=== PATIENT | male | born 1955 | race Caucasian/White ===

== ENCOUNTER → 2017-02-06 | Outpatient (CLI) | payer BC ==
[~2017-02-06] MED LIST: NCDT14 EX; THM100 PO
--- NOTE | 2017-02-06 11:58 | DIAGNOSTIC IMAGING REPORT ---
(CHEST) THORAX WITHOUT CLINICAL HISTORY: Pulmonary nodule. Follow-up study. COMPARISON STUDY: 04/25/2016 CT DOSE: 224.42 mGycm TECHNIQUE: CT of the thorax was performed from the thoracic inlet to the lung bases. Images are reviewed in the axial, sagittal, and coronal planes. IV contrast was not administered for this examination. A dose lowering technique was utilized adhering to the principles of ALARA. FINDINGS: Thyroid: Imaged portions of the thyroid gland are normal in appearance. Thoracic aorta: The thoracic aorta is normal in course and caliber, noting standard 3 vessel arch anatomy. Heart: There are coronary artery calcifications. Lungs and pleural spaces: No pleural effusions are visualized. There is no focal pulmonary consolidation. There are stable areas of interstitial scarring most pronounced within the left lower lobe and right upper lobe. There is a thin-walled 32 mm right upper lobe cavity, similar to the prior study. There is a stable 6 mm right lower lobe nodule, an area of parenchymal scarring. No new or enlarging pulmonary nodules are evident. Mediastinum: There is no mediastinal lymphadenopathy. Nataliia: There is no evidence of pathologic hilar adenopathy given the limitations of a noncontrast study Axilla: There is no evidence of pathologic axillary lymphadenopathy Upper abdomen: There is mild dilatation of the right renal collecting system, and pelvis Skeletal structures: There are no lytic or blastic osseous lesions. IMPRESSION: 1. Emphysema 2. Stable areas of presumed parenchymal scarring, including a thin-walled cavitary lesion within the right upper lobe measuring 32 mm, as well as a 6 mm irregular nodule within the superior segment of the right lower lobe. 3. No evidence of pathologic adenopathy 4. Mild fullness of the right renal collecting system Electronically signed by: Marcos Antonio M.D. 02/06/2017 11:57 AM Dictated Date/Time: 02/06/2017 11:52 AM
== END | disposition home or self-care (01) ==
LOC: C.CTS 11:12
PROVIDERS: ATTEND Internal Medicine
DX: R91.1 Solitary pulmonary nodule (principal); J43.9 Emphysema, unspecified

== ENCOUNTER → 2017-09-26 | Outpatient (CLI) | payer BC ==
--- NOTE | 2017-09-26 10:09 | DIAGNOSTIC IMAGING REPORT ---
CT SCAN OF THE CHEST WITHOUT IV CONTRAST CLINICAL HISTORY: Pulmonary nodules. COMPARISON STUDY: Chest CT scans dated 02/06/2017 and 10/03/2015. PET/CT dated 10/26/2015. TECHNIQUE: CT scan of the thorax was performed from the thoracic inlet to the upper abdomen. Images are reviewed in the axial, sagittal, and coronal planes. IV contrast was not administered for this examination as per the referring clinician. A dose lowering protocol was utilized adhering to the principles of ALARA. CT DOSE: 206.42 mGy.cm FINDINGS: Thyroid: Imaged portions of the thyroid gland are normal in size and attenuation. Thoracic aorta: There is atherosclerotic calcification of the thoracic aorta, which is normal in caliber and demonstrates standard 3-vessel arch anatomy. Heart: The heart is top normal in size and without pericardial effusion. The coronary arteries are densely calcified. The pulmonary trunk is normal in caliber. Lungs and pleural spaces: Emphysema an apical scarring are observed. Fat-containing Bochdalek hernias are seen at both lung bases. There is no airspace consolidation or pleural effusion. An approximately 3.5 cm focus of cavitation is again seen in the posterior right upper lobe with surrounding irregular soft tissue density material. This likely is unchanged and represents scarring/fibrosis. Additional foci of scarring are seen in both lower lobes, with a nodular focus in the superior segment of the right lower lobe measuring 6 mm. No new pulmonary lesion is identified. The trachea is clear. Minimal secretions are noted in the mainstem bronchi. Mediastinum: There is no mediastinal lymphadenopathy. Nataliia: Not well assessed without IV contrast. Axillae: There is no axillary lymphadenopathy. Upper abdomen: A 1.4 cm right adrenal nodule meets CT criteria for a fat-containing adenoma. A tiny hiatal hernia is observed. There is atherosclerotic calcification of the abdominal aorta. Skeletal structures: The skeletal structures are osteopenic. Mild degenerative change and scoliosis are noted throughout the thoracic spine. No lytic or blastic bony lesions are seen. A hemangioma is noted in the upper thoracic spine. There are healed bilateral rib fractures. IMPRESSION: 1. There has been no significant change in the focus of cavitation with surrounding abnormal soft tissue at the right apex as compared to studies dating back to 2016. This likely represents the sequelae of previous infection and scarring/fibrosis. 2. Additional foci of scarring are present in the both lower lobes with mild nodularity on the right. This is also unchanged. 3. Emphysema. 4. There is no airspace consolidation or pleural effusion. 5. Additional findings as above. Electronically signed by: Song Salcido M.D. 09/26/2017 10:07 AM Dictated Date/Time: 09/26/2017 9:59 AM
== END | disposition home or self-care (01) ==
LOC: C.CTS 09:41
PROVIDERS: ATTEND Physician Assistant
DX: R91.1 Solitary pulmonary nodule (principal)

== ENCOUNTER 2022-05-31 14:21 | Observation (INO) ==
[2022-05-31] MEDS ORDERED: methylPREDNISolone 125 MG/2 ML VIAL IV STA (14:37)
[2022-05-31] MEDS ORDERED: ALBUTEROL 0.083% NEBU SOLN 3 ML VIAL NEB STA (14:37)
--- NOTE | 2022-05-31 14:44 | Emergency Department Note ---
History of Present Illness General Chief complaint: Respiratory Distress Stated complaint: SOB Time Seen by Provider: 05/31/22 14:31 Source: patient and RN notes reviewed Mode of arrival: EMS Limitations: no limitations History of Present Illness This patient is a 66-year-old male who was brought in by EMS after having shortness of breath for a day he does a history of COPD D and has had exacerbations before but never this bad he tells me he does not wear home oxygen. They gave him 2 DuoNeb's and 2 albuterol on route. He does not wear oxygen at home. The nurse came and got me to see him quickly as his O2 sat was in the 70s and he was in a tripod position. When I saw him he was sitting on the bedside. He has some mild increased work of breathing he is able to speak several words and he is nondiaphoretic. His lungs sound diminished bilaterally with some scattered wheezes. He denies any chest pain. he denies any trauma no fever or chills. His cough has been mostly dry. No pain or swelling in his legs. Denies pain anywhere Allergies Allergy/AdvReac Type Severity Reaction Status Date / Time No Known Allergies Allergy Unverified 05/31/22 18:01 Past Med/Surg History Medical History Alcohol use disorder HTN (hypertension) Lung nodule Surgical History Hx of colonoscopy Family History Other Cancer Hypertension Social History Smoking Status: Former smoker Hx Alcohol Use: Yes Alcohol type: beer Alcohol type Comment: 5 beers nightly, last drink 05/30/22 Hx Substance Use: No Preferred Language: Ukrainian Communication Ability: Effective Tire Buster Required: No Beliefs That Will Affect Care: None Current Living Situation: Family Feels Safe at Home: Yes Safety Concerns: Feels Safe At This Time Assistive Devices: Denture - Upper, Denture - Lower and Glasses Immunizations: Past medical historyCOPD Allergiesdenies Social historyhistory of smoking Review of Systems A total of 10 systems reviewed and were otherwise negative Physical Exam Vital Signs Vital Signs - 24 hr 05/31/22 14:26 05/31/22 14:49 05/31/22 14:49 Pulse Rate 130 H Pulse Rate [Right Finger] Pulse Rate from SpO2 Sensor Respiratory Rate 28 H Respiratory Effort / Characteristics Labored Tripoding Labored Respiratory Depth Respiratory Pattern Tachypnea Blood Pressure 162/139 H Blood Pressure Mean 146 Pulse Oximetry 78 L 78 L Oxygen Delivery Method Room Air Room Air Room Air Fraction of Inspired Oxygen Sepsis Recent Fever Within 48 Hours No Sepsis New/Unexplained Change in Mental Status N/A Sepsis Action Taken by Nursing No Action Required 05/31/22 14:50 05/31/22 14:50 05/31/22 15:25 Pulse Rate 139 H Pulse Rate [Right Finger] 139 H Pulse Rate from SpO2 Sensor Respiratory Rate 27 H 27 H Respiratory Effort / Characteristics Spontaneous Labored Short of Breath Tripoding Spontaneous Labored Short of Breath Tripoding Respiratory Depth Normal Respiratory Pattern Tachypnea Blood Pressure Blood Pressure Mean Pulse Oximetry 96 96 99 Oxygen Delivery Method BiPAP BiPAP Fraction of Inspired Oxygen 30 30 Sepsis Recent Fever Within 48 Hours Sepsis New/Unexplained Change in Mental Status Sepsis Action Taken by Nursing 05/31/22 15:17 05/31/22 15:17 05/31/22 15:30 Pulse Rate 134 H Pulse Rate [Right Finger] Pulse Rate from SpO2 Sensor 135 H Respiratory Rate 27 H Respiratory Effort / Characteristics Respiratory Depth Respiratory Pattern Blood Pressure 116/74 110/93 Blood Pressure Mean 88 98 Pulse Oximetry 97 Oxygen Delivery Method BiPAP Fraction of Inspired Oxygen Sepsis Recent Fever Within 48 Hours Sepsis New/Unexplained Change in Mental Status Sepsis Action Taken by Nursing 05/31/22 15:30 05/31/22 16:00 05/31/22 16:23 Pulse Rate 136 H 135 H 136 H Pulse Rate [Right Finger] Pulse Rate from SpO2 Sensor 137 H 136 H Respiratory Rate 27 H 27 H 34 H Respiratory Effort / Characteristics Spontaneous Labored Retracting Short of Breath Respiratory Depth Respiratory Pattern Tachypnea Blood Pressure Blood Pressure Mean Pulse Oximetry 99 99 96 Oxygen Delivery Method Fraction of Inspired Oxygen 30 Sepsis Recent Fever Within 48 Hours Sepsis New/Unexplained Change in Mental Status Sepsis Action Taken by Nursing 05/31/22 16:06 05/31/22 16:06 05/31/22 16:30 Pulse Rate 136 H Pulse Rate [Right Finger] Pulse Rate from SpO2 Sensor 136 H Respiratory Rate 28 H Respiratory Effort / Characteristics Respiratory Depth Respiratory Pattern Blood Pressure 118/81 103/77 Blood Pressure Mean 93 85 Pulse Oximetry 99 Oxygen Delivery Method Fraction of Inspired Oxygen Sepsis Recent Fever Within 48 Hours Sepsis New/Unexplained Change in Mental Status Sepsis Action Taken by Nursing 05/31/22 16:30 05/31/22 17:00 05/31/22 17:30 Pulse Rate 135 H 134 H 130 H Pulse Rate [Right Finger] Pulse Rate from SpO2 Sensor 135 H 136 H 131 H Respiratory Rate 29 H 24 25 H Respiratory Effort / Characteristics Respiratory Depth Respiratory Pattern Blood Pressure Blood Pressure Mean Pulse Oximetry 94 94 95 Oxygen Delivery Method Fraction of Inspired Oxygen Sepsis Recent Fever Within 48 Hours Sepsis New/Unexplained Change in Mental Status Sepsis Action Taken by Nursing 05/31/22 17:31 05/31/22 17:31 Pulse Rate 134 H Pulse Rate [Right Finger] Pulse Rate from SpO2 Sensor 137 H Respiratory Rate 25 H Respiratory Effort / Characteristics Respiratory Depth Respiratory Pattern Blood Pressure 123/98 Blood Pressure Mean 106 Pulse Oximetry 95 Oxygen Delivery Method Fraction of Inspired Oxygen Sepsis Recent Fever Within 48 Hours Sepsis New/Unexplained Change in Mental Status Sepsis Action Taken by Nursing General: Well developed well nourished ill-appearing older male who is sitting on the side of the bed in a tripod position complaining of feeling short of breath. His speech is normal and he is able to speak several words. HEENT: Normal cephalic atraumatic. Pupils are equal round and reactive to light. Extraocular movements are intact. Oropharynx is pink with moist mucous membranes. No swelling of the mouth lips or tongue. Neck: Supple with a midline trachea. No meningeal signs or stiffness, no JVD or bruits. No Stridor. Chest: Diminished to auscultation bilaterally with some scattered wheezes and mild to moderate increased work of breathing. Heart: Regular rate and rhythm without murmurs or gallops. Abdomen: Soft nontender, nondistended without rebound guarding or rigidity. Extremities: No cyanosis clubbing or edema. No calf tenderness or assymetry Spine/Back. Non tender to palpation. No CVA tenderness Skin: Good turgor without rashes. Neurologic exam: Cranial nerves two through 12 are intact. Motor and sensation are intact and symmetrical throughout. Course Administered Medications Albuterol (Albut/Ipratrop 3mg/0.5mg Neb 3 Ml Vial) 3 ml NEB Q4R FRANCOIS; Protocol Stop: 06/30/22 18:59 Last Admin: 05/31/22 19:54 Dose: Not Given Documented By: CHERRIE Folic Acid (Folic Acid 1 Mg Tab) 1 mg PO QAM FRANCOIS Stop: 06/30/22 18:59 Last Admin: 05/31/22 21:16 Dose: Not Given Documented By: BASILIO Heparin Sodium/Dextrose (Heparin Sodium/Dextrose) 25,000 units in 500 mls @ 20 mls/hr IV .Q24H FRANCOIS; Protocol Stop: 06/30/22 18:44 Last Admin: 05/31/22 19:02 Dose: 1,000 units/hr, 20 mls/hr Documented By: YASH Co-signed By: GIANFRANCO Ceftriaxone Sodium 2,000 mg/ (Dextrose) 70 mls @ 100 mls/hr IV Q24H FRANCOIS; Pro tocol Stop: 06/07/22 19:29 Last Admin: 05/31/22 21:13 Dose: 100 mls/hr Documented By: BASILIO Methylprednisolone 40 mg/ (Syringe) 0.64 mls @ 1.5 mls/min IV BID FRANCOIS Stop: 06/30/22 20:59 Last Admin: 05/31/22 21:12 Dose: 1.5 mls/min Documented By: BASILIO Thiamine HCl (Thiamine Hcl 100 Mg Tab) 100 mg PO QAM FRANCOIS Stop: 06/30/22 18:59 Last Admin: 05/31/22 21:17 Dose: Not Given Documented By: BASILIO Discontinued Medications Albuterol (Albuterol 0.083% Nebu Soln 3 Ml Vial) 10 mg NEB NOW STA; Protocol Stop: 05/31/22 14:38 Last Admin: 05/31/22 14:49 Dose: 10 mg Documented By: DALLIN Aspirin (Aspirin Chew 324 Mg) Confirm Administered Dose 324 mg .ROUTE .STK-MED ONE Stop: 05/31/22 19:01 Last Admin: 05/31/22 19:09 Dose: 324 mg Documented By: YASH Aspirin (Aspirin 81 Mg Chew) 324 mg PO NOW STA Stop: 05/31/22 19:00 Last Admin: 05/31/22 20:23 Dose: Not Given Documented By: BASILIO Fentanyl Citrate (Fentanyl Citrate 100 Mcg/2 Ml Vial) Confirm Administered Dose 100 mcg .ROUTE .STK-MED ONE Stop: 05/31/22 19:16 Last Admin: 05/31/22 21:11 Dose: Not Given Documented By: BASILIO Heparin Sodium (Porcine) (Heparin Sod (Porcine) 1000 Unit/Ml) 4,000 units IV NOW ONE Stop: 05/31/22 19:01 Last Admin: 05/31/22 19:12 Dose: 4,000 units Documented By: YASH Co-signed By: JOSE Heparin Sodium (Porcine) (Heparin (Porcine) 1000 Unit/Ml 10 Ml (Almond Cutting Machine Tender Use Only)) Confirm Administered Dose 10,000 units .ROUTE .STK-MED ONE Stop: 05/31/22 19:16 Last Admin: 05/31/22 21:11 Dose: Not Given Documented By: BASILIO Heparin Sodium/Dextrose (Heparin Iv Adult Wt-Based Standard With Bolus Protocol) 1 each IV Q15M [facility]; Protocol Stop: 05/31/22 20:01 Last Admin: 05/31/22 21:10 Dose: 1 each Documented By: BASILIO Heparin Sodium/Sodium Chloride (Heparin In Nss Infusion 1000 Unit/500 Ml (2 U/Ml) Bag) Confirm Administered Dose 3,000 units IV .STK-MED ONE Stop: 05/31/22 19:16 Last Admin: 05/31/22 21:11 Dose: Not Given Documented By: BASILIO Cefepime HCl (Maxipime) 2,000 mg in 20 mls @ 5 mls/min IV NOW STA; Protocol Stop: 05/31/22 16:13 Last Admin: 05/31/22 16:36 Dose: 5 mls/min Documented By: ULISES Sodium Chloride (Nss 1000ml) 1,000 mls @ 999 mls/hr IV .Q1H1M ONE Stop: 05/31/22 17:14 Last Infusion: 05/31/22 17:55 Dose: 0 mls/hr Documented By: Admin: 05/31/22 16:36 Dose: 999 mls/hr Documented By: ULISES Lorazepam (Lorazepam 1 Mg/1 Ml Syr) 0.5 mg IV NOW STA; Protocol Stop: 05/31/22 17:57 Last Admin: 05/31/22 18:00 Dose: 0.5 mg Documented By: ULISES Methylprednisolone (Methylprednisolone 125 Mg/2 Ml Vial) 125 mg IV NOW STA Stop: 05/31/22 14:38 Last Admin: 05/31/22 15:21 Dose: 125 mg Documented By: ULISES Midazolam HCl (Midazolam Hcl 1 Mg/Ml 2ml Vial) Confirm Administered Dose 2 mg .ROUTE .STK-MED ONE Stop: 05/31/22 19:16 Last Admin: 05/31/22 21:12 Dose: Not Given Documented By: BASILIO Nicardipine HCl (Nicardipine Hcl Inj 2.5 Mg/Ml 10 Ml Amp) Confirm Administered Dose 25 mg .ROUTE .STK-MED ONE Stop: 05/31/22 19:16 Last Admin: 05/31/22 21:12 Dose: Not Given Documented By: BASILIO Nitroglycerin/Dextrose (Nitroglycerin/D5w 100mcg/Ml 20ml Syr) Confirm Administered Dose 2,000 mcg .ROUTE .STK-MED ONE Stop: 05/31/22 19:16 Last Admin: 05/31/22 21:12 Dose: Not Given Documented By: BASILIO Critical Care Time Critical Care Time: Yes Total Critical Care Time: 60 Due to the patient's respiratory distress, significant hypoxemia and unstable vital signs with a significantly abnormal labs and significant work-up obtained as well as consultation with intensive care cardiology and the hospitalist and frequent reassessment and discussion with the patient and his family, I have personally spent greater than 60 minutes of critical care time in the direct management of this patient. This includes bedside care, interpretation of diagnostic studies, and testing, discussion with consultants, patient, and family members, and other required patient management activities. This 60 minutes is in excess of all separately billable procedures. Medical Decision Making Differential Diagnosis COPD exacerbation, pneumonia, COVID, influenza, sepsis, acute coronary syndrome, arrhythmia, sepsis, hypoxemia, CO2 retention Medical Records Attestation: I reviewed the patient's medical records. Home Medications Current Medication List: was personally reviewed by me Laboratory Data Attestation: I reviewed the patient's lab results. Result diagrams: 05/31/22 19:00 05/31/22 19:00 Lab Results 05/31/22 05/31/22 05/31/22 Range/Units 15:12 15:15 15:15 WBC (4.8-10.8) K/ul RBC (4.63-6.08) M/uL Hgb (14.0-18.0) g/dl Hct (40.1-51.0) % MCV (80.0-100.0) fL MCH (25.0-34.0) pg MCHC (32.0-36.0) g/dL RDW Std Deviation (36.4-46.3) fL RDW Coeff of Gordon (11.5-14.5) % Plt Count (130-400) K/uL MPV (9.4-12.4) fL Immature Gran % (Auto) % Neut % (Auto) % Lymph % (Auto) % Reeves % (Auto) % Eos % (Auto) % Baso % (Auto) % Neut # (Auto) (1.4-6.5) K/uL Lymph # (Auto) (1.2-3.4) K/uL Reeves # (Auto) (0.24-0.82) K/uL Eos # (Auto) (0-0.50) K/uL Baso # (Auto) (0-0.2) K/uL Immature Gran # (Auto) (0.00-0.02) K/uL ABG pH (7.35-7.45) ABG pCO2 (35-46) mmHg ABG pO2 (80-95) mmHg ABG HCO3 (19-24) mmol/L ABG O2 Saturation (90-95) % ABG Base Excess (-9-1.8) mEq/L Horace Test (Pos) VBG pH (7.36-7.41) VBG pCO2 (38-50) mmHg VBG pO2 mmHg VBG HCO3 mmol/L VBG O2 Saturation % VBG Base Excess mEq/L Methemoglobin (0.0-1.5) % Oxygen Given Sodium 126 L (136-145) mmol/L Potassium 3.8 (3.5-5.1) mmol/L Chloride 85 L (98-107) mmol/L Carbon Dioxide 21 (21-32) mmol/L Anion Gap 20 H (3-11) BUN 21 (6-23) mg/dl Creatinine 1.17 (0.6-1.4) mg/dl Est Cr Clr Drug Dosing 48.1 ml/min Est GFR ( Amer) 74.3 ml/min Est GFR (Non-Af Amer) 64.1 ml/min BUN/Creatinine Ratio 17.9 (10-20) Glucose 229 H (70-99(Fasting)) mg/dl Osmolality (280-300) mOsm/kg Lactate 9.9 H* (0.4-2.0) mmol/L Calcium 9.6 (8.5-10.1) mg/dl Magnesium 2.6 H (1.7-2.4) mg/dl Total Bilirubin 1.1 H (0.2-1.0) mg/dl Direct Bilirubin 0.2 (0-0.2) mg/dl AST 297 H (13-39) U/L ALT 51 (7-52) U/L Alkaline Phosphatase 68 (34-104) U/L Troponin I High Sens 63664.3 H* (0-20) pg/ml B-Natriuretic Peptide (0-100) pg/ml Total Protein 7.7 (6.0-8.3) gm/dl Albumin 4.8 (3.4-5.0) gm/dl Procalcitonin 0.17 (0-0.5) ng/ml Salicylates (3.0-30) mg/dl Acetaminophen (10-30) ug/ml Ethyl Alcohol mg/dL (<10.0) mg/dl Adenovirus (PCR) (NotDetected) B. pertussis DNA (PCR) (NotDetected) B.parapertussis DNA PCR (NotDetected) C. pneumoniae DNA (PCR) (NotDetected) Coronavirus OC43 (PCR) (NotDetected) Coronavirus HKU1 (PCR) (NotDetected) Coronavirus 229E (PCR) (NotDetected) SARS-CoV-2 (PCR) (NotDetected) Coronavirus NL63 (PCR) (NotDetected) Human Metapneumovir PCR (NotDetected) Influenza Type A (PCR) (NotDetected) Influenza Type B (PCR) (NotDetected) M. pneumoniae (PCR) (NotDetected) Parainfluenza 1 (PCR) (NotDetected) Parainfluenza 2 (PCR) (NotDetected) Parainfluenza 3 (PCR) (NotDetected) Parainfluenza 4 (PCR) (NotDetected) RSV (PCR) (NotDetected) Entero/Rhino (PCR) (NotDetected) 05/31/22 05/31/22 05/31/22 Range/Units 15:15 15:15 15:16 WBC 19.30 H (4.8-10.8) K/ul RBC 4.73 (4.63-6.08) M/uL Hgb 14.9 (14.0-18.0) g/dl Hct 43.6 (40.1-51.0) % MCV 92.2 (80.0-100.0) fL MCH 31.5 (25.0-34.0) pg MCHC 34.2 (32.0-36.0) g/dL RDW Std Deviation 42.6 (36.4-46.3) fL RDW Coeff of Gordon 12.6 (11.5-14.5) % Plt Count 318 (130-400) K/uL MPV 9.5 (9.4-12.4) fL Immature Gran % (Auto) 0.7 % Neut % (Auto) 87.7 % Lymph % (Auto) 5.4 % Reeves % (Auto) 5.9 % Eos % (Auto) 0.1 % Baso % (Auto) 0.2 % Neut # (Auto) 16.93 H (1.4-6.5) K/uL Lymph # (Auto) 1.05 L (1.2-3.4) K/uL Reeves # (Auto) 1.13 H (0.24-0.82) K/uL Eos # (Auto) 0.01 (0-0.50) K/uL Baso # (Auto) 0.04 (0-0.2) K/uL Immature Gran # (Auto) 0.14 H (0.00-0.02) K/uL ABG pH (7.35-7.45) ABG pCO2 (35-46) mmHg ABG pO2 (80-95) mmHg ABG HCO3 (19-24) mmol/L ABG O2 Saturation (90-95) % ABG Base Excess (-9-1.8) mEq/L Horace Test (Pos) VBG pH 7.03 L (7.36-7.41) VBG pCO2 78 H (38-50) mmHg VBG pO2 36 mmHg VBG HCO3 21 mmol/L VBG O2 Saturation < 60.0 % VBG Base Excess -11.9 mEq/L Methemoglobin (0.0-1.5) % Oxygen Given Sodium (136-145) mmol/L Potassium (3.5-5.1) mmol/L Chloride (98-107) mmol/L Carbon Dioxide (21-32) mmol/L Anion Gap (3-11) BUN (6-23) mg/dl Creatinine (0.6-1.4) mg/dl Est Cr Clr Drug Dosing ml/min Est GFR ( Amer) ml/min Est GFR (Non-Af Amer) ml/min BUN/Creatinine Ratio (10-20) Glucose (70-99(Fasting)) mg/dl Osmolality (280-300) mOsm/kg Lactate (0.4-2.0) mmol/L Calcium (8.5-10.1) mg/dl Magnesium (1.7-2.4) mg/dl Total Bilirubin (0.2-1.0) mg/dl Direct Bilirubin (0-0.2) mg/dl AST (13-39) U/L ALT (7-52) U/L Alkaline Phosphatase (34-104) U/L Troponin I High Sens (0-20) pg/ml B-Natriuretic Peptide (0-100) pg/ml Total Protein (6.0-8.3) gm/dl Albumin (3.4-5.0) gm/dl Procalcitonin (0-0.5) ng/ml Salicylates (3.0-30) mg/dl Acetaminophen (10-30) ug/ml Ethyl Alcohol mg/dL (<10.0) mg/dl Adenovirus (PCR) Not Detected (NotDetected) B. pertussis DNA (PCR) Not Detected (NotDetected) B.parapertussis DNA PCR Not Detected (NotDetected) C. pneumoniae DNA (PCR) Not Detected (NotDetected) Coronavirus OC43 (PCR) Not Detected (NotDetected) Coronavirus HKU1 (PCR) Not Detected (NotDetected) Coronavirus 229E (PCR) Not Detected (NotDetected) SARS-CoV-2 (PCR) Not Detected (NotDetected) Coronavirus NL63 (PCR) Not Detected (NotDetected) Human Metapneumovir PCR Not Detected (NotDetected) Influenza Type A (PCR) Not Detected (NotDetected) Influenza Type B (PCR) Not Detected (NotDetected) M. pneumoniae (PCR) Not Detected (NotDetected) Parainfluenza 1 (PCR) Not Detected (NotDetected) Parainfluenza 2 (PCR) Not Detected (NotDetected) Parainfluenza 3 (PCR) Not Detected (NotDetected) Parainfluenza 4 (PCR) Not Detected (NotDetected) RSV (PCR) Not Detected (NotDetected) Entero/Rhino (PCR) Not Detected (NotDetected) 05/31/22 05/31/22 05/31/22 Range/Units 16:31 16:31 16:31 WBC (4.8-10.8) K/ul RBC (4.63-6.08) M/uL Hgb (14.0-18.0) g/dl Hct (40.1-51.0) % MCV (80.0-100.0) fL MCH (25.0-34.0) pg MCHC (32.0-36.0) g/dL RDW Std Deviation (36.4-46.3) fL RDW Coeff of Gordon (11.5-14.5) % Plt Count (130-400) K/uL MPV (9.4-12.4) fL Immature Gran % (Auto) % Neut % (Auto) % Lymph % (Auto) % Reeves % (Auto) % Eos % (Auto) % Baso % (Auto) % Neut # (Auto) (1.4-6.5) K/uL Lymph # (Auto) (1.2-3.4) K/uL Reeves # (Auto) (0.24-0.82) K/uL Eos # (Auto) (0-0.50) K/uL Baso # (Auto) (0-0.2) K/uL Immature Gran # (Auto) (0.00-0.02) K/uL ABG pH (7.35-7.45) ABG pCO2 (35-46) mmHg ABG pO2 (80-95) mmHg ABG HCO3 (19-24) mmol/L ABG O2 Saturation (90-95) % ABG Base Excess (-9-1.8) mEq/L Horace Test (Pos) VBG pH (7.36-7.41) VBG pCO2 (38-50) mmHg VBG pO2 mmHg VBG HCO3 mmol/L VBG O2 Saturation % VBG Base Excess mEq/L Methemoglobin (0.0-1.5) % Oxygen Given Sodium (136-145) mmol/L Potassium (3.5-5.1) mmol/L Chloride (98-107) mmol/L Carbon Dioxide (21-32) mmol/L Anion Gap (3-11) BUN (6-23) mg/dl Creatinine (0.6-1.4) mg/dl Est Cr Clr Drug Dosing ml/min Est GFR ( Amer) ml/min Est GFR (Non-Af Amer) ml/min BUN/Creatinine Ratio (10-20) Glucose (70-99(Fasting)) mg/dl Osmolality 283 (280-300) mOsm/kg Lactate (0.4-2.0) mmol/L Calcium (8.5-10.1) mg/dl Magnesium (1.7-2.4) mg/dl Total Bilirubin (0.2-1.0) mg/dl Direct Bilirubin (0-0.2) mg/dl AST (13-39) U/L ALT (7-52) U/L Alkaline Phosphatase (34-104) U/L Troponin I High Sens (0-20) pg/ml B-Natriuretic Peptide 1356 H (0-100) pg/ml Total Protein (6.0-8.3) gm/dl Albumin (3.4-5.0) gm/dl Procalcitonin (0-0.5) ng/ml Salicylates < 3.0 L (3.0-30) mg/dl Acetaminophen 4 L (10-30) ug/ml Ethyl Alcohol mg/dL (<10.0) mg/dl Adenovirus (PCR) (NotDetected) B. pertussis DNA (PCR) (NotDetected) B.parapertussis DNA PCR (NotDetected) C. pneumoniae DNA (PCR) (NotDetected) Coronavirus OC43 (PCR) (NotDetected) Coronavirus HKU1 (PCR) (NotDetected) Coronavirus 229E (PCR) (NotDetected) SARS-CoV-2 (PCR) (NotDetected) Coronavirus NL63 (PCR) (NotDetected) Human Metapneumovir PCR (NotDetected) Influenza Type A (PCR) (NotDetected) Influenza Type B (PCR) (NotDetected) M. pneumoniae (PCR) (NotDetected) Parainfluenza 1 (PCR) (NotDetected) Parainfluenza 2 (PCR) (NotDetected) Parainfluenza 3 (PCR) (NotDetected) Parainfluenza 4 (PCR) (NotDetected) RSV (PCR) (NotDetected) Entero/Rhino (PCR) (NotDetected) 05/31/22 05/31/22 05/31/22 Range/Units 16:31 16:33 16:36 WBC (4.8-10.8) K/ul RBC (4.63-6.08) M/uL Hgb (14.0-18.0) g/dl Hct (40.1-51.0) % MCV (80.0-100.0) fL MCH (25.0-34.0) pg MCHC (32.0-36.0) g/dL RDW Std Deviation (36.4-46.3) fL RDW Coeff of Gordon (11.5-14.5) % Plt Count (130-400) K/uL MPV (9.4-12.4) fL Immature Gran % (Auto) % Neut % (Auto) % Lymph % (Auto) % Reeves % (Auto) % Eos % (Auto) % Baso % (Auto) % Neut # (Auto) (1.4-6.5) K/uL Lymph # (Auto) (1.2-3.4) K/uL Reeves # (Auto) (0.24-0.82) K/uL Eos # (Auto) (0-0.50) K/uL Baso # (Auto) (0-0.2) K/uL Immature Gran # (Auto) (0.00-0.02) K/uL ABG pH 7.26 L (7.35-7.45) ABG pCO2 41 (35-46) mmHg ABG pO2 96 H (80-95) mmHg ABG HCO3 18 L (19-24) mmol/L ABG O2 Saturation > 100.0 H (90-95) % ABG Base Excess -8.3 (-9-1.8) mEq/L Horace Test Pos (Pos) VBG pH (7.36-7.41) VBG pCO2 (38-50) mmHg VBG pO2 mmHg VBG HCO3 mmol/L VBG O2 Saturation % VBG Base Excess mEq/L Methemoglobin 1.1 (0.0-1.5) % Oxygen Given 24% Sodium (136-145) mmol/L Potassium (3.5-5.1) mmol/L Chloride (98-107) mmol/L Carbon Dioxide (21-32) mmol/L Anion Gap (3-11) BUN (6-23) mg/dl Creatinine (0.6-1.4) mg/dl Est Cr Clr Drug Dosing ml/min Est GFR ( Amer) ml/min Est GFR (Non-Af Amer) ml/min BUN/Creatinine Ratio (10-20) Glucose (70-99(Fasting)) mg/dl Osmolality (280-300) mOsm/kg Lactate (0.4-2.0) mmol/L Calcium (8.5-10.1) mg/dl Magnesium (1.7-2.4) mg/dl Total Bilirubin (0.2-1.0) mg/dl Direct Bilirubin (0-0.2) mg/dl AST (13-39) U/L ALT (7-52) U/L Alkaline Phosphatase (34-104) U/L Troponin I High Sens (0-20) pg/ml B-Natriuretic Peptide (0-100) pg/ml Total Protein (6.0-8.3) gm/dl Albumin (3.4-5.0) gm/dl Procalcitonin (0-0.5) ng/ml Salicylates (3.0-30) mg/dl Acetaminophen (10-30) ug/ml Ethyl Alcohol mg/dL < 10.0 (<10.0) mg/dl Adenovirus (PCR) (NotDetected) B. pertussis DNA (PCR) (NotDetected) B.parapertussis DNA PCR (NotDetected) C. pneumoniae DNA (PCR) (NotDetected) Coronavirus OC43 (PCR) (NotDetected) Coronavirus HKU1 (PCR) (NotDetected) Coronavirus 229E (PCR) (NotDetected) SARS-CoV-2 (PCR) (NotDetected) Coronavirus NL63 (PCR) (NotDetected) Human Metapneumovir PCR (NotDetected) Influenza Type A (PCR) (NotDetected) Influenza Type B (PCR) (NotDetected) M. pneumoniae (PCR) (NotDetected) Parainfluenza 1 (PCR) (NotDetected) Parainfluenza 2 (PCR) (NotDetected) Parainfluenza 3 (PCR) (NotDetected) Parainfluenza 4 (PCR) (NotDetected) RSV (PCR) (NotDetected) Entero/Rhino (PCR) (NotDetected) 05/31/22 Range/Units 17:19 WBC (4.8-10.8) K/ul RBC (4.63-6.08) M/uL Hgb (14.0-18.0) g/dl Hct (40.1-51.0) % MCV (80.0-100.0) fL MCH (25.0-34.0) pg MCHC (32.0-36.0) g/dL RDW Std Deviation (36.4-46.3) fL RDW Coeff of Gordon (11.5-14.5) % Plt Count (130-400) K/uL MPV (9.4-12.4) fL Immature Gran % (Auto) % Neut % (Auto) % Lymph % (Auto) % Reeves % (Auto) % Eos % (Auto) % Baso % (Auto) % Neut # (Auto) (1.4-6.5) K/uL Lymph # (Auto) (1.2-3.4) K/uL Reeves # (Auto) (0.24-0.82) K/uL Eos # (Auto) (0-0.50) K/uL Baso # (Auto) (0-0.2) K/uL Immature Gran # (Auto) (0.00-0.02) K/uL ABG pH (7.35-7.45) ABG pCO2 (35-46) mmHg ABG pO2 (80-95) mmHg ABG HCO3 (19-24) mmol/L ABG O2 Saturation (90-95) % ABG Base Excess (-9-1.8) mEq/L Horace Test (Pos) VBG pH (7.36-7.41) VBG pCO2 (38-50) mmHg VBG pO2 mmHg VBG HCO3 mmol/L VBG O2 Saturation % VBG Base Excess mEq/L Methemoglobin (0.0-1.5) % Oxygen Given Sodium (136-145) mmol/L Potassium (3.5-5.1) mmol/L Chloride (98-107) mmol/L Carbon Dioxide (21-32) mmol/L Anion Gap (3-11) BUN (6-23) mg/dl Creatinine (0.6-1.4) mg/dl Est Cr Clr Drug Dosing ml/min Est GFR ( Amer) ml/min Est GFR (Non-Af Amer) ml/min BUN/Creatinine Ratio (10-20) Glucose (70-99(Fasting)) mg/dl Osmolality (280-300) mOsm/kg Lactate 9.3 H* (0.4-2.0) mmol/L Calcium (8.5-10.1) mg/dl Magnesium (1.7-2.4) mg/dl Total Bilirubin (0.2-1.0) mg/dl Direct Bilirubin (0-0.2) mg/dl AST (13-39) U/L ALT (7-52) U/L Alkaline Phosphatase (34-104) U/L Troponin I High Sens (0-20) pg/ml B-Natriuretic Peptide (0-100) pg/ml Total Protein (6.0-8.3) gm/dl Albumin (3.4-5.0) gm/dl Procalcitonin (0-0.5) ng/ml Salicylates (3.0-30) mg/dl Acetaminophen (10-30) ug/ml Ethyl Alcohol mg/dL (<10.0) mg/dl Adenovirus (PCR) (NotDetected) B. pertussis DNA (PCR) (NotDetected) B.parapertussis DNA PCR (NotDetected) C. pneumoniae DNA (PCR) (NotDetected) Coronavirus OC43 (PCR) (NotDetected) Coronavirus HKU1 (PCR) (NotDetected) Coronavirus 229E (PCR) (NotDetected) SARS-CoV-2 (PCR) (NotDetected) Coronavirus NL63 (PCR) (NotDetected) Human Metapneumovir PCR (NotDetected) Influenza Type A (PCR) (NotDetected) Influenza Type B (PCR) (NotDetected) M. pneumoniae (PCR) (NotDetected) Parainfluenza 1 (PCR) (NotDetected) Parainfluenza 2 (PCR) (NotDetected) Parainfluenza 3 (PCR) (NotDetected) Parainfluenza 4 (PCR) (NotDetected) RSV (PCR) (NotDetected) Entero/Rhino (PCR) (NotDetected) Imaging Data Attestation: I personally reviewed and interpreted this imaging study as follows: My Impression: Chest xray-mild increased interstitial markings which could be related to CHF or chronic lung disease. No pneumothorax seen Radiologist's Impression: Chest X-Ray 05/31/22 14:38 XR chest 1V portable HISTORY: 66 years-old Male Sepsis acute sepsis COMPARISON: Chest CT 09/26/2017 TECHNIQUE: AP view of the chest FINDINGS: Cardiac silhouette is mildly enlarged. Chronic scarring of the right lung apex. Pulmonary vascular congestion with interstitial coarsening. Small pleural effusions with mild bibasilar opacities. No pneumothorax. Degenerative changes of the shoulders and spine. Mild right shoulder rotator cuff calcific tendinosis. Emphysema. IMPRESSION: 1. Mild pulmonary edema. 2. Small pleural effusions with mild bibasilar consolidation. 3. Emphysema. ACT 112: Negative or not required by law. The above report was generated using voice recognition software. It may contain grammatical, syntax or spelling errors. Electronically signed by: Torres Marshall M.D. 05/31/2022 3:02 PM ECG Data Attestation: I personally reviewed and interpreted this ECG as follows: Indication: + SOB/dyspnea Rate (beats per minute): 128 Rhythm: + sinus tachycardia and + other (Poor baseline due to respiratory distress) ECG Intervals/blocks: + Normal QRS and + Prolonged QT ECG [place]: + Normal ECG ST segments: + Nonspecific ST abnormalities (There appear to be some lateral ST depressions) ECG Findings: no PACs or no PVCs Comparison ECG Date: no prior available Additional Comments: EKG #2: Sinus tachycardia with a rate of 136. Poor baseline. They do appear to be some lateral ST depressions which is unchanged from EKG #1 MDM Narrative This patient comes in as described above he presented by EMS and he was significantly short of breath and hypoxemic the nurse came and got me to see him I went to see him immediately. Besides shortness of breath, he has no other complaints. IV access had been established and I did order duo nebs continuously over 1 hour and I talked to respiratory we also started him on BiPAP and ordered a VBG will be. He does not wear home oxygen but there was concern over CO2 retention as well. Chest x-ray, EKG multiple blood testing was obtained including blood cultures. He was reassessed frequently. His chest x- ray shows some increased interstitial marking there could be a CHF component or infectious component with me more chronic lung disease with possible infiltrates in the bases. The patient did significantly better with the BiPAP and was looking a lot better though still is tachycardic his blood pressures remained stable. His blood gas came back markedly abnormal with a high CO2 and low pH. This is most likely respiratory acidosis which was addressed with the BiPAP. H is lactic acid is also elevated at 9.9 which could be infectious or could be related to nebulized treatment usage or other etiologies. His troponin is also significant elevated I got an EKG x2 and he may have some depressions laterally but no ST segment elevations but there is a poor baseline. He reports no chest pain. He does drink about 4 or 5 drinks a day. He has been using aspirin for chronic back pain but denies any excessive aspirin use. Denies any home brew alcohol or alcohol or ethylene glycol or moonshine. He has been feeling sick since yesterday. He was given cefepime 2 g IV. He was also given some gentle IV hydration concerning for sepsis. I given gently because is also concern for cardiac issues. I did consult Dr. Sal as I feel the patient is critically ill and will go to the ICU, he will need to add some extra labs which I did his ABG shows his pH is improving although he is acidotic more likely metabolic at this point I also consulted Dr. Fontaine, from cardiology, who did get an echo obtained in the ER and he does have severe LV dysfunction with inferior po sterior akinesis with an EF of 25 to 30%. With the elevated troponin and the low EF this may be all related to his heart and could be cardiogenic in nature as well. The patient was doing much better and then started getting agitated because he did not like the BiPAP. I did give him Ativan 0.5 mg IV. I have consulted the hospitalist to see him in the ED. The patient had improved significantly but still critically ill was seen in the ER by the critical care team as well and transferred to the critical care unit. His bio fire including COVID was negative. Continuous cardiac monitoring: Orders placed in EMR for continuous cardiac monitoring. Craig interpretation patient noted to be in sinus tachycardia with a rate of 120 Impression & Plan Acute respiratory failure with hypoxia, Lactic acidosis, Troponin level elevated, COPD exacerbation, Sepsis, Non-ST elevation (NSTEMI) myocardial infarction, Acute heart failure with reduced ejection fraction and diastolic dysfunction, Alcohol use disorder Discharge Plan Visit Data Chief Complaint: Respiratory Distress Stated Complaint: SOB ED Provider: Leonel Michelle Discharge Problem: Acute respiratory failure with hypoxia, Lactic acidosis, Troponin level elevated, COPD exacerbation, Sepsis, Non-ST elevation (NSTEMI) myocardial infarction, Acute heart failure with reduced ejection fraction and diastolic dysfunction, Alcohol use disorder Patient Disposition: Admitted As Inpatient Discharge Instructions Interventions: ED Discharge Assessment Last Done: 05/31/22 18:35
--- NOTE | 2022-05-31 15:04 | XRay Report ---
XR chest 1V portable HISTORY: 66 years-old Male Sepsis acute sepsis COMPARISON: Chest CT 09/26/2017 TECHNIQUE: AP view of the chest FINDINGS: Cardiac silhouette is mildly enlarged. Chronic scarring of the right lung apex. Pulmonary vascular co ngestion with interstitial coarsening. Small pleural effusions with mild bibasilar opacities. No pneu mothorax. Degenerative changes of the shoulders and spine. Mild right shoulder rotator cuff calcific tendinosis. Emphysema. IMPRESSION: 1. Mild pulmonary edema. 2. Small pleural effusions with mild bibasilar consolidation. 3. Emphysema. ACT 112: Negative or not required by law. The above report was generated using voice recognition software. It may contain grammatical, syntax o r spelling errors. Electronically signed by: Torres Marshall M.D. 05/31/2022 3:02 PM
[2022-05-31 15:25] LABS: Base Excess VBG -11.9 mEq/L; HCO3 VBG 21 mmol/L; Oxygen Saturation VBG < 60.0 %; PCO2 VBG 78 mmHg (38-50); PO2 VBG 36 mmHg; pH VBG 7.03 (7.36-7.41)
[2022-05-31 15:33] LABS: Basophils # (auto) 0.04 K/uL (0-0.2); Basophils % (auto) 0.2 %; Eosinophils # (auto) 0.01 K/uL (0-0.50); Eosinophils % (auto) 0.1 %; Hematocrit (blood only) 43.6 % (40.1-51.0); Hemoglobin 14.9 g/dl (14.0-18.0); Immature Granulocytes # (auto) 0.14 K/uL (0.00-0.02); Immature Granulocytes % (auto) 0.7 %; Lymphocytes # (auto) 1.05 K/uL (1.2-3.4); Lymphocytes % (auto) 5.4 %; Mean Corpuscular Hemoglobin 31.5 pg (25.0-34.0); Mean Corpuscular Hgb Conc 34.2 g/dL (32.0-36.0); Mean Corpuscular Volume 92.2 fL (80.0-100.0); Mean Platelet Volume 9.5 fL (9.4-12.4); Monocytes # (auto) 1.13 K/uL (0.24-0.82); Monocytes % (auto) 5.9 %; Neutrophils # (auto) 16.93 K/uL (1.4-6.5); Neutrophils % (auto) 87.7 %; Platelet Count 318 K/uL (130-400); RDW Coefficient of Variation 12.6 % (11.5-14.5); RDW Standard Deviation 42.6 fL (36.4-46.3); Red Blood Count 4.73 M/uL (4.63-6.08)
[2022-05-31 15:51] LABS: Albumin Level 4.8 gm/dl (3.4-5.0); BUN Creatinine Ratio 17.9 (10-20); Bilirubin Direct 0.2 mg/dl (0-0.2); Bilirubin,Total 1.1 mg/dl (0.2-1.0); Calcium 9.6 mg/dl (8.5-10.1); Creatinine Clr Calc Pharmacy 48.1 ml/min; Est GFR (African American) 74.3 ml/min; Est GFR (Non-African American) 64.1 ml/min; Magnesium 2.6 mg/dl (1.7-2.4); Potassium 3.8 mmol/L (3.5-5.1); Total Protein 7.7 gm/dl (6.0-8.3)
[2022-05-31 15:58] LABS: Troponin I High Sensitivity 15816.3 pg/ml (0-20)
[2022-05-31] MEDS ORDERED: CEFEPIME 2,000 MG/20 ML VIAL IV STA (16:10)
[2022-05-31 16:14] LABS: Adenovirus PCR Not Detected (NotDetected); Bordetella parapertussis PCR Not Detected (NotDetected); Bordetella pertussis PCR Not Detected (NotDetected); Chlamydia pneumoniae PCR Not Detected (NotDetected); Coronavirus 229E PCR Not Detected (NotDetected); Coronavirus CoV-2 (COVID19)PCR Not Detected (NotDetected); Coronavirus HKU1 PCR Not Detected (NotDetected); Coronavirus NL63 PCR Not Detected (NotDetected); Coronavirus OC43PCR Not Detected (NotDetected); Human Metapneumovirus PCR Not Detected (NotDetected); Influenza A PCR Not Detected (NotDetected); Influenza B PCR Not Detected (NotDetected); Mycoplasma pneumoniae PCR Not Detected (NotDetected); Parainfluenza Virus 1 PCR Not Detected (NotDetected); Parainfluenza Virus 2 PCR Not Detected (NotDetected); Parainfluenza Virus 3 PCR Not Detected (NotDetected); Parainfluenza Virus 4 PCR Not Detected (NotDetected); Respiratory Syncytial VirusPCR Not Detected (NotDetected); Rhinovirus/Enterovirus PCR Not Detected (NotDetected)
[2022-05-31] MEDS ORDERED: SODIUM CHLORIDE 0.9% 1000ML 1,000 ML IV ONE (16:14)
[2022-05-31 16:44] LABS: Base Excess ABG -8.3 mEq/L (-9-1.8); HCO3 ABG 18 mmol/L (19-24); Oxygen Saturation ABG > 100.0 % (90-95); PCO2 ABG 41 mmHg (35-46); PO2 ABG 96 mmHg (80-95); pH ABG 7.26 (7.35-7.45)
[2022-05-31 16:49] LABS: Allen Test Pos (Pos)
[2022-05-31 17:26] LABS: Acetaminophen 4 ug/ml (10-30); Salicylate < 3.0 mg/dl (3.0-30)
[2022-05-31] MEDS ORDERED: LORazepam 1 MG/1 ML SYR IV STA (17:56)
--- NOTE | 2022-05-31 17:56 | History & Physical Report ---
Date of Service May 31, 2022 Assessment & Plan (1) Acute respiratory failure with hypoxia: (2) COPD exacerbation: (3) Sepsis: (4) Troponin level elevated: (5) Alcohol use disorder: (6) HTN (hypertension): (7) Lung nodule: Plan This is a 66-year-old male with PMH of alcohol use disorder, hypertension, history of tobacco use who presents with worsening shortness of breath over the past 2 days and found to have acute hypoxic respiratory failure. Acute hypoxic respiratory failure Likely multifactorial in setting of COPD exacerbation, heart failure, ? ACS Mixed acidosis picture with resp failure and lactic acidosis Initially hypoxic in the 70s but much improved on BiPAP, now saturating at 95% ABG pH 7.26, PCO2 41, bicarb 18 NSTEMI Significantly elevated trop >15,000. No chest pain but significant SOB as anginal equivalent ? No known CAD per records. Stat echo ordered, read by Dr. Fontaine with reduced EF 20-25%, posterior and inferior wall is akinesis. IV heparin started, heart alert was called and patient will undergo cardiac catheterization COPD exacerbation 40 pack year history, quit in 2016. Does not use home inhalers or meds. Continue IV steroids, duonebs, bipap Sepsis Afebrile, WBC 19K, HR 130s, lactate 9.9 -> 9.3 No clear source as resp panel negative, CXR with mild pulmonary edema and small pleural effusions with mild bibasilar consolidation, urine pending Consider CT chest and abd/pelvis once stable and ACS evaluated Continue empiric antibiotics, repeat lactate Alcohol use disorder Endorsing 5 beers daily, last drink yesterday. Alcohol withdrawal protocol, PRN ativan Lung nodule Known per OP records. Follow up CT Back pain Lower back pain x 1 month, dx with back strain on 05/03 Consider imaging once clinically improved Code status: FULL PCP: Lorrie Dispo: Admitted to ICU Patient seen in collaboration with Dr. Russell. Please see addendum. History of Present Illness Chief Complaint: Shortness of breath Primary Care Provider: Elan Andrew, This is a 66-year-old male with PMH of alcohol use disorder, hypertension, history of tobacco use who presents with worsening shortness of breath over the past 2 days. Has history of COPD but is no longer taking any inhalers or medications for this. Does not use home oxygen. Endorses drinking 5 beers daily with most recent last night. Former smoker with [id number] history, quit in 2016. Denies any drug use. Does not take any home medications. Lives with his elderly mother. Was found in triage to be in tripod position and hypoxic in the 70s. Placed on BiPAP and significantly improved by time of evaluation. Denies any fever or chills or sick contacts at home. No recent illness. No headache, lightheadedness, chest pain, palpitations, nausea, vomiting, abdominal pain, dysuria, diarrhea constipation. Allergies Allergy/AdvReac Type Severity Reaction Status Date / Time No Known Allergies Allergy Unverified 05/31/22 18:01 Past Med/Surg History Medical History Alcohol use disorder HTN (hypertension) Lung nodule Surgical History Hx of colonoscopy Family History Other Cancer Hypertension Social History Smoking Status: Former smoker Hx Alcohol Use: Yes Alcohol type: beer Alcohol type Comment: 5 beers nightly, last drink 05/30/22 Hx Substance Use: No Preferred Language: Ivorian Communication Ability: Effective Framing Carpenter Required: No Beliefs That Will Affect Care: None Current Living Situation: Family Feels Safe at Home: Yes Assistive Devices: Denture - Upper, Denture - Lower and Glasses Review of Systems Review of Systems: At least ten systems reviewed and negative except as noted in the HPI. Physical Exam Physical Exam: General Appearance: WD/WN, vitals as above, NAD, sitting up in bed, bipap mask on, alert and answering questions appropriately Head: normocephalic, atraumatic Eyes: normal inspection, PERRL, conjunctivae normal, anicteric sclerae ENT: external ear and nose normal, bipap mask on Neck: normal visual inspection, trachea midline, no thyromegaly Respiratory: increased respiratory effort, diffuse rhonchi, no wheezing or rales. No accessory muscle use Cardiovascular: tachycardic rate, rhythm, no murmur, normal peripheral pulses, no BLE edema. Vessels: no JVD Chest: normal inspection of chest Abdomen/GI: normal bowel sounds, soft, nontender, no hepatosplenomegaly Extremities/Musculoskeletal: no cyanosis or clubbing, extremities motor strength 5/5 Neurologic: PERRL, EOMI, accommodation nl, no face palsy, no dysarthria, CN's II-XI intact bilaterally and moves all extremities Psychiatric: A+Ox3, euthymic affect Skin: no rashes, normal color, warm/dry Results & Data Results & Data ([facility]) Vital Signs (Past 12 Hours) Vital Signs Pulse Pulse Resp BP Pulse Ox O2 Del Method FiO2 05/31/22 16:30 135 H 29 H 94 05/31/22 16:30 103/77 05/31/22 16:06 136 H 28 H 99 05/31/22 16:06 118/81 05/31/22 16:23 136 H 34 H 96 30 05/31/22 16:00 135 H 27 H 99 05/31/22 15:30 136 H 27 H 99 05/31/22 15:30 110/93 05/31/22 15:17 134 H 27 H 97 BiPAP 05/31/22 15:17 116/74 05/31/22 15:25 99 BiPAP 05/31/22 14:50 139 H 27 H 96 30 05/31/22 14:50 139 H 27 H 96 BiPAP 30 05/31/22 14:49 Room Air 05/31/22 14:49 78 L Room Air 05/31/22 14:26 130 H 28 H 162/139 H 78 L Room Air Laboratory Results Short CBC 05/31/22 Range/Units 15:16 WBC 19.30 H (4.8-10.8) K/ul Hgb 14.9 (14.0-18.0) g/dl Hct 43.6 (40.1-51.0) % Plt Count 318 (130-400) K/uL BMP 05/31/22 15:12 Sodium 126 L Potassium 3.8 Chloride 85 L Carbon Dioxide 21 BUN 21 Creatinine 1.17 Glucose 229 H Calcium 9.6 Liver Function 05/31/22 Range/Units 15:12 Total Bilirubin 1.1 H (0.2-1.0) mg/dl Direct Bilirubin 0.2 (0-0.2) mg/dl AST 297 H (13-39) U/L ALT 51 (7-52) U/L Alkaline Phosphatase 68 (34-104) U/L Albumin 4.8 (3.4-5.0) gm/dl Diagnostic Findings Chest X-Ray 05/31/22 14:38 XR chest 1V portable HISTORY: 66 years-old Male Sepsis acute sepsis COMPARISON: Chest CT 09/26/2017 TECHNIQUE: AP view of the chest FINDINGS: Cardiac silhouette is mildly enlarged. Chronic scarring of the right lung apex. Pulmonary vascular congestion with interstitial coarsening. Small pleural effusions with mild bibasilar opacities. No pneumothorax. Degenerative changes of the shoulders and spine. Mild right shoulder rotator cuff calcific tendinosis. Emphysema. IMPRESSION: 1. Mild pulmonary edema. 2. Small pleural effusions with mild bibasilar consolidation. 3. Emphysema. ACT 112: Negative or not required by law. The above report was generated using voice recognition software. It may contain grammatical, syntax or spelling errors. Electronically signed by: Torres Marshall M.D. 05/31/2022 3:02 PM Supervising Physician Co-Signing Physician Notes Pt was seen and examined. Agreed with Rebecca RAMEY exam, assessment and plan. 66-year-old male with PMH of alcohol use disorder, hypertension, history of tobacco use who presents with worsening shortness of breath over the past 2 days and found to have acute hypoxic respiratory failure. [place] [address]170, ABG showed pH 7.26, PCO2 41, bicarb 18. Stat echo done showed reduced EF 20-25%, posterior and inferior wall is akinesis. EKG with ST depressions in lateral leads although artifact present.IV heparin started, heart alert was called and patient had emergent cardiac catheterization. cardiac cath revealed severe multivessel coronary disease with a severely calcified occluded left circumflex at the ostium. Cardiology recommending transfer to tertiary care for definitive management. She was transferred to [place] and she was accepted by cardiology Dr. Rafiq. Yvonne MD
[2022-05-31] MEDS ORDERED: LORazepam 1 MG TAB PO PRN (18:43)
[2022-05-31] MEDS ORDERED: Heparin IV Adult Wt-Based Standard WITH Bolus Protocol IV SCH (18:45)
[2022-05-31] MEDS ORDERED: HEPARIN SODIUM/DEXTROSE 25,000 UNITS/500 ML BAG IV SCH (18:45)
[2022-05-31] MEDS ORDERED: ASPIRIN 81 MG CHEW PO STA (18:59)
[2022-05-31] MEDS ORDERED: HEPARIN SOD (PORCINE) 1000 UNIT/ML IV ONE (19:00)
[2022-05-31] MEDS ORDERED: FOLIC ACID 1 MG TAB PO SCH (19:00)
[2022-05-31] MEDS ORDERED: THIAMINE HCL 100 MG TAB PO SCH (19:00)
[2022-05-31] MEDS ORDERED: ALBUT/IPRATROP 3MG/0.5MG NEB 3 ML VIAL NEB SCH (19:00)
[2022-05-31] MEDS ORDERED: ASPIRIN CHEW 324 MG ONE (19:00)
--- NOTE | 2022-05-31 19:07 | Procedure Note ---
Procedure Note Date of Service May 31, 2022 Note Bedside Ultrasound: Lung: Right:-B-lines appreciated anteriorly as well as posteriorly, small right-sided pleural effusion Left:-B-lines appreciated anteriorly and posteriorly, small left-sided pleural effusion Heart: Reduced EF, hypokinesis of the septal as well as anterior lateral wall. Minimal pericardial effusion Case was discussed with Dr. Fontaine, given the decreased EF on the echo, diffuse ST depression appreciated on the inferior lateral leads as well as diffuse B-lines on the bedside ultrasound; Heart rate will be called to take the patient to cardiac Guide. Dr. Fontaine was able to reach out to Dr. Rodney as well No clear source of sepsis. We will still continue with antibiotics. Please note the above document was generated using voice recognition software. It may contain grammatical, syntax or spelling errors.Any formal questions or concerns about the content, text or information contained within the body of this dictation should be directly addressed to the provider for clarification. Coding CPT Codes Pulmonary/Thoracic - Pulmonary and Thoracic: 81310 US, Chest, real time with imaging documentation ([id number]) [facility] Procedure Codes (Charges) Pulmonary/Thoracic Procedure 1: Pulmonary and Thoracic: 36779 US, Chest, real time with imaging documentation
[2022-05-31 19:09] LABS: Hemoglobin 14.4 g/dl (14.0-18.0); Mean Corpuscular Hemoglobin 31.4 pg (25.0-34.0); Mean Corpuscular Hgb Conc 34.3 g/dL (32.0-36.0); Mean Corpuscular Volume 91.7 fL (80.0-100.0); Mean Platelet Volume 8.9 fL (9.4-12.4); Platelet Count 275 K/uL (130-400); RDW Coefficient of Variation 12.6 % (11.5-14.5); RDW Standard Deviation 41.7 fL (36.4-46.3); Red Blood Count 4.58 M/uL (4.63-6.08); White Blood Count 17.08 K/ul (4.8-10.8)
[2022-05-31] MEDS ORDERED: fentaNYL citrate 100 MCG/2 ML VIAL ONE (19:15)
[2022-05-31] MEDS ORDERED: MIDAZOLAM HCL 1 MG/ML 2ML VIAL ONE (19:15)
[2022-05-31] MEDS ORDERED: niCARdipine HCL INJ 2.5 MG/ML 10 ML AMP ONE (19:15)
[2022-05-31] MEDS ORDERED: NITROGLYCERIN/D5W 100MCG/ML 20ML SYR ONE (19:15)
[2022-05-31] MEDS ORDERED: HEPARIN (PORCINE) 1000 UNIT/ML 10 ML (CATH LAB USE ONLY) ONE (19:15)
[2022-05-31 19:21] LABS: INR 1.1 (0.9-1.1); Partial Thromboplastin Ratio 1.1; Partial Thromboplastin Time 29.6 Seconds (21.0-31.0); Prothrombin Time 11.6 Seconds (9.0-12.0)
[2022-05-31 19:34] LABS: Albumin Globulin Ratio 1.8 (0.9-2); Albumin Level 4.6 gm/dl (3.4-5.0); BUN Creatinine Ratio 21.6 (10-20); Calcium 9.2 mg/dl (8.5-10.1); Creatinine Clr Calc Pharmacy 48.5 ml/min; Est GFR (African American) 75.1 ml/min; Est GFR (Non-African American) 64.8 ml/min; Globulin 2.6 gm/dl (2.5-4.0); Potassium 3.9 mmol/L (3.5-5.1); Total Protein 7.2 gm/dl (6.0-8.3)
--- NOTE | 2022-05-31 19:34 | Critical Care Consultation ---
Date of Consultation May 31, 2022 Assessment & Plan (1) NSTEMI (non-ST elevation myocardial infarction): (2) Heart failure with reduced ejection fraction: (3) Acute respiratory failure with hypoxia: (4) Lactic acidosis: (5) Alcohol use disorder: (6) HTN (hypertension): Plan Reason Critically Ill: 66 YOM presents with acute dyspnea and tachycardia. Noted with elevated HScTNI and ST depression with noted depressed EF and global hypokinesis on ECHO. Patient taken urgently to [facility] after ICU admission. Neuro - ETOH misuse CAM ICU: Negative - reportedly drinks 5 drinks per day, will initiate AAWS Cardiac - NSTEMI, HFrEF, Mitral Regurge, Shock Acute HFrEF taken to pathology laboratory director for ischemic evaluation with ST changes He is with rising lactate, with elevated BNP as well as elevated LFTs- likely all related cardiogenic shock- confirm post cath results If BP Post cath- confirms CAD with cardiogenic shock. Currently remains hemodyanmically stable with MAPS >65- if he decompensates will intiate dobutamine and levophed. Bp is borderline at this time will hold on diuresis. Respiratory - Respiratory failure requiring biPAP from Acute HFrEF, Previous smoker, Pulmonary Edema, Abnormal CXR with emphysematous changes Patient with blines on bedside POCUS with small bilateral pleural effusions as well- as above likely related to acute decompensated HF - Acute respiratory failure- BiPAP as needed to stave off intubation- diurese as BP supports He is previous smoker without any PFTS performed in the past and on no inhalers previously. ABG does not reelect hypercarbia- however unsure if this was completed on BiPAP He is without wheezing on exam and is with good air movement, will discontinue steroids at this time and initiate VIVIEN PCT and repeat lactate- no evidence of pneumonia on CXR GI - Elvated liver enzymes - no infectious source at this time, likely secondary to decompensated acute HF - RENAL/LYTES - No acute needs renal dose medications electrolyte protocol - No acute needs ENDO - No acute needs Hyperglycemic protocol HEME - No acute needs ID - SIRS SIRS without infective source identified at this time- Cardiogenic shock is likely the cause of the above as well. - PCT pending, lactate rising prior to pathology laboratory director- recheck following pathology laboratory director - Blood cultures pending on admission - without fever LINES/IV ACCESS - PIV Continue use of thes lines DVT PROPHYLAXIS - SCDS, Heparin infsuion DISPO- ICU I have personally spent 50 minutes of critical care time in the direct management of this patient. This is a life/limb threatening event. This includes time spent evaluating patient, direct bedside care, chart review, placing orders, interpretation of diagnostic studies, discussion with consultants, patient, and family members, as well as other required patient management activities. This time is exclusive of all separately billable procedures, and teaching time and separate from and in addition to any other critical care service time. Thank you for allowing us to participate in the care of this patient. Please refer to my attending physician's documentation for any further recommendations. Supervising Physician Co-Signing Physician Notes I saw and evaluated the patient with Matthew Farrar, and agree with findings and plan as documented in the note. 66-year-old male past medical history of COPD, hypertension, presented to hospital with complaint of shortness of breath In the ED patient's lactate was found to be 9.9. Troponin around 14,000. EKG showing ST depression in the anterior lateral leads. Patient was sent to the ICU for further management. At the time of examination patient blood pressure was in the 110s, he was tachycardic in mild respiratory distress Was able to talk in full sentences. Denied any significant chest pain. Did complain of mild chest tightness. He was saturating 94-95% on 1 L nasal cannula. Constitutional: Mild respiratory distress HEENT: EOMI, PERRLA Respiratory system: Decreased in bilaterally, no wheeze, no rhonchi, positive crackles bilateral lower lobes CVS: S1-S2 positive Abdomen: Soft, nontender, nondistended, positive bowel sounds x4 Extremities: +2 pulses bilaterally radialis/ dorsalis pedis, no cyanosis, edema bilateral lower extremity Neuro: Awake alert oriented x3 Psych: Normal mood and affect G/U: Positive De La Cruz --Prophylaxis VTE: Heparin drip GI: Protonix Lines: Peripheral Diet: N.p.o. Plan: Given the diffuse ST depression and elevated troponins with 2D echo showing decreased ejection fraction and global hypokinesis the possibility of patient having acute infarct is high. This was discussed with Dr. Fontaine on the phone and plan was to call heart alert and take the patient to cardiac [facility]. He did discuss this with Dr. Rodney as well Please note the above document was generated using voice recognition software. It may contain grammatical, syntax or spelling errors.Any formal questions or concerns about the content, text or information contained within the body of t his dictation should be directly addressed to the provider for clarification. History of Present Illness Reason for Consultation: ST depression with elevated HScTNI and Depressed EF which appear new. Requesting Physician: Yvonne Olmedo MD Attending Physician: Honorio Russell MD History of Present Illness 66 YOM with medical history of, ETOH misuse, HTN, Previous smoker- does not carry diagnosis of COPD nor with PFTS available. Patient came to the EMD today for complaints of low back pain and acute dyspnea. This woke him up on 05/30/22 at 1500 in the afternoon when he was lying down for a nap. He could not catch his breath and was up all night. In the EMD the patient had routine labs performed to include HScTNI and BNP. HScTNI was notably elevated and BNP was elevated. He had ECG performed which did reveal ST depressions latera/anterior. ECHO was performed and was interpreted with decrease in EF to 25-30% with global hypokinesis. He was initiall admitted for concerns of sepsis and COPD exacerbation. He was placed on BiPAP in the EMD for dyspnea and was given Ativan for his agitation. ICU was consulted at 1800. Case was discussed real time with cardiology by Dr. Sal and Dr. Fontaine. Patient was given ASA and started on Heparin infusion. Heart alert was subsequently called and patient was taken to the pathology laboratory director for evaluation. Patient reports he used to smoke 0.5PPD for ~40 years, Drinks 5 beers a day- has not had any symptoms of withdraw if he doesn't drink per family, he is not on any inhalers at home. Patient has noticed over the past few months that he needs to take a rest when he gets to the top of his stairs because of dysnpea. He has 13 stairs. Other than last night, he is able to lay flat without dyspnea. Overall patient with respiratory distress in the setting of myocardial injury/ischemia with depressed EF. Priority at this time will be to rule out myocardial ischemia causing respiratory distress. Bedside ultrasound performed by Dr. Sal on admission and he is with b lines on lung evaluation but not requiring high levels of oxygen. BP is marginal and was given 250ml fluid bolus. ASA was given on admission to the ICU and Heparin started. Post cath- confirms CAD that is unable to be intervened and cardiogenic shock. Patient awaiting to be transferred to [facility] for CABG evaluation. Allergies Allergy/AdvReac Type Severity Reaction Status Date / Time No Known Allergies Allergy Unverified 05/31/22 18:01 Patient History Medical History Alcohol use disorder HTN (hypertension) Lung nodule Surgical History Hx of colonoscopy Family History Other Cancer Hypertension Social History Smoking Status: Former smoker Hx Alcohol Use: Yes Alcohol type: beer Alcohol type Comment: 5 beers nightly, last drink 05/30/22 Hx Substance Use: No Preferred Language: Yoruba Communication Ability: Effective Health Assistant Required: No Beliefs That Will Affect Care: None Current Living Situation: Family Feels Safe at Home: Yes Assistive Devices: Denture - Upper, Denture - Lower and Glasses Review of Systems Review of Systems: REVIEW OF SYSTEMS: Constitutional: No fever, sweats or chills Eyes: No diplopia, no worsening or blurred vision ENT: normal hearing, no trouble swallowing, poor fitting dentures Respiratory: (+) dyspnea at rest and exertion, No cough, sputum, Cardiovascular: (+) back pain, No sternal chest pain, tightness or palpitations Abdomen: No pain, nausea, vomiting, diarrhea or constipation Neurologic: No weakness, numbness/tingling, or balance problems Psychiatric: No anxiety or depression Skin: No rash or itch Physical Exam Physical Exam: PHYSICAL EXAM: General: awake, alert, dysnpenic on BiPAP Head: Normocephalic, atraumatic ENT: PERRLA, EOMI, no pharyngeal exudate, mucous membranes dry Neuro: AAO x 3, speech clear and appropriate, strength intact bilaterally 5/5, sensation intact and equal all extremities and dermatomes, no pronator drift Chest: equal rise and fall of the chest, no accessory muscle use, no heaves or thrills, decreased in bases with fine crackles bases bilaterally, on BiPAP transitioned to NC, Cardiac: Regular rate and rhythm, telemetry reviewed- Sinus tachycardia 130s, skin warm dry, cap refill <3 seconds, peripheral pulses +2, mild JVD, no murmur, GI: NABS x 4 quadrants, soft, nontender to palpation, no rebound, guarding or tenderness : Spontaneously voiding, no pain, no CVA tenderness, Extremities: Normal inspection, no peripheral edema or erythema, calfs nontender to palpation Psych: Normal mood and affect Skin: no rash or erythema Results & Data Results & Data ([facility]) Vital Signs (Past 12 Hours) Vital Signs Pulse Pulse Resp BP Pulse Ox O2 Del Method FiO2 05/31/22 17:31 123/98 05/31/22 17:31 134 H 25 H 95 05/31/22 17:30 130 H 25 H 95 05/31/22 17:00 134 H 24 94 05/31/22 16:30 135 H 29 H 94 05/31/22 16:30 103/77 05/31/22 16:06 136 H 28 H 99 05/31/22 16:06 118/81 05/31/22 16:23 136 H 34 H 96 30 05/31/22 16:00 135 H 27 H 99 05/31/22 15:30 136 H 27 H 99 05/31/22 15:30 110/93 05/31/22 15:17 134 H 27 H 97 BiPAP 05/31/22 15:17 116/74 05/31/22 15:25 99 BiPAP 05/31/22 14:50 139 H 27 H 96 30 05/31/22 14:50 139 H 27 H 96 BiPAP 30 05/31/22 14:49 Room Air 05/31/22 14:49 78 L Room Air 05/31/22 14:26 130 H 28 H 162/139 H 78 L Room Air Laboratory Results Laboratory Results - last 24 hr 05/31/22 05/31/22 05/31/22 15:12 15:15 15:15 WBC RBC Hgb Hct MCV MCH MCHC RDW Std Deviation RDW Coeff of Gordon Plt Count MPV Immature Gran % (Auto) Neut % (Auto) Lymph % (Auto) Stephens % (Auto) Eos % (Auto) Baso % (Auto) Neut # (Auto) Lymph # (Auto) Stephens # (Auto) Eos # (Auto) Baso # (Auto) Immature Gran # (Auto) PT INR APTT PTT Ratio ABG pH ABG pCO2 ABG pO2 ABG HCO3 ABG O2 Saturation ABG Base Excess Horace Test VBG pH VBG pCO2 VBG pO2 VBG HCO3 VBG O2 Saturation VBG Base Excess Methemoglobin Oxygen Given Sodium 126 L Potassium 3.8 Chloride 85 L Carbon Dioxide 21 Anion Gap 20 H BUN 21 Creatinine 1.17 Est Cr Clr Drug Dosing 48.1 Est GFR ( Amer) 74.3 Est GFR (Non-Af Amer) 64.1 BUN/Creatinine Ratio 17.9 Glucose 229 H Osmolality Lactate 9.9 H* Calcium 9.6 Magnesium 2.6 H Total Bilirubin 1.1 H Direct Bilirubin 0.2 AST 297 H ALT 51 Alkaline Phosphatase 68 Troponin I High Sens 51466.3 H* B-Natriuretic Peptide Total Protein 7.7 Albumin 4.8 Globulin Albumin/Globulin Ratio Procalcitonin 0.17 Nasal Screen MRSA (PCR) Salicylates Acetaminophen Ethyl Alcohol mg/dL Adenovirus (PCR) B. pertussis DNA (PCR) B.parapertussis DNA PCR C. pneumoniae DNA (PCR) Coronavirus OC43 (PCR) Coronavirus HKU1 (PCR) Coronavirus 229E (PCR) SARS-CoV-2 (PCR) Coronavirus NL63 (PCR) Human Metapneumovir PCR Influenza Type A (PCR) Influenza Type B (PCR) M. pneumoniae (PCR) Parainfluenza 1 (PCR) Parainfluenza 2 (PCR) Parainfluenza 3 (PCR) Parainfluenza 4 (PCR) RSV (PCR) Entero/Rhino (PCR) 05/31/22 05/31/22 05/31/22 15:15 15:15 15:16 WBC 19.30 H RBC 4.73 Hgb 14.9 Hct 43.6 MCV 92.2 MCH 31.5 MCHC 34.2 RDW Std Deviation 42.6 RDW Coeff of Gordon 12.6 Plt Count 318 MPV 9.5 Immature Gran % (Auto) 0.7 Neut % (Auto) 87.7 Lymph % (Auto) 5.4 Stephens % (Auto) 5.9 Eos % (Auto) 0.1 Baso % (Auto) 0.2 Neut # (Auto) 16.93 H Lymph # (Auto) 1.05 L Stephens # (Auto) 1.13 H Eos # (Auto) 0.01 Baso # (Auto) 0.04 Immature Gran # (Auto) 0.14 H PT INR APTT PTT Ratio ABG pH ABG pCO2 ABG pO2 ABG HCO3 ABG O2 Saturation ABG Base Excess Horace Test VBG pH 7.03 L VBG pCO2 78 H VBG pO2 36 VBG HCO3 21 VBG O2 Saturation < 60.0 VBG Base Excess -11.9 Methemoglobin Oxygen Given Sodium Potassium Chloride Carbon Dioxide Anion Gap BUN Creatinine Est Cr Clr Drug Dosing Est GFR ( Amer) Est GFR (Non-Af Amer) BUN/Creatinine Ratio Glucose Osmolality Lactate Calcium Magnesium Total Bilirubin Direct Bilirubin AST ALT Alkaline Phosphatase Troponin I High Sens B-Natriuretic Peptide Total Protein Albumin Globulin Albumin/Globulin Ratio Procalcitonin Nasal Screen MRSA (PCR) Salicylates Acetaminophen Ethyl Alcohol mg/dL Adenovirus (PCR) Not Detected B. pertussis DNA (PCR) Not Detected B.parapertussis DNA PCR Not Detected C. pneumoniae DNA (PCR) Not Detected Coronavirus OC43 (PCR) Not Detected Coronavirus HKU1 (PCR) Not Detected Coronavirus 229E (PCR) Not Detected SARS-CoV-2 (PCR) Not Detected Coronavirus NL63 (PCR) Not Detected Human Metapneumovir PCR Not Detected Influenza Type A (PCR) Not Detected Influenza Type B (PCR) Not Detected M. pneumoniae (PCR) Not Detected Parainfluenza 1 (PCR) Not Detected Parainfluenza 2 (PCR) Not Detected Parainfluenza 3 (PCR) Not Detected Parainfluenza 4 (PCR) Not Detected RSV (PCR) Not Detected Entero/Rhino (PCR) Not Detected 05/31/22 05/31/22 05/31/22 16:31 16:31 16:31 WBC RBC Hgb Hct MCV MCH MCHC RDW Std Deviation RDW Coeff of Gordon Plt Count MPV Immature Gran % (Auto) Neut % (Auto) Lymph % (Auto) Stephens % (Auto) Eos % (Auto) Baso % (Auto) Neut # (Auto) Lymph # (Auto) Stephens # (Auto) Eos # (Auto) Baso # (Auto) Immature Gran # (Auto) PT INR APTT PTT Ratio ABG pH ABG pCO2 ABG pO2 ABG HCO3 ABG O2 Saturation ABG Base Excess Horace Test VBG pH VBG pCO2 VBG pO2 VBG HCO3 VBG O2 Saturation VBG Base Excess Methemoglobin Oxygen Given Sodium Potassium Chloride Carbon Dioxide Anion Gap BUN Creatinine Est Cr Clr Drug Dosing Est GFR ( Amer) Est GFR (Non-Af Amer) BUN/Creatinine Ratio Glucose Osmolality 283 Lactate Calcium Magnesium Total Bilirubin Direct Bilirubin AST ALT Alkaline Phosphatase Troponin I High Sens B-Natriuretic Peptide 1356 H Total Protein Albumin Globulin Albumin/Globulin Ratio Procalcitonin Nasal Screen MRSA (PCR) Salicylates < 3.0 L Acetaminophen 4 L Ethyl Alcohol mg/dL Adenovirus (PCR) B. pertussis DNA (PCR) B.parapertussis DNA PCR C. pneumoniae DNA (PCR) Coronavirus OC43 (PCR) Coronavirus HKU1 (PCR) Coronavirus 229E (PCR) SARS-CoV-2 (PCR) Coronavirus NL63 (PCR) Human Metapneumovir PCR Influenza Type A (PCR) Influenza Type B (PCR) M. pneumoniae (PCR) Parainfluenza 1 (PCR) Parainfluenza 2 (PCR) Parainfluenza 3 (PCR) Parainfluenza 4 (PCR) RSV (PCR) Entero/Rhino (PCR) 05/31/22 05/31/22 05/31/22 16:31 16:33 16:36 WBC RBC Hgb Hct MCV MCH MCHC RDW Std Deviation RDW Coeff of Gordon Plt Count MPV Immature Gran % (Auto) Neut % (Auto) Lymph % (Auto) Stephens % (Auto) Eos % (Auto) Baso % (Auto) Neut # (Auto) Lymph # (Auto) Stephens # (Auto) Eos # (Auto) Baso # (Auto) Immature Gran # (Auto) PT INR APTT PTT Ratio ABG pH 7.26 L ABG pCO2 41 ABG pO2 96 H ABG HCO3 18 L ABG O2 Saturation > 100.0 H ABG Base Excess -8.3 Horace Test Pos VBG pH VBG pCO2 VBG pO2 VBG HCO3 VBG O2 Saturation VBG Base Excess Methemoglobin 1.1 Oxygen Given 24% Sodium Potassium Chloride Carbon Dioxide Anion Gap BUN Creatinine Est Cr Clr Drug Dosing Est GFR ( Amer) Est GFR (Non-Af Amer) BUN/Creatinine Ratio Glucose Osmolality Lactate Calcium Magnesium Total Bilirubin Direct Bilirubin AST ALT Alkaline Phosphatase Troponin I High Sens B-Natriuretic Peptide Total Protein Albumin Globulin Albumin/Globulin Ratio Procalcitonin Nasal Screen MRSA (PCR) Salicylates Acetaminophen Ethyl Alcohol mg/dL < 10.0 Adenovirus (PCR) B. pertussis DNA (PCR) B.parapertussis DNA PCR C. pneumoniae DNA (PCR) Coronavirus OC43 (PCR) Coronavirus HKU1 (PCR) Coronavirus 229E (PCR) SARS-CoV-2 (PCR) Coronavirus NL63 (PCR) Human Metapneumovir PCR Influenza Type A (PCR) Influenza Type B (PCR) M. pneumoniae (PCR) Parainfluenza 1 (PCR) Parainfluenza 2 (PCR) Parainfluenza 3 (PCR) Parainfluenza 4 (PCR) RSV (PCR) Entero/Rhino (PCR) 05/31/22 05/31/22 05/31/22 17:19 19:00 19:00 WBC 17.08 H RBC 4.58 L Hgb 14.4 Hct 42.0 MCV 91.7 MCH 31.4 MCHC 34.3 RDW Std Deviation 41.7 RDW Coeff of Gordon 12.6 Plt Count 275 MPV 8.9 L Immature Gran % (Auto) Neut % (Auto) Lymph % (Auto) Stephens % (Auto) Eos % (Auto) Baso % (Auto) Neut # (Auto) Lymph # (Auto) Stephens # (Auto) Eos # (Auto) Baso # (Auto) Immature Gran # (Auto) PT INR APTT PTT Ratio ABG pH ABG pCO2 ABG pO2 ABG HCO3 ABG O2 Saturation ABG Base Excess Horace Test VBG pH VBG pCO2 VBG pO2 VBG HCO3 VBG O2 Saturation VBG Base Excess Methemoglobin Oxygen Given Sodium 127 L Potassium 3.9 Chloride 88 L Carbon Dioxide 21 Anion Gap 18 H BUN 25 H Creatinine 1.16 Est Cr Clr Drug Dosing 48.5 Est GFR ( Amer) 75.1 Est GFR (Non-Af Amer) 64.8 BUN/Creatinine Ratio 21.6 H Glucose 199 H Osmolality Lactate 9.3 H* Calcium 9.2 Magnesium Total Bilirubin 1.0 Direct Bilirubin AST 313 H ALT 74 H Alkaline Phosphatase 61 Troponin I High Sens 97377.5 H* B-Natriuretic Peptide Total Protein 7.2 Albumin 4.6 Globulin 2.6 Albumin/Globulin Ratio 1.8 Procalcitonin Nasal Screen MRSA (PCR) Salicylates Acetaminophen Ethyl Alcohol mg/dL Adenovirus (PCR) B. pertussis DNA (PCR) B.parapertussis DNA PCR C. pneumoniae DNA (PCR) Coronavirus OC43 (PCR) Coronavirus HKU1 (PCR) Coronavirus 229E (PCR) SARS-CoV-2 (PCR) Coronavirus NL63 (PCR) Human Metapneumovir PCR Influenza Type A (PCR) Influenza Type B (PCR) M. pneumoniae (PCR) Parainfluenza 1 (PCR) Parainfluenza 2 (PCR) Parainfluenza 3 (PCR) Parainfluenza 4 (PCR) RSV (PCR) Entero/Rhino (PCR) 05/31/22 05/31/22 05/31/22 19:00 19:00 19:00 WBC RBC Hgb Hct MCV MCH MCHC RDW Std Deviation RDW Coeff of Gordon Plt Count MPV Immature Gran % (Auto) Neut % (Auto) Lymph % (Auto) Stephens % (Auto) Eos % (Auto) Baso % (Auto) Neut # (Auto) Lymph # (Auto) Stephens # (Auto) Eos # (Auto) Baso # (Auto) Immature Gran # (Auto) PT 11.6 INR 1.1 APTT 29.6 PTT Ratio 1.1 ABG pH ABG pCO2 ABG pO2 ABG HCO3 ABG O2 Saturation ABG Base Excess Horace Test VBG pH VBG pCO2 VBG pO2 VBG HCO3 VBG O2 Saturation VBG Base Excess Methemoglobin Oxygen Given Sodium Potassium Chloride Carbon Dioxide Anion Gap BUN Creatinine Est Cr Clr Drug Dosing Est GFR ( Amer) Est GFR (Non-Af Amer) BUN/Creatinine Ratio Glucose Osmolality Lactate 9.6 H* Calcium Magnesium Total Bilirubin Direct Bilirubin AST ALT Alkaline Phosphatase Troponin I High Sens B-Natriuretic Peptide Total Protein Albumin Globulin Albumin/Globulin Ratio Procalcitonin Pending Nasal Screen MRSA (PCR) Salicylates Acetaminophen Ethyl Alcohol mg/dL Adenovirus (PCR) B. pertussis DNA (PCR) B.parapertussis DNA PCR C. pneumoniae DNA (PCR) Coronavirus OC43 (PCR) Coronavirus HKU1 (PCR) Coronavirus 229E (PCR) SARS-CoV-2 (PCR) Coronavirus NL63 (PCR) Human Metapneumovir PCR Influenza Type A (PCR) Influenza Type B (PCR) M. pneumoniae (PCR) Parainfluenza 1 (PCR) Parainfluenza 2 (PCR) Parainfluenza 3 (PCR) Parainfluenza 4 (PCR) RSV (PCR) Entero/Rhino (PCR) 05/31/22 19:00 WBC RBC Hgb Hct MCV MCH MCHC RDW Std Deviation RDW Coeff of Gordon Plt Count MPV Immature Gran % (Auto) Neut % (Auto) Lymph % (Auto) Stephens % (Auto) Eos % (Auto) Baso % (Auto) Neut # (Auto) Lymph # (Auto) Stephens # (Auto) Eos # (Auto) Baso # (Auto) Immature Gran # (Auto) PT INR APTT PTT Ratio ABG pH ABG pCO2 ABG pO2 ABG HCO3 ABG O2 Saturation ABG Base Excess Horace Test VBG pH VBG pCO2 VBG pO2 VBG HCO3 VBG O2 Saturation VBG Base Excess Methemoglobin Oxygen Given Sodium Potassium Chloride Carbon Dioxide Anion Gap BUN Creatinine Est Cr Clr Drug Dosing Est GFR ( Amer) Est GFR (Non-Af Amer) BUN/Creatinine Ratio Glucose Osmolality Lactate Calcium Magnesium Total Bilirubin Direct Bilirubin AST ALT Alkaline Phosphatase Troponin I High Sens B-Natriuretic Peptide Total Protein Albumin Globulin Albumin/Globulin Ratio Procalcitonin Nasal Screen MRSA (PCR) Pending Salicylates Acetaminophen Ethyl Alcohol mg/dL Adenovirus (PCR) B. pertussis DNA (PCR) B.parapertussis DNA PCR C. pneumoniae DNA (PCR) Coronavirus OC43 (PCR) Coronavirus HKU1 (PCR) Coronavirus 229E (PCR) SARS-CoV-2 (PCR) Coronavirus NL63 (PCR) Human Metapneumovir PCR Influenza Type A (PCR) Influenza Type B (PCR) M. pneumoniae (PCR) Parainfluenza 1 (PCR) Parainfluenza 2 (PCR) Parainfluenza 3 (PCR) Parainfluenza 4 (PCR) RSV (PCR) Entero/Rhino (PCR) Diagnostic Findings Chest X-Ray 05/31/22 14:38 XR chest 1V portable HISTORY: 66 years-old Male Sepsis acute sepsis COMPARISON: Chest CT 09/26/2017 TECHNIQUE: AP view of the chest FINDINGS: Cardiac silhouette is mildly enlarged. Chronic scarring of the right lung apex. Pulmonary vascular congestion with interstitial coarsening. Small pleural effusions with mild bibasilar opacities. No pneumothorax. Degenerative changes of the shoulders and spine. Mild right shoulder rotator cuff calcific tendinosis. Emphysema. IMPRESSION: 1. Mild pulmonary edema. 2. Small pleural effusions with mild bibasilar consolidation. 3. Emphysema. ACT 112: Negative or not required by law. The above report was generated using voice recognition software. It may contain grammatical, syntax or spelling errors. Electronically signed by: Torres Marshall M.D. 05/31/2022 3:02 PM Medications Administered Active Medications Albuterol (Albut/Ipratrop 3mg/0.5mg Neb 3 Ml Vial) 3 ml NEB Q4R [facility]; Protocol Stop: 06/30/22 18:59 Folic Acid (Folic Acid 1 Mg Tab) 1 mg PO QAM [facility] Stop: 06/30/22 18:59 Heparin Sodium/Dextrose (Heparin Iv Adult Wt-Based Standard With Bolus Protocol) 1 each IV Q15M FRANCOIS; Protocol Stop: 05/31/22 20:01 Heparin Sodium/Dextrose (Heparin Sodium/Dextrose) 25,000 units in 500 mls @ 20 mls/hr IV .Q24H [facility]CO[facility]; Protocol Stop: 06/30/22 18:44 Last Admin: 05/31/22 19:02 Dose: 1,000 units/hr, 20 mls/hr Methylprednisolone 40 mg/ (Dextrose) 250.64 mls @ 266 mls/hr IV BID [facility] Stop: 06/30/22 20:59 Ceftriaxone Sodium 2,000 mg/ (Dextrose) 70 mls @ 100 mls/hr IV Q24H [facility]RNACOIS; Protocol Stop: 06/07/22 19:29 Doxycycline Hyclate 100 mg/ (Dextrose) 110 mls @ 50 mls/hr IV Q12H [facility] Stop: 06/07/22 18:42 Lorazepam (Lorazepam 1 Mg Tab) 1 mg PO ONE PRN; Protocol PRN Reason: EtoH Withdrawal AWSS 6,7,8,9,10 Miscellaneous (Icu Protocol For Hyperglycemia) 1 each N/A ACHS [facility] Stop: 06/02/22 20:59 Thiamine HCl (Thiamine Hcl 100 Mg Tab) 100 mg PO QAM [facility] Stop: 06/30/22 18:59 ECG Additional Comments: Supraventricular tachycardia Incomplete right bundle branch block Left posterior fascicular block Possible Inferior infarct (cited on or before 31-MAY-2022) Possible Anterior infarct , age undetermined Abnormal ECG When compared with ECG of 31-MAY-2022 16:06, (unconfirmed) No significant change was found Coding Level of Care Code Critical Care 1st 30-74 mins Diagnoses NSTEMI (non-ST elevation myocardial infarction) I21.4 Heart failure with reduced ejection fraction I50.20 Acute respiratory failure with hypoxia J96.01 Lactic acidosis E87.20 Alcohol use disorder HTN (hypertension) I10
[2022-05-31 19:40] LABS: Troponin I High Sensitivity 14640.5 pg/ml (0-20)
--- NOTE | 2022-05-31 19:43 | Electrocardiogram Report ---
Test Reason : Blood Pressure : / mmHG Vent. Rate : 128 BPM Atrial Rate : 125 BPM P-R Int : 000 ms QRS Dur : 096 ms QT Int : 360 ms P-R-T Axes : 000 105 057 degrees QTc Int : 525 ms Poor data quality, interpretation may be adversely affected Probably sinus tachycardia Rightward axis Incomplete right bundle branch block Possible Inferior infarct , age undetermined Marked ST abnormality, possible anterolateral subendocardial injury Abnormal ECG Confirmed by Zen Ferraro ([id number]) on 05/31/2022 7:42:39 PM Referred By: ED Confirmed By:Alfred Ferraro
--- NOTE | 2022-05-31 19:49 | Cardiology Consultation ---
Date of Consultation May 31, 2022 Assessment & Plan (1) Non-ST elevation (NSTEMI) myocardial infarction: (2) Acute heart failure with reduced ejection fraction and diastolic dysfunction: (3) Acute respiratory failure with hypoxia: (4) Lactic acidosis: (5) Alcohol use disorder: Plan 66-year-old patient presented emergency department with NSTEMI, acute hypoxic respiratory failure. 2D echocardiogram demonstrates severe LV systolic dysfunction. Chest x-ray findings consistent with pulmonary edema. Patient with evidence of lactic acidosis, leukocytosis, and acidosis on admission. Initial concerns regarding sepsis, however, no obvious infectious source on presentation. Due to ongoing dynamic ECG changes, hypoxia, and severe LV systolic dysfunction, urgent cardiac catheterization recommended. Diagnostic cardiac catheterization reveals severe multivessel coronary disease with a severely calcified occluded left circumflex at the ostium. A severe ostial left circumflex calcification extends into the left main. The right coronary artery is totally occluded in its distal segment. The right coronary artery fills via left to right collaterals from the apical LAD. The LAD is also severely diseased in its proximal and mid segments. The first diagonal branch v essel is totally occluded. Due to severe calcification intervention was not performed. Patient will require transfer to tertiary care center for definitive management. Blood pressure remains borderline hypotensive and he is tachycardic. LVEDP significantly elevated per left heart catheterization. Patient would not would not tolerate dobutamine or milrinone. Consider low-dose Levophed or nore pinephrine as needed to maintain blood pressure support. Gentle diuresis as tolerated. Case discussed with critical care team. History of Present Illness Reason for Consultation: Elevated troponin, ECG changes Requesting Physician: Dr. Trenton Sal Attending Physician: Honorio Russell MD History of Present Illness 66-year-old patient presented to the emergency department with acute shortness of breath and hypoxia. No chest discomfort. Complaining of cough without sputum production. No orthopnea or PND. No chest discomfort. ECG with lateral ST depressions and sinus tachycardia. Patient placed on BiPAP with improvement. Treated with IV steroids, antibiotics, and IV fluid in the ER. Transferred to the ICU. I was contacted for stat consult. I spoke with the liner machine operator helper via telephone and reviewed ECGs as well as clinical course. Allergies Allergy/AdvReac Type Severity Reaction Status Date / Time No Known Allergies Allergy Unverified 05/31/22 18:01 Patient History Medical History Alcohol use disorder HTN (hypertension) Lung nodule Surgical History Hx of colonoscopy Family History Other Cancer Hypertension Social History Smoking Status: Former smoker Hx Alcohol Use: Yes Alcohol type: beer Alcohol type Comment: 5 beers nightly, last drink 05/30/22 Hx Substance Use: No Preferred Language: Welsh Communication Ability: Effective [employer] Licensee Required: No Beliefs That Will Affect Care: None Current Living Situation: Family Feels Safe at Home: Yes Safety Concerns: Feels Safe At This Time Assistive Devices: Denture - Upper, Denture - Lower and Glasses Review of Systems Review of Systems: All systems reviewed & are unremarkable except as noted in Subjective Physical Exam Constitutional: + thin Respiratory: + labored breathing (+bipap) Auscultation: + rhonchi; no rales and no wheezes Cardiovascular: Rate/Rhythm: regular rate, regular rhythm and + tachycardic Heart Sounds: normal S1 and normal S2; no murmur Extremities: no edema Gastrointestinal (Abdomen): Inspection/Auscultation: normal bowel sounds; abdomen not distended Percussion/Palpation: abdomen soft; abdomen nontender, no guarding and abdomen not rigid Neurologic: CN's II-XI intact bilaterally and moves all extremities Results & Data ([facility]) Vital Signs (Past 12 Hours) Vital Signs Pulse Pulse Resp BP Pulse Ox O2 Del Method FiO2 05/31/22 17:31 123/98 05/31/22 17:31 134 H 25 H 95 05/31/22 17:30 130 H 25 H 95 05/31/22 17:00 134 H 24 94 05/31/22 16:30 135 H 29 H 94 05/31/22 16:30 103/77 05/31/22 16:06 136 H 28 H 99 05/31/22 16:06 118/81 05/31/22 16:23 136 H 34 H 96 30 05/31/22 16:00 135 H 27 H 99 05/31/22 15:30 136 H 27 H 99 05/31/22 15:30 110/93 05/31/22 15:17 134 H 27 H 97 BiPAP 05/31/22 15:17 116/74 05/31/22 15:25 99 BiPAP 05/31/22 14:50 139 H 27 H 96 30 05/31/22 14:50 139 H 27 H 96 BiPAP 30 05/31/22 14:49 Room Air 05/31/22 14:49 78 L Room Air 05/31/22 14:26 130 H 28 H 162/139 H 78 L Room Air Diagnostic Findings 2D echocardiogram report: Severe left ventricular systolic dysfunction. Posterior and inferior wall akinesis. Otherwise severe global hypokinesis. Moderate mitral regurgitation. Mild tricuspid regurgitation.
[2022-05-31] MEDS ORDERED: cefTRIAXone SODIUM 2,000 MG in DEXTROSE 5% 50 ML IV SCH (20:00)
--- NOTE | 2022-05-31 20:33 | Pre Anesthesia Assessment ---
Date of Service May 31, 2022 Pre Sedation Assessment Vital Signs Temp Pulse Pulse Resp BP BP Pulse Ox 05/31/22 19:22 128 H 92/61 L 94 05/31/22 19:15 90/70 L 92 05/31/22 19:00 35.5 C L 130 H 29 H 96/66 L 94 05/31/22 18:54 131 H 20 86/66 L 96 05/31/22 18:45 132 H 29 H 101/72 97 05/31/22 19:52 05/31/22 19:41 35.5 C L 133 H 20 96/58 L 96 05/31/22 17:31 123/98 05/31/22 17:31 134 H 25 H 95 05/31/22 17:30 130 H 25 H 95 05/31/22 17:00 134 H 24 94 05/31/22 16:30 135 H 29 H 94 05/31/22 16:30 103/77 05/31/22 16:06 136 H 28 H 99 05/31/22 16:06 118/81 05/31/22 16:23 136 H 34 H 96 05/31/22 16:00 135 H 27 H 99 05/31/22 15:30 136 H 27 H 99 05/31/22 15:30 110/93 05/31/22 15:17 134 H 27 H 97 05/31/22 15:17 116/74 05/31/22 15:25 99 05/31/22 14:50 139 H 27 H 96 05/31/22 14:50 139 H 27 H 96 05/31/22 14:49 05/31/22 14:49 78 L 05/31/22 14:26 130 H 28 H 162/139 H 78 L O2 Del Method O2 Flow Rate FiO2 05/31/22 19:22 Nasal Cannula 2 05/31/22 19:15 Nasal Cannula 2 05/31/22 19:00 Nasal Cannula 2 05/31/22 18:54 Nasal Cannula 2 05/31/22 18:45 Nasal Cannula 2 05/31/22 19:52 Nasal Cannula 2 05/31/22 19:41 Nasal Cannula 2 05/31/22 17:31 05/31/22 17:31 05/31/22 17:30 05/31/22 17:00 05/31/22 16:30 05/31/22 16:30 05/31/22 16:06 05/31/22 16:06 05/31/22 16:23 30 05/31/22 16:00 05/31/22 15:30 05/31/22 15:30 05/31/22 15:17 BiPAP 05/31/22 15:17 05/31/22 15:25 BiPAP 05/31/22 14:50 30 05/31/22 14:50 BiPAP 30 05/31/22 14:49 Room Air 05/31/22 14:49 Room Air 05/31/22 14:26 Room Air Cardiovascular Additional Comments: Sinus tachycardia, S4 gallop, grade 2 out of 6 systolic murmur. 1+ radial pulse. Respiratory Additional Comments: Diffuse crackles. Poor air movement. Mild respiratory distress with speech. Pre-Sedation Airway Assessment Smoking Status: Former smoker Mallampati class III ASA class IV Notes The planned sedation has been discussed with the patient. Informed Consent was obtained. I have identified the patient, determined the appropriateness of sedation and have assessed the patient immediately prior to the procedure. All medicine(s) and interventions are by my order.
--- NOTE | 2022-05-31 20:35 | Post Anesthesia Assessment ---
Date of Service May 31, 2022 Post Sedation Assessment Vital Signs Temp Pulse Pulse Resp BP BP Pulse Ox 05/31/22 19:22 128 H 92/61 L 94 05/31/22 19:15 90/70 L 92 05/31/22 19:00 35.5 C L 130 H 29 H 96/66 L 94 05/31/22 18:54 131 H 20 86/66 L 96 05/31/22 18:45 132 H 29 H 101/72 97 05/31/22 19:52 05/31/22 19:41 35.5 C L 133 H 20 96/58 L 96 05/31/22 17:31 123/98 05/31/22 17:31 134 H 25 H 95 05/31/22 17:30 130 H 25 H 95 05/31/22 17:00 134 H 24 94 05/31/22 16:30 135 H 29 H 94 05/31/22 16:30 103/77 05/31/22 16:06 136 H 28 H 99 05/31/22 16:06 118/81 05/31/22 16:23 136 H 34 H 96 05/31/22 16:00 135 H 27 H 99 05/31/22 15:30 136 H 27 H 99 05/31/22 15:30 110/93 05/31/22 15:17 134 H 27 H 97 05/31/22 15:17 116/74 05/31/22 15:25 99 05/31/22 14:50 139 H 27 H 96 05/31/22 14:50 139 H 27 H 96 05/31/22 14:49 05/31/22 14:49 78 L 05/31/22 14:26 130 H 28 H 162/139 H 78 L O2 Del Method O2 Flow Rate FiO2 05/31/22 19:22 Nasal Cannula 2 05/31/22 19:15 Nasal Cannula 2 05/31/22 19:00 Nasal Cannula 2 05/31/22 18:54 Nasal Cannula 2 05/31/22 18:45 Nasal Cannula 2 05/31/22 19:52 Nasal Cannula 2 05/31/22 19:41 Nasal Cannula 2 05/31/22 17:31 05/31/22 17:31 05/31/22 17:30 05/31/22 17:00 05/31/22 16:30 05/31/22 16:30 05/31/22 16:06 05/31/22 16:06 05/31/22 16:23 30 05/31/22 16:00 05/31/22 15:30 05/31/22 15:30 05/31/22 15:17 BiPAP 05/31/22 15:17 05/31/22 15:25 BiPAP 05/31/22 14:50 30 05/31/22 14:50 BiPAP 30 05/31/22 14:49 Room Air 05/31/22 14:49 Room Air 05/31/22 14:26 Room Air Recovery Score Activity: Moves 4 extremities Respiration: Dyspnea/Limited Breathing Circulation: +/-20% PreAnes Value Consciousness: Fully Awake Oxygen Saturation: O2 needed for >90% Discharge Sedation Level of Care: Phase I Post Sedation Plan On clinical assessment, the patient appears to have tolerated the sedation without complications. Patient is recovering as anticipated. Patient will continue to be monitored by nursing and may be discharged when sedation discharge criteria are met per below protocol. Upon Completions of procedure up to 15 minutes continue every 5 minute vital signs and the P.A.R. score; then discharge to a Phase I or Fast Track to Phase II per the following guidelines: * Discharge Patient to appropriate Phase II area if PAR is 8 or greater or return to pre- procedure baseline. The post - procedure orders will be as directed. * If PAR score is less than 8 or not return to pre-procedure baseline then patient will follow Phase I monitoring till PAR is reached for Phase II. The Phase I may be done in procedure room or may call to secure a Phase I area. * If naloxone or flumazenil are used for reversal, hold in Phase I for continued monitoring from when last reversal dose was given for a minimum of 60 minutes or longer pending the nurse and/or physician discretion of patient condition before discharge to Phase II. Please call the Sedation Physician to re-evaluate and complete post-note for discharge to Phase II area. Do NOT discharge from procedure sedation or Phase 1 until post- sedation evaluation note is complete by procedure /sedation MD Sedation Discharge Instructions to be given to the patient at discharge to home. [facility] Procedure Codes (Charges) Indication for Procedure Indication for procedure: Elevated troponin, cardiomyopathy Sedation/Anesthesia Procedure 1: Sedation/Anesthesia: 03770 Mod Sedation by the same physician;Init15 Min Child Age 5 & Up (Initial 15 minutes (total 22 minutes)) Total Sedation Time (minutes): 22 Procedure 2: Sedation/Anesthesia: 21321 Mod Sedation by the same physician; Ea [id number] Minutes (7 additional minutes (total 22 minutes)) Total Sedation Time (minutes): 22
--- NOTE | 2022-05-31 20:43 | Cardiac Catheterization ---
[facility] Data: [facility] Cardiac Status Clinical evaluation leading to the procedure CAD Presenation: Non STEMI Coronary Anatomy Dominant: Right Left Main (% Stenosis): Distal (Severe calcified 50+ percent) LAD (% Stenosis): Ostial (50 to 60%), Proximal (Complex calcified 70 to 80%), Mid (Heavily calcified 80 to 90%) and Distal (Mild luminal irregularities) D1 (% Stenosis): Proximal (100% (chronic total occlusion)) D2 (% Stenosis): Proximal (50%) Circumflex (% Stenosis): Ostial (100% heavily calcified chronic total occlusion) RCA (% Stenosis): Proximal (Diffuse up to 70%), Mid (Diffuse severe. 99 to 100% chronic occlusion just prior to distal) and Distal (Not well-visualized) R PDA (% Stenosis): Normal (Small caliber, long, fills via left to right and right to right collaterals not well visualized) Diagnostic Physicians Name: Boaz Rodney MD, PhD Closure Device Percutaneous Entry Location: Radial Closure Device: Radial Band Recommendations: Medical Therapy and/or Counseling (Patient will need evaluation at tertiary center for complex revascularization) Cardiac Cath Procedure Full Procedure Date May 31, 2022 Pre-Procedure Diagnosis Pre-Procedure Diagnosis: Non STEMI and Cardiomyopathy AUC Score AUC Score: 09 Post-Procedure Diagnosis Post-Procedure Diagnosis: Severe CAD and Elevated Intracardiac Pressures Procedure(s) Performed Procedure(s) Performed: Coronary Angiography and Left Heart Cath Correspondence Section Supervisor Boaz Rodney MD, PhD Estimated Blood Loss Estimated Blood Loss: 10 mL Medication(s) Medication(s): Fentanyl and Lidocaine 1% Summary of Findings Brief description: Patient was brought to the cardiac catheterization suite where he was shaved and prepped in a sterile fashion. Sedated using IV fentanyl. Soft tissues of the right wrist were anesthetized using 1 mL of 1% Xylocaine. The right radial artery was accessed using a modified Seldinger technique and a 6 Haitian radial artery glide sheath was placed. All catheters were advanced and exchanged over a 0.035 J-tip wire. Antispasmodics were not used secondary to low normal blood pressure. Patient had been on heparin prior to arrival so additional heparin was not provided. Left coronary angiography was performed in orthogonal views with a 5 Haitian TIGR 4 diagnostic catheter Right coronary angiography was performed in orthogonal views with a 5 Haitian TIGR 4 diagnostic catheter Left heart cath was performed with a 5 Haitian pigtail catheter. Diagnostic catheters were removed. Radial artery sheath was removed. Hemostasis was obtained using a TR band. Patient was returned to the ICU in stable condition. This ended the case. Coronary angiography findings: LMT: Medium to large caliber vessel which bifurcates into LAD and left circumflex. Moderate to severe calcification with angiographically 50% or more distal stenosis. LAD: Medium to large caliber and transapical vessel. There is ostial stenosis of 50 to 60%. The proximal LAD is severely calcified with diffuse disease and in the extending lesion of at least 70 to 80%. This lesion is complex there appears to be a septal branch and at the same level a residual stump of a likely diagonal branch. Just after this the mid LAD has severe calcium and severe stenosis of 80 to 90%. There is an additional diagonal branch whose ostium has 50% stenosis. The diagonal is medium caliber and branches distally. After this diagonal the LAD is medium to large in caliber provides several septal branches courses to the apex and there it wraps the apex. This segment of the LAD has minimal calcification and no more than mild luminal irregularities. Left to right collaterals originate from the LAD via the septum's and the apical portion. LCx: Heavily calcified and likely not dominant. Just to be on the ostium the vessel appears to be 100% occluded. There is no staining of the segment and this appears to be a chronic total occlusion. Calcification patter suggests an AV groove segment after the occlusion which provides an obtuse marginal. Beyond that there is a linear calcification and what may be the AV groove but this is never visualized by angiography. RCA: Medium to large caliber vessel which is probably dominant. There is moderate to severe diffuse calcification throughout the mid and proximal vessel with at least moderate distal calcification. Proximal segment with diffuse disease up to 70% narrowed. Mid segment has diffuse disease and then appears to be 100% occluded prior to the distal segment. There is some late filling of the distal segment likely from right to right or bridging collaterals. The most distal segment appears to branch into a long small caliber PDA and possibly a posterolateral branch. These fills via left to right collateralization and are suboptimally visualized. Summary: 1. Severe multivessel coronary disease including left main, LAD, chronic total occlusion of the RCA, and chronic total occlusion of the circumflex. RCA territory myocardium appears to be perfused via left to right and right to right collateralization. There is no observable collateralization to the circumflex territory. 2. Severely elevated left ventricular filling pressure Hemodynamics Rest Ao:: 97/80 mmHg, mean 89 mmHg Final Ao: 91/71 mmHg, mean 79 mmHg LV: 92/38 mmHg, LVEDP 43 mmHg Recommendations Recommendations: Medical Therapy and/or Counseling (Patient will need evaluation at tertiary center for complex revascularization) Radiation Exposure (mGy) 475 mGy, 2.8 minutes fluoroscopy time Contrast (mls) 80 mL Anesthesia 25 mg IV fentanyl Procedural Complication(s) None Disposition ICU I attest to the content of the Intraoperative Record and any orders documented therein. Any exceptions are noted below. [employer] Card Cath Procedure Codes Cardiac Catheterization Procedure 1: Cardiovascular Cath Procedures: 99645 Coronaries and LHC (+/-LV) Moderate Sedation Procedure 1: Sedation/Anesthesia: 49351 Mod Sedation by the same physician;Init15 Min Child Age 5 & Up (15 minutes (22 minutes total time)) Procedure 2: Sedation/Anesthesia: 23773 Mod Sedation by the same physician; Ea [id number] Minutes (Additional 7 minutes (total time 22 minutes)) PG Care Time/CCT Total # of Minutes Spent Total Time Spent with Patient: Total time spent is greater than 50% in coordination of care (as documented) at patient's floor/unit and/or counseling patient:
[2022-05-31] MEDS ORDERED: methylPREDNISolone 40 MG in SYRINGE 0 ML IV SCH (21:00)
[2022-05-31] MEDS ORDERED: methylPREDNISolone 40 MG in DEXTROSE 5% 250 ML IV SCH (21:00)
[2022-05-31] MEDS ORDERED: ICU Protocol for HYPERglycemia SCH (21:00)
[2022-05-31] MEDS ORDERED: DEXTROSE 50% 50 ML SYRINGE IV PRN (21:18)
[2022-05-31] MEDS ORDERED: GLUCAGON FOR INJ 1 MG VIAL SQ PRN (21:18)
[2022-05-31] MEDS ORDERED: GLUCOSE 40% GEL 15 GM TUBE PO PRN (21:18)
[2022-05-31] MEDS ORDERED: CARBOHYDRATES FOR HYPOGLYCEMIA PO PRN (21:18)
[2022-05-31] MEDS ORDERED: GLUCOSE 10 TAB/TUBE PO PRN (21:18)
[2022-05-31] MEDS ORDERED: INSULIN ASPART PER UNIT SC SCH (21:45)
--- NOTE | 2022-05-31 21:45 | Discharge Summary ---
Date of Service May 31, 2022 Admission HPI Per Admitting Provider This is a 66-year-old male with PMH of alcohol use disorder, hypertension, history of tobacco use who presents with worsening shortness of breath over the past 2 days. Has history of COPD but is no longer taking any inhalers or medications for this. Does not use home oxygen. Endorses drinking 5 beers daily with most recent last night. Former smoker with [id number] history, quit in 2016. Denies any drug use. Does not take any home medications. Lives with his elderly mother. Was found in triage to be in tripod position and hypoxic in the 70s. Placed on BiPAP and significantly improved by time of evaluation. Denies any fever or chills or sick contacts at home. No recent illness. No headache, lightheadedness, chest pain, palpitations, nausea, vomiting, abdominal pain, dysuria, diarrhea constipation. Admission Exam Per Admitting Provider General Appearance: WD/WN, vitals as above, NAD, sitting up in bed, bipap mask on, alert and answering questions appropriately Head: normocephalic, atraumatic Eyes: normal inspection, PERRL, conjunctivae normal, anicteric sclerae ENT: external ear and nose normal, bipap mask on Neck: normal visual inspection, trachea midline, no thyromegaly Respiratory: increased respiratory effort, diffuse rhonchi, no wheezing or rales. No accessory muscle use Cardiovascular: tachycardic rate, rhythm, no murmur, normal peripheral pulses, no BLE edema. Vessels: no JVD Chest: normal inspection of chest Abdomen/GI: normal bowel sounds, soft, nontender, no hepatosplenomegaly Extremities/Musculoskeletal: no cyanosis or clubbing, extremities motor strength 5/5 Neurologic: PERRL, EOMI, accommodation nl, no face palsy, no dysarthria, CN's II-XI intact bilaterally and moves all extremities Psychiatric: A+Ox3, euthymic affect Skin: no rashes, normal color, warm/dry Principal Diagnosis Hypoxic respiratory failure, multivessel coronary artery disease, cardiogenic shock, acute decompensated heart failure Discharge Exam General Appearance: WD/WN, vitals as above, NAD, sitting up in bed, bipap mask on, alert and answering questions appropriately Head: normocephalic, atraumatic Eyes: normal inspection, PERRL, conjunctivae normal, anicteric sclerae ENT: external ear and nose normal, bipap mask on Neck: normal visual inspection, trachea midline, no thyromegaly Respiratory: increased respiratory effort, diffuse rhonchi, no wheezing or rales. No accessory muscle use Cardiovascular: tachycardic rate, rhythm, no murmur, normal peripheral pulses, no BLE edema. Vessels: no JVD Chest: normal inspection of chest Abdomen/GI: normal bowel sounds, soft, nontender, no hepatosplenomegaly Extremities/Musculoskeletal: no cyanosis or clubbing, extremities motor strength 5/5 Neurologic: PERRL, EOMI, accommodation nl, no face palsy, no dysarthria, CN's II-XI intact bilaterally and moves all extremities Psychiatric: A+Ox3, euthymic affect Skin: no rashes, normal color, warm/dry Discharge Data Allergies Allergy/AdvReac Type Severity Reaction Status Date / Time No Known Allergies Allergy Unverified 05/31/22 18:01 Consultations 05/31/22 16:42 ED Decision to Admit Stat 05/31/22 18:09 Consult Plastic Panel Installer Routine 05/31/22 18:22 Consult Cardiology Stat 05/31/22 20:55 Burn CD for patient Stat Procedures Performed Operation Date: 05/31/22 19:30 Actual Procedures p Cath, Left with Cors and Vent - Boaz Rodney MD, PhD s Cineradiography w/Routine Exam - Boaz Rodney MD, PhD Ordered Studies 05/31/22 18:52 US point of care ultrasound Stat 05/31/22 19:14 CL Cath Imgs for PACS use only Stat Hospital Course (1) Acute respiratory failure with hypoxia: (2) NSTEMI (non-ST elevation myocardial infarction): (3) Heart failure with reduced ejection fraction: (4) Cardiogenic shock: (5) SIRS (systemic inflammatory response syndrome): (6) HTN (hypertension): (7) COPD exacerbation: (8) Alcohol use disorder: (9) Lung nodule: Plan This is a 66-year-old male with PMH of alcohol use disorder, hypertension, history of tobacco use who presents with worsening shortness of breath over the past 2 days presenting to ED with acute hypoxic respiratory failure and NSTEMI. Has been feeling more fatigued with low back pain but developed more acute SOB this afternoon, prompting presentation to ED. Family adds later that patient has been on disability for the past month due to feeling poorly. Has history of COPD and alcohol use but does not take any medications. No known CAD. Upon arrival to the ED, found to be hypoxic in the 70s improved significantly on BiPAP. Also notably tachycardic. Initial lab work with leukocytosis of 19 K, lactate 9.9, initial troponin greater than 15,000. EKG with ST depressions in lateral leads although artifact present. Also initial concerns regarding sepsis due to elevated white count and lactic acidosis but no source identified. Care coordinated with optical manager and cardiology. Stat echo reveals reduced EF of 20- 25% with posterior and inferior wall akinesis. Heart alert was called and patient was taken for urgent cardiac catheterization, which reveals severe multivessel coronary disease with a severely calcified occluded left circumflex at the ostium. Cardiology recommending transfer to tertiary care for definitive management. Blood pressure now borderline hypotensive and remains tachycardic. Considering low-dose Levophed or an epinephrine as needed to maintain blood pressure while in cardiogenic shock but not requiring at this time. Patient accepted by cardiology service Dr. Leyva at [facility] and will be transported via helicopter. Patient in ICU post-cath where he is alert and oriented. Most recent vitals BP 96/58, HR 133, RR 26. Transitioned off of BiPAP onto nasal cannula oxygen saturating 96% on 2 L. Does have history of alcohol use disorder and is on withdrawal precautions. Total Time Total Time Spent Total Time Spent (In Minutes): 60 Discharge Plan Discharge Items Patient Disposition: Transfer Acute Care Hospital Reason For Visit: ACUTE HYPOXIC RESP FAILURE Discharge Diagnosis: Acute hypoxic respiratory failure, multivessel coronary artery disease, decompensated heart failure, cardiogenic shock Activity: As commented below Non-emergency contact: Primary Care Provider Call non-emergency contact if: you have any medication questions, your symptoms worsen, your pain is not controlled, your pain is worsening, your pain is unusual for you, your pain is concerning for you, you have a fever, your rectal temperature is above 100.4, your temperature is above 101, your temperature is above 101.5, your wound has increased redness, your wound has increased drainage and your wound pain has increased Follow-up/Referrals: Elan Andrew, [Primary Care Provider] - Diet: Nothing by Mouth Addtl Attending Provider Instructions: 66-year-old patient presented emergency department with NSTEMI, acute hypoxic respiratory failure. Underwent cardiac cath and was found to have severe multivessel coronary disease. Being transferred to [place] for further intervention. Pending Studies at Discharge: No Stand-Alone Forms: My [facility] Skilled Items Patient informed of condition?: Yes DNR: No Discharge Level of Care: Other Communicable Disease: No Discharge Prognosis: Deteriorating Lines: Peripheral IV Urinary Catheter: Yes Medications and DC Order Discharge Orders: Discharge Order (Routine); Ordered 05/31/22 Ordered By: Raymond Handley Admission Data Admit Date/Time: 05/31/22 17:32 Attending Provider: Honorio Russell Admit Provider: Honorio Russell Primary Care Provider: Elan Andrew Other Providers: Trenton Sal ; Honorio Russell ; Johnson Fontaine Other Interventions: Discharge Summary Assessment (RN) Last Done: 05/31/22 21:29
[2022-05-31] MEDS ORDERED: DOXYCYCLINE HYCLATE 100 MG in DEXTROSE 5% 100 ML IV SCH (22:00)
[2022-05-31 22:04] LABS: Appearance Urine Cloudy (Clear); Bacteria Urine Automated Negative (Negative); Bilirubin Urine Negative (Negative); Blood Urine 1+ (Negative); Color Urine Yellow; Epithelial Cell Urine Auto >30 /lpf (0-5); Glucose Urine UA Negative (Negative); Ketones Urine Negative (Negative); Leukocyte Esterase Urine Negative (Negative); Nitrite Urine Negative (Negative); Protein Urine 1+ (Negative); RBC Urine Automated 0-4 /hpf (0-4); Specific Gravity Urine > 1.045 (1.000-1.030); Urobilinogen Urine Negative (Negative)
--- NOTE | 2022-06-01 12:59 | Electrocardiogram Report ---
Test Reason : Blood Pressure : / mmHG Vent. Rate : 132 BPM Atrial Rate : 133 BPM P-R Int : 000 ms QRS Dur : 098 ms QT Int : 350 ms P-R-T Axes : 000 110 056 degrees QTc Int : 518 ms Poor data quality, interpretation may be adversely affected Supraventricular tachycardia , possibly atrial flutter Incomplete right bundle branch block Left posterior fascicular block Abnormal ECG When compared with ECG of 31-MAY-2022 16:06, (unconfirmed) No significant change was found Confirmed by Zen Ferraro ([id number]) on 06/01/2022 12:59:19 PM Referred By: REFERRED SELF Confirmed By:Alfred Ferraro
--- NOTE | 2022-06-01 13:16 | Electrocardiogram Report ---
Test Reason : Blood Pressure : / mmHG Vent. Rate : 123 BPM Atrial Rate : 062 BPM P-R Int : 000 ms QRS Dur : 094 ms QT Int : 354 ms P-R-T Axes : 000 116 007 degrees QTc Int : 506 ms Poor data quality, interpretation may be adversely affected Supraventricular tachycardia likely atrial flutter Left posterior fascicular block Abnormal ECG Confirmed by Zen Ferraro ([id number]) on 06/01/2022 1:16:01 PM Referred By: REFERRED SELF Confirmed By:Alfred Ferraro
--- NOTE | 2022-06-01 13:17 | Electrocardiogram Report ---
Test Reason : Blood Pressure : / mmHG Vent. Rate : 136 BPM Atrial Rate : 141 BPM P-R Int : 000 ms QRS Dur : 092 ms QT Int : 362 ms P-R-T Axes : 000 115 085 degrees QTc Int : 544 ms Poor data quality, interpretation may be adversely affected Supraventricular tachycardia likely atrial flutter Incomplete right bundle branch block Left posterior fascicular block Marked ST abnormality, possible anterolateral subendocardial injury Abnormal ECG Confirmed by Zen Ferraro ([id number]) on 06/01/2022 1:16:44 PM Referred By: REFERRED SELF Confirmed By:Alfred Ferraro
== END 2022-05-31 22:25 | disposition short-term general hospital (02) ==
LOC: ED 14:21 → INTOOBSV 17:32 → 1E 17:32
DX: I10 Essential (primary) hypertension; I50.9 Heart failure, unspecified; I25.10 Atherosclerotic heart disease of native coronary artery without angina pectoris; R57.0 Cardiogenic shock; Z87.891 Personal history of nicotine dependence; J96.01 Acute respiratory failure with hypoxia

== ENCOUNTER 2022-07-08 02:06 | Inpatient (IN) ==
[2022-07-08 02:40] LABS: Basophils # (auto) 0.07 K/uL (0-0.2); Basophils % (auto) 0.4 %; Eosinophils # (auto) 0.36 K/uL (0-0.50); Eosinophils % (auto) 1.9 %; Hematocrit (blood only) 34.7 % (40.1-51.0); Hemoglobin 10.8 g/dl (14.0-18.0); Immature Granulocytes # (auto) 0.13 K/uL (0.00-0.02); Immature Granulocytes % (auto) 0.7 %; Lymphocytes # (auto) 2.74 K/uL (1.2-3.4); Lymphocytes % (auto) 14.2 %; Mean Corpuscular Hemoglobin 29.8 pg (25.0-34.0); Mean Corpuscular Hgb Conc 31.1 g/dL (32.0-36.0); Mean Corpuscular Volume 95.9 fL (80.0-100.0); Mean Platelet Volume 10.5 fL (9.4-12.4); Monocytes # (auto) 1.15 K/uL (0.24-0.82); Neutrophils # (auto) 14.82 K/uL (1.4-6.5); Neutrophils % (auto) 76.8 %; Platelet Count 500 K/uL (130-400); RDW Coefficient of Variation 15.5 % (11.5-14.5); RDW Standard Deviation 54.6 fL (36.4-46.3); Red Blood Count 3.62 M/uL (4.63-6.08); White Blood Count 19.27 K/ul (4.8-10.8)
[2022-07-08 02:41] LABS: iSTAT Creatinine 0.7 mg/dl (0.6-1.3); iSTAT Hemoglobin 12.2 g/dl (14.0-18.0); iSTAT Ionized Calcium 1.11 mmol/l (1.12-1.32); iSTAT Potassium 3.8 mmol/L (3.3-5.0)
--- NOTE | 2022-07-08 02:41 | Emergency Department Note ---
Impression & Plan Respiratory failure with hypoxia and hypercapnia, Pulmonary edema, Elevated troponin, Uncontrolled diabetes mellitus with hyperglycemia Admit to the [facility] ED Provider Note NAME: JORGE CHAKRABORTY AGE: 66 SEX: M ARRIVES VIA: Ambulance INFORMANT: Patient and EMS ED PROVIDER(S): Niurka Yang DO CHIEF COMPLAINT: Increasing shortness of breath PLAN: Disposition: Admit to the [facility] Condition: Critical MEDICAL DECISION MAKING: This is a 66-year-old male patient from [facility] who presents to the emergency department with increasing shortness of breath. The patient presents from [facility] with acute onset of worsening respiratory failure as the patient tried to get up to go to the bathroom. Patient has an extensive history of a recent prolonged stay at [facility] with a prolonged intubation and an episode of a ruptured aortic balloon pump. I reviewed multiple external records from both [facility] in [place] and [facility]. The patient has both a history of congestive heart failure and COPD. Today's presentation of respiratory failure appears to be consistent with an acute episode of pulmonary edema. The patient has responded fairly well to BiPAP, IV nitroglycerin and IV Lasix. Initial ABG had a pH of 7.1 and elevated PCO2. Second ABG shows a pH of 7.23 with a PCO2 of 62. The patient has an elevated white blood cell count at 19,000. There could be a superimposed pneumonia as there are questionable opacities noted on chest x-ray. Patient's blood sugar is noted to be greater than 300 as the patient is diabetic. He is not currently having his blood sugars checked at [facility]. While at [place] he was receiving insulin. Patient does currently have an elevated troponin which is most likely reflective of the heart failure. I discussed the case with the [facility] and they will evaluate for further inpatient care. Triage Nursing notes reviewed and agree with them. [Additional history obtained from] EMS who brought him from [facility] External records from [facility] were reviewed including his extensive records from [facility] which revealed a prolonged intubation and the events of a ruptured balloon pump. Vital Signs: reviewed and remarkable for tachypnea Differential diagnosis: CHF, COPD, pneumonia, STEMI, NSTEMI ER treatment provided: IV Lasix BiPAP IV Solu-Medrol IV nitroglycerin Cardiac monitoring Twelve-lead EKG De La Cruz catheter placement Diagnostics interpreted by me: ECG: Normal sinus rhythm at a rate of [address] segment elevation or signs of ischemia. There is however a poor baseline. Cardiac Monitoring: Normal sinus rhythm at 86 Laboratory studies: See below Imaging studies: As per my interpretation Portable chest x-ray: Diffuse pulmonary edema HPI: 66/M arrives for evaluation of shortness of breath. The patient presents from [facility] where he was admitted approximately 6 days ago from [facility] after prolonged stay/intubation following a cardiac cath and ruptured aortic balloon pump. Tonight, the patient developed a fairly sudden onset of increasing shortness of breath this evening after he got up to go to the bathroom. Patient does have a history of COPD as well as CHF. PAST MEDICAL HISTORY: COPD, CHF, heart disease PAST SURGICAL HISTORY:See Below FAMILY HISTORY:See Below SOCIAL HISTORY:See Below HOME MEDICATIONS:See list ALLERGIES:See list VITALS:See Below PHYSICAL EXAMINATION: HEENT: Head - normocephalic and atraumatic. Pupils are equal, round, and reactive to light. Extraocular eye muscles are intact, and sclera are anicteric. Nose - moist nasal mucosa without discharge. Mouth - moist buccal mucosa. Oropharynx is nonerythematous and there is no tonsillar exudate or edema noted. Neck: Supple; no JVD, nuchal rigidity, cervical lymphadenopathy, or auscultated bruits. Heart: Regular rate and rhythm. There is a normal S1 and S2 with no murmurs, clicks, or gallops appreciated. Lungs: Very little air movement. Abdomen: Soft, completely nontender, nondistended, with good bowel sounds. There are no palpable pulsatile masses or hepatosplenomegaly. There is no guarding, rigidity, or rebound noted. Extremities: No evidence of cyanosis, clubbing, or edema. There are easily palpable peripheral pulses. Skin: warm and dry with good turgor and no rashes. ED COURSE: Times/Reassessments: 220: The patient was evaluated in room B1. A complete history and physical was performed. Laboratory studies were drawn as above. An order was placed for continuous cardiac monitoring. Patient was in a normal sinus rhythm at a rate of 86. A twelve-lead EKG was obtained as described above. Patient remained on BiPAP as was switched over from EMS. Patient was given a dose of IV Solu-Medrol in case this was COPD exacerbation. The patient remained on 10 mcg of IV nitroglycerin. A portable chest x-ray was performed. An ABG was obtained. This showed significant respiratory acidosis. Some slight adjustments were made to the BiPAP to increase patient's rate. Patient was given a dose of IV Lasix. A De La Cruz catheter was placed to better monitor the patient's output I discussed the case with the patient to determine if he would want to be intubated if necessary. He explained he would only want this if it was an absolute last resort. After some time, the patient's respiratory effort seem to improve. We repeated the ABG, the pH began to increase and a PCO2 seem to come down. I discussed the case with the [facility] and they will evaluate for further management. The patient's son arrived at the bedside And I reviewed all the findings with him. I have personally spent greater than 70 minutes of critical care time in the direct management of this patient. This includes bedside care, interpretation of diagnostic studies, and testing, discussion with consultants, patient, and family members, and other required patient management activities. This 70 minutes is in excess of all separately billable procedures. Niurka Yang, Past Med/Surg History Medical History Alcohol use disorder HTN (hypertension) Lung nodule Surgical History Hx of colonoscopy Family History Other Cancer Hypertension Social History Smoking Status: Former smoker Tobacco Type: Cigarettes Hx Alcohol Use: Yes Alcohol type: beer Alcohol type Comment: 5 beers nightly, last drink 05/30/22 Hx Substance Use: No Preferred Language: [place] Communication Ability: Effective Farmer Vegetable Required: No Beliefs That Will Affect Care: None Current Living Situation: Family Feels Safe at Home: Yes Safety Concerns: Feels Safe At This Time Assistive Devices: Denture - Upper, Denture - Lower and Glasses Allergies Allergies Allergy/AdvReac Type Severity Reaction Status Date / Time piperacillin [From Zosyn] Allergy Unknown ON Verified 07/08/22 02:26 [facility] tazobactam [From Zosyn] Allergy Unknown ON Verified 07/08/22 02:26 [facility] Home Meds Home Medications Medication Instructions Recorded Confirmed acetaminophen 325 mg tablet 325 mg PO Q4H PRN Pain 07/08/22 07/08/22 (Tylenol) albuterol sulfate 90 mcg/actuation 2 puff inhalation Q4H PRN 07/08/22 07/08/22 aerosol inhaler Shortness Of Breath Or Wheezing albuterol sulfate 90 mcg/actuation 2 puff inhalation QID 07/08/22 07/08/22 aerosol inhaler amiodarone 200 mg tablet 200 mg PO DAILY 07/08/22 07/08/22 apixaban 5 mg tablet (Eliquis) 5 mg PO BID 07/08/22 07/08/22 atorvastatin 80 mg tablet 80 mg PO DAILY 07/08/22 07/08/22 bisacodyl 10 mg rectal suppository 10 mg [place] DAILY PRN Constipation 07/08/22 07/08/22 clopidogrel 75 mg tablet (Plavix) 75 mg PO DAILY 07/08/22 07/08/22 docusate sodium 100 mg capsule 100 mg PO BID 07/08/22 07/08/22 empagliflozin 10 mg tablet 10 mg PO QAM 07/08/22 07/08/22 (Jardiance) furosemide 20 mg tablet (Lasix) 20 mg PO QAM 07/08/22 07/08/22 magnesium hydroxide 400 mg/5 mL 15 ml PO DAILY PRN Constipation 07/08/22 07/08/22 oral suspension (Milk of Magnesia) ondansetron HCl 4 mg tablet 4 mg PO Q4H PRN NAUSEA/VOMITING 07/08/22 07/08/22 pantoprazole 40 mg tablet,delayed 40 mg PO DAILYBB 07/08/22 07/08/22 release polyethylene glycol 3350 17 17 g PO QDL PRN Constipation 07/08/22 07/08/22 gram/dose oral powder (Miralax) sacubitril 24 mg-valsartan 26 mg 1 tab PO BID 07/08/22 07/08/22 tablet sennosides 8.6 mg-docusate sodium 1 tab-cap PO QDL PRN Constipation 07/08/22 07/08/22 50 mg tablet (Senokot-S) sodium phosphates 19 gram-7 118 ml [place] DAILY PRN Constipation 07/08/22 07/08/22 gram/118 mL enema (Fleet Enema) spironolactone 25 mg tablet 25 mg PO DAILY 07/08/22 07/08/22 umeclidinium 62.5 mcg/actuation 1 inh inhalation DAILY 07/08/22 07/08/22 blister powder for inhalation Results & Data (ED) Vital Signs Vital Signs - 24 hr 07/08/22 02:25 07/08/22 02:25 07/08/22 02:13 Temperature 36.7 C Temperature Source Oral Pulse Rate 96 H 86 Pulse Rate from SpO2 Sensor Pulse Rhythm Regular Pulse Strength Normal Respiratory Rate 28 H 26 H Respiratory Effort / Characteristics Labored Labored Short of Breath Accessory Muscle Use Short of Breath Respiratory Depth Deep Respiratory Pattern Tachypnea Rapid/Deep Blood Pressure 134/97 Blood Pressure Mean 109 Blood Pressure Position Semi-fowlers Pulse Oximetry 99 97 Oxygen Delivery Method BiPAP BiPAP Fraction of Inspired Oxygen 60 60 60 SaO2/FiO2 Ratio 165 Sepsis Recent Fever Within 48 Hours No Sepsis New/Unexplained Change in Mental Status N/A Sepsis Action Taken by Nursing No Action Required 07/08/22 02:44 07/08/22 02:58 07/08/22 03:01 Temperature Temperature Source Pulse Rate 97 H Pulse Rate from SpO2 Sensor Pulse Rhythm Pulse Strength Respiratory Rate 33 H Respiratory Effort / Characteristics Spontaneous Accessory Muscle Use Gasping/Agonal Labored Retracting Short of Breath Respiratory Depth Retractive Respiratory Pattern Rapid/Shallow Tachypnea Blood Pressure Blood Pressure Mean Blood Pressure Position Pulse Oximetry 94 94 94 Oxygen Delivery Method BiPAP BiPAP Fraction of Inspired Oxygen 40 40 SaO2/FiO2 Ratio Sepsis Recent Fever Within 48 Hours Sepsis New/Unexplained Change in Mental Status Sepsis Action Taken by Nursing 07/08/22 03:00 07/08/22 03:10 07/08/22 03:15 Temperature Temperature Source Pulse Rate 98 H 98 H 98 H Pulse Rate from SpO2 Sensor 98 H 98 H Pulse Rhythm Pulse Strength Respiratory Rate 32 H 30 H 29 H Respiratory Effort / Characteristics Respiratory Depth Respiratory Pattern Blood Pressure 144/80 H Blood Pressure Mean 101 Blood Pressure Position Pulse Oximetry 94 96 96 Oxygen Delivery Method BiPAP BiPAP BiPAP Fraction of Inspired Oxygen 40 40 40 SaO2/FiO2 Ratio Sepsis Recent Fever Within 48 Hours Sepsis New/Unexplained Change in Mental Status Sepsis Action Taken by Nursing 07/08/22 03:15 07/08/22 03:20 07/08/22 03:30 Temperature Temperature Source Pulse Rate 100 H 100 H Pulse Rate from SpO2 Sensor 100 H 100 H Pulse Rhythm Pulse Strength Respiratory Rate 29 H 29 H Respiratory Effort / Characteristics Respiratory Depth Respiratory Pattern Blood Pressure 140/75 105/78 Blood Pressure Mean 96 87 Blood Pressure Position Pulse Oximetry 97 97 Oxygen Delivery Method BiPAP BiPAP Fraction of Inspired Oxygen 40 40 SaO2/FiO2 Ratio Sepsis Recent Fever Within 48 Hours Sepsis New/Unexplained Change in Mental Status Sepsis Action Taken by Nursing 07/08/22 03:30 07/08/22 03:40 07/08/22 03:45 Temperature Temperature Source Pulse Rate Pulse Rate from SpO2 Sensor Pulse Rhythm Pulse Strength Respiratory Rate Respiratory Effort / Characteristics Respiratory Depth Respiratory Pattern Blood Pressure Blood Pressure Mean Blood Pressure Position Pulse Oximetry 98 98 96 Oxygen Delivery Method BiPAP BiPAP Fraction of Inspired Oxygen 40 40 SaO2/FiO2 Ratio Sepsis Recent Fever Within 48 Hours Sepsis New/Unexplained Change in Mental Status Sepsis Action Taken by Nursing 07/08/22 03:45 07/08/22 04:00 07/08/22 04:15 Temperature Temperature Source Pulse Rate 101 H 97 H 93 H Pulse Rate from SpO2 Sensor 101 H 97 H Pulse Rhythm Pulse Strength Respiratory Rate 33 H 31 H 28 H Respiratory Effort / Characteristics Respiratory Depth Respiratory Pattern Blood Pressure 112/89 101/57 L 100/51 L Blood Pressure Mean 96 71 67 Blood Pressure Position Pulse Oximetry 100 98 100 Oxygen Delivery Method BiPAP BiPAP BiPAP Fraction of Inspired Oxygen 40 40 40 SaO2/FiO2 Ratio Sepsis Recent Fever Within 48 Hours Sepsis New/Unexplained Change in Mental Status Sepsis Action Taken by Nursing 07/08/22 04:31 07/08/22 04:45 07/08/22 04:45 Temperature Temperature Source Pulse Rate 90 92 H 90 Pulse Rate from SpO2 Sensor Pulse Rhythm Pulse Strength Respiratory Rate 28 H 34 H Respiratory Effort / Characteristics Respiratory Depth Respiratory Pattern Blood Pressure 105/59 L 104/55 L 104/55 L Blood Pressure Mean 74 71 71 Blood Pressure Position Pulse Oximetry 100 100 99 Oxygen Delivery Method BiPAP BiPAP Fraction of Inspired Oxygen 40 40 SaO2/FiO2 Ratio Sepsis Recent Fever Within 48 Hours Sepsis New/Unexplained Change in Mental Status Sepsis Action Taken by Nursing Laboratory Data Result diagrams: 07/08/22 06:30 07/08/22 06:30 Lab Results 07/08/22 07/08/2207/08/23 Range/Units 02:15 02:24 02:24 WBC 19.27 H (4.8-10.8) K/ul RBC 3.62 L (4.63-6.08) M/uL Hgb 10.8 L (14.0-18.0) g/dl POC Hgb (14.0-18.0) g/dl Hct 34.7 L (40.1-51.0) % POC Hct (42-52) % MCV 95.9 (80.0-100.0) fL MCH 29.8 (25.0-34.0) pg MCHC 31.1 L (32.0-36.0) g/dL RDW Std Deviation 54.6 H (36.4-46.3) fL RDW Coeff of Gordon 15.5 H (11.5-14.5) % Plt Count 500 H (130-400) K/uL MPV 10.5 (9.4-12.4) fL Immature Gran % (Auto) 0.7 % Neut % (Auto) 76.8 % Lymph % (Auto) 14.2 % [place] % (Auto) 6.0 % Eos % (Auto) 1.9 % Baso % (Auto) 0.4 % Neut # (Auto) 14.82 H (1.4-6.5) K/uL Lymph # (Auto) 2.74 (1.2-3.4) K/uL [place] # (Auto) 1.15 H (0.24-0.82) K/uL Eos # (Auto) 0.36 (0-0.50) K/uL Baso # (Auto) 0.07 (0-0.2) K/uL Immature Gran # (Auto) 0.13 H (0.00-0.02) K/uL POC pH (7.35-7.45) POC pCO2 (35-46) mmHg POC pO2 (80-95) mmHg POC HCO3 (19-24) cristian/L POC Base Excess (-9-1.8) cristian/L POC ABG O2 Sat (90-95) % POC Sodium (135-144) mmol/L Sodium 135 L (136-145) mmol/L POC Potassium (3.3-5.0) mmol/L Potassium 3.5 (3.5-5.1) mmol/L POC Chloride (101-112) mmol/L Chloride 101 (98-107) mmol/L Carbon Dioxide 25 (21-32) mmol/L POC Total CO2 (24-31) mmol/L Anion Gap 9 (3-11) POC Anion Gap (16-25) mmol/L POC BUN (7-18) mg/dl BUN 15 (6-23) mg/dl Creatinine 0.75 (0.6-1.4) mg/dl POC Creatinine (0.6-1.3) mg/dl Est Cr Clr Drug Dosing 69.1 ml/min Est GFR ( Amer) 110.0 ml/min Est GFR (Non-Af Amer) 94.9 ml/min BUN/Creatinine Ratio 20.0 (10-20) Glucose 335 H* (70-99(Fasting)) mg/dl POC Glucose (other) (70-99) mg/dl Calcium 8.6 (8.5-10.1) mg/dl POC Ioniz Calcium Amee (1.12-1.32) mmol/l Total Bilirubin 1.1 H (0.2-1.0) mg/dl AST 28 (13-39) U/L ALT 38 (7-52) U/L Alkaline Phosphatase 105 H (34-104) U/L Troponin I High Sens (0-20) pg/ml Total Protein 6.8 (6.0-8.3) gm/dl Albumin 3.7 (3.4-5.0) gm/dl Globulin 3.1 (2.5-4.0) gm/dl Albumin/Globulin Ratio 1.2 (0.9-2) Procalcitonin (0-0.5) ng/ml Urine Color Urine Appearance (Clear) Urine pH (4.5-7.5) Ur Specific [place] (1.000-1.030) Urine Protein (Negative) Urine Glucose (UA) (Negative) Urine Ketones (Negative) Urine Blood (Negative) Urine Nitrite (Negative) Urine Bilirubin (Negative) Urine Urobilinogen (Negative) Ur Leukocyte Esterase (Negative) Urine WBC (Auto) (0-5) /hpf Urine RBC (Auto) (0-4) /hpf U Hyaline Cast (Auto) (0-5) /lpf U Epithel Cells (Auto) (0-5) /lpf Urine Bacteria (Auto) (Negative) Ur Renal Epithelial Cell (0-5) /lpf SARS-CoV-2 (PCR) NEGATIVE (Negative) Influenza Type A (PCR) Negative (Neg) Influenza Type B (PCR) Negative (Neg) RSV (RT-PCR) Negative (Neg) 07/08/22 07/08/22 07/08/22 Range/Units 02:24 02:25 02:28 WBC (4.8-10.8) K/ul RBC (4.63-6.08) M/uL Hgb (14.0-18.0) g/dl POC Hgb 12.2 L (14.0-18.0) g/dl Hct (40.1-51.0) % POC Hct 36 L (42-52) % MCV (80.0-100.0) fL MCH (25.0-34.0) pg MCHC (32.0-36.0) g/dL RDW Std Deviation (36.4-46.3) fL RDW Coeff of Gordon (11.5-14.5) % Plt Count (130-400) K/uL MPV (9.4-12.4) fL Immature Gran % (Auto) % Neut % (Auto) % Lymph % (Auto) % [place] % (Auto) % Eos % (Auto) % Baso % (Auto) % Neut # (Auto) (1.4-6.5) K/uL Lymph # (Auto) (1.2-3.4) K/uL [place] # (Auto) (0.24-0.82) K/uL Eos # (Auto) (0-0.50) K/uL Baso # (Auto) (0-0.2) K/uL Immature Gran # (Auto) (0.00-0.02) K/uL POC pH (7.35-7.45) POC pCO2 (35-46) mmHg POC pO2 (80-95) mmHg POC HCO3 (19-24) cristian/L POC Base Excess (-9-1.8) cristian/L POC ABG O2 Sat (90-95) % POC Sodium 134 L (135-144) mmol/L Sodium (136-145) mmol/L POC Potassium 3.8 (3.3-5.0) mmol/L Potassium (3.5-5.1) mmol/L POC Chloride 100 L (101-112) mmol/L Chloride (98-107) mmol/L Carbon Dioxide (21-32) mmol/L POC Total CO2 27 (24-31) mmol/L Anion Gap (3-11) POC Anion Gap 12.0 L (16-25) mmol/L POC BUN 17 (7-18) mg/dl BUN (6-23) mg/dl Creatinine (0.6-1.4) mg/dl POC Creatinine 0.7 (0.6-1.3) mg/dl Est Cr Clr Drug Dosing ml/min Est GFR ( Amer) ml/min Est GFR (Non-Af Amer) ml/min BUN/Creatinine Ratio (10-20) Glucose (70-99(Fasting)) mg/dl POC Glucose (other) 327 H (70-99) mg/dl Calcium (8.5-10.1) mg/dl POC Ioniz Calcium Amee 1.11 L (1.12-1.32) mmol/l Total Bilirubin (0.2-1.0) mg/dl AST (13-39) U/L ALT (7-52) U/L Alkaline Phosphatase (34-104) U/L Troponin I High Sens 37.0 H (0-20) pg/ml Total Protein (6.0-8.3) gm/dl Albumin (3.4-5.0) gm/dl Globulin (2.5-4.0) gm/dl Albumin/Globulin Ratio (0.9-2) Procalcitonin 0.05 (0-0.5) ng/ml Urine Color Urine Appearance (Clear) Urine pH (4.5-7.5) Ur Specific [place] (1.000-1.030) Urine Protein (Negative) Urine Glucose (UA) (Negative) Urine Ketones (Negative) Urine Blood (Negative) Urine Nitrite (Negative) Urine Bilirubin (Negative) Urine Urobilinogen (Negative) Ur Leukocyte Esterase (Negative) Urine WBC (Auto) (0-5) /hpf Urine RBC (Auto) (0-4) /hpf U Hyaline Cast (Auto) (0-5) /lpf U Epithel Cells (Auto) (0-5) /lpf Urine Bacteria (Auto) (Negative) Ur Renal Epithelial Cell (0-5) /lpf SARS-CoV-2 (PCR) (Negative) Influenza Type A (PCR) (Neg) Influenza Type B (PCR) (Neg) RSV (RT-PCR) (Neg) 07/08/22 07/08/22 07/08/22 Range/Units 02:49 03:10 03:38 WBC (4.8-10.8) K/ul RBC (4.63-6.08) M/uL Hgb (14.0-18.0) g/dl POC Hgb 11.6 L 11.9 L (14.0-18.0) g/dl Hct (40.1-51.0) % POC Hct 34 L 35 L (42-52) % MCV (80.0-100.0) fL MCH (25.0-34.0) pg MCHC (32.0-36.0) g/dL RDW Std Deviation (36.4-46.3) fL RDW Coeff of Gordon (11.5-14.5) % Plt Count (130-400) K/uL MPV (9.4-12.4) fL Immature Gran % (Auto) % Neut % (Auto) % Lymph % (Auto) % [place] % (Auto) % Eos % (Auto) % Baso % (Auto) % Neut # (Auto) (1.4-6.5) K/uL Lymph # (Auto) (1.2-3.4) K/uL [place] # (Auto) (0.24-0.82) K/uL Eos # (Auto) (0-0.50) K/uL Baso # (Auto) (0-0.2) K/uL Immature Gran # (Auto) (0.00-0.02) K/uL POC pH 7.16 L* 7.23 L (7.35-7.45) POC pCO2 71 H 62 H (35-46) mmHg POC pO2 95 106 H (80-95) mmHg POC HCO3 25 H 26 H (19-24) cristian/L POC Base Excess -3.0 -2.0 (-9-1.8) cristian/L POC ABG O2 Sat 94.0 97.0 H (90-95) % POC Sodium 134 L 136 (135-144) mmol/L Sodium (136-145) mmol/L POC Potassium 3.4 3.2 L (3.3-5.0) mmol/L Potassium (3.5-5.1) mmol/L POC Chloride (101-112) mmol/L Chloride (98-107) mmol/L Carbon Dioxide (21-32) mmol/L POC Total CO2 27 28 (24-31) mmol/L Anion Gap (3-11) POC Anion Gap (16-25) mmol/L POC BUN (7-18) mg/dl BUN (6-23) mg/dl Creatinine (0.6-1.4) mg/dl POC Creatinine (0.6-1.3) mg/dl Est Cr Clr Drug Dosing ml/min Est GFR ( Amer) ml/min Est GFR (Non-Af Amer) ml/min BUN/Creatinine Ratio (10-20) Glucose (70-99(Fasting)) mg/dl POC Glucose (other) (70-99) mg/dl Calcium (8.5-10.1) mg/dl POC Ioniz Calcium Amee (1.12-1.32) mmol/l Total Bilirubin (0.2-1.0) mg/dl AST (13-39) U/L ALT (7-52) U/L Alkaline Phosphatase (34-104) U/L Troponin I High Sens (0-20) pg/ml Total Protein (6.0-8.3) gm/dl Albumin (3.4-5.0) gm/dl Globulin (2.5-4.0) gm/dl Albumin/Globulin Ratio (0.9-2) Procalcitonin (0-0.5) ng/ml Urine Color Yellow Urine Appearance Clear (Clear) Urine pH 5.5 (4.5-7.5) Ur Specific [place] 1.028 (1.000-1.030) Urine Protein Trace H (Negative) Urine Glucose (UA) 3+ H (Negative) Urine Ketones Negative (Negative) Urine Blood Negative (Negative) Urine Nitrite Negative (Negative) Urine Bilirubin Negative (Negative) Urine Urobilinogen Negative (Negative) Ur Leukocyte Esterase Negative (Negative) Urine WBC (Auto) 1-5 (0-5) /hpf Urine RBC (Auto) 0-4 (0-4) /hpf U Hyaline Cast (Auto) 5-10 H (0-5) /lpf U Epithel Cells (Auto) >30 H (0-5) /lpf Urine Bacteria (Auto) Negative (Negative) Ur Renal Epithelial Cell 0-5 (0-5) /lpf SARS-CoV-2 (PCR) (Negative) Influenza Type A (PCR) (Neg) Influenza Type B (PCR) (Neg) RSV (RT-PCR) (Neg) Administered Medications Amiodarone HCl (Amiodarone 200 Mg Tab) 200 mg PO DAILY [facility] Stop: 08/07/22 08:59 Last Admin: 07/08/22 09:53 Dose: 200 mg Documented By: DEREJE Apixaban (Apixaban 5 Mg Tablet) 5 mg PO BID [facility] Stop: 08/07/22 08:59 Last Admin: 07/08/22 09:53 Dose: 5 mg Documented By: DEREJE Atorvastatin Calcium (Atorvastatin 40 Mg Tab) 80 mg PO DAILY [facility] Stop: 08/07/22 08:59 Last Admin: 07/08/22 09:53 Dose: 80 mg Documented By: DEREJE Clopidogrel Bisulfate (Clopidogrel Bisulfate 75 Mg Tab) 75 mg PO DAILY [facility] Stop: 08/07/22 08:59 Last Admin: 07/08/22 09:53 Dose: 75 mg Documented By: DEREJE Docusate Sodium (Docusate Sodium 100 Mg Cap) 100 mg PO BID [facility] Stop: 08/07/22 08:59 Last Admin: 07/08/22 09:53 Dose: 100 mg Documented By: DEREJE Doxycycline Hyclate (Doxycycline Hyclate 100 Mg Cap) 100 mg PO BID [facility] Stop: 07/15/22 06:59 Last Admin: 07/08/22 08:30 Dose: 100 mg Documented By: DEREJE Magnesium Sulfate/Dextrose (Magnesium Sulfate / D5w) 1 gm in 100 mls @ 50 mls/hr IV Q2H [facility] Stop: 07/08/22 20:14 Last Admin: 07/08/22 18:28 Dose: 50 mls/hr Documented By: Infusion: 07/08/22 18:28 Dose: 50 mls/hr Documented By: Admin: 07/08/22 16:51 Dose: 50 mls/hr Documented By: JORDIN Cefepime HCl 2,000 mg/ Syringe 20 mls @ 5 mls/min IV Q8H [facility]; Protocol Stop: 07/10/22 16:59 Last Admin: 07/08/22 17:36 Dose: 5 mls/min Documented By: JORDIN Insulin Aspart (Insulin Aspart Per Unit) 0 units SC ACHS [facility] Stop: 08/07/22 16:29 Last Admin: 07/08/22 15:42 Dose: Not Given Documented By: JORDIN Co-signed By: LINCOLN Ipratropium [place] (Ipratropium [place] Neb Soln 0.02% 2.5 Ml Vial) 0.5 mg INH Q6R [facility] Stop: 08/07/22 06:59 Last Admin: 07/08/22 13:22 Dose: 0.5 mg Documented By: Admin: 07/08/22 07:05 Dose: 0.5 mg Documented By: BRENDA Levalbuterol HCl (Levalbuterol 1.25mg/0.5ml Neb) 1.25 mg INH Q6R [facility] Stop: 08/07/22 06:59 Last Admin: 07/08/22 13:26 Dose: 1.25 mg Documented By: Admin: 07/08/22 07:05 Dose: 1.25 mg Documented By: BRENDA Pantoprazole Sodium (Pantoprazole 40 Mg Tab) 40 mg PO DAILYBB [facility] Stop: 08/07/22 06:29 Last Admin: 07/08/22 08:30 Dose: 40 mg Documented By: DEREJE Umeclidinium [place] (Umeclidinium [place] 62.5mcg/Blister 7 Puffs/Inhaler) 1 puffs INH DAILY [facility] Stop: 08/07/22 08:59 Last Admin: 07/08/22 09:54 Dose: 1 puffs Documented By: DEREJE Discontinued Medications Dextrose (Dextrose 50% 50 Ml Syringe) 50 ml IV NOW STA Stop: 07/08/22 07:19 Last Admin: 07/08/22 07:34 Dose: 25 ml Documented By: DEREJE Furosemide (Furosemide 40 Mg/4 Ml Vial) 40 mg IV ONE ONE Stop: 07/08/22 03:02 Last Admin: 07/08/22 03:09 Dose: 40 mg Documented By: RULA Ceftriaxone Sodium 1,000 mg/ (Dextrose) 50 mls @ 100 mls/hr IV Q24H [facility]; Protocol Stop: 07/15/22 06:11 Last Infusion: 07/08/22 09:42 Dose: 0 mls/hr Documented By: Admin: 07/08/22 08:11 Dose: 100 mls/hr Documented By: DEREJE Methylprednisolone 40 mg/ (Syringe) 0.64 mls @ 1.5 mls/min IV Q8H [facility] Stop: 08/07/22 10:59 Last Admin: 07/08/22 11:11 Dose: 1.5 mls/min Documented By: TESS Sodium Chloride (Nss 1000ml) 250 mls @ 500 mls/hr IV .Q30M [facility]AN[facility] Stop: 07/08/22 07:14 Last Infusion: 07/08/22 07:17 Dose: 0 mls/hr Documented By: Admin: 07/08/22 06:44 Dose: 500 mls/hr Documented By: RULA Insulin Aspart (Insulin Aspart Per Unit) 0 units SC Q6 FRANCOIS Stop: 08/07/22 07:59 Last Admin: 07/08/22 12:18 Dose: Not Given Documented By: Admin: 07/08/22 08:15 Dose: Not Given Documented By: DEREJE Co-signed By: NOAH Insulin Human Regular (Novolin-R Insulin Per Unit Charge) 6 units IV NOW STA Stop: 07/08/22 05:09 Last Admin: 07/08/22 05:22 Dose: Not Given Documented By: FRAN Insulin Human Regular (Novolin-R Insulin Per Unit Charge) 5 units IV NOW STA Stop: 07/08/22 05:12 Last Admin: 07/08/22 05:51 Dose: 5 units Documented By: RULA Co-signed By: ANTELMO Methylprednisolone (Methylprednisolone 125 Mg/2 Ml Vial) 125 mg IV NOW STA Stop: 07/08/22 03:02 Last Admin: 07/08/22 03:09 Dose: 125 mg Documented By: RULA Nitroglycerin (Nitroglycerin 2% Ointment 30gm Tube) 0.5 inch EXT Q6H [facility] Stop: 08/07/22 06:11 Last Admin: 07/08/22 07:17 Dose: Not Given Documented By: DEREJE Potassium Chloride (Potassium Chloride 20 Meq/15 Ml Udc) 40 meq PO NOW STA Stop: 07/08/22 05:11 Last Admin: 07/08/22 09:21 Dose: Not Given Documented By: DEREJE Potassium Chloride (Potassium Chloride 20 Meq/15 Ml Udc) 20 meq PO NOW STA Stop: 07/08/22 08:10 Last Admin: 07/08/22 10:06 Dose: 20 meq Documented By: DEREJE Imaging Data Radiologist's Impression: Chest X-Ray 07/08/22 02:22 XR chest 1V portable CLINICAL HISTORY: Dyspnea. COMPARISON STUDY: Chest radiograph May 31, 2022. Chest CT September 26, 2017. FINDINGS: There is no pneumothorax. Right upper chest wall/axilla surgical clips are noted. There is mild cardiomegaly. There are small bilateral pleural effusions. Underlying emphysema is better depicted on prior chest CT. Interstitial thickening and patchy opacities are noted. Suspected scarring within the lungs with adjacent airspace opacity. This is better depicted on subsequent chest CT. IMPRESSION: 1. Interstitial pulmonary edema with small bilateral pleural effusions. 2. Patchy bilateral airspace opacities which could reflect a superimposed infectious process or alveolar edema. Radiographic follow up to ensure resolution is recommended. 3. Emphysema. ACT 112: Negative or not required by law. Electronically signed by: Oc Huggins M.D. 07/08/2022 9:04 AM Discharge Plan Visit Data Chief Complaint: Shortness of Breath/Dyspnea ED Provider: Niurka Yang Discharge Problem: Respiratory failure with hypoxia and hypercapnia, Pulmonary edema, Elevated troponin, Uncontrolled diabetes mellitus with hyperglycemia Patient Disposition: Admitted As Inpatient Discharge Instructions Interventions: ED Discharge Assessment Last Done: 07/08/22 06:17 : Respiratory failure with hypoxia and hypercapnia Qualifiers: Chronicity: acute Qualified Code(s): J96.01 - Acute respiratory failure with hypoxia Pulmonary edema Qualifiers: Chronicity: acute Qualified Code(s): J81.0 - Acute pulmonary edema Uncontrolled diabetes mellitus with hyperglycemia Qualifiers: Diabetes mellitus type: type 2 Qualified Code(s): E11.65 - Type 2 diabetes katherine litus with hyperglycemia
[2022-07-08] MEDS ORDERED: methylPREDNISolone 125 MG/2 ML VIAL IV STA (03:01)
[2022-07-08] MEDS ORDERED: FUROSEMIDE 40 MG/4 ML VIAL IV ONE (03:01)
[2022-07-08 03:03] LABS: iSTAT Arterial Blood Gas HCO3 25 meg/L (19-24); iSTAT Arterial Blood Gas pCO2 71 mmHg (35-46); iSTAT Arterial Blood Gas pH 7.16 (7.35-7.45); iSTAT Arterial Blood Gas pO2 95 mmHg (80-95); iSTAT Carbon Dioxide 27 mmol/L (24-31); iSTAT Hematocrit 34 % (42-52); iSTAT Hemoglobin 11.6 g/dl (14.0-18.0); iSTAT Potassium 3.4 mmol/L (3.3-5.0); iSTAT Sodium 134 mmol/L (135-144)
[2022-07-08 03:13] LABS: Albumin Globulin Ratio 1.2 (0.9-2); Albumin Level 3.7 gm/dl (3.4-5.0); Bilirubin,Total 1.1 mg/dl (0.2-1.0); Calcium 8.6 mg/dl (8.5-10.1); Creatinine Clr Calc Pharmacy 69.1 ml/min; Est GFR (Non-African American) 94.9 ml/min; Globulin 3.1 gm/dl (2.5-4.0); Potassium 3.5 mmol/L (3.5-5.1); Total Protein 6.8 gm/dl (6.0-8.3)
[2022-07-08 03:28] LABS: Appearance Urine Clear (Clear); Bacteria Urine Automated Negative (Negative); Bilirubin Urine Negative (Negative); Blood Urine Negative (Negative); Color Urine Yellow; Epithelial Cell Urine Auto >30 /lpf (0-5); Glucose Urine UA 3+ (Negative); Ketones Urine Negative (Negative); Leukocyte Esterase Urine Negative (Negative); Nitrite Urine Negative (Negative); Protein Urine Trace (Negative); RBC Urine Automated 0-4 /hpf (0-4); Specific Gravity Urine 1.028 (1.000-1.030); Urobilinogen Urine Negative (Negative); pH Urine 5.5 (4.5-7.5)
[2022-07-08 03:34] LABS: Influenza A virus by PCR Negative (Neg); Influenza B virus by PCR Negative (Neg); RSV by PCR Negative (Neg); SARS CoV2 RNA(COVID-19) Ceph NEGATIVE (Negative)
[2022-07-08 03:48] LABS: Renal Epithelial Cells Urine 0-5 /lpf (0-5)
[2022-07-08 03:52] LABS: iSTAT Arterial Blood Gas HCO3 26 meg/L (19-24); iSTAT Arterial Blood Gas pCO2 62 mmHg (35-46); iSTAT Arterial Blood Gas pH 7.23 (7.35-7.45); iSTAT Arterial Blood Gas pO2 106 mmHg (80-95); iSTAT Carbon Dioxide 28 mmol/L (24-31); iSTAT Hematocrit 35 % (42-52); iSTAT Hemoglobin 11.9 g/dl (14.0-18.0); iSTAT Potassium 3.2 mmol/L (3.3-5.0); iSTAT Sodium 136 mmol/L (135-144)
[2022-07-08] MEDS ORDERED: NovoLIN-R INSULIN PER UNIT CHARGE IV STA ×2 (05:08→05:11)
[2022-07-08] MEDS ORDERED: POTASSIUM CHLORIDE 20 MEQ/15 ML UDC PO STA ×2 (05:10→08:09)
[2022-07-08] MEDS ORDERED: GLUCAGON FOR INJ 1 MG VIAL SQ PRN (06:12)
[2022-07-08] MEDS ORDERED: SOD PHOSPHATE/SOD BIPHOSPHATE ENEMA 132 ML BTL PR PRN (06:12)
[2022-07-08] MEDS ORDERED: DOCUSATE SODIUM/SENNA 50/8.6MG TAB PO PRN (06:12)
[2022-07-08] MEDS ORDERED: ACETAMINOPHEN 325 MG TAB PO PRN (06:12)
[2022-07-08] MEDS ORDERED: GLUCOSE 10 TAB/TUBE PO PRN (06:12)
[2022-07-08] MEDS ORDERED: CARBOHYDRATES FOR HYPOGLYCEMIA PO PRN (06:12)
[2022-07-08] MEDS ORDERED: bisacodyL 10 MG SUPP PR PRN (06:12)
[2022-07-08] MEDS ORDERED: ALBUTEROL HFA 8 GM INHALER INH PRN (06:12)
[2022-07-08] MEDS ORDERED: PHARMACY GLYCEMIC MGMT CONSULT PRN (06:12)
[2022-07-08] MEDS ORDERED: POLYETHYLENE (MIRALAX) 17 GM PACK PO PRN ×2 (06:12)
[2022-07-08] MEDS ORDERED: DEXTROSE 50% 50 ML SYRINGE IV PRN (06:12)
[2022-07-08] MEDS ORDERED: NITROGLYCERIN SL 0.4 MG/TAB TAB SL PRN (06:12)
[2022-07-08] MEDS ORDERED: LEVALBUTEROL 1.25MG/0.5ML NEB NEB PRN (06:12)
[2022-07-08] MEDS ORDERED: GLUCOSE 40% GEL 15 GM TUBE PO PRN (06:12)
[2022-07-08] MEDS ORDERED: NITROGLYCERIN 2% OINTMENT 30GM TUBE EXT SCH (06:12)
[2022-07-08] MEDS ORDERED: SODIUM CHLORIDE 0.9% 500 ML IV SCH (06:15)
[2022-07-08] MEDS ORDERED: ONDANSETRON 4 MG OD TAB PO PRN (06:29)
[2022-07-08 06:44] LABS: Base Excess ABG 3.2 mEq/L (-9-1.8); HCO3 ABG 28 mmol/L (19-24); Oxygen Saturation ABG 99.7 % (90-95); PCO2 ABG 42 mmHg (35-46); PO2 ABG 154 mmHg (80-95); pH ABG 7.43 (7.35-7.45)
[2022-07-08] MEDS ORDERED: SODIUM CHLORIDE 0.9% 1000ML 250 ML IV SCH (06:45)
[2022-07-08 06:46] LABS: Allen Test Pos (Pos)
[2022-07-08 06:47] LABS: Hemoglobin 9.9 g/dl (14.0-18.0); Mean Corpuscular Hemoglobin 30.7 pg (25.0-34.0); Mean Corpuscular Volume 93.2 fL (80.0-100.0); Mean Platelet Volume 10.2 fL (9.4-12.4); Platelet Count 300 K/uL (130-400); RDW Coefficient of Variation 15.4 % (11.5-14.5); RDW Standard Deviation 52.6 fL (36.4-46.3); Red Blood Count 3.22 M/uL (4.63-6.08)
[2022-07-08] MEDS ORDERED: XOPENEX/ATROVENT 1.25mg/0.5MG NEB COMBO NEB SCH (07:00)
[2022-07-08] MEDS ORDERED: cefTRIAXone SODIUM 1,000 MG in DEXTROSE 5% AD-VAN 50 ML IV SCH (07:00)
[2022-07-08] MEDS: IPRATROPIUM BROMIDE NEB SOLN 0.02% 2.5 ML VIAL INH SCH ×3 (07:05→19:40)
[2022-07-08] MEDS: LEVALBUTEROL 1.25MG/0.5ML NEB INH SCH ×3 (07:05→19:40)
[2022-07-08 07:07] LABS: Basophils # (auto) 0.03 K/uL (0-0.2); Basophils % (auto) 0.2 %; Immature Granulocytes # (auto) 0.08 K/uL (0.00-0.02); Immature Granulocytes % (auto) 0.5 %; Lymphocytes # (auto) 0.29 K/uL (1.2-3.4); Lymphocytes % (auto) 1.8 %; Monocytes # (auto) 0.29 K/uL (0.24-0.82); Monocytes % (auto) 1.8 %; Neutrophils # (auto) 15.71 K/uL (1.4-6.5); Neutrophils % (auto) 95.7 %; Polychromasia 1+
[2022-07-08 07:18] LABS: BUN Creatinine Ratio 23.3 (10-20); Calcium 8.1 mg/dl (8.5-10.1); Est GFR (African American) 111.2 ml/min; Magnesium 1.8 mg/dl (1.7-2.4); Potassium 3.3 mmol/L (3.5-5.1); Troponin I High Sensitivity 50.3 pg/ml (0-20)
[2022-07-08] MEDS ORDERED: DEXTROSE 50% 50 ML SYRINGE IV STA (07:18)
--- NOTE | 2022-07-08 07:40 | CT Scan Report ---
CT chest diagnostic wo con CT DOSE: 264.06 mGy.cm HISTORY: Congestive heart failure. Pneumonia. Shortness of breath. TECHNIQUE: Multiaxial CT images of the chest were performed without contrast. A dose lowering techni que was utilized adhering to the principles of ALARA. COMPARISON: Chest CT 09/26/2017. FINDINGS: Limited views of the upper abdomen demonstrate normal liver, spleen, and adrenal glands. Th ere are small bilateral pleural effusions. No significant mediastinal or hilar lymphadenopathy. Exten sive calcified plaque within the coronary arteries and normal caliber thoracic aorta. The heart is no rmal in size. No pericardial effusion. There is abnormal soft tissue within the right axilla/subpecto ral location with surrounding surgical clips which measures approximately 5.7 x 4.8 cm. There appears be a partially calcified vessel traversing this soft tissue abnormality. No left axillary lymphadeno alexander. No acute fractures identified. No suspicious lytic or blastic osseous lesions. Mild emphysema. No pneumothorax. There is respiratory motion artifact. Trace mucoid material within the trachea and right mainstem bronchus. Patchy densities within the base of the right lower lobe with mild interlobu lar septal thickening.. Multifocal scarring again noted within the superior segment of the right lowe r lobe and right upper lobe. This remains unchanged. Mild interlobular septal thickening with patchy groundglass small consolidative densities seen within the left upper to midlung zone. IMPRESSION: 1. Abnormal soft tissue within the right subpectoral/axillary location with surrounding surgical clip s which measures 5.7 x 4.8 cm. A neoplastic process would be the diagnosis of exclusion. 2. Emphysema and chronic scarring within the right lung again noted. 3. Interlobular septal thickening with patchy multifocal groundglass and consolidative airspace opaci ties as described above. This favors a mild multifocal pneumonia. 4. Small bilateral pleural effusions. ACT 112: Negative or not required by law. Electronically signed by: Burak Santacruz M.D. 07/08/2022 7:38 AM
[2022-07-08 07:52] LABS: Estimated Average Glucose 105 mg/dl; Hemoglobin A1C 5.3 % (4.5-5.6)
--- NOTE | 2022-07-08 07:59 | History and Physical Report ---
DATE OF ADMISSION: 07/08/2022 CHIEF COMPLAINT: Shortness of breath. HISTORY OF PRESENT ILLNESS: This is a 66-year-old male with past medical history significant for alcohol abuse, history of tobacco abuse, history of non- ST elevated SC, history of CHF, hypertension, shock liver, chest wall hematoma presents with complaints of shortness of breath. Currently, for CHF he is placed on nitro drip and also received a dose of Lasix and is on BiPAP. He seems comfortable, saturating fine. The patient was admitted to our hospital on 05/31/2022 with acute respiratory failure, non-ST elevated SC, cardiogenic shock, CHF, EF around 25% and COPD exacerbation. He was hypoxic at that time at 70% and improved on BiPAP. At that time, his white count was 19,000 and lactate was 9.9. Troponin was 15,000. EKG showed ST depression in lateral leads and showed 20-25% EF. Heart alert was called. Urgent cardiac catheterization was done, which revealed severe multivessel coronary artery disease with severely calcified and occluded left circumflex at [facility] and was transferred to [facility]. It looks like he stayed in [facility] for whole June and in [facility] he was placed on intraaortic balloon pump. IABP was later upgraded to Impella( IABP seemed to have broken), underwent multivessel PCI, complicated by hemorrhagic shock and cardiogenic shock, intubated for pulmonary edema, looks like intubated for many days. Diagnosed and treated empirically for pneumonia. Ultimately extubated and Impella removed. He was found to have new onset AFib during the course and currently on amiodarone and Eliquis, and he was discharged to [facility] on 07/02/2022 and now he comes back with shortness of breath. The patient is ambulating sometimes with cane and sometime without cane. He is eating okay. Denies any chest pain or cough. Denies any fevers. Denies any nausea, denies any abdominal pain. His bowel and bladder are moving okay. ALLERGIES: ZOSYN RASH(as per EPIC). PAST MEDICAL HISTORY: As mentioned above. PAST SURGICAL HISTORY: Cardiac catheterization, colonoscopy, EGD, intraaortic balloon pump placement. MEDICATIONS: Currently the patient is on Tylenol 325 mg p.o. q. 4 hours p.r.n., albuterol 2 puffs inhalation q. 4 hours p.r.n., albuterol 2puff qid.,, amiodarone 200 mg p.o. daily, Eliquis 5 mg p.o. b.i.d., atorvastatin 80 mg p.o. daily, bisacodyl 10 mg p.o. daily p.r.n., Plavix 75 mg p.o. daily, Colace 100 mg p.o. b.i.d., Jardiance 10 mg p.o. a.m., Lasix 20 mg p.o. a.m., milk of magnesia 15 mL daily p.r.n., Zofran 4 mg p.o. q. 4 hours p.r.n., Protonix 40 mg p.o. daily, MiraLax 17 grams p.o. daily p.r.n., Entresto 1 tablet p.o. b.i.d., Senokot-S 1 tablet p.o. daily p.r.n. Fleet enema p.r.n., spironolactone 25 mg p.o. daily, umeclidinium 1 inhalation daily. FAMILY HISTORY: Significant for brother had leukemia. Father had lung cancer. Mother had hypertension. SOCIAL HISTORY: Single. Quit smoking in 2016. Smoked 1 pack a day for 40 years, 5 drinks of alcohol per week. No drug use. REVIEW OF SYSTEMS: As per HPI. Rest of review of systems is negative. PHYSICAL EXAMINATION: GENERAL: The patient is somewhat thin and frail, currently not in acute distress, on BiPAP. VITAL SIGNS: Temperature 36.7, pulse 92, respiratory rate 20, blood pressure 104/55, oxygen 100%, 40% BiPAP. HEENT: Pupils equal, round and reactive to light. No facial droop. NECK: No neck masses seen. CARDIOVASCULAR: S1 and S2 heard. Regular rate and rhythm. No murmur, no gallop. RESPIRATORY SYSTEM: Normal AP diameter. No accessory muscle use. Mild bibasilar wheezing and crackles heard. ABDOMEN: Soft, bowel sounds present, nontender, no distention. CENTRAL NERVOUS SYSTEM: Alert and awake, somewhat hard of hearing. No facial droop. Speech is okay. Insight is okay. Obeys simple commands. Moves extremities. EXTREMITIES: No obvious edema or erythema seen. LABORATORY DATA: WBC 19, hemoglobin 10.8, hematocrit 34.7, platelets 500. Point of care pH of 7.23, pCO2 62, pO2 of 106, bicarb 26. Sodium 135, potassium 3.5, chloride 101, CO2 25, BUN 15, creatinine 0.7, serum glucose 335, calcium 8.6, ionized calcium 1.1, total bilirubin 1.1, AST 28, ALT 38, alkaline phosphatase 105. Troponin I high sensitivity 37. Urinalysis negative. SARS-CoV-2 PCR negative. Influenza PCR negative. RSV PCR negative. IMAGING DATA: Chest x-ray showed bilateral pulmonary congestion, pulmonary edema. ASSESSMENT AND PLAN: This is a 66-year-old male who presents with acute shortness of breath. 1. Acute respiratory failure, most likely secondary to [id number] systolic CHF, last echo was in last admission with 20-25% EF. Received a dose of Lasix IV 40 in the ER. We will continue IV Lasix 40 b.i.d. Continue Entresto. Continue his spironolactone. Daily weights, I's and O's. Follow repeat echo. Patient is on nitro drip in the ER. We will place him on nitro paste for now if the blood pressure tolerates. Closely monitor in the tele floor. We will try to wean off the BiPAP. Consult Cardiology for further recommendations. 2. Possible mild chronic obstructive pulmonary disease exacerbation. The patient has also history of chronic obstructive pulmonary disease. We will get a CT chest to look for any underlying pneumonia as the patient has leukocytosis. Empirically treating for chronic obstructive pulmonary disease exacerbation with IV Solu-Medrol, nebs around the clock and p.r.n., and doxycycline for now. We will repeat ABG. 3. Diabetes. Sugars are running high. We will hold Jardiance. We will give one dose of IV insulin. Place on Lantus insulin sliding scale. Follow the blood sugars while the patient is on insulin. We will consult pharmacy. 4. Atrial fibrillation, was diagnosed in last admission to [facility], on amiodarone and Eliquis, which we will continue. 5. History of multivessel coronary artery disease. As per discharge from [facility], status post multivessel PCI, on Plavix and statin. Follow the echocardiogram. 6. Mild elevation of troponin, mostly demand ischemia. Follow repeat enzymes. 7. Hypertension: On Entresto. We will monitor blood pressure. 8. Gastroesophageal reflux disease: On Protonix. 9. Deep venous thrombosis prophylaxis: On Eliquis. 10. History of tobacco abuse and history of alcohol abuse. Addendum: His SBP dropped to 80's. Nitro drip was stopped at 4:30am.Got 250cc fluid bolus and held diuretics and BP meds. Blood sugar 30's in am lab. received iv dextrose.Latest BP 91/54. ABG ok. Tapered off of bipap. Resting comfortably says doing fine. Since his BP is low and may need lasix with acute chf d/w Critical care and transferred to ICU for close monitoring. Appreciate critical care help. DISPOSITION: Closely monitor in ICU. Level 1 full code. PT/OT. Social service to help with discharge planning. Job ID: [id number]
[2022-07-08] MEDS ORDERED: STAT IV Infusion **Titration per Protocol STA (08:06)
[2022-07-08] MEDS: INSULIN ASPART PER UNIT SC SCH ×4 (08:15→20:39)
[2022-07-08] MEDS: DOXYCYCLINE HYCLATE 100 MG CAP PO SCH ×2 (08:30→20:33)
[2022-07-08] MEDS: PANTOprazole 40 MG TAB PO SCH (08:30)
--- NOTE | 2022-07-08 08:46 | Cardiology Consultation ---
Date of Consultation July 08, 2022 Assessment & Plan (1) Acute heart failure with reduced ejection fraction and diastolic dysfunction: (2) Acute respiratory failure with hypoxia: (3) Lung mass: (4) CAD (coronary artery disease): (5) Pneumonia: Plan Patient with recent extensive hospitalization at [facility], discharged 07/02 after multivessel CAD s/p multivessel intervention/PCI, cardiogenic shock requiring pressors, mechanical ventilation, IAPB and Impella device complicated also by multifocal pneumonia/sepsis. Patient had been doing better at rehab when he developed acute respiratory distress with hypoxia. Symptoms improving on admission after IV diuretics, nebulizers, antibiotics possible pneumonia and lung mass noted on chest CT. Troponin only minimally elevated. he has no symptoms to suggest ACS. EKG without acute changes on admission. Repeat pending. Echo pending. Continue plavix given recent coronary interventions. Continue eliquis. Continue amiodarone for now. Need to consider amio toxicity with recent worsening of his pulmonary and respiratory status? However it seems patient had abnormal chest Ct at [facility] prior to amiodarone. Consider transitioning to metoprolol. Continue atorvastatin Entresto on hold due to hypotension. Continue furosemide 40 mg IV as BP allows. Monitor I+O's Supplement Potassium. Case discussed with Dr. Fontaine. Will follow. Supervising Physician Co-Signing Physician Notes 66-year-old patient mated with respiratory insufficiency. Diagnosed with acute on chronic heart failure with reduced ejection fraction multifocal pneumonia. Seen examined at the bedside. No conversational dyspnea. Oxygen saturation 95% on 3 L. Denies chest pain, weight gain, or edema. Repeat echocardiogram demonstrating improved LV systolic function. PE: Hypotensive, General: Chronically ill, no acute distress. Heart: Regular rhythm, normal S1-S2. No murmur. Lungs: Bilateral crackles at the bases. No wheeze. Extremities: No edema. A/P: Agree with above PA-C history, physical exam, assessment and plan. Continue IV furosemide x24 hours to maintain negative fluid balance. Hold spironolactone and Entresto due to hypotension. Continue Eliquis and clopidogrel secondary to recent intervention. Results of echocardiogram reviewed demonstrating improved LV systolic function. Moderate mitral regurgitation unchanged. Cardiology will continue to follow during hospitalization. Thank you for allow me to participate in care of your patient. History of Present Illness Reason for Consultation: acute respiratory failure; CHF; CAD Requesting Physician: Dr. Caicedo Attending Physician: Dr. Fontaine History of Present Illness Patient is a complex 66 year old male History includes: 1. Recent admission to [facility] for NSTEMI diagnosed with multivessel CAD in May 2022. Transferred to [facility] and extended hospitalization requiring IABP and transitioned then to Impella device. CABG considered but due to comorbidities, multivessel PCI performed as below. 2.Cath report 06/10/22: Severe ak chin CAD with cardiogenic shock, likely ischemic MR. Critically ill on pressor and Impella. * Ostial LCx 100% stenosis, multiple lesions in the proximal LCx which is severely calcified; Ostial LAD has 90% stenosis followed by multiple tandem lesions in the proximal to mid LAD with up 80% calcified stenosis. We attempted to wire the LCx which easily crossed the lesion, angiography showed diffuse calcified proximal LCx disease. We felt LCx to be culprit lesion for the clinical presentation. We proceeded to treat LCx and LAD in the following fashion. * LAD s/p multiple NC balloons and IVL shockwave with 2.5 x 12 mm shockwave balloon. We the placed two overlapping ALINE stent: 2.25 x 24 mm and 2.25 x 8 mm Synergy ALINE in the proximal to mid LAD. Post dilated with 2.5 NC balloon. Excellent angiographic result. * Proximal LCx treated with Rota ablation using 1.25 mm ban at 195, 000 RPM for 4 runs. Followed by NC balloon treatment. * We the performed stent of the LMCA-LAD and LCx using the DK crush technique: Placed a 2.5 x 20 mm Synergy ALINE in the LCx (extending few millimeters into the LMCA). Followed by crushing stent with 3.0 x 15 mm compliant balloon. We then placed a 3.0 x 20 mm Synergy ALINE extending from the ostial LMCA into the proximal LAD extending the previously placed LAD stent. We did final kissing ballloon inflation with 3.0 mm NC balloon in the LCx and LAD. * Final angiogram showed excellent result with 0% residual stenosis, a good step-up and step-down, JANA III flow and no evidence of dissection or perforation. * We performed angiogram of the RCA after completion of the left system stenting and noted the lesion to be COSMETIC CHEMIST with well developed collaterals from the Left system. Of note there was significant hemodynamic effect with occlusion of the LCx>LAD during balloon inflation indicating the LCx to be the culprit and likely responsible for clinical deterioration. 3. Cath complicated by cardiogenic shock and intubated. 4. Treated for hospital acquired pneumonia and found to have multifocal pneumonia with possible right upper lobe cavitary lesion also noted. 5. Echo post coronary interventions demonstrated LVEF 30-35% 6. He also developed PAF with RVR during admission. started on Eliquis, amiodarone. Patient was discharged from [facility] on 07/02 after 1 month stay. He was sent to [facility] where he was recovering and regaining his strength. Unfortunately last night patient developed acute respiratory distress, hypoxia. Came to ER for evaluation. started on antibiotics and IV lasix. No chest pain reported. Troponin not significant elevated. No Acute EKG changes, but poor tracing. repeat requested. Abnormal Chest Ct reported with pneumonia and unspecified lung mass? Att time of evaluation this morning, patient remains on oxymask, but oxygen requirements have improved. He reports feeling better. Still has productive cough. No chest pain. No dizziness or lightheadedness. Allergies Allergy/AdvReac Type Severity Reaction Status Date / Time piperacillin [From Zosyn] Allergy Unknown ON Verified 07/08/22 02:26 [facility] LIST tazobactam [From Zosyn] Allergy Unknown ON Verified 07/08/22 02:26 [facility] Home Medications Medication Instructions Recorded Confirmed Type acetaminophen 325 mg tablet 325 mg PO Q4H PRN Pain 07/08/22 07/08/22 History (Tylenol) albuterol sulfate 90 mcg/actuation 2 puff inhalation Q4H PRN 07/08/22 07/08/22 History aerosol inhaler Shortness Of Breath Or Wheezing albuterol sulfate 90 mcg/actuation 2 puff inhalation QID 07/08/22 07/08/22 Hist ory aerosol inhaler amiodarone 200 mg tablet 200 mg PO DAILY 07/08/22 07/08/22 History apixaban 5 mg tablet (Eliquis) 5 mg PO BID 07/08/22 07/08/22 History atorvastatin 80 mg tablet 80 mg PO DAILY 07/08/22 07/08/22 History bisacodyl 10 mg rectal suppository 10 mg HI DAILY PRN Constipation 07/08/22 07/08/22 History clopidogrel 75 mg tablet (Plavix) 75 mg PO DAILY 07/08/22 07/08/22 History docusate sodium 100 mg capsule 100 mg PO BID 07/08/22 07/08/22 History empagliflozin 10 mg tablet 10 mg PO QAM 07/08/22 07/08/22 History (Jardiance) furosemide 20 mg tablet (Lasix) 20 mg PO QAM 07/08/22 07/08/22 History magnesium hydroxide 400 mg/5 mL 15 ml PO DAILY PRN Constipation 07/08/22 07/08/22 History oral suspension (Milk of Magnesia) ondansetron HCl 4 mg tablet 4 mg PO Q4H PRN NAUSEA/VOMITING 07/08/22 07/08/22 History pantoprazole 40 mg tablet,delayed 40 mg PO DAILYBB 07/08/22 07/08/22 History release polyethylene glycol 3350 17 17 g PO QDL PRN Constipation 07/08/22 07/08/22 History gram/dose oral powder (Miralax) sacubitril 24 mg-valsartan 26 mg 1 tab PO BID 07/08/22 07/08/22 History tablet sennosides 8.6 mg-docusate sodium 1 tab-cap PO QDL PRN Constipation 07/08/22 07/08/22 History 50 mg tablet (Senokot-S) sodium phosphates 19 gram-7 118 ml HI DAILY PRN Constipation 07/08/22 07/08/22 History gram/118 mL enema (Fleet Enema) spironolactone 25 mg tablet 25 mg PO DAILY 07/08/22 07/08/22 History umeclidinium 62.5 mcg/actuation 1 inh inhalation DAILY 07/08/22 07/08/22 History blister powder for inhalation Patient History Medical History Alcohol use disorder HTN (hypertension) Lung nodule Surgical History Hx of colonoscopy Family History Other Cancer Hypertension Social History Smoking Status: Former smoker Tobacco Type: Cigarettes Hx Alcohol Use: Yes Alcohol type: beer Alcohol type Comment: 5 beers nightly, last drink 05/30/22 Hx Substance Use: No Preferred Language: Czech Communication Ability: Effective 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: No Beliefs That Will Affect Care: None Current Living Situation: Family Feels Safe at Home: Yes Safety Concerns: Feels Safe At This Time Assistive Devices: Denture - Upper, Denture - Lower and Glasses Review of Systems Review of Systems: All systems reviewed & are unremarkable except as noted in HPI & below Physical Exam Constitutional: WD/WN, vitals as above + ill appearing and + cachectic Neck: trachea midline, no thyromegaly Respiratory: + labored breathing and + cough Auscultation: + crackles, + rhonchi and + wheezes Cardiovascular: Rate/Rhythm: regular rate and regular rhythm Heart Sounds: no murmur Vessels: + JVD Extremities: no edema Gastrointestinal (Abdomen): normal bowel sounds, soft, nontender, no hepatosplenomegaly Neurologic: PERRL, EOMI, accommodation nl, no face palsy, no dysarthria Results & Data ([facility]) Vital Signs (Past 12 Hours) Vital Signs Temp Pulse Pulse Resp BP Pulse Ox O2 Del Method 07/08/22 08:15 81 24 100 07/08/22 08:00 81 22 100 07/08/22 08:00 95/47 L 07/08/22 07:53 83 24 100 07/08/22 07:53 91/54 L 07/08/22 07:52 82 21 98 07/08/22 07:52 85/48 L 07/08/22 07:45 79 22 100 07/08/22 07:45 92/48 L 07/08/22 07:30 78 98 07/08/22 07:30 87/50 L 07/08/22 07:15 75 24 99 07/08/22 07:15 84/45 L 07/08/22 07:00 70 99 07/08/22 07:00 75/41 L 07/08/22 07:06 75 24 100 Oxymask 07/08/22 06:59 99 Oxymask 07/08/22 06:45 78 26 H 100 BiPAP 07/08/22 06:45 80/46 L 07/08/22 06:40 79 25 H 100 BiPAP 07/08/22 06:40 79/47 L 07/08/22 06:32 79 28 H 100 BiPAP 07/08/22 06:32 73/47 L 07/08/22 06:30 80 25 H 100 BiPAP 07/08/22 06:15 83 35 H 100 BiPAP 07/08/22 06:07 81/44 L 07/08/22 06:07 78 29 H 93 BiPAP 07/08/22 06:00 75 21 99 BiPAP 07/08/22 05:52 81 29 H 100 BiPAP 07/08/22 05:52 82/51 L 07/08/22 05:51 81 28 H 100 BiPAP 07/08/22 05:51 78/59 L 07/08/22 05:49 82 31 H 98 BiPAP 07/08/22 05:30 81 29 H 100 BiPAP 07/08/22 05:49 82 29 H 100 07/08/22 05:15 78 24 87/51 L 99 BiPAP 07/08/22 05:00 84 27 H 97/62 L 100 BiPAP 07/08/22 04:45 90 34 H 104/55 L 99 BiPAP 07/08/22 04:45 92 H 28 H 104/55 L 100 BiPAP 07/08/22 04:31 90 105/59 L 100 07/08/22 04:15 93 H 28 H 100/51 L 100 BiPAP 07/08/22 04:00 97 H 31 H 101/57 L 98 BiPAP 07/08/22 03:45 101 H 33 H 112/89 100 BiPAP 07/08/22 03:45 96 BiPAP 07/08/22 03:40 98 BiPAP 07/08/22 03:30 98 07/08/22 03:30 100 H 29 H 105/78 97 BiPAP 07/08/22 03:20 100 H 29 H 97 BiPAP 07/08/22 03:15 140/75 07/08/22 03:15 98 H 29 H 96 BiPAP 07/08/22 03:10 98 H 30 H 96 BiPAP 07/08/22 03:00 98 H 32 H 144/80 H 94 BiPAP 07/08/22 03:01 94 BiPAP 07/08/22 02:58 97 H 33 H 94 07/08/22 02:44 94 BiPAP 07/08/22 02:13 86 26 H 97 07/08/22 02:25 36.7 C 96 H 28 H 134/97 99 BiPAP 07/08/22 02:25 BiPAP O2 Flow Rate FiO2 07/08/22 08:15 07/08/22 08:00 07/08/22 08:00 07/08/22 07:53 07/08/22 07:53 07/08/22 07:52 07/08/22 07:52 07/08/22 07:45 07/08/22 07:45 07/08/22 07:30 07/08/22 07:30 07/08/22 07:15 07/08/22 07:15 07/08/22 07:00 07/08/22 07:00 07/08/22 07:06 10 07/08/22 06:59 10 07/08/22 06:45 40 07/08/22 06:45 07/08/22 06:40 40 07/08/22 06:40 07/08/22 06:32 40 07/08/22 06:32 07/08/22 06:30 40 07/08/22 06:15 40 07/08/22 06:07 07/08/22 06:07 40 07/08/22 06:00 40 07/08/22 05:52 40 07/08/22 05:52 07/08/22 05:51 40 07/08/22 05:51 07/08/22 05:49 40 07/08/22 05:30 40 07/08/22 05:49 40 07/08/22 05:15 40 07/08/22 05:00 40 07/08/22 04:45 40 07/08/22 04:45 40 07/08/22 04:31 07/08/22 04:15 40 07/08/22 04:00 40 07/08/22 03:45 40 07/08/22 03:45 40 07/08/22 03:40 40 07/08/22 03:30 07/08/22 03:30 40 07/08/22 03:20 40 07/08/22 03:15 07/08/22 03:15 40 07/08/22 03:10 40 07/08/22 03:00 40 07/08/22 03:01 07/08/22 02:58 40 01/06/23 02:44 40 07/08/22 02:13 60 07/08/22 02:25 60 07/08/22 02:25 60 Laboratory Results Cardiac Enzymes 07/08/22 07/08/22 07/08/22 Range/Units 02:24 02:24 06:30 AST 28 (13-39) U/L Troponin I High Sens 37.0 H 50.3 H* D (0-20) pg/ml CBC 07/08/22 07/08/22 Range/Units 02:24 06:30 WBC 19.27 H 16.40 H (4.8-10.8) K/ul RBC 3.62 L 3.22 L (4.63-6.08) M/uL Hgb 10.8 L 9.9 L (14.0-18.0) g/dl Hct 34.7 L 30.0 L (40.1-51.0) % Plt Count 500 H 300 (130-400) K/uL Neut # (Auto) 14.82 H 15.71 H (1.4-6.5) K/uL Lymph # (Auto) 2.74 0.29 L (1.2-3.4) K/uL [place] # (Auto) 1.15 H 0.29 (0.24-0.82) K/uL Eos # (Auto) 0.36 0.00 (0-0.50) K/uL Baso # (Auto) 0.07 0.03 (0-0.2) K/uL Comprehensive Metabolic Panel 07/08/22 07/08/22 Range/Units 02:24 06:30 Sodium 135 L 139 (136-145) mmol/L Potassium 3.5 3.3 L (3.5-5.1) mmol/L Chloride 101 104 (98-107) mmol/L Carbon Dioxide 25 30 (21-32) mmol/L BUN 15 17 (6-23) mg/dl Creatinine 0.75 0.73 (0.6-1.4) mg/dl Glucose 335 H* 31 L* (70-99(Fasting)) mg/dl Calcium 8.6 8.1 L (8.5-10.1) mg/dl AST 28 (13-39) U/L ALT 38 (7-52) U/L Alkaline Phosphatase 105 H (34-104) U/L Total Protein 6.8 (6.0-8.3) gm/dl Albumin 3.7 (3.4-5.0) gm/dl Intake and Output 07/07/22 07/08/22 07/08/22 22:59 06:59 14:59 Intake Total 300 / 300 Balance 300 / 300 Intake: IV 300 / 300 Sodium Chloride 0.9% 1000ML 250 250 / 250 ml @ 500 mls/hr IV .Q30M [facility] Rx#:[id number] cefTRIAXone SODIUM 1,000 mg In 50 / 50 Dextrose 5% Ad-Van 50 ml @ 100 mls/hr IV Q24H [facility] Rx#:[id number] Other: Weight 51.1 kg Weight Measurement Method Built in [facility] Diagnostic Findings EKG on arrival: NSR, poor tracing with artifact. Telemetry reviewed - NSR, no arrhythmias Echo results pending Chest CT report reviewed today: IMPRESSION: 1. Abnormal soft tissue within the right subpectoral/axillary location with surrounding surgical clips which measures 5.7 x 4.8 cm. A neoplastic process would be the diagnosis of exclusion. 2. Emphysema and chronic scarring within the right lung again noted. 3. Interlobular septal thickening with patchy multifocal groundglass and consolidative airspace opacities as described above. This favors a mild multifocal pneumonia. 4. Small bilateral pleural effusions. Prior chest CT from [facility] 06/16/22 IMPRESSION Exam is somewhat limited due to motion artifact. 1. Consolidative and tree-in-bud opacities within the bilateral lungs, progressed compared to 06/09/2022 are concerning for multifocal pneumonia. Right upper lobe cavitary lesion again noted. 2. No acute intra-abdominal findings to explain patient's pain. 3. Stable right chest wall hematoma without evidence of active extravasation. 4. Findings suggestive of volume overload including bilateral pleural effusions, anasarca, and mesenteric edema. 5. Hypoenhancing lesion within the tail the pancreas. Recommend outpatient MRI with and without contrast for further characterization. ALEXIS completed at [facility] dated 06/22/22: Interpretation Summary The examination is adequate to evaluate the referral indication. The qualitative LV ejection fraction is 30-34% (moderately reduced). The RV size and systolic function are qualitatively normal. There is mild mitral regurgitation. There is an Impella device in place located along the interventricular septum. The inlet is located a 2.7 cm from the aortic valve. The outlet is seen in the ascending aorta. The results were discussed with the Heart Failure team at bedside. Echo completed at [facility] dated 06/16/22: Interpretation Summary Limited, focused study to assess Impella position. Impella device is present in the mid-ventricle. The inflow cage is seen in the mid ventricle and measures 3.4 cm from the aortic annulus. The qualitative LV ejection fraction is 30-34% (moderately reduced). Limited wall motion assessment. There is akinesis of the inferior and inferolateral manuel. No significant valvular disease is present. Medications Administered Current Inpatient Medications Acetaminophen (Acetaminophen 325 Mg Tab) 650 mg PO Q4H PRN PRN Reason: Pain or Fever Stop: 08/07/22 06:11 Albuterol (Albuterol Hfa 8 Gm Inhaler) 2 puffs INH Q4H PRN PRN Reason: Shortness Of Breath Or Wheezin Stop: 08/07/22 06:11 Amiodarone HCl (Amiodarone 200 Mg Tab) 200 mg PO DAILY [facility] Stop: 08/07/22 08:59 Last Admin: 07/08/22 09:53 Dose: 200 mg Apixaban (Apixaban 5 Mg Tablet) 5 mg PO BID [facility] Stop: 08/07/22 08:59 Last Admin: 07/08/22 09:53 Dose: 5 mg Atorvastatin Calcium (Atorvastatin 40 Mg Tab) 80 mg PO DAILY [facility] Stop: 08/07/22 08:59 Last Admin: 07/08/22 09:53 Dose: 80 mg Bisacodyl (Bisacodyl 10 Mg Supp) 10 mg HI DAILY PRN PRN Reason: Constipation Stop: 08/07/22 06:11 Clopidogrel Bisulfate (Clopidogrel Bisulfate 75 Mg Tab) 75 mg PO DAILY [facility] Stop: 08/07/22 08:59 Last Admin: 07/08/22 09:53 Dose: 75 mg Dextrose (Dextrose 50% 50 Ml Syringe) 25 - 50 ml IV UD PRN; Protocol PRN Reason: Hypoglycemia Protocol Stop: 08/07/22 06:11 Docusate Sodium (Docusate Sodium 100 Mg Cap) 100 mg PO BID [facility] Stop: 08/07/22 08:59 Last Admin: 07/08/22 09:53 Dose: 100 mg Doxycycline Hyclate (Doxycycline Hyclate 100 Mg Cap) 100 mg PO BID [facility] Stop: 07/15/22 06:59 Last Admin: 07/08/22 08:30 Dose: 100 mg Furosemide (Furosemide 40 Mg/4 Ml Vial) 40 mg IV [id number] [facility] Stop: 08/07/22 08:59 Glucagon (Glucagon For Inj 1 Mg Vial) 1 mg SQ UD PRN; Protocol PRN Reason: Hypoglycemia Protocol Stop: 08/07/22 06:11 Glucose (Glucose 40% Gel 15 Gm Tube) 15 - 30 gm PO UD PRN; Protocol PRN Reason: Hypoglycemia Protocol Stop: 08/07/22 06:11 Glucose (Glucose 10 Tab/Tube) 4 - 8 tab PO UD PRN; Protocol PRN Reason: Hypoglycemia Treatment Stop: 08/07/22 06:11 Methylprednisolone 40 mg/ (Syringe) 0.64 mls @ 1.5 mls/min IV Q8H [facility] Stop: 08/07/22 10:59 Last Admin: 07/08/22 11:11 Dose: 1.5 mls/min Norepinephrine Bitartrate (Levophed/D5w) 4 mg in 250 mls @ 9.581 mls/hr IV .Q24H [facility]; Protocol Stop: 08/07/22 08:14 Insulin Aspart (Insulin Aspart Per Unit) 0 units SC Q6 [facility] Stop: 08/07/22 07:59 Last Admin: 07/08/22 08:15 Dose: Not Given Ipratropium Freeland (Ipratropium [place] Neb Soln 0.02% 2.5 Ml Vial) 0.5 mg INH Q6R [facility] Stop: 08/07/22 06:59 Last Admin: 07/08/22 07:05 Dose: 0.5 mg Levalbuterol HCl (Levalbuterol 1.25mg/0.5ml Neb) 1.25 mg INH Q6R [facility] Stop: 08/07/22 06:59 Last Admin: 07/08/22 07:05 Dose: 1.25 mg Levalbuterol HCl (Levalbuterol 1.25mg/0.5ml Neb) 1.25 mg NEB Q2H PRN; Protocol PRN Reason: Shortness Of Breath Or Wheezing Stop: 08/07/22 06:11 Miscellaneous (Carbohydrates For Hypoglycemia ) 15 - 30 gm PO UD PRN PRN Reason: Hypoglycemia Protocol Stop: 08/07/22 06:11 Miscellaneous Information (Pharmacy Glycemic Mgmt Consult) 1 each N/A UD PRN PRN Reason: Consult Stop: 08/07/22 06:11 Nitroglycerin (Nitroglycerin Sl 0.4 Mg/Tab Tab) 0.4 mg SL UD PRN PRN Reason: Chest Pain Stop: 08/07/22 06:11 Pantoprazole Sodium (Pantoprazole 40 Mg Tab) 40 mg PO DAILYBB [facility] Stop: 08/07/22 06:29 Last Admin: 07/08/22 08:30 Dose: 40 mg Polyethylene Glycol (Polyethylene (Miralax) 17 Gm Pack) 17 gm PO QDL PRN PRN Reason: Constipation Stop: 08/07/22 06:11 Sacubitril/Valsartan (Valsartan/Sacubitril 26/24mg Tab) 1 tab PO BID [facility] Stop: 08/07/22 08:59 Senna/Docusate Sodium (Docusate Sodium/Senna 50/8.6mg Tab) 1 tab PO QDL PRN PRN Reason: Constipation Stop: 08/07/22 06:11 Sodium Biphosphate/Sodium Phosphate (Sod Phosphate/Sod Biphosphate Enema 132 Ml Btl) 118 ml HI DAILY PRN PRN Reason: Constipation Stop: 08/07/22 06:11 Spironolactone (Spironolactone 25 Mg Tab) 25 mg PO DAILY [facility] Stop: 08/07/22 08:59 Umeclidinium [place] (Umeclidinium [place] 62.5mcg/Blister 7 Puffs/Inhaler) 1 puffs INH DAILY [facility] Stop: 08/07/22 08:59 Last Admin: 07/08/22 09:54 Dose: 1 puffs
[2022-07-08] MEDS ORDERED: SPIRONOLACTONE 25 MG TAB PO SCH (09:00)
[2022-07-08] MEDS ORDERED: FUROSEMIDE 40 MG/4 ML VIAL IV SCH (09:00)
[2022-07-08] MEDS ORDERED: LANTUS PER UNIT CHARGE SQ SCH (09:00)
--- NOTE | 2022-07-08 09:06 | XRay Report ---
XR chest 1V portable CLINICAL HISTORY: Dyspnea. COMPARISON STUDY: Chest radiograph May 31, 2022. Chest CT September 26, 2017. FINDINGS: There is no pneumothorax. Right upper chest wall/axilla surgical clips are noted. There is mild cardiomegaly. There are small bilateral pleural effusions. Underlying emphysema is better depict ed on prior chest CT. Interstitial thickening and patchy opacities are noted. Suspected scarring with in the lungs with adjacent airspace opacity. This is better depicted on subsequent chest CT. IMPRESSION: 1. Interstitial pulmonary edema with small bilateral pleural effusions. 2. Patchy bilateral airspace opacities which could reflect a superimposed infectious process or alveo lar edema. Radiographic follow up to ensure resolution is recommended. 3. Emphysema. ACT 112: Negative or not required by law. Electronically signed by: Oc Huggins M.D. 07/08/2022 9:04 AM
[2022-07-08] MEDS: ATORVASTATIN 40 MG TAB PO SCH (09:53)
[2022-07-08] MEDS: DOCUSATE SODIUM 100 MG CAP PO SCH ×2 (09:53→20:39)
[2022-07-08] MEDS: CLOPIDOGREL BISULFATE 75 MG TAB PO SCH (09:53)
[2022-07-08] MEDS: AMIODARONE 200 MG TAB PO SCH (09:53)
[2022-07-08] MEDS: APIXABAN 5 MG TABLET PO SCH ×2 (09:53→20:32)
[2022-07-08] MEDS: UMECLIDINIUM BROMIDE 62.5MCG/BLISTER 7 PUFFS/INHALER INH SCH (09:54)
[2022-07-08] MEDS ORDERED: methylPREDNISolone 40 MG in SYRINGE 0 ML IV SCH (11:00)
--- NOTE | 2022-07-08 11:08 | Pharmacy Report ---
Pharmacy Glycemic Short Note 2 - Date of Service July 08, 2022 - Glycemic Short BSG Results (Last 24 hours): 07/08/22 07/08/22 07/08/22 02:24 02:28 06:30 Glucose 335 H* 31 L* POC Glucose POC Glucose (other) 327 H 07/08/22 07:57 Glucose POC Glucose 90 POC Glucose (other) OUTPATIENT ANTIDIABETIC REGIMEN: * Empagliflozin 10mg PO qAM * HbA1c: 5.3% (07/08/22) ASSESSMENT: * Mr Clement is a 66yo male admitted with shortness of breath. * PMH is significant for alcohol/tobacco abuse, hx NSTEMI, CHF, HTN, CHF * Pt was significantly hyperglycemic (on both lab draw and POC --> BSGs 335 and 327 mg/dL respectively) on presentation to ED. * Pt was given a small dose of IV insulin (5 units) and next BSG check was 31 mg/dL on lab draw. * Pt received 125mg IV SoluMedrol in ED, with 40mg IV q8h ordered on admission. This is expected to lead to steroid-induced hyperglycemia, but BSGs do not reflect this so far. * Novolog ordered for correction, should patient become hyperglycemic. * No basal insulin or carb coverage ordered at this time in light of patient's recent hypoglycemic episode and degree of insulin sensitivity observed after small IV insulin dose received. PLAN FOR INPATIENT GLYCEMIC CONTROL: * Hold outpatient oral diabetes medications * Basal insulin * none at this time * Bolus insulin * NovoLog per scale ACHS or Q6hrs while NPO * Goal Range: Low 120 mg/dL - High 150 mg/dL * Correction Factor: 45 mg/dL/unit * Nutritional / Prandial insulin: none at this time
[2022-07-08] MEDS ORDERED: PNEUMOCOCCAL POLYSACCHARIDES 25 MCG/0.5 ML VIAL/SYR IM ONE (13:29)
--- NOTE | 2022-07-08 13:42 | Critical Care Consultation ---
Date of Consultation July 08, 2022 Assessment & Plan (1) Acute heart failure with reduced ejection fraction and diastolic dysfunction: Reason Critically Ill: 66yo male with PMHx significant for alcohol abuse, history of tobacco abuse, history of non-ST elevated AL, history of CHF, hypertension, shock liver, chest wall hematoma presents with complaints of shortness of breath. Admitted to ICU for vasopressor support. Neuro - [facility] ICU: NEGATIVE Sedation: none Analgesia: Tylenol prn Cardiac - Acute on chronic HFrEF, h/o multivessel CAD s/p recent multivessel intervention/PCI, afib, hypotension -Echo: generally improved from previous, EF 45-50%, no thrombus, moderate hypokinesis of basal inferior wall, mild diffuse hypokinesis -HsTrop 50, peaked -initial EKG without ST changes. Repeat pending. -cont. plavix, eliquis, amiodarone, statin -Entresto and spironolactone on hold due to low BPs -currently on levophed for vasopressor support -continue furosemide 40 mg IV bid if BP allows -daily weights, strict IO's, monitor Cr Respiratory - acute respiratory failure 2/2 multifocal pneumonia and mild COPD exacerbation -CXR: patchy bilateral airspace opacities -CT chest: Emphysema and chronic scarring within the right lung, interlobular septal thickening with patchy multifocal ground glass and consolidative airspace opacities, small bilateral pleural effusions -currently saturating 98% on 2L NC, ween as able -abx for pneumonia as below -cont. IV solumedrol daily, nebs GI - No concerns at this time -on protonix for reflux disease RENAL/LYTES - Replace lytes as needed - No concerns at this time ENDO - -on hypoglycemic protocol -holding home Jardiance -on SSI -pharmacy following HEME - -mildly anemic from 2 months ago likely in the setting of infection -cont. to monitor Hgb ID - multifocal pneumonia (typical vs atypical) -CT chest: interlobular septal thickening with patchy multifocal ground glass and consolidative airspace opacities -leukocytosis with left shift -procal wnl -Rocephin x1 in ED. Continue with doxycycline and cefepime for now. LINES/IV ACCESS - PIVs intact DVT PROPHYLAXIS - Home Eliquis Thank you for allowing us to be part of this patient's care. Please refer to my attending's documentation for any further recommendations. (2) CAD (coronary artery disease): (3) Pneumonia: (4) Lung mass: (5) COPD exacerbation: (6) HTN (hypertension): Supervising Physician Co-Signing Physician Notes Dr. Sheehan was the resident-physician during care of patient. I separately evaluated patient for diaz portions of the history and the exam. I was present during the critical portion of medical decision making, and I discussed the case with the resident. I generally agree with the findings and plan except for any additions/exceptions noted. 66-year-old male past medical history of systolic CHF, COPD, hypertension presented to the hospital with complaints of shortness of breath from rehab. Patient recently underwent multivessel PCI diagonal in June 2022 which was complicated by hemorrhagic shock and cardiogenic shock. A. fib on apixaban and amiodarone. In the ER patient was found to be borderline hypotensive and requiring BiPAP support. ICU was consulted for the same. When the patient presented to the ICU. His blood pressure was on the softer side but map was around 63-65 Patient was feeling better and was asking actually to have something to eat. He was saturating 95 to 96% on 2 L of nasal cannula. Stated shortness of breath is improved since coming to the hospital. Denied any headache, no nausea or vomiting No dysuria, no diarrhea. Denies any fever or chills. Does complain of cough and difficulty bringing it up. Constitutional: No acute distress, frail-appearing HEENT: EOMI, PERRLA Respiratory system: Decreased air entry bilaterally, no wheeze, no rhonchi, positive crackles bilateral lower lobes CVS: S1-S2 positive, no murmurs or gallops, right-sided subclavicular incision edema appreciated Abdomen: Soft, nontender, nondistended, positive bowel sounds x4 Extremities: +2 pulses bilaterally radialis/ dorsalis pedis, no cyanosis, no edema Neuro: Awake alert oriented x3 Psych: Normal mood and affect G/U: No De La Cruz --Prophylaxis VTE: Apixaban GI: Pantoprazole Lines: Peripheral Diet: Cardiac Plan: Strict in and out. Patient does seem to multilobar pneumonia. Continue with antibiotics Procalcitonin was negative. Continue with Incruse for COPD Hold antihypertensive medication Levophed if the patient MAP is less than 65 I have personally spent 56 minutes of critical care time in the direct management of this patient. This is a life/limb threatening event. This includes time spent evaluating patient, direct bedside care, chart review, placing orders, interpretation of diagnostic studies, discussion with consultants, patient, and/or family members regarding treatment decisions, as well as other required patient management activities. This time is exclusive of all separately billable procedures, and teaching time and separate from and in addition to any other critical care service time. History of Present Illness Reason for Consultation: Vasopressor support Attending Physician: Ace Patel MD History of Present Illness 66yo male with PMHx significant for alcohol abuse, history of tobacco abuse, history of non-ST elevated AL, history of CHF, hypertension, shock liver, chest wall hematoma presents with complaints of shortness of breath. Admitted to ICU for vasopressor support. The patient was admitted to our hospital on 05/31/2022 with acute respiratory failure, non-ST elevated AL, cardiogenic shock, CHF, EF around 25% and COPD exacerbation. He was hypoxic at that time at 70% and improved on BiPAP. At that time, his white count was 19,000 and lactate was 9.9.Troponin was 15,000. EKG showed ST depression in lateral leads and showed 20-25% EF. Heart alert was called. Urgent cardiac catheterization was done, which revealed severe multivessel coronary artery disease with severely calcified and occluded left circumflex at [facility] and was transferred to [place]. It looks like he stayed in [place] for whole June and in [place] he was placed on intraaortic balloon pump. IABP was later upgraded to Impella( IABP seemed to have broken), underwent multivessel PCI, complicated by hemorrhagic shock and cardiogenic shock, intubated for pulmonary edema, looks like intubated for many days.Diagnosed and treated empirically for pneumonia.Ultimately extubated and Impella removed.He was found to have new onset AFib during the course and currently on amiodarone and Eliquis, and he was discharged to [facility] on 07/02/2022 and now he comes back with shortness of breath. Patient feeling much better now since admission however has not been moving around. At rehab he was able to ambulate +/- cane. Denies fever, chest pain, sob, headache, abd pain, N/V, dysuria. Compliant with home medications. Allergies Allergy/AdvReac Type Severity Reaction Status Date / Time piperacillin [From Zosyn] Allergy Unknown ON Verified 07/08/22 02:26 [facility] tazobactam [From Zosyn] Allergy Unknown ON Verified 07/08/22 02:26 [facility] Home Medications Medication Instructions Recorded Confirmed Type acetaminophen 325 mg tablet 325 mg PO Q4H PRN Pain 07/08/22 07/08/22 History (Tylenol) albuterol sulfate 90 mcg/actuation 2 puff inhalation Q4H PRN 07/08/22 07/08/22 History aerosol inhaler Shortness Of Breath Or Wheezing albuterol sulfate 90 mcg/actuation 2 puff inhalation QID 07/08/22 07/08/22 History aerosol inhaler amiodarone 200 mg tablet 200 mg PO DAILY 07/08/22 07/08/22 History apixaban 5 mg tablet (Eliquis) 5 mg PO BID 07/08/22 07/08/22 History atorvastatin 80 mg tablet 80 mg PO DAILY 07/08/22 07/08/22 History bisacodyl 10 mg rectal suppository 10 mg NV DAILY PRN Constipation 07/08/22 07/08/22 History clopidogrel 75 mg tablet (Plavix) 75 mg PO DAILY 07/08/22 07/08/22 History docusate sodium 100 mg capsule 100 mg PO BID 07/08/22 07/08/22 History empagliflozin 10 mg tablet 10 mg PO QAM 07/08/22 07/08/22 History (Jardiance) furosemide 20 mg tablet (Lasix) 20 mg PO QAM 07/08/22 07/08/22 History magnesium hydroxide 400 mg/5 mL 15 ml PO DAILY PRN Constipation 07/08/22 07/08/22 History oral suspension (Milk of Magnesia) ondansetron HCl 4 mg tablet 4 mg PO Q4H PRN NAUSEA/VOMITING 07/08/22 07/08/22 History pantoprazole 40 mg tablet,delayed 40 mg PO DAILYBB 07/08/22 07/08/22 History release polyethylene glycol 3350 17 17 g PO QDL PRN Constipation 07/08/22 07/08/22 History gram/dose oral powder (Miralax) sacubitril 24 mg-valsartan 26 mg 1 tab PO BID 07/08/22 07/08/22 History tablet sennosides 8.6 mg-docusate sodium 1 tab-cap PO QDL PRN Constipation 07/08/22 07/08/22 History 50 mg tablet (Senokot-S) sodium phosphates 19 gram-7 118 ml NV DAILY PRN Constipation 07/08/22 07/08/22 History gram/118 mL enema (Fleet Enema) spironolactone 25 mg tablet 25 mg PO DAILY 07/08/22 07/08/22 History umeclidinium 62.5 mcg/actuation 1 inh inhalation DAILY 07/08/22 07/08/22 History blister powder for inhalation Patient History Medical History Alcohol use disorder HTN (hypertension) Lung nodule Surgical History Hx of colonoscopy Family History Other Cancer Hypertension Social History Smoking Status: Former smoker Tobacco Type: Cigarettes Hx Alcohol Use: Yes Alcohol type: beer Alcohol type Comment: 5 beers nightly, last drink 05/30/22 Hx Substance Use: No Preferred Language: Macedonian Communication Ability: Effective Power Originator Required: No Beliefs That Will Affect Care: None Current Living Situation: Family Feels Safe at Home: Yes Safety Concerns: Feels Safe At This Time Assistive Devices: Denture - Upper, Denture - Lower and Glasses Review of Systems Review of Systems: All systems reviewed & are unremarkable except as noted in HPI & below Physical Exam Physical Exam: Constitutional: in no acute distress, pleasant. Vitals as above. HEENT: No scleral injection or discharge.Moist mucous membranes.Clear oropharynx without erythema/exudate. Neck: Supple without lymphadenopathy or thyromegaly. Trachea midline. Lungs: Mild bibasilar crackles heard but otherwise clear with no wheezing. Good inspiratory effort. Cardiac: Regular rate and rhythm.No murmurs. No extremity edema. 2+ peripheral pulses. Abdomen: Bowel sounds present. Soft, nontender, and nondistended.No guarding or rebound tenderness. MSK: No cyanosis or clubbing. Extremities motor strength 5/5. Skin: No rashes, warm, dry. Neurologic: Grossly intact cranial nerves Results & Data Results & Data ([facility]) Vital Signs (Past 12 Hours) Vital Signs Temp Pulse Pulse Resp BP BP Pulse Ox 07/08/22 13:23 84 22 96 07/08/22 13:00 36.8 C 90 22 86/54 L 98 07/08/22 13:02 07/08/22 11:42 81 18 86/50 L 100 07/08/22 11:42 07/08/22 10:32 07/08/22 10:32 07/08/22 09:15 88 27 H 100 07/08/22 09:00 86 27 H 99 07/08/22 09:00 97/57 L 07/08/22 08:47 80 25 H 100 07/08/22 08:47 93/56 L 07/08/22 08:45 82 25 H 100 07/08/22 08:30 84 28 H 98 07/08/22 08:27 85 28 H 99 07/08/22 08:27 91/53 L 07/08/22 08:15 81 24 100 07/08/22 08:00 81 22 100 07/08/22 08:00 95/47 L 07/08/22 07:53 83 24 100 07/08/22 07:53 91/54 L 07/08/22 07:52 82 21 98 07/08/22 07:52 85/48 L 07/08/22 07:45 79 22 100 07/08/22 07:45 92/48 L 07/08/22 07:30 78 98 07/08/22 07:30 87/50 L 07/08/22 07:15 75 24 99 07/08/22 07:15 84/45 L 07/08/22 07:00 70 99 07/08/22 07:00 75/41 L 07/08/22 07:06 75 24 100 07/08/22 06:59 99 07/08/22 06:45 78 26 H 100 07/08/22 06:45 80/46 L 07/08/22 06:40 79 25 H 100 07/08/22 06:40 79/47 L 07/08/22 06:32 79 28 H 100 07/08/22 06:32 73/47 L 07/08/22 06:30 80 25 H 100 07/08/22 06:15 83 35 H 100 07/08/22 06:07 81/44 L 07/08/22 06:07 78 29 H 93 07/08/22 06:00 75 21 99 07/08/22 05:52 81 29 H 100 07/08/22 05:52 82/51 L 07/08/22 05:51 81 28 H 100 07/08/22 05:51 78/59 L 07/08/22 05:49 82 31 H 98 07/08/22 05:30 81 29 H 100 07/08/22 05:49 82 29 H 100 07/08/22 05:15 78 24 87/51 L 99 07/08/22 05:00 84 27 H 97/62 L 100 07/08/22 04:45 90 34 H 104/55 L 99 07/08/22 04:45 92 H 28 H 104/55 L 100 07/08/22 04:31 90 105/59 L 100 07/08/22 04:15 93 H 28 H 100/51 L 100 07/08/22 04:00 97 H 31 H 101/57 L 98 07/08/22 03:45 101 H 33 H 112/89 100 07/08/22 03:45 96 07/08/22 03:40 98 07/08/22 03:30 98 07/08/22 03:30 100 H 29 H 105/78 97 07/08/22 03:20 100 H 29 H 97 07/08/22 03:15 140/75 07/08/22 03:15 98 H 29 H 96 07/08/22 03:10 98 H 30 H 96 07/08/22 03:00 98 H 32 H 144/80 H 94 07/08/22 03:01 94 07/08/22 02:58 97 H 33 H 94 07/08/22 02:44 94 07/08/22 02:13 86 26 H 97 07/08/22 02:25 36.7 C 96 H 28 H 134/97 99 07/08/22 02:25 Pulse Ox O2 Del Method O2 Del Method O2 Flow Rate O2 Flow Rate FiO2 07/08/22 13:23 Oxymask 3 07/08/22 13:00 Oxymask 3 07/08/22 13:02 Oxymask 3 07/08/22 11:42 Oxymask 5 07/08/22 11:42 100 Oxymask 5 07/08/22 10:32 Oxymask 07/08/22 10:32 Oxymask 5 07/08/22 09:15 Oxymask 07/08/22 09:00 Oxymask 07/08/22 09:00 07/08/22 08:47 Oxymask 07/08/22 08:47 07/08/22 08:45 Oxymask 07/08/22 08:30 07/08/22 08:27 07/08/22 08:27 07/08/22 08:15 07/08/22 08:00 07/08/22 08:00 07/08/22 07:53 07/08/22 07:53 07/08/22 07:52 07/08/22 07:52 07/08/22 07:45 07/08/22 07:45 07/08/22 07:30 07/08/22 07:30 07/08/22 07:15 07/08/22 07:15 07/08/22 07:00 07/08/22 07:00 07/08/22 07:06 Oxymask 10 07/08/22 06:59 Oxymask 10 07/08/22 06:45 BiPAP 40 07/08/22 06:45 07/08/22 06:40 BiPAP 40 07/08/22 06:40 07/08/22 06:32 BiPAP 40 07/08/22 06:32 07/08/22 06:30 BiPAP 40 07/08/22 06:15 BiPAP 40 07/08/22 06:07 07/08/22 06:07 BiPAP 40 07/08/22 06:00 BiPAP 40 07/08/22 05:52 BiPAP 40 07/08/22 05:52 07/08/22 05:51 BiPAP 40 07/08/22 05:51 07/08/22 05:49 BiPAP 40 07/08/22 05:30 BiPAP 40 07/08/22 05:49 40 07/08/22 05:15 BiPAP 40 07/08/22 05:00 BiPAP 40 07/08/22 04:45 BiPAP 40 07/08/22 04:45 BiPAP 40 07/08/22 04:31 07/08/22 04:15 BiPAP 40 07/08/22 04:00 BiPAP 40 07/08/22 03:45 BiPAP 40 07/08/22 03:45 BiPAP 40 07/08/22 03:40 BiPAP 40 07/08/22 03:30 07/08/22 03:30 BiPAP 40 07/08/22 03:20 BiPAP 40 07/08/22 03:15 07/08/22 03:15 BiPAP 40 07/08/22 03:10 BiPAP 40 07/08/22 03:00 BiPAP 40 07/08/22 03:01 BiPAP 07/08/22 02:58 40 07/08/22 02:44 BiPAP 40 07/08/22 02:13 60 07/08/22 02:25 BiPAP 60 07/08/22 02:25 BiPAP 60 Laboratory Results Laboratory Results WBC 16.40 K/ul (4.8-10.8) H 07/08/22 06:30 RBC 3.22 M/uL (4.63-6.08) L 07/08/22 06:30 Hgb 9.9 g/dl (14.0-18.0) L 07/08/22 06:30 POC Hgb 11.9 g/dl (14.0-18.0) L 07/08/22 03:38 Hct 30.0 % (40.1-51.0) L 07/08/22 06:30 POC Hct 35 % (42-52) L 07/08/22 03:38 MCV 93.2 fL (80.0-100.0) 07/08/22 06:30 MCH 30.7 pg (25.0-34.0) 07/08/22 06:30 MCHC 33.0 g/dL (32.0-36.0) 07/08/22 06:30 RDW Std Deviation 52.6 fL (36.4-46.3) H 07/08/22 06:30 RDW Coeff of Gordon 15.4 % (11.5-14.5) H 07/08/22 06:30 Plt Count 300 K/uL (130-400) 07/08/22 06:30 MPV 10.2 fL (9.4-12.4) 07/08/22 06:30 Immature Gran % (Auto) 0.5 % 07/08/22 06:30 Neut % (Auto) 95.7 % 07/08/22 06:30 Lymph % (Auto) 1.8 % 07/08/22 06:30 [place]field % (Auto) 1.8 % 07/08/22 06:30 Eos % (Auto) 0.0 % 07/08/22 06:30 Baso % (Auto) 0.2 % 07/08/22 06:30 Neut # (Auto) 15.71 K/uL (1.4-6.5) H 07/08/22 06:30 Lymph # (Auto) 0.29 K/uL (1.2-3.4) L 07/08/22 06:30 Whitfield # (Auto) 0.29 K/uL (0.24-0.82) 07/08/22 06:30 Eos # (Auto) 0.00 K/uL (0-0.50) 07/08/22 06:30 Baso # (Auto) 0.03 K/uL (0-0.2) 07/08/22 06:30 Immature Gran # (Auto) 0.08 K/uL (0.00-0.02) H 07/08/22 06:30 Polychromasia 1+ 07/08/22 06:30 POC pH 7.23 (7.35-7.45) L 07/08/22 03:38 POC pCO2 62 mmHg (35-46) H 07/08/22 03:38 POC pO2 106 mmHg (80-95) H 07/08/22 03:38 POC HCO3 26 cristian/L (19-24) H 07/08/22 03:38 POC Total CO2 28 mmol/L (24-31) 07/08/22 03:38 POC Base Excess -2.0 cristian/L (-9-1.8) 07/08/22 03:38 ABG pH 7.43 (7.35-7.45) 07/08/22 06:09 ABG pCO2 42 mmHg (35-46) 07/08/22 06:09 ABG pO2 154 mmHg (80-95) H 07/08/22 06:09 ABG HCO3 28 mmol/L (19-24) H 07/08/22 06:09 POC ABG O2 Sat 97.0 % (90-95) H 07/08/22 03:38 ABG O2 Saturation 99.7 % (90-95) H 07/08/22 06:09 ABG Base Excess 3.2 mEq/L (-9-1.8) H 07/08/22 06:09 Horace Test Pos (Pos) 07/08/22 06:09 Oxygen Given 40% 07/08/22 06:09 POC Sodium 136 mmol/L (135-144) 07/08/22 03:38 Sodium 139 mmol/L (136-145) 07/08/22 06:30 POC Potassium 3.2 mmol/L (3.3-5.0) L 07/08/22 03:38 Potassium 3.3 mmol/L (3.5-5.1) L 07/08/22 06:30 POC Chloride 100 mmol/L (101-112) L 07/08/22 02:28 Chloride 104 mmol/L (98-107) 07/08/22 06:30 Carbon Dioxide 30 mmol/L (21-32) 07/08/22 06:30 POC Total CO2 27 mmol/L (24-31) 07/08/22 02:28 Anion Gap 5 (3-11) 07/08/22 06:30 POC Anion Gap 12.0 mmol/L (16-25) L 07/08/22 02:28 POC BUN 17 mg/dl (7-18) 07/08/22 02:28 BUN 17 mg/dl (6-23) 07/08/22 06:30 Creatinine 0.73 mg/dl (0.6-1.4) 07/08/22 06:30 POC Creatinine 0.7 mg/dl (0.6-1.3) 07/08/22 02:28 Est Cr Clr Drug Dosing 71.0 ml/min 07/08/22 06:30 Est GFR ( Amer) 111.2 ml/min 07/08/22 06:30 Est GFR (Non-Af Amer) 96.0 ml/min 07/08/22 06:30 BUN/Creatinine Ratio 23.3 (10-20) H 07/08/22 06:30 Glucose 31 mg/dl (70-99(Fasting)) L* 07/08/22 06:30 POC Glucose 90 mg/dl (70-99) 07/08/22 07:57 POC Glucose (other) 327 mg/dl (70-99) H 07/08/22 02:28 Estimat Average Glucose 105 mg/dl 07/08/22 06:30 Hemoglobin A1c 5.3 % (4.5-5.6) 07/08/22 06:30 Lactate 1.3 mmol/L (0.4-2.0) 07/08/22 08:11 Calcium 8.1 mg/dl (8.5-10.1) L 07/08/22 06:30 POC Ioniz Calcium Amee 1.11 mmol/l (1.12-1.32) L 07/08/22 02:28 Magnesium 1.8 mg/dl (1.7-2.4) 07/08/22 06:30 Total Bilirubin 1.1 mg/dl (0.2-1.0) H 07/08/22 02:24 AST 28 U/L (13-39) 07/08/22 02:24 ALT 38 U/L (7-52) 07/08/22 02:24 Alkaline Phosphatase 105 U/L (34-104) H 07/08/22 02:24 Troponin I High Sens 50.3 pg/ml (0-20) H* D 07/08/22 06:30 Total Protein 6.8 gm/dl (6.0-8.3) 07/08/22 02:24 Albumin 3.7 gm/dl (3.4-5.0) 07/08/22 02:24 Globulin 3.1 gm/dl (2.5-4.0) 07/08/22 02:24 Albumin/Globulin Ratio 1.2 (0.9-2) 07/08/22 02:24 Urine Color Yellow 07/08/22 03:10 Urine Appearance Clear (Clear) 07/08/22 03:10 Urine pH 5.5 (4.5-7.5) 07/08/22 03:10 Ur Specific [place] 1.028 (1.000-1.030) 07/08/22 03:10 Urine Protein Trace (Negative) H 07/08/22 03:10 Urine Glucose (UA) 3+ (Negative) H 07/08/22 03:10 Urine Ketones Negative (Negative) 07/08/22 03:10 Urine Blood Negative (Negative) 07/08/22 03:10 Urine Nitrite Negative (Negative) 07/08/22 03:10 Urine Bilirubin Negative (Negative) 07/08/22 03:10 Urine Urobilinogen Negative (Negative) 07/08/22 03:10 Ur Leukocyte Esterase Negative (Negative) 07/08/22 03:10 Urine WBC (Auto) 1-5 /hpf (0-5) 07/08/22 03:10 Urine RBC (Auto) 0-4 /hpf (0-4) 07/08/22 03:10 U Hyaline Cast (Auto) 5-10 /lpf (0-5) H 07/08/22 03:10 U Epithel Cells (Auto) >30 /lpf (0-5) H 07/08/22 03:10 Urine Bacteria (Auto) Negative (Negative) 07/08/22 03:10 Ur Renal Epithelial Cell 0-5 /lpf (0-5) 07/08/22 03:10 SARS-CoV-2 (PCR) NEGATIVE (Negative) 07/08/22 02:15 Influenza Type A (PCR) Negative (Neg) 07/08/22 02:15 Influenza Type B (PCR) Negative (Neg) 07/08/22 02:15 RSV (RT-PCR) Negative (Neg) 07/08/22 02:15 Impressions Chest X-Ray 07/08/22 02:22 XR chest 1V portable CLINICAL HISTORY: Dyspnea. COMPARISON STUDY: Chest radiograph May 31, 2022. Chest CT September 26, 2017. FINDINGS: There is no pneumothorax. Right upper chest wall/axilla surgical clips are noted. There is mild cardiomegaly. There are small bilateral pleural effusio ns. Underlying emphysema is better depicted on prior chest CT. Interstitial thickening and patchy opacities are noted. Suspected scarring within the lungs with adjacent airspace opacity. This is better depicted on subsequent chest CT. IMPRESSION: 1. Interstitial pulmonary edema with small bilateral pleural effusions. 2. Patchy bilateral airspace opacities which could reflect a superimposed infectious process or alveolar edema. Radiographic follow up to ensure resolution is recommended. 3. Emphysema. ACT 112: Negative or not required by law. Electronically signed by: Oc Huggins M.D. 07/08/2022 9:[address] 07/08/22 04:57 CT chest diagnostic wo con CT DOSE: 264.06 mGy.cm HISTORY: Congestive heart failure. Pneumonia. Shortness of breath. TECHNIQUE: Multiaxial CT images of the chest were performed without contrast. A dose lowering technique was utilized adhering to the principles of ALARA. COMPARISON: Chest CT 09/26/2017. FINDINGS: Limited views of the upper abdomen demonstrate normal liver, spleen, and adrenal glands. There are small bilateral pleural effusions. No significant mediastinal or hilar lymphadenopathy. Extensive calcified plaque within the coronary arteries and normal caliber thoracic aorta. The heart is normal in size. No pericardial effusion. There is abnormal soft tissue within the right axilla/subpectoral location with surrounding surgical clips which measures approximately 5.7 x 4.8 cm. There appears be a partially calcified vessel traversing this soft tissue abnormality. No left axillary lymphadenopathy. No acute fractures identified. No suspicious lytic or blastic osseous lesions. Mild emphysema. No pneumothorax. There is respiratory motion artifact. Trace mucoid material within the trachea and right mainstem bronchus. Patchy densities within the base of the right lower lobe with mild interlobular septal thickening.. Multifocal scarring again noted within the superior segment of the right lower lobe and right upper lobe. This remains unchanged. Mild interlobular septal thickening with patchy groundglass small consolidative densities seen within the left upper to midlung zone. IMPRESSION: 1. Abnormal soft tissue within the right subpectoral/axillary location with surrounding surgical clips which measures 5.7 x 4.8 cm. A neoplastic process would be the diagnosis of exclusion. 2. Emphysema and chronic scarring within the right lung again noted. 3. Interlobular septal thickening with patchy multifocal groundglass and consolidative airspace opacities as described above. This favors a mild multifocal pneumonia. 4. Small bilateral pleural effusions. ACT 112: Negative or not required by law. Electronically signed by: Burak Santacruz M.D. 07/08/2022 7:38 AM Resident Activity Tracking Resident Involvement: Resident Care Provided Care Provided: Adult [facility]
--- NOTE | 2022-07-08 15:55 | Electrocardiogram Report ---
Test Reason : Blood Pressure : / mmHG Vent. Rate : 093 BPM Atrial Rate : 093 BPM P-R Int : 170 ms QRS Dur : 112 ms QT Int : 420 ms P-R-T Axes : 043 094 006 degrees QTc Int : 522 ms Poor data quality, interpretation may be adversely affected Normal sinus rhythm Rightward axis Prolonged QT Abnormal ECG When compared with ECG of 31-MAY-2022 20:29, ST no longer depressed in Anterior leads Confirmed by Camron Gardner ([id number]) on 07/08/2022 3:55:22 PM Referred By: REFERRED SELF Confirmed By:Camron Gardner
[2022-07-08] MEDS: MAGNESIUM SULFATE / D5W 1 GM/100 ML BAG IV SCH ×2 (16:51→18:28)
[2022-07-08] MEDS: CEFEPIME 2,000 MG in SYRINGE 0 ML IV SCH ×2 (17:36→20:34)
--- NOTE | 2022-07-08 17:52 | Billing Data ---
Date of Service July 08, 2022 Coding Level of Care Code Critical Care 1st 30-74 mins Time Spent (min) 56
[2022-07-08] MEDS ORDERED: LACTATED RINGER'S 250 ML IV ONE (18:28)
[2022-07-09] MEDS: LEVALBUTEROL 1.25MG/0.5ML NEB INH SCH ×4 (01:34→20:11)
[2022-07-09] MEDS: IPRATROPIUM BROMIDE NEB SOLN 0.02% 2.5 ML VIAL INH SCH ×4 (01:34→20:11)
[2022-07-09 05:36] LABS: Hematocrit (blood only) 27.7 % (40.1-51.0); Hemoglobin 8.8 g/dl (14.0-18.0); Mean Corpuscular Hemoglobin 29.8 pg (25.0-34.0); Mean Corpuscular Hgb Conc 31.8 g/dL (32.0-36.0); Mean Corpuscular Volume 93.9 fL (80.0-100.0); Mean Platelet Volume 10.3 fL (9.4-12.4); Platelet Count 294 K/uL (130-400); RDW Coefficient of Variation 15.8 % (11.5-14.5); Red Blood Count 2.95 M/uL (4.63-6.08)
[2022-07-09 06:05] LABS: BUN Creatinine Ratio 23.4 (10-20); Calcium 7.9 mg/dl (8.5-10.1); Creatinine Clr Calc Pharmacy 65.3 ml/min; Est GFR (African American) 108.8 ml/min; Est GFR (Non-African American) 93.9 ml/min; Magnesium 2.3 mg/dl (1.7-2.4); Phosphorus 3.2 mg/dl (2.5-4.9); Potassium 3.1 mmol/L (3.5-5.1)
[2022-07-09] MEDS ORDERED: POTASSIUM CHLORIDE CRTAB 20 MEQ TABCR PO STA ×2 (06:10→07:54)
[2022-07-09] MEDS: PANTOprazole 40 MG TAB PO SCH (06:50)
[2022-07-09] MEDS: DOXYCYCLINE HYCLATE 100 MG CAP PO SCH ×2 (07:50→21:19)
[2022-07-09] MEDS: ATORVASTATIN 40 MG TAB PO SCH (07:50)
[2022-07-09] MEDS: AMIODARONE 200 MG TAB PO SCH (07:50)
[2022-07-09] MEDS: CLOPIDOGREL BISULFATE 75 MG TAB PO SCH (07:50)
[2022-07-09] MEDS: UMECLIDINIUM BROMIDE 62.5MCG/BLISTER 7 PUFFS/INHALER INH SCH (07:50)
--- NOTE | 2022-07-09 07:59 | Critical Care Progress Note ---
Date of Service July 09, 2022 Assessment & Plan (1) Acute heart failure with reduced ejection fraction and diastolic dysf unction: (2) CAD (coronary artery disease): (3) Pneumonia: (4) Lung mass: (5) COPD exacerbation: (6) HTN (hypertension): Plan .Reason Critically Ill: 66yo male with PMHx significant for alcohol abuse, history of tobacco abuse, history of non-ST elevated PA, history of CHF, hypertension, shock liver, chest wall hematoma presents with complaints of shortness of breath. Admitted to ICU for vasopressor support. Neuro - [facility] ICU: NEGATIVE Sedation: none Analgesia: Tylenol prn Cardiac - Acute on chronic HFrEF, h/o multivessel CAD s/p recent multivessel intervention/PCI, afib, hypotension -Echo: generally improved from previous, EF 45-50%, no thrombus, moderate hypokinesis of basal inferior wall, mild diffuse hypokinesis -initial EKG without ST changes -cont. plavix, amiodarone, statin -Entresto and spironolactone on hold due to low BPs -daily weights, strict IO's, monitor Cr Respiratory - Acute respiratory failure 2/2 multifocal pneumonia -CT chest: Emphysema and chronic scarring within the right lung, interlobular septal thickening with patchy multifocal ground glass and consolidative airspace opacities, small bilateral pleural effusions -currently saturating 98% on 2L NC weanthony as able -abx for pneumonia as below --COPD with emphysema On Incruse at home Brovana and budesonide added GI - No concerns at this time -on protonix for reflux disease RENAL/LYTES - Replace lytes as needed - No concerns at this time ENDO - -on ICU hypoglycemic protocol HEME - -- Hemoglobin trending down Continue to monitor H&H Transfuse if less than 7 ID - Multifocal pneumonia (typical vs atypical) -CT chest: interlobular septal thickening with patchy multifocal ground glass and consolidative airspace opacities -leukocytosis with left shift -procal wnl -Rocephin x1 in ED. Continue with doxycycline and cefepime for now. --Prophylaxis VTE: Apixaban on hold GI: Pantoprazole IV twice daily Lines: Peripheral Diet: Cardiac Plan: In/out: -1.5 L, urine output 1976 Potassium being replaced. Repeat H&H at 12 along with BMP DC Solu-Medrol, hold apixaban given the drop in hemoglobin Change Protonix to IV twice daily Brovana and budesonide added for underlying history of COPD. Continue with Incruse on top of that. With the patient on BiPAP nightly and as needed shortness of breath. Please note the above document was generated using voice recognition software. It may contain grammatical, syntax or spelling errors.Any formal questions or concerns about the content, text or information contained within the body of this dictation should be directly addressed to the provider for clarification. Admission and Anticipated Discharge Date Admission Date: July 08, 2022 Subjective Patient seen and examined at bedside. No events overnight Patient was breathing a bit heavily compared to when I saw him last time. He had just returned from the bedside commode. His saturation was 92% on 2 L. Denies any chest pain, no headache, no nausea, no vomiting. Does complain of cough with clear phlegm. No nausea or vomiting Fair appetite Review of Systems Review of Systems: All systems reviewed & are unremarkable except as noted in Subjective Physical Exam Physical Exam: Constitutional: No acute distress, frail-appearing HEENT: EOMI, PERRLA Respiratory system: Decreased air entry bilaterally, no wheeze, no rhonchi, positive crackles bilateral lower lobes CVS: S1-S2 positive, no murmurs or gallops, right-sided subclavicular incision edema appreciated Abdomen: Soft, nontender, nondistended, positive bowel sounds x4 Extremities: +2 pulses bilaterally radialis/ dorsalis pedis, no cyanosis, no e garcia Neuro: Awake alert oriented x3 Psych: Normal mood and affect G/U: No [place] Skin: no rashes, warm and dry Lymphatic: no cervical or axillary lymphadenopathy Results & Data Results & Data ([facility]) Vital Signs (Past 12 Hours) Vital Signs Pulse Pulse Resp BP Pulse Ox O2 Del Method O2 Flow Rate 07/09/22 06:15 90 25 H 94 07/09/22 06:04 91 H 28 H 95 07/09/22 06:04 93/51 L 07/09/22 06:00 95 H 21 96 07/09/22 05:45 93 H 24 95 07/09/22 05:30 90 30 H 95 07/09/22 05:30 91/52 L 07/09/22 05:15 92 H 22 93 07/09/22 05:00 90 24 93 07/09/22 05:00 87/53 L 07/09/22 04:45 91 H 23 93 07/09/22 04:30 93 H 24 92 07/09/22 04:30 92/52 L 07/09/22 04:15 86 30 H 94 07/09/22 04:00 89 24 95 07/09/22 04:00 97/53 L 07/09/22 03:45 80 22 95 07/09/22 03:30 88 23 94 07/09/22 03:30 89/48 L 07/09/22 03:15 86 26 H 95 07/09/22 03:00 94 H 24 94 07/09/22 03:00 90/51 L 07/09/22 02:45 86 25 H 87 L 07/09/22 02:30 90 25 H 91 07/09/22 02:30 97/53 L 07/09/22 02:15 89 24 93 07/09/22 02:00 89 21 94 07/09/22 02:00 92/53 L 07/09/22 01:45 89 21 96 07/09/22 01:30 89 23 94 07/09/22 01:30 103/56 L 07/09/22 01:15 90 26 H 94 07/09/22 01:00 91 H 24 94 07/09/22 01:00 89/51 L 07/09/22 00:45 87 26 H 93 07/09/22 01:34 90 18 94 Nasal Cannula 1 07/09/22 00:30 88 23 93 07/09/22 00:30 99/52 L 07/09/22 00:15 90 25 H 94 07/09/22 00:00 85 20 93 07/09/22 00:00 96/53 L 07/08/22 23:45 86 26 H 94 07/08/22 23:30 87 28 H 93 07/08/22 23:30 96/55 L 07/08/22 23:15 89 26 H 91 07/08/22 23:00 90 22 91 07/08/22 23:00 96/53 L 07/08/22 22:45 91 H 27 H 92 07/08/22 22:30 90 27 H 93 07/08/22 22:30 90/51 L 07/08/22 22:15 91 H 27 H 94 07/08/22 22:00 105 H 24 91 07/08/22 22:00 114/64 07/08/22 21:45 99 H 29 H 92 07/08/22 21:30 88 29 H 94 07/08/22 21:30 85/51 L 07/08/22 21:15 88 26 H 94 07/08/22 21:00 89 28 H 95 07/09/22 00:24 90 07/08/22 22:29 Nasal Cannula 1 07/08/22 21:00 93/50 L 07/08/22 20:59 90 26 H 95 07/08/22 20:45 96 H 25 H 92 07/08/22 20:30 90 25 H 91 07/08/22 20:30 99/52 L 07/08/22 20:15 91 H 29 H 91 07/08/22 20:00 90 23 93 07/08/22 20:00 92/52 L Laboratory Results 07/09/22 05:06 07/09/22 05:06 Coding Level of Care Code 91211 SUB INP/OBS CARE 3/50MIN Diagnoses Acute heart failure with reduced ejection fraction and diastolic dysfunction I50.41 CAD (coronary artery disease) I25.10 Pneumonia J18.9 Lung mass R91.8 COPD exacerbation J44.1 HTN (hypertension) I10
[2022-07-09] MEDS: APIXABAN 5 MG TABLET PO SCH (08:02)
[2022-07-09] MEDS: CEFEPIME 2,000 MG in SYRINGE 0 ML IV SCH ×2 (08:02→17:39)
[2022-07-09] MEDS: INSULIN ASPART PER UNIT SC SCH ×4 (08:04→20:52)
[2022-07-09] MEDS: PANTOprazole 40 MG in SYRINGE 0 ML IV SCH ×2 (08:28→21:18)
[2022-07-09] MEDS ORDERED: cefTRIAXone SODIUM 1,000 MG in DEXTROSE 5% AD-VAN 50 ML IV SCH (09:00)
[2022-07-09] MEDS ORDERED: methylPREDNISolone 40 MG in SYRINGE 0 ML IV SCH (09:00)
--- NOTE | 2022-07-09 09:16 | XRay Report ---
XR chest 1V portable HISTORY: 66 years-old Male f/u acute shortness of breath COMPARISON: Chest CT and chest radiograph July 08, 2022 TECHNIQUE: AP view of the chest. FINDINGS: Cardiac silhouette is enlarged. Atherosclerosis of the aorta. Emphysema with pulmonary vascular conge stion and interstitial coarsening. Small pleural effusions. Patchy bilateral airspace opacities are a gain noted. Mildly improved aeration of the lungs compared to the prior study. Degenerative changes o f the shoulders and spine. Surgical clips of the right axilla. IMPRESSION: 1. Cardiomegaly with mildly improved pulmonary edema and persistent small pleural effusions. 2. Emphysema with patchy bilateral airspace opacities again noted which may represent alveolar pulmon alondra edema versus pneumonia. ACT 112: Negative or not required by law. The above report was generated using voice recognition software. It may contain grammatical, syntax o r spelling errors. Electronically signed by: Torres Marshall M.D. 07/09/2022 9:14 AM
--- NOTE | 2022-07-09 09:39 | Hospitalist Progress Note ---
Date of Service July 09, 2022 Assessment & Plan (1) Respiratory failure with hypoxia and hypercapnia: (2) Pulmonary edema: (3) Pneumonia: (4) CAD (coronary artery disease): Plan: This is a 66-year-old male who presents with acute shortness of breath. 1. Acute respiratory failure, most likely secondary to sasaf-av-mtoefso systolic CHF, and multifocal pna Last echo was in last admission with 20-25% EF. Received a dose of Lasix IV 40 in the ER. Continued w/ IV Lasix 40 b.i.d. Hold Entresto and spironolactone d/t hypotension. Daily weights, I's and O's. Follow repeat echo. Echo Compared with study dated May 31, 2022, LV systolic function has significantly improved. LV systolic function is mildly reduced EF 45 to 50%. There is moderate mitral regurg. Diastolic dysfunction grade II. Patient on nitro drip in the ER but BP dropped. Transferred to ICU for possible pressor support and need for diuresis. We will try to wean off the BiPAP. Pt was on NC but did not tolerate small ambulation - back on BiPAP. Cardiology consulted for further recommendations. 2. PNA, Poss. mild chronic obstructive pulmonary disease exacerbation. The patient has also history of chronic obstructive pulmonary disease. Chest CT obtained - multifocal pna, pt has leukocytosis. Empirically treating for chronic obstructive pulmonary disease exacerbation with IV Solu-Medrol, nebs around the clock and p.r.n., and doxycycline for now. We will repeat ABG. Continue antibiotics for pna - cefepime + doxy For COPD - on Incruse at home - added Brovana and Budesonide by pulmonary/critical care team 3. Diabetes Hyperglycemic on admission, received IV insulin in ER. We will hold Jardiance. Placed on Lantus insulin sliding scale. Follow the blood sugars while the patient is on insulin. Glycemic - pharmacy consulted 4. Atrial fibrillation - was diagnosed in last admission to [place], on amiodarone and Eliquis -eliquis on hold for Hgb drop 5. History of multivessel CAD. As per discharge from [place], status post multivessel PCI, on Plavix and statin. Repeated echocardiogram, as above Cardiology following 6. Mild elevation of troponin, mostly demand ischemia. Follow repeat enzymes. 7. Hypertension: On Entresto, on hold for now. We will monitor blood pressure. BP on low side 8. Gastroesophageal reflux disease: On Protonix. 9. Hx of tobacco abuse and history of alcohol abuse. DVT ppx On Eliquis on hold d/t drop in Hgb DISPOSITION: Closely monitor in ICU. Level 1 full code. PT/OT. Social service to help with discharge planning. Admission and Anticipated Discharge Date Admission Date: July 08, 2022 Subjective Patient seen in follow-up of hypotension, respiratory failure, heart failure exacerbation, pneumonia. Recent history of complicated hospital course. Per report, patient was on supplemental oxygen via nasal cannula, however after small ambulation to bathroom, patient became hypoxic. Placed on BiPAP. On my exam, patient is on BiPAP, full review of system little difficult to obtain. However patient reports feeling okay. Denies any chest pain. Denies abdominal pain. Patient cannot speak much over BiPAP. Review of Systems Review of Systems: All systems reviewed & are unremarkable except as noted in Subjective Physical Exam Physical Exam: GENERAL: thin and frail, currently not in acute distress, on BiPAP HEENT: Pupils equal, round and reactive to light. No facial droop NECK: No neck masses seen. CARDIOVASCULAR: S1 and S2 heard. Regular rate and rhythm. No murmur, no gallop. RESPIRATORY: Normal AP diameter. No accessory muscle use.+ crackles ABDOMEN: Soft, bowel sounds present, nontender, no distention. NEURO: Alert and awake, somewhat hard of hearing. No facial droop. Obeys simple commands. Moves extremities. EXTREMITIES: No obvious edema or erythema seen. Results & Data Results & Data ([facility]) Vital Signs (Past 12 Hours) Vital Signs Temp Pulse Pulse Resp BP Pulse Ox O2 Del Method 07/09/22 09:00 93 H 24 100 BiPAP 07/09/22 09:00 98/60 L 07/09/22 08:30 100 H 25 H 100 07/09/22 08:00 97 H 20 99 07/09/22 08:00 36.7 C 105/64 07/09/22 07:30 98 H 20 95 Nasal Cannula 07/09/22 07:30 111/58 L 07/09/22 07:00 100 H 25 H 91 07/09/22 07:00 106/64 07/09/22 07:52 Nasal Cannula 07/09/22 08:46 111 H 27 H 93 07/09/22 07:58 100 H 22 94 Nasal Cannula 07/09/22 06:15 90 25 H 94 07/09/22 06:04 91 H 28 H 95 07/09/22 06:04 93/51 L 07/09/22 06:00 95 H 21 96 07/09/22 05:45 93 H 24 95 07/09/22 05:30 90 30 H 95 07/09/22 05:30 91/52 L 07/09/22 05:15 92 H 22 93 07/09/22 05:00 90 24 93 07/09/22 05:00 87/53 L 07/09/22 04:45 91 H 23 93 07/09/22 04:30 93 H 24 92 07/09/22 04:30 92/52 L 07/09/22 04:15 86 30 H 94 07/09/22 04:00 89 24 95 07/09/22 04:00 97/53 L 07/09/22 03:45 80 22 95 07/09/22 03:30 88 23 94 07/09/22 03:30 89/48 L 07/09/22 03:15 86 26 H 95 07/09/22 03:00 94 H 24 94 07/09/22 03:00 90/51 L 07/09/22 02:45 86 25 H 87 L 07/09/22 02:30 90 25 H 91 07/09/22 02:30 97/53 L 07/09/22 02:15 89 24 93 07/09/22 02:00 89 21 94 07/09/22 02:00 92/53 L 07/09/22 01:45 89 21 96 07/09/22 01:30 89 23 94 07/09/22 01:30 103/56 L 07/09/22 01:15 90 26 H 94 07/09/22 01:00 91 H 24 94 07/09/22 01:00 89/51 L 07/09/22 00:45 87 26 H 93 07/09/22 01:34 90 18 94 Nasal Cannula 07/09/22 00:30 88 23 93 07/09/22 00:30 99/52 L 07/09/22 00:15 90 25 H 94 07/09/22 00:00 85 20 93 07/09/22 00:00 96/53 L 07/08/22 23:45 86 26 H 94 07/08/22 23:30 87 28 H 93 07/08/22 23:30 96/55 L 07/08/22 23:15 89 26 H 91 07/08/22 23:00 90 22 91 07/08/22 23:00 96/53 L 07/08/22 22:45 91 H 27 H 92 07/08/22 22:30 90 27 H 93 07/08/22 22:30 90/51 L 07/08/22 22:15 91 H 27 H 94 07/08/22 22:00 105 H 24 91 07/08/22 22:00 114/64 07/08/22 21:45 99 H 29 H 92 07/09/22 00:24 90 07/08/22 22:29 Nasal Cannula O2 Flow Rate FiO2 07/09/22 09:00 07/09/22 09:00 07/09/22 08:30 07/09/22 08:00 07/09/22 08:00 07/09/22 07:30 2 07/09/22 07:30 07/09/22 07:00 07/09/22 07:00 07/09/22 07:52 2 07/09/22 08:46 40 07/09/22 07:58 4 07/09/22 06:15 07/09/22 06:04 07/09/22 06:04 07/09/22 06:00 07/09/22 05:45 07/09/22 05:30 07/09/22 05:30 07/09/22 05:15 07/09/22 05:00 07/09/22 05:00 07/09/22 04:45 07/09/22 04:30 07/09/22 04:30 07/09/22 04:15 07/09/22 04:00 07/09/22 04:00 07/09/22 03:45 07/09/22 03:30 07/09/22 03:30 07/09/22 03:15 07/09/22 03:00 07/09/22 03:00 07/09/22 02:45 07/09/22 02:30 07/09/22 02:30 07/09/22 02:15 07/09/22 02:00 07/09/22 02:00 07/09/22 01:45 07/09/22 01:30 07/09/22 01:30 07/09/22 01:15 07/09/22 01:00 07/09/22 01:00 07/09/22 00:45 07/09/22 01:34 1 07/09/22 00:30 07/09/22 00:30 07/09/22 00:15 07/09/22 00:00 07/09/22 00:00 07/08/22 23:45 07/08/22 23:30 07/08/22 23:30 07/08/22 23:15 07/08/22 23:00 07/08/22 23:00 07/08/22 22:45 07/08/22 22:30 07/08/22 22:30 07/08/22 22:15 07/08/22 22:00 07/08/22 22:00 07/08/22 21:45 07/09/22 00:24 07/08/22 22:29 1 Laboratory Results 07/09/22 07/09/22 07/09/22 Range/Units 07:39 05:06 05:06 WBC 14.60 H (4.8-10.8) K/ul RBC 2.95 L (4.63-6.08) M/uL Hgb 8.8 L (14.0-18.0) g/dl Hct 27.7 L (40.1-51.0) % MCV 93.9 (80.0-100.0) fL MCH 29.8 (25.0-34.0) pg MCHC 31.8 L (32.0-36.0) g/dL RDW Std Deviation 54.0 H (36.4-46.3) fL RDW Coeff of Gordon 15.8 H (11.5-14.5) % Plt Count 294 (130-400) K/uL MPV 10.3 (9.4-12.4) fL Sodium 135 L (136-145) mmol/L Potassium 3.1 L (3.5-5.1) mmol/L Chloride 103 (98-107) mmol/L Carbon Dioxide 27 (21-32) mmol/L Anion Gap 5 (3-11) BUN 18 (6-23) mg/dl Creatinine 0.77 (0.6-1.4) mg/dl Est Cr Clr Drug Dosing 65.3 ml/min Est GFR ( Amer) 108.8 ml/min Est GFR (Non-Af Amer) 93.9 ml/min BUN/Creatinine Ratio 23.4 H (10-20) Glucose 110 H (70-99(Fasting)) mg/dl POC Glucose 139 H (70-99) mg/dl Calcium 7.9 L (8.5-10.1) mg/dl Phosphorus 3.2 (2.5-4.9) mg/dl Magnesium 2.3 (1.7-2.4) mg/dl Troponin I High Sens (0-20) pg/ml Procalcitonin (0-0.5) ng/ml 07/08/22 07/08/22 07/08/22 Range/Units 20:35 15:25 14:19 WBC (4.8-10.8) K/ul RBC (4.63-6.08) M/uL Hgb (14.0-18.0) g/dl Hct (40.1-51.0) % MCV (80.0-100.0) fL MCH (25.0-34.0) pg MCHC (32.0-36.0) g/dL RDW Std Deviation (36.4-46.3) fL RDW Coeff of Gordon (11.5-14.5) % Plt Count (130-400) K/uL MPV (9.4-12.4) fL Sodium (136-145) mmol/L Potassium (3.5-5.1) mmol/L Chloride (98-107) mmol/L Carbon Dioxide (21-32) mmol/L Anion Gap (3-11) BUN (6-23) mg/dl Creatinine (0.6-1.4) mg/dl Est Cr Clr Drug Dosing ml/min Est GFR ( Amer) ml/min Est GFR (Non-Af Amer) ml/min BUN/Creatinine Ratio (10-20) Glucose (70-99(Fasting)) mg/dl POC Glucose 172 H 96 (70-99) mg/dl Calcium (8.5-10.1) mg/dl Phosphorus 3.5 (2.5-4.9) mg/dl Magnesium (1.7-2.4) mg/dl Troponin I High Sens (0-20) pg/ml Procalcitonin (0-0.5) ng/ml 07/08/22 07/08/22 07/08/22 Range/Units 14:19 07:24 02:25 WBC (4.8-10.8) K/ul RBC (4.63-6.08) M/uL Hgb (14.0-18.0) g/dl Hct (40.1-51.0) % MCV (80.0-100.0) fL MCH (25.0-34.0) pg MCHC (32.0-36.0) g/dL RDW Std Deviation (36.4-46.3) fL RDW Coeff of Gordon (11.5-14.5) % Plt Count (130-400) K/uL MPV (9.4-12.4) fL Sodium (136-145) mmol/L Potassium (3.5-5.1) mmol/L Chloride (98-107) mmol/L Carbon Dioxide (21-32) mmol/L Anion Gap (3-11) BUN (6-23) mg/dl Creatinine (0.6-1.4) mg/dl Est Cr Clr Drug Dosing ml/min Est GFR ( Amer) ml/min Est GFR (Non-Af Amer) ml/min BUN/Creatinine Ratio (10-20) Glucose (70-99(Fasting)) mg/dl POC Glucose 46 L* (70-99) mg/dl Calcium (8.5-10.1) mg/dl Phosphorus (2.5-4.9) mg/dl Magnesium (1.7-2.4) mg/dl Troponin I High Sens 33.3 H D (0-20) pg/ml Procalcitonin 0.05 (0-0.5) ng/ml Medications Administered Current Inpatient Medications Acetaminophen (Acetaminophen 325 Mg Tab) 650 mg PO Q4H PRN PRN Reason: Pain or Fever Stop: 08/07/22 06:11 Albuterol (Albuterol Hfa 8 Gm Inhaler) 2 puffs INH Q4H PRN PRN Reason: Shortness Of Breath Or Wheezin Stop: 08/07/22 06:11 Amiodarone HCl (Amiodarone 200 Mg Tab) 200 mg PO DAILY FRANCOIS Stop: 08/07/22 08:59 Last Admin: 07/09/22 07:50 Dose: 200 mg Apixaban (Apixaban 5 Mg Tablet) 5 mg PO BID FRANCOIS Stop: 08/07/22 08:59 Last Admin: 07/09/22 08:02 Dose: Not Given Atorvastatin Calcium (Atorvastatin 40 Mg Tab) 80 mg PO DAILY FRANCOIS Stop: 08/07/22 08:59 Last Admin: 07/09/22 07:50 Dose: 80 mg Bisacodyl (Bisacodyl 10 Mg Supp) 10 mg AK DAILY PRN PRN Reason: Constipation Stop: 08/07/22 06:11 Budesonide (Budesonide 0.5 Mg/2 Ml Vial (Pulmicort)) 0.5 mg NEB BIDR [facility] Stop: 08/08/22 18:59 Clopidogrel Bisulfate (Clopidogrel Bisulfate 75 Mg Tab) 75 mg PO DAILY FRANCOIS Stop: 08/07/22 08:59 Last Admin: 07/09/22 07:50 Dose: 75 mg Dextrose (Dextrose 50% 50 Ml Syringe) 25 - 50 ml IV UD PRN; Protocol PRN Reason: Hypoglycemia Protocol Stop: 08/07/22 06:11 Docusate Sodium (Docusate Sodium 100 Mg Cap) 100 mg PO BID FRANCOIS Stop: 08/07/22 08:59 Last Admin: 07/08/22 20:39 Dose: 100 mg Doxycycline Hyclate (Doxycycline Hyclate 100 Mg Cap) 100 mg PO BID FRANCOIS Stop: 07/15/22 06:59 Last Admin: 07/09/22 07:50 Dose: 100 mg Formoterol Fumarate (Formoterol 20 Mcg/2 Ml Vial) 20 mcg INH BIDR FRANCOIS Stop: 08/08/22 18:59 Furosemide (Furosemide 40 Mg/4 Ml Vial) 40 mg IV BID17 FRANCOIS Stop: 08/07/22 08:59 Glucagon (Glucagon For Inj 1 Mg Vial) 1 mg SQ UD PRN; Protocol PRN Reason: Hypoglycemia Protocol Stop: 08/07/22 06:11 Glucose (Glucose 40% Gel 15 Gm Tube) 15 - 30 gm PO UD PRN; Protocol PRN Reason: Hypoglycemia Protocol Stop: 08/07/22 06:11 Glucose (Glucose 10 Tab/Tube) 4 - 8 tab PO UD PRN; Protocol PRN Reason: Hypoglycemia Treatment Stop: 08/07/22 06:11 Norepinephrine Bitartrate (Levophed/D5w) 4 mg in 250 mls @ 9.581 mls/hr IV .Q24H [facility]; Protocol Stop: 08/07/22 08:14 Cefepime HCl 2,000 mg/ Syringe 20 mls @ 5 mls/min IV Q8H [facility]; Protocol Stop: 07/10/22 16:59 Last Admin: 07/09/22 08:02 Dose: 5 mls/min Pantoprazole Sodium 40 mg/ (Syringe) 10 mls @ 5 mls/min IV BID [facility] Stop: 08/08/22 08:59 Last Admin: 07/09/22 08:28 Dose: 5 mls/min Insulin Aspart (Insulin Aspart Per Unit) 0 units SC ACHS [facility] Stop: 08/07/22 16:29 Last Admin: 07/09/22 08:04 Dose: Not Given Ipratropium Lejunior (Ipratropium Lejunior Neb Soln 0.02% 2.5 Ml Vial) 0.5 mg INH Q6R [facility] Stop: 08/07/22 06:59 Last Admin: 07/09/22 07:58 Dose: 0.5 mg Levalbuterol HCl (Levalbuterol 1.25mg/0.5ml Neb) 1.25 mg INH Q6R [facility] Stop: 08/07/22 06:59 Last Admin: 07/09/22 07:58 Dose: 1.25 mg Levalbuterol HCl (Levalbuterol 1.25mg/0.5ml Neb) 1.25 mg NEB Q2H PRN; Protocol PRN Reason: Shortness Of Breath Or Wheezing Stop: 08/07/22 06:11 Miscellaneous (Carbohydrates For Hypoglycemia ) 15 - 30 gm PO UD PRN PRN Reason: Hypoglycemia Protocol Stop: 08/07/22 06:11 Miscellaneous Information (Pharmacy Glycemic Mgmt Consult) 1 each N/A UD PRN PRN Reason: Consult Stop: 08/07/22 06:11 Nitroglycerin (Nitroglycerin Sl 0.4 Mg/Tab Tab) 0.4 mg SL UD PRN PRN Reason: Chest Pain Stop: 08/07/22 06:11 Polyethylene Glycol (Polyethylene (Miralax) 17 Gm Pack) 17 gm PO QDL PRN PRN Reason: Constipation Stop: 08/07/22 06:11 Sacubitril/Valsartan (Valsartan/Sacubitril 26/24mg Tab) 1 tab PO BID FRANCOIS Stop: 08/07/22 08:59 Senna/Docusate Sodium (Docusate Sodium/Senna 50/8.6mg Tab) 1 tab PO QDL PRN PRN Reason: Constipation Stop: 08/07/22 06:11 Sodium Biphosphate/Sodium Phosphate (Sod Phosphate/Sod Biphosphate Enema 132 Ml Btl) 118 ml AK DAILY PRN PRN Reason: Constipation Stop: 08/07/22 06:11 Spironolactone (Spironolactone 25 Mg Tab) 25 mg PO DAILY FRANCOIS Stop: 08/07/22 08:59 Umeclidinium Lejunior (Umeclidinium Lejunior 62.5mcg/Blister 7 Puffs/Inhaler) 1 puffs INH DAILY FRANCOIS Stop: 08/07/22 08:59 Last Admin: 07/09/22 07:50 Dose: 1 puffs (1) Respiratory failure with hypoxia and hypercapnia Chronicity: acute Qualified Code(s): J96.01 - Acute respiratory failure with hypoxia; J96.02 - Acute respiratory failure with hypercapnia; J96.02 - Acute respiratory failure with hypercapnia (2) Pulmonary edema Chronicity: acute Qualified Code(s): J81.0 - Acute pulmonary edema
[2022-07-09] MEDS: DOCUSATE SODIUM 100 MG CAP PO SCH ×2 (11:40→20:42)
[2022-07-09] MEDS ORDERED: FUROSEMIDE 40 MG/4 ML VIAL IV ONE (12:07)
[2022-07-09 12:23] LABS: Hematocrit (blood only) 31.7 % (40.1-51.0)
[2022-07-09 13:00] LABS: BUN Creatinine Ratio 24.7 (10-20); Calcium 8.6 mg/dl (8.5-10.1); Creatinine Clr Calc Pharmacy 57.6 ml/min; Est GFR (African American) 104.5 ml/min; Est GFR (Non-African American) 90.2 ml/min; Potassium 4.3 mmol/L (3.5-5.1)
--- NOTE | 2022-07-09 15:49 | Cardiology Progress Note ---
Date of Service July 09, 2022 Assessment & Plan (1) Acute heart failure with reduced ejection fraction and diastolic dysf unction: (2) Acute respiratory failure with hypoxia: (3) Lung mass: (4) CAD (coronary artery disease): (5) Pneumonia: Plan Patient with [place] [facility] [place] 07[place]02 after multivessel CAD s/p multivessel intervention/PCI, cardiogenic shock requiring pressors, mechanical ventilation, IAPB and Impella device complicated also by m ultifocal pneumonia/sepsis. Patient had been doing better at rehab when he developed acute respiratory distress with hypoxia. Symptoms improving on admission after IV diuretics, nebulizers, antibiotics possible pneumonia and lung mass noted on chest CT. Troponin only minimally elevated. he has no symptoms to suggest ACS. EKG without acute changes on admission. 2D echocardiogram revealed mildly reduced LV systolic function with moderate hypokinesis of the basal inferior wall along with mild diffuse hypokinesis and moderate mitral regurgitation Continue plavix given recent coronary interventions. Continue eliquis. Continue amiodarone for now. Need to consider amio toxicity with recent worsening of his pulmonary and respiratory status? However it seems patient had abnormal chest Ct [place] [facility] to amiodarone. Would likely benefit from the addition of metoprolol succinate once BP improves Continue atorvastatin Entresto and spironolactone on hold due to hypotension. Continue furosemide 40 mg IV as BP allows. Monitor I+O's Supplement Potassium. Admission and Anticipated Discharge Date Admission Date: July 08, 2022 Subjective Patient seen and examined. Chart reviewed. Telemetry reviewed. Review of Systems Review of Systems: All systems reviewed & are unremarkable except as noted in HPI & below Physical Exam Physical Exam: General: Awake, alert and oriented x 3. No acute distress. On BiPAP HEENT: Normocephalic, atraumatic. Pupils equal, round and reactive to light and accommodation. Extraocular muscles are intact. Anicteric sclera. Moist mucous membranes. Neck: No JVD. No bruit. Cardiovascular: Regular. Positive S-4. Normal S-1 and S-2. No S-3. 3/6 holosystolic ejection murmur, left sternal border, mid-clavicular line with radiation to the axilla. No rubs. Pulmonary: Coarse breath sounds diffusely with reduced lung sounds in the bilateral bases. Positive for crackles Abdomen: Bowel sounds x 4, soft. No rebound, guarding or tenderness. No organomegaly. Extremities: No clubbing, cyanosis or edema. +2 pedal pulses bilaterally. Skin: Warm and dry. Results & Data ([facility]) Vital Signs (Past 12 Hours) Vital Signs Temp Pulse Pulse Resp BP Pulse Ox O2 Del Method 07/09/22 13:30 96 H 26 H 98 07/09/22 13:00 97 H 25 H 95 07/09/22 13:00 92/61 L 07/09/22 12:30 97 H 27 H 99 07/09/22 12:00 104 H 27 H 99 07/09/22 12:00 114/75 07/09/22 11:30 105 H 28 H 91 07/09/22 11:00 98 H 25 H 98 07/09/22 11:00 108/68 BiPAP 07/09/22 10:30 104 H 26 H 93 07/09/22 10:00 94 H 20 97 07/09/22 10:00 97/64 L 07/09/22 09:30 91 H 22 99 07/09/22 11:00 07/09/22 11:47 109 H 30 H 98 07/09/22 11:47 109 H 30 H 98 BiPAP 07/09/22 11:19 104 H 27 H 96 07/09/22 09:00 93 H 24 100 BiPAP 07/09/22 09:00 98/60 L 07/09/22 08:30 100 H 25 H 100 07/09/22 08:00 97 H 20 99 07/09/22 08:00 36.7 C 105/64 07/09/22 07:30 98 H 20 95 Nasal Cannula 07/09/22 07:30 111/58 L 07/09/22 07:00 100 H 25 H 91 07/09/22 07:00 106/64 07/09/22 07:52 Nasal Cannula 07/09/22 08:46 111 H 27 H 93 07/09/22 07:58 100 H 22 94 Nasal Cannula 07/09/22 06:15 90 25 H 94 07/09/22 06:04 91 H 28 H 95 07/09/22 06:04 93/51 L 07/09/22 06:00 95 H 21 96 07/09/22 05:45 93 H 24 95 07/09/22 05:30 90 30 H 95 07/09/22 05:30 91/52 L 07/09/22 05:15 92 H 22 93 07/09/22 05:00 90 24 93 07/09/22 05:00 87/53 L 07/09/22 04:45 91 H 23 93 07/09/22 04:30 93 H 24 92 07/09/22 04:30 92/52 L 07/09/22 04:15 86 30 H 94 07/09/22 04:00 89 24 95 07/09/22 04:00 97/53 L 07/09/22 03:45 80 22 95 O2 Del Method O2 Flow Rate FiO2 07/09/22 13:30 07/09/22 13:00 07/09/22 13:00 07/09/22 12:30 07/09/22 12:00 07/09/22 12:00 07/09/22 11:30 07/09/22 11:00 07/09/22 11:00 0.5 07/09/22 10:30 07/09/22 10:00 07/09/22 10:00 07/09/22 09:30 07/09/22 11:00 BiPAP 07/09/22 11:47 50 07/09/22 11:47 50 07/09/22 11:19 35 07/09/22 09:00 07/09/22 09:00 07/09/22 08:30 07/09/22 08:00 07/09/22 08:00 07/09/22 07:30 2 07/09/22 07:30 07/09/22 07:00 07/09/22 07:00 07/09/22 07:52 2 07/09/22 08:46 40 07/09/22 07:58 4 07/09/22 06:15 07/09/22 06:04 07/09/22 06:04 07/09/22 06:00 07/09/22 05:45 07/09/22 05:30 07/09/22 05:30 07/09/22 05:15 07/09/22 05:00 07/09/22 05:00 07/09/22 04:45 07/09/22 04:30 07/09/22 04:30 07/09/22 04:15 07/09/22 04:00 07/09/22 04:00 07/09/22 03:45
[2022-07-09] MEDS: NOREPINEPHRINE/D5W 4 MG/250 ML PLCT IV SCH (17:37)
[2022-07-09] MEDS: FORMOTEROL 20 MCG/2 ML VIAL INH SCH (20:11)
[2022-07-09] MEDS: BUDESONIDE 0.5 MG/2 ML VIAL (PULMICORT) NEB SCH (20:11)
[2022-07-10] MEDS: CEFEPIME 2,000 MG in SYRINGE 0 ML IV SCH ×2 (00:46→07:47)
[2022-07-10] MEDS: IPRATROPIUM BROMIDE NEB SOLN 0.02% 2.5 ML VIAL INH SCH ×4 (01:48→19:31)
[2022-07-10] MEDS: LEVALBUTEROL 1.25MG/0.5ML NEB INH SCH ×4 (01:48→19:31)
[2022-07-10 05:07] LABS: Hematocrit (blood only) 29.1 % (40.1-51.0); Hemoglobin 9.3 g/dl (14.0-18.0); Mean Corpuscular Hemoglobin 30.1 pg (25.0-34.0); Mean Corpuscular Volume 94.2 fL (80.0-100.0); Mean Platelet Volume 10.3 fL (9.4-12.4); Platelet Count 278 K/uL (130-400); RDW Coefficient of Variation 16.1 % (11.5-14.5); RDW Standard Deviation 53.9 fL (36.4-46.3); Red Blood Count 3.09 M/uL (4.63-6.08); White Blood Count 18.03 K/ul (4.8-10.8)
[2022-07-10 05:43] LABS: BUN Creatinine Ratio 31.1 (10-20); Calcium 8.2 mg/dl (8.5-10.1); Creatinine Clr Calc Pharmacy 66.2 ml/min; Est GFR (African American) 110.6 ml/min; Est GFR (Non-African American) 95.4 ml/min; Phosphorus 2.7 mg/dl (2.5-4.9); Potassium 3.9 mmol/L (3.5-5.1)
[2022-07-10] MEDS: BUDESONIDE 0.5 MG/2 ML VIAL (PULMICORT) NEB SCH ×2 (07:44→19:31)
[2022-07-10] MEDS: FORMOTEROL 20 MCG/2 ML VIAL INH SCH ×2 (07:44→19:31)
[2022-07-10] MEDS: AMIODARONE 200 MG TAB PO SCH (07:46)
[2022-07-10] MEDS: CLOPIDOGREL BISULFATE 75 MG TAB PO SCH (07:46)
[2022-07-10] MEDS: PANTOprazole 40 MG in SYRINGE 0 ML IV SCH ×2 (07:47→20:26)
[2022-07-10] MEDS: ATORVASTATIN 40 MG TAB PO SCH (07:47)
[2022-07-10] MEDS: DOCUSATE SODIUM 100 MG CAP PO SCH ×2 (07:47→20:27)
[2022-07-10] MEDS: NOREPINEPHRINE/D5W 4 MG/250 ML PLCT IV SCH (07:48)
[2022-07-10] MEDS: INSULIN ASPART PER UNIT SC SCH ×4 (07:48→20:29)
[2022-07-10] MEDS: DOXYCYCLINE HYCLATE 100 MG CAP PO SCH ×2 (07:49→20:26)
[2022-07-10] MEDS ORDERED: FUROSEMIDE INJ 20 MG/2 ML VIAL IV ONE ×2 (08:09→15:24)
[2022-07-10] MEDS ORDERED: POTASSIUM CHLORIDE CRTAB 20 MEQ TABCR PO STA (08:09)
[2022-07-10] MEDS ORDERED: MAGNESIUM SULFATE / D5W 1 GM/100 ML BAG IV ONE (08:10)
--- NOTE | 2022-07-10 08:25 | Hospitalist Progress Note ---
Date of Service July 10, 2022 Assessment & Plan (1) Respiratory failure with hypoxia and hypercapnia: (2) Pulmonary edema: (3) Pneumonia: (4) CAD (coronary artery disease): Plan: This is a 66-year-old male who presents with acute shortness of breath. 1. Acute respiratory failure, most likely secondary to [id number] systolic CHF, and multifocal pna Last echo was in last admission with 20-25% EF. Received a dose of Lasix IV 40 in the ER. Continued w/ IV Lasix as BP tolerates Hold Entresto and spironolactone d/t hypotension. Daily weights, I's and O's. Follow repeat echo. Echo Compared with study dated May 31, 2022, LV systolic function has significantly improved. LV systolic function is mildly reduced EF 45 to 50%. There is moderate mitral regurg. Diastolic dysfunction grade II. Patient on nitro drip in the ER but BP dropped. Transferred to ICU for possible pressor support and need for diuresis. 07/10 Currently off the BiPAP. Pt is on 3 L NC. Per RN, patient gets winded easily, on BiPAP yesterday Cardiology consulted for further recommendations. 2. PNA, Poss. mild chronic obstructive pulmonary disease exacerbation. The patient has also history of chronic obstructive pulmonary disease. Chest CT obtained - multifocal pna, pt has leukocytosis. Empirically treating for chronic obstructive pulmonary disease exacerbation with IV Solu-Medrol, nebs around the clock and p.r.n. Continue antibiotics for pna - cefepime + doxy For COPD - on Incruse at home - added Brovana and Budesonide by pulmonary/critical care team 3. Diabetes Hyperglycemic on admission, received IV insulin in ER. We will hold Jardiance. Placed on Lantus insulin sliding scale. Follow the blood sugars while the patient is on insulin. Glycemic - pharmacy consulted 4. Atrial fibrillation - was diagnosed in last admission to [place], on amiodarone and Eliquis - eliquis resumed, hemoglobin stable 5. History of multivessel CAD. As per discharge from [place], status post multivessel PCI, on Plavix and statin. Repeated echocardiogram, as above Cardiology following 6. Mild elevation of troponin, mostly demand ischemia. Cardiology following 7. Hypertension: On Entresto, on hold for now. We will monitor blood pressure. BP on low side 8. Gastroesophageal reflux disease: On Protonix. 9. Hx of tobacco abuse and history of alcohol abuse. DVT ppx: Eliquis DISPOSITION:ICU -> PCU CODE: full code. PT/OT. Social service to help with discharge planning. Admission and Anticipated Discharge Date Admission Date: July 08, 2022 Subjective Patient seen in follow-up of hypotension, respiratory failure, heart failure exacerbation, pneumonia. Recent history of complicated hospital course. Currently sitting up in bed, on supplemental oxygen, 3L Reports that he is okay, however per nursing staff patient gets winded easily, yesterday required BiPAP Denies any chest pain. Denies abdominal pain. Review of Systems Review of Systems: All systems reviewed & are unremarkable except as noted in Subjective Physical Exam Physical Exam: GENERAL: thin and frail, currently not in acute distress, on 3L HEENT: Pupils equal, round and reactive to light. No facial droop NECK: No neck masses seen. CARDIOVASCULAR: S1 and S2 heard. Regular rate and rhythm. No murmur, no gallop. RESPIRATORY: Normal AP diameter. No accessory muscle use.+ crackles ABDOMEN: Soft, bowel sounds present, nontender, no distention. NEURO: Alert and awake, somewhat hard of hearing. No facial droop. Obeys simple commands. Moves extremities. EXTREMITIES: No obvious edema or erythema seen. Results & Data Results & Data ([facility]) Vital Signs (Past 12 Hours) Vital Signs Temp Pulse Pulse Resp BP Pulse Ox O2 Del Method 07/10/22 07:43 101 H 22 96 Oxymask 07/10/22 05:00 88 28 H 93 07/10/22 05:00 92/59 L 07/10/22 04:00 36.7 C 07/10/22 04:00 89 26 H 99 BiPAP 07/10/22 04:00 92/59 L 07/10/22 03:00 99 H 26 H 95 07/10/22 03:00 128/76 07/10/22 02:00 95 H 25 H 96 07/10/22 02:00 104/68 07/10/22 01:00 88 24 98 07/10/22 01:00 104/65 07/10/22 00:00 83 28 H 98 07/10/22 00:00 90/59 L 07/10/22 00:00 36.6 C 01/07/23 23:00 85 28 H 100 07/09/22 23:00 89/59 L 07/09/22 22:00 88 26 H 96 07/09/22 22:00 89/58 L 07/09/22 22:53 84 07/09/22 20:40 112 H 30 H 93 07/09/22 21:00 104 H 30 H 97 07/09/22 21:00 117/77 O2 Flow Rate FiO2 07/10/22 07:43 6 07/10/22 05:00 07/10/22 05:00 07/10/22 04:00 07/10/22 04:00 07/10/22 04:00 07/10/22 03:00 07/10/22 03:00 07/10/22 02:00 07/10/22 02:00 07/10/22 01:00 07/10/22 01:00 07/10/22 00:00 07/10/22 00:00 07/10/22 00:00 07/09/22 23:00 07/09/22 23:00 07/09/22 22:00 07/09/22 22:00 07/09/22 22:53 07/09/22 20:40 30 07/09/22 21:00 07/09/22 21:00 Laboratory Results 07/10/22 07/10/22 07/10/22 Range/Units 12:38 11:30 07:33 WBC (4.8-10.8) K/ul RBC (4.63-6.08) M/uL Hgb 9.7 L (14.0-18.0) g/dl Hct 30.2 L (40.1-51.0) % MCV (80.0-100.0) fL MCH (25.0-34.0) pg MCHC (32.0-36.0) g/dL RDW Std Deviation (36.4-46.3) fL RDW Coeff of Gordon (11.5-14.5) % Plt Count (130-400) K/uL MPV (9.4-12.4) fL Sodium (136-145) mmol/L Potassium (3.5-5.1) mmol/L Chloride (98-107) mmol/L Carbon Dioxide (21-32) mmol/L Anion Gap (3-11) BUN (6-23) mg/dl Creatinine (0.6-1.4) mg/dl Est Cr Clr Drug Dosing ml/min Est GFR ( Amer) ml/min Est GFR (Non-Af Amer) ml/min BUN/Creatinine Ratio (10-20) Glucose (70-99(Fasting)) mg/dl POC Glucose 113 H 89 (70-99) mg/dl Calcium (8.5-10.1) mg/dl Phosphorus (2.5-4.9) mg/dl Magnesium (1.7-2.4) mg/dl 07/10/22 07/10/22 07/09/22 Range/Units 04:49 04:49 20:48 WBC 18.03 H (4.8-10.8) K/ul RBC 3.09 L (4.63-6.08) M/uL Hgb 9.3 L (14.0-18.0) g/dl Hct 29.1 L (40.1-51.0) % MCV 94.2 (80.0-100.0) fL MCH 30.1 (25.0-34.0) pg MCHC 32.0 (32.0-36.0) g/dL RDW Std Deviation 53.9 H (36.4-46.3) fL RDW Coeff of Gordon 16.1 H (11.5-14.5) % Plt Count 278 (130-400) K/uL MPV 10.3 (9.4-12.4) fL Sodium 137 (136-145) mmol/L Potassium 3.9 (3.5-5.1) mmol/L Chloride 104 (98-107) mmol/L Carbon Dioxide 27 (21-32) mmol/L Anion Gap 6 (3-11) BUN 23 (6-23) mg/dl Creatinine 0.74 (0.6-1.4) mg/dl Est Cr Clr Drug Dosing 66.2 ml/min Est GFR ( Amer) 110.6 ml/min Est GFR (Non-Af Amer) 95.4 ml/min BUN/Creatinine Ratio 31.1 H (10-20) Glucose 106 H (70-99(Fasting)) mg/dl POC Glucose 183 H (70-99) mg/dl Calcium 8.2 L (8.5-10.1) mg/dl Phosphorus 2.7 (2.5-4.9) mg/dl Magnesium 2.0 (1.7-2.4) mg/dl 07/09/22 Range/Units 16:33 WBC (4.8-10.8) K/ul RBC (4.63-6.08) M/uL Hgb (14.0-18.0) g/dl Hct (40.1-51.0) % MCV (80.0-100.0) fL MCH (25.0-34.0) pg MCHC (32.0-36.0) g/dL RDW Std Deviation (36.4-46.3) fL RDW Coeff of Gordon (11.5-14.5) % Plt Count (130-400) K/uL MPV (9.4-12.4) fL Sodium (136-145) mmol/L Potassium (3.5-5.1) mmol/L Chloride (98-107) mmol/L Carbon Dioxide (21-32) mmol/L Anion Gap (3-11) BUN (6-23) mg/dl Creatinine (0.6-1.4) mg/dl Est Cr Clr Drug Dosing ml/min Est GFR ( Amer) ml/min Est GFR (Non-Af Amer) ml/min BUN/Creatinine Ratio (10-20) Glucose (70-99(Fasting)) mg/dl POC Glucose 118 H (70-99) mg/dl Calcium (8.5-10.1) mg/dl Phosphorus (2.5-4.9) mg/dl Magnesium (1.7-2.4) mg/dl Medications Administered Current Inpatient Medications Acetaminophen (Acetaminophen 325 Mg Tab) 650 mg PO Q4H PRN PRN Reason: Pain or Fever Stop: 08/07/22 06:11 Albuterol (Albuterol Hfa 8 Gm Inhaler) 2 puffs INH Q4H PRN PRN Reason: Shortness Of Breath Or Wheezin Stop: 08/07/22 06:11 Amiodarone HCl (Amiodarone 200 Mg Tab) 200 mg PO DAILY [facility] Stop: 08/07/22 08:59 Last Admin: 07/10/22 07:46 Dose: 200 mg Apixaban (Apixaban 5 Mg Tablet) 5 mg PO BID [facility] Stop: 08/07/22 08:59 Last Admin: 07/09/22 08:02 Dose: Not Given Atorvastatin Calcium (Atorvastatin 40 Mg Tab) [address] [facility] Stop: 08/07/22 08:59 Last Admin: 07/10/22 07:47 Dose: 80 mg Bisacodyl (Bisacodyl 10 Mg Supp) 10 mg ID DAILY PRN PRN Reason: Constipation Stop: 08/07/22 06:11 Budesonide (Budesonide 0.5 Mg/2 Ml Vial (Pulmicort)) 0.[address] [facility] Stop: 08/08/22 18:59 Last Admin: 07/10/22 07:44 Dose: Not Given Clopidogrel Bisulfate (Clopidogrel Bisulfate 75 Mg Tab) [address] [facility] Stop: 08/07/22 08:59 Last Admin: 07/10/22 07:46 Dose: 75 mg Dextrose (Dextrose 50% 50 Ml Syringe) 25 - 50 ml IV UD PRN; Protocol PRN Reason: Hypoglycemia Protocol Stop: 08/07/22 06:11 Docusate Sodium (Docusate Sodium 100 Mg Cap) [address] [facility] Stop: 08/07/22 08:59 Last Admin: 07/10/22 07:47 Dose: 100 mg Doxycycline Hyclate (Doxycycline Hyclate 100 Mg Cap) [address] [facility] Stop: 07/15/22 06:59 Last Admin: 07/10/22 07:49 Dose: 100 mg Formoterol Fumarate (Formoterol 20 Mcg/2 Ml Vial) [address] [facility] Stop: 08/08/22 18:59 Last Admin: 07/10/22 07:44 Dose: Not Given Furosemide (Furosemide 40 Mg/4 Ml Vial) [address] [facility] Stop: 08/07/22 08:59 Glucagon (Glucagon For Inj 1 Mg Vial) 1 mg SQ UD PRN; Protocol PRN Reason: Hypoglycemia Protocol Stop: 08/07/22 06:11 Glucose (Glucose 40% Gel 15 Gm Tube) 15 - 30 gm PO UD PRN; Protocol PRN Reason: Hypoglycemia Protocol Stop: 08/07/22 06:11 Glucose (Glucose 10 Tab/Tube) 4 - 8 tab PO UD PRN; Protocol PRN Reason: Hypoglycemia Treatment Stop: 08/07/22 06:11 Guaifenesin (Guaifenesin 600 Mg Tabcr) 1,[address] [facility] Stop: 08/09/22 20:59 Cefepime HCl 2,000 mg/ Syringe 20 mls @ 5 mls/min IV Q8H [facility]; Protocol Stop: 07/10/22 16:59 Last Admin: 07/10/22 07:47 Dose: 5 mls/min Pantoprazole Sodium 40 mg/ (Syringe) 10 mls @ 5 mls/min IV BID [facility] Stop: 08/08/22 08:59 Last Admin: 07/10/22 07:47 Dose: 5 mls/min Methylprednisolone 40 mg/ (Syringe) 0.64 mls @ 1.5 mls/min IV DAILY [facility] Stop: 08/09/22 08:59 Last Admin: 07/10/22 08:44 Dose: 1.5 mls/min Insulin Aspart (Insulin Aspart Per Unit) [address] [facility] Stop: 08/07/22 16:29 Last Admin: 07/10/22 11:58 Dose: 3 units Ipratropium [place] (Ipratropium [place] Neb Soln 0.02% 2.5 Ml Vial) 0.[address] [facility] Stop: 08/07/22 06:59 Last Admin: 07/10/22 12:31 Dose: 0.5 mg Levalbuterol HCl (Levalbuterol 1.25mg/0.5ml Neb) 1.[address] [facility] Stop: 08/07/22 06:59 Last Admin: 07/10/22 12:31 Dose: 1.25 mg Levalbuterol HCl (Levalbuterol 1.25mg/0.5ml Neb) 1.25 mg NEB Q2H PRN; Protocol PRN Reason: Shortness Of Breath Or Wheezing Stop: 08/07/22 06:11 Miscellaneous (Carbohydrates For Hypoglycemia ) 15 - 30 gm PO UD PRN PRN Reason: Hypoglycemia Protocol Stop: 08/07/22 06:11 Miscellaneous Information (Pharmacy Glycemic Mgmt Consult) 1 each N/A UD PRN PRN Reason: Consult Stop: 08/07/22 06:11 Nitroglycerin (Nitroglycerin Sl 0.4 Mg/Tab Tab) 0.4 mg SL UD PRN PRN Reason: Chest Pain Stop: 08/07/22 06:11 Polyethylene Glycol (Polyethylene (Miralax) 17 Gm Pack) 17 gm PO QDL PRN PRN Reason: Constipation Stop: 08/07/22 06:11 Sacubitril/Valsartan (Valsartan/Sacubitril 26/24mg Tab) 1 tab PO BID [facility] Stop: 08/07/22 08:59 Senna/Docusate Sodium (Docusate Sodium/Senna 50/8.6mg Tab) 1 tab PO QDL PRN PRN Reason: Constipation Stop: 08/07/22 06:11 Sodium Biphosphate/Sodium Phosphate (Sod Phosphate/Sod Biphosphate Enema 132 Ml Btl) 118 ml ID DAILY PRN PRN Reason: Constipation Stop: 08/07/22 06:11 Spironolactone (Spironolactone 25 Mg Tab) 25 mg PO DAILY [facility] Stop: 08/07/22 08:59 Umeclidinium [place] (Umeclidinium [place] 62.5mcg/Blister 7 Puffs/Inhaler) 1 puffs INH DAILY [facility] Stop: 08/07/22 08:59 Last Admin: 07/10/22 09:05 Dose: 1 puffs (1) Respiratory failure with hypoxia and hypercapnia Chronicity: acute Qualified Code(s): J96.01 - Acute respiratory failure with hypoxia; J96.02 - Acute respiratory failure with hypercapnia; J96.02 - Acute respiratory failure with hypercapnia (2) Pulmonary edema Chronicity: acute Qualified Code(s): J81.0 - Acute pulmonary edema
--- NOTE | 2022-07-10 08:37 | XRay Report ---
XR chest 1V portable HISTORY: 66 years-old Male f/u acute shortness of breath COMPARISON: Chest radiograph July 09, 2022, chest CT July 08, 2022 TECHNIQUE: AP view of the chest FINDINGS: Cardiac silhouette is enlarged. Atherosclerosis of the aorta. Emphysema with pulmonary vascular conge stion. Interstitial coarsening with patchy bilateral airspace opacities, right greater than left. Sma ll pleural effusions. Degenerative changes of the shoulders and spine. Surgical clips of right upper chest. IMPRESSION: 1. Cardiomegaly with unchanged pulmonary edema. 2. Emphysema with patchy airspace opacities redemonstrated suggestive of alveolar pulmonary edema malena otoniel superimposed pneumonia. 3. Unchanged small pleural effusions. ACT 112: Negative or not required by law. The above report was generated using voice recognition software. It may contain grammatical, syntax o r spelling errors. Electronically signed by: Torres Marshall M.D. 07/10/2022 8:35 AM
[2022-07-10] MEDS: methylPREDNISolone 40 MG in SYRINGE 0 ML IV SCH (08:44)
[2022-07-10] MEDS: UMECLIDINIUM BROMIDE 62.5MCG/BLISTER 7 PUFFS/INHALER INH SCH (09:05)
--- NOTE | 2022-07-10 10:25 | Critical Care Progress Note ---
Date of Service July 10, 2022 Assessment & Plan (1) Acute heart failure with reduced ejection fraction and diastolic dysf unction: (2) CAD (coronary artery disease): (3) Pneumonia: (4) COPD exacerbation: (5) HTN (hypertension): Plan .Reason Critically Ill: 66yo male with PMHx significant for alcohol abuse, history of tobacco abuse, history of non-ST elevated OR, history of CHF, hypertension, shock liver, chest wall hematoma presents with complaints of shortness of breath. Admitted to ICU for vasopressor support. Neuro - [facility] ICU: NEGATIVE Sedation: none Analgesia: Tylenol prn Cardiac - Acute on chronic HFrEF, h/o multivessel CAD s/p recent multivessel intervention/PCI, afib, hypotension -Echo: generally improved from previous, EF 45-50%, no thrombus, moderate hypokinesis of basal inferior wall, mild diffuse hypokinesis -initial EKG without ST changes -cont. plavix, amiodarone, statin -Entresto and spironolactone on hold due to low BPs -daily weights, strict IO's, monitor Cr Respiratory - Acute respiratory failure 2/2 multifocal pneumonia -CT chest: Emphysema and chronic scarring within the right lung, interlobular septal thickening with patchy multifocal ground glass and consolidative airspace opacities, small bilateral pleural effusions -currently saturating 98% on 2L ravinder BENEDICT as able -abx for pneumonia as below --COPD with emphysema On Incruse at home Brovana and budesonide added GI - No concerns at this time -on protonix for reflux disease RENAL/LYTES - Replace lytes as needed - No concerns at this time ENDO - -on ICU hypoglycemic protocol HEME - -- Hemoglobin trending down Continue to monitor H&H Transfuse if less than 7 ID - Multifocal pneumonia (typical vs atypical) -CT chest: interlobular septal thickening with patchy multifocal ground glass and consolidative airspace opacities -leukocytosis with left shift -procal wnl -Rocephin x1 in ED. Continue with doxycycline and cefepime for now. --Prophylaxis VTE: Apixaban on hold GI: Pantoprazole IV twice daily Lines: Peripheral Diet: Cardiac Plan: In/out: -1.5 L, urine output 1726, -2.8 L since coming to the hospital Potassium and magnesium being replaced Will give 20 mg of Lasix today. Solu-Medrol 40 mg on a daily basis Repeat H&H later today BiPAP nightly and as needed shortness of breath Patient hemodynamically stable to be downgraded to PCU. If repeat H&H is stable can resume apixaban Case was discussed with Dr. Patel Please note the above document was generated using voice recognition software. It may contain grammatical, syntax or spelling errors.Any formal questions or concerns about the content, text or information contained within the body of this dictation should be directly addressed to the provider for clarification. Admission and Anticipated Discharge Date Admission Date: July 08, 2022 Subjective Patient seen and examined at bedside. No acute distress. He was saturating 98% on 6 L. I went down to 3 L. Map was in the 70s. Denies any nausea vomiting, fair appetite Does complain of some shortness of breath. Having difficulty bringing up phlegm. Review of Systems Review of Systems: All systems reviewed & are unremarkable except as noted in Subjective Physical Exam Physical Exam: Constitutional: No acute distress, frail-appearing HEENT: EOMI, PERRLA Respiratory system: Decreased air entry bilaterally, no wheeze, no rhonchi, po sitive crackles bilateral lower lobes CVS: S1-S2 positive, no murmurs or gallops, right-sided subclavicular incision edema appreciated Abdomen: Soft, nontender, nondistended, positive bowel sounds x4 Extremities: +2 pulses bilaterally radialis/ dorsalis pedis, no cyanosis, no edema Neuro: Awake alert oriented x3 Psych: Normal mood and affect G/U: No [place] Skin: no rashes, warm and dry Lymphatic: no cervical or axillary lymphadenopathy Results & Data Results & Data ([facility]) Vital Signs (Past 12 Hours) Vital Signs Temp Pulse Pulse Resp BP Pulse Ox O2 Del Method 07/10/22 10:00 95 H 24 91 Nasal Cannula 07/10/22 10:00 96/60 L 07/10/22 09:00 97 H 24 95 07/10/22 09:00 108/64 07/10/22 08:00 100 H 25 H 91 07/10/22 08:00 105/54 L 07/10/22 07:07 98/69 L 07/10/22 07:07 94 H 23 97 07/10/22 07:00 95 H 23 97 07/10/22 06:45 93 H 13 98 07/10/22 10:04 Nasal Cannula 07/10/22 08:00 88 07/10/22 07:43 101 H 22 96 Oxymask 07/10/22 05:00 88 28 H 93 07/10/22 05:00 92/59 L 07/10/22 04:00 36.7 C 07/10/22 04:00 89 26 H 99 BiPAP 07/10/22 04:00 92/59 L 07/10/22 03:00 99 H 26 H 95 07/10/22 03:00 128/76 07/10/22 02:00 95 H 25 H 96 07/10/22 02:00 104/68 07/10/22 01:00 88 24 98 07/10/22 01:00 104/65 07/10/22 00:00 83 28 H 98 07/10/22 00:00 90/59 L 07/10/22 00:00 36.6 C 07/09/22 23:00 85 28 H 100 07/09/22 23:00 89/59 L 07/09/22 22:53 84 O2 Flow Rate 07/10/22 10:00 3 07/10/22 10:00 07/10/22 09:00 07/10/22 09:00 07/10/22 08:00 07/10/22 08:00 07/10/22 07:07 07/10/22 07:07 07/10/22 07:00 07/10/22 06:45 07/10/22 10:04 3 07/10/22 08:00 07/10/22 07:43 6 07/10/22 05:00 07/10/22 05:00 07/10/22 04:00 07/10/22 04:00 07/10/22 04:00 07/10/22 03:00 07/10/22 03:00 07/10/22 02:00 07/10/22 02:00 07/10/22 01:00 07/10/22 01:00 07/10/22 00:00 07/10/22 00:00 07/10/22 00:00 07/09/22 23:00 07/09/22 23:00 07/09/22 22:53 Laboratory Results 07/10/22 04:49 07/10/22 04:49 Coding Level of Care Code 68702 SUB INP/OBS CARE 350MIN Diagnoses Acute heart failure with reduced ejection fraction and diastolic dysfunction I50.41 CAD (coronary artery disease) I25.10 Pneumonia J18.9 COPD exacerbation J44.1 HTN (hypertension) I10
--- NOTE | 2022-07-10 10:39 | Cardiology Progress Note ---
Date of Service July 10, 2022 Assessment & Plan (1) Acute heart failure with reduced ejection fraction and diastolic dysf unction: (2) Acute respiratory failure with hypoxia: (3) Lung mass: (4) CAD (coronary artery disease): (5) Pneumonia: Plan Patient with recent extensive hospitalization at [facility], discharged 07/02 after multivessel CAD s/p multivessel intervention/PCI, cardiogenic shock requiring pressors, mechanical ventilation, IAPB and Impella device complicated also by m ultifocal pneumonia/sepsis. Patient had been doing better at rehab when he developed acute respiratory distress with hypoxia. Symptoms improving on admission after IV diuretics, nebulizers, antibiotics possible pneumonia and lung mass noted on chest CT. Troponin only minimally elevated. he has no symptoms to suggest ACS. EKG without acute changes on admission. 2D echocardiogram revealed mildly reduced LV systolic function with moderate hypokinesis of the basal inferior wall along with mild diffuse hypokinesis and moderate mitral regurgitation Continue plavix given recent coronary interventions. Continue eliquis. Continue amiodarone for now. Need to consider amio toxicity with recent worsening of his pulmonary and respiratory status? However it seems patient had abnormal chest Ct at [facility] prior to amiodarone. Would likely benefit from the addition of metoprolol succinate once BP improves Continue atorvastatin Entresto and spironolactone on hold due to hypotension. Continue furosemide 40 mg IV as BP allows. now 3.5 L negative Monitor I+O's Supplement Potassium. Admission and Anticipated Discharge Date Admission Date: July 08, 2022 Subjective Patient seen and examined. Chart reviewed. Telemetry reviewed. Review of Systems Review of Systems: All systems reviewed & are unremarkable except as noted in HPI & below Physical Exam Physical Exam: General: Awake, alert and oriented x 3. No acute distress. On BiPAP HEENT: Normocephalic, atraumatic. Pupils equal, round and reactive to light and accommodation. Extraocular muscles are intact. Anicteric sclera. Moist mucous membranes. Neck: No JVD. No bruit. Cardiovascular: Regular. Positive S-4. Normal S-1 and S-2. No S-3. 3/6 holosystolic ejection murmur, left sternal border, mid-clavicular line with radiation to the axilla. No rubs. Pulmonary: Coarse breath sounds diffusely with reduced lung sounds in the bilateral bases. Positive for crackles Abdomen: Bowel sounds x 4, soft. No rebound, guarding or tenderness. No organomegaly. Extremities: No clubbing, cyanosis or edema. +2 pedal pulses bilaterally. Skin: Warm and dry. Results & Data ([facility]) Vital Signs (Past 12 Hours) Vital Signs Temp Pulse Pulse Resp BP Pulse Ox O2 Del Method 07/10/22 10:00 95 H 24 91 Nasal Cannula 07/10/22 10:00 96/60 L 07/10/22 09:00 97 H 24 95 07/10/22 09:00 108/64 07/10/22 08:00 100 H 25 H 91 07/10/22 08:00 105/54 L 07/10/22 07:07 98/69 L 07/10/22 07:07 94 H 23 97 07/10/22 07:00 95 H 23 97 07/10/22 06:45 93 H 13 98 07/10/22 10:04 Nasal Cannula 07/10/22 08:00 88 07/10/22 07:43 101 H 22 96 Oxymask 07/10/22 05:00 88 28 H 93 07/10/22 05:00 92/59 L 07/10/22 04:00 36.7 C 07/10/22 04:00 89 26 H 99 BiPAP 07/10/22 04:00 92/59 L 07/10/22 03:00 99 H 26 H 95 07/10/22 03:00 128/76 07/10/22 02:00 95 H 25 H 96 07/10/22 02:00 104/68 07/10/22 01:00 88 24 98 07/10/22 01:00 104/65 07/10/22 00:00 83 28 H 98 07/10/22 00:00 90/59 L 07/10/22 00:00 36.6 C 07/09/22 23:00 85 28 H 100 07/09/22 23:00 89/59 L 07/09/22 22:53 84 O2 Flow Rate 07/10/22 10:00 3 07/10/22 10:00 07/10/22 09:00 07/10/22 09:00 07/10/22 08:00 07/10/22 08:00 07/10/22 07:07 07/10/22 07:07 07/10/22 07:00 07/10/22 06:45 07/10/22 10:04 3 07/10/22 08:00 07/10/22 07:43 6 07/10/22 05:00 07/10/22 05:00 07/10/22 04:00 07/10/22 04:00 07/10/22 04:00 07/10/22 03:00 07/10/22 03:00 07/10/22 02:00 07/10/22 02:00 07/10/22 01:00 07/10/22 01:00 07/10/22 00:00 07/10/22 00:00 07/10/22 00:00 07/09/22 23:00 07/09/22 23:00 07/09/22 22:53
[2022-07-10 12:49] LABS: Hematocrit (blood only) 30.2 % (40.1-51.0); Hemoglobin 9.7 g/dl (14.0-18.0)
[2022-07-10] MEDS: guaiFENesin 600 MG TABCR PO SCH (20:25)
[2022-07-10] MEDS: APIXABAN 5 MG TABLET PO SCH (20:26)
--- NOTE | 2022-07-10 22:00 | Electrocardiogram Report ---
Test Reason : Blood Pressure : / mmHG Vent. Rate : 093 BPM Atrial Rate : 093 BPM P-R Int : 210 ms QRS Dur : 098 ms QT Int : 410 ms P-R-T Axes : 081 117 099 degrees QTc Int : 509 ms Poor data quality, interpretation may be adversely affected Sinus rhythm with 1st degree A-V block Right axis deviation Anterior infarct , age undetermined Abnormal ECG When compared with ECG of 08-JUL-2022 02:14, [place] interval has increased Anterior infarct is now Present Nonspecific T wave abnormality now evident in Lateral leads Confirmed by Joseluis Gramajo ([id number]) on 07/10/2022 9:59:59 PM Referred By: REFERRED SELF Confirmed By:Joseluis Gramajo
[2022-07-11] MEDS: IPRATROPIUM BROMIDE NEB SOLN 0.02% 2.5 ML VIAL INH SCH ×4 (01:56→19:23)
[2022-07-11] MEDS: LEVALBUTEROL 1.25MG/0.5ML NEB INH SCH ×4 (01:56→19:24)
--- NOTE | 2022-07-11 06:26 | Electrocardiogram Report ---
Test Reason : Blood Pressure : / mmHG Vent. Rate : 087 BPM Atrial Rate : 087 BPM P-R Int : 186 ms QRS Dur : 088 ms QT Int : 400 ms P-R-T Axes : 088 100 -19 degrees QTc Int : 481 ms Poor data quality, interpretation may be adversely affected Normal sinus rhythm Rightward axis Prolonged QT Nonspecific T wave abnormality Abnormal ECG When compared with ECG of 09-JUL-2022 05:14, Criteria for Anterior infarct are no longer Present Confirmed by Joseluis Gramajo ([id number]) on 07/11/2022 6:25:52 AM Referred By: REFERRED SELF Confirmed By:Joseluis Gramajo
[2022-07-11] MEDS: BUDESONIDE 0.5 MG/2 ML VIAL (PULMICORT) NEB SCH ×2 (07:29→19:23)
[2022-07-11] MEDS: FORMOTEROL 20 MCG/2 ML VIAL INH SCH ×2 (07:30→19:23)
[2022-07-11 07:36] LABS: Hematocrit (blood only) 29.9 % (40.1-51.0); Hemoglobin 9.5 g/dl (14.0-18.0); Mean Corpuscular Hemoglobin 30.1 pg (25.0-34.0); Mean Corpuscular Hgb Conc 31.8 g/dL (32.0-36.0); Mean Corpuscular Volume 94.6 fL (80.0-100.0); Platelet Count 227 K/uL (130-400); RDW Coefficient of Variation 15.9 % (11.5-14.5); RDW Standard Deviation 54.6 fL (36.4-46.3); Red Blood Count 3.16 M/uL (4.63-6.08); White Blood Count 12.65 K/ul (4.8-10.8)
[2022-07-11 08:04] LABS: BUN Creatinine Ratio 40.7 (10-20); Calcium 8.5 mg/dl (8.5-10.1); Est GFR (African American) 121.4 ml/min; Est GFR (Non-African American) 104.8 ml/min; Magnesium 1.9 mg/dl (1.7-2.4); Phosphorus 2.3 mg/dl (2.5-4.9); Potassium 3.9 mmol/L (3.5-5.1)
[2022-07-11] MEDS: AMIODARONE 200 MG TAB PO SCH (08:05)
[2022-07-11] MEDS: DOXYCYCLINE HYCLATE 100 MG CAP PO SCH ×2 (08:05→20:36)
[2022-07-11] MEDS: CLOPIDOGREL BISULFATE 75 MG TAB PO SCH (08:06)
[2022-07-11] MEDS: ATORVASTATIN 40 MG TAB PO SCH (08:06)
[2022-07-11] MEDS: APIXABAN 5 MG TABLET PO SCH ×2 (08:06→20:36)
[2022-07-11] MEDS: DOCUSATE SODIUM 100 MG CAP PO SCH ×2 (08:06→20:38)
[2022-07-11] MEDS: guaiFENesin 600 MG TABCR PO SCH ×2 (08:06→20:36)
[2022-07-11] MEDS: UMECLIDINIUM BROMIDE 62.5MCG/BLISTER 7 PUFFS/INHALER INH SCH (08:07)
[2022-07-11] MEDS: INSULIN ASPART PER UNIT SC SCH ×4 (08:08→20:34)
--- NOTE | 2022-07-11 08:17 | Hospitalist Progress Note ---
Date of Service July 11, 2022 Assessment & Plan (1) Respiratory failure with hypoxia and hypercapnia: (2) Pulmonary edema: (3) Pneumonia: (4) CAD (coronary artery disease): Plan: This is a 66-year-old male who presents with acute shortness of breath. 1. Acute respiratory failure, most likely secondary to [id number] systolic CHF, and multifocal pna Last echo was in last admission with 20-25% EF. Received a dose of Lasix IV 40 in the ER. Continued w/ IV Lasix as BP tolerates Hold Entresto and spironolactone d/t hypotension. Daily weights, I's and O's. Repeat Echo Compared with study dated May 31, 2022, LV systolic function has significantly improved. LV systolic function is mildly reduced EF 45 to 50%. There is moderate mitral regurg. Diastolic dysfunction grade II. Patient on nitro drip in the ER but BP dropped. Transferred to ICU for possible pressor support and need for diuresis. 07/10 Currently off the BiPAP. Pt is on 3 L NC. Per RN, patient gets winded easily, on BiPAP yesterday Cardiology consulted for further recommendations. 07/11 currently on 2 L of O2 via nasal cannula, appears more comfortable 2. PNA, Poss. mild chronic obstructive pulmonary disease exacerbation. The patient has also history of chronic obstructive pulmonary disease. Chest CT obtained - multifocal pna, pt has leukocytosis. Empirically treating for chronic obstructive pulmonary disease exacerbation with IV Solu-Medrol, nebs around the clock and p.r.n. Continue antibiotics for pna - cefepime + doxy For COPD - on Incruse at home - added Brovana and Budesonide by pulmonary/c ritical care team 3. Diabetes Hyperglycemic on admission, received IV insulin in ER. We will hold Jardiance. Placed on Lantus insulin sliding scale. Follow the blood sugars while the patient is on insulin. Glycemic - pharmacy consulted 4. Atrial fibrillation - was diagnosed in last admission to [place], on amiodarone and Eliquis - eliquis resumed, hemoglobin stable 5. History of multivessel CAD. As per discharge from [place], status post multivessel PCI, on Plavix and statin. Repeated echocardiogram, as above Cardiology following 6. Mild elevation of troponin, mostly demand ischemia. Cardiology following 7. Hypertension: On Entresto, on hold for now. We will monitor blood pressure. BP on low side 8. Gastroesophageal reflux disease: On Protonix. 9. Hx of tobacco abuse and history of alcohol abuse. DVT ppx: Eliquis DISPOSITION:PCU CODE: full code. PT/OT. Social service to help with discharge planning. Admission and Anticipated Discharge Date Admission Date: July 08, 2022 Subjective Patient seen in follow-up of hypotension, respiratory failure, heart failure exacerbation, pneumonia. Recent history of complicated hospital course. Currently laying in bed, on supplemental oxygen, 2L Appears more comfortable than yesterday patient gets winded easily, yesterday required BiPAP before Denies any chest pain. Denies abdominal pain. received iv lasix 20 x2 yesterday, will give additional dose Palliative medicine also consulted Review of Systems Review of Systems: All systems reviewed & are unremarkable except as noted in Subjective Physical Exam Physical Exam: GENERAL: thin and frail, currently not in acute distress, on 2L HEENT: Pupils equal, round and reactive to light. No facial droop NECK: No neck masses seen. CARDIOVASCULAR: S1 and S2 heard. Regular rate and rhythm. No murmur, no gallop. RESPIRATORY: Normal AP diameter. No accessory muscle use.+ crackles ABDOMEN: Soft, bowel sounds present, nontender, no distention. NEURO: Alert and awake, somewhat hard of hearing. No facial droop. Obeys simple commands. Moves extremities. EXTREMITIES: No obvious edema or erythema seen. Results & Data Results & Data ([facility]) Vital Signs (Past 12 Hours) Vital Signs Temp Pulse Resp BP Pulse Ox O2 Del Method O2 Flow Rate 07/11/22 07:47 36.4 C L 88 20 92/55 L 99 Nasal Cannula 2 07/11/22 07:30 88 18 96 Nasal Cannula 2 07/11/22 03:43 36.6 C 90 18 98/61 L 97 Nasal Cannula 3.0 07/10/22 23:01 36.8 C 92 H 20 100/61 96 Nasal Cannula 3.0 07/10/22 20:19 36.6 C 92 H 20 92/56 L 97 Nasal Cannula 3.0 Laboratory Results 07/11/22 07/11/22 07/11/22 Range/Units 07:38 07:22 07:22 WBC 12.65 H (4.8-10.8) K/ul RBC 3.16 L (4.63-6.08) M/uL Hgb 9.5 L (14.0-18.0) g/dl Hct 29.9 L (40.1-51.0) % MCV 94.6 (80.0-100.0) fL MCH 30.1 (25.0-34.0) pg MCHC 31.8 L (32.0-36.0) g/dL RDW Std Deviation 54.6 H (36.4-46.3) fL RDW Coeff of Gordon 15.9 H (11.5-14.5) % Plt Count 227 (130-400) K/uL MPV 10.0 (9.4-12.4) fL Sodium 133 L (136-145) mmol/L Potassium 3.9 (3.5-5.1) mmol/L Chloride 99 (98-107) mmol/L Carbon Dioxide 30 (21-32) mmol/L Anion Gap 4 (3-11) BUN 24 H (6-23) mg/dl Creatinine 0.59 L (0.6-1.4) mg/dl Est Cr Clr Drug Dosing 83.0 ml/min Est GFR ( Amer) 121.4 ml/min Est GFR (Non-Af Amer) 104.8 ml/min BUN/Creatinine Ratio 40.7 H (10-20) Glucose 88 (70-99(Fasting)) mg/dl POC Glucose 86 (70-99) mg/dl Calcium 8.5 (8.5-10.1) mg/dl Phosphorus 2.3 L (2.5-4.9) mg/dl Magnesium 1.9 (1.7-2.4) mg/dl 07/10/22 07/10/22 07/10/22 Range/Units 20:23 16:03 12:38 WBC (4.8-10.8) K/ul RBC (4.63-6.08) M/uL Hgb 9.7 L (14.0-18.0) g/dl Hct 30.2 L (40.1-51.0) % MCV (80.0-100.0) fL MCH (25.0-34.0) pg MCHC (32.0-36.0) g/dL RDW Std Deviation (36.4-46.3) fL RDW Coeff of Gordon (11.5-14.5) % Plt Count (130-400) K/uL MPV (9.4-12.4) fL Sodium (136-145) mmol/L Potassium (3.5-5.1) mmol/L Chloride (98-107) mmol/L Carbon Dioxide (21-32) mmol/L Anion Gap (3-11) BUN (6-23) mg/dl Creatinine (0.6-1.4) mg/dl Est Cr Clr Drug Dosing ml/min Est GFR ( Amer) ml/min Est GFR (Non-Af Amer) ml/min BUN/Creatinine Ratio (10-20) Glucose (70-99(Fasting)) mg/dl POC Glucose 144 H 119 H (70-99) mg/dl Calcium (8.5-10.1) mg/dl Phosphorus (2.5-4.9) mg/dl Magnesium (1.7-2.4) mg/dl 07/10/22 Range/Units 11:30 WBC (4.8-10.8) K/ul RBC (4.63-6.08) M/uL Hgb (14.0-18.0) g/dl Hct (40.1-51.0) % MCV (80.0-100.0) fL MCH (25.0-34.0) pg MCHC (32.0-36.0) g/dL RDW Std Deviation (36.4-46.3) fL RDW Coeff of Gordon (11.5-14.5) % Plt Count (130-400) K/uL MPV (9.4-12.4) fL Sodium (136-145) mmol/L Potassium (3.5-5.1) mmol/L Chloride (98-107) mmol/L Carbon Dioxide (21-32) mmol/L Anion Gap (3-11) BUN (6-23) mg/dl Creatinine (0.6-1.4) mg/dl Est Cr Clr Drug Dosing ml/min Est GFR ( Amer) ml/min Est GFR (Non-Af Amer) ml/min BUN/Creatinine Ratio (10-20) Glucose (70-99(Fasting)) mg/dl POC Glucose 113 H (70-99) mg/dl Calcium (8.5-10.1) mg/dl Phosphorus (2.5-4.9) mg/dl Magnesium (1.7-2.4) mg/dl Medications Administered Current Inpatient Medications Acetaminophen (Acetaminophen 325 Mg Tab) 650 mg PO Q4H PRN PRN Reason: Pain or Fever Stop: 08/07/22 06:11 Albuterol (Albuterol Hfa 8 Gm Inhaler) 2 puffs INH Q4H PRN PRN Reason: Shortness Of Breath Or Wheezin Stop: 08/07/22 06:11 Amiodarone HCl (Amiodarone 200 Mg Tab) 200 mg PO DAILY [facility] Stop: 08/07/22 08:59 Last Admin: 07/11/22 08:05 Dose: 200 mg Apixaban (Apixaban 5 Mg Tablet) 5 mg PO BID [facility] Stop: 08/07/22 08:59 Last Admin: 07/11/22 08:06 Dose: 5 mg Atorvastatin Calcium (Atorvastatin 40 Mg Tab) 80 mg PO DAILY [facility] Stop: 08/07/22 08:59 Last Admin: 07/11/22 08:06 Dose: 80 mg Bisacodyl (Bisacodyl 10 Mg Supp) 10 mg HI DAILY PRN PRN Reason: Constipation Stop: 08/07/22 06:11 Budesonide (Budesonide 0.5 Mg/2 Ml Vial (Pulmicort)) 0.5 mg NEB BIDR [facility] Stop: 08/08/22 18:59 Last Admin: 07/11/22 07:29 Dose: 0.5 mg Clopidogrel Bisulfate (Clopidogrel Bisulfate 75 Mg Tab) 75 mg PO DAILY [facility] Stop: 08/07/22 08:59 Last Admin: 07/11/22 08:06 Dose: 75 mg Dextrose (Dextrose 50% 50 Ml Syringe) 25 - 50 ml IV UD PRN; Protocol PRN Reason: Hypoglycemia Protocol Stop: 08/07/22 06:11 Docusate Sodium (Docusate Sodium 100 Mg Cap) 100 mg PO BID [facility] Stop: 08/07/22 08:59 Last Admin: 07/11/22 08:06 Dose: 100 mg Doxycycline Hyclate (Doxycycline Hyclate 100 Mg Cap) 100 mg PO BID [facility] Stop: 07/15/22 06:59 Last Admin: 07/11/22 08:05 Dose: 100 mg Formoterol Fumarate (Formoterol 20 Mcg/2 Ml Vial) 20 mcg INH BIDR [facility] Stop: 08/08/22 18:59 Last Admin: 07/11/22 07:30 Dose: 20 mcg Furosemide (Furosemide 40 Mg/4 Ml Vial) 40 mg IV [id number] [facility] Stop: 08/07/22 08:59 Glucagon (Glucagon For Inj 1 Mg Vial) 1 mg SQ UD PRN; Protocol PRN Reason: Hypoglycemia Protocol Stop: 08/07/22 06:11 Glucose (Glucose 40% Gel 15 Gm Tube) 15 - 30 gm PO UD PRN; Protocol PRN Reason: Hypoglycemia Protocol Stop: 08/07/22 06:11 Glucose (Glucose 10 Tab/Tube) 4 - 8 tab PO UD PRN; Protocol PRN Reason: Hypoglycemia Treatment Stop: 08/07/22 06:11 Guaifenesin (Guaifenesin 600 Mg Tabcr) 1,200 mg PO Q12 [facility] Stop: 08/09/22 20:59 Last Admin: 07/11/22 08:06 Dose: 1,200 mg Pantoprazole Sodium 40 mg/ (Syringe) 10 mls @ 5 mls/min IV BID [facility] Stop: 08/08/22 08:59 Last Admin: 07/10/22 20:26 Dose: 5 mls/min Methylprednisolone 40 mg/ (Syringe) 0.64 mls @ 1.5 mls/min IV DAILY [facility] Stop: 08/09/22 08:59 Last Admin: 07/10/22 08:44 Dose: 1.5 mls/min Insulin Aspart (Insulin Aspart Per Unit) 0 units SC ACHS [facility] Stop: 08/07/22 16:29 Last Admin: 07/11/22 08:08 Dose: Not Given Ipratropium [place] (Ipratropium [place] Neb Soln 0.02% 2.5 Ml Vial) 0.5 mg INH Q6R [facility] Stop: 08/07/22 06:59 Last Admin: 07/11/22 07:29 Dose: Not Given Levalbuterol HCl (Levalbuterol 1.25mg/0.5ml Neb) 1.25 mg INH Q6R [facility] Stop: 08/07/22 06:59 Last Admin: 07/11/22 07:29 Dose: Not Given Levalbuterol HCl (Levalbuterol 1.25mg/0.5ml Neb) 1.25 mg NEB Q2H PRN; Protocol PRN Reason: Shortness Of Breath Or Wheezing Stop: 08/07/22 06:11 Miscellaneous (Carbohydrates For Hypoglycemia ) 15 - 30 gm PO UD PRN PRN Reason: Hypoglycemia Protocol Stop: 08/07/22 06:11 Miscellaneous Information (Pharmacy Glycemic Mgmt Consult) 1 each N/A UD PRN PRN Reason: Consult Stop: 08/07/22 06:11 Nitroglycerin (Nitroglycerin Sl 0.4 Mg/Tab Tab) 0.4 mg SL UD PRN PRN Reason: Chest Pain Stop: 08/07/22 06:11 Polyethylene Glycol (Polyethylene (Miralax) 17 Gm Pack) 17 gm PO QDL PRN PRN Reason: Constipation Stop: 08/07/22 06:11 Sacubitril/Valsartan (Valsartan/Sacubitril 26/24mg Tab) 1 tab PO BID [facility] Stop: 08/07/22 08:59 Senna/Docusate Sodium (Docusate Sodium/Senna 50/8.6mg Tab) 1 tab PO QDL PRN PRN Reason: Constipation Stop: 08/07/22 06:11 Sodium Biphosphate/Sodium Phosphate (Sod Phosphate/Sod Biphosphate Enema 132 Ml Btl) 118 ml HI DAILY PRN PRN Reason: Constipation Stop: 08/07/22 06:11 Spironolactone (Spironolactone 25 Mg Tab) 25 mg PO DAILY [facility] Stop: 08/07/22 08:59 Umeclidinium [place] (Umeclidinium [place] 62.5mcg/Blister 7 Puffs/Inhaler) 1 puffs INH DAILY [facility] Stop: 08/07/22 08:59 Last Admin: 07/11/22 08:07 Dose: 1 puffs (1) Respiratory failure with hypoxia and hypercapnia Chronicity: acute Qualified Code(s): J96.01 - Acute respiratory failure with hypoxia; J96.02 - Acute respiratory failure with hypercapnia; J96.02 - Acute respiratory failure with hypercapnia (2) Pulmonary edema Chronicity: acute Qualified Code(s): J81.0 - Acute pulmonary edema
--- NOTE | 2022-07-11 09:28 | XRay Report ---
XR chest 1V portable CLINICAL HISTORY: follow up COMPARISON STUDY: Chest CT July 08, 2022. Chest radiograph July 10, 2022. FINDINGS: Right axillary/upper chest wall surgical clips are noted. There is no pneumothorax. Emphyse ma is present. There are small bilateral pleural effusions. Interstitial thickening and bilateral air space opacities persist. Persistent left basilar opacity. IMPRESSION: 1. Persistent interstitial thickening suggestive of pulmonary edema. 2. Small bilateral pleural effusions with bibasilar opacities, greater on the left. This could reflec t pneumonia or atelectasis. 3. Emphysema. ACT 112: Negative or not required by law. Electronically signed by: Oc Huggins M.D. 07/11/2022 9:27 AM
--- NOTE | 2022-07-11 10:01 | Palliative Care Consultation ---
Date of Consultation July 11, 2022 Assessment & Plan (1) Palliative care encounter: Met with pt/family. Provided overview of Palliative Medicine, a subspecialty that provides specialized medical care for people living with a serious illness by offering a focus on quality of life. Palliative Medicine is often conflated with hospice: I advised patient/family that Palliative and hospice can be partners but we are not the same. It is important to understand the difference so that we may be informed, and not afraid. Palliative Medicine works to improve QOL through reduction of symptom burden/more control over their illness, for both the patient and family. Palliative medicine clinicians are board certified, specially-trained and another member of the patient's medical care team. We often provide an extra layer of support because our care is based on the needs of the patient, not the prognosis; as such, it's appropriate at any age/advancing stage of a serious illness and can be provided along with curative treatment. Palliative Medicine clinicians are also trained in advanced communication methodologies, to facilitate complex discussions about advanced illness planning, which are needed to help assure that the treatment choices match the patient's goals, aka delivering Goal Concordant care. Finally, we discussed that hospice is a visiting nurse service that focuses on care delivered at the very end of life for patients with terminal illness, with life expectancy less than 6 month. (2) Advanced care planning/counseling discussion: Patient states that he had 1 day left and rehab before this acute dyspnea event led to this admission. Currently feels nearly 80% better than when he first came in. 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 We talked about the options for moving forward should he return home. I recommended the addition of some home health with visiting nurses for some ongoing medication management and oversight. He is open to this noting that he lives alone with his mother who helps provide some care as needed but is not his primary caregiver. His daughter lives approximately 5 miles away and can be available to help when needed. Patient states that he understands he had significant heart issues but that the interventions undertaken at [facility] including the stents have helped stabilize him. He does understand he has multivessel coronary disease and he has a weak heart. He however notes that he significantly feels better and able to resume his life without additional supportive resources, noting that he no longer requires supplemental oxygen. He does not feel he needs anything more than visiting nurse services at home and at that he only needs them for short-term. He feels he has some reasonable recovery ahead of him. He denies any acute symptom management needs. His goals at this time are to be discharged from the hospital, return home, and continue to recover from his cardiac admissions with the hope of potentially returning to work in a few months. He wants to continue to pursue current medical therapies for his cardiac issues and does not feel he has any unfixable problems at this time. (3) Respiratory failure with hypoxia and hypercapnia: Chronicity: acute Qualified Code(s): J96.01 - Acute respiratory failure with hypoxia; J96.02 - Acute respiratory failure with hypercapnia; J96.02 - Acute respiratory failure with hypercapnia (4) CAD (coronary artery disease): (5) NSTEMI (non-ST elevation myocardial infarction): (6) Heart failure with reduced ejection fraction: Plan Patient is pleased with his current level of care. He does not want to change the current plan and feels that he can return home safely with minimal support but is agreeable to some short-term visiting nurse services to help with his medication management and monitor his resumption of ADLs at home without additional support as he has had in the hospital and residential. He is not interested in any transitions of care such as hospice or de-escalating therapeutic interventions at this time. He also wishes to remain a full code as he feels he has derived significant benefit from his aggressive interventions to date. Patient not interested in ongoing palliative care. He does not have any acute symptom management needs at this time. I will sign off, as we were consulted for goals of care which are documented above. I will remain available for any engagement should this be warranted in the future. Patient was provided my contact information and encouraged to call should he have any additional questions or concerns. This time he is willing to go home with visiting nurse services but does not want anything more beyond that. Diana Collins DNP Clinical Director, Palliative Medicine History of Present Illness Reason for Consultation: " On 07/10/22 @ 16:51 Ace Patel Wrote To Helen Moreira goals of care" Attending Physician: Ace Patel MD History of Present Illness 66yo male admitted 07/08/22 for SOB. Last admitted 05/31/22 with resp failure, NSTEMI and cardiogenic shock, CHF w/EF ~ 25% and AECOPD. He has been found to have Acute respiratory failure, most likely secondary to [id number] systolic CHF per admitting note: "Urgent cardiac catheterization was done, which revealed severe multivessel coronary artery disease with severely calcified and occluded left circumflex at [facility] and was transferred to [place]. It looks like he stayed in [place] for whole June and in [place] he was placed on intraaortic balloon pump. IABP was later upgraded to Impella( IABP seemed to have broken), underwent multivessel PCI, complicated by hemorrhagic shock and cardiogenic shock, intubated for pulmonary edema, looks like intubated for many days. Diagnosed and treated empirically for pneumonia. Ultimately extubated and Impella removed. He was found to have new onset AFib during the course and currently on amiodarone and Eliquis, and he was discharged to [facility] on 07/[facility]2022 and now he comes back with shortness of breath. The patient is ambulating sometimes with cane and sometime without cane." PMH: alcohol abuse, +tobacco abuse, s/p NSTEMI, CHF/HFrEF, HTN, A FIb, multivessel CAD, GERD, DVT, shock liver, chest wall hematoma. Patient is seen in his room, no family present. He is awake alert and interactive. He denies any acute distress. He states he is feeling nearly 80% improved from when he arrived to the hospital. 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 He had 1 day left to his rehab when his symptoms began and necessitated transfer to the emergency department and the subsequent admission. Allergies Allergy/AdvReac Type Severity Reaction Status Date / Time piperacillin [From Zosyn] Allergy Unknown ON Verified 07/08/22 02:26 [facility] tazobactam [From Zosyn] Allergy Unknown ON Verified 07/08/22 02:26 [facility] Home Medications Medication Instructions Recorded Confirmed Type acetaminophen 325 mg tablet 325 mg PO Q4H PRN Pain 07/08/22 07/08/22 History (Tylenol) albuterol sulfate 90 mcg/actuation 2 puff inhalation Q4H PRN 07/08/22 07/08/22 History aerosol inhaler Shortness Of Breath Or Wheezing albuterol sulfate 90 mcg/actuation 2 puff inhalation QID 07/08/22 07/08/22 History aerosol inhaler amiodarone 200 mg tablet 200 mg PO DAILY 07/08/22 07/08/22 History apixaban 5 mg tablet (Eliquis) 5 mg PO BID 07/08/22 07/08/22 History atorvastatin 80 mg tablet 80 mg PO DAILY 07/08/22 07/08/22 History bisacodyl 10 mg rectal suppository 10 mg [place] DAILY PRN Constipation 07/08/22 07/08/22 History clopidogrel 75 mg tablet (Plavix) 75 mg PO DAILY 07/08/22 07/08/22 History docusate sodium 100 mg capsule 100 mg PO BID 07/08/22 07/08/22 History empagliflozin 10 mg tablet 10 mg PO QAM 07/08/22 07/08/22 History (Jardiance) furosemide 20 mg tablet (Lasix) 20 mg PO QAM 07/08/22 07/08/22 History magnesium hydroxide 400 mg/5 mL 15 ml PO DAILY PRN Constipation 07/08/22 07/08/22 History oral suspension (Milk of Magnesia) ondansetron HCl 4 mg tablet 4 mg PO Q4H PRN NAUSEA/VOMITING 07/08/22 07/08/22 History pantoprazole 40 mg tablet,delayed 40 mg PO DAILYBB 07/08/22 07/08/22 History release polyethylene glycol 3350 17 17 g PO QDL PRN Constipation 07/08/22 07/08/22 History gram/dose oral powder (Miralax) sacubitril 24 mg-valsartan 26 mg 1 tab PO BID 07/08/22 07/08/22 History tablet sennosides 8.6 mg-docusate sodium 1 tab-cap PO QDL PRN Constipation 07/08/22 07/08/22 History 50 mg tablet (Senokot-S) sodium phosphates 19 gram-7 118 ml [place] DAILY PRN Constipation 07/08/22 07/08/22 History gram/118 mL enema (Fleet Enema) spironolactone 25 mg tablet 25 mg PO DAILY 07/08/22 07/08/22 History umeclidinium 62.5 mcg/actuation 1 inh inhalation DAILY 07/08/22 07/08/22 History blister powder for inhalation Patient History Medical History (Updated 07/11/22 @ 15:07 by Diana Collins DNP) Advanced care planning/counseling discussion Alcohol use disorder HTN (hypertension) Lung nodule Palliative care encounter Surgical History Hx of colonoscopy Family History Other Cancer Hypertension Social History Smoking Status: Former smoker Tobacco Type: Cigarettes Hx Alcohol Use: Yes Alcohol type: beer Alcohol type Comment: 5 beers nightly, last drink 05/30/22 Hx Substance Use: No Preferred Language: Bhutanese Communication Ability: Effective Manager Call Center Required: No Beliefs That Will Affect Care: None Current Living Situation: Family Feels Safe at Home: Yes Safety Concerns: Feels Safe At This Time Assistive Devices: Denture - Upper, Denture - Lower and Glasses Review of Systems Review of Systems: All systems reviewed & are unremarkable except as noted in Subjective Physical Exam Physical Exam: Frail appearing, cachectic male semireclined in bed. No acute distress. Surgical scar right upper chest well-healed. Patient is awake alert and oriented x3. Breathing is slightly effortful with prolonged conversation. There is some mild use of accessory muscles but he is otherwise quite comfortable at rest and does not endorse any distress. There is no JVD. S1-S2 are noted. Abdomen is scaphoid but nontender. Bowel sounds are present. There is no peripheral edema appreciated. Extremities are thin and there is some generalized weakness but skin is warm to touch and there is no cyanosis appreciated. Patient is cooperative and engaged with this examiner. Results & Data ([place]) Vital Signs (Past 12 Hours) Vital Signs Temp Pulse Resp BP Pulse Ox O2 Del Method O2 Flow Rate 07/11/22 07:47 36.4 C L 88 20 92/55 L 99 Nasal Cannula 2 07/11/22 07:30 88 18 96 Nasal Cannula 2 07/11/22 03:43 36.6 C 90 18 98/61 L 97 Nasal Cannula 3.0 07/10/22 23:01 36.8 C 92 H 20 100/61 96 Nasal Cannula 3.0 Laboratory Results Data reviewed Diagnostic Findings Data reviewed, [facility] data reviewed via EMR link. PG Care Time/CCT Total # of Minutes Spent Total Time Spent: 55 Total Time Spent with Patient: Total time spent is greater than 50% in coordination of care (as documented) at patient's floor/unit and/or counseling patient: Coding Level of Care Code New Pt INP/OBS CONSULT LVL 5, 80 MIN Patient Type New History Detailed Exam Detailed Medical Decision Making Moderate Complexity Diagnoses Palliative care encounter Z51.5 Advanced care planning/counseling discussion Z71.89 Respiratory failure with hypoxia and hypercapnia J96.01; J96.02; J96.02 Chronicity: acute CAD (coronary artery disease) I25.10 NSTEMI (non-ST elevation myocardial infarction) I21.4 Heart failure with reduced ejection fraction I50.20
[2022-07-11] MEDS ORDERED: FUROSEMIDE INJ 20 MG/2 ML VIAL IV ONE (10:30)
[2022-07-11] MEDS: methylPREDNISolone 40 MG in SYRINGE 0 ML IV SCH (11:09)
[2022-07-11] MEDS: PANTOprazole 40 MG in SYRINGE 0 ML IV SCH ×2 (11:10→20:35)
--- NOTE | 2022-07-11 13:22 | Pulmonology Progress Note ---
Date of Service July 11, 2022 Assessment & Plan (1) Acute heart failure with reduced ejection fraction and diastolic dysf unction: (2) Pneumonia: (3) COPD exacerbation: (4) CAD (coronary artery disease): (5) HTN (hypertension): Plan Reason Critically Ill: 66yo male with PMHx significant for alcohol abuse, history of tobacco abuse, history of non-ST elevated SC, history of CHF, hypertension, shock liver, chest wall hematoma presents with complaints of shortness of breath. * Multifocal Pneumonia: * Complicated in the patient with known COPD. * Improved on Cefepime/Doxy, BiPAP, Steroids. * Now saturating well on 2L NC * Has not used his BiPAP for >24 hours as he feels he hasn't needed it. * Complete course of antibiotic as you have been. * Titrate down will wean down steroids. * Continue w/ inhalers as needed. * Otherwise, patient has shown great improvement from inital presentation. Admission and Anticipated Discharge Date Admission Date: July 08, 2022 Supervising Physician Co-Signing Physician Notes Patient seen and examined. EMR reviewed. Discussed with off going pulmonary critical care provider and with GUNNAR. Agree with assessment plan as noted. Patient appears to be doing relatively well from a respiratory standpoint. He states he breathes better at night and sleeps better without CPAP. He does ca rry a diagnosis of COPD but is not coughing wheezing or exhibiting significant respiratory issues. He is receiving his inhalers but is unclear if they are offering him a significant clinical benefit. Recommend continuing pulmonary toilet out of bed to chair as tolerated incentive spirometry and flutter valve. Patient does not demonstrate recurrent hypercarbia and I do not think he needs CPAP or BiPAP at night unless outpatient sleep study confirms that need. He is not overtly bronchospastic at this point in time, will transition steroids to oral. 1 more day of steroids then can they can be discontinued. Patient is completed 4 days of doxycycline. Can discontinue after tomorrow. This point time the patient appears to be doing relatively well from a respiratory standpoint. Pulmonary will sign off at this point time. Feel free to contact us with additional questions or concerns. Subjective Patient seen and evaluated at bedside today. He reports that he remains with a cough, but that his symptoms have improved. He is currently saturating in the high 90s on 2 L nasal cannula. He states that his breathing is greatly improved since he initially presented a few days ago Review of Systems Review of Systems: A complete 10 point review of systems was reviewed with the patient with pertinent positives and negatives as per history of present illness. All else were negative. Physical Exam Physical Exam: VITAL SIGNS - Vital signs and nursing notes were reviewed. GENERAL - 66-year-old male appearing his stated age who is in no acute distress. Communicates well with provider and answers questions appropriately. SKIN - Large, resolving hematoma noted to the RIGHT sided chest. MOUTH/OROPHARYNX - Without perioral cyanosis. Buccal mucosa pink and moist. NECK - Neck with FROM. Supple to palpation. LUNGS - Slight bibasilar rales noted. Distant breath sounds throughout otherwise. CARDIAC - RRR with S1/S2. No murmur, rubs, or gallops appreciated. ABDOMEN - Abdominal contour scaphoid without pulsations or visible masses. BS normoactive all four quadrants. No tenderness, palpable masses, hepatosplenomegaly, or ascites noted. EXTREMITIES - No clubbing or peripheral cyanosis. No pretibial edema present. +3/5 radial and dorsalis pedis pulses palpated throughout. Results & Data Results & Data ([facility]) Vital Signs (Past 12 Hours) Vital Signs Temp Pulse Resp BP Pulse Ox Pulse Ox O2 Del Method 07/11/22 11:00 93 07/11/22 11:45 36.6 C 94 H 18 92/55 L 97 Nasal Cannula 07/11/22 07:47 36.4 C L 88 20 92/55 L 99 Nasal Cannula 07/11/22 07:30 88 18 96 Nasal Cannula 07/11/22 03:43 36.6 C 90 18 98/61 L 97 Nasal Cannula O2 Del Method O2 Flow Rate O2 Flow Rate 07/11/22 11:00 Nasal Cannula 3 07/11/22 11:45 2 07/11/22 07:47 2 07/11/22 07:30 2 07/11/22 03:43 3.0 PG Care Time/CCT Total # of Minutes Spent Total Time Spent with Patient: Total time spent is greater than 50% in coordination of care (as documented) at patient's floor/unit and/or counseling patient: Coding Level of Care Code 25677 SUB INP/OBS CARE 3/50MIN Diagnoses Acute heart failure with reduced ejection fraction and diastolic dysfunction I50.41 Pneumonia J18.9 COPD exacerbation J44.1 CAD (coronary artery disease) I25.10 HTN (hypertension) I10 Time Spent (min) 35
--- NOTE | 2022-07-11 14:08 | Electrocardiogram Report ---
Test Reason : Blood Pressure : / mmHG Vent. Rate : 088 BPM Atrial Rate : 088 BPM P-R Int : 184 ms QRS Dur : 098 ms QT Int : 404 ms P-R-T Axes : 077 124 000 degrees QTc Int : 488 ms Poor data quality, interpretation may be adversely affected Normal sinus rhythm Incomplete right bundle branch block Right axis deviation Pulmonary disease pattern Prolonged QT Abnormal ECG When compared with ECG of 10-JUL-2022 05:23, No significant change was found Confirmed by Mich Cross ([id number]) on 07/11/2022 2:08:42 PM Referred By: REFERRED SELF Confirmed By:Mich Cross
[2022-07-12] MEDS: IPRATROPIUM BROMIDE NEB SOLN 0.02% 2.5 ML VIAL INH SCH ×4 (00:41→20:09)
[2022-07-12] MEDS: LEVALBUTEROL 1.25MG/0.5ML NEB INH SCH ×4 (00:41→20:09)
[2022-07-12 06:27] LABS: Hematocrit (blood only) 29.1 % (40.1-51.0); Hemoglobin 9.2 g/dl (14.0-18.0); Mean Corpuscular Hemoglobin 29.5 pg (25.0-34.0); Mean Corpuscular Hgb Conc 31.6 g/dL (32.0-36.0); Mean Corpuscular Volume 93.3 fL (80.0-100.0); Mean Platelet Volume 10.5 fL (9.4-12.4); Platelet Count 227 K/uL (130-400); RDW Coefficient of Variation 15.9 % (11.5-14.5); RDW Standard Deviation 54.2 fL (36.4-46.3); Red Blood Count 3.12 M/uL (4.63-6.08); White Blood Count 9.78 K/ul (4.8-10.8)
[2022-07-12 06:55] LABS: BUN Creatinine Ratio 39.7 (10-20); Calcium 8.3 mg/dl (8.5-10.1); Creatinine Clr Calc Pharmacy 85.7 ml/min; Est GFR (African American) 122.3 ml/min; Est GFR (Non-African American) 105.5 ml/min; Magnesium 1.7 mg/dl (1.7-2.4); Phosphorus 2.5 mg/dl (2.5-4.9); Potassium 3.6 mmol/L (3.5-5.1)
[2022-07-12] MEDS: BUDESONIDE 0.5 MG/2 ML VIAL (PULMICORT) NEB SCH ×2 (06:55→20:09)
[2022-07-12] MEDS: FORMOTEROL 20 MCG/2 ML VIAL INH SCH ×2 (06:55→20:09)
[2022-07-12] MEDS: INSULIN ASPART PER UNIT SC SCH ×4 (08:13→21:15)
[2022-07-12] MEDS: APIXABAN 5 MG TABLET PO SCH ×2 (08:19→21:31)
[2022-07-12] MEDS: ATORVASTATIN 40 MG TAB PO SCH (08:19)
[2022-07-12] MEDS: AMIODARONE 200 MG TAB PO SCH (08:19)
[2022-07-12] MEDS: CLOPIDOGREL BISULFATE 75 MG TAB PO SCH (08:20)
[2022-07-12] MEDS: guaiFENesin 600 MG TABCR PO SCH ×2 (08:20→21:32)
[2022-07-12] MEDS: PANTOprazole 40 MG in SYRINGE 0 ML IV SCH ×2 (08:20→21:31)
[2022-07-12] MEDS: DOXYCYCLINE HYCLATE 100 MG CAP PO SCH ×2 (08:20→21:31)
[2022-07-12] MEDS: predniSONE 20 MG TAB PO SCH (08:20)
[2022-07-12] MEDS: UMECLIDINIUM BROMIDE 62.5MCG/BLISTER 7 PUFFS/INHALER INH SCH (08:21)
--- NOTE | 2022-07-12 08:36 | Hospitalist Progress Note ---
Date of Service July 12, 2022 Assessment & Plan (1) Respiratory failure with hypoxia and hypercapnia: (2) Pulmonary edema: (3) Pneumonia: (4) CAD (coronary artery disease): Plan: This is a 66-year-old male who presents with acute shortness of breath. 1. Acute respiratory failure, most likely secondary to [id number] systolic CHF, and multifocal pna Last echo was in last admission with 20-25% EF. Received a dose of Lasix IV 40 in the ER. Continued w/ IV Lasix as BP tolerates Hold Entresto and spironolactone d/t hypotension. Daily weights, I's and O's. Repeat Echo Compared with study dated May 31, 2022, LV systolic function has significantly improved. LV systolic function is mildly reduced EF 45 to 50%. There is moderate mitral regurg. Diastolic dysfunction grade II. Patient on nitro drip in the ER but BP dropped. Transferred to ICU for possible pressor support and need for diuresis. 07/10 Currently off the BiPAP. Pt is on 3 L NC. Per RN, patient gets winded easily, on BiPAP yesterday Cardiology consulted for further recommendations. 07/11 currently on 2 L of O2 via nasal cannula, appears more comfortable 2. PNA, Poss. mild chronic obstructive pulmonary disease exacerbation. The patient has also history of chronic obstructive pulmonary disease. Chest CT obtained - multifocal pna, pt has leukocytosis. Empirically treating for chronic obstructive pulmonary disease exacerbation with IV Solu-Medrol, nebs around the clock and p.r.n. Continue antibiotics for pna - cefepime + doxy For COPD - on Incruse at home - added Brovana and Budesonide by pulmonary/ critical care team 3. Diabetes Hyperglycemic on admission, received IV insulin in ER. We will hold Jardiance. Placed on Lantus insulin sliding scale. Follow the blood sugars while the patient is on insulin. Glycemic - pharmacy consulted 4. Atrial fibrillation - was diagnosed in last admission to [facility], on amiodarone and Eliquis - eliquis resumed, hemoglobin stable 5. History of multivessel CAD. As per discharge from [place], status post multivessel PCI, on Plavix and statin. Repeated echocardiogram, as above Cardiology following 6. Mild elevation of troponin, mostly demand ischemia. Cardiology following 7. Hypertension: On Entresto, on hold for now. We will monitor blood pressure. BP on low side 8. Gastroesophageal reflux disease: On Protonix. 9. Hx of tobacco abuse and history of alcohol abuse. DVT ppx: Eliquis DISPOSITION:PCU CODE: full code. PT/OT. Social service to help with discharge planning. Admission and Anticipated Discharge Date Admission Date: July 08, 2022 Subjective Patient seen in follow-up of hypotension, respiratory failure, heart failure exacerbation, pneumonia. Recent history of complicated hospital course. Currently sitting up in chair, on supplemental oxygen, 2L, talking to o ccupational therapist Appears more comfortable than before Previously patient would rozina winded easily, required BiPAP. Now says he was able to ambulate in hallway. Denies any chest pain. Denies abdominal pain. will give additional dose of lasix today Seen by Palliative medicine yesterday - wishes to remain full code Review of Systems Review of Systems: All systems reviewed & are unremarkable except as noted in Subjective Physical Exam Physical Exam: GENERAL: thin and frail, currently not in acute distress, on 2L HEENT: Pupils equal, round and reactive to light. No facial droop NECK: No neck masses seen. CARDIOVASCULAR: S1 and S2 heard. Regular rate and rhythm. No murmur, no gallop. RESPIRATORY: Normal AP diameter. No accessory muscle use.+ crackles ABDOMEN: Soft, bowel sounds present, nontender, no distention. NEURO: Alert and awake, somewhat hard of hearing. No facial droop. Obeys simple commands. Moves extremities. EXTREMITIES: No obvious edema or erythema seen. Results & Data Results & Data ([facility]) Vital Signs (Past 12 Hours) Vital Signs Temp Pulse Pulse Resp BP Pulse Ox O2 Del Method 07/12/22 08:04 36.4 C L 92 H 20 104/48 L 96 Nasal Cannula 07/12/22 06:55 86 18 90 Nasal Cannula 07/12/22 02:56 36.8 C 89 18 91/55 L 93 Nasal Cannula 07/12/22 00:41 84 18 97 Nasal Cannula 07/11/22 23:26 36.5 C 86 18 94/52 L 98 Nasal Cannula 07/11/22 23:24 86 O2 Flow Rate 07/12/22 08:04 2 07/12/22 06:55 2 07/12/22 02:56 2 07/12/22 00:41 2 07/11/22 23:26 2 07/11/22 23:24 Laboratory Results 07/12/22 07/12/22 07/12/22 Range/Units 07:22 05:51 05:51 WBC 9.78 (4.8-10.8) K/ul RBC 3.12 L (4.63-6.08) M/uL Hgb 9.2 L (14.0-18.0) g/dl Hct 29.1 L (40.1-51.0) % MCV 93.3 (80.0-100.0) fL MCH 29.5 (25.0-34.0) pg MCHC 31.6 L (32.0-36.0) g/dL RDW Std Deviation 54.2 H (36.4-46.3) fL RDW Coeff of Gordon 15.9 H (11.5-14.5) % Plt Count 227 (130-400) K/uL MPV 10.5 (9.4-12.4) fL Sodium 134 L (136-145) mmol/L Potassium 3.6 (3.5-5.1) mmol/L Chloride 98 (98-107) mmol/L Carbon Dioxide 31 (21-32) mmol/L Anion Gap 5 (3-11) BUN 23 (6-23) mg/dl Creatinine 0.58 L (0.6-1.4) mg/dl Est Cr Clr Drug Dosing 85.7 ml/min Est GFR ( Amer) 122.3 ml/min Est GFR (Non-Af Amer) 105.5 ml/min BUN/Creatinine Ratio 39.7 H (10-20) Glucose 109 H (70-99(Fasting)) mg/dl POC Glucose 106 H (70-99) mg/dl Calcium 8.3 L (8.5-10.1) mg/dl Phosphorus 2.5 (2.5-4.9) mg/dl Magnesium 1.7 (1.7-2.4) mg/dl 07/11/22 07/11/22 07/11/22 Range/Units 20:09 16:30 11:10 WBC (4.8-10.8) K/ul RBC (4.63-6.08) M/uL Hgb (14.0-18.0) g/dl Hct (40.1-51.0) % MCV (80.0-100.0) fL MCH (25.0-34.0) pg MCHC (32.0-36.0) g/dL RDW Std Deviation (36.4-46.3) fL RDW Coeff of Gordon (11.5-14.5) % Plt Count (130-400) K/uL MPV (9.4-12.4) fL Sodium (136-145) mmol/L Potassium (3.5-5.1) mmol/L Chloride (98-107) mmol/L Carbon Dioxide (21-32) mmol/L Anion Gap (3-11) BUN (6-23) mg/dl Creatinine (0.6-1.4) mg/dl Est Cr Clr Drug Dosing ml/min Est GFR ( Amer) ml/min Est GFR (Non-Af Amer) ml/min BUN/Creatinine Ratio (10-20) Glucose (70-99(Fasting)) mg/dl POC Glucose 158 H 131 H 123 H (70-99) mg/dl Calcium (8.5-10.1) mg/dl Phosphorus (2.5-4.9) mg/dl Magnesium (1.7-2.4) mg/dl Medications Administered Current Inpatient Medications Acetaminophen (Acetaminophen 325 Mg Tab) 650 mg PO Q4H PRN PRN Reason: Pain or Fever Stop: 08/07/22 06:11 Albuterol (Albuterol Hfa 8 Gm Inhaler) 2 puffs INH Q4H PRN PRN Reason: Shortness Of Breath Or Wheezin Stop: 08/07/22 06:11 Amiodarone HCl (Amiodarone 200 Mg Tab) 200 mg PO DAILY [facility] Stop: 08/07/22 08:59 Last Admin: 07/12/22 08:19 Dose: 200 mg Apixaban (Apixaban 5 Mg Tablet) 5 mg PO BID [facility] Stop: 08/07/22 08:59 Last Admin: 07/12/22 08:19 Dose: 5 mg Atorvastatin Calcium (Atorvastatin 40 Mg Tab) 80 mg PO DAILY [facility] Stop: 08/07/22 08:59 Last Admin: 07/12/22 08:19 Dose: 80 mg Bisacodyl (Bisacodyl 10 Mg Supp) 10 mg MD DAILY PRN PRN Reason: Constipation Stop: 08/07/22 06:11 Budesonide (Budesonide 0.5 Mg/2 Ml Vial (Pulmicort)) 0.5 mg NEB BIDR [facility] Stop: 08/08/22 18:59 Last Admin: 07/12/22 06:55 Dose: 0.5 mg Clopidogrel Bisulfate (Clopidogrel Bisulfate 75 Mg Tab) 75 mg PO DAILY [facility] Stop: 08/07/22 08:59 Last Admin: 07/12/22 08:20 Dose: 75 mg Dextrose (Dextrose 50% 50 Ml Syringe) 25 - 50 ml IV UD PRN; Protocol PRN Reason: Hypoglycemia Protocol Stop: 08/07/22 06:11 Docusate Sodium (Docusate Sodium 100 Mg Cap) 100 mg PO BID [facility] Stop: 08/07/22 08:59 Last Admin: 07/11/22 20:38 Dose: 100 mg Doxycycline Hyclate (Doxycycline Hyclate 100 Mg Cap) 100 mg PO BID [facility] Stop: 07/15/22 06:59 Last Admin: 07/12/22 08:20 Dose: 100 mg Formoterol Fumarate (Formoterol 20 Mcg/2 Ml Vial) 20 mcg INH BIDR [facility] Stop: 08/08/22 18:59 Last Admin: 07/12/22 06:55 Dose: 20 mcg Furosemide (Furosemide 40 Mg/4 Ml Vial) 40 mg IV BID17 [facility] Stop: 08/07/22 08:59 Glucagon (Glucagon For Inj 1 Mg Vial) 1 mg SQ UD PRN; Protocol PRN Reason: Hypoglycemia Protocol Stop: 08/07/22 06:11 Glucose (Glucose 40% Gel 15 Gm Tube) 15 - 30 gm PO UD PRN; Protocol PRN Reason: Hypoglycemia Protocol Stop: 08/07/22 06:11 Glucose (Glucose 10 Tab/Tube) 4 - 8 tab PO UD PRN; Protocol PRN Reason: Hypoglycemia Treatment Stop: 08/07/22 06:11 Guaifenesin (Guaifenesin 600 Mg Tabcr) 1,200 mg PO Q12 [facility] Stop: 08/09/22 20:59 Last Admin: 07/12/22 08:20 Dose: 1,200 mg Pantoprazole Sodium 40 mg/ (Syringe) 10 mls @ 5 mls/min IV BID [facility] Stop: 08/08/22 08:59 Last Admin: 07/12/22 08:20 Dose: 5 mls/min Insulin Aspart (Insulin Aspart Per Unit) 0 units SC ACHS [facility] Stop: 08/07/22 16:29 Last Admin: 07/12/22 08:13 Dose: 3 units Ipratropium [place] (Ipratropium [place] Neb Soln 0.02% 2.5 Ml Vial) 0.5 mg INH Q6R [facility] Stop: 08/07/22 06:59 Last Admin: 07/12/22 07:21 Dose: Not Given Levalbuterol HCl (Levalbuterol 1.25mg/0.5ml Neb) 1.25 mg INH Q6R [facility] Stop: 08/07/22 06:59 Last Admin: 07/12/22 07:21 Dose: Not Given Levalbuterol HCl (Levalbuterol 1.25mg/0.5ml Neb) 1.25 mg NEB Q2H PRN; Protocol PRN Reason: Shortness Of Breath Or Wheezing Stop: 08/07/22 06:11 Magnesium Oxide (Magnesium Oxide 400 Mg Tab) 400 mg PO QAM [facility] Stop: 08/11/22 08:59 Miscellaneous (Carbohydrates For Hypoglycemia ) 15 - 30 gm PO UD PRN PRN Reason: Hypoglycemia Protocol Stop: 08/07/22 06:11 Miscellaneous Information (Pharmacy Glycemic Mgmt Consult) 1 each N/A UD PRN PRN Reason: Consult Stop: 08/07/22 06:11 Nitroglycerin (Nitroglycerin Sl 0.4 Mg/Tab Tab) 0.4 mg SL UD PRN PRN Reason: Chest Pain Stop: 08/07/22 06:11 Polyethylene Glycol (Polyethylene (Miralax) 17 Gm Pack) 17 gm PO QDL PRN PRN Reason: Constipation Stop: 08/07/22 06:11 Potassium Chloride (Potassium Chloride Pwd 20 Meq Pack) 20 meq PO ONE ONE Stop: 07/12/22 08:34 Prednisone (Prednisone 20 Mg Tab) 20 mg PO DAILY [facility] Stop: 08/11/22 08:59 Last Admin: 07/12/22 08:20 Dose: 20 mg Sacubitril/Valsartan (Valsartan/Sacubitril 26/24mg Tab) 1 tab PO BID [facility] Stop: 08/07/22 08:59 Senna/Docusate Sodium (Docusate Sodium/Senna 50/8.6mg Tab) 1 tab PO QDL PRN PRN Reason: Constipation Stop: 08/07/22 06:11 Sodium Biphosphate/Sodium Phosphate (Sod Phosphate/Sod Biphosphate Enema 132 Ml Btl) 118 ml MD DAILY PRN PRN Reason: Constipation Stop: 08/07/22 06:11 Spironolactone (Spironolactone 25 Mg Tab) 25 mg PO DAILY [facility] Stop: 08/07/22 08:59 Umeclidinium [place] (Umeclidinium [place] 62.5mcg/Blister 7 Puffs/Inhaler) 1 puffs INH DAILY [facility] Stop: 08/07/22 08:59 Last Admin: 07/12/22 08:21 Dose: 1 puffs (1) Respiratory failure with hypoxia and hypercapnia Chronicity: acute Qualified Code(s): J96.01 - Acute respiratory failure with hypoxia; J96.02 - Acute respiratory failure with hypercapnia; J96.02 - Acute respiratory failure with hypercapnia (2) Pulmonary edema Chronicity: acute Qualified Code(s): J81.0 - Acute pulmonary edema
[2022-07-12] MEDS ORDERED: POTASSIUM CHLORIDE PWD 20 MEQ PACK PO ONE (08:45)
[2022-07-12] MEDS ORDERED: FUROSEMIDE INJ 20 MG/2 ML VIAL IV ONE (08:45)
[2022-07-12] MEDS: DOCUSATE SODIUM 100 MG CAP PO SCH ×2 (09:13→22:14)
[2022-07-12] MEDS: MAGNESIUM OXIDE 400 MG TAB PO SCH (09:14)
--- NOTE | 2022-07-12 09:40 | XRay Report ---
XR chest 1V portable CLINICAL HISTORY: Pleural effusion TECHNIQUE: Single frontal radiograph of the chest was obtained. Comparison: Comparison is made to chest radiograph 07/11/[address] chest 07/08/2022 FINDINGS: No lines and tubes are seen. Calcified aortic knob is seen. Multifocal airspace opacities are seen al kim with chronic changes seen in the. Small bilateral pleural effusions are seen. Redemonstration of surgical clips around the previously noted right pectoral/axillary mass. IMPRESSION: 1. Multifocal airspace opacities are again seen, favored to represent multifocal pneumonia. 2. Redemonstration of surgical clips in the right pectoral/axillary region. 3. Small bilateral pleural effusions. ACT 112: Negative or not required by law. Electronically signed by: Chuy Fields M.D. 07/12/2022 9:38 AM
--- NOTE | 2022-07-12 10:27 | Pharmacy Report ---
Pharmacy Glycemic Short Note 2 - Date of Service July 12, 2022 - Glycemic Short BSG Results (Last 24 hours): 07/11/22 07/11/22 07/11/22 11:10 16:30 20:09 Glucose POC Glucose 123 H 131 H 158 H 07/12/22 07/12/22 05:51 07:22 Glucose 109 H POC Glucose 106 H OUTPATIENT ANTIDIABETIC REGIMEN: * Empagliflozin 10mg PO qAM * HbA1c: 5.3% (07/08/22) ASSESSMENT: 07/12/22: * Mr Clement has been receiving ~10 units of insulin per day for the past couple of days. This has mostly been for carb coverage (which is appropriate, as patient has been on prednisone and steroids exhibit their greatest effect on post-prandial BSGs). * Prednisone dose is tapering further today. Expect that they will be discontinued soon. * Anticipate that patient's insulin requirements will decrease as steroids taper/stop. Will likely need to remove carb coverage once prednisone is discontinued. * No changes required at this time. 07/08 * Mr Clement is a 66yo male admitted with shortness of breath. * PMH is significant for alcohol/tobacco abuse, hx NSTEMI, CHF, HTN, CHF * Pt was significantly hyperglycemic (on both lab draw and POC --> BSGs 335 and 327 mg/dL respectively) on presentation to ED. * Pt was given a small dose of IV insulin (5 units) and next BSG check was 31 mg/dL on lab draw. * Pt received 125mg IV SoluMedrol in ED, with 40mg IV q8h ordered on admission. This is expected to lead to steroid-induced hyperglycemia, but BSGs do not reflect this so far. * Novolog ordered for correction, should patient become hyperglycemic. * No basal insulin or carb coverage ordered at this time in light of patient's recent hypoglycemic episode and degree of insulin sensitivity observed after small IV insulin dose received. PLAN FOR INPATIENT GLYCEMIC CONTROL: * Hold outpatient oral diabetes medications * Basal insulin * none at this time * Bolus insulin * NovoLog per scale ACHS or Q6hrs while NPO * Goal Range: Low 110 mg/dL - High 140 mg/dL * Correction Factor: 45 mg/dL/unit * Nutritional / Prandial insulin: 1 unit per 10 gm CHO consumed
[2022-07-13] MEDS: LEVALBUTEROL 1.25MG/0.5ML NEB INH SCH ×4 (01:13→19:25)
[2022-07-13] MEDS: IPRATROPIUM BROMIDE NEB SOLN 0.02% 2.5 ML VIAL INH SCH ×4 (01:13→19:25)
[2022-07-13 06:34] LABS: Hematocrit (blood only) 29.1 % (40.1-51.0); Hemoglobin 9.1 g/dl (14.0-18.0); Mean Corpuscular Hemoglobin 29.4 pg (25.0-34.0); Mean Corpuscular Hgb Conc 31.3 g/dL (32.0-36.0); Mean Corpuscular Volume 93.9 fL (80.0-100.0); Mean Platelet Volume 10.3 fL (9.4-12.4); Platelet Count 211 K/uL (130-400); RDW Coefficient of Variation 15.8 % (11.5-14.5); White Blood Count 10.34 K/ul (4.8-10.8)
[2022-07-13 07:05] LABS: BUN Creatinine Ratio 39.3 (10-20); Calcium 8.3 mg/dl (8.5-10.1); Creatinine Clr Calc Pharmacy 89.6 ml/min; Est GFR (African American) 124.1 ml/min; Magnesium 1.6 mg/dl (1.7-2.4); Phosphorus 2.6 mg/dl (2.5-4.9); Potassium 3.9 mmol/L (3.5-5.1)
[2022-07-13] MEDS: FORMOTEROL 20 MCG/2 ML VIAL INH SCH ×2 (07:06→19:03)
[2022-07-13] MEDS: BUDESONIDE 0.5 MG/2 ML VIAL (PULMICORT) NEB SCH ×2 (07:06→19:03)
[2022-07-13] MEDS: INSULIN ASPART PER UNIT SC SCH ×4 (08:26→20:17)
[2022-07-13] MEDS: AMIODARONE 200 MG TAB PO SCH (08:26)
[2022-07-13] MEDS: MAGNESIUM OXIDE 400 MG TAB PO SCH ×2 (08:27→20:17)
[2022-07-13] MEDS: CLOPIDOGREL BISULFATE 75 MG TAB PO SCH (08:27)
[2022-07-13] MEDS: APIXABAN 5 MG TABLET PO SCH ×2 (08:27→20:18)
[2022-07-13] MEDS: ATORVASTATIN 40 MG TAB PO SCH (08:27)
[2022-07-13] MEDS: guaiFENesin 600 MG TABCR PO SCH ×2 (08:27→20:18)
[2022-07-13] MEDS: predniSONE 20 MG TAB PO SCH (08:27)
[2022-07-13] MEDS: DOXYCYCLINE HYCLATE 100 MG CAP PO SCH ×2 (08:27→20:19)
[2022-07-13] MEDS: UMECLIDINIUM BROMIDE 62.5MCG/BLISTER 7 PUFFS/INHALER INH SCH (08:27)
[2022-07-13] MEDS: PANTOprazole 40 MG in SYRINGE 0 ML IV SCH ×2 (08:28→20:18)
[2022-07-13] MEDS: DOCUSATE SODIUM 100 MG CAP PO SCH ×2 (08:34→20:19)
--- NOTE | 2022-07-13 11:03 | Hospitalist Progress Note ---
Date of Service July 13, 2022 Assessment & Plan (1) Respiratory failure with hypoxia and hypercapnia: (2) Pulmonary edema: (3) Pneumonia: (4) CAD (coronary artery disease): Plan: This is a 66-year-old male who presents with acute shortness of breath. 1. Acute respiratory failure, most likely secondary to [id number] systolic CHF, and multifocal pna Last echo was in last admission with 20-25% EF. Received a dose of Lasix IV 40 in the ER. Continued w/ IV Lasix as BP tolerates Hold Entresto and spironolactone d/t hypotension. Daily weights, I's and O's. Repeat Echo Compared with study dated May 31, 2022, LV systolic function has significantly improved. LV systolic function is mildly reduced EF 45 to 50%. There is moderate mitral regurg. Diastolic dysfunction grade II. Patient on nitro drip in the ER but BP dropped. Transferred to ICU for possible pressor support and need for diuresis. 07/10 Currently off the BiPAP. Pt is on 3 L NC. Per RN, patient gets winded easily, on BiPAP yesterday Cardiology consulted for further recommendations. 07/13 patient currently on 2 L of submental oxygen. Will obtain 2 step study. Entresto, spironolactone, were on hold while patient hospitalized. IV Lasix used. BP on lower side, breathing improved. We will hold Lasix today. Chest x-ray obtained 1. Mild interstitial pulmonary edema with small bilateral pleural effusions. T his is similar to the prior study. 2. Patchy bibasilar densities persist and may represent atelectasis from the pleural effusions or a pneumonia.. Patient is eager for discharge home. PT OT obtained. Likely resume Entresto tomorrow, monitor BP. Spironolactone and home Lasix on hold. 2. PNA, Poss. mild chronic obstructive pulmonary disease exacerbation. The patient has also history of chronic obstructive pulmonary disease. Chest CT obtained - multifocal pna, pt has leukocytosis. Empirically treating for chronic obstructive pulmonary disease exacerbation with IV Solu-Medrol, nebs around the clock and p.r.n. Continue antibiotics for pna - cefepime + doxy -> switch to PO cefuroxime + doxy For COPD - on Incruse at home - added Brovana and Budesonide by pulmonary/c ritical care team 3. Diabetes Hyperglycemic on admission, received IV insulin in ER. We will hold Jardiance. Placed on Lantus insulin sliding scale. Follow the blood sugars while the patient is on insulin. Glycemic - pharmacy consulted 4. Atrial fibrillation - was diagnosed in last admission to [place], on amiodarone and Eliquis - eliquis resumed, hemoglobin stable 5. History of multivessel CAD. As per discharge from [place], status post multivessel PCI, on Plavix and statin. Repeated echocardiogram, as above Cardiology following 6. Mild elevation of troponin, mostly demand ischemia. Cardiology following 7. Hypertension: On Entresto, on hold for now. We will monitor blood pressure. BP on low side. Plan to restart Entresto tomorrow if BP allows. 8. Gastroesophageal reflux disease: On Protonix. 9. Hx of tobacco abuse and history of alcohol abuse. DVT ppx: Eliquis DISPOSITION:PCU CODE: full code. PT/OT. Plan to DC home when medically stable. Admission and Anticipated Discharge Date Admission Date: July 08, 2022 Subjective Patient seen in follow-up of hypotension, respiratory failure, heart failure exacerbation, pneumonia. Recent history of complicated hospital course. Currently sitting up in bed, on supplemental oxygen, 2L Appears more comfortable and is inquiring about going home Previously patient would rozina winded easily, required BiPAP. Now says he was able to ambulate in hallway. Denies any chest pain. Denies abdominal pain. 2 step ordered Review of Systems Review of Systems: All systems reviewed & are unremarkable except as noted in Subjective Physical Exam Physical Exam: GENERAL: thin and frail, currently not in acute distress, on 2L HEENT: Pupils equal, round and reactive to light. No facial droop NECK: No neck masses seen. CARDIOVASCULAR: S1 and S2 heard. Regular rate and rhythm. No murmur, no gallop. RESPIRATORY: Normal AP diameter. No accessory muscle use.+ crackles ABDOMEN: Soft, bowel sounds present, nontender, no distention. NEURO: Alert and awake, somewhat hard of hearing. No facial droop. Obeys simple commands. Moves extremities. EXTREMITIES: No obvious edema or erythema seen. Results & Data Results & Data ([facility]) Vital Signs (Past 12 Hours) Vital Signs Temp Pulse Pulse Resp BP BP Pulse Ox 07/13/22 10:20 36.8 C 86 17 92/57 L 98 07/13/22 07:20 36.7 C 84 17 96/62 L 100 07/13/22 07:07 86 20 98 07/12/22 23:00 84 07/13/22 03:06 36.7 C 86 18 95/59 L 98 07/13/22 01:16 87 20 94 O2 Del Method O2 Flow Rate 07/13/22 10:20 Nasal Cannula 2 07/13/22 07:20 Nasal Cannula 2 07/13/22 07:07 Nasal Cannula 2 07/12/22 23:00 07/13/22 03:06 Nasal Cannula 2 07/13/22 01:16 Nasal Cannula 2 Laboratory Results 07/13/22 07/13/22 07/13/22 Range/Units 07:23 06:09 06:09 WBC 10.34 (4.8-10.8) K/ul RBC 3.10 L (4.63-6.08) M/uL Hgb 9.1 L (14.0-18.0) g/dl Hct 29.1 L (40.1-51.0) % MCV 93.9 (80.0-100.0) fL MCH 29.4 (25.0-34.0) pg MCHC 31.3 L (32.0-36.0) g/dL RDW Std Deviation 54.0 H (36.4-46.3) fL RDW Coeff of Gordon 15.8 H (11.5-14.5) % Plt Count 211 (130-400) K/uL MPV 10.3 (9.4-12.4) fL Sodium 133 L (136-145) mmol/L Potassium 3.9 (3.5-5.1) mmol/L Chloride 98 (98-107) mmol/L Carbon Dioxide 31 (21-32) mmol/L Anion Gap 4 (3-11) BUN 22 (6-23) mg/dl Creatinine 0.56 L (0.6-1.4) mg/dl Est Cr Clr Drug Dosing 89.6 ml/min Est GFR ( Amer) 124.1 ml/min Est GFR (Non-Af Amer) 107.0 ml/min BUN/Creatinine Ratio 39.3 H (10-20) Glucose 93 (70-99(Fasting)) mg/dl POC Glucose 95 (70-99) mg/dl Calcium 8.3 L (8.5-10.1) mg/dl Phosphorus 2.6 (2.5-4.9) mg/dl Magnesium 1.6 L (1.7-2.4) mg/dl 07/12/22 07/12/22 07/12/22 Range/Units 20:55 16:40 11:23 WBC (4.8-10.8) K/ul RBC (4.63-6.08) M/uL Hgb (14.0-18.0) g/dl Hct (40.1-51.0) % MCV (80.0-100.0) fL MCH (25.0-34.0) pg MCHC (32.0-36.0) g/dL RDW Std Deviation (36.4-46.3) fL RDW Coeff of Gordon (11.5-14.5) % Plt Count (130-400) K/uL MPV (9.4-12.4) fL Sodium (136-145) mmol/L Potassium (3.5-5.1) mmol/L Chloride (98-107) mmol/L Carbon Dioxide (21-32) mmol/L Anion Gap (3-11) BUN (6-23) mg/dl Creatinine (0.6-1.4) mg/dl Est Cr Clr Drug Dosing ml/min Est GFR ( Amer) ml/min Est GFR (Non-Af Amer) ml/min BUN/Creatinine Ratio (10-20) Glucose (70-99(Fasting)) mg/dl POC Glucose 104 H 119 H 113 H (70-99) mg/dl Calcium (8.5-10.1) mg/dl Phosphorus (2.5-4.9) mg/dl Magnesium (1.7-2.4) mg/dl Medications Administered Current Inpatient Medications Acetaminophen (Acetaminophen 325 Mg Tab) 650 mg PO Q4H PRN PRN Reason: Pain or Fever Stop: 08/07/22 06:11 Albuterol (Albuterol Hfa 8 Gm Inhaler) 2 puffs INH Q4H PRN PRN Reason: Shortness Of Breath Or Wheezin Stop: 08/07/22 06:11 Amiodarone HCl (Amiodarone 200 Mg Tab) 200 mg PO DAILY [facility] Stop: 08/07/22 08:59 Last Admin: 07/13/22 08:26 Dose: 200 mg Apixaban (Apixaban 5 Mg Tablet) 5 mg PO BID [facility] Stop: 08/07/22 08:59 Last Admin: 07/13/22 08:27 Dose: 5 mg Atorvastatin Calcium (Atorvastatin 40 Mg Tab) 80 mg PO DAILY [facility] Stop: 08/07/22 08:59 Last Admin: 07/13/22 08:27 Dose: 80 mg Bisacodyl (Bisacodyl 10 Mg Supp) 10 mg NM DAILY PRN PRN Reason: Constipation Stop: 08/07/22 06:11 Budesonide (Budesonide 0.5 Mg/2 Ml Vial (Pulmicort)) 0.5 mg NEB BIDR [facility] Stop: 08/08/22 18:59 Last Admin: 07/13/22 07:06 Dose: 0.5 mg Clopidogrel Bisulfate (Clopidogrel Bisulfate 75 Mg Tab) 75 mg PO DAILY [facility] Stop: 08/07/22 08:59 Last Admin: 07/13/22 08:27 Dose: 75 mg Dextrose (Dextrose 50% 50 Ml Syringe) 25 - 50 ml IV UD PRN; Protocol PRN Reason: Hypoglycemia Protocol Stop: 08/07/22 06:11 Docusate Sodium (Docusate Sodium 100 Mg Cap) 100 mg PO BID [facility] Stop: 08/07/22 08:59 Last Admin: 07/13/22 08:34 Dose: 100 mg Doxycycline Hyclate (Doxycycline Hyclate 100 Mg Cap) 100 mg PO BID [facility] Stop: 07/15/22 06:59 Last Admin: 07/13/22 08:27 Dose: 100 mg Formoterol Fumarate (Formoterol 20 Mcg/2 Ml Vial) 20 mcg INH BIDR [facility] Stop: 08/08/22 18:59 Last Admin: 07/13/22 07:06 Dose: 20 mcg Furosemide (Furosemide 40 Mg/4 Ml Vial) 40 mg IV [id number] [facility] Stop: 08/07/22 08:59 Glucagon (Glucagon For Inj 1 Mg Vial) 1 mg SQ UD PRN; Protocol PRN Reason: Hypoglycemia Protocol Stop: 08/07/22 06:11 Glucose (Glucose 40% Gel 15 Gm Tube) 15 - 30 gm PO UD PRN; Protocol PRN Reason: Hypoglycemia Protocol Stop: 08/07/22 06:11 Glucose (Glucose 10 Tab/Tube) 4 - 8 tab PO UD PRN; Protocol PRN Reason: Hypoglycemia Treatment Stop: 08/07/22 06:11 Guaifenesin (Guaifenesin 600 Mg Tabcr) 1,200 mg PO Q12 [facility] Stop: 08/09/22 20:59 Last Admin: 07/13/22 08:27 Dose: 1,200 mg Pantoprazole Sodium 40 mg/ (Syringe) 10 mls @ 5 mls/min IV BID [facility] Stop: 08/08/22 08:59 Last Admin: 07/13/22 08:28 Dose: 5 mls/min Insulin Aspart (Insulin Aspart Per Unit) 0 units SC ACHS [facility] Stop: 08/07/22 16:29 Last Admin: 07/13/22 08:26 Dose: 4 units Ipratropium [place] (Ipratropium [place] Neb Soln 0.02% 2.5 Ml Vial) 0.5 mg INH Q6R [facility] Stop: 08/07/22 06:59 Last Admin: 07/13/22 07:06 Dose: Not Given Levalbuterol HCl (Levalbuterol 1.25mg/0.5ml Neb) 1.25 mg INH Q6R [facility] Stop: 08/07/22 06:59 Last Admin: 07/13/22 07:06 Dose: Not Given Levalbuterol HCl (Levalbuterol 1.25mg/0.5ml Neb) 1.25 mg NEB Q2H PRN; Protocol PRN Reason: Shortness Of Breath Or Wheezing Stop: 08/07/22 06:11 Magnesium Oxide (Magnesium Oxide 400 Mg Tab) 400 mg PO QAM [facility] Stop: 08/11/22 08:59 Last Admin: 07/13/22 08:27 Dose: 400 mg Miscellaneous (Carbohydrates For Hypoglycemia ) 15 - 30 gm PO UD PRN PRN Reason: Hypoglycemia Protocol Stop: 08/07/22 06:11 Miscellaneous Information (Pharmacy Glycemic Mgmt Consult) 1 each N/A UD PRN PRN Reason: Consult Stop: 08/07/22 06:11 Nitroglycerin (Nitroglycerin Sl 0.4 Mg/Tab Tab) 0.4 mg SL UD PRN PRN Reason: Chest Pain Stop: 08/07/22 06:11 Polyethylene Glycol (Polyethylene (Miralax) 17 Gm Pack) 17 gm PO QDL PRN PRN Reason: Constipation Stop: 08/07/22 06:11 Prednisone (Prednisone 20 Mg Tab) 20 mg PO DAILY [facility] Stop: 08/11/22 08:59 Last Admin: 07/13/22 08:27 Dose: 20 mg Sacubitril/Valsartan (Valsartan/Sacubitril 26/24mg Tab) 1 tab PO BID [facility] Stop: 08/07/22 08:59 Senna/Docusate Sodium (Docusate Sodium/Senna 50/8.6mg Tab) 1 tab PO QDL PRN PRN Reason: Constipation Stop: 08/07/22 06:11 Sodium Biphosphate/Sodium Phosphate (Sod Phosphate/Sod Biphosphate Enema 132 Ml Btl) 118 ml NM DAILY PRN PRN Reason: Constipation Stop: 08/07/22 06:11 Spironolactone (Spironolactone 25 Mg Tab) 25 mg PO DAILY [facility] Stop: 08/07/22 08:59 Umeclidinium [place] (Umeclidinium [place] 62.5mcg/Blister 7 Puffs/Inhaler) 1 puffs INH DAILY [facility] Stop: 08/07/22 08:59 Last Admin: 07/13/22 08:27 Dose: 1 puffs (1) Respiratory failure with hypoxia and hypercapnia Chronicity: acute Qualified Code(s): J96.01 - Acute respiratory failure with hypoxia; J96.02 - Acute respiratory failure with hypercapnia; J96.02 - Acute respiratory failure with hypercapnia (2) Pulmonary edema Chronicity: acute Qualified Code(s): J81.0 - Acute pulmonary edema
--- NOTE | 2022-07-13 13:55 | XRay Report ---
XR chest 1V portable HISTORY: Pneumonia. Follow-up. COMPARISON: Chest 07/12/2022. FINDINGS: No pneumothorax. There are small bilateral pleural effusions and patchy bibasilar densities . This is similar to the prior study. Mild pulmonary edema persists. The heart remains mildly enlarge d. Surgical clips seen within the right axilla. Calcifications seen within the thoracic aorta. IMPRESSION: 1. Mild interstitial pulmonary edema with small bilateral pleural effusions. This is similar to the p rior study. 2. Patchy bibasilar densities persist and may represent atelectasis from the pleural effusions or a p neumonia.. ACT 112: Negative or not required by law. Electronically signed by: Burak Santacruz M.D. 07/13/2022 1:53 PM
[2022-07-13] MEDS: cefUROXime axetil 500 MG TAB PO SCH (20:19)
[2022-07-14] MEDS: LEVALBUTEROL 1.25MG/0.5ML NEB INH SCH ×5 (00:09→18:59)
[2022-07-14] MEDS: IPRATROPIUM BROMIDE NEB SOLN 0.02% 2.5 ML VIAL INH SCH ×5 (00:09→18:58)
[2022-07-14] MEDS: FORMOTEROL 20 MCG/2 ML VIAL INH SCH ×2 (07:18→18:58)
[2022-07-14] MEDS: BUDESONIDE 0.5 MG/2 ML VIAL (PULMICORT) NEB SCH ×2 (07:18→18:58)
[2022-07-14 07:41] LABS: Hemoglobin 9.6 g/dl (14.0-18.0); Mean Corpuscular Hemoglobin 30.1 pg (25.0-34.0); Platelet Count 205 K/uL (130-400); RDW Coefficient of Variation 15.7 % (11.5-14.5); RDW Standard Deviation 54.1 fL (36.4-46.3); Red Blood Count 3.19 M/uL (4.63-6.08); White Blood Count 12.82 K/ul (4.8-10.8)
[2022-07-14] MEDS: guaiFENesin 600 MG TABCR PO SCH ×2 (08:03→20:03)
[2022-07-14] MEDS: APIXABAN 5 MG TABLET PO SCH ×2 (08:03→20:01)
[2022-07-14] MEDS: DOCUSATE SODIUM 100 MG CAP PO SCH ×2 (08:03→20:12)
[2022-07-14] MEDS: cefUROXime axetil 500 MG TAB PO SCH ×2 (08:03→20:01)
[2022-07-14] MEDS: MAGNESIUM OXIDE 400 MG TAB PO SCH ×2 (08:03→20:03)
[2022-07-14] MEDS: CLOPIDOGREL BISULFATE 75 MG TAB PO SCH (08:03)
[2022-07-14] MEDS: ATORVASTATIN 40 MG TAB PO SCH (08:03)
[2022-07-14] MEDS: predniSONE 20 MG TAB PO SCH (08:04)
[2022-07-14] MEDS: AMIODARONE 200 MG TAB PO SCH (08:04)
[2022-07-14] MEDS: PANTOprazole 40 MG in SYRINGE 0 ML IV SCH ×2 (08:04→20:05)
[2022-07-14] MEDS: UMECLIDINIUM BROMIDE 62.5MCG/BLISTER 7 PUFFS/INHALER INH SCH (08:05)
[2022-07-14] MEDS: DOXYCYCLINE HYCLATE 100 MG CAP PO SCH ×2 (08:06→20:02)
[2022-07-14] MEDS: VALSARTAN/SACUBITRIL 26/24MG TAB PO SCH ×2 (08:15→20:04)
[2022-07-14] MEDS: INSULIN ASPART PER UNIT SC SCH ×4 (08:18→20:14)
[2022-07-14 09:28] LABS: BUN Creatinine Ratio 43.5 (10-20); Calcium 8.5 mg/dl (8.5-10.1); Creatinine Clr Calc Pharmacy 109.5 ml/min; Est GFR (African American) 134.5 ml/min; Magnesium 1.7 mg/dl (1.7-2.4); Potassium 4.1 mmol/L (3.5-5.1)
[2022-07-14] MEDS: ALBUTEROL HFA 8 GM INHALER INH SCH ×3 (14:30→18:58)
[2022-07-14] MEDS: IPRATROPIUM BROMIDE HFA INHALER INH SCH ×3 (14:30→19:06)
--- NOTE | 2022-07-14 15:35 | XRay Report ---
XR chest 1V portable HISTORY: Pulmonary congestion. Shortness of breath. COMPARISON: Chest 07/13/2022. FINDINGS: No pneumothorax. The heart remains mildly enlarged. Mall bilateral pleural effusions and bi basilar densities persist. Mild pulmonary edema has slightly progressed. There are surgical clips wit hin the right upper chest wall again noted. IMPRESSION: 1. Mild progression of the interstitial pulmonary edema and small bilateral pleural effusions. 2. Bibasilar densities persist. ACT 112: Negative or not required by law. Electronically signed by: Burak Santacruz M.D. 07/14/2022 3:34 PM
[2022-07-14] MEDS ORDERED: FUROSEMIDE INJ 20 MG/2 ML VIAL IV ONE ×2 (15:38→21:40)
[2022-07-14] MEDS ORDERED: FUROSEMIDE 40 MG/4 ML VIAL IV STA (15:42)
[2022-07-14] MEDS ORDERED: methylPREDNISolone 40 MG in SYRINGE 0 ML IV STA (16:04)
[2022-07-14] MEDS ORDERED: IPRATROPIUM BROMIDE/ALBUTEROL respimat INH INH SCH (17:00)
--- NOTE | 2022-07-14 17:47 | Hospitalist Progress Note ---
Date of Service July 14, 2022 Assessment & Plan (1) Respiratory failure with hypoxia and hypercapnia: Plan: (1) Respiratory failure with hypoxia and hypercapnia: (2) Pulmonary edema: (3) Pneumonia: (4) CAD (coronary artery disease): Plan: This is a 66-year-old male who presents with acute shortness of breath. 1. Acute respiratory failure, most likely secondary to [id number] systolic CHF, and multifocal pna Last echo was in last admission with 20-25% EF. Received a dose of Lasix IV 40 in the ER. Continued w/ IV Lasix as BP tolerates Held Entresto and spironolactone d/t hypotension. Daily weights, I's and O's. was placed on bipap Repeat Echo Compared with study dated May 31, 2022, LV systolic function has significantly improved. LV systolic function is mildly reduced EF 45 to 50%. There is moderate mitral regurg. Diastolic dysfunction grade II. Patient on nitro drip in the ER but BP dropped. Transferred to ICU for possible pressor support and need for diuresis. entresto resumed to start lasix at discharge two step requiring home oxygen: he needed 2L at rest and 4L with ambulation Planned to discharge tomorrow but in the evening patinet became acutely sob requiring bipap, iv lasix started back on iv steroids.close monitroing 2. PNA, Poss. mild chronic obstructive pulmonary disease exacerbation. The patient has also history of chronic obstructive pulmonary disease. Chest CT obtained - multifocal pna, pt has leukocytosis. Empirically treating for chronic obstructive pulmonary disease exacerbation with IV Solu-Medrol, nebs around the clock and p.r.n. Continue antibiotics for pna - cefepime + doxy -> switch to PO cefuroxime + doxy For COPD - on Incruse at home - added Brovana and Budesonide by pulmonary /critical care team also on nebs atc 3. Diabetes Hyperglycemic on admission, received IV insulin in ER. We will hold Jardiance. Placed on Lantus insulin sliding scale. Follow the blood sugars while the patient is on insulin. Glycemic - pharmacy consulted will monitor 4. Atrial fibrillation - was diagnosed in last admission to [place], on amiodarone and Eliquis - eliquis resumed, hemoglobin stable 5. History of multivessel CAD. As per discharge from [place], status post multivessel PCI, on Plavix and statin. Repeated echocardiogram, as above Cardiology following 6. Mild elevation of troponin, mostly demand ischemia. Cardiology following 7. Hypertension: On Entresto, on hold for now. We will monitor blood pressure. BP on low side.Restarted Entresto. 8. Gastroesophageal reflux disease: On Protonix. 9. Hx of tobacco abuse and history of alcohol abuse. DVT ppx: Eliquis DISPOSITION:PCU CODE: full code. PT/OT. Plan to DC home when medically stable. (2) Pulmonary edema: (3) Elevated troponin: (4) Pneumonia: (5) Lung mass: Admission and Anticipated Discharge Date Admission Date: July 08, 2022 Subjective Patient earlier in day was doing fine denied sob or chest pain cough improved afebrile no fevers Later acutely became sob and has to place on bipa doing fine on bipap currently Review of Systems Review of Systems: as above ROS unremarkable Physical Exam Eyes: PERRL, conjunctivae normal, anicteric sclerae Neck: trachea midline, no thyromegaly Respiratory: normal respiratory effort Auscultation: + rhonchi Cardiovascular: RRR, no murmur, no edema Gastrointestinal (Abdomen): normal bowel sounds, soft, nontender, no hepatosplenomegaly Skin: no rashes, warm and dry Neurologic: PERRL, EOMI, accommodation nl, no face palsy, no dysarthria Results & Data Results & Data ([facility]) Vital Signs (Past 12 Hours) Vital Signs Temp Pulse Pulse Pulse Pulse Pulse Pulse 07/14/22 16:01 115 H 07/14/22 15:47 111 H 07/14/22 15:46 111 H 07/14/22 15:40 108 H 07/14/22 15:35 108 H 07/14/22 15:34 36.6 C 105 H 07/14/22 11:09 36.3 C L 87 07/14/22 10:04 89 07/14/22 08:57 95 H 112 H 105 H 110 H 07/14/22 08:00 07/14/22 07:39 36.3 C L 91 H 07/14/22 07:19 90 Pulse Pulse Resp Resp Resp Resp Resp 07/14/22 16:01 22 07/14/22 15:47 28 H 07/14/22 15:46 30 H 07/14/22 15:40 28 H 07/14/22 15:35 20 07/14/22 15:34 22 07/14/22 11:09 16 07/14/22 10:04 07/14/22 08:57 90 95 H 20 24 22 24 07/14/22 08:00 07/14/22 07:39 18 07/14/22 07:19 18 Resp Resp BP Pulse Ox Pulse Ox Pulse Ox Pulse Ox 07/14/22 16:01 99 07/14/22 15:47 98 07/14/22 15:46 97 07/14/22 15:40 96 07/14/22 15:35 95 07/14/22 15:34 159/99 H 82 L 07/14/22 11:09 102/64 99 07/14/22 10:04 07/14/22 08:57 18 18 91 88 L 90 07/14/22 08:00 07/14/22 07:39 102/62 95 07/14/22 07:19 95 Pulse Ox Pulse Ox Pulse Ox O2 Del Method O2 Flow Rate O2 Flow Rate O2 Flow Rate 07/14/22 16:01 CPAP 07/14/22 15:47 07/14/22 15:46 BiPAP 07/14/22 15:40 Oxymask 6 07/14/22 15:35 Oxymask 6 07/14/22 15:34 Nasal Cannula 4 07/14/22 11:09 Nasal Cannula 2 07/14/22 10:04 07/14/22 08:57 86 L 93 86 L 2 3 07/14/22 08:00 Nasal Cannula 2 07/14/22 07:39 Nasal Cannula 2 07/14/22 07:19 Nasal Cannula 2 O2 Flow Rate O2 Flow Rate O2 Flow Rate FiO2 07/14/22 16:01 07/14/22 15:47 40 07/14/22 15:46 40 07/14/22 15:40 07/14/22 15:35 07/14/22 15:34 07/14/22 11:09 07/14/22 10:04 07/14/22 08:57 4 2 2 07/14/22 08:00 07/14/22 07:39 07/14/22 07:19 (1) Respiratory failure with hypoxia and hypercapnia Chronicity: acute Qualified Code(s): J96.01 - Acute respiratory failure with hypoxia; J96.02 - Acute respiratory failure with hypercapnia; J96.02 - Acute re spiratory failure with hypercapnia (2) Pulmonary edema Chronicity: acute Qualified Code(s): J81.0 - Acute pulmonary edema
[2022-07-14] MEDS ORDERED: XOPENEX/ATROVENT 1.25mg/0.5MG NEB COMBO NEB SCH (19:00)
[2022-07-14] MEDS ORDERED: ALBUMIN 25% 12.5 GM/50 ML VIAL IV ONE (21:40)
[2022-07-14] MEDS ORDERED: XOPENEX/ATROVENT 1.25mg/0.5MG NEB COMBO NEB STA (21:40)
[2022-07-14] MEDS ORDERED: IPRATROPIUM BROMIDE NEB SOLN 0.02% 2.5 ML VIAL INH STA (21:49)
[2022-07-14] MEDS ORDERED: LEVALBUTEROL 1.25MG/0.5ML NEB INH STA (21:49)
[2022-07-14] MEDS: methylPREDNISolone 40 MG in SYRINGE 0 ML IV SCH (22:20)
[2022-07-15] MEDS: IPRATROPIUM BROMIDE NEB SOLN 0.02% 2.5 ML VIAL INH SCH ×3 (00:43→14:01)
[2022-07-15] MEDS: LEVALBUTEROL 1.25MG/0.5ML NEB INH SCH ×3 (00:43→14:01)
[2022-07-15 06:39] LABS: Basophils # (auto) 0.01 K/uL (0-0.2); Basophils % (auto) 0.1 %; Hematocrit (blood only) 29.6 % (40.1-51.0); Hemoglobin 9.5 g/dl (14.0-18.0); Immature Granulocytes # (auto) 0.04 K/uL (0.00-0.02); Immature Granulocytes % (auto) 0.5 %; Lymphocytes # (auto) 0.82 K/uL (1.2-3.4); Lymphocytes % (auto) 9.3 %; Mean Corpuscular Hemoglobin 30.1 pg (25.0-34.0); Mean Corpuscular Hgb Conc 32.1 g/dL (32.0-36.0); Mean Corpuscular Volume 93.7 fL (80.0-100.0); Mean Platelet Volume 10.2 fL (9.4-12.4); Monocytes # (auto) 0.38 K/uL (0.24-0.82); Monocytes % (auto) 4.3 %; Neutrophils # (auto) 7.54 K/uL (1.4-6.5); Neutrophils % (auto) 85.8 %; Platelet Count 197 K/uL (130-400); RDW Coefficient of Variation 15.7 % (11.5-14.5); RDW Standard Deviation 53.7 fL (36.4-46.3); Red Blood Count 3.16 M/uL (4.63-6.08); White Blood Count 8.79 K/ul (4.8-10.8)
[2022-07-15 06:58] LABS: BUN Creatinine Ratio 35.4 (10-20); Calcium 8.6 mg/dl (8.5-10.1); Creatinine Clr Calc Pharmacy 101.6 ml/min; Est GFR (African American) 132.2 ml/min; Magnesium 1.8 mg/dl (1.7-2.4); Potassium 4.3 mmol/L (3.5-5.1)
[2022-07-15] MEDS: BUDESONIDE 0.5 MG/2 ML VIAL (PULMICORT) NEB SCH (06:58)
[2022-07-15] MEDS: FORMOTEROL 20 MCG/2 ML VIAL INH SCH (06:58)
[2022-07-15] MEDS: methylPREDNISolone 40 MG in SYRINGE 0 ML IV SCH ×2 (08:11→14:00)
[2022-07-15] MEDS: PANTOprazole 40 MG in SYRINGE 0 ML IV SCH (08:11)
[2022-07-15] MEDS: APIXABAN 5 MG TABLET PO SCH (08:12)
[2022-07-15] MEDS: guaiFENesin 600 MG TABCR PO SCH (08:12)
[2022-07-15] MEDS: MAGNESIUM OXIDE 400 MG TAB PO SCH (08:12)
[2022-07-15] MEDS: ATORVASTATIN 40 MG TAB PO SCH (08:12)
[2022-07-15] MEDS: CLOPIDOGREL BISULFATE 75 MG TAB PO SCH (08:12)
[2022-07-15] MEDS: AMIODARONE 200 MG TAB PO SCH (08:12)
[2022-07-15] MEDS: cefUROXime axetil 500 MG TAB PO SCH ×2 (08:12→14:51)
[2022-07-15] MEDS: VALSARTAN/SACUBITRIL 26/24MG TAB PO SCH (08:13)
[2022-07-15] MEDS: UMECLIDINIUM BROMIDE 62.5MCG/BLISTER 7 PUFFS/INHALER INH SCH (08:13)
[2022-07-15] MEDS: DOCUSATE SODIUM 100 MG CAP PO SCH (08:13)
[2022-07-15] MEDS: INSULIN ASPART PER UNIT SC SCH ×2 (08:14→11:40)
--- NOTE | 2022-07-15 12:05 | Hospitalist Progress Note ---
Date of Service July 15, 2022 Assessment & Plan (1) Respiratory failure with hypoxia and hypercapnia: Plan: (1) Respiratory failure with hypoxia and hypercapnia: (2) Pulmonary edema: (3) Pneumonia: (4) CAD (coronary artery disease): Plan: This is a 66-year-old male who presents with acute shortness of breath. 1. Acute respiratory failure, most likely secondary to qcjqo-[id number] systolic CHF, and multifocal pna Last echo was in last admission with 20-25% EF. Received a dose of Lasix IV 40 in the ER. Continued w/ IV Lasix as BP tolerates Intially Held Entresto and spironolactone d/t hypotension. Daily weights, I's and O's. was placed on bipap Repeat Echo Compared with study dated May 31, 2022, LV systolic function has significantly improved. LV systolic function is mildly reduced EF 45 to 50%. There is moderate mitral regurg. Diastolic dysfunction grade II. Patient on nitro drip in the ER but BP dropped. Transferred to ICU for possible pressor support and need for diuresis. entresto resumed to start lasix at discharge two step requiring home oxygen: he needed 2L at rest and 4L with ambulation Planned to discharge but in the evening of 07/14/22 patient became acutely sob requiring bipap, iv lasix started back on iv steroids.close monitroing back to nasal canula 2lts says he is feeling much better and wants to go home will d/c on home lasix but will stop aldactone for now needs close followup 2. PNA, Poss. mild chronic obstructive pulmonary disease exacerbation. The patient has also history of chronic obstructive pulmonary disease. Chest CT obtained - multifocal pna, pt has leukocytosis. Empirically treating for chronic obstructive pulmonary disease exacerbation with IV Solu-Medrol, nebs around the clock and p.r.n. Continue antibiotics for pna - cefepime + doxy -> switch to PO cefuroxime + doxy For COPD - on Incruse at home - added Brovana and Budesonide by pulmonary/critical care team will d/c on nebs prn steroid taper and po abx and home inhalers close followup 3. Diabetes Hyperglycemic on admission, received IV insulin in ER. We will hold Jardiance. Placed on Lantus insulin sliding scale. Follow the blood sugars while the patient is on insulin. Glycemic - pharmacy consulted will monitor d/c on home emdds 4. Atrial fibrillation - was diagnosed in last admission to [place], on amiodarone and Eliquis - eliquis resumed, hemoglobin stable 5. History of multivessel CAD. As per discharge from [place], status post multivessel PCI, on Plavix and statin. Repeated echocardiogram, as above Cardiology following 6. Mild elevation of troponin, mostly demand ischemia. Cardiology following 7. Hypertension: On Entresto, on hold for now. We will monitor blood pressure. BP on low side.Restarted Entresto. 8. Gastroesophageal reflux disease: On Protonix. 9. Hx of tobacco abuse and history of alcohol abuse. DVT ppx: Eliquis D/C home with close followup. (2) Pulmonary edema: (3) Elevated troponin: (4) Pneumonia: (5) Lung mass: Admission and Anticipated Discharge Date Admission Date: July 08, 2022 Subjective Resting comfortably ays he is feeling better slept better denies sob ambulating with walker no cough afebrile likes to go home today advised to stay one more day but says he is doing fine and wants to go home Review of Systems Review of Systems: ROS unremarkable Physical Exam Neck: trachea midline, no thyromegaly Respiratory: normal respiratory effort, lungs clear to auscultation Cardiovascular: RRR, no murmur, no edema Gastrointestinal (Abdomen): normal bowel sounds, soft, nontender, no hepatosplenomegaly Skin: no rashes, warm and dry Neurologic: Alert and oriented no facial droop speech clear obeys commands moves extremities Results & Data Results & Data ([facility]) Vital Signs (Past 12 Hours) Vital Signs Temp Pulse Pulse Resp BP Pulse Ox O2 Del Method 07/15/22 10:49 36.9 C 80 18 95/42 L 93 Nasal Cannula 07/15/22 08:30 Nasal Cannula 07/15/22 07:00 79 18 99 Nasal Cannula 07/15/22 03:21 36.7 C 75 18 98/45 L 95 Nasal Cannula 07/15/22 02:20 Nasal Cannula O2 Flow Rate 07/15/22 10:49 2 07/15/22 08:30 2 07/15/22 07:00 2 07/15/22 03:21 2 07/15/22 02:20 4 (1) Respiratory failure with hypoxia and hypercapnia Chronicity: acute Qualified Code(s): J96.01 - Acute respiratory failure with hypoxia; J96.02 - Acute respiratory failure with hypercapnia; J96.02 - Acute respiratory failure with hypercapnia (2) Pulmonary edema Chronicity: acute Qualified Code(s): J81.0 - Acute pulmonary edema
--- NOTE | 2022-07-15 12:53 | Discharge Summary ---
Date of Service July 15, 2022 Admission HPI Per Admitting Provider This is a 66-year-old male with past medical history significant for alcohol abuse, history of tobacco abuse, history of non-ST elevated UT, history of CHF, hypertension, shock liver, chest wall hematoma presents with complaints of shortness of breath. Currently, for CHF he is placed on nitro drip and also received a dose of Lasix and is on BiPAP. He seems comfortable, saturating fine. The patient was admitted to our hospital on 05/31/2022 with acute respiratory failure, non-ST elevated UT, cardiogenic shock, CHF, EF around 25% and COPD exacerbation. He was hypoxic at that time at 70% and improved on BiPAP. At that time, his white count was 19,000 and lactate was 9.9. Troponin was 15,000. EKG showed ST depression in lateral leads and showed 20-25% EF. Heart alert was called. Urgent cardiac catheterization was done, which revealed severe multivessel coronary artery disease with severely calcified and occluded left circumflex at [facility] and was transferred to [place]. It looks like he stayed in [place] for whole June and in [place] he was placed on intraaortic balloon pump. IABP was later upgraded to Impella( IABP seemed to have broken), underwent multivessel PCI, complicated by hemorrhagic shock and cardiogenic shock, intubated for pulmonary edema, looks like intubated for many days. Diagnosed and treated empirically for pneumonia. Ultimately extubated and Impella removed. He was found to have new onset AFib during the course and currently on amiodarone and Eliquis, and he was discharged to [facility] on 07/02/2022 and now he comes back with shortness of breath. The patient is ambulating sometimes with cane and sometime without cane. He is eating okay. Denies any chest pain or cough. Denies any fevers. Denies any nausea, denies any abdominal pain. His bowel and bladder are moving okay. Admission Exam Per Admitting Provider GENERAL: The patient is somewhat thin and frail, currently not in acute distress, on BiPAP. VITAL SIGNS: Temperature 36.7, pulse 92, respiratory rate 20, blood pressure 104/55, oxygen 100%, 40% BiPAP. HEENT: Pupils equal, round and reactive to light. No facial droop. NECK: No neck masses seen. CARDIOVASCULAR: S1 and S2 heard. Regular rate and rhythm. No murmur, no gallop. RESPIRATORY SYSTEM: Normal AP diameter. No accessory muscle use. Mild bibasilar wheezing and crackles heard. ABDOMEN: Soft, bowel sounds present, nontender, no distention. CENTRAL NERVOUS SYSTEM: Alert and awake, somewhat hard of hearing. No facial droop. Speech is okay. Insight is okay. Obeys simple commands. Moves extremities. EXTREMITIES: No obvious edema or erythema seen. Principal Diagnosis acute chf copd ex pneumonia Discharge Data Allergies Allergy/AdvReac Type Severity Reaction Status Date / Time piperacillin [From Zosyn] Allergy Unknown ON Verified 07/08/22 02:26 [facility] tazobactam [From Zosyn] Allergy Unknown ON Verified 07/08/22 02:26 [facility] Consultations 07/08/22 03:55 ED Decision to Admit Stat 07/08/22 08:00 Consult Cardiology Routine 07/08/22 11:37 Consult Pig Furnace Operator Routine 07/10/22 16:50 Consult Palliative Care Routine Ordered Studies 07/08/22 04:57 CT chest diagnostic wo con Urgent Hospital Course (1) Respiratory failure with hypoxia and hypercapnia: (1) Respiratory failure with hypoxia and hypercapnia: (2) Pulmonary edema: (3) Pneumonia: (4) CAD (coronary artery disease): Plan: This is a 66-year-old male who presents with acute shortness of breath. 1. Acute respiratory failure, most likely secondary to [id number] systolic CHF, and multifocal pna Last echo was in last admission with 20-25% EF. Received a dose of Lasix IV 40 in the ER. Continued w/ IV Lasix as BP tolerates Intially Held Entresto and spironolactone d/t hypotension. Daily weights, I's and O's. was placed on bipap Repeat Echo Compared with study dated May 31, 2022, LV systolic function has significa ntly improved. LV systolic function is mildly reduced EF 45 to 50%. There is moderate mitral regurg. Diastolic dysfunction grade II. Patient on nitro drip in the ER but BP dropped. Transferred to ICU for possible pressor support and need for diuresis. entresto resumed to start lasix at discharge two step requiring home oxygen: he needed 2L at rest and 4L with ambulation Planned to discharge but in the evening of 07/14/22 patient became acutely sob requiring bipap, iv lasix started back on iv steroids.close monitroing back to nasal canula 2lts says he is feeling much better and wants to go home will d/c on home lasix but will stop aldactone for now needs close followup 2. PNA, Poss. mild chronic obstructive pulmonary disease exacerbation. The patient has also history of chronic obstructive pulmonary disease. Chest CT obtained - multifocal pna, pt has leukocytosis. Empirically treating for chronic obstructive pulmonary disease exacerbation with IV Solu-Medrol, nebs around the clock and p.r.n. Continue antibiotics for pna - cefepime + doxy -> switch to PO cefuroxime + doxy For COPD - on Incruse at home - added Brovana and Budesonide by pulmonary/critical care team will d/c on nebs prn steroid taper and po abx and home inhalers close followup 3. Diabetes Hyperglycemic on admission, received IV insulin in ER. We will hold Jardiance. Placed on Lantus insulin sliding scale. Follow the blood sugars while the patient is on insulin. Glycemic - pharmacy consulted will monitor d/c on home emdds 4. Atrial fibrillation - was diagnosed in last admission to [place], on amiodarone and Eliquis - eliquis resumed, hemoglobin stable 5. History of multivessel CAD. As per discharge from [place], status post multivessel PCI, on Plavix and statin. Repeated echocardiogram, as above Cardiology following 6. Mild elevation of troponin, mostly demand ischemia. Cardiology following 7. Hypertension: On Entresto, on hold for now. We will monitor blood pressure. BP on low side.Restarted Entresto. 8. Gastroesophageal reflux disease: On Protonix. 9. Hx of tobacco abuse and history of alcohol abuse. DVT ppx: Eliquis D/C home with close followup. Followup with PCP in 5-7 days Followup with Cardiology bin 1-2 weeks .Followup with Pulmonary in 3-4 weeks (2) Pulmonary edema: (3) Elevated troponin: (4) Pneumonia: (5) Lung mass: Total Time Total Time Spent Total Time Spent (In Minutes): 50minutes Discharge Plan Discharge Items Patient Disposition: Home - Home Health Services Reason For Visit: SOB Discharge Diagnosis: Acute chf copd ex pneumonia Activity: As commented below Activity Comment: As tolerated Non-emergency contact: Primary Care Provider Call non-emergency contact if: you have any medication questions and your symptoms worsen Follow-up/Referrals: Yuri Rey PA-C [Outside Practitioners] - (Date & Time 07/21/2022 9:20 AM Provider Yuri Rey PA-C Department General Internal Medicine [facility] ) Diet: Heart Healthy Addtl Attending Provider Instructions: Followup with PCP with in one week CArdiology 1-2 weeks Lab: BMP in one week and follow results with pcp Pending Studies at Discharge: No Stand-Alone Forms: My [facility] [employer], Smoking Cessation Medications and DC Order Prescriptions: New magnesium oxide 400 mg (241.3 mg magnesium) Tablet 400 mg PO DAILY Qty: 30 0RF cefuroxime axetil 500 mg tablet 500 mg PO BID 5 Days Qty: 10 0RF albuterol sulfate 0.63 mg/3 mL solution for nebulization 0.63 mg inhalation Q6H PRN (Reason: bronchospasm) Qty: 90 0RF formoterol fumarate [Perforomist] 20 mcg/2 mL Solution For Nebulization 20 mcg inhalation BIDR Qty: 120 0RF budesonide 0.5 mg/2 mL Suspension For Nebulization 0.5 mg NEB BIDR Qty: 60 0RF prednisone 10 mg tablet 10 mg PO DIRECTED Qty: 10 0RF Rx Instructions: see taper instructions 4 tab for one day then 3 tab for one day then 2 tab for one day then 1 tab for one day then stop doxycycline hyclate 100 mg capsule 100 mg PO BID 5 Days Qty: 10 0RF Combivent Respimat 20-100 mcg/actuation mist 1 puff inhalation QID Qty: 4 0RF Rx Instructions: space evenly during waking hours Continued atorvastatin 80 mg Tablet 80 mg PO DAILY amiodarone 200 mg Tablet 200 mg PO DAILY clopidogrel [Plavix] 75 mg Tablet 75 mg PO DAILY bisacodyl 10 mg Suppository 10 mg NE DAILY PRN (Reason: Constipation) pantoprazole 40 mg Tablet,Delayed Release (Dr/Ec) 40 mg PO DAILYBB docusate sodium 100 mg Capsule 100 mg PO BID furosemide [Lasix] 20 mg Tablet 20 mg PO QAM polyethylene glycol 3350 [Miralax] 17 gram/dose Powder 17 g PO QDL PRN (Reason: Constipation) albuterol sulfate 90 mcg/actuation Hfa Aerosol Inhaler 2 puff INHALATION Q4H PRN (Reason: Shortness Of Breath Or Wheezing) Eliquis 5 mg Tablet 5 mg PO BID umeclidinium 62.5 mcg/actuation Blister With Device 1 inh INHALATION DAILY Jardiance 10 mg Tablet 10 mg PO QAM sacubitril-valsartan 24-26 mg Tablet 1 tab PO BID Discontinued acetaminophen [Tylenol] 325 mg Tablet 325 mg PO Q4H PRN (Reason: Pain) ondansetron HCl [Zofran] 4 mg Tablet 4 mg PO Q4H PRN (Reason: NAUSEA/VOMITING) sennosides-docusate sodium [Senokot-S] 8.6-50 mg Tablet 1 tab-cap PO QDL PRN (Reason: Constipation) spironolactone 25 mg Tablet 25 mg PO DAILY magnesium hydroxide [Milk of Magnesia] 400 mg/5 mL Suspension 15 ml PO DAILY PRN (Reason: Constipation) Fleet Enema 19-7 gram/118 mL Enema 118 ml NE DAILY PRN (Reason: Constipation) albuterol sulfate 90 mcg/actuation Hfa Aerosol Inhaler 2 puff INHALATION QID Discharge Orders: Discharge Order (Routine); Ordered 07/15/22 Ordered By: Migue Caicedo Admission Data Admit Date/Time: 07/08/22 04:55 Attending Provider: Migue Caicedo Admit Provider: Migue Caicedo Primary Care Provider: Elan Andrew Other Providers: Migue Caicedo ; Rehan Cloud ; Boaz Rajput ; Sanjay Poole ; Johnson Fontaine ; Vivek Awan ; Xavi Brand ; Yudy Gonzalez ; Shameka Chapa ; Steffi Bhatt ; Piyush Ragsdale ; Trenton Sal ; Helen Moreira
--- NOTE | 2022-07-15 13:58 | Pharmacy Report ---
Pharmacy Glycemic Short Note 2 - Date of Service July 15, 2022 - Glycemic Short BSG Results (Last 24 hours): 07/14/22 07/14/22 07/14/22 15:57 16:47 20:12 Glucose POC Glucose 285 H 222 H 61 L* 07/14/22 07/15/22 07/15/22 20:13 05:52 07:14 Glucose 98 POC Glucose 69 L* 210 H 07/15/22 11:22 Glucose POC Glucose 107 H OUTPATIENT ANTIDIABETIC REGIMEN: * Empagliflozin 10mg PO qAM * HbA1c: 5.3% (07/08/22) ASSESSMENT: 07/15/22: * BSG elevated at dinner yesterday and then low at HS, will loosen correction factor * Fasting on lab 98 mg/dL however, POC 210 mg/dL. Unable to confirm if patient ate between these measurements. Patient was also switched to methylprednisolone 40 mg TID. It appears patient did not have issues on methylprednisolone prior. Will continue current novolog parameters, lunch BSG 107 mg/dL. * Continue to hold basal, consider adding if Fasting elevated tomorrow. 07/12/22: * Mr Clement has been receiving ~10 units of insulin per day for the past couple of days. This has mostly been for carb coverage (which is appropriate, as patient has been on prednisone and steroids exhibit their greatest effect on post-prandial BSGs). * Prednisone dose is tapering further today. Expect that they will be discontinued soon. * Anticipate that patient's insulin requirements will decrease as steroids taper/stop. Will likely need to remove carb coverage once prednisone is discontinued. * No changes required at this time. 07/08 * Mr Clement is a 66yo male admitted with shortness of breath. * PMH is significant for alcohol/tobacco abuse, hx NSTEMI, CHF, HTN, CHF * Pt was significantly hyperglycemic (on both lab draw and POC --> BSGs 335 and 327 mg/dL respectively) on presentation to ED. * Pt was given a small dose of IV insulin (5 units) and next BSG check was 31 mg/dL on lab draw. * Pt received 125mg IV SoluMedrol in ED, with 40mg IV q8h ordered on admission. This is expected to lead to steroid-induced hyperglycemia, but BSGs do not reflect this so far. * Novolog ordered for correction, should patient become hyperglycemic. * No basal insulin or carb coverage ordered at this time in light of patient's recent hypoglycemic episode and degree of insulin sensitivity observed after small IV insulin dose received. PLAN FOR INPATIENT GLYCEMIC CONTROL: * Hold outpatient oral diabetes medications * Basal insulin * none at this time * Bolus insulin * NovoLog per scale ACHS or Q6hrs while NPO * Goal Range: Low 110 mg/dL - High 140 mg/dL * Correction Factor: 50 mg/dL/unit * Nutritional / Prandial insulin: 1 unit per 10 gm CHO consumed
== END 2022-07-15 15:55 | disposition home health service (06) | DRG 193 ==
LOC: ED 02:06 → EDINP 04:55 → SUATTDRO 04:55 → 1E 06:17 → 2S 07-10 17:42

== ENCOUNTER 2022-07-24 11:39 | Inpatient (IN) ==
[2022-07-24] MEDS ORDERED: ALBUT/IPRATROP 3MG/0.5MG NEB 3 ML VIAL ONE (11:48)
[2022-07-24] MEDS ORDERED: methylPREDNISolone 125 MG/2 ML VIAL IV STA (11:49)
[2022-07-24] MEDS ORDERED: ALBUT/IPRATROP 3MG/0.5MG NEB 3 ML VIAL NEB ONE (11:49)
[2022-07-24 12:11] LABS: Basophils # (auto) 0.03 K/uL (0-0.2); Basophils % (auto) 0.2 %; Eosinophils # (auto) 0.03 K/uL (0-0.50); Eosinophils % (auto) 0.2 %; Hemoglobin 10.5 g/dl (14.0-18.0); Immature Granulocytes # (auto) 0.08 K/uL (0.00-0.02); Immature Granulocytes % (auto) 0.6 %; Lymphocytes # (auto) 1.07 K/uL (1.2-3.4); Lymphocytes % (auto) 7.8 %; Mean Corpuscular Hgb Conc 30.9 g/dL (32.0-36.0); Mean Corpuscular Volume 97.1 fL (80.0-100.0); Mean Platelet Volume 9.8 fL (9.4-12.4); Monocytes # (auto) 0.82 K/uL (0.24-0.82); Neutrophils # (auto) 11.72 K/uL (1.4-6.5); Neutrophils % (auto) 85.2 %; Platelet Count 286 K/uL (130-400); RDW Coefficient of Variation 15.9 % (11.5-14.5); White Blood Count 13.75 K/ul (4.8-10.8)
[2022-07-24 12:13] LABS: Base Excess VBG 4.4 mEq/L; HCO3 VBG 35 mmol/L; Oxygen Saturation VBG < 60.0 %; PCO2 VBG 83 mmHg (38-50); PO2 VBG 40 mmHg; pH VBG 7.23 (7.36-7.41)
[2022-07-24 12:16] LABS: iSTAT Creatinine 0.5 mg/dl (0.6-1.3); iSTAT Hemoglobin 11.6 g/dl (14.0-18.0); iSTAT Ionized Calcium 1.1 mmol/l (1.12-1.32); iSTAT Potassium 4.2 mmol/L (3.3-5.0)
[2022-07-24 12:21] LABS: INR 1.1 (0.9-1.1); Prothrombin Time 11.9 Seconds (9.0-12.0)
[2022-07-24] MEDS ORDERED: VANCOMYCIN HCL 1,500 MG in SODIUM CHLORIDE 0.9% 500 ML IV ONE (12:26)
[2022-07-24] MEDS ORDERED: CEFEPIME 2,000 MG/20 ML VIAL IV STA (12:26)
[2022-07-24] MEDS ORDERED: metroNIDAZOLE 500 MG/100 ML BAG IV STA (12:26)
[2022-07-24] MEDS ORDERED: VANCOMYCIN CONSULT ACTIVE PRN ×2 (12:26→16:33)
--- NOTE | 2022-07-24 12:27 | XRay Report ---
XR chest 1V portable HISTORY: 66 years-old Male Sepsis acute sepsis COMPARISON: July 14, 2022 TECHNIQUE: AP view the chest FINDINGS: Cardiac silhouette is enlarged. Mixed interstitial and alveolar opacities appear generally stable. Sm all pleural effusions with persistent bibasilar consolidation. No pneumothorax. Degenerative changes of the shoulders and spine. Surgical clips of the right upper chest. IMPRESSION: 1. Megaly with pulmonary edema. 2. Small pleural effusions with mild bibasilar opacities appears similar to the 07/14/2022 exam. ACT 112: Negative or not required by law. The above report was generated using voice recognition software. It may contain grammatical, syntax o r spelling errors. Electronically signed by: Torres Marshall M.D. 07/24/2022 12:24 PM
[2022-07-24 12:32] LABS: Albumin Level 3.7 gm/dl (3.4-5.0); BUN Creatinine Ratio 26.2 (10-20); Bilirubin Direct 0.4 mg/dl (0-0.2); Bilirubin,Total 1.4 mg/dl (0.2-1.0); Calcium 8.4 mg/dl (8.5-10.1); Creatinine Clr Calc Pharmacy 83.1 ml/min; Est GFR (African American) 119.8 ml/min; Est GFR (Non-African American) 103.3 ml/min; Magnesium 1.6 mg/dl (1.7-2.4); Potassium 3.9 mmol/L (3.5-5.1); Total Protein 6.1 gm/dl (6.0-8.3)
--- NOTE | 2022-07-24 12:37 | Emergency Department Note ---
Impression & Plan Acute respiratory failure with hypoxia and hypercapnia, Elevated troponin, Pneumonia, COPD (chronic obstructive pulmonary disease), Hypomagnesemia, CHF (congestive heart failure) ED Provider Note NAME: JORGE CHAKRABORTY AGE: 66 SEX: M ARRIVES VIA: Ambulance INFORMANT: Patient ED PROVIDER(S): Vadim Wade MD CHIEF COMPLAINT: Respiratory failure. PLAN: Disposition: Admit MEDICAL DECISION MAKING: The patient is a pleasant 66-year-old gentleman with a complicated recent past medical history of NSTEMI, CHF, cardiogenic shock in June 2022 to [place] with Impella after failed balloon pump with recent admission to this facility for acute respiratory failure secondary to acute on chronic CHF and multifocal pneumonia from 07/08-07/2012 who presents to the emergency department via EMS in acute respiratory failure where his daughter reports that she spoke to him this morning and he felt "things were not quite right and asked her to come see him". She reports finding him to be significant short of breath and EMS was called. He was found to be hypoxic in the 70s on his home 4 L nasal cannula. He was placed on 100% nonrebreather and given Ativan for agitation. On arrival emergency department he was placed on BiPAP due to to his significant work of breathing and this did progressively show some improvement in his work of breathing with RR improving from 50s to upper 20s. He is afebrile with HR 90s. EKG without overt acute ischemia. Chest x-ray appears similar to 07/14 though in the setting of having multifocal pneumonia and pulmonary edema and so given his interval improvement this may not necessarily reflect stable findings. WBC 13.7K, nonspecific. H/H similar to prior. Within normal limits. Chemistry without metabolic acidosis. Though with VBG demonstrating respiratory acidosis with PCO2 of 83 and pH of 7.23. Magnesium 1.6. Lactic acid 1.9 within normal limits. Total bili 1.4 similar to prior with direct bilirubin 0.4 but normal alk phos and AST and ALT. HS Troponin 40.2, nonspecific. BNP 2600 increased from prior. Patient was treated with Solu-Medrol and continues inline DuoNeb while on BiPAP. He further was treated empirically with ordered broad-spectrum antibiotics including cefepime, vancomycin and Flagyl. Lasix administer for hypervolemia. Case was discussed with Eva Haas, [facility], with Dr. Peña Cardoza hospitallety who will evaluate the patient for admission. Triage Nursing notes reviewed and agree them. Prior medical records reviewed Vital Signs: reviewed Differential diagnosis: Reactive airway disease, pneumonia, pneumothorax, COPD, CHF, infections, cardiac ischemia, pulmonary embolism, musculoskeletal, gastrointestinal, as well as other pathologies. ER treatment provided: Reactive airway disease, pneumonia, pneumothorax, COPD, CHF, infections, cardiac ischemia, pulmonary embolism, musculoskeletal, gastrointestinal, as well as other pathologies. Diagnostics interpreted by me: ECG: Normal sinus rhythm, 98 bpm, no ectopy, nonspecific ST and T wave abnormality, no overt ST elevation or depression, QTC 407, QRS 94 Cardiac Monitoring: An order for continuous cardiac monitoring was placed and d emonstrated Normal sinus rhythm, 98 bpm, no ectopy Laboratory studies: See below Imaging studies: See below Consultation(s): Case was discussed with Eva Haas, [facility], with Dr. Peña reece who will evaluate the patient for admission. HPI: The patient is a pleasant 66-year-old gentleman with a complicated recent past medical history of NSTEMI, CHF, cardiogenic shock in June 2022 to [place] with Impella after failed balloon pump with recent admission to this facility for acute respiratory failure secondary to acute on chronic CHF and multifocal pneumonia from 07/08-07/2012 who presents to the emergency department via EMS in acute respiratory failure where his daughter reports that she spoke to him this morning and he felt "things were not quite right and asked her to come see him". She reports finding him to be significant short of breath and EMS was called. He was found to be hypoxic in the 70s on his home 4 L nasal cannula. He was placed on 100% nonrebreather and given Ativan for agitation. ROS: See above HPI for pertinent positives & negatives. A total of 10 systems reviewed and were otherwise negative. VITALS:See Below PHYSICAL EXAMINATION: GENERAL: Awake, alert, ill-appearing, in no distress HENT: Normocephalic, atraumatic. Oropharynx unremarkable. EYES: Normal conjunctiva. Sclera non-icteric. NECK: Supple. No nuchal rigidity. FROM. No JVD. RESPIRATORY: Diminished breath sounds of bilateral lung hurtado with underlying wheeze, rales and rhonchi. Moderate increased work of breathing. CARDIAC: Regular rate, normal rhythm. Extremities warm and well perfused. Pulses equal. ABDOMEN: Soft, non-distended. No tenderness to palpation. No rebound or gua rding. No masses. RECTAL: Deferred. MUSCULOSKELETAL: Chest examination reveals no tenderness. The back is symmetrical on inspection without obvious abnormality. There is no CVA tenderness to palpation. No joint edema. LOWER EXTREMITIES: Calves are equal size bilaterally and non-tender. 2+ BLE edema. No discoloration. NEURO: Normal sensorium. No sensory or motor deficits noted. SKIN: No rash or jaundice noted. ED COURSE: Critical Care: I have personally spent greater than 75 minutes of critical care time in the direct management of this patient. This includes bedside care, interpretation of diagnostic studies, and testing, discussion with consultants, patient, and family members, and other required patient management activities. This 75 minutes is in excess of all separately billable procedures. Vadim Wade MD Past Med/Surg History Medical History (Updated 07/24/22 @ 20:29 by Vadim Wade MD) Advanced care planning/counseling discussion Alcohol use disorder CAD (coronary artery disease) Multivessel disease COPD (chronic obstructive pulmonary disease) Diabetes mellitus, type II Heart failure with reduced ejection fraction HTN (hypertension) Ischemic cardiomyopathy Lung nodule NSTEMI (non-ST elevation myocardial infarction) Palliative care encounter Paroxysmal atrial fibrillation Surgical History Hx of colonoscopy Family History Other Cancer Hypertension Social History Smoking Status: Former smoker Tobacco Type: Cigarettes Hx Alcohol Use: Yes Alcohol type: beer Alcohol type Comment: 5 beers nightly, last drink 05/30/22 Hx Substance Use: No Preferred Language: Burmese Communication Ability: Effective Buffing Wheel Presser Required: No Beliefs That Will Affect Care: None Current Living Situation: Family Other Information That Helps Us Care for You: No Feels Safe at Home: Yes Safety Concerns: Feels Safe At This Time Assistive Devices: Cane, Denture - Upper, Denture - Lower, Oxygen - Continuous and Walker Allergies Allergies Allergy/AdvReac Type Severity Reaction Status Date / Time piperacillin [From Zosyn] Allergy Unknown ON Verified 07/08/22 02:26 [facility] tazobactam [From Zosyn] Allergy Unknown ON Verified 07/08/22 02:26 [facility] Home Meds Home Medications Medication Instructions Recorded Confirmed iron,carbonyl 65 mg-vitamin C 125 1 tab PO DAILY 07/24/22 07/24/22 mg tablet,delayed release (Vitron-C) omeprazole 20 mg capsule,delayed 20 mg PO DAILY 07/24/22 07/24/22 release potassium chloride 20 mEq 20 meq PO DAILY 07/24/22 07/24/22 tablet,extended release(part/cryst) sacubitril 24 mg-valsartan 26 mg 0.5 tab PO BID 07/24/22 07/24/22 tablet Previous Rx's Medication Instructions Recorded albuterol sulfate 2.5 mg/3 mL 1.25 mg (1.5 mL) inhalation Q4H 07/15/22 (0.083 %) solution for nebulization PRN bronchospasm #90 mL budesonide-formoterol HFA 80 1 inh inhalation BID #10.2 grams 07/15/22 mcg-4.5 mcg/actuation aerosol inhaler (Symbicort) magnesium oxide 400 mg (241.3 mg 400 mg PO DAILY #30 tabs 07/15/22 magnesium) tablet tiotropium bromide 18 mcg capsule 1 cap inhalation DAILY #30 07/15/22 with inhalation device (Spiriva inhalations with HandiHaler) albuterol sulfate 90 mcg/actuation 2 puff inhalation Q4H PRN 07/18/22 aerosol inhaler Shortness Of Breath Or Wheezing #8.5 grams amiodarone 200 mg tablet 200 mg PO DAILY 30 days #30 tabs 07/18/22 apixaban 5 mg tablet (Eliquis) 5 mg PO BID #60 tabs 07/18/22 atorvastatin 80 mg tablet 80 mg PO DAILY 30 days #30 tabs 07/18/22 clopidogrel 75 mg tablet (Plavix) 75 mg PO DAILY 30 days #30 tabs 07/18/22 empagliflozin 10 mg tablet 10 mg PO QAM #30 tabs 07/18/22 (Jardiance) furosemide 20 mg tablet (Lasix) 20 mg PO QAM 30 days #30 tabs 07/18/22 Results & Data (ED) Vital Signs Vital Signs - 24 hr 07/24/22 11:42 07/24/22 11:50 07/24/22 12:10 Pulse Rate 99 H 99 H Pulse Rate [Apical] 99 H Pulse Rhythm Pulse Rhythm [Apical] Respiratory Rate 33 H 33 H 56 H Respiratory Effort / Characteristics Spontaneous Short of Breath Spontaneous Short of Breath Short of Breath Respiratory Depth Deep Respiratory Pattern Tachypnea Tachypnea Blood Pressure 131/71 Blood Pressure [Right Arm] Blood Pressure Mean 91 Blood Pressure Mean [Right Arm] Blood Pressure Position Lying Blood Pressure Position [Right Arm] Pulse Oximetry 97 99 99 Oxygen Delivery Method BiPAP BiPAP Fraction of Inspired Oxygen 40 40 100 SaO2/FiO2 Ratio 99 Sepsis Recent Fever Within 48 Hours No Sepsis New/Unexplained Change in Mental Status No Sepsis Action Taken by Nursing No Action Required 07/24/22 12:10 07/24/22 12:10 07/24/22 11:48 Pulse Rate Pulse Rate [Apical] 99 H Pulse Rhythm Pulse Rhythm [Apical] Respiratory Rate 56 H Respiratory Effort / Characteristics Short of Breath Short of Breath Respiratory Depth Deep Deep Respiratory Pattern Tachypnea Tachypnea Blood Pressure Blood Pressure [Right Arm] 131/71 Blood Pressure Mean Blood Pressure Mean [Right Arm] 91 Blood Pressure Position Blood Pressure Position [Right Arm] Lying Pulse Oximetry 99 Oxygen Delivery Method CPAP BiPAP CPAP Fraction of Inspired Oxygen 100 100 SaO2/FiO2 Ratio 99 Sepsis Recent Fever Within 48 Hours Sepsis New/Unexplained Change in Mental Status Sepsis Action Taken by Nursing 07/24/22 11:48 07/24/22 11:48 07/24/22 13:38 Pulse Rate 99 H 99 H Pulse Rate [Apical] 99 H Pulse Rhythm Regular Pulse Rhythm [Apical] Respiratory Rate 56 H 56 H Respiratory Effort / Characteristics Short of Breath Respiratory Depth Deep Respiratory Pattern Tachypnea Blood Pressure Blood Pressure [Right Arm] 131/71 Blood Pressure Mean Blood Pressure Mean [Right Arm] 91 Blood Pressure Position Blood Pressure Position [Right Arm] Lying Pulse Oximetry 99 99 92 Oxygen Delivery Method CPAP BiPAP CPAP Fraction of Inspired Oxygen 100 100 SaO2/FiO2 Ratio 99 92 Sepsis Recent Fever Within 48 Hours Sepsis New/Unexplained Change in Mental Status Sepsis Action Taken by Nursing 07/24/22 13:40 07/24/22 13:30 07/24/22 14:33 Pulse Rate Pulse Rate [Apical] 97 H 95 H 94 H Pulse Rhythm Pulse Rhythm [Apical] Regular Respiratory Rate 56 H 23 25 H Respiratory Effort / Characteristics Labored Short of Breath Respiratory Depth Deep Normal Respiratory Pattern Tachypnea Blood Pressure Blood Pressure [Right Arm] 130/77 130/77 86/50 L Blood Pressure Mean Blood Pressure Mean [Right Arm] 94 94 62 Blood Pressure Position Blood Pressure Position [Right Arm] Lying Lying Lying Pulse Oximetry 96 95 Oxygen Delivery Method BiPAP BiPAP BiPAP Fraction of Inspired Oxygen 40 SaO2/FiO2 Ratio Sepsis Recent Fever Within 48 Hours Sepsis New/Unexplained Change in Mental Status Sepsis Action Taken by Nursing 07/24/22 15:00 Pulse Rate Pulse Rate [Apical] 91 H Pulse Rhythm Pulse Rhythm [Apical] Regular Respiratory Rate 56 H Respiratory Effort / Characteristics Labored Respiratory Depth Deep Respiratory Pattern Tachypnea Blood Pressure Blood Pressure [Right Arm] 98/72 L Blood Pressure Mean Blood Pressure Mean [Right Arm] 80 Blood Pressure Position Blood Pressure Position [Right Arm] Lying Pulse Oximetry 96 Oxygen Delivery Method BiPAP Fraction of Inspired Oxygen 30 SaO2/FiO2 Ratio 320 Sepsis Recent Fever Within 48 Hours Sepsis New/Unexplained Change in Mental Status Sepsis Action Taken by Nursing Laboratory Data 07/24/22 11:50 07/24/22 11:50 Lab Results 07/24/22 07/24/22 07/24/22 Range/Units 11:50 11:50 11:50 WBC 13.75 H (4.8-10.8) K/ul RBC 3.50 L (4.63-6.08) M/uL Hgb 10.5 L (14.0-18.0) g/dl POC Hgb (14.0-18.0) g/dl Hct 34.0 L (40.1-51.0) % POC Hct (42-52) % MCV 97.1 (80.0-100.0) fL MCH 30.0 (25.0-34.0) pg MCHC 30.9 L (32.0-36.0) g/dL RDW Std Deviation 57.0 H (36.4-46.3) fL RDW Coeff of Gordon 15.9 H (11.5-14.5) % Plt Count 286 (130-400) K/uL MPV 9.8 (9.4-12.4) fL Immature Gran % (Auto) 0.6 % Neut % (Auto) 85.2 % Lymph % (Auto) 7.8 % [place] % (Auto) 6.0 % Eos % (Auto) 0.2 % Baso % (Auto) 0.2 % Neut # (Auto) 11.72 H (1.4-6.5) K/uL Lymph # (Auto) 1.07 L (1.2-3.4) K/uL [place] # (Auto) 0.82 (0.24-0.82) K/uL Eos # (Auto) 0.03 (0-0.50) K/uL Baso # (Auto) 0.03 (0-0.2) K/uL Immature Gran # (Auto) 0.08 H (0.00-0.02) K/uL PT 11.9 (9.0-12.0) Seconds INR 1.1 (0.9-1.1) VBG pH (7.36-7.41) VBG pCO2 (38-50) mmHg VBG pO2 mmHg VBG HCO3 mmol/L VBG O2 Saturation % VBG Base Excess mEq/L POC Sodium (135-144) mmol/L Sodium 134 L (136-145) mmol/L POC Potassium (3.3-5.0) mmol/L Potassium 3.9 (3.5-5.1) mmol/L POC Chloride (101-112) mmol/L Chloride 94 L (98-107) mmol/L Carbon Dioxide 33 H (21-32) mmol/L POC Total CO2 (24-31) mmol/L Anion Gap 7 (3-11) POC Anion Gap (16-25) mmol/L POC BUN (7-18) mg/dl BUN 16 (6-23) mg/dl Creatinine 0.61 (0.6-1.4) mg/dl POC Creatinine (0.6-1.3) mg/dl Est Cr Clr Drug Dosing 83.1 ml/min Est GFR ( Amer) 119.8 ml/min Est GFR (Non-Af Amer) 103.3 ml/min BUN/Creatinine Ratio 26.2 H (10-20) Glucose 138 H (70-99(Fasting)) mg/dl POC Glucose (other) (70-99) mg/dl Lactate (0.4-2.0) mmol/L Calcium 8.4 L (8.5-10.1) mg/dl POC Ioniz Calcium Amee (1.12-1.32) mmol/l Magnesium 1.6 L (1.7-2.4) mg/dl Total Bilirubin 1.4 H (0.2-1.0) mg/dl Direct Bilirubin 0.4 H (0-0.2) mg/dl AST 25 (13-39) U/L ALT 29 (7-52) U/L Alkaline Phosphatase 90 (34-104) U/L Troponin I High Sens 40.8 H (0-20) pg/ml B-Natriuretic Peptide (0-100) pg/ml Total Protein 6.1 (6.0-8.3) gm/dl Albumin 3.7 (3.4-5.0) gm/dl Procalcitonin (0-0.5) ng/ml Urine Color Urine Appearance (Clear) Urine pH (4.5-7.5) Ur Specific Pilot (1.000-1.030) Urine Protein (Negative) Urine Glucose (UA) (Negative) Urine Ketones (Negative) Urine Blood (Negative) Urine Nitrite (Negative) Urine Bilirubin (Negative) Urine Urobilinogen (Negative) Ur Leukocyte Esterase (Negative) Urine WBC (Auto) (0-5) /hpf Urine RBC (Auto) (0-4) /hpf U Hyaline Cast (Auto) (0-5) /lpf U Epithel Cells (Auto) (0-5) /lpf Urine Bacteria (Auto) (Negative) Nasal Screen MRSA (PCR) (Negative) Ethyl Alcohol mg/dL (<10.0) mg/dl SARS-CoV-2 (PCR) (Negative) Influenza Type A (PCR) (Neg) Influenza Type B (PCR) (Neg) RSV (RT-PCR) (Neg) 07/24/22 07/24/22 07/24/22 Range/Units 11:50 11:50 11:50 WBC (4.8-10.8) K/ul RBC (4.63-6.08) M/uL Hgb (14.0-18.0) g/dl POC Hgb (14.0-18.0) g/dl Hct (40.1-51.0) % POC Hct (42-52) % MCV (80.0-100.0) fL MCH (25.0-34.0) pg MCHC (32.0-36.0) g/dL RDW Std Deviation (36.4-46.3) fL RDW Coeff of Gordon (11.5-14.5) % Plt Count (130-400) K/uL MPV (9.4-12.4) fL Immature Gran % (Auto) % Neut % (Auto) % Lymph % (Auto) % [place] % (Auto) % Eos % (Auto) % Baso % (Auto) % Neut # (Auto) (1.4-6.5) K/uL Lymph # (Auto) (1.2-3.4) K/uL [place] # (Auto) (0.24-0.82) K/uL Eos # (Auto) (0-0.50) K/uL Baso # (Auto) (0-0.2) K/uL Immature Gran # (Auto) (0.00-0.02) K/uL PT (9.0-12.0) Seconds INR (0.9-1.1) VBG pH (7.36-7.41) VBG pCO2 (38-50) mmHg VBG pO2 mmHg VBG HCO3 mmol/L VBG O2 Saturation % VBG Base Excess mEq/L POC Sodium (135-144) mmol/L Sodium (136-145) mmol/L POC Potassium (3.3-5.0) mmol/L Potassium (3.5-5.1) mmol/L POC Chloride (101-112) mmol/L Chloride (98-107) mmol/L Carbon Dioxide (21-32) mmol/L POC Total CO2 (24-31) mmol/L Anion Gap (3-11) POC Anion Gap (16-25) mmol/L POC BUN (7-18) mg/dl BUN (6-23) mg/dl Creatinine (0.6-1.4) mg/dl POC Creatinine (0.6-1.3) mg/dl Est Cr Clr Drug Dosing ml/min Est GFR ( Amer) ml/min Est GFR (Non-Af Amer) ml/min BUN/Creatinine Ratio (10-20) Glucose (70-99(Fasting)) mg/dl POC Glucose (other) (70-99) mg/dl Lactate (0.4-2.0) mmol/L Calcium (8.5-10.1) mg/dl POC Ioniz Calcium Amee (1.12-1.32) mmol/l Magnesium (1.7-2.4) mg/dl Total Bilirubin (0.2-1.0) mg/dl Direct Bilirubin (0-0.2) mg/dl AST (13-39) U/L ALT (7-52) U/L Alkaline Phosphatase (34-104) U/L Troponin I High Sens (0-20) pg/ml B-Natriuretic Peptide 2629 H (0-100) pg/ml Total Protein (6.0-8.3) gm/dl Albumin (3.4-5.0) gm/dl Procalcitonin 0.06 (0-0.5) ng/ml Urine Color Urine Appearance (Clear) Urine pH (4.5-7.5) Ur Specific Pilot (1.000-1.030) Urine Protein (Negative) Urine Glucose (UA) (Negative) Urine Ketones (Negative) Urine Blood (Negative) Urine Nitrite (Negative) Urine Bilirubin (Negative) Urine Urobilinogen (Negative) Ur Leukocyte Esterase (Negative) Urine WBC (Auto) (0-5) /hpf Urine RBC (Auto) (0-4) /hpf U Hyaline Cast (Auto) (0-5) /lpf U Epithel Cells (Auto) (0-5) /lpf Urine Bacteria (Auto) (Negative) Nasal Screen MRSA (PCR) (Negative) Ethyl Alcohol mg/dL (<10.0) mg/dl SARS-CoV-2 (PCR) NEGATIVE (Negative) Influenza Type A (PCR) Negative (Neg) Influenza Type B (PCR) Negative (Neg) RSV (RT-PCR) Negative (Neg) 07/24/22 07/24/22 07/24/22 Range/Units 12:00 12:00 12:03 WBC (4.8-10.8) K/ul RBC (4.63-6.08) M/uL Hgb (14.0-18.0) g/dl POC Hgb 11.6 L (14.0-18.0) g/dl Hct (40.1-51.0) % POC Hct 34 L (42-52) % MCV (80.0-100.0) fL MCH (25.0-34.0) pg MCHC (32.0-36.0) g/dL RDW Std Deviation (36.4-46.3) fL RDW Coeff of Gordon (11.5-14.5) % Plt Count (130-400) K/uL MPV (9.4-12.4) fL Immature Gran % (Auto) % Neut % (Auto) % Lymph % (Auto) % [place] % (Auto) % Eos % (Auto) % Baso % (Auto) % Neut # (Auto) (1.4-6.5) K/uL Lymph # (Auto) (1.2-3.4) K/uL [place] # (Auto) (0.24-0.82) K/uL Eos # (Auto) (0-0.50) K/uL Baso # (Auto) (0-0.2) K/uL Immature Gran # (Auto) (0.00-0.02) K/uL PT (9.0-12.0) Seconds INR (0.9-1.1) VBG pH (7.36-7.41) VBG pCO2 (38-50) mmHg VBG pO2 mmHg VBG HCO3 mmol/L VBG O2 Saturation % VBG Base Excess mEq/L POC Sodium 133 L (135-144) mmol/L Sodium (136-145) mmol/L POC Potassium 4.2 (3.3-5.0) mmol/L Potassium (3.5-5.1) mmol/L POC Chloride 91 L (101-112) mmol/L Chloride (98-107) mmol/L Carbon Dioxide (21-32) mmol/L POC Total CO2 36 H (24-31) mmol/L Anion Gap (3-11) POC Anion Gap 11.0 L (16-25) mmol/L POC BUN 18 (7-18) mg/dl BUN (6-23) mg/dl Creatinine (0.6-1.4) mg/dl POC Creatinine 0.5 L (0.6-1.3) mg/dl Est Cr Clr Drug Dosing ml/min Est GFR ( Amer) ml/min Est GFR (Non-Af Amer) ml/min BUN/Creatinine Ratio (10-20) Glucose (70-99(Fasting)) mg/dl POC Glucose (other) 140 H (70-99) mg/dl Lactate 1.9 (0.4-2.0) mmol/L Calcium (8.5-10.1) mg/dl POC Ioniz Calcium Amee 1.10 L (1.12-1.32) mmol/l Magnesium (1.7-2.4) mg/dl Total Bilirubin (0.2-1.0) mg/dl Direct Bilirubin (0-0.2) mg/dl AST (13-39) U/L ALT (7-52) U/L Alkaline Phosphatase (34-104) U/L Troponin I High Sens (0-20) pg/ml B-Natriuretic Peptide (0-100) pg/ml Total Protein (6.0-8.3) gm/dl Albumin (3.4-5.0) gm/dl Procalcitonin (0-0.5) ng/ml Urine Color Urine Appearance (Clear) Urine pH (4.5-7.5) Ur Specific Pilot (1.000-1.030) Urine Protein (Negative) Urine Glucose (UA) (Negative) Urine Ketones (Negative) Urine Blood (Negative) Urine Nitrite (Negative) Urine Bilirubin (Negative) Urine Urobilinogen (Negative) Ur Leukocyte Esterase (Negative) Urine WBC (Auto) (0-5) /hpf Urine RBC (Auto) (0-4) /hpf U Hyaline Cast (Auto) (0-5) /lpf U Epithel Cells (Auto) (0-5) /lpf Urine Bacteria (Auto) (Negative) Nasal Screen MRSA (PCR) (Negative) Ethyl Alcohol mg/dL < 10.0 (<10.0) mg/dl SARS-CoV-2 (PCR) (Negative) Influenza Type A (PCR) (Neg) Influenza Type B (PCR) (Neg) RSV (RT-PCR) (Neg) 07/24/22 07/24/22 07/24/22 Range/Units 12:07 13:35 14:56 WBC (4.8-10.8) K/ul RBC (4.63-6.08) M/uL Hgb (14.0-18.0) g/dl POC Hgb (14.0-18.0) g/dl Hct (40.1-51.0) % POC Hct (42-52) % MCV (80.0-100.0) fL MCH (25.0-34.0) pg MCHC (32.0-36.0) g/dL RDW Std Deviation (36.4-46.3) fL RDW Coeff of Gordon (11.5-14.5) % Plt Count (130-400) K/uL MPV (9.4-12.4) fL Immature Gran % (Auto) % Neut % (Auto) % Lymph % (Auto) % [place] % (Auto) % Eos % (Auto) % Baso % (Auto) % Neut # (Auto) (1.4-6.5) K/uL Lymph # (Auto) (1.2-3.4) K/uL [place] # (Auto) (0.24-0.82) K/uL Eos # (Auto) (0-0.50) K/uL Baso # (Auto) (0-0.2) K/uL Immature Gran # (Auto) (0.00-0.02) K/uL PT (9.0-12.0) Seconds INR (0.9-1.1) VBG pH 7.23 L (7.36-7.41) VBG pCO2 83 H (38-50) mmHg VBG pO2 40 mmHg VBG HCO3 35 mmol/L VBG O2 Saturation < 60.0 % VBG Base Excess 4.4 mEq/L POC Sodium (135-144) mmol/L Sodium (136-145) mmol/L POC Potassium (3.3-5.0) mmol/L Potassium (3.5-5.1) mmol/L POC Chloride (101-112) mmol/L Chloride (98-107) mmol/L Carbon Dioxide (21-32) mmol/L POC Total CO2 (24-31) mmol/L Anion Gap (3-11) POC Anion Gap (16-25) mmol/L POC BUN (7-18) mg/dl BUN (6-23) mg/dl Creatinine (0.6-1.4) mg/dl POC Creatinine (0.6-1.3) mg/dl Est Cr Clr Drug Dosing ml/min Est GFR ( Amer) ml/min Est GFR (Non-Af Amer) ml/min BUN/Creatinine Ratio (10-20) Glucose (70-99(Fasting)) mg/dl POC Glucose (other) (70-99) mg/dl Lactate (0.4-2.0) mmol/L Calcium (8.5-10.1) mg/dl POC Ioniz Calcium Amee (1.12-1.32) mmol/l Magnesium (1.7-2.4) mg/dl Total Bilirubin (0.2-1.0) mg/dl Direct Bilirubin (0-0.2) mg/dl AST (13-39) U/L ALT (7-52) U/L Alkaline Phosphatase (34-104) U/L Troponin I High Sens (0-20) pg/ml B-Natriuretic Peptide (0-100) pg/ml Total Protein (6.0-8.3) gm/dl Albumin (3.4-5.0) gm/dl Procalcitonin (0-0.5) ng/ml Urine Color Yellow Urine Appearance Clear (Clear) Urine pH 6.0 (4.5-7.5) Ur Specific Pilot 1.020 (1.000-1.030) Urine Protein Trace H (Negative) Urine Glucose (UA) 3+ H (Negative) Urine Ketones Negative (Negative) Urine Blood Negative (Negative) Urine Nitrite Negative (Negative) Urine Bilirubin Negative (Negative) Urine Urobilinogen Negative (Negative) Ur Leukocyte Esterase Negative (Negative) Urine WBC (Auto) 1-5 (0-5) /hpf Urine RBC (Auto) 0-4 (0-4) /hpf U Hyaline Cast (Auto) 1-5 (0-5) /lpf U Epithel Cells (Auto) 5-10 H (0-5) /lpf Urine Bacteria (Auto) Negative (Negative) Nasal Screen MRSA (PCR) Negative (Negative) Ethyl Alcohol mg/dL (<10.0) mg/dl SARS-CoV-2 (PCR) (Negative) Influenza Type A (PCR) (Neg) Influenza Type B (PCR) (Neg) RSV (RT-PCR) (Neg) Administered Medications Cefepime HCl 2,000 mg/ Syringe 20 mls @ 5 mls/min IV Q8H FRANCOIS; Protocol Stop: 07/26/22 19:59 Last Admin: 07/24/22 19:59 Dose: 5 mls/min Documented By: YADIEL Magnesium Sulfate/Dextrose (Magnesium Sulfate / D5w) 1 gm in 100 mls @ 50 mls/hr IV Q2H FRANCOIS Stop: 07/25/22 03:29 Last Admin: 07/24/22 19:58 Dose: 50 mls/hr Documented By: YADIEL Miscellaneous ([facility] Protocol For Hyperglycemia) 1 each N/A ACHS FRANCOIS Stop: 07/26/22 16:32 Last Admin: 07/24/22 18:27 Dose: Not Given Documented By: CINDY Discontinued Medications Albuterol (Albut/Ipratrop 3mg/0.5mg Neb 3 Ml Vial) Confirm Administered Dose 12 ml .ROUTE .STK-MED ONE Stop: 07/24/22 11:49 Last Admin: 07/24/22 11:50 Dose: 12 ml Documented By: NATTY Albuterol (Albut/Ipratrop 3mg/0.5mg Neb 3 Ml Vial) 12 ml NEB ONE ONE; Protocol Stop: 07/24/22 11:50 Last Admin: 07/24/22 13:58 Dose: Not Given Documented By: TESSA Furosemide (Furosemide Inj 20 Mg/2 Ml Vial) 20 mg IV NOW STA Stop: 07/24/22 12:43 Last Admin: 07/24/22 13:14 Dose: 20 mg Documented By: TESSA Furosemide (Furosemide 40 Mg/4 Ml Vial) 40 mg IV ONE ONE Stop: 07/24/22 14:10 Last Admin: 07/24/22 14:30 Dose: 40 mg Documented By: HANNAH Furosemide (Furosemide 40 Mg/4 Ml Vial) 40 mg IV ONE ONE Stop: 07/24/22 18:25 Last Admin: 07/24/22 19:58 Dose: 40 mg Documented By: YADIEL Vancomycin HCl 1,500 mg/ (Sodium Chloride) 530 mls @ 200 mls/hr IV NOW ONE Stop: 07/24/22 15:04 Last Admin: 07/24/22 13:03 Dose: 200 mls/hr Documented By: TESSA Cefepime HCl (Maxipime) 2,000 mg in 20 mls @ 5 mls/min IV NOW STA; Protocol Stop: 07/24/22 12:29 Last Admin: 07/24/22 12:51 Dose: 5 mls/min Documented By: TESSA Metronidazole (Flagyl) 500 mg in 100 mls @ 100 mls/hr IV NOW STA Stop: 07/24/22 13:25 Last Infusion: 07/24/22 14:47 Dose: 0 mls/hr Documented By: Admin: 07/24/22 13:03 Dose: 100 mls/hr Documented By: TESSA Magnesium Sulfate/Dextrose (Magnesium Sulfate / D5w) 1 gm in 100 mls @ 50 mls/hr IV ONE ONE Stop: 07/24/22 19:14 Last Admin: 07/24/22 18:30 Dose: 50 mls/hr Documented By: CINDY Methylprednisolone (Methylprednisolone 125 Mg/2 Ml Vial) 125 mg IV NOW STA Stop: 07/24/22 11:50 Last Admin: 07/24/22 12:30 Dose: 125 mg Documented By: TESSA Imaging Data Radiologist's Impression: Chest X-Ray 07/24/22 11:51 XR chest 1V portable HISTORY: 66 years-old Male Sepsis acute sepsis COMPARISON: July 14, 2022 TECHNIQUE: AP view the chest FINDINGS: Cardiac silhouette is enlarged. Mixed interstitial and alveolar opacities appear generally stable. Small pleural effusions with persistent bibasilar consolidation. No pneumothorax. Degenerative changes of the shoulders and spine. Surgical clips of the right upper chest. IMPRESSION: 1. Megaly with pulmonary edema. 2. Small pleural effusions with mild bibasilar opacities appears similar to the 07/14/2022 exam. ACT 112: Negative or not required by law. The above report was generated using voice recognition software. It may contain grammatical, syntax or spelling errors. Electronically signed by: Torres Marshall M.D. 07/24/2022 12:24 PM Discharge Plan Visit Data Chief Complaint: Respiratory Distress Stated Complaint: RESP. DISTRESS, EDEMA ED Provider: Vadim Wade Discharge Problem: Acute respiratory failure with hypoxia and hypercapnia, Elevated troponin, Pneumonia, COPD (chronic obstructive pulmonary disease), Hypomagnesemia, CHF (congestive heart failure) Patient Disposition: Admitted As Inpatient Discharge Instructions Interventions: ED Discharge Assessment Last Done: 07/24/22 16:31 : Pneumonia Qualifiers: Pneumonia type: due to unspecified organism Laterality: bilateral COPD (chronic obstructive pulmonary disease) Qualifiers: COPD type: COPD with acute lower respiratory infection Qualified Code(s): J44.0 - Chronic obstructive pulmonary disease with (acute) lower respiratory infection CHF (congestive heart failure) Qualifiers: Heart failure type: systolic Heart failure chronicity: acute on chronic Qualified Code(s): I50.23 - Acute on chronic systolic (congestive) heart failure
[2022-07-24 12:38] LABS: Troponin I High Sensitivity 40.8 pg/ml (0-20)
[2022-07-24] MEDS ORDERED: FUROSEMIDE INJ 20 MG/2 ML VIAL IV STA (12:42)
--- NOTE | 2022-07-24 13:08 | History & Physical Report ---
Date of Service July 24, 2022 Assessment & Plan (1) Respiratory failure with hypoxia and hypercapnia: (2) Acute on chronic heart failure with reduced ejection fraction and diastolic dysfunction: Plan: Patient is 66-year-old male with PMH alcohol abuse, tobacco abuse, NSTEMI, history of cardiogenic shock, ischemic cardiomyopathy, atrial fibrillation anticoagulated on Eliquis, chest wall hematoma and others listed below presented to ER with complaint of shortness of breath. Reported that patient was noted to be hypoxic in the 70s on his home 4 L oxygen upon EMS arrival. EMS reported patient was also agitated when tried to place him on non-rebreather and reported to give ativan. Recently history cardiogenic shock, ischemic cardiomyopathy required intra- aortic balloon pump which was later upgraded to Impella, also required intubation for pulmonary edema at [facility]. Impella was removed. 05/31/2022 echo: EF: 20-25%, posterior and inferior wall akinetic, severe global hypokinesis, moderate MR, mild TR 07/08/2022 echo: EF: 45-50%, grade 2 diastolic dysfunction, moderate MR Upon arrival in ER patient was noted to be tachypneic and placed on BiPAP. During ER course patient with improved respiratory status WBC: 13, lactate: 1.9, procalcitonin: 0.06. BNP 2629, negative SARS-CoV-2, influenza, RSV PCR. EKG without acute ST changes CXR: Cardiomegaly with pulmonary edema. Small pleural effusions with mild bibasilar opacities appears similar to the 07/14/2022 exam. In ER was given Lasix 20 mg IV Additional 40 mg Lasix IV given Continue BiPAP Admit ICU N.p.o. on BiPAP Plan to hold Entresto until further cardiology recommendations Hold home Lasix, monitor I's and O's and response for further Lasix dosing In ER given cefepime, vancomycin. We will continue empiric antibiotics for possible pneumonia. Patient recently treated for pneumonia MRSA swab negative, will hold on further vancomycin Initial high-sensitivity troponin: 40.8. Trend troponin Echo Cardiology consult. Spoke with on-call, Dr. Awan recommended ICU admission. If patient declines, low threshold to transfer to [facility] Further management per dramatic critic (3) Hypomagnesemia: Plan: Magnesium: 1.6 Replace and monitor (4) CAD (coronary artery disease): Plan: 05/31/2022: NSTEMI, cardiogenic shock. S/p cardiac cath which showed severe multivessel CAD and was transferred to [facility]. Had multivessel PCI at [facility]. On atorvastatin, Plavix (5) Paroxysmal atrial fibrillation: Plan: History onset atrial fibrillation during hospitalization at [facility] On amiodarone, Eliquis (6) Diabetes mellitus, type II: Plan: A1c: 5.3 on 07/08/2022 Hold Jardiance NovoLog sliding scale per protocol (7) COPD (chronic obstructive pulmonary disease): Plan: Continue home inhalers (8) Anemia: Plan: Hgb: 10.5. Was 9.5 on 07/15/22 On iron supplement DVT Prophylaxis On Eliquis Disposition ICU Full Code as per discussion with pt and pt's daughter Follows with Dr Andrew for routine care Pt was seen and care coordinated with Dr Pompa. See addendum I spent a total of 85 minutes reviewing notes, outpatient records, labs, medication, coordinating with specialists, documenting and providing care for this patient excluding time spent in the performance of separately billed services. History of Present Illness Chief Complaint: SOB Primary Care Provider: Elan Andrew DO Patient is 66-year-old male with PMH alcohol abuse, tobacco abuse, NSTEMI, history of cardiogenic shock, ischemic cardiomyopathy, atrial fibrillation anticoagulated on Eliquis, chest wall hematoma and others listed below presented to ER with complaint of shortness of breath. History obtained from patient, patient's daughter and extensive chart review. Hospital admission at [facility] on 05/31/2022 for acute respiratory failure, NSTEMI, cardiogenic shock, CHF, COPD exacerbation. Had urgent cardiac cath which showed severe multivessel CAD and was transferred to [facility]. At [facility] placed on intra-aortic balloon pump which was later upgraded to Impella. Had multivessel PCI. Hospital course was complicated by hemorrhagic shock and cardiogenic shock. He was intubated for pulmonary edema. Treated for pneumonia. He eventually was extubated and Impella removed. Had new onset A. fib during hospitalization. Discharged on Eliquis and amiodarone. [facility]. Repeat hospitalization at [facility] on 07/08/2022-07/15/22 for acute respiratory failure, acute on chronic CHF, pneumonia. Patient required BiPAP, IV diuresis. He was discharged on 2L oxygen at rest and 4L with ambulation Daughter states called patient this morning and said he was not feeling himself. She states when she got to house she noted him to be short of breath. Patient seemed a little sweaty. EMS was called. It is reported that patient was noted to be hypoxic in the 70s on his home 4 L oxygen upon EMS arrival. EMS reported patient was also agitated. Upon arrival in ER patient was placed on BiPAP. During ER course patient with improved respiratory status. Further history obtained from patient's daughter who reports patient has had nonproductive cough since prior hospitalizations, however has not noticed any increased cough. Patient sleeps with 2 pillows and that has not changed during the past couple of weeks. Denies PND recently. Daughter notes increased leg swelling bilaterally over past couple of days which seems worse today. Saw PCP on 07/22/22 and was noted to have lower BP so Entresto dose was decreased. Daughter has been helping patient with medications. Denies any noted fever/chills, N/V/D/C, HATCH, dizziness, syncope, vision changes, neck pain, CP, palpitations, hemoptysis, sore throat, otalgia, rhinorrhea, abdominal pain, increased weakness, rashes, urinary symptoms. Chart review. 05/31/2022 echo: EF: 20-25%, posterior and inferior wall akinetic, severe global hypokinesis, moderate MR, mild TR 07/08/2022 echo: EF: 45-50%, grade 2 diastolic dysfunction, moderate MR 06/09/22 CT chest/abdomen/pelvis with findings of active extravasation from the Impella insertion site into the right subclavian with associated right pectoral pseudoaneurysm and hematoma measuring 4.4 X6.6X 4.9 cm. Consolidative and tree-in-bud opacities scattered throughout the lungs, most prominent in AMIRA, concerning for multifocal pneumonia. Cavitary lesion in RUL measuring 4.5 cm may represent cavitary pneumonia or cavitating mass. 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 Small hematomas and fat stranding surrounding bilateral femoral artery access sites Allergies Allergy/AdvReac Type Severity Reaction Status Date / Time piperacillin [From Zosyn] Allergy Unknown ON Verified 07/08/22 02:26 [facility] tazobactam [From Zosyn] Allergy Unknown ON Verified 07/08/22 02:26 [facility] Home Medications Medication Instructions Recorded Confirmed Type albuterol sulfate 2.5 mg/3 mL 1.25 mg (1.5 mL) inhalation Q4H 07/15/22 07/24/22 Rx (0.083 %) solution for nebulization PRN bronchospasm #90 mL budesonide-formoterol HFA 80 1 inh inhalation BID #10.2 grams 07/15/22 07/24/22 Rx mcg-4.5 mcg/actuation aerosol inhaler (Symbicort) magnesium oxide 400 mg (241.3 mg 400 mg PO DAILY #30 tabs 07/15/22 07/24/22 Rx magnesium) tablet tiotropium bromide 18 mcg capsule 1 cap inhalation DAILY #30 07/15/22 07/24/22 Rx with inhalation device (Spiriva inhalations with HandiHaler) albuterol sulfate 90 mcg/actuation 2 puff inhalation Q4H PRN 07/18/22 07/24/22 Rx aerosol inhaler Shortness Of Breath Or Wheezing #8.5 grams amiodarone 200 mg tablet 200 mg PO DAILY 30 days #30 tabs 07/18/22 07/24/22 Rx apixaban 5 mg tablet (Eliquis) 5 mg PO BID #60 tabs 07/18/22 07/24/22 Rx atorvastatin 80 mg tablet 80 mg PO DAILY 30 days #30 tabs 07/18/22 07/24/22 Rx clopidogrel 75 mg tablet (Plavix) 75 mg PO DAILY 30 days #30 tabs 07/18/22 07/24/22 Rx empagliflozin 10 mg tablet 10 mg PO QAM #30 tabs 07/18/22 07/24/22 Rx (Jardiance) furosemide 20 mg tablet (Lasix) 20 mg PO QAM 30 days #30 tabs 07/18/22 07/24/22 Rx iron,carbonyl 65 mg-vitamin C 125 1 tab PO DAILY 07/24/22 07/24/22 History mg tablet,delayed release (Vitron-C) omeprazole 20 mg capsule,delayed 20 mg PO DAILY 07/24/22 07/24/22 History release potassium chloride 20 mEq 20 meq PO DAILY 07/24/22 07/24/22 History tablet,extended release(part/cryst) sacubitril 24 mg-valsartan 26 mg 0.5 tab PO BID 07/24/22 07/24/22 History tablet Past Med/Surg History Medical History (Updated 07/24/22 @ 20:29 by Vadim Wade MD) Advanced care planning/counseling discussion Alcohol use disorder CAD (coronary artery disease) Multivessel disease COPD (chronic obstructive pulmonary disease) Diabetes mellitus, type II Heart failure with reduced ejection fraction HTN (hypertension) Ischemic cardiomyopathy Lung nodule NSTEMI (non-ST elevation myocardial infarction) Palliative care encounter Paroxysmal atrial fibrillation Surgical History Hx of colonoscopy Family History Other Cancer Hypertension Social History Smoking Status: Former smoker Tobacco Type: Cigarettes Hx Alcohol Use: Yes Alcohol type: beer Alcohol type Comment: 5 beers nightly, last drink 05/30/22 Hx Substance Use: No Preferred Language: Azerbaijani Communication Ability: Effective 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 Helper Required: No Beliefs That Will Affect Care: None Current Living Situation: Family Other Information That Helps Us Care for You: No Feels Safe at Home: Yes Safety Concerns: Feels Safe At This Time Assistive Devices: Cane, Denture - Upper, Denture - Lower, Oxygen - Continuous and Walker Review of Systems Review of Systems: All systems reviewed & are unremarkable except as noted in HPI & below Physical Exam Physical Exam: General: acute on Chronic ill appearing, appears fairly comfortable on bipap currently, WDWN Head: normocephalic, atraumatic Eyes: conjunctiva non-injected, anicteric ENT: normal inspection external ears, nose, mucous membranes moist Neck: supple, trachea midline Lungs: +rales bases, Currently on Bipap with R:24, sats: 96% CV: Regular rhythm, rate 98, 2-3+ pretibial edema Abd: normal BS, soft, non-tender Ext: no cyanosis, no erythema, no calf tenderness Neuro: A&O x 3, no focal deficits noted, normal affect Skin: warm, dry Results & Data Results & Data ([facility]) Vital Signs (Past 12 Hours) Vital Signs Pulse Pulse Resp BP BP Pulse Ox O2 Del Method 07/24/22 11:48 99 H 56 H 131/71 99 07/24/22 11:48 99 H 56 H 99 CPAP 07/24/22 11:48 CPAP 07/24/22 12:10 99 H 56 H 131/71 99 CPAP 07/24/22 12:10 CPAP 07/24/22 12:10 99 H 56 H 131/71 99 CPAP 07/24/22 11:50 99 H 33 H 99 BiPAP 07/24/22 11:42 99 H 33 H 97 FiO2 07/24/22 11:48 07/24/22 11:48 100 07/24/22 11:48 07/24/22 12:10 100 07/24/22 12:10 100 07/24/22 12:10 100 07/24/22 11:50 40 07/24/22 11:42 40 Laboratory Results Short CBC 07/24/22 Range/Units 11:50 WBC 13.75 H (4.8-10.8) K/ul Hgb 10.5 L (14.0-18.0) g/dl Hct 34.0 L (40.1-51.0) % Plt Count 286 (130-400) K/uL BMP 07/24/22 11:50 Sodium 134 L Potassium 3.9 Chloride 94 L Carbon Dioxide 33 H BUN 16 Creatinine 0.61 Glucose 138 H Calcium 8.4 L Liver Function 07/24/22 Range/Units 11:50 Total Bilirubin 1.4 H (0.2-1.0) mg/dl Direct Bilirubin 0.4 H (0-0.2) mg/dl AST 25 (13-39) U/L ALT 29 (7-52) U/L Alkaline Phosphatase 90 (34-104) U/L Albumin 3.7 (3.4-5.0) gm/dl Urine 07/24/22 Range/Units 13:35 Urine Color Yellow Urine Appearance Clear (Clear) Urine pH 6.0 (4.5-7.5) Ur Specific [place] 1.020 (1.000-1.030) Urine Protein Trace H (Negative) Urine Glucose (UA) 3+ H (Negative) Diagnostic Findings Chest X-Ray 07/24/22 11:51 XR chest 1V portable HISTORY: 66 years-old Male Sepsis acute sepsis COMPARISON: July 14, 2022 TECHNIQUE: AP view the chest FINDINGS: Cardiac silhouette is enlarged. Mixed interstitial and alveolar opacities appear generally stable. Small pleural effusions with persistent bibasilar consolidation. No pneumothorax. Degenerative changes of the shoulders and spine. Surgical clips of the right upper chest. IMPRESSION: 1. Megaly with pulmonary edema. 2. Small pleural effusions with mild bibasilar opacities appears similar to the 07/14/2022 exam. ACT 112: Negative or not required by law. The above report was generated using voice recognition software. It may contain grammatical, syntax or spelling errors. Electronically signed by: Torres Marshall M.D. 07/24/2022 12:24 PM ECG Rate (beats per minute): 98 Rhythm: sinus rhythm Findings: + nonspecific-ST abn Supervising Physician Co-Signing Physician Notes Date of Service: July 24, 2022 History and physical exam performed by ri History notable for 66-year-old man with significant recent medical history including NSTEMI, acute respiratory failure, cardiogenic shock, EF of 25%, cardiac catheterization which showed severe multivessel disease with calcified and occluded left circumflex and was transferred to [place] where he required IABP that was later updated to Impella and then ultimately removed, status post multivessel PCI complicated by hemorrhagic shock and cardiogenic shock and found to have new onset A. fib at the time and started on amiodarone and Eliquis and ULTIMATELY [facility] 07/02/2022, was recently hospitalized here and discharged on 07/15/2022, presents with worsening shortness of breath. History provided by patient and daughter was at bedside. Daughter noted that she has noticed some leg swelling on Monday 1 she had taken into his doctor and during the visit his Entresto was decreased due to lower blood pressure. Patient reported not feeling well and when daughter arrived noted him to be in respiratory distress with shortness of breath and called EMS. Was noted to be hypoxic in the 70s. Patient currently on BiPAP, tachypneic, basilar crackles, bilateral pitting edema up to the knees. Labs notable for leukocytosis, hemoglobin of 10.5, VBG pH of 7.23, repeat PCO2 of 83, bicarb of 33, magnesium of 1.6, total bilirubin of 1.4, troponin of 40.80, BNP of 2629. Chest x-ray noted cardiomegaly with pulmonary edema, small pleural effusion with mild bibasilar opacities Acute on chronic respiratory failure with hypoxia and hypercapnia. Acute chronic systolic heart failure Got lasix IV Monitor I/O On BIPAP Borderline hypotension Cards recommends admit to ICU Admit ICU. [place] consult Trend trops Replete mag Echo Considering recent treatment for pneumonia, continue antibiotic coverage for now Other plans as detailed by Nora Haas PA-C (1) Respiratory failure with hypoxia and hypercapnia Chronicity: acute on chronic Qualified Code(s): J96.21 - Acute and chronic respiratory failure with hypoxia; J96.22 - Acute and chronic respiratory failure with hypercapnia; J96.22 - Acute and chronic respiratory failure with hypercapnia
[2022-07-24 13:42] LABS: Influenza A virus by PCR Negative (Neg); Influenza B virus by PCR Negative (Neg); RSV by PCR Negative (Neg); SARS CoV2 RNA(COVID-19) Ceph NEGATIVE (Negative)
[2022-07-24 13:55] LABS: Appearance Urine Clear (Clear); Bacteria Urine Automated Negative (Negative); Bilirubin Urine Negative (Negative); Blood Urine Negative (Negative); Color Urine Yellow; Glucose Urine UA 3+ (Negative); Ketones Urine Negative (Negative); Leukocyte Esterase Urine Negative (Negative); Nitrite Urine Negative (Negative); Protein Urine Trace (Negative); RBC Urine Automated 0-4 /hpf (0-4); Urobilinogen Urine Negative (Negative)
[2022-07-24] MEDS ORDERED: FUROSEMIDE 40 MG/4 ML VIAL IV ONE ×2 (14:09→18:24)
[2022-07-24] MEDS ORDERED: VANCOMYCIN HCL 1,000 MG in SODIUM CHLORIDE 0.9% 500 ML IV SCH (16:33)
[2022-07-24] MEDS ORDERED: MAGNESIUM SULFATE / D5W 1 GM/100 ML BAG IV ONE (17:15)
--- NOTE | 2022-07-24 18:07 | Critical Care Consultation ---
Date of Consultation July 24, 2022 Assessment & Plan (1) Respiratory failure with hypoxia and hypercapnia: Reason Critically Ill: 66-year-old male with hypotension, hypercapnic respiratory failure. PLAN: Neuro: Acute encephalopathy: Resolved -Per records patient required Ativan for agitation upon initial presentation Resp: Acute on chronic hypoxic respiratory failure -Baseline oxygen requirement is 2 L at rest 4 L with activity. COPD -From prior pulmonary notes patient is not hypercapnic at baseline, awaiting additional testing CV: Ischemic cardiomyopathy Acute on chronic CHF: Clinically most consistent with volume overload -Elevated troponins, mild -Elevated BNP -Reports of 1.6 L fluid off however as patient still exhibiting signs of significant volume overload Fluids/Renal: Hypomagnesemic -4 g IV ID: Covered with broad-spectrum antibiotics: Cefepime, vancomycin, Flagyl - procalcitonin negative GI/Nutrition: N.p.o. Heme: Anemia -At baseline DVT prophylaxis: Eliquis for paroxysmal atrial fibrillation Endocrine: ICU hyperglycemia protocol Vascular access: Peripheral IVs Code Status: Full code: Last palliative care note reviewed Disposition: ICU (2) Anemia: (3) CAD (coronary artery disease): (4) Heart failure with reduced ejection fraction: (5) Ischemic cardiomyopathy: (6) Pulmonary edema: (7) Elevated troponin: History of Present Illness Reason for Consultation: Acute on chronic CHF with acute on chronic COPD Attending Physician: Haylie Pompa MD History of Present Illness Patient is a 66-year-old male with a rather recent complex history of medical decompensation. And approximately late May patient was seen for acute respiratory failure, non-ST elevation LA, cardiogenic shock and COPD exacerbation which during cardiac cath he was found to have severe multivessel coronary artery disease and transfer to [facility]. At [facility] he had aortic balloon pump for circulatory support which was later upgraded to an Impella. Hospital records indicate that his course was complicated by hemorrhagic and cardiogenic shock and required a complex PCI. He was also intubated and diagnosed with a pneumonia. Ultimately the patient was discharged on Eliquis and amiodarone and left after spending approximately the whole month of June in [facility] to [facility]. He was rehospitalized [facility] on July 08, 2022 for acute on chronic hypoxic and hypercapnic respiratory failure as well as acute on chronic CHF, and a multilobar pneumonia. He was ultimately discharged 9 days ago. Of note the patient was seen by his primary care physician on July 22 and medical records indicate the patient had his dose of Wilder decreased secondary to lower blood pressure. Records appear to indicate that the patient was seen by his daughter this morning who after the patient contacted her feeling that things were not right with him. The daughter contacted EMS after he was found to be significantly short of breath. Records indicate he was hypoxic in the 70s despite being on 4 L nasal cannula. Patient reports that he does not know his "dry weight "however he reports that his lower extremities have been swelling. Allergies Allergy/AdvReac Type Severity Reaction Status Date / Time piperacillin [From Zosyn] Allergy Unknown ON Verified 07/08/22 02:26 [facility] tazobactam [From Zosyn] Allergy Unknown ON Verified 07/08/22 02:26 [facility] Home Medications Medication Instructions Recorded Confirmed Type albuterol sulfate 2.5 mg/3 mL 1.25 mg (1.5 mL) inhalation Q4H 07/15/22 07/24/22 Rx (0.083 %) solution for nebulization PRN bronchospasm #90 mL budesonide-formoterol HFA 80 1 inh inhalation BID #10.2 grams 07/15/22 07/24/22 Rx mcg-4.5 mcg/actuation aerosol inhaler (Symbicort) magnesium oxide 400 mg (241.3 mg 400 mg PO DAILY #30 tabs 07/15/22 07/24/22 Rx magnesium) tablet tiotropium bromide 18 mcg capsule 1 cap inhalation DAILY #30 07/15/22 07/24/22 Rx with inhalation device (Spiriva inhalations with HandiHaler) albuterol sulfate 90 mcg/actuation 2 puff inhalation Q4H PRN 07/18/22 07/24/22 Rx aerosol inhaler Shortness Of Breath Or Wheezing #8.5 grams amiodarone 200 mg tablet 200 mg PO DAILY 30 days #30 tabs 07/18/22 07/24/22 Rx apixaban 5 mg tablet (Eliquis) 5 mg PO BID #60 tabs 07/18/22 07/24/22 Rx atorvastatin 80 mg tablet 80 mg PO DAILY 30 days #30 tabs 07/18/22 07/24/22 Rx clopidogrel 75 mg tablet (Plavix) 75 mg PO DAILY 30 days #30 tabs 07/18/22 07/24/22 Rx empagliflozin 10 mg tablet 10 mg PO QAM #30 tabs 07/18/22 07/24/22 Rx (Jardiance) furosemide 20 mg tablet (Lasix) 20 mg PO QAM 30 days #30 tabs 07/18/22 07/24/22 Rx iron,carbonyl 65 mg-vitamin C 125 1 tab PO DAILY 07/24/22 07/24/22 History mg tablet,delayed release (Vitron-C) omeprazole 20 mg capsule,delayed 20 mg PO DAILY 07/24/22 07/24/22 History release potassium chloride 20 mEq 20 meq PO DAILY 07/24/22 07/24/22 History tablet,extended release(part/cryst) sacubitril 24 mg-valsartan 26 mg 0.5 tab PO BID 07/24/22 07/24/22 History tablet Patient History Medical History Advanced care planning/counseling discussion Alcohol use disorder CAD (coronary artery disease) Multivessel disease COPD (chronic obstructive pulmonary disease) Heart failure with reduced ejection fraction HTN (hypertension) Ischemic cardiomyopathy Lung nodule NSTEMI (non-ST elevation myocardial infarction) Palliative care encounter Surgical History Hx of colonoscopy Family History Other Cancer Hypertension Social History Smoking Status: Former smoker Tobacco Type: Cigarettes Hx Alcohol Use: Yes Alcohol type: beer Alcohol type Comment: 5 beers nightly, last drink 05/30/22 Hx Substance Use: No Preferred Language: Samoan Communication Ability: Effective 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 Denies dietary indiscretion. Physical Exam Physical Exam: General: Sleeping in the room upon entry, easily rousable. Skin: Warm, dry, Head: Atraumatic Ears, nose, mouth and throat: BiPAP mask present Cardiovascular: Mildly decreased capillary refill Respiratory: Mild tachypnea, BiPAP settings reviewed Gastrointestinal: Non distended Musculoskeletal: No deformity, 2+ pitting edema up to the knee Results & Data Results & Data ([facility]) Vital Signs (Past 12 Hours) Vital Signs Temp Pulse Pulse Resp BP BP Pulse Ox 07/24/22 17:15 86 26 H 90 07/24/22 17:15 81/52 L 07/24/22 17:00 87 31 H 95 07/24/22 17:00 87/53 L 07/24/22 16:45 86 31 H 100 07/24/22 16:30 88 28 H 92 07/24/22 16:33 07/24/22 16:33 36.3 C L 87 28 H 90/54 L 94 07/24/22 16:33 88 07/24/22 16:31 97 H 50 H 99/75 L 07/24/22 16:25 100 H 32 H 94 07/24/22 15:00 91 H 56 H 98/72 L 96 07/24/22 14:33 94 H 25 H 86/50 L 07/24/22 13:30 95 H 23 130/77 95 07/24/22 13:40 97 H 56 H 130/77 96 07/24/22 13:38 99 H 92 07/24/22 11:48 99 H 56 H 131/71 99 07/24/22 11:48 99 H 56 H 99 07/24/22 11:48 07/24/22 12:10 99 H 56 H 131/71 99 07/24/22 12:10 07/24/22 12:10 99 H 56 H 131/71 99 07/24/22 11:50 99 H 33 H 99 07/24/22 11:42 99 H 33 H 97 O2 Del Method FiO2 07/24/22 17:15 50 07/24/22 17:15 07/24/22 17:00 07/24/22 17:00 07/24/22 16:45 07/24/22 16:30 07/24/22 16:33 BiPAP 30 07/24/22 16:33 BiPAP 30 07/24/22 16:33 07/24/22 16:31 BiPAP 40 07/24/22 16:25 30 07/24/22 15:00 BiPAP 30 07/24/22 14:33 BiPAP 40 07/24/22 13:30 BiPAP 07/24/22 13:40 BiPAP 07/24/22 13:38 CPAP 100 07/24/22 11:48 BiPAP 07/24/22 11:48 CPAP 100 07/24/22 11:48 CPAP 07/24/22 12:10 BiPAP 100 07/24/22 12:10 CPAP 100 07/24/22 12:10 BiPAP 100 07/24/22 11:50 BiPAP 40 07/24/22 11:42 40 Critical Care Results & Data Vital Signs (Past 12 Hours) Vital Signs Temp Pulse Pulse Resp BP BP Pulse Ox 07/24/22 17:15 86 26 H 90 07/24/22 17:15 81/52 L 07/24/22 17:00 87 31 H 95 07/24/22 17:00 87/53 L 07/24/22 16:45 86 31 H 100 07/24/22 16:30 88 28 H 92 07/24/22 16:33 07/24/22 16:33 36.3 C L 87 28 H 90/54 L 94 07/24/22 16:33 88 07/24/22 16:31 97 H 50 H 99/75 L 07/24/22 16:25 100 H 32 H 94 07/24/22 15:00 91 H 56 H 98/72 L 96 07/24/22 14:33 94 H 25 H 86/50 L 07/24/22 13:30 95 H 23 130/77 95 07/24/22 13:40 97 H 56 H 130/77 96 07/24/22 13:38 99 H 92 07/24/22 11:48 99 H 56 H 131/71 99 07/24/22 11:48 99 H 56 H 99 07/24/22 11:48 07/24/22 12:10 99 H 56 H 131/71 99 07/24/22 12:10 07/24/22 12:10 99 H 56 H 131/71 99 07/24/22 11:50 99 H 33 H 99 07/24/22 11:42 99 H 33 H 97 O2 Del Method FiO2 07/24/22 17:15 50 07/24/22 17:15 07/24/22 17:00 07/24/22 17:00 07/24/22 16:45 07/24/22 16:30 07/24/22 16:33 BiPAP 30 07/24/22 16:33 BiPAP 30 07/24/22 16:33 07/24/22 16:31 BiPAP 40 07/24/22 16:25 30 07/24/22 15:00 BiPAP 30 07/24/22 14:33 BiPAP 40 07/24/22 13:30 BiPAP 07/24/22 13:40 BiPAP 07/24/22 13:38 CPAP 100 07/24/22 11:48 BiPAP 07/24/22 11:48 CPAP 100 07/24/22 11:48 CPAP 07/24/22 12:10 BiPAP 100 07/24/22 12:10 CPAP 100 07/24/22 12:10 BiPAP 100 07/24/22 11:50 BiPAP 40 07/24/22 11:42 40 Lab & Micro Results (Past 24 Hours) RBC 3.50 M/uL (4.63-6.08) L 07/24/22 WBC 13.75 K/ul (4.8-10.8) H 07/24/22 Hgb 10.5 g/dl (14.0-18.0) L 07/24/22 Hct 34.0 % (40.1-51.0) L 07/24/22 MCV 97.1 fL (80.0-100.0) 07/24/22 MCH 30.0 pg (25.0-34.0) 07/24/22 MCHC 30.9 g/dL (32.0-36.0) L 07/24/22 RDW Standard Deviation 57.0 fL (36.4-46.3) H 07/24/22 RDW Coefficient of Variation 15.9 % (11.5-14.5) H 07/24/22 Plt Count 286 K/uL (130-400) 07/24/22 MPV 9.8 fL (9.4-12.4) 07/24/22 Neutrophils (%) (Auto) 85.2 % 07/24/22 Lymphocytes (%) (Auto) 7.8 % 07/24/22 Monocytes # (Auto) 0.82 K/uL (0.24-0.82) 07/24/22 Eosinophils # (Auto) 0.03 K/uL (0-0.50) 07/24/22 Immature Granulocyte % (Auto) 0.6 % 07/24/22 Neutrophils # (Auto) 11.72 K/uL (1.4-6.5) H 07/24/22 Lymphocytes # (Auto) 1.07 K/uL (1.2-3.4) L 07/24/22 Monocytes # (Auto) 0.82 K/uL (0.24-0.82) 07/24/22 Eosinophils # (Auto) 0.03 K/uL (0-0.50) 07/24/22 Basophils # (Auto) 0.03 K/uL (0-0.2) 07/24/22 Immature Granulocyte # (Auto) 0.08 K/uL (0.00-0.02) H 07/24 Na 134 mmol/L (136-145) L 07/24/22 K 3.9 mmol/L (3.5-5.1) 07/24/22 Cl 94 mmol/L (98-107) L 07/24/22 CO2 33 mmol/L (21-32) H 07/24/22 Anion Gap 7 (3-11) 07/24/22 BUN 16 mg/dl (6-23) 07/24/22 Creatinine 0.61 mg/dl (0.6-1.4) 07/24/22 Estimated GFR ( Amer) 119.8 ml/min 07/24/22 Estimated GFR (Non-Af Amer) 103.3 ml/min 07/24/22 BUN/Creatinine Ratio 26.2 (10-20) H 07/24/22 Glu 138 mg/dl (70-99(Fasting)) H 07/24/22 Ca 8.4 mg/dl (8.5-10.1) L 07/24/22 Total Bilirubin 1.4 mg/dl (0.2-1.0) H 07/24/22 Direct Bilirubin 0.4 mg/dl (0-0.2) H 07/24/22 AST 25 U/L (13-39) 07/24/22 ALT 29 U/L (7-52) 07/24/22 Alkaline Phosphatase 90 U/L (34-104) 07/24/22 TP 6.1 gm/dl (6.0-8.3) 07/24/22 Albumin 3.7 gm/dl (3.4-5.0) 07/24/22 Mg 1.6 mg/dl (1.7-2.4) L 07/24/22 11:50 Calcium Level 8.4 mg/dl (8.5-10.1) L 07/24/22 11:50 Prothromb Time International Ratio 1.1 (0.9-1.1) 07/24/22 11:5 0 Venous Blood pH 7.23 (7.36-7.41) L 07/24/22 12:07 Venous Blood Partial Pressure CO2 83 mmHg (38-50) H 07/24/22 12 :07 Venous Blood Partial Pressure O2 40 mmHg 07/24/22 12:07 Venous Blood HCO3 35 mmol/L 07/24/22 12:07 Venous Blood Base Excess 4.4 mEq/L 07/24/22 12:07 Venous Blood Oxygen Saturation < 60.0 % 07/24/22 12:07 Diagnostic Findings (Past 24 Hours) Chest X-Ray 07/24/22 11:51 XR chest 1V portable HISTORY: 66 years-old Male Sepsis acute sepsis COMPARISON: July 14, 2022 TECHNIQUE: AP view the chest FINDINGS: Cardiac silhouette is enlarged. Mixed interstitial and alveolar opacities appear generally stable. Small pleural effusions with persistent bibasilar consolidation. No pneumothorax. Degenerative changes of the shoulders and spine. Surgical clips of the right upper chest. IMPRESSION: 1. Megaly with pulmonary edema. 2. Small pleural effusions with mild bibasilar opacities appears similar to the 07/14/2022 exam. ACT 112: Negative or not required by law. The above report was generated using voice recognition software. It may contain grammatical, syntax or spelling errors. Electronically signed by: Torres Marshall M.D. 07/24/2022 12:24 PM I & O Totals 24 Hours 07/23/22 07/24/22 07/25/22 06:59 06:59 06:59 Intake Total 100 / 100 Output Total 2350 / 2350 Balance -2250 / -2250 Cumulative 07/24/22 11:22 thru 07/24/22 17:28 Intake Total 100 Output Total 2350 Balance -2250 RT Ventilator Mngmt (Last Documented) Ventilator Ordered Settings Respiratory Rate 26 07/24/22 17 :15 Fraction of Inspired Oxygen 50 07/24/22 17:15 Ventilator - PT Measurements Respiratory Rate 26 Coding Level of Care Code Critical Care 1st 30-74 mins Diagnoses Respiratory failure with hypoxia and hypercapnia J96.21; J96.22; J96.22 Chronicity: acute on chronic Anemia D64.9 CAD (coronary artery disease) I25.10 Heart failure with reduced ejection fraction I50.20 Ischemic cardiomyopathy I25.5 Pulmonary edema J81.0 Chronicity: acute Elevated troponin R77.8 Time Spent (min) 40 (1) Respiratory failure with hypoxia and hypercapnia Chronicity: acute on chronic Qualified Code(s): J96.21 - Acute and chronic r espiratory failure with hypoxia; J96.22 - Acute and chronic respiratory failure with hypercapnia; J96.22 - Acute and chronic respiratory failure with hypercapnia (2) Pulmonary edema Chronicity: acute Qualified Code(s): J81.0 - Acute pulmonary edema
[2022-07-24] MEDS ORDERED: ALBUTEROL HFA 8 GM INHALER INH PRN (18:18)
[2022-07-24] MEDS: ICU Protocol for HYPERglycemia SCH ×2 (18:27→20:50)
--- NOTE | 2022-07-24 19:55 | Communication Note ---
Date of Service: July 24, 2022 History and physical exam performed by me History notable for 66-year-old man with significant recent medical history including NSTEMI, acute respiratory failure, cardiogenic shock, EF of 25%, cardiac catheterization which showed severe multivessel disease with calcified and occluded left circumflex and was transferred to [place] where he required IABP that was later updated to Impella and then ultimately removed, status post multivessel PCI complicated by hemorrhagic shock and cardiogenic shock and found to have new onset A. fib at the time and started on amiodarone and Eliquis and ULTIMATELY discharged to [facility] on 07/02/2022, was recently hospitalized here and discharged on 07/15/2022, presents with worsening shortness of breath. History provided by patient and daughter was at bedside. Daughter noted that she has noticed some leg swelling on Monday 1 she had taken into his doctor and during the visit his Entresto was decreased due to lower blood pressure. Patient reported not feeling well and when daughter arrived noted him to be in respiratory distress with shortness of breath and called EMS. Was noted to be hypoxic in the 70s. Patient currently on BiPAP, tachypneic, basilar crackles, bilateral pitting edema up to the knees. Labs notable for leukocytosis, hemoglobin of 10.5, VBG pH of 7.23, repeat PCO2 of 83, bicarb of 33, magnesium of 1.6, total bilirubin of 1.4, troponin of 40.80, BNP of 2629. Chest x-ray noted cardiomegaly with pulmonary edema, small pleural effusion with mild bibasilar opacities Acute on chronic respiratory failure with hypoxia and hypercapnia. Acute chronic systolic heart failure Start lasix IV Monitor I/O On BIPAP Borderline hypotension Cards recommends admit to ICU Admit ICU. Club Attendant consult Trend tropjaiden Replete mag Audrey Considering recent treatment for pneumonia, continue antibiotic coverage for now Other plans as detailed by Nora Haas PA-C
[2022-07-24] MEDS: MAGNESIUM SULFATE / D5W 1 GM/100 ML BAG IV SCH ×2 (19:58→22:12)
[2022-07-24] MEDS: CEFEPIME 2,000 MG in SYRINGE 0 ML IV SCH (19:59)
[2022-07-24] MEDS: APIXABAN 5 MG TABLET PO SCH (21:09)
[2022-07-24] MEDS ORDERED: NOREPINEPHRINE/D5W 4 MG/250 ML IV ONE (23:34)
[2022-07-24] MEDS ORDERED: STAT IV Infusion **Titration per Protocol STA (23:34)
[2022-07-24] MEDS: NOREPINEPHRINE/D5W 4 MG/250 ML PLCT IV SCH (23:40)
[2022-07-25] MEDS: MAGNESIUM SULFATE / D5W 1 GM/100 ML BAG IV SCH ×2 (00:13→02:13)
[2022-07-25] MEDS: CEFEPIME 2,000 MG in SYRINGE 0 ML IV SCH ×3 (04:07→20:05)
[2022-07-25 05:27] LABS: Calcium 7.7 mg/dl (8.5-10.1); Magnesium 3.1 mg/dl (1.7-2.4); Potassium 3.8 mmol/L (3.5-5.1)
[2022-07-25 05:33] LABS: Creatinine Clr Calc Pharmacy 101.4 ml/min; Est GFR (Non-African American) 112.1 ml/min
[2022-07-25 05:50] LABS: Basophils # (auto) 0.01 K/uL (0-0.2); Basophils % (auto) 0.1 %; Hematocrit (blood only) 29.2 % (40.1-51.0); Hemoglobin 9.5 g/dl (14.0-18.0); Immature Granulocytes # (auto) 0.03 K/uL (0.00-0.02); Immature Granulocytes % (auto) 0.4 %; Lymphocytes # (auto) 0.53 K/uL (1.2-3.4); Lymphocytes % (auto) 6.9 %; Mean Corpuscular Hemoglobin 29.7 pg (25.0-34.0); Mean Corpuscular Hgb Conc 32.5 g/dL (32.0-36.0); Mean Corpuscular Volume 91.3 fL (80.0-100.0); Mean Platelet Volume 9.6 fL (9.4-12.4); Monocytes # (auto) 0.53 K/uL (0.24-0.82); Monocytes % (auto) 6.9 %; Neutrophils # (auto) 6.54 K/uL (1.4-6.5); Neutrophils % (auto) 85.7 %; Platelet Count 248 K/uL (130-400); RDW Coefficient of Variation 15.6 % (11.5-14.5); RDW Standard Deviation 51.6 fL (36.4-46.3); White Blood Count 7.64 K/ul (4.8-10.8)
[2022-07-25] MEDS: ICU Protocol for HYPERglycemia SCH ×4 (08:12→21:17)
--- NOTE | 2022-07-25 08:59 | Cardiology Consultation ---
Date of Consultation July 25, 2022 Assessment & Plan (1) Acute respiratory failure with hypoxia and hypercapnia: (2) Elevated troponin: (3) COPD (chronic obstructive pulmonary disease): (4) CHF (congestive heart failure): (5) CAD (coronary artery disease): (6) Heart failure with reduced ejection fraction: Plan The patient's last echocardiogram in early July indicated his left ventricular ejection fraction to be around 40% which was a marked improvement from the previous study which estimated to be 25%. I agree with holding his Entresto and other cardiac meds due to his low blood pressure. He is on Levophed for blood pressure and he is diuresed a great deal with marked improvement in his condition. I agree with the management thus far. 1 final note is that he was seen by palliative care with his last admission. History of Present Illness Attending Physician: Haylie Pompa MD History of Present Illness This is a 66-year-old male patient with a complex history. At the end of May he had a non-STEMI and underwent a cardiac catheterization that revealed severe three-vessel coronary artery disease. He was transferred furred to [facility] in cardiogenic shock with an intra-aortic balloon pump as well as an Impella device. During that hospital admission he underwent high risk intervention receiving stents within the left main trunk into the proximal left circumflex and proximal LAD. He was admitted here again at the end of June with progressive shortness of breath. He has COPD as well as an ischemic cardiomyopathy so it was a combination of heart failure and probable pneumonia although there was some suggestion that he may have a lung mass. The patient was eventually discharged and had been at home. He states he had progressive shortness of breath which brought him back to the emergency department where he has been admitted with respiratory failure. In the emergency department he did require BiPAP but is currently on nasal cannula. He was started on Levophed due to hypotension and given diuretics with a large diuresis. Overall he feels improved. Of note, I reviewed his chest x-ray it appears to me that this is pure heart failure. Allergies Allergy/AdvReac Type Severity Reaction Status Date / Time piperacillin [From Zosyn] Allergy Unknown ON Verified 07/08/22 02:26 [facility] tazobactam [From Zosyn] Allergy Unknown ON Verified 07/08/22 02:26 [facility] Home Medications Medication Instructions Recorded Confirmed Type albuterol sulfate 2.5 mg/3 mL 1.25 mg (1.5 mL) inhalation Q4H 07/15/22 07/24/22 Rx (0.083 %) solution for nebulization PRN bronchospasm #90 mL budesonide-formoterol HFA 80 1 inh inhalation BID #10.2 grams 07/15/22 07/24/22 Rx mcg-4.5 mcg/actuation aerosol inhaler (Symbicort) magnesium oxide 400 mg (241.3 mg 400 mg PO DAILY #30 tabs 07/15/22 07/24/22 Rx magnesium) tablet tiotropium bromide 18 mcg capsule 1 cap inhalation DAILY #30 07/15/22 07/24/22 Rx with inhalation device (Spiriva inhalations with HandiHaler) albuterol sulfate 90 mcg/actuation 2 puff inhalation Q4H PRN 07/18/22 07/24/22 Rx aerosol inhaler Shortness Of Breath Or Wheezing #8.5 grams amiodarone 200 mg tablet 200 mg PO DAILY 30 days #30 tabs 07/18/22 07/24/22 Rx apixaban 5 mg tablet (Eliquis) 5 mg PO BID #60 tabs 07/18/22 07/24/22 Rx atorvastatin 80 mg tablet 80 mg PO DAILY 30 days #30 tabs 07/18/22 07/24/22 Rx clopidogrel 75 mg tablet (Plavix) 75 mg PO DAILY 30 days #30 tabs 07/18/22 07/24/22 Rx empagliflozin 10 mg tablet 10 mg PO QAM #30 tabs 07/18/22 07/24/22 Rx (Jardiance) furosemide 20 mg tablet (Lasix) 20 mg PO QAM 30 days #30 tabs 07/18/22 07/24/22 Rx iron,carbonyl 65 mg-vitamin C 125 1 tab PO DAILY 07/24/22 07/24/22 History mg tablet,delayed release (Vitron-C) omeprazole 20 mg capsule,delayed 20 mg PO DAILY 07/24/22 07/24/22 History release potassium chloride 20 mEq 20 meq PO DAILY 07/24/22 07/24/22 History tablet,extended release(part/cryst) sacubitril 24 mg-valsartan 26 mg 0.5 tab PO BID 07/24/22 07/24/22 History tablet Patient History Medical History Advanced care planning/counseling discussion Alcohol use disorder CAD (coronary artery disease) Multivessel disease COPD (chronic obstructive pulmonary disease) Diabetes mellitus, type II Heart failure with reduced ejection fraction HTN (hypertension) Ischemic cardiomyopathy Lung nodule NSTEMI (non-ST elevation myocardial infarction) Palliative care encounter Paroxysmal atrial fibrillation Surgical History Hx of colonoscopy Family History Other Cancer Hypertension Social History Smoking Status: Former smoker Tobacco Type: Cigarettes Hx Alcohol Use: Yes Alcohol type: beer Alcohol type Comment: 5 beers nightly, last drink 05/30/22 Hx Substance Use: No Preferred Language: Cymraes Communication Ability: Effective Thermodynamicist Required: No Beliefs That Will Affect Care: Caodaism Current Living Situation: Family Other Information That Helps Us Care for You: No Feels Safe at Home: Yes Safety Concerns: Feels Safe At This Time Assistive Devices: Cane, Denture - Upper, Denture - Lower, Oxygen - Continuous and Walker Review of Systems Review of Systems: Review of Systems: See HPI for pertinent positives. All other 10 point review of systems are negative. Physical Exam Physical Exam: General: no acute distress and stated age Head: normocephalic, no masses, lesions, tenderness or abnormalities Eyes: conjunctiva are pink and non-injected, sclera clear Neck: supple, no adenopathy, no bruits, normal jugular venous pulse, no hepatojugular reflux Chest: normal shape and normal respiratory effort Lungs: clear to auscultation and percussion Cardiac Exam: - regular rate & rhythm, no murmurs gallops or rubs - normal S1, normal S2 Pulses: 2(+) throughout Abdomen: abdomen soft, non-tender, no abnormal masses and no hepatosplenomegaly Musculoskeletal: no gait disturbance, no joint inflammation, no deforming arthritis Extremities: no edema and no cyanosis Neuro: grossly normal exam Results & Data ([facility]) Vital Signs (Past 12 Hours) Vital Signs Temp Pulse Pulse Resp BP BP Pulse Ox 07/25/22 08:24 88/47 L 07/25/22 08:03 36.9 C 86 20 101/55 L 96 07/25/22 06:30 77 23 100 07/25/22 06:30 98/56 L 07/25/22 06:15 82 27 H 99 07/25/22 06:15 100/60 07/25/22 06:00 78 20 99 07/25/22 06:00 105/61 07/25/22 05:45 79 27 H 99 07/25/22 05:45 104/61 07/25/22 05:30 80 22 99 07/25/22 05:30 102/63 07/25/22 05:15 78 25 H 99 07/25/22 05:15 101/64 07/25/22 05:00 77 28 H 98 07/25/22 05:00 98/53 L 07/25/22 04:45 80 24 98 07/25/22 04:45 92/57 L 07/25/22 04:30 79 23 98 07/25/22 04:30 101/59 L 07/25/22 04:15 81 26 H 98 07/25/22 04:15 96/59 L 07/25/22 04:00 36.9 C 07/25/22 04:00 78 26 H 98 07/25/22 04:00 91/59 L 07/25/22 03:45 88 26 H 97 07/25/22 03:45 99/62 L 07/25/22 03:30 82 22 100 07/25/22 03:30 110/64 07/25/22 03:15 75 30 H 94 07/25/22 03:15 100/59 L 07/25/22 03:00 79 24 97 07/25/22 03:00 97/60 L 07/25/22 02:45 77 11 L 95 07/25/22 02:45 94/55 L 07/25/22 02:30 80 31 H 98 07/25/22 02:30 92/55 L 07/25/22 02:15 82 30 H 95 07/25/22 02:15 93/59 L 07/25/22 02:00 79 27 H 96 07/25/22 02:00 93/56 L 07/25/22 01:45 82 33 H 97 07/25/22 01:45 94/59 L 07/25/22 01:30 83 27 H 98 07/25/22 01:30 100/58 L 07/25/22 01:15 84 28 H 98 07/25/22 01:15 97/58 L 07/25/22 01:00 82 23 98 07/25/22 01:00 107/62 07/25/22 00:45 80 26 H 98 07/25/22 00:45 97/60 L 07/25/22 00:30 77 24 97 07/25/22 00:30 91/54 L 07/25/22 00:15 80 24 96 07/25/22 00:15 98/55 L 07/25/22 00:00 81 29 H 99 07/25/22 00:00 106/60 07/24/22 23:45 75 24 98 07/24/22 23:45 86/49 L 07/25/22 00:00 36.7 C 07/24/22 22:18 81 26 H 96 07/24/22 23:31 77 07/24/22 23:32 78 27 H 99 07/24/22 23:32 80/48 L 07/24/22 23:30 75 22 98 07/24/22 23:30 76/49 L 07/24/22 23:00 71 26 H 92 07/24/22 23:00 81/47 L 07/24/22 22:30 80 26 H 91 07/24/22 22:30 83/53 L 07/24/22 22:00 83 25 H 98 07/24/22 22:00 84/50 L 07/24/22 21:31 86 27 H 97 07/24/22 21:31 92/54 L 07/24/22 21:00 82 32 H 99 07/24/22 21:00 84/52 L O2 Del Method O2 Flow Rate FiO2 07/25/22 08:24 07/25/22 08:03 Nasal Cannula 4.0 07/25/22 06:30 07/25/22 06:30 07/25/22 06:15 07/25/22 06:15 07/25/22 06:00 07/25/22 06:00 07/25/22 05:45 07/25/22 05:45 07/25/22 05:30 07/25/22 05:30 07/25/22 05:15 07/25/22 05:15 07/25/22 05:00 07/25/22 05:00 07/25/22 04:45 07/25/22 04:45 07/25/22 04:30 07/25/22 04:30 07/25/22 04:15 07/25/22 04:15 07/25/22 04:00 07/25/22 04:00 07/25/22 04:00 07/25/22 03:45 07/25/22 03:45 07/25/22 03:30 07/25/22 03:30 07/25/22 03:15 07/25/22 03:15 07/25/22 03:00 07/25/22 03:00 07/25/22 02:45 07/25/22 02:45 07/25/22 02:30 07/25/22 02:30 07/25/22 02:15 07/25/22 02:15 07/25/22 02:00 07/25/22 02:00 07/25/22 01:45 07/25/22 01:45 07/25/22 01:30 07/25/22 01:30 07/25/22 01:15 07/25/22 01:15 07/25/22 01:00 07/25/22 01:00 07/25/22 00:45 07/25/22 00:45 07/25/22 00:30 07/25/22 00:30 07/25/22 00:15 07/25/22 00:15 07/25/22 00:00 07/25/22 00:00 07/24/22 23:45 07/24/22 23:45 07/25/22 00:00 07/24/22 22:18 30 07/24/22 23:31 07/24/22 23:32 07/24/22 23:32 07/24/22 23:30 07/24/22 23:30 07/24/22 23:00 07/24/22 23:00 07/24/22 22:30 07/24/22 22:30 07/24/22 22:00 07/24/22 22:00 07/24/22 21:31 Nasal Cannula 4 07/24/22 21:31 07/24/22 21:00 07/24/22 21:00 Laboratory Results Current Inpatient Medications Albuterol (Albuterol 0.083% Nebu Soln 3 Ml Vial) 1.25 mg INH Q4H PRN; Protocol PRN Reason: bronchospasm Stop: 08/23/22 18:17 Albuterol (Albuterol Hfa 8 Gm Inhaler) 2 puffs INH Q4H PRN PRN Reason: Shortness Of Breath Or Wheezing Stop: 08/23/22 18:17 Amiodarone HCl (Amiodarone 200 Mg Tab) 200 mg PO DAILY [facility] Stop: 08/24/22 08:59 Apixaban (Apixaban 5 Mg Tablet) 5 mg PO BID [facility] Stop: 08/23/22 20:59 Last Admin: 07/24/22 21:09 Dose: 5 mg Atorvastatin Calcium (Atorvastatin 40 Mg Tab) 80 mg PO DAILY [facility] Stop: 08/24/22 08:59 Clopidogrel Bisulfate (Clopidogrel Bisulfate 75 Mg Tab) 75 mg PO DAILY [facility] Stop: 08/24/22 08:59 Fluticasone/Vilanterol (Fluticasone/Vilanterol 100/25mcg 14 Puffs/Inhaler) 1 puffs INH DAILY [facility] Stop: 08/24/22 08:59 Cefepime HCl 2,000 mg/ Syringe 20 mls @ 5 mls/min IV Q8H [facility]; Protocol Stop: 07/26/22 19:59 Last Admin: 07/25/22 04:07 Dose: 5 mls/min Norepinephrine Bitartrate (Levophed/D5w) 4 mg in 250 mls @ 11.25 mls/hr IV .[id number] [facility]; Protocol Stop: 08/23/22 23:44 Last Titration: 07/25/22 08:24 Dose: 0.05 mcg/kg/min, 11.3 mls/hr Miscellaneous (Icu Protocol For Hyperglycemia) 1 each N/A ACHS [facility] Stop: 07/26/22 16:32 Last Admin: 07/25/22 08:12 Dose: Not Given Pantoprazole Sodium (Pantoprazole 40 Mg Tab) 40 mg PO DAILY [facility] Stop: 08/24/22 08:59 Umeclidinium Bryan (Umeclidinium Bryan 62.5mcg/Blister 7 Puffs/Inhaler) 1 puffs INH DAILY [facility] Stop: 08/24/22 08:59 Medications Administered Current Inpatient Medications Albuterol (Albuterol 0.083% Nebu Soln 3 Ml Vial) 1.25 mg INH Q4H PRN; Protocol PRN Reason: bronchospasm Stop: 08/23/22 18:17 Albuterol (Albuterol Hfa 8 Gm Inhaler) 2 puffs INH Q4H PRN PRN Reason: Shortness Of Breath Or Wheezing Stop: 08/23/22 18:17 Amiodarone HCl (Amiodarone 200 Mg Tab) 200 mg PO DAILY [facility] Stop: 08/24/22 08:59 Apixaban (Apixaban 5 Mg Tablet) 5 mg PO BID [facility] Stop: 08/23/22 20:59 Last Admin: 07/24/22 21:09 Dose: 5 mg Atorvastatin Calcium (Atorvastatin 40 Mg Tab) 80 mg PO DAILY [facility] Stop: 08/24/22 08:59 Clopidogrel Bisulfate (Clopidogrel Bisulfate 75 Mg Tab) 75 mg PO DAILY [facility] Stop: 08/24/22 08:59 Fluticasone/Vilanterol (Fluticasone/Vilanterol 100/25mcg 14 Puffs/Inhaler) 1 puffs INH DAILY [facility] Stop: 08/24/22 08:59 Cefepime HCl 2,000 mg/ Syringe 20 mls @ 5 mls/min IV Q8H [facility]; Protocol Stop: 07/26/22 19:59 Last Admin: 07/25/22 04:07 Dose: 5 mls/min Norepinephrine Bitartrate (Levophed/D5w) 4 mg in 250 mls @ 11.25 mls/hr IV .[id number] [facility]; Protocol Stop: 08/23/22 23:44 Last Titration: 07/25/22 08:24 Dose: 0.05 mcg/kg/min, 11.3 mls/hr Miscellaneous (Icu Protocol For Hyperglycemia) 1 each N/A ACHS [facility] Stop: 07/26/22 16:32 Last Admin: 07/25/22 08:12 Dose: Not Given Pantoprazole Sodium (Pantoprazole 40 Mg Tab) 40 mg PO DAILY [facility] Stop: 08/24/22 08:59 Umeclidinium Bryan (Umeclidinium Bryan 62.5mcg/Blister 7 Puffs/Inhaler) 1 puffs INH DAILY [facility] Stop: 08/24/22 08:59 (1) CHF (congestive heart failure) Heart failure chronicity: acute on chronic Heart failure type: systolic Qualified Code(s): I50.23 - Acute on chronic systolic (congestive) heart failure (2) COPD (chronic obstructive pulmonary disease) COPD type: COPD with acute lower respiratory infection Qualified Code(s): J44.0 - Chronic obstructive pulmonary disease with (acute) lower respiratory infection
--- NOTE | 2022-07-25 09:18 | Critical Care Progress Note ---
Date of Service July 25, 2022 Assessment & Plan (1) Acute respiratory failure with hypoxia and hypercapnia: Plan: Pt is a 66 yo male w/ PMH of multiple vessel CAD s/p stenting, COPD, DM, heart failure w/ reduced ejection fraction, and HTN presenting d/t increased SOB. Reason critically ill: hypotension requiring pressors Neuro: - CAM ICU: negative - pt alert and oriented; no concerns at this time Cardiac: - hx of afib; currently NSR, continue eliquis anticoagulation and amiodarone - hx of CAD s/p multiple stents; elevated troponin originally, downtrended - hx of chronic heart failure w/ reduced ejection fraction and diastolic dysfunction - acute CHF exacerbation; given 100 mg lasix total and diuresed about 4 L - echo showed septal, inferior fall, and lateral wall hypokinesis w/ EF 35-40%, moderate pulmonary HTN - hypotension; requiring 0.05 mcg/kg/min levophed, added midodrine 2.5 mg TID; goal systolic > 90 - wean levophed as able - continue to monitor I/O - cardio consulted Respiratory: - hx of COPD tx w/ symbicort, spiriva, and albuterol at home - pt recently treated for pneumonia (d/c 07/15/2022) w/ cefuroxime and doxy - CXR 07/24/2022 showed small pleural effusions w/ bibasilar opacities similar to previous CXR on 07/14/2022 - neg for flu, RSV, COVID - continue breo, incruse, and albuterol PRN - current O2 sat in 90s on home oxygen (2L at rest, 4L w/ activity) - continue empiric cefepime for pneumonia GI: - diet: low sodium, carb consistent, heart healthy Renal/electrolytes: - No significant electrolyte derangement - Replace electrolytes as needed : - No concerns at this time Endo: - hx of DM, takes jardiance 10 mg at home - recent A1c 07/08/2022= 5.3% - Follow ICU hyperglycemic protocols Heme: - chronic iron deficiency anemia, takes iron supplementation at home - Hgb drop from 10.5 to 9.5 today - continue to monitor Lines/IV access: peripheral IV DVT ppx: anticoagulated d/t afib; eliquis 5 mg BID Please refer to Dr. Arroyo's documentation for any further recommendations. (2) COPD (chronic obstructive pulmonary disease): (3) Elevated troponin: (4) Anemia: (5) Acute on chronic heart failure with reduced ejection fraction and diastolic dysfunction: Admission and Anticipated Discharge Date Admission Date: July 24, 2022 Supervising Physician Co-Signing Physician Notes Patient seen exam with resident physician. Agree with assessment and plan aside for any additions/exceptions noted: We are actively weaning off the patient's Levophed to maintain systolic blood pressures greater than 90. His repeat echocardiogram suggested reduced ejection fraction 35 to 40%. There is hypercapnic respiratory failure. Better today. Continue BiPAP as needed. Continue to maintain euvolemia with diuresis. Will defer further diuretic therapy to his primary team and cardiology. Awaiting cardiology input. We will start low-dose oral midodrine dose to 2.5 mg 3 times a day to help wean off pressors. Once he is off pressors, will transfer to PCU. CRITICAL CARE TIME - I have personally spent 39 minutes of critical care time in the direct management of this patient. This is a life/limb threatening event. This includes time spent evaluating patient, direct bedside care, chart review, placing orders, interpretation of diagnostic studies, discussion with consultants, patient, and family members, as well as other required patient management activities. This time is exclusive of all separately billable procedures, and teaching time and separate from and in addition to any other critical care service time. Subjective Pt is a 66 yo male w/ PMH of multiple vessel CAD s/p stenting, COPD, DM, heart f ailure w/ reduced ejection fraction, and HTN presenting d/t increased SOB. Pt seen at bedside this AM. He states his breathing is much improved and is at baseline. Overall, he feels well. He does endorse a cough where he produces white, thick mucous "like Danny's glue." Pt states he has been through a lot over the past month to month and half but is unsure of the details of everything. He denies chest pains, abdominal pains, and leg pains. Review of Systems Review of Systems: All systems reviewed & are unremarkable except as noted in HPI & below Physical Exam Constitutional: NAD. BPs soft. O2 sat in the 90s w/ NC at 2L. Neck: No thyromegaly. Trachea midline. Respiratory: CTA bilaterally. No rhonchi, wheezing, and crackles. Decreased breath sounds throughout. Non labored breathing. Cardiovascular: RRR. No murmur noted. 2+ bilateral pitting edema of feet and ankles. Gastrointestinal (Abdomen): normal bowel sounds, soft, nontender, no hepatosplenomegaly Psychiatric: Mood and affect congruent. Results & Data Results & Data ([facility]) Vital Signs (Past 12 Hours) Vital Signs Temp Pulse Pulse Resp BP BP Pulse Ox 07/25/22 09:09 79/48 L 07/25/22 08:00 07/25/22 08:24 88/47 L 07/25/22 08:03 36.9 C 86 20 101/55 L 96 07/25/22 06:30 77 23 100 07/25/22 06:30 98/56 L 07/25/22 06:15 82 27 H 99 07/25/22 06:15 100/60 07/25/22 06:00 78 20 99 07/25/22 06:00 105/61 07/25/22 05:45 79 27 H 99 07/25/22 05:45 104/61 07/25/22 05:30 80 22 99 07/25/22 05:30 102/63 07/25/22 05:15 78 25 H 99 07/25/22 05:15 101/64 07/25/22 05:00 77 28 H 98 07/25/22 05:00 98/53 L 07/25/22 04:45 80 24 98 07/25/22 04:45 92/57 L 07/25/22 04:30 79 23 98 07/25/22 04:30 101/59 L 07/25/22 04:15 81 26 H 98 07/25/22 04:15 96/59 L 07/25/22 04:00 36.9 C 07/25/22 04:00 78 26 H 98 07/25/22 04:00 91/59 L 07/25/22 03:45 88 26 H 97 07/25/22 03:45 99/62 L 07/25/22 03:30 82 22 100 07/25/22 03:30 110/64 07/25/22 03:15 75 30 H 94 07/25/22 03:15 100/59 L 07/25/22 03:00 79 24 97 07/25/22 03:00 97/60 L 07/25/22 02:45 77 11 L 95 07/25/22 02:45 94/55 L 07/25/22 02:30 80 31 H 98 07/25/22 02:30 92/55 L 07/25/22 02:15 82 30 H 95 07/25/22 02:15 93/59 L 07/25/22 02:00 79 27 H 96 07/25/22 02:00 93/56 L 07/25/22 01:45 82 33 H 97 07/25/22 01:45 94/59 L 07/25/22 01:30 83 27 H 98 07/25/22 01:30 100/58 L 07/25/22 01:15 84 28 H 98 07/25/22 01:15 97/58 L 07/25/22 01:00 82 23 98 07/25/22 01:00 107/62 07/25/22 00:45 80 26 H 98 07/25/22 00:45 97/60 L 07/25/22 00:30 77 24 97 07/25/22 00:30 91/54 L 07/25/22 00:15 80 24 96 07/25/22 00:15 98/55 L 07/25/22 00:00 81 29 H 99 07/25/22 00:00 106/60 07/24/22 23:45 75 24 98 07/24/22 23:45 86/49 L 07/25/22 00:00 36.7 C 07/24/22 22:18 81 26 H 96 07/24/22 23:31 77 07/24/22 23:32 78 27 H 99 07/24/22 23:32 80/48 L 07/24/22 23:30 75 22 98 07/24/22 23:30 76/49 L 07/24/22 23:00 71 26 H 92 07/24/22 23:00 81/47 L 07/24/22 22:30 80 26 H 91 07/24/22 22:30 83/53 L 07/24/22 22:00 83 25 H 98 07/24/22 22:00 84/50 L 07/24/22 21:31 86 27 H 97 07/24/22 21:31 92/54 L O2 Del Method O2 Flow Rate FiO2 07/25/22 09:09 07/25/22 08:00 Nasal Cannula 4 07/25/22 08:24 07/25/22 08:03 Nasal Cannula 4.0 07/25/22 06:30 07/25/22 06:30 07/25/22 06:15 07/25/22 06:15 07/25/22 06:00 07/25/22 06:00 07/25/22 05:45 07/25/22 05:45 07/25/22 05:30 07/25/22 05:30 07/25/22 05:15 07/25/22 05:15 07/25/22 05:00 07/25/22 05:00 07/25/22 04:45 07/25/22 04:45 07/25/22 04:30 07/25/22 04:30 07/25/22 04:15 07/25/22 04:15 07/25/22 04:00 07/25/22 04:00 07/25/22 04:00 07/25/22 03:45 07/25/22 03:45 07/25/22 03:30 07/25/22 03:30 07/25/22 03:15 07/25/22 03:15 07/25/22 03:00 07/25/22 03:00 07/25/22 02:45 07/25/22 02:45 07/25/22 02:30 07/25/22 02:30 07/25/22 02:15 07/25/22 02:15 07/25/22 02:00 07/25/22 02:00 07/25/22 01:45 07/25/22 01:45 07/25/22 01:30 07/25/22 01:30 07/25/22 01:15 07/25/22 01:15 07/25/22 01:00 07/25/22 01:00 07/25/22 00:45 07/25/22 00:45 07/25/22 00:30 07/25/22 00:30 07/25/22 00:15 07/25/22 00:15 07/25/22 00:00 07/25/22 00:00 07/24/22 23:45 07/24/22 23:45 07/25/22 00:00 07/24/22 22:18 30 07/24/22 23:31 07/24/22 23:32 07/24/22 23:32 07/24/22 23:30 07/24/22 23:30 07/24/22 23:00 07/24/22 23:00 07/24/22 22:30 07/24/22 22:30 07/24/22 22:00 07/24/22 22:00 07/24/22 21:31 Nasal Cannula 4 07/24/22 21:31 Resident Activity Tracking Resident Involvement: Resident Care Provided Care Provided: Adult Hospital Medicine (1) COPD (chronic obstructive pulmonary disease) COPD type: COPD with acute lower respiratory infection Qualified Code(s): J44.0 - Chronic obstructive pulmonary disease with (acute) lower respiratory infection
[2022-07-25] MEDS: ATORVASTATIN 40 MG TAB PO SCH (09:46)
[2022-07-25] MEDS: CLOPIDOGREL BISULFATE 75 MG TAB PO SCH (09:46)
[2022-07-25] MEDS: FLUTICASONE/VILANTEROL 100/25MCG 14 PUFFS/INHALER INH SCH (09:46)
[2022-07-25] MEDS: PANTOprazole 40 MG TAB PO SCH (09:46)
[2022-07-25] MEDS: UMECLIDINIUM BROMIDE 62.5MCG/BLISTER 7 PUFFS/INHALER INH SCH (09:46)
[2022-07-25] MEDS: APIXABAN 5 MG TABLET PO SCH ×2 (09:46→20:09)
[2022-07-25] MEDS: AMIODARONE 200 MG TAB PO SCH (09:46)
--- NOTE | 2022-07-25 09:50 | Electrocardiogram Report ---
Test Reason : Blood Pressure : / mmHG Vent. Rate : 098 BPM Atrial Rate : 098 BPM P-R Int : 174 ms QRS Dur : 094 ms QT Int : 390 ms P-R-T Axes : 063 109 107 degrees QTc Int : 497 ms Poor data quality, interpretation may be adversely affected Normal sinus rhythm Rightward axis Nonspecific ST and T wave abnormality Abnormal ECG When compared with ECG of 11-JUL-2022 04:35, Nonspecific T wave abnormality now evident in Lateral leads Confirmed by Zen Ferraro ([id number]) on 07/25/2022 9:50:00 AM Referred By: Confirmed By:Alfred Ferraro
--- NOTE | 2022-07-25 11:08 | Hospitalist Progress Note ---
Date of Service July 25, 2022 Assessment & Plan (1) Respiratory failure with hypoxia and hypercapnia: (2) Acute on chronic heart failure with reduced ejection fraction and diastolic dysfunction: Plan: 66-year-old male with PMH alcohol abuse, tobacco abuse, NSTEMI, history of cardiogenic shock, ischemic cardiomyopathy, atrial fibrillation anticoagulated on Eliquis, chest wall hematoma and others listed below presented to ER with complaint of shortness of breath. Reported that patient was noted to be hypoxic in the 70s on his home 4 L oxygen upon EMS arrival. EMS reported patient was also agitated when tried to place him on non-rebreather and reported to give ativan. Recently history cardiogenic shock, ischemic cardiomyopathy required intra- aortic balloon pump which was later upgraded to Impella, also required intubation for pulmonary edema at [facility]. Impella was removed. 05/31/2022 echo: EF: 20-25%, posterior and inferior wall akinetic, severe global hypokinesis, moderate MR, mild TR 07/08/2022 echo: EF: 45-50%, grade 2 diastolic dysfunction, moderate MR Upon arrival in ER patient was noted to be tachypneic and placed on BiPAP. WBC: 13, lactate: 1.9, procalcitonin: 0.06. BNP 2629, negative SARS-CoV-2, influenza, RSV PCR. EKG without acute ST changes CXR: Cardiomegaly with pulmonary edema. Small pleural effusions with mild bibasilar opacities appears similar to the 07/14/2022 exam. Initial high-sensitivity troponin: 40.8. Trended down to 29 Got IV lasix Diuresed well so far. Net -3L since admission Continue management in ICU Will follow up cards recommendation Continue to hold Entresto Monitor I/O Echo today noted EF of 35-40%, septal akinesis, inf wall akinesis, mod to severe lateral wall hypokinesis, mild to mod reduced RVSF, mild dil LA/RA, mod to severe MR, mild to mod TR CXR showed small pleural effusion w/bibasilar opacities similar to previous on 07/14/22 Flu, RSV, COVID are negative Continue cefepime [employer] on board as well Defer management of pressors (levophed) to ICU team (3) Hypomagnesemia: Plan: On admission, Magnesium: 1.6 Repleted Mg is 3.1 this AM (4) CAD (coronary artery disease): Plan: 05/31/2022: NSTEMI, cardiogenic shock. S/p cardiac cath which showed severe multivessel CAD and was transferred to [facility]. Had multivessel PCI at [facility]. On atorvastatin, Plavix (5) Paroxysmal atrial fibrillation: Plan: History onset atrial fibrillation during hospitalization at [facility] On amiodarone, Eliquis (6) Diabetes mellitus, type II: Plan: A1c: 5.3 on 07/08/2022 Hold Jardiance NovoLog sliding scale per protocol (7) COPD (chronic obstructive pulmonary disease): Plan: Continue home inhalers (8) Anemia: Plan: Hgb 9.5 today (baseline) DVT Prophylaxis On Eliquis Disposition ICU Full Code Follows with Dr Andrew for routine care Admission and Anticipated Discharge Date Admission Date: July 24, 2022 Subjective Patient seen and examined Reports feeling better Reports cough States shortness of breath is improved Denied any chest pain, dizziness, headache Denied any fever, chills, nausea, vomiting, abd pain, diarrhea Currently in ICU on low dose levophed to maintain BP Net -3L since admission. Currently on nasal cannula Physical Exam Constitutional: + well hydrated; no acute distress Eyes: PERRL, conjunctivae normal, anicteric sclerae ENMT: external ear and nose normal, oropharynx normal Respiratory: normal respiratory effort; no respiratory distress No basilar crackles today Cardiovascular: Rate/Rhythm: regular rate and regular rhythm S1 S2 Gastrointestinal (Abdomen): normal bowel sounds, soft, nontender, no hepatosplenomegaly Musculoskeletal: Pedal edema bilaterally Neurologic: PERRL, EOMI, accommodation nl, no face palsy, no dysarthria Psychiatric: A+Ox3, euthymic affect Results & Data Results & Data ([facility]) Vital Signs (Past 12 Hours) Vital Signs Temp Pulse Pulse Resp BP BP Pulse Ox 07/25/22 08:00 77 07/25/22 10:00 80 27 H 103/61 94 07/25/22 09:09 79/48 L 07/25/22 08:00 07/25/22 08:24 88/47 L 07/25/22 08:03 36.9 C 86 20 101/55 L 96 07/25/22 06:30 77 23 100 07/25/22 06:30 98/56 L 01/23/23 06:15 82 27 H 99 07/25/22 06:15 100/60 07/25/22 06:00 78 20 99 07/25/22 06:00 105/61 07/25/22 05:45 79 27 H 99 07/25/22 05:45 104/61 07/25/22 05:30 80 22 99 07/25/22 05:30 102/63 07/25/22 05:15 78 25 H 99 07/25/22 05:15 101/64 07/25/22 05:00 77 28 H 98 07/25/22 05:00 98/53 L 07/25/22 04:45 80 24 98 07/25/22 04:45 92/57 L 07/25/22 04:30 79 23 98 07/25/22 04:30 101/59 L 07/25/22 04:15 81 26 H 98 07/25/22 04:15 96/59 L 07/25/22 04:00 36.9 C 07/25/22 04:00 78 26 H 98 07/25/22 04:00 91/59 L 07/25/22 03:45 88 26 H 97 07/25/22 03:45 99/62 L 07/25/22 03:30 82 22 100 07/25/22 03:30 110/64 07/25/22 03:15 75 30 H 94 07/25/22 03:15 100/59 L 07/25/22 03:00 79 24 97 07/25/22 03:00 97/60 L 07/25/22 02:45 77 11 L 95 07/25/22 02:45 94/55 L 07/25/22 02:30 80 31 H 98 07/25/22 02:30 92/55 L 07/25/22 02:15 82 30 H 95 07/25/22 02:15 93/59 L 07/25/22 02:00 79 27 H 96 07/25/22 02:00 93/56 L 07/25/22 01:45 82 33 H 97 07/25/22 01:45 94/59 L 07/25/22 01:30 83 27 H 98 07/25/22 01:30 100/58 L 07/25/22 01:15 84 28 H 98 07/25/22 01:15 97/58 L 07/25/22 01:00 82 23 98 07/25/22 01:00 107/62 07/25/22 00:45 80 26 H 98 07/25/22 00:45 97/60 L 07/25/22 00:30 77 24 97 07/25/22 00:30 91/54 L 07/25/22 00:15 80 24 96 07/25/22 00:15 98/55 L 07/25/22 00:00 81 29 H 99 07/25/22 00:00 106/60 07/24/22 23:45 75 24 98 07/24/22 23:45 86/49 L 07/25/22 00:00 36.7 C 07/24/22 23:31 77 07/24/22 23:32 78 27 H 99 07/24/22 23:32 80/48 L 07/24/22 23:30 75 22 98 07/24/22 23:30 76/49 L O2 Del Method O2 Flow Rate 07/25/22 08:00 07/25/22 10:00 Nasal Cannula 2 07/25/22 09:09 07/25/22 08:00 Nasal Cannula 4 07/25/22 08:24 07/25/22 08:03 Nasal Cannula 4.0 07/25/22 06:30 07/25/22 06:30 07/25/22 06:15 07/25/22 06:15 07/25/22 06:00 07/25/22 06:00 07/25/22 05:45 07/25/22 05:45 07/25/22 05:30 07/25/22 05:30 07/25/22 05:15 07/25/22 05:15 07/25/22 05:00 07/25/22 05:00 07/25/22 04:45 07/25/22 04:45 07/25/22 04:30 07/25/22 04:30 07/25/22 04:15 07/25/22 04:15 07/25/22 04:00 07/25/22 04:00 07/25/22 04:00 07/25/22 03:45 07/25/22 03:45 07/25/22 03:30 07/25/22 03:30 07/25/22 03:15 07/25/22 03:15 07/25/22 03:00 07/25/22 03:00 07/25/22 02:45 07/25/22 02:45 07/25/22 02:30 07/25/22 02:30 07/25/22 02:15 07/25/22 02:15 07/25/22 02:00 07/25/22 02:00 07/25/22 01:45 07/25/22 01:45 07/25/22 01:30 07/25/22 01:30 07/25/22 01:15 07/25/22 01:15 07/25/22 01:00 07/25/22 01:00 07/25/22 00:45 07/25/22 00:45 07/25/22 00:30 07/25/22 00:30 07/25/22 00:15 07/25/22 00:15 07/25/22 00:00 07/25/22 00:00 07/24/22 23:45 07/24/22 23:45 07/25/22 00:00 07/24/22 23:31 07/24/22 23:32 07/24/22 23:32 07/24/22 23:30 07/24/22 23:30 Laboratory Results Abnormal lab results 07/24/22 07/24/22 07/24/22 Range/Units 11:50 11:50 13:35 RBC (4.63-6.08) M/uL Hgb (14.0-18.0) g/dl Hct (40.1-51.0) % RDW Std Deviation (36.4-46.3) fL RDW Coeff of Gordon (11.5-14.5) % Neut # (Auto) (1.4-6.5) K/uL Lymph # (Auto) (1.2-3.4) K/uL Immature Gran # (Auto) (0.00-0.02) K/uL Sodium 134 L (136-145) mmol/L Chloride 94 L (98-107) mmol/L Carbon Dioxide 33 H (21-32) mmol/L Creatinine (0.6-1.4) mg/dl BUN/Creatinine Ratio 26.2 H (10-20) Glucose 138 H (70-99(Fasting)) mg/dl POC Glucose (70-99) mg/dl Calcium 8.4 L (8.5-10.1) mg/dl Magnesium 1.6 L (1.7-2.4) mg/dl Total Bilirubin 1.4 H (0.2-1.0) mg/dl Direct Bilirubin 0.4 H (0-0.2) mg/dl Troponin I High Sens 40.8 H (0-20) pg/ml B-Natriuretic Peptide 2629 H (0-100) pg/ml Urine Protein Trace H (Negative) Urine Glucose (UA) 3+ H (Negative) U Epithel Cells (Auto) 5-10 H (0-5) /lpf 07/24/22 07/24/22 07/24/22 Range/Units 17:44 17:48 22:51 RBC (4.63-6.08) M/uL Hgb (14.0-18.0) g/dl Hct (40.1-51.0) % RDW Std Deviation (36.4-46.3) fL RDW Coeff of Gordon (11.5-14.5) % Neut # (Auto) (1.4-6.5) K/uL Lymph # (Auto) (1.2-3.4) K/uL Immature Gran # (Auto) (0.00-0.02) K/uL Sodium (136-145) mmol/L Chloride (98-107) mmol/L Carbon Dioxide (21-32) mmol/L Creatinine (0.6-1.4) mg/dl BUN/Creatinine Ratio (10-20) Glucose (70-99(Fasting)) mg/dl POC Glucose 108 H (70-99) mg/dl Calcium (8.5-10.1) mg/dl Magnesium (1.7-2.4) mg/dl Total Bilirubin (0.2-1.0) mg/dl Direct Bilirubin (0-0.2) mg/dl Troponin I High Sens 40.2 H 29.5 H D (0-20) pg/ml B-Natriuretic Peptide (0-100) pg/ml Urine Protein (Negative) Urine Glucose (UA) (Negative) U Epithel Cells (Auto) (0-5) /lpf 07/25/22 07/25/22 07/25/22 Range/Units 00:01 04:49 04:49 RBC 3.20 L (4.63-6.08) M/uL Hgb 9.5 L (14.0-18.0) g/dl Hct 29.2 L (40.1-51.0) % RDW Std Deviation 51.6 H (36.4-46.3) fL RDW Coeff of Gordon 15.6 H (11.5-14.5) % Neut # (Auto) 6.54 H (1.4-6.5) K/uL Lymph # (Auto) 0.53 L (1.2-3.4) K/uL Immature Gran # (Auto) 0.03 H (0.00-0.02) K/uL Sodium 134 L (136-145) mmol/L Chloride 94 L (98-107) mmol/L Carbon Dioxide 35 H (21-32) mmol/L Creatinine 0.50 L (0.6-1.4) mg/dl BUN/Creatinine Ratio 32.0 H (10-20) Glucose 115 H (70-99(Fasting)) mg/dl POC Glucose 144 H (70-99) mg/dl Calcium 7.7 L (8.5-10.1) mg/dl Magnesium 3.1 H (1.7-2.4) mg/dl Total Bilirubin (0.2-1.0) mg/dl Direct Bilirubin (0-0.2) mg/dl Troponin I High Sens (0-20) pg/ml B-Natriuretic Peptide (0-100) pg/ml Urine Protein (Negative) Urine Glucose (UA) (Negative) U Epithel Cells (Auto) (0-5) /lpf 07/25/22 07/25/22 Range/Units 07:52 11:18 RBC (4.63-6.08) M/uL Hgb (14.0-18.0) g/dl Hct (40.1-51.0) % RDW Std Deviation (36.4-46.3) fL RDW Coeff of Gordon (11.5-14.5) % Neut # (Auto) (1.4-6.5) K/uL Lymph # (Auto) (1.2-3.4) K/uL Immature Gran # (Auto) (0.00-0.02) K/uL Sodium (136-145) mmol/L Chloride (98-107) mmol/L Carbon Dioxide (21-32) mmol/L Creatinine (0.6-1.4) mg/dl BUN/Creatinine Ratio (10-20) Glucose (70-99(Fasting)) mg/dl POC Glucose 102 H 109 H (70-99) mg/dl Calcium (8.5-10.1) mg/dl Magnesium (1.7-2.4) mg/dl Total Bilirubin (0.2-1.0) mg/dl Direct Bilirubin (0-0.2) mg/dl Troponin I High Sens (0-20) pg/ml B-Natriuretic Peptide (0-100) pg/ml Urine Protein (Negative) Urine Glucose (UA) (Negative) U Epithel Cells (Auto) (0-5) /lpf (1) Respiratory failure with hypoxia and hypercapnia Chronicity: acute on chronic Qualified Code(s): J96.21 - Acute and chronic respiratory failure with hypoxia; J96.22 - Acute and chronic respiratory failure with hypercapnia; J96.22 - Acute and chronic respiratory failure with hypercapnia
[2022-07-25] MEDS: MIDODRINE HCL 2.5 MG TAB PO SCH ×2 (11:50→16:45)
[2022-07-25] MEDS ORDERED: MIDODRINE HCL 2.5 MG TAB PO SCH (12:00)
--- NOTE | 2022-07-25 13:20 | Billing Data ---
Date of Service July 25, 2022 Coding Level of Care Code Critical Care 1st 30-74 mins Time Spent (min) 39
[2022-07-25] MEDS ORDERED: FUROSEMIDE 40 MG/4 ML VIAL IV ONE ×3 (16:37→16:47)
[2022-07-25] MEDS ORDERED: POTASSIUM CHLORIDE CRTAB 20 MEQ TABCR PO STA (16:47)
[2022-07-25] MEDS: NOREPINEPHRINE/D5W 4 MG/250 ML PLCT IV SCH (22:36)
[2022-07-26] MEDS: ALBUTEROL 0.083% NEBU SOLN 3 ML VIAL INH PRN (01:52)
[2022-07-26] MEDS: CEFEPIME 2,000 MG in SYRINGE 0 ML IV SCH ×2 (02:47→11:22)
[2022-07-26 04:55] LABS: Hematocrit (blood only) 29.4 % (40.1-51.0); Hemoglobin 9.3 g/dl (14.0-18.0); Mean Corpuscular Hemoglobin 29.8 pg (25.0-34.0); Mean Corpuscular Hgb Conc 31.6 g/dL (32.0-36.0); Mean Corpuscular Volume 94.2 fL (80.0-100.0); Mean Platelet Volume 9.6 fL (9.4-12.4); Platelet Count 240 K/uL (130-400); RDW Coefficient of Variation 15.8 % (11.5-14.5); RDW Standard Deviation 54.8 fL (36.4-46.3); Red Blood Count 3.12 M/uL (4.63-6.08); White Blood Count 15.44 K/ul (4.8-10.8)
[2022-07-26 05:25] LABS: Albumin Globulin Ratio 1.5 (0.9-2); Albumin Level 3.4 gm/dl (3.4-5.0); BUN Creatinine Ratio 39.7 (10-20); Bilirubin,Total 0.7 mg/dl (0.2-1.0); Creatinine Clr Calc Pharmacy 80.5 ml/min; Est GFR (African American) 118.2 ml/min; Globulin 2.2 gm/dl (2.5-4.0); Magnesium 2.3 mg/dl (1.7-2.4); Phosphorus 1.9 mg/dl (2.5-4.9); Total Protein 5.6 gm/dl (6.0-8.3)
[2022-07-26] MEDS: ICU ELECTROLYTE REPLACEMENT PROTOCOL SCH ×2 (05:53→20:13)
[2022-07-26] MEDS ORDERED: SODIUM PHOSPHATE 3 MMOL/1 ML INFUSION IV STA (05:55)
[2022-07-26] MEDS ORDERED: SODIUM PHOSPHATE 21 MMOL in SODIUM CHLORIDE 0.9% 500 ML IV ONE (06:15)
[2022-07-26] MEDS: ICU Protocol for HYPERglycemia SCH ×3 (08:12→17:06)
[2022-07-26] MEDS: MIDODRINE HCL 2.5 MG TAB PO SCH (08:17)
[2022-07-26] MEDS: AMIODARONE 200 MG TAB PO SCH (08:18)
[2022-07-26] MEDS: ATORVASTATIN 40 MG TAB PO SCH (08:18)
[2022-07-26] MEDS: APIXABAN 5 MG TABLET PO SCH (08:18)
[2022-07-26] MEDS: CLOPIDOGREL BISULFATE 75 MG TAB PO SCH (08:19)
[2022-07-26] MEDS: PANTOprazole 40 MG TAB PO SCH (08:20)
[2022-07-26] MEDS: UMECLIDINIUM BROMIDE 62.5MCG/BLISTER 7 PUFFS/INHALER INH SCH (08:20)
[2022-07-26] MEDS: FLUTICASONE/VILANTEROL 100/25MCG 14 PUFFS/INHALER INH SCH (08:20)
--- NOTE | 2022-07-26 09:18 | XRay Report ---
XR chest 1V portable HISTORY: Increase shortness of breath. COMPARISON: Chest 07/24/2022. FINDINGS: No pneumothorax. The heart remains mildly enlarged. There is pulmonary edema and small bila teral pleural effusions which is similar to the prior study. Bibasilar densities also persist and may represent compressive atelectasis from the pleural effusions. Surgical clips seen within the right u pper chest. Calcified thoracic aorta again noted. IMPRESSION: No significant change in the pulmonary edema and small bilateral pleural effusions. ACT 112: Negative or not required by law. Electronically signed by: Burak Santacruz M.D. 07/26/2022 9:17 AM
[2022-07-26] MEDS ORDERED: STAT IV Infusion **Titration per Protocol STA (09:24)
[2022-07-26] MEDS: DOBUTamine / D5W 500 MG/250 ML BAG IV SCH (09:45)
--- NOTE | 2022-07-26 09:45 | Palliative Care Consultation ---
Date of Consultation July 26, 2022 Assessment & Plan (1) Palliative care encounter: Met with pt/family. Provided overview of Palliative Medicine, a subspecialty that provides specialized medical care for people living with a serious illness by offering a focus on quality of life. Palliative Medicine is often conflated with hospice: I advised patient/family that Palliative and hospice can be partners but we are not the same. It is important to understand the difference so that we may be informed, and not afraid. Palliative Medicine works to improve QOL through reduction of symptom burden/more control over their illness, for both the patient and family. Palliative medicine clinicians are board certified, specially-trained and another member of the patient's medical care team. We often provide an extra layer of support because our care is based on the needs of the patient, not the prognosis; as such, it's appropriate at any age/advancing stage of a serious illness and can be provided along with curative treatment. Palliative Medicine clinicians are also trained in advanced communication methodologies, to facilitate complex discussions about advanced illness planning, which are needed to help assure that the treatment choices match the patient's goals, aka delivering Goal Concordant care. Finally, we discussed that hospice is a visiting nurse service that focuses on care delivered at the very end of life for patients with terminal illness, with life expectancy less than 6 month. (2) Acute on chronic heart failure with reduced ejection fraction and diastolic dysfunction: Ed has been started on low dose dobutamine; he has, in my opinion, an end stage cardiomyopathy given severe mitral regurgitation, systolic CHFf and secondary PH. His evolving metab alkalosis suggests he will be refractory to diureses soon. In past discussions, Ed has not been willing to explore the discussion around advanced illness, noting that he may not have a great heart but it has been "fixed" through recent interventions and he perceives that he his cardiology prognosis is very good. he has not been advised otherwise. (3) Advanced care planning/counseling discussion: 20min [id number] discussion with pt. He does not feel he has an unfixable/in curable situation. He feels he can be improved and "fixed up." It is unclear what he views as better/fixed because he will not answer this question when asked, other than to remark "I am tough, I got better last time, they fixed my heart." I suggest a multidisciplinary (MDT) patient and family meeting to review prognosis and offer best recommendations with ICU, Cardiology, hospital and palliative medicine teams. He needs to hear about his specific issues/where they stand and their prognosis from the relevant specialists. At this time, Ed is receiving all best supportive care in spite of which he continues to decline. This pattern of continued decline in the setting of escalated interventions in the greater context of advancing, incurable and irreversible cardiac disease indicates he is transitioning to a terminal stage and has begun, in my clinical judgement, the transition from a process of living to a process of dying. he has been clear and consistent that he wants to be home, values time with family. If he is placed on life support, he will not successfully liberate, nor will those interventions recover, cure or reverse his existing illness or improve his baseline PS to better than it was prior to admission. I will defer the arranging of this MDT team based family meeting to the primary team/care mgt. I will do my best to attend at the scheduled time. (4) Acute respiratory failure with hypoxia and hypercapnia: (5) Alcohol use disorder: Plan MDT family meeting recommended. I have updated CCM and primary team. Patient continues to enforce belief he is "better" and does not have any serious/terminal illness. He is reluctant to engage in any meaningful discussions re code status, GOC and ACP because, he states, "I'm tough and they said my heart is better when they fixed it there the last time." Diana Collins DNP Clinical Director, Palliative Medicine History of Present Illness Reason for Consultation: " On 07/26/22 @ 09:30 Sid Arroyo Wrote To Diana Collins decompensated systolic chf refractory to therapy" Attending Physician: Haylie Pompa MD History of Present Illness Mr Clement is known to me from prior admission, I last saw him 07/11/2022. LAst admission 07/08/22 - 07/15/22 for acute resp faulure, [id number] HF, PNA. From this admission he was dc tyesha home on supplemental O2 (2lpm rest, 4lpm exertion); at the time of my 07/11/22 consult, my note included the following details:"66yo male admitted 07/08/22 for SOB. Last admitted 05/31/22 with resp failure, NSTEMI and cardiogenic shock, CHF w/EF ~ 25% and AECOPD. He has been found to have Acute respiratory failure, most likely secondary to upbfy-kh-rvrybnk systolic CHF per admitting note:"Urgent cardiac catheterization was done, which revealed severe multivessel coronary artery disease with severely calcified and occluded left circumflex at [place] and was transferred to [place]. It looks like he stayed in [place] for whole June and in [place] he was placed on intraaortic balloon pump. IABP was later upgraded to Impella( IABP seemed to have broken), underwent multivessel PCI, complicated by hemorrhagic shock and cardiogenic shock, intubated for pulmonary edema, looks like intubated for many days. Diagnosed and treated empirically for pneumonia. Ultimately extubated and Impella removed. He was found to have new onset AFib during the course and currently on amiodarone and Eliquis, and he was discharged to [facility] on 07/02/2022 and now he comes back with shortness of breath. The patient is ambulating sometimes with cane and sometime without cane." PMH:alcohol abuse, +tobacco abuse, s/p NSTEMI, CHF/HFrEF, HTN, A FIb, multivessel CAD, GERD, DVT, shock liver, chest wall hematoma." This admission, chart review indicates pt dtr went to see him and found him SOB, diaphoretic and [facility]. He was found to be hypoxic in the 70s on 4lpm, and getting progressively agitated. he was admitted with chronically recurrent respiratory failure with hypoxia & hypercapnia and recurrent acute on chronic heart failure with reduced ejection fraction and diastolic dysfunction. Data in ED reviewed: WBC 13, lactate 1.9, PCT 0.06. BNP 2629, Covid/influenza/RSV negative. His EKG was without acute ST changes and his CXR revealed cardiomegaly with pulmonary edema and small pleural effusions with mild bibasilar opacities which appears similar to the 07/14/2022 exam. Allergies Allergy/AdvReac Type Severity Reaction Status Date / Time piperacillin [From Zosyn] Allergy Unknown ON Verified 07/08/22 02:26 [facility] tazobactam [From Zosyn] Allergy Unknown ON Verified 07/08/22 02:26 [facility] Home Medications Medication Instructions Recorded Confirmed Type albuterol sulfate 2.5 mg/3 mL 1.25 mg (1.5 mL) inhalation Q4H 07/15/22 07/24/22 Rx (0.083 %) solution for nebulization PRN bronchospasm #90 mL budesonide-formoterol HFA 80 1 inh inhalation BID #10.2 grams 07/15/22 07/24/22 Rx mcg-4.5 mcg/actuation aerosol inhaler (Symbicort) magnesium oxide 400 mg (241.3 mg 400 mg PO DAILY #30 tabs 07/15/22 07/24/22 Rx magnesium) tablet tiotropium bromide 18 mcg capsule 1 cap inhalation DAILY #30 07/15/22 07/24/22 Rx with inhalation device (Spiriva inhalations with HandiHaler) albuterol sulfate 90 mcg/actuation 2 puff inhalation Q4H PRN 07/18/22 07/24/22 Rx aerosol inhaler Shortness Of Breath Or Wheezing #8.5 grams amiodarone 200 mg tablet 200 mg PO DAILY 30 days #30 tabs 07/18/22 07/24/22 Rx apixaban 5 mg tablet (Eliquis) 5 mg PO BID #60 tabs 07/18/22 07/24/22 Rx atorvastatin 80 mg tablet 80 mg PO DAILY 30 days #30 tabs 07/18/22 07/24/22 Rx clopidogrel 75 mg tablet (Plavix) 75 mg PO DAILY 30 days #30 tabs 07/18/22 07/24/22 Rx empagliflozin 10 mg tablet 10 mg PO QAM #30 tabs 07/18/22 07/24/22 Rx (Jardiance) furosemide 20 mg tablet (Lasix) 20 mg PO QAM 30 days #30 tabs 07/18/22 07/24/22 Rx iron,carbonyl 65 mg-vitamin C 125 1 tab PO DAILY 07/24/22 07/24/22 History mg tablet,delayed release (Vitron-C) omeprazole 20 mg capsule,delayed 20 mg PO DAILY 07/24/22 07/24/22 History release potassium chloride 20 mEq 20 meq PO DAILY 07/24/22 07/24/22 History tablet,extended release(part/cryst) sacubitril 24 mg-valsartan 26 mg 0.5 tab PO BID 07/24/22 07/24/22 History tablet Patient History Medical History Advanced care planning/counseling discussion Alcohol use disorder CAD (coronary artery disease) Multivessel disease COPD (chronic obstructive pulmonary disease) Diabetes mellitus, type II Heart failure with reduced ejection fraction HTN (hypertension) Ischemic cardiomyopathy Lung nodule NSTEMI (non-ST elevation myocardial infarction) Palliative care encounter Paroxysmal atrial fibrillation Surgical History Hx of colonoscopy Family History Other Cancer Hypertension Social History Smoking Status: Former smoker Tobacco Type: Cigarettes Hx Alcohol Use: Yes Alcohol type: beer Alcohol type Comment: 5 beers nightly, last drink 05/30/22 Hx Substance Use: No Preferred Language: Malagasy Communication Ability: Effective [employer] Vault Custodian Required: No Beliefs That Will Affect Care: Ep[employer] Current Living Situation: Family Other Information That Helps Us Care for You: No Feels Safe at Home: Yes Safety Concerns: Feels Safe At This Time Assistive Devices: Cane, Denture - Upper, Denture - Lower, Oxygen - Continuous and Walker Review of Systems Constitutional: + fatigue, + weakness and + weight gain (BLE edema) Eyes: + dry eyes Ear, Nose, Mouth, Throat: + hearing loss Respiratory: + cough, + dyspnea, + dyspnea on exertion and + sputum production Cardiovascular: + dyspnea, + dyspnea at rest, + dyspnea on exertion, + orthopnea, + palpitations and + edema Gastrointestinal: + heartburn Genitourinary: + urinary frequency and + urinary hesitancy Musculoskeletal: + stiffness, + limited range of motion, + muscle weakness and + muscle atrophy Integumentary: as per Subjective / HPI (easy bruising) Neurologic: + generalized weakness Psychiatric: + depression and + difficulty concentrating Endocrine: + fatigue Physical Exam Constitutional: + acute distress (resp distress on bipap), + ill appearing, + cachectic and + frail appearing Eyes: PERRL, conjunctivae normal, anicteric sclerae ENMT: external ear and nose normal, oropharynx normal (dentition fair, mucosa sl dry) Neck: trachea midline, no thyromegaly Respiratory: + respiratory distress, + labored breathing, + uses accessory muscles, + cough and + pursed lip breathing Auscultation: + diminished lung sounds Cardiovascular: Rate/Rhythm: + irregularly irregular Gastrointestinal (Abdomen): normal bowel sounds, soft, nontender, no hepatosplenomegaly (scaphoid abdomen) Musculoskeletal: generalized weakness Skin: pale, cool to touch; scatt ecchymoses, easy bruising noted Neurologic: PERRL, EOMI, accommodation nl, no face palsy, no dysarthria awake Psychiatric: Insight: + limited insight Judgement: + limited judgement anxious, pressured speech. Results & Data ([facility]) Vital Signs (Past 12 Hours) Vital Signs Temp Pulse Pulse Resp BP Pulse Ox O2 Del Method 07/26/22 09:00 85 22 98 BiPAP 07/26/22 09:00 110/60 07/26/22 08:30 100 H 31 H 89 L BiPAP 07/26/22 08:00 90 22 93 Nasal Cannula 07/26/22 08:00 107/66 07/26/22 07:30 91 H 31 H 89 L Nasal Cannula 07/26/22 07:00 84 22 99 Nasal Cannula 07/26/22 07:00 106/62 07/26/22 07:27 Nasal Cannula 07/26/22 07:25 88 07/26/22 04:00 36.8 C 07/26/22 03:30 82 29 H 100 07/26/22 03:00 86 29 H 98 07/26/22 03:00 103/67 07/26/22 02:30 91 H 32 H 99 07/26/22 02:00 103 H 29 H 95 07/26/22 02:00 138/78 07/26/22 02:00 103 H 40 H 96 07/26/22 02:00 103 H 40 H 96 BiPAP 07/26/22 01:30 92 H 22 89 L 07/26/22 01:00 82 32 H 91 07/26/22 01:00 101/62 07/26/22 00:30 83 31 H 92 07/26/22 00:00 81 20 94 07/26/22 00:00 103/61 07/26/22 00:00 79 07/25/22 23:30 81 25 H 93 07/25/22 23:30 98/60 L 07/25/22 23:00 79 30 H 92 07/25/22 23:00 89/59 L 07/25/22 22:30 79 29 H 95 07/25/22 22:30 98/62 L 07/25/22 22:00 81 31 H 90 07/25/22 22:00 94/58 L 07/25/22 23:32 36.7 C O2 Flow Rate FiO2 07/26/22 09:00 07/26/22 09:00 07/26/22 08:30 07/26/22 08:00 4 07/26/22 08:00 07/26/22 07:30 2 07/26/22 07:00 2 07/26/22 07:00 07/26/22 07:27 2 07/26/22 07:25 07/26/22 04:00 07/26/22 03:30 07/26/22 03:00 07/26/22 03:00 07/26/22 02:30 07/26/22 02:00 07/26/22 02:00 07/26/22 02:00 35 07/26/22 02:00 35 07/26/22 01:30 07/26/22 01:00 07/26/22 01:00 07/26/22 00:30 07/26/22 00:00 07/26/22 00:00 07/26/22 00:00 07/25/22 23:30 07/25/22 23:30 07/25/22 23:00 07/25/22 23:00 07/25/22 22:30 07/25/22 22:30 07/25/22 22:00 07/25/22 22:00 07/25/22 23:32 PG Care Time/CCT Total # of Minutes Spent Total Time Spent: 70 Total Time Spent with Patient: Total time spent is greater than 50% in coordination of care (as documented) at patient's floor/unit and/or counseling patient: Prolonged Care Time Prolonged Care Time: Yes Advanced Care Planning 30764 Advanced Care Planning 30 Min Coding Level of Care Code New Pt INP/OBS CONSULT LVL 5, 80 MIN Patient Type New History Comprehensive Exam Comprehensive Medical Decision Making Moderate Complexity Diagnoses Palliative care encounter Z51.5 Acute on chronic heart failure with reduced ejection fraction and diastolic dysfunction I50.43 Advanced care planning/counseling discussion Z71.89 Acute respiratory failure with hypoxia and hypercapnia J96.01; J96.02 Alcohol use disorder F19.90 Additional Codes Prolonged Care Time - Prolonged Care Time: Yes ([id number]) Advanced Care Planning - 55406 Advanced Care Planning 30 Min: 20569 Advanced Care Planning 30 Min ([id number])
--- NOTE | 2022-07-26 10:07 | Billing Data ---
Date of Service July 26, 2022 Coding Level of Care Code Critical Care 1st 30-74 mins Time Spent (min) 36
--- NOTE | 2022-07-26 10:18 | Critical Care Progress Note ---
Date of Service July 26, 2022 Assessment & Plan (1) Acute respiratory failure with hypoxia and hypercapnia: Plan: Pt is a 66 yo male w/ PMH of multiple vessel CAD s/p stenting, COPD, DM, heart failure w/ reduced ejection fraction, and HTN presenting d/t increased SOB. Reason critically ill: hypotension requiring pressors, heart failure exacerbation refractory to tx Neuro: - CAM ICU: negative - pt alert and oriented; no concerns at this time Cardiac: - hx of afib; NSR, continue eliquis anticoagulation and amiodarone - hx of CAD s/p multiple stents; elevated troponin originally, downtrended - hx of chronic heart failure w/ reduced ejection fraction and diastolic dysfunction - acute CHF exacerbation w/ hypotension; continued diuresis w/ 40 mg additional lasix 07/25, d/c levophed and midodrine, begin dobutamine at 2.5 mcg/kg/min - concern for developing contraction alkalosis; pending urinary output w/ dobutamine and VBG pH (as bicarb has been trending up), may consider additional diuresis w/ acetazolamide or thiazide - echo 07/25 showed septal, inferior fall, and lateral wall hypokinesis w/ EF 35-40%, moderate pulmonary HTN, moderate to severe MR - consult palliative for goals of care discussion Respiratory: - hx of COPD tx w/ symbicort, spiriva, and albuterol at home - pt recently treated for pneumonia (d/c 07/15/2022) w/ cefuroxime and doxy - CXR 07/26/2022 no significant change from 07/24/2022 - neg for flu, RSV, COVID - continue breo, incruse, and albuterol PRN -Completed course of cefepime today and start doxycycline to cover for atypicals. Check bio fire. GI: - diet: low sodium, carb consistent, heart healthy Renal/electrolytes: - Phosphorous low at 1.9- repleted - Replace electrolytes as needed : - No concerns at this time Endo: - hx of DM, takes jardiance 10 mg at home; held while hospitalized - recent A1c 07/08/2022= 5.3% - Follow ICU hyperglycemic protocols Heme: - chronic iron deficiency anemia, takes iron supplementation at home - Hgb stable - continue to monitor Lines/IV access: peripheral IV DVT ppx: anticoagulated d/t afib; eliquis 5 mg BID Please refer to Dr. Arroyo's documentation for any further recommendations. (2) COPD (chronic obstructive pulmonary disease): (3) Elevated troponin: (4) Anemia: (5) Acute on chronic heart failure with reduced ejection fraction and diastolic dysfunction: Admission and Anticipated Discharge Date Admission Date: July 24, 2022 Supervising Physician Co-Signing Physician Notes Patient seen and examined with the resident physician. Agree with her assessment and plan aside for any additions/exceptions noted: Patient was requiring BiPAP this morning due to hypoxia increased work of breathing. He has a worsening metabolic alkalosis. We performed a VBG today which revealed a mild acidosis with a pH of 7.36. We will hold off on acetazolamide at this time. We will discontinue Levophed and start the patient on dobutamine to help improve diuresis. I rechecked a BNP which indicated a downtrend from [id number] over the past 2 days. May need to consider the addition of a thiazide diuretic given the patient's worsening metabolic alkalosis and increasing creatinine. We will hold at this time on IV diuretic therapy and simply see his response to dobutamine. He is currently on cefepime for broad-spectrum antibiotics. His procalcitonin has increased slightly which may be related to impaired renal function. His MRSA screen yesterday was negative. We will add doxycycline for atypical coverage and obtain a bio fire given the persistent infiltrates noted on chest x-ray and increasing white count. We will also order a urine Legionella ag. I have consulted palliative care given his severe cardiomyopathy. He is currently listed as a full code and I am doubtful that he will survive a cardiac arrest situation given his advanced cardiomyopathy. Case discussed on multidisciplinary rounds. Case also discussed with palliative care and cardiology. CRITICAL CARE TIME - I have personally spent 36 minutes of critical care time in the direct management of this patient. This is a life/limb threatening event. This includes time spent evaluating patient, direct bedside care, chart review, placing orders, interpretation of diagnostic studies, discussion with consultants, patie nt, and family members, as well as other required patient management activities. This time is exclusive of all separately billable procedures, and teaching time and separate from and in addition to any other critical care service time. Subjective Pt is a 66 yo male w/ PMH of multiple vessel CAD s/p stenting, COPD, DM, heart failure w/ reduced ejection fraction, and HTN presenting d/t increased SOB. Pt seen at bedside this AM. He describes an increase in difficulty breathing. He states he feels like he "has to work harder" to breath. He denies productive cough. He denies chest pain, abdominal pain, and leg pains. Review of Systems Review of Systems: All systems reviewed & are unremarkable except as noted in HPI & below Physical Exam Constitutional: NAD. O2 sats in the low 90s on 4 L NC, transitioned to BIPAP after eating breakfast as sats dropped. Oxygenating well on BIPAP. Neck: No thyromegaly. Trachea midline. Respiratory: Decreased breath sounds throughout. Rhonchi heard R>L. Expiratory wheezing appreciated. Increased work of breathing. Cardiovascular: RRR. No murmur noted. 1+ pitting edema of bilateral feet. Psychiatric: Alert. Mood and affect congruent. Results & Data Results & Data ([facility]) Vital Signs (Past 12 Hours) Vital Signs Temp Pulse Pulse Resp BP Pulse Ox O2 Del Method 07/26/22 09:54 87 24 100 07/26/22 09:00 85 22 98 BiPAP 07/26/22 09:00 110/60 07/26/22 08:30 100 H 31 H 89 L BiPAP 07/26/22 08:00 90 22 93 Nasal Cannula 07/26/22 08:00 107/66 07/26/22 07:30 91 H 31 H 89 L Nasal Cannula 07/26/22 07:00 84 22 99 Nasal Cannula 07/26/22 07:00 106/62 07/26/22 07:27 Nasal Cannula 07/26/22 07:25 88 07/26/22 04:00 36.8 C 07/26/22 03:30 82 29 H 100 07/26/22 03:00 86 29 H 98 07/26/22 03:00 103/67 07/26/22 02:30 91 H 32 H 99 07/26/22 02:00 103 H 29 H 95 07/26/22 02:00 138/78 07/26/22 02:00 103 H 40 H 96 07/26/22 02:00 103 H 40 H 96 BiPAP 07/26/22 01:30 92 H 22 89 L 07/26/22 01:00 82 32 H 91 01/24/23 01:00 101/62 07/26/22 00:30 83 31 H 92 07/26/22 00:00 81 20 94 07/26/22 00:00 103/61 07/26/22 00:00 79 07/25/22 23:30 81 25 H 93 07/25/22 23:30 98/60 L 07/25/22 23:00 79 30 H 92 07/25/22 23:00 89/59 L 07/25/22 22:30 79 29 H 95 07/25/22 22:30 98/62 L 07/25/22 23:32 36.7 C O2 Flow Rate FiO2 07/26/22 09:54 30 07/26/22 09:00 07/26/22 09:00 07/26/22 08:30 07/26/22 08:00 4 07/26/22 08:00 07/26/22 07:30 2 07/26/22 07:00 2 07/26/22 07:00 07/26/22 07:27 2 07/26/22 07:25 07/26/22 04:00 07/26/22 03:30 07/26/22 03:00 07/26/22 03:00 07/26/22 02:30 07/26/22 02:00 07/26/22 02:00 07/26/22 02:00 35 07/26/22 02:00 35 07/26/22 01:30 07/26/22 01:00 07/26/22 01:00 07/26/22 00:30 07/26/22 00:00 07/26/22 00:00 07/26/22 00:00 07/25/22 23:30 07/25/22 23:30 07/25/22 23:00 07/25/22 23:00 07/25/22 22:30 07/25/22 22:30 07/25/22 23:32 Resident Activity Tracking Resident Involvement: Resident Care Provided Care Provided: Adult Hospital Medicine (1) COPD (chronic obstructive pulmonary disease) COPD type: COPD with acute lower respiratory infection Qualified Code(s): J44.0 - Chronic obstructive pulmonary disease with (acute) lower respiratory infection
--- NOTE | 2022-07-26 10:47 | Cardiology Progress Note ---
Date of Service July 26, 2022 Assessment & Plan (1) Acute respiratory failure with hypoxia and hypercapnia: (2) Elevated troponin: (3) COPD (chronic obstructive pulmonary disease): (4) CHF (congestive heart failure): (5) CAD (coronary artery disease): (6) Heart failure with reduced ejection fraction: Plan The patient returned to the BiPAP. He appears to be comfortable. Difficulty maintaining his blood pressure off of Levophed. Agree with the plan to start dobutamine as well as midodrine. The patient has an elevated white count. Possibly septic? Admission and Anticipated Discharge Date Admission Date: July 24, 2022 Subjective The patient is on BiPAP this morning but alert. Review of Systems Review of Systems: Not obtainable Physical Exam Physical Exam: General: On BiPAP and looks comfortable Head: normocephalic, no masses, lesions, tenderness or abnormalities Eyes: conjunctiva are pink and non-injected, sclera clear Neck: supple, no adenopathy, no bruits, normal jugular venous pulse, no hepatojugular reflux Chest: normal shape and normal respiratory effort Lungs: clear to auscultation and percussion Cardiac Exam: - regular rate & rhythm, no murmurs gallops or rubs - normal S1, normal S2 Pulses: 2(+) throughout Abdomen: abdomen soft, non-tender, no abnormal masses and no hepatosplenomegaly Musculoskeletal: no gait disturbance, no joint inflammation, no deforming arthritis Extremities: no edema and no cyanosis Neuro: grossly normal exam Results & Data ([facility]) Vital Signs (Past 12 Hours) Vital Signs Temp Pulse Pulse Resp BP Pulse Ox O2 Del Method 07/26/22 10:15 83 28 H 100 BiPAP 07/26/22 10:15 94/54 L 07/26/22 10:00 81 31 H 100 BiPAP 07/26/22 10:00 91/57 L 07/26/22 09:45 84 26 H 07/26/22 09:30 82 26 H 97 07/26/22 09:15 85 31 H 99 07/26/22 09:54 87 24 100 07/26/22 09:00 85 22 98 BiPAP 07/26/22 09:00 110/60 07/26/22 08:30 100 H 31 H 89 L BiPAP 07/26/22 08:00 90 22 93 Nasal Cannula 07/26/22 08:00 107/66 07/26/22 07:30 91 H 31 H 89 L Nasal Cannula 07/26/22 07:00 84 22 99 Nasal Cannula 07/26/22 07:00 106/62 07/26/22 07:27 Nasal Cannula 07/26/22 07:25 88 07/26/22 04:00 36.8 C 07/26/22 03:30 82 29 H 100 07/26/22 03:00 86 29 H 98 07/26/22 03:00 103/67 07/26/22 02:30 91 H 32 H 99 07/26/22 02:00 103 H 29 H 95 07/26/22 02:00 138/78 07/26/22 02:00 103 H 40 H 96 07/26/22 02:00 103 H 40 H 96 BiPAP 07/26/22 01:30 92 H 22 89 L 07/26/22 01:00 82 32 H 91 07/26/22 01:00 101/62 07/26/22 00:30 83 31 H 92 07/26/22 00:00 81 20 94 07/26/22 00:00 103/61 07/26/22 00:00 79 07/25/22 23:30 81 25 H 93 07/25/22 23:30 98/60 L 07/25/22 23:00 79 30 H 92 07/25/22 23:00 89/59 L 07/25/22 23:32 36.7 C O2 Flow Rate FiO2 07/26/22 10:15 07/26/22 10:15 07/26/22 10:00 07/26/22 10:00 07/26/22 09:45 07/26/22 09:30 07/26/22 09:15 07/26/22 09:54 30 07/26/22 09:00 07/26/22 09:00 07/26/22 08:30 07/26/22 08:00 4 07/26/22 08:00 07/26/22 07:30 2 07/26/22 07:00 2 07/26/22 07:00 07/26/22 07:27 2 07/26/22 07:25 07/26/22 04:00 07/26/22 03:30 07/26/22 03:00 07/26/22 03:00 07/26/22 02:30 07/26/22 02:00 07/26/22 02:00 07/26/22 02:00 35 07/26/22 02:00 35 07/26/22 01:30 07/26/22 01:00 07/26/22 01:00 07/26/22 00:30 07/26/22 00:00 07/26/22 00:00 07/26/22 00:00 07/25/22 23:30 07/25/22 23:30 07/25/22 23:00 07/25/22 23:00 07/25/22 23:32 Laboratory Results Laboratory Results - last 24 hr 07/25/22 07/25/22 07/25/22 11:18 16:03 21:36 WBC RBC Hgb Hct MCV MCH MCHC RDW Std Deviation RDW Coeff of Gordon Plt Count MPV VBG pH Sodium Potassium Chloride Carbon Dioxide Anion Gap BUN Creatinine Est Cr Clr Drug Dosing Est GFR ( Amer) Est GFR (Non-Af Amer) BUN/Creatinine Ratio Glucose POC Glucose 109 H 124 H 127 H Calcium Phosphorus Magnesium Total Bilirubin AST ALT Alkaline Phosphatase B-Natriuretic Peptide Total Protein Albumin Globulin Albumin/Globulin Ratio Procalcitonin 07/26/22 07/26/22 07/26/22 04:35 04:35 07:42 WBC 15.44 H RBC 3.12 L Hgb 9.3 L Hct 29.4 L MCV 94.2 MCH 29.8 MCHC 31.6 L RDW Std Deviation 54.8 H RDW Coeff of Gordon 15.8 H Plt Count 240 MPV 9.6 VBG pH Sodium 135 L Potassium 4.0 Chloride 95 L Carbon Dioxide 38 H Anion Gap 2 L BUN 25 H Creatinine 0.63 Est Cr Clr Drug Dosing 80.5 Est GFR ( Amer) 118.2 Est GFR (Non-Af Amer) 102.0 BUN/Creatinine Ratio 39.7 H Glucose 84 POC Glucose 100 H Calcium 8.0 L Phosphorus 1.9 L Magnesium 2.3 Total Bilirubin 0.7 D AST 21 ALT 28 Alkaline Phosphatase 71 B-Natriuretic Peptide Total Protein 5.6 L Albumin 3.4 Globulin 2.2 L Albumin/Globulin Ratio 1.5 Procalcitonin 07/26/22 07/26/22 07/26/22 09:27 09:28 09:46 WBC RBC Hgb Hct MCV MCH MCHC RDW Std Deviation RDW Coeff of Gordon Plt Count MPV VBG pH 7.36 Sodium Potassium Chloride Carbon Dioxide Anion Gap BUN Creatinine Est Cr Clr Drug Dosing Est GFR ( Amer) Est GFR (Non-Af Amer) BUN/Creatinine Ratio Glucose POC Glucose Calcium Phosphorus Magnesium Total Bilirubin AST ALT Alkaline Phosphatase B-Natriuretic Peptide 1513 H Total Protein Albumin Globulin Albumin/Globulin Ratio Procalcitonin 0.73 H Medications Administered Current Inpatient Medications Albuterol (Albuterol 0.083% Nebu Soln 3 Ml Vial) 1.25 mg INH Q4H PRN; Protocol PRN Reason: bronchospasm Stop: 08/23/22 18:17 Last Admin: 07/26/22 01:52 Dose: 2.5 mg Albuterol (Albuterol Hfa 8 Gm Inhaler) 2 puffs INH Q4H PRN PRN Reason: Shortness Of Breath Or Wheezing Stop: 08/23/22 18:17 Amiodarone HCl (Amiodarone 200 Mg Tab) 200 mg PO DAILY [facility] Stop: 08/24/22 08:59 Last Admin: 07/26/22 08:18 Dose: 200 mg Apixaban (Apixaban 5 Mg Tablet) 5 mg PO BID [facility] Stop: 08/23/22 20:59 Last Admin: 07/26/22 08:18 Dose: 5 mg Atorvastatin Calcium (Atorvastatin 40 Mg Tab) 80 mg PO DAILY [facility] Stop: 08/24/22 08:59 Last Admin: 07/26/22 08:18 Dose: 80 mg Clopidogrel Bisulfate (Clopidogrel Bisulfate 75 Mg Tab) 75 mg PO DAILY [facility] Stop: 08/24/22 08:59 Last Admin: 07/26/22 08:19 Dose: 75 mg Fluticasone/Vilanterol (Fluticasone/Vilanterol 100/25mcg 14 Puffs/Inhaler) 1 puffs INH DAILY [facility] Stop: 08/24/22 08:59 Last Admin: 07/26/22 08:20 Dose: 1 puffs Cefepime HCl 2,000 mg/ Syringe 20 mls @ 5 mls/min IV Q8H [facility]; Protocol Stop: 07/26/22 19:59 Last Admin: 07/26/22 02:47 Dose: 5 mls/min Norepinephrine Bitartrate (Levophed/D5w) 4 mg in 250 mls @ 11.25 mls/hr IV .[id number] [facility]; Protocol Stop: 08/23/22 23:44 Last Titration: 07/26/22 09:45 Dose: 0 mcg/kg/min, 0 mls/hr Sodium Phosphate 21 mmol/ (Sodium Chloride) 507 mls @ 88 mls/hr IV ONE ONE Stop: 07/26/22 12:00 Last Admin: 07/26/22 06:42 Dose: 88 mls/hr Dobutamine HCl/Dextrose (Dobutamine / D5w) 500 mg in 250 mls @ 3.638 mls/hr IV .Q24H [facility]; Protocol Stop: 08/25/22 09:29 Last Titration: 07/26/22 10:23 Dose: 4.5 mcg/kg/min, 6.5 mls/hr Miscellaneous (I[facility] Protocol For Hyperglycemia) 1 each N/A ACHS [facility] Stop: 07/26/22 16:32 Last Admin: 07/26/22 08:12 Dose: Not Given Miscellaneous ([facility] Electrolyte Replacement Protocol) 1 each N/A BID@06,18 [facility]; Protocol Stop: 08/02/22 05:59 Last Admin: 07/26/22 05:53 Dose: 1 each Pantoprazole Sodium (Pantoprazole 40 Mg Tab) 40 mg PO DAILY [facility] Stop: 08/24/22 08:59 Last Admin: 07/26/22 08:20 Dose: 40 mg Umeclidinium Reeves (Umeclidinium Reeves 62.5mcg/Blister 7 Puffs/Inhaler) 1 puffs INH [facility]ILY [facility] Stop: 08/24/22 08:59 Last Admin: 07/26/22 08:20 Dose: 1 puffs (1) CHF (congestive heart failure) Heart failure chronicity: acute on chronic Heart failure type: systolic Qualified Code(s): I50.23 - Acute on chronic systolic (congestive) heart failure (2) COPD (chronic obstructive pulmonary disease) COPD type: COPD with acute lower respiratory infection Qualified Code(s): J44.0 - Chronic obstructive pulmonary disease with (acute) lower respiratory infection
[2022-07-26] MEDS ORDERED: MIDODRINE HCL 2.5 MG TAB PO SCH (12:00)
--- NOTE | 2022-07-26 12:16 | Hospitalist Progress Note ---
Date of Service July 26, 2022 Assessment & Plan (1) Respiratory failure with hypoxia and hypercapnia: (2) Acute on chronic heart failure with reduced ejection fraction and diastolic dysfunction: Plan: 66-year-old male with PMH alcohol abuse, tobacco abuse, NSTEMI, history of cardiogenic shock, ischemic cardiomyopathy, atrial fibrillation anticoagulated on Eliquis, chest wall hematoma and others listed below presented to ER with complaint of shortness of breath. Reported that patient was noted to be hypoxic in the 70s on his home 4 L oxygen upon EMS arrival. EMS reported patient was also agitated when tried to place him on non-rebreather and reported to give ativan. Recently history cardiogenic shock, ischemic cardiomyopathy required intra- aortic balloon pump which was later upgraded to Impella, also required intubation for pulmonary [place] [facility] Impella was removed. 05/31/2022 echo: EF: 20-25%, posterior and inferior wall akinetic, severe global hypokinesis, moderate MR, mild TR 07/08/2022 echo: EF: 45-50%, grade 2 diastolic dysfunction, moderate MR Upon arrival in ER patient was noted to be tachypneic and placed on BiPAP. WBC: 13, lactate: 1.9, procalcitonin: 0.06. BNP 2629, negative SARS-CoV-2, influenza, RSV PCR. EKG without acute ST changes CXR: Cardiomegaly with pulmonary edema. Small pleural effusions with mild bibasilar opacities appears similar to the 07/14/2022 exam. Flu, RSV, COVID are negative Initial high-sensitivity troponin: 40.8. Trended down to 29 XR today reviewed Has been diuresing Continue management in ICU Continue to hold Entresto Monitor I/O Echo today noted EF of 35-40%, septal akinesis, inf wall akinesis, mod to severe lateral wall hypokinesis, mild to mod reduced RVSF, mild dil LA/RA, mod to severe MR, mild to mod TR Patient has leukocytosis today. He does meet SIRS criteria today with tachypnea, tachycardia, leukocytosis Hence sepsis is a possibility Continue cefepime. Doxycycline added by ICU team Follow up infectious workup Discussed with party plan sales unit advisor and Mortgage Loan Processor Pressor changed to dobutamine Continue ICU care Patient was seen by clinical applications specialist last visit. Will get them back on board this time (3) Hypomagnesemia: Plan: On admission, Magnesium: 1.6 Repleted Mg is 2.3 this AM Hypophosphatemia today at 1.9. Getting repleted (4) CAD (coronary artery disease): Plan: 05/31/2022: NSTEMI, cardiogenic shock. S/p cardiac cath which showed severe multivessel CAD and was [place] [facility] Had multivessel PCI [place] [facility] On atorvastatin, Plavix (5) Paroxysmal atrial fibrillation: Plan: History onset atrial fibrillation during hospitalization [place] [facility] On amiodarone, Eliquis (6) Diabetes mellitus, type II: Plan: A1c: 5.3 on 07/08/2022 Hold Jardiance NovoLog sliding scale per protocol (7) COPD (chronic obstructive pulmonary disease): Plan: Continue home inhalers (8) Anemia: Plan: Hgb 9.3 today (baseline) DVT Prophylaxis On Eliquis Disposition ICU Full Code Follows with Dr Andrew for routine care Admission and Anticipated Discharge Date Admission Date: July 24, 2022 Subjective Patient seen and examined Still has cough and shortness of breath Denied any chest pain, dizziness, headache Denied any fever, chills Denied nausea, vomiting, abd pain, diarrhea Physical Exam Constitutional: + well hydrated; no acute distress Eyes: PERRL, conjunctivae normal, anicteric sclerae ENMT: external ear and nose normal, oropharynx normal Respiratory: normal respiratory effort; no respiratory distress Decreased breath sounds Cardiovascular: Rate/Rhythm: regular rate and regular rhythm S1 S2 Gastrointestinal (Abdomen): normal bowel sounds, soft, nontender, no hepatosplenomegaly Musculoskeletal: Bilateral pedal edema improved Neurologic: PERRL, EOMI, accommodation nl, no face palsy, no dysarthria Psychiatric: A+Ox3, euthymic affect Results & Data Results & Data ([facility]) Vital Signs (Past 12 Hours) Vital Signs Temp Pulse Pulse Resp BP Pulse Ox O2 Del Method 07/26/22 11:45 98 H 22 Nasal Cannula 07/26/22 11:30 87 28 H 99 BiPAP 07/26/22 11:30 95/60 L 07/26/22 11:15 87 27 H 94 BiPAP 07/26/22 11:15 91/56 L 07/26/22 11:00 85 34 H 96 BiPAP 07/26/22 11:00 97/59 L 07/26/22 10:45 83 33 H 91 BiPAP 07/26/22 10:45 93/56 L 07/26/22 10:30 84 32 H 07/26/22 10:30 91/54 L 07/26/22 11:45 36.6 C 07/26/22 10:15 83 28 H 100 BiPAP 07/26/22 10:15 94/54 L 07/26/22 10:00 81 31 H 100 BiPAP 07/26/22 10:00 91/57 L 07/26/22 09:45 84 26 H 07/26/22 09:30 82 26 H 97 07/26/22 09:15 85 31 H 99 07/26/22 09:54 87 24 100 07/26/22 09:00 85 22 98 BiPAP 07/26/22 09:00 110/60 07/26/22 08:30 100 H 31 H 89 L BiPAP 07/26/22 08:00 90 22 93 Nasal Cannula 07/26/22 08:00 107/66 07/26/22 07:30 91 H 31 H 89 L Nasal Cannula 07/26/22 07:00 84 22 99 Nasal Cannula 07/26/22 07:00 106/62 07/26/22 07:27 Nasal Cannula 07/26/22 07:25 88 07/26/22 04:00 36.8 C 07/26/22 03:30 82 29 H 100 07/26/22 03:00 86 29 H 98 07/26/22 03:00 103/67 07/26/22 02:30 91 H 32 H 99 07/26/22 02:00 103 H 29 H 95 07/26/22 02:00 138/78 07/26/22 02:00 103 H 40 H 96 07/26/22 02:00 103 H 40 H 96 BiPAP 07/26/22 01:30 92 H 22 89 L 07/26/22 01:00 82 32 H 91 07/26/22 01:00 101/62 07/26/22 00:30 83 31 H 92 O2 Flow Rate FiO2 07/26/22 11:45 6 07/26/22 11:30 07/26/22 11:30 07/26/22 11:15 07/26/22 11:15 07/26/22 11:00 07/26/22 11:00 07/26/22 10:45 07/26/22 10:45 07/26/22 10:30 07/26/22 10:30 07/26/22 11:45 07/26/22 10:15 07/26/22 10:15 07/26/22 10:00 07/26/22 10:00 07/26/22 09:45 07/26/22 09:30 07/26/22 09:15 07/26/22 09:54 30 07/26/22 09:00 07/26/22 09:00 07/26/22 08:30 07/26/22 08:00 4 07/26/22 08:00 07/26/22 07:30 2 07/26/22 07:00 2 07/26/22 07:00 07/26/22 07:27 2 07/26/22 07:25 07/26/22 04:00 07/26/22 03:30 07/26/22 03:00 07/26/22 03:00 07/26/22 02:30 07/26/22 02:00 07/26/22 02:00 07/26/22 02:00 35 07/26/22 02:00 35 07/26/22 01:30 07/26/22 01:00 07/26/22 01:00 07/26/22 00:30 (1) Respiratory failure with hypoxia and hypercapnia Chronicity: acute on chronic Qualified Code(s): J96.21 - Acute and chronic respiratory failure with hypoxia; J96.22 - Acute and chronic respiratory failure with hypercapnia; J96.22 - Acute and chronic respiratory failure with hypercapnia
[2022-07-26] MEDS: DOXYCYCLINE HYCLATE 100 MG in DEXTROSE 5% 100 ML IV SCH ×2 (12:35→23:46)
[2022-07-26 13:18] LABS: Adenovirus PCR Not Detected (NotDetected); Bordetella parapertussis PCR Not Detected (NotDetected); Bordetella pertussis PCR Not Detected (NotDetected); Chlamydia pneumoniae PCR Not Detected (NotDetected); Coronavirus 229E PCR Not Detected (NotDetected); Coronavirus CoV-2 (COVID19)PCR Not Detected (NotDetected); Coronavirus HKU1 PCR Not Detected (NotDetected); Coronavirus NL63 PCR Not Detected (NotDetected); Coronavirus OC43PCR Not Detected (NotDetected); Human Metapneumovirus PCR Not Detected (NotDetected); Influenza A PCR Not Detected (NotDetected); Influenza B PCR Not Detected (NotDetected); Mycoplasma pneumoniae PCR Not Detected (NotDetected); Parainfluenza Virus 1 PCR Not Detected (NotDetected); Parainfluenza Virus 2 PCR Not Detected (NotDetected); Parainfluenza Virus 3 PCR Not Detected (NotDetected); Parainfluenza Virus 4 PCR Not Detected (NotDetected); Respiratory Syncytial VirusPCR Not Detected (NotDetected); Rhinovirus/Enterovirus PCR Not Detected (NotDetected)
[2022-07-26] MEDS ORDERED: LORazepam 2 MG/1 ML VIAL IV STA (14:45)
[2022-07-26] MEDS: THIAMINE HCL 100 MG in SYRINGE 9 ML IV SCH (15:43)
[2022-07-26] MEDS ORDERED: Heparin IV Adult Wt-Based Standard *NO* Bolus Protocol IV SCH (17:15)
[2022-07-26] MEDS ORDERED: HEPARIN SODIUM/DEXTROSE 25,000 UNITS/500 ML BAG IV SCH (17:30)
[2022-07-26 17:46] LABS: BUN Creatinine Ratio 33.9 (10-20); Calcium 7.7 mg/dl (8.5-10.1); Creatinine Clr Calc Pharmacy 83.3 ml/min; Est GFR (African American) 121.4 ml/min; Est GFR (Non-African American) 104.8 ml/min; Magnesium 2.1 mg/dl (1.7-2.4); Potassium 3.8 mmol/L (3.5-5.1)
[2022-07-26] MEDS ORDERED: STAT IV STA (18:08)
[2022-07-26] MEDS ORDERED: FUROSEMIDE 40 MG/4 ML VIAL IV STA (18:08)
[2022-07-26] MEDS ORDERED: CALCIUM GLUCONATE 10% 2,000 MG in DEXTROSE 5% 50 ML IV ONE (18:30)
[2022-07-26] MEDS ORDERED: CHLOROTHIAZIDE SODIUM 500 MG in DEXTROSE 5% 50 ML IV ONE (18:30)
[2022-07-26] MEDS: POTASSIUM CHLORIDE / WTR 10 MEQ/100 ML PLCT IV SCH ×2 (18:33→20:11)
[2022-07-26 18:53] LABS: Basophils # (auto) 0.03 K/uL (0-0.2); Basophils % (auto) 0.3 %; Eosinophils # (auto) 0.01 K/uL (0-0.50); Eosinophils % (auto) 0.1 %; Hematocrit (blood only) 27.7 % (40.1-51.0); Hemoglobin 8.5 g/dl (14.0-18.0); Immature Granulocytes # (auto) 0.04 K/uL (0.00-0.02); Immature Granulocytes % (auto) 0.4 %; Lymphocytes # (auto) 0.58 K/uL (1.2-3.4); Lymphocytes % (auto) 5.6 %; Mean Corpuscular Hemoglobin 29.4 pg (25.0-34.0); Mean Corpuscular Hgb Conc 30.7 g/dL (32.0-36.0); Mean Corpuscular Volume 95.8 fL (80.0-100.0); Mean Platelet Volume 9.9 fL (9.4-12.4); Monocytes % (auto) 7.7 %; Neutrophils # (auto) 8.91 K/uL (1.4-6.5); Neutrophils % (auto) 85.9 %; Platelet Count 211 K/uL (130-400); RDW Coefficient of Variation 15.8 % (11.5-14.5); RDW Standard Deviation 55.8 fL (36.4-46.3); Red Blood Count 2.89 M/uL (4.63-6.08); White Blood Count 10.37 K/ul (4.8-10.8)
[2022-07-26 19:26] LABS: INR 1.1 (0.9-1.1); Partial Thromboplastin Ratio 1.2; Partial Thromboplastin Time 32.8 Seconds (21.0-31.0); Prothrombin Time 11.8 Seconds (9.0-12.0)
[2022-07-26] MEDS: NOREPINEPHRINE/D5W 4 MG/250 ML PLCT IV SCH (21:34)
[2022-07-27 05:34] LABS: BUN Creatinine Ratio 25.9 (10-20); Calcium 8.3 mg/dl (8.5-10.1); Creatinine Clr Calc Pharmacy 91.1 ml/min; Est GFR (African American) 125.9 ml/min; Est GFR (Non-African American) 108.6 ml/min; Magnesium 1.9 mg/dl (1.7-2.4); Phosphorus 2.7 mg/dl (2.5-4.9); Potassium 3.6 mmol/L (3.5-5.1)
[2022-07-27] MEDS: ICU ELECTROLYTE REPLACEMENT PROTOCOL SCH ×2 (05:52→16:03)
[2022-07-27 06:08] LABS: Partial Thromboplastin Ratio 2.1
[2022-07-27] MEDS: MAGNESIUM SULFATE / D5W 1 GM/100 ML BAG IV SCH ×2 (06:18→07:50)
[2022-07-27] MEDS: POTASSIUM CHLORIDE / WTR 10 MEQ/100 ML PLCT IV SCH ×4 (06:18→11:48)
[2022-07-27 06:23] LABS: Partial Thromboplastin Time 57.2 Seconds (21.0-31.0)
[2022-07-27] MEDS: PANTOprazole 40 MG TAB PO SCH (07:17)
[2022-07-27] MEDS: AMIODARONE 200 MG TAB PO SCH (07:17)
[2022-07-27] MEDS: ATORVASTATIN 40 MG TAB PO SCH (07:17)
[2022-07-27] MEDS: CLOPIDOGREL BISULFATE 75 MG TAB PO SCH (07:17)
[2022-07-27] MEDS: FLUTICASONE/VILANTEROL 100/25MCG 14 PUFFS/INHALER INH SCH (07:17)
[2022-07-27] MEDS: UMECLIDINIUM BROMIDE 62.5MCG/BLISTER 7 PUFFS/INHALER INH SCH (07:18)
[2022-07-27] MEDS: THIAMINE HCL 100 MG in SYRINGE 9 ML IV SCH (07:23)
--- NOTE | 2022-07-27 08:28 | Critical Care Progress Note ---
Date of Service July 27, 2022 Assessment & Plan (1) Acute respiratory failure with hypoxia and hypercapnia: Plan: Pt is a 66 yo male w/ PMH of multiple vessel CAD s/p stenting, COPD, DM, heart failure w/ reduced ejection fraction, and HTN presenting d/t increased SOB. Reason critically ill: heart failure exacerbation refractory to tx, now requiring dobutamine GTT Neuro: - CAM ICU: negative - pt alert and oriented; no concerns at this time Cardiac: - hx of afib; NSR, hold eliquis anticoagulation but continue amiodarone - hx of CAD s/p multiple stents; elevated troponin originally, downtrended - hx of chronic heart failure w/ reduced ejection fraction and diastolic dysfunction - acute CHF exacerbation w/ hypotension; pt currently on dobutamine 4.5 mcg/kg, no longer requiring levophed or midodrine - concern for developing contraction alkalosis; diuresed around 2 L w/ 40 mg lasix yesterday, pending ABG, may consider additional diuresis w/ acetazolamide if alkalemic - echo 07/25 showed septal, inferior fall, and lateral wall hypokinesis w/ EF 35-40%, moderate pulmonary HTN, moderate to severe MR - continue to monitor urine output Respiratory: - hx of COPD tx w/ symbicort, spiriva, and albuterol at home - pt recently treated for pneumonia (d/c 07/15/2022) w/ cefuroxime and doxy - CXR 07/26/2022 no significant change from 07/24/2022 - neg for flu, RSV, COVID - doxy added to cover atypicals - continue breo, incruse, and albuterol PRN - at this point, respiratory status more likely to be a product of his heart failure rather than infection GI: - diet: low sodium, carb consistent, heart healthy, soft, bite sized - pantoprazole 40 mg daily Renal/electrolytes: - Mg 1.9- repleted 2 gram - K 3.6- repleted 40 meq - Replace electrolytes as needed : - No concerns at this time Endo: - hx of DM, takes jardiance 10 mg at home; held while hospitalized - recent A1c 07/08/2022= 5.3% - Follow ICU hyperglycemic protocols Heme: - chronic iron deficiency anemia, takes iron supplementation at home - Hgb stable but is downtrending - continue to monitor in the setting of heparin GTT Lines/IV access: peripheral IV DVT ppx: anticoagulated d/t afib at home w/ eliquis 5 mg BID, switched to heparin GTT d/t possibility of procedural intervention Per palliative discussion w/ pt, pt not amenable or interested in palliative care/GOC discussions at this point. Please refer to Dr. Arroyo's documentation for any further recommendations. (2) COPD (chronic obstructive pulmonary disease): (3) Elevated troponin: (4) Anemia: (5) Acute on chronic heart failure with reduced ejection fraction and diastolic dysfunction: (6) Pneumonia: Plan Patient seen examined. Agree with the assessment and plan aside for any additions/exceptions noted: Patient is still has some labored breathing at times. He has been diuresing well with Diamox and dobutamine. We will decrease the dobutamine to 3 mics per hour. I had a lengthy discussion with him today again regarding his CODE STATUS. He does not seem interested in engaging in a true CODE STATUS discussion at this time. He remains a full code. I did have a lengthy discussion with his daughter yesterday as well regarding the CODE STATUS and i ndicated to her that we are going to respect his wishes and keep him as a full code. I reiterated to both the patient today and the patient daughter yesterday that I think his prognosis overall is quite guarded and I am not sure if that he would survive a cardiac arrest given his severe cardiomyopathy and COPD at baseline. Will continue doxycycline at this time as his leukocytosis did seem to improve with doxycycline. I would recommend a 5-day course. We will transition heparin back to Eliquis. Continue soft diet. Respiratory viral panel was - 07/26/2022. Urine Legionella antigen negative as well. Continue BiPAP when sleeping. ABG reviewed with evidence of chronic CO2 retention and acute metabolic alkalosis. Admission and Anticipated Discharge Date Admission Date: July 24, 2022 Subjective Pt is a 66 yo male w/ PMH of multiple vessel CAD s/p stenting, COPD, DM, heart failure w/ reduced ejection fraction, and HTN presenting d/t increased SOB Pt states he feels well this morning. He denies any further deteriorations with his breathing. He slept well last night. His anxiety has been well-controlled since receiving ativan yesterday. He does endorse similar episodes at home but he has never been treated for anxiety/panic disorder. Pt does not remember much from his conversation with palliative care yesterday. Review of Systems Review of Systems: All systems reviewed & are unremarkable except as noted in HPI & below Physical Exam Constitutional: NAD. Afebrile, vitals WNL, O2 sat in low 90s on 4 L NC. Pt on 2-4L baseline. Neck: No thyromegaly. Trachea midline. Respiratory: Decreased breath sounds throughout. No rhonchi, wheezing, or crackles. Non labored breathing. Cardiovascular: RRR. No murmur noted. No LE edema. Gastrointestinal (Abdomen): +BS, nondistended. Nontender throughout all quadrants. No masses noted. Psychiatric: Alert. Mood and affect congruent. Pt does not have great insight/understanding concerning the extent of his conditions. Results & Data Results & Data ([facility]) Vital Signs (Past 12 Hours) Vital Signs Temp Pulse Resp BP Pulse Ox FiO2 07/27/22 08:00 82 07/27/22 03:00 36.6 C 07/27/22 00:10 36.7 C 07/27/22 06:30 82 27 H 98 07/27/22 06:30 111/59 L 07/27/22 06:00 85 27 H 86 L 07/27/22 05:30 76 23 93 07/27/22 05:00 82 25 H 85 L 07/27/22 05:00 110/61 07/27/22 04:30 87 28 H 87 L 07/27/22 04:30 110/71 07/27/22 04:00 82 37 H 93 07/27/22 04:00 110/65 07/27/22 03:30 78 23 93 07/27/22 03:30 112/58 L 07/27/22 03:00 85 29 H 92 07/27/22 03:00 111/65 07/27/22 02:30 72 26 H 93 07/27/22 02:01 67 20 97 07/27/22 02:01 122/53 L 07/27/22 02:00 86 21 85 L 07/27/22 01:30 76 26 H 87 L 07/27/22 01:30 91/57 L 07/27/22 01:01 81 24 100 07/27/22 01:01 130/60 07/27/22 01:00 85 24 94 07/27/22 00:30 79 23 92 07/27/22 00:30 111/69 07/27/22 00:01 109/69 07/27/22 00:01 87 35 H 99 07/27/22 00:00 85 31 H 90 07/26/22 23:31 108/82 07/26/22 23:31 87 29 H 93 07/26/22 23:30 88 33 H 92 07/26/22 23:00 89 32 H 95 07/26/22 23:00 119/103 H 07/26/22 22:30 90 32 H 94 07/26/22 22:30 118/90 07/26/22 22:00 91 H 31 H 94 07/26/22 22:00 127/95 07/26/22 21:30 98 H 33 H 94 07/26/22 21:30 138/79 07/26/22 21:00 91 H 34 H 83 L 07/26/22 21:00 109/72 07/27/22 03:30 91 H 26 H 97 30 07/27/22 00:00 82 07/27/22 00:25 83 25 H 98 30 07/26/22 20:45 121/83 07/26/22 20:45 97 H 28 H 92 07/26/22 20:30 94 H 24 98 07/26/22 20:30 119/86 07/26/22 20:59 36.4 C Resident Activity Tracking Resident Involvement: Resident Care Provided Care Provided: Adult Hospital Medicine (1) COPD (chronic obstructive pulmonary disease) COPD type: COPD with acute lower respiratory infection Qualified Code(s): J44.0 - Chronic obstructive pulmonary disease with (acute) lower respiratory infection (2) Pneumonia Laterality: bilateral Pneumonia type: due to unspecified organism
[2022-07-27] MEDS: DOBUTamine / D5W 500 MG/250 ML BAG IV SCH (11:18)
[2022-07-27] MEDS: DOXYCYCLINE HYCLATE 100 MG in DEXTROSE 5% 100 ML IV SCH ×2 (12:21→23:30)
--- NOTE | 2022-07-27 12:37 | Billing Data ---
Date of Service July 27, 2022 Coding Level of Care Code Critical Care 1st 30-74 mins Time Spent (min) 41
[2022-07-27] MEDS: acetaZOLAMIDE 250 MG TAB PO SCH ×2 (13:17→20:40)
--- NOTE | 2022-07-27 13:31 | Hospitalist Progress Note ---
Date of Service July 27, 2022 Assessment & Plan (1) Respiratory failure with hypoxia and hypercapnia: Plan: Secondary to heart failure exacerbation. Intermittent BiPAP required and remains on all amount of oxygen supplementation. He remains in critical condition. Continue diuresis per plan below. He has a history of COPD on Symbicort Spiriva and albuterol at home. He was recently treated for pneumonia with cefuroxime and doxycycline. There was no significant change on chest x-ray on admission and he had a leukocytosis so was improved on doxycycline which is being continued. The general consensus among specialists is that his respiratory status is more likely a product of his heart failure rather than any infection. Continue pulmonary toilet and support as needed. (2) Acute on chronic heart failure with reduced ejection fraction and diastolic dysfunction: Plan: He is a history of cardiogenic shock NSTEMI in the last couple of months and ischemic cardiomyopathy. He is in atrial fibrillation anticoagulated on Eliquis. Cardiology is on board and he is currently on a dobutamine drip. Intermittent tachypnea as noted above but overall appears to be improving. We are continuing to hold Entresto. He continues on amiodarone per home dose. Lasix has been held at this point and acetazolamide is being given for a few doses to treat metabolic alkalosis. Of note, he is not a diabetic as previously documented, and is on Jardiance for the CV mortality benefit in heart failure. Discussed this with primary RN who is only doing one glucose check on him daily per ICU protocol. (3) Hypomagnesemia: Plan: Repleted. (4) Metabolic alkalosis: Plan: Bicarb is 39, continue acetazolamide. Continue holding Lasix. (5) CAD (coronary artery disease): Plan: 05/31/2022: NSTEMI, cardiogenic shock. S/p cardiac cath which showed severe multivessel CAD and was transferred to [facility] [place] Had multivessel PCI at [facility]. On atorvastatin, Plavix. No chest pain or active ACS at this time. Continue current medication. (6) Paroxysmal atrial fibrillation: Plan: Currently in sinus rhythm, continue amiodarone Eliquis as noted above. (7) COPD (chronic obstructive pulmonary disease): Plan: Chronic, stable. Continue home inhaler therapy. (8) Anemia: Plan: Hemoglobin around baseline. Continue monitoring daily labs. DVT Prophylaxis On Eliquis Disposition ICU Full Code DO Nani Polanco hospitalist Admission and Anticipated Discharge Date Admission Date: July 24, 2022 Subjective 66-year-old man admitted for acute respiratory failure secondary to acute heart failure exacerbation. He is off the lipid fied on midodrine but remains on the dobutamine today He is clearly dyspneic at rest but reports his breathing is close to his baseline. He reports ambulating 700 feet at baseline. He admits to multiple recent hospitalizations including acute illnesses such as pneumonia that he is recovering from which he thinks is playing a role here. He denies any chest pain abdominal issues and is tolerating p.o. Review of Systems Review of Systems: All systems are reviewed negative except as indicated above. Physical Exam Physical Exam: CONSTITUTIONAL: WNWD, vitals as above, NAD EYES: normal conjunctivae, no scleral icterus, ENT: external ear and nose normal, NECK: trachea midline, RESPIRATORY: clear to auscultation bilaterally, no crackles, rales or wheezes, increased respiratory effort at rest CARDIOVASCULAR: regular rate and rhythm, S1 and 2 heard without murmurs, gallops or rubs, no JVD, no peripheral edema CHEST: well healing incision in the right anterior chest wall GASTROINTESTINAL: soft, nontender, ND no guarding MUSCULOSKELETAL: strength 5/5 throughout, head is normocephalic and atraumatic, SKIN: warm and dry, NEUROLOGIC: CN 2-12 grossly intact, no sensory deficit, normal cognition, normal speech, no tremor PSYCHIATRIC: alert cooperative and oriented to person, place and time. Euthymic mood, makes good eye contact, language grossly intact, recent and remote memory grossly intact. Results & Data Results & Data ([facility]) Vital Signs (Past 12 Hours) Vital Signs Temp Pulse Resp BP Pulse Ox O2 Del Method O2 Flow Rate 07/27/22 11:48 90 07/27/22 10:04 90 26 H 96 07/27/22 08:30 105/63 07/27/22 08:30 87 27 H 90 07/27/22 08:15 113/65 07/27/22 08:15 85 24 90 Nasal Cannula 4 07/27/22 08:00 93 H 34 H 90 Nasal Cannula 4 07/27/22 08:00 130/77 07/27/22 07:45 125/61 07/27/22 07:45 89 22 92 Nasal Cannula 4 07/27/22 07:30 133/70 07/27/22 07:30 86 28 H 100 Nasal Cannula 4 07/27/22 07:15 96/60 L 07/27/22 07:15 85 26 H 96 Nasal Cannula 4 07/27/22 07:00 84 30 H 95 Nasal Cannula 4 07/27/22 07:00 113/77 07/27/22 06:45 85 28 H 100 Nasal Cannula 4 07/27/22 06:45 111/78 07/27/22 08:24 Nasal Cannula 4 07/27/22 08:00 82 07/27/22 03:00 36.6 C 07/27/22 06:30 82 27 H 98 07/27/22 06:30 111/59 L 07/27/22 06:00 85 27 H 86 L 07/27/22 05:30 76 23 93 07/27/22 05:00 82 25 H 85 L 07/27/22 05:00 110/61 07/27/22 04:30 87 28 H 87 L 07/27/22 04:30 110/71 07/27/22 04:00 82 37 H 93 07/27/22 04:00 110/65 07/27/22 03:30 78 23 93 07/27/22 03:30 112/58 L 07/27/22 03:00 85 29 H 92 07/27/22 03:00 111/65 07/27/22 02:30 72 26 H 93 07/27/22 02:01 67 20 97 07/27/22 02:01 122/53 L 07/27/22 02:00 86 21 85 L 07/27/22 03:30 91 H 26 H 97 FiO2 07/27/22 11:48 07/27/22 10:04 07/27/22 08:30 07/27/22 08:30 07/27/22 08:15 07/27/22 08:15 07/27/22 08:00 07/27/22 08:00 07/27/22 07:45 07/27/22 07:45 07/27/22 07:30 07/27/22 07:30 07/27/22 07:15 07/27/22 07:15 07/27/22 07:00 07/27/22 07:00 07/27/22 06:45 07/27/22 06:45 07/27/22 08:24 07/27/22 08:00 07/27/22 03:00 07/27/22 06:30 07/27/22 06:30 07/27/22 06:00 07/27/22 05:30 07/27/22 05:00 07/27/22 05:00 07/27/22 04:30 07/27/22 04:30 07/27/22 04:00 07/27/22 04:00 07/27/22 03:30 07/27/22 03:30 07/27/22 03:00 07/27/22 03:00 07/27/22 02:30 07/27/22 02:01 07/27/22 02:01 07/27/22 02:00 07/27/22 03:30 30 Laboratory Results Short CBC 07/26/22 Range/Units 18:30 WBC 10.37 (4.8-10.8) K/ul Hgb 8.5 L (14.0-18.0) g/dl Hct 27.7 L (40.1-51.0) % Plt Count 211 (130-400) K/uL BMP 07/26/22 07/27/22 17:15 04:48 Sodium 135 L 135 L Potassium 3.8 3.6 Chloride 96 L 93 L Carbon Dioxide 35 H 39 H BUN 20 14 Creatinine 0.59 L 0.54 L Glucose 114 H 100 H Calcium 7.7 L 8.3 L Medications Administered Current Inpatient Medications Acetazolamide (Acetazolamide 250 Mg Tab) 250 mg PO BID [facility] Stop: 07/28/22 21:01 Last Admin: 07/27/22 13:17 Dose: 250 mg Albuterol (Albuterol 0.083% Nebu Soln 3 Ml Vial) 1.25 mg INH Q4H PRN; Protocol PRN Reason: bronchospasm Stop: 08/23/22 18:17 Last Admin: 07/26/22 01:52 Dose: 2.5 mg Albuterol (Albuterol Hfa 8 Gm Inhaler) 2 puffs INH Q4H PRN PRN Reason: Shortness Of Breath Or Wheezing Stop: 08/23/22 18:17 Amiodarone HCl (Amiodarone 200 Mg Tab) 200 mg PO DAILY [facility] Stop: 08/24/22 08:59 Last Admin: 07/27/22 07:17 Dose: 200 mg Atorvastatin Calcium (Atorvastatin 40 Mg Tab) 80 mg PO DAILY [facility] Stop: 08/24/22 08:59 Last Admin: 07/27/22 07:17 Dose: 80 mg Clopidogrel Bisulfate (Clopidogrel Bisulfate 75 Mg Tab) 75 mg PO DAILY [facility] Stop: 08/24/22 08:59 Last Admin: 07/27/22 07:17 Dose: 75 mg Fluticasone/Vilanterol (Fluticasone/Vilanterol 100/25mcg 14 Puffs/Inhaler) 1 puffs INH DAILY [facility] Stop: 08/24/22 08:59 Last Admin: 07/27/22 07:17 Dose: 1 puffs Dobutamine HCl/Dextrose (Dobutamine / D5w) 500 mg in 250 mls @ 3.638 mls/hr IV .Q24H [facility]; Protocol Stop: 08/25/22 09:29 Last Admin: 07/27/22 11:18 Dose: Not Given Doxycycline Hyclate 100 mg/ (Dextrose) 110 mls @ 50 mls/hr IV Q12H [facility] Stop: 08/02/22 11:59 Last Admin: 07/27/22 12:21 Dose: 50 mls/hr Thiamine HCl 100 mg/ Syringe 10 mls @ 2 mls/min IV QAM [facility] Stop: 08/25/22 14:59 Last Admin: 07/27/22 07:23 Dose: 2 mls/min Heparin Sodium/Dextrose (Heparin Sodium/Dextrose) 25,000 units in 500 mls @ 17 mls/hr IV .Q24H [facility]; Protocol Stop: 08/25/22 17:29 Last Titration: 07/27/22 06:50 Dose: 850 units/hr, 17 mls/hr Miscellaneous (Icu Electrolyte Replacement Protocol) 1 each N/A BID@06,18 [facility]; Protocol Stop: 08/02/22 05:59 Last Admin: 07/27/22 05:52 Dose: 1 each Pantoprazole Sodium (Pantoprazole 40 Mg Tab) 40 mg PO DAILY [facility] Stop: 08/24/22 08:59 Last Admin: 07/27/22 07:17 Dose: 40 mg Umeclidinium [place] (Umeclidinium [place] 62.5mcg/Blister 7 Puffs/Inhaler) 1 puffs INH DAILY [facility] Stop: 08/24/22 08:59 Last Admin: 07/27/22 07:18 Dose: 1 puffs (1) Respiratory failure with hypoxia and hypercapnia Chronicity: acute on chronic Qualified Code(s): J96.21 - Acute and chronic respiratory failure with hypoxia; J96.22 - Acute and chronic respiratory failure with hypercapnia; J96.22 - Acute and chronic respiratory failure with hypercapnia
--- NOTE | 2022-07-27 16:30 | Cardiology Progress Note ---
Date of Service July 27, 2022 Assessment & Plan (1) Acute respiratory failure with hypoxia and hypercapnia: (2) Elevated troponin: (3) COPD (chronic obstructive pulmonary disease): (4) CHF (congestive heart failure): (5) CAD (coronary artery disease): (6) Heart failure with reduced ejection fraction: Plan The patient is clinically stable but tentative. He is asking for the BiPAP again and is being started. As mentioned he has had a good diuresis over the past 24 hours and his blood pressure has markedly improved with the dobutamine. I am not comfortable down titrating his dobutamine on a regular nursing floor. Recommend trying again tomorrow if the patient stable. Admission and Anticipated Discharge Date Admission Date: July 24, 2022 Subjective The patient is short of breath and asking for BiPAP. But over the past 24 hours did have a good diuresis and dobutamine is being titrated down. Review of Systems Review of Systems: Not obtainable Physical Exam Physical Exam: General: On BiPAP and looks comfortable Head: normocephalic, no masses, lesions, tenderness or abnormalities Eyes: conjunctiva are pink and non-injected, sclera clear Neck: supple, no adenopathy, no bruits, normal jugular venous pulse, no hepatojugular reflux Chest: normal shape and normal respiratory effort Lungs: clear to auscultation and percussion Cardiac Exam: - regular rate & rhythm, no murmurs gallops or rubs - normal S1, normal S2 Pulses: 2(+) throughout Abdomen: abdomen soft, non-tender, no abnormal masses and no hepatosplenomegaly Musculoskeletal: no gait disturbance, no joint inflammation, no deforming arthritis Extremities: no edema and no cyanosis Neuro: grossly normal exam Results & Data ([facility]) Vital Signs (Past 12 Hours) Vital Signs Pulse Resp BP Pulse Ox O2 Del Method O2 Flow Rate 07/27/22 16:00 94 H 23 94 BiPAP 07/27/22 15:45 132/73 07/27/22 15:45 97 H 30 H 84 L 07/27/22 15:30 133/68 07/27/22 15:30 92 H 28 H 89 L Nasal Cannula 4 07/27/22 15:15 106/58 L 07/27/22 15:15 89 17 07/27/22 15:00 87 21 89 L 07/27/22 15:00 111/51 L 07/27/22 14:45 86 21 07/27/22 14:45 108/59 L 07/27/22 14:30 87 25 H 88 L 07/27/22 14:30 105/68 07/27/22 14:00 91 H 22 81 L 07/27/22 14:00 106/69 07/27/22 13:45 114/66 07/27/22 13:45 89 19 89 L 07/27/22 13:30 101/72 07/27/22 13:30 85 33 H 86 L 07/27/22 13:15 105/57 L 07/27/22 13:15 90 23 81 L 07/27/22 13:00 88 20 90 07/27/22 13:00 103/69 07/27/22 12:45 93 H 24 91 07/27/22 12:45 102/53 L 07/27/22 12:30 97/57 L 07/27/22 12:30 94 H 23 87 L 07/27/22 12:15 104/63 07/27/22 12:15 92 H 29 H 86 L 07/27/22 12:00 92 H 26 H 91 07/27/22 12:00 114/70 07/27/22 11:30 103/60 07/27/22 11:30 94 H 27 H 89 L 07/27/22 11:15 111/64 07/27/22 11:15 83 26 H 95 07/27/22 11:00 86 19 07/27/22 10:45 106/68 07/27/22 10:45 84 25 H 92 07/27/22 10:30 110/61 07/27/22 10:30 85 19 93 07/27/22 16:00 90 07/27/22 11:48 90 07/27/22 10:04 90 26 H 96 07/27/22 08:30 105/63 07/27/22 08:30 87 27 H 90 07/27/22 08:15 113/65 07/27/22 08:15 85 24 90 Nasal Cannula 4 07/27/22 08:00 93 H 34 H 90 Nasal Cannula 4 07/27/22 08:00 130/77 07/27/22 07:45 125/61 07/27/22 07:45 89 22 92 Nasal Cannula 4 07/27/22 07:30 133/70 07/27/22 07:30 86 28 H 100 Nasal Cannula 4 07/27/22 07:15 96/60 L 07/27/22 07:15 85 26 H 96 Nasal Cannula 4 07/27/22 07:00 84 30 H 95 Nasal Cannula 4 07/27/22 07:00 113/77 07/27/22 06:45 85 28 H 100 Nasal Cannula 4 07/27/22 06:45 111/78 07/27/22 08:24 Nasal Cannula 4 07/27/22 08:00 82 07/27/22 06:30 82 27 H 98 07/27/22 06:30 111/59 L 07/27/22 06:00 85 27 H 86 L 07/27/22 05:30 76 23 93 07/27/22 05:00 82 25 H 85 L 07/27/22 05:00 110/61 07/27/22 04:30 87 28 H 87 L 07/27/22 04:30 110/71 Laboratory Results Laboratory Results - last 24 hr 07/26/22 07/26/22 07/26/22 16:36 16:43 17:15 WBC RBC Hgb Hct MCV MCH MCHC RDW Std Deviation RDW Coeff of Gordon Plt Count MPV Immature Gran % (Auto) Neut % (Auto) Lymph % (Auto) [place] % (Auto) Eos % (Auto) Baso % (Auto) Neut # (Auto) Lymph # (Auto) [place] # (Auto) Eos # (Auto) Baso # (Auto) Immature Gran # (Auto) PT INR APTT PTT Ratio Sodium 135 L Potassium 3.8 Chloride 96 L Carbon Dioxide 35 H Anion Gap 4 BUN 20 Creatinine 0.59 L Est Cr Clr Drug Dosing 83.3 Est GFR ( Amer) 121.4 Est GFR (Non-Af Amer) 104.8 BUN/Creatinine Ratio 33.9 H Glucose 114 H POC Glucose 121 H 134 H Lactate Calcium 7.7 L Phosphorus Magnesium 2.1 Urine Legionella Ag 07/26/22 07/26/22 07/26/22 17:15 18:30 18:30 WBC 10.37 RBC 2.89 L Hgb 8.5 L Hct 27.7 L MCV 95.8 MCH 29.4 MCHC 30.7 L RDW Std Deviation 55.8 H RDW Coeff of Gordon 15.8 H Plt Count 211 MPV 9.9 Immature Gran % (Auto) 0.4 Neut % (Auto) 85.9 Lymph % (Auto) 5.6 [place] % (Auto) 7.7 Eos % (Auto) 0.1 Baso % (Auto) 0.3 Neut # (Auto) 8.91 H Lymph # (Auto) 0.58 L [place] # (Auto) 0.80 Eos # (Auto) 0.01 Baso # (Auto) 0.03 Immature Gran # (Auto) 0.04 H PT 11.8 INR 1.1 APTT 32.8 H PTT Ratio 1.2 Sodium Potassium Chloride Carbon Dioxide Anion Gap BUN Creatinine Est Cr Clr Drug Dosing Est GFR ( Amer) Est GFR (Non-Af Amer) BUN/Creatinine Ratio Glucose POC Glucose Lactate 0.9 Calcium Phosphorus Magnesium Urine Legionella Ag 07/26/22 07/27/22 07/27/22 Unknown 00:12 04:48 WBC RBC Hgb Hct MCV MCH MCHC RDW Std Deviation RDW Coeff of Gordon Plt Count MPV Immature Gran % (Auto) Neut % (Auto) Lymph % (Auto) [place] % (Auto) Eos % (Auto) Baso % (Auto) Neut # (Auto) Lymph # (Auto) [place] # (Auto) Eos # (Auto) Baso # (Auto) Immature Gran # (Auto) PT INR APTT PTT Ratio Sodium 135 L Potassium 3.6 Chloride 93 L Carbon Dioxide 39 H Anion Gap 3 BUN 14 Creatinine 0.54 L Est Cr Clr Drug Dosing 91.1 Est GFR ( Amer) 125.9 Est GFR (Non-Af Amer) 108.6 BUN/Creatinine Ratio 25.9 H Glucose 100 H POC Glucose 120 H Lactate Calcium 8.3 L Phosphorus 2.7 Magnesium 1.9 Urine Legionella Ag SEE NOTE 07/27/22 07/27/22 07/27/22 04:48 07:46 11:32 WBC RBC Hgb Hct MCV MCH MCHC RDW Std Deviation RDW Coeff of Gordon Plt Count MPV Immature Gran % (Auto) Neut % (Auto) Lymph % (Auto) [place] % (Auto) Eos % (Auto) Baso % (Auto) Neut # (Auto) Lymph # (Auto) [place] # (Auto) Eos # (Auto) Baso # (Auto) Immature Gran # (Auto) PT INR APTT 57.2 H* PTT Ratio 2.1 Sodium Potassium Chloride Carbon Dioxide Anion Gap BUN Creatinine Est Cr Clr Drug Dosing Est GFR ( Amer) Est GFR (Non-Af Amer) BUN/Creatinine Ratio Glucose POC Glucose 101 H 110 H Lactate Calcium Phosphorus Magnesium Urine Legionella Ag 07/27/22 16:11 WBC RBC Hgb Hct MCV MCH MCHC RDW Std Deviation RDW Coeff of Gordon Plt Count MPV Immature Gran % (Auto) Neut % (Auto) Lymph % (Auto) [place] % (Auto) Eos % (Auto) Baso % (Auto) Neut # (Auto) Lymph # (Auto) [place] # (Auto) Eos # (Auto) Baso # (Auto) Immature Gran # (Auto) PT INR APTT PTT Ratio Sodium Potassium Chloride Carbon Dioxide Anion Gap BUN Creatinine Est Cr Clr Drug Dosing Est GFR ( Amer) Est GFR (Non-Af Amer) BUN/Creatinine Ratio Glucose POC Glucose 128 H Lactate Calcium Phosphorus Magnesium Urine Legionella Ag Medications Administered Current Inpatient Medications Acetazolamide (Acetazolamide 250 Mg Tab) 250 mg PO BID [facility] Stop: 07/28/22 21:01 Last Admin: 07/27/22 13:17 Dose: 250 mg Albuterol (Albuterol 0.083% Nebu Soln 3 Ml Vial) 1.25 mg INH Q4H PRN; Protocol PRN Reason: bronchospasm Stop: 08/23/22 18:17 Last Admin: 07/26/22 01:52 Dose: 2.5 mg Albuterol (Albuterol Hfa 8 Gm Inhaler) 2 puffs INH Q4H PRN PRN Reason: Shortness Of Breath Or Wheezing Stop: 08/23/22 18:17 Amiodarone HCl (Amiodarone 200 Mg Tab) 200 mg PO DAILY [facility] Stop: 08/24/22 08:59 Last Admin: 07/27/22 07:17 Dose: 200 mg Apixaban (Apixaban 5 Mg Tablet) 5 mg PO BID [facility] Stop: 08/26/22 20:59 Atorvastatin Calcium (Atorvastatin 40 Mg Tab) 80 mg PO DAILY [facility] Stop: 08/24/22 08:59 Last Admin: 07/27/22 07:17 Dose: 80 mg Clopidogrel Bisulfate (Clopidogrel Bisulfate 75 Mg Tab) 75 mg PO DAILY [facility] Stop: 08/24/22 08:59 Last Admin: 07/27/22 07:17 Dose: 75 mg Fluticasone/Vilanterol (Fluticasone/Vilanterol 100/25mcg 14 Puffs/Inhaler) 1 puffs INH DAILY [facility] Stop: 08/24/22 08:59 Last Admin: 07/27/22 07:17 Dose: 1 puffs Dobutamine HCl/Dextrose (Dobutamine / D5w) 500 mg in 250 mls @ 3.638 mls/hr IV .Q24H [facility]; Protocol Stop: 08/25/22 09:29 Last Titration: 07/27/22 16:04 Dose: 3 mcg/kg/min, 4.4 mls/hr Doxycycline Hyclate 100 mg/ (Dextrose) 110 mls @ 50 mls/hr IV Q12H [facility] Stop: 08/02/22 11:59 Last Infusion: 07/27/22 14:16 Dose: Infused Thiamine HCl 100 mg/ Syringe 10 mls @ 2 mls/min IV QAM [facility] Stop: 08/25/22 14:59 Last Admin: 07/27/22 07:23 Dose: 2 mls/min Miscellaneous (Icu Electrolyte Replacement Protocol) 1 each N/A BID@06,18 [facility]; Protocol Stop: 08/02/22 05:59 Last Admin: 07/27/22 16:03 Dose: Not Given Pantoprazole Sodium (Pantoprazole 40 Mg Tab) 40 mg PO DAILY [facility] Stop: 08/24/22 08:59 Last Admin: 07/27/22 07:17 Dose: 40 mg Umeclidinium [place] (Umeclidinium [place] 62.5mcg/Blister 7 Puffs/Inhaler) 1 puffs INH DAILY [facility] Stop: 08/24/22 08:59 Last Admin: 07/27/22 07:18 Dose: 1 puffs (1) CHF (congestive heart failure) Heart failure chronicity: acute on chronic Heart failure type: systolic Qualified Code(s): I50.23 - Acute on chronic systolic (congestive) heart failure (2) COPD (chronic obstructive pulmonary disease) COPD type: COPD with acute lower respiratory infection Qualified Code(s): J44.0 - Chronic obstructive pulmonary disease with (acute) lower respiratory infection
[2022-07-27] MEDS: APIXABAN 5 MG TABLET PO SCH (20:40)
[2022-07-28] MEDS: DOBUTamine / D5W 500 MG/250 ML BAG IV SCH (03:01)
[2022-07-28 04:28] LABS: BUN Creatinine Ratio 28.6 (10-20); Calcium 8.1 mg/dl (8.5-10.1); Creatinine Clr Calc Pharmacy 120.7 ml/min; Est GFR (African American) 139.6 ml/min; Est GFR (Non-African American) 120.5 ml/min; Phosphorus 2.3 mg/dl (2.5-4.9); Potassium 3.6 mmol/L (3.5-5.1)
[2022-07-28] MEDS: ICU ELECTROLYTE REPLACEMENT PROTOCOL SCH ×2 (04:37→18:36)
[2022-07-28 04:51] LABS: Basophils # (auto) 0.01 K/uL (0-0.2); Basophils % (auto) 0.1 %; Eosinophils # (auto) 0.04 K/uL (0-0.50); Eosinophils % (auto) 0.4 %; Hemoglobin 8.5 g/dl (14.0-18.0); Immature Granulocytes # (auto) 0.05 K/uL (0.01-0.20); Immature Granulocytes % (auto) 0.5 %; Lymphocytes # (auto) 0.75 K/uL (1.2-3.4); Lymphocytes % (auto) 7.8 %; Mean Corpuscular Hgb Conc 31.5 g/dL (32.0-36.0); Mean Corpuscular Volume 95.4 fL (80.0-100.0); Monocytes # (auto) 0.61 K/uL (0.11-0.59); Monocytes % (auto) 6.4 %; Neutrophils # (auto) 8.12 K/uL (1.40-6.50); Neutrophils % (auto) 84.8 %; Platelet Count 224 K/uL (130-400); RDW Coefficient of Variation 15.7 % (11.5-14.5); RDW Standard Deviation 55.2 fL (36.4-46.3); Red Blood Count 2.83 M/uL (4.70-6.10); White Blood Count 9.58 K/ul (4.8-10.8)
[2022-07-28] MEDS: POTASSIUM CHLORIDE CRTAB 20 MEQ TABCR PO SCH ×2 (05:04→09:12)
[2022-07-28] MEDS: MAGNESIUM OXIDE 400 MG TAB PO SCH ×2 (05:04→09:12)
[2022-07-28] MEDS: POT PHOSPHATE MONOBASIC W/ SOD TAB PO SCH ×3 (05:04→11:47)
--- NOTE | 2022-07-28 07:16 | Critical Care Progress Note ---
Date of Service July 28, 2022 Assessment & Plan (1) Acute respiratory failure with hypoxia and hypercapnia: Plan: Pt is a 66 yo male w/ PMH of multiple vessel CAD s/p stenting, COPD, DM, heart failure w/ reduced ejection fraction, and HTN presenting d/t increased SOB. Reason critically ill: heart failure exacerbation refractory to tx, previously requiring levophed and subsequent dobutamine GTT Neuro: - CAM ICU: negative - pt alert and oriented; no concerns at this time Cardiac: - hx of afib; NSR, hold eliquis anticoagulation but continue amiodarone - hx of CAD s/p multiple stents; elevated troponin originally, downtrended - hx of chronic heart failure w/ reduced ejection fraction and diastolic dysfunction - acute CHF exacerbation; pt's dobutamine weaned overnight, stopped this AM- BPs remain stable - acute metabolic alkalosis resolved after acetazolamide, d/c medication - echo 07/25 showed septal, inferior fall, and lateral wall hypokinesis w/ EF 35-40%, moderate pulmonary HTN, moderate to severe MR - additional 1.5L diuresis overnight, neg 6 L since admission. Continue to monitor urine output Respiratory: - hx of COPD tx w/ symbicort, spiriva, and albuterol at home - pt recently treated for pneumonia (d/c 07/15/2022) w/ cefuroxime and doxy - CXR 07/26/2022 no significant change from 07/24/2022 - neg for flu, RSV, COVID - doxy x5 days total added 07/26 to cover atypicals - continue breo, incruse, and albuterol PRN - respiratory status more likely to be a product of his heart failure rather than infection GI: - diet: low sodium, carb consistent, heart healthy, soft, bite sized - pantoprazole 40 mg daily Renal/electrolytes: - Mg 2.0- repleted 800 mg - K 3.6, P 2.3- repleted 40 meq KCl, 3 tabs potassium phosphate - Replace electrolytes as needed : - No concerns at this time - dutton in place Endo: - hx of DM, takes jardiance 10 mg at home; held while hospitalized - recent A1c 07/08/2022= 5.3% - Follow ICU hyperglycemic protocols Heme: - chronic iron deficiency anemia, takes iron supplementation at home - Hgb stable Lines/IV access: peripheral IV DVT ppx: anticoagulated d/t afib w/ eliquis 5 mg BID Pt doing well off dobutamine, stable for downgrade to PCU. Please refer to Dr. Arroyo's documentation for any further recommendations. (2) COPD (chronic obstructive pulmonary disease): (3) Elevated troponin: (4) Anemia: (5) Acute on chronic heart failure with reduced ejection fraction and diastolic dysfunction: Plan Patient seen and examined with resident physician. Agree with the assessment and plan aside for any additions/exceptions noted: Patient's metabolic alkalosis is improved with acetazolamide. We will discontinue acetazolamide at this time. He is perfusing well and we have weaned him off dobutamine. We will hold off on formal diuresis today and further diuresis will be deferred to cardiology and his primary team. His procalcitonin is trending downwards and is within normal limits at this time. He had mild hyponatremia noted on BMP this morning and repeat labs indicate improving sodium levels. Consider restarting Entresto in the coming days. Continue BiPAP at all times during sleep for chronic hypercapnic respiratory failure. Stable for downgrade to PCU status. CRITICAL CARE TIME - I have personally spent 33 minutes of critical care time in the direct management of this patient. This is a life/limb threatening event. This includes time spent evaluating patient, direct bedside care, chart review, placing orders, interpretation of diagnostic studies, discussion with consultants, patient, and family members, as well as other required patient management activities. This time is exclusive of all separately billable procedures, and teaching time and separate from and in addition to any other critical care service time. Admission and Anticipated Discharge Date Admission Date: July 24, 2022 Subjective Pt is a 66 yo male w/ PMH of multiple vessel CAD s/p stenting, COPD, DM, heart failure w/ reduced ejection fraction, and HTN presenting d/t increased SOB. Overnight pt was tachypneic and on/off BIPAP w/ saturation mostly in the 90s. No acute events. Pt seen at bedside this AM. Pt describes that he had a good night w/ good sleep. He does not feel that his respiratory status has worsened but he endorses that his breathing is not back to baseline. He stills feel as though it is hard to catch his breath. He denies any new symptoms of chest pain, abdominal pain, or leg pains. Review of Systems Review of Systems: All systems reviewed & are unremarkable except as noted in HPI & below Physical Exam Constitutional: Mild respiratory distress. BP improved. Tachypneic. O2 sat in 90s on BIPAP Neck: No thyromegaly. Trachea midline. Respiratory: Decreased breath sounds throughout. Course breath sounds heard. No wheezing or crackles appreciated. Mildly labored breathing w/ use of accessory muscles. Cardiovascular: Regular rhythm, mild tachycardia. No murmur noted. No LE edema. Psychiatric: Alert. Mood and affect congruent. Results & Data Results & Data ([facility]) Vital Signs (Past 12 Hours) Vital Signs Temp Pulse Resp BP Pulse Ox O2 Del Method FiO2 07/28/22 05:00 81 26 H 94 07/28/22 05:00 115/65 07/28/22 04:30 83 27 H 85 L 07/28/22 04:00 90 31 H 96 07/28/22 04:00 132/88 07/28/22 03:30 91 H 23 90 07/28/22 03:00 87 24 94 07/28/22 03:00 116/85 07/28/22 02:30 84 28 H 92 07/28/22 02:05 81 27 H 96 07/28/22 01:30 76 23 97 07/28/22 01:01 81 23 98 07/28/22 01:01 128/76 07/28/22 01:00 83 21 87 L 07/28/22 03:40 36.5 C 07/28/22 00:00 78 07/28/22 00:57 36.6 C 07/28/22 00:30 72 23 93 07/28/22 00:00 83 29 H 85 L 07/28/22 00:00 106/60 07/27/22 23:30 78 23 95 07/27/22 23:00 79 22 97 07/27/22 23:00 118/63 07/27/22 22:45 79 25 H 97 07/27/22 22:45 120/70 07/27/22 22:30 81 29 H 94 07/27/22 22:30 113/65 07/27/22 22:00 79 24 87 L 07/27/22 22:00 97/74 L 07/27/22 21:45 80 25 H 97 07/27/22 21:45 109/77 07/27/22 21:30 80 27 H 79 L 07/27/22 21:30 134/79 07/27/22 21:00 81 31 H 85 L 07/27/22 21:00 112/70 07/27/22 20:45 81 28 H 96 07/27/22 20:45 111/69 07/27/22 20:30 80 30 H 97 07/27/22 20:00 81 28 H 89 L 07/27/22 20:00 108/61 07/27/22 19:45 92/60 L 07/27/22 19:45 80 27 H 94 07/27/22 19:30 79 30 H 92 07/27/22 19:30 84/49 L 07/27/22 19:15 113/68 07/27/22 19:15 81 27 H 94 07/27/22 22:58 79 29 H 97 35 07/27/22 19:31 BiPAP 35 Resident Activity Tracking Resident Involvement: Resident Care Provided Care Provided: Adult Hospital Medicine (1) COPD (chronic obstructive pulmonary disease) COPD type: COPD with acute lower respiratory infection Qualified Code(s): J44.0 - Chronic obstructive pulmonary disease with (acute) lower respiratory infection
[2022-07-28] MEDS: ALBUTEROL 0.083% NEBU SOLN 3 ML VIAL INH PRN (07:21)
[2022-07-28] MEDS: AMIODARONE 200 MG TAB PO SCH (09:01)
[2022-07-28] MEDS: APIXABAN 5 MG TABLET PO SCH (09:02)
[2022-07-28] MEDS: ATORVASTATIN 40 MG TAB PO SCH (09:02)
[2022-07-28] MEDS: PANTOprazole 40 MG TAB PO SCH (09:02)
[2022-07-28] MEDS: CLOPIDOGREL BISULFATE 75 MG TAB PO SCH (09:02)
[2022-07-28] MEDS: UMECLIDINIUM BROMIDE 62.5MCG/BLISTER 7 PUFFS/INHALER INH SCH (09:02)
[2022-07-28] MEDS: FLUTICASONE/VILANTEROL 100/25MCG 14 PUFFS/INHALER INH SCH (09:03)
[2022-07-28] MEDS: THIAMINE HCL 100 MG in SYRINGE 9 ML IV SCH (09:04)
[2022-07-28 09:31] LABS: iSTAT Allen Test Pass; iSTAT Arterial Blood Gas HCO3 37 meg/L (19-24); iSTAT Arterial Blood Gas pCO2 50 mmHg (35-46); iSTAT Arterial Blood Gas pH 7.48 (7.35-7.45); iSTAT Arterial Blood Gas pO2 49 mmHg (80-95); iSTAT Carbon Dioxide 39 mmol/L (24-31); iSTAT Site R Radial
[2022-07-28 09:53] LABS: BUN Creatinine Ratio 30.2 (10-20); Calcium 8.2 mg/dl (8.5-10.1); Creatinine Clr Calc Pharmacy 117.9 ml/min; Est GFR (African American) 138.3 ml/min; Est GFR (Non-African American) 119.3 ml/min
[2022-07-28] MEDS: DOXYCYCLINE HYCLATE 100 MG in DEXTROSE 5% 100 ML IV SCH (11:46)
--- NOTE | 2022-07-28 12:47 | Billing Data ---
Date of Service July 28, 2022 Coding Level of Care Code Critical Care 1st 30-74 mins Time Spent (min) 33
--- NOTE | 2022-07-28 12:51 | Communication Note ---
Date of Service: July 28, 2022 Palliative Med Brief Note Ed does not desire ongoing pall med engagement, so we will sign off for now but remain available for urgent re engagement if needed. I have discussed his case with the Assistant Speech Language Pathologist as well, and hope that a non medical entity may help Ed be more willing to explore the deeper issues of his advanced illness and implications thereof. No charge submitted. Diana Collins DNP Clinical Director, Palliative Medicine
--- NOTE | 2022-07-28 13:05 | Hospitalist Progress Note ---
Date of Service July 28, 2022 Assessment & Plan (1) Respiratory failure with hypoxia and hypercapnia: Plan: Secondary to heart failure exacerbation. Intermittent BiPAP required and remains hypoxic and tachypneic. Further diuresis on hold given metabolic alkalosis. He has a history of COPD on Symbicort Spiriva and albuterol at home. He was recently treated for pneumonia with cefuroxime and doxycycline. There was no significant change on chest x-ray on admission and he had a leukocytosis so was improved on doxycycline which is being continued. The general consensus among specialists is that his respiratory status is more likely a product of his heart failure rather than any infection. Continue pulmonary toilet and support as needed. (2) Acute on chronic heart failure with reduced ejection fraction and diastolic dysfunction: Plan: He is a history of cardiogenic shock/ NSTEMI in the last couple of months and ischemic cardiomyopathy. He is in atrial fibrillation anticoagulated on Eliquis. Cardiology is on board and he is currently on a dobutamine drip. We are continuing to hold Entresto. He continues on amiodarone per home dose. Lasix has been held at this point and acetazolamide is being given for a few doses to treat metabolic alkalosis. Of note, he is not a diabetic as previously documented, and is on Jardiance for the CV mortality benefit in heart failure. Discussed this with primary RN who is only doing one glucose check on him daily per ICU protocol. (3) Hypomagnesemia: Plan: Repleted. (4) Metabolic alkalosis: Plan: resolved, acetazolamide stopped. Cont to hold on Lasix until cardiology feels this is appropriate. Will trend daily labs. (5) CAD (coronary artery disease): Plan: 05/31/2022: NSTEMI, cardiogenic shock. S/p cardiac cath which showed severe multivessel CAD and was transferred to [facility] [place]. Had multivessel PCI at [facility] [place]. On atorvastatin, Plavix. No chest pain or active ACS at this time. Continue current medication. (6) Paroxysmal atrial fibrillation: Plan: Currently in sinus rhythm, continue amiodarone Eliquis as noted above. (7) COPD (chronic obstructive pulmonary disease): Plan: Chronic, stable. Continue home inhaler therapy. (8) Anemia: Plan: H/H has fallen since Jun 2022 ( 14.4/42 --> 8.5/27). No overt bleeding but has had hospitalizations and procedures which may have contributed to some acute blood loss issues through procedures and phlebotomy. This may be contributing to his shortness of breath/hypoxia to a certain extent. Iron studies, ferritin, B12 and folate and peripheral smear ordered to start the workup. Will discuss pros and cons of blood with cardiology and patient. DVT Prophylaxis On Eliquis Disposition ICU Full Code DO [facility] hospitalist Admission and Anticipated Discharge Date Admission Date: July 24, 2022 Subjective Pt is a 66 yo male w/ PMH of multiple vessel CAD s/p stenting, COPD, DM, heart failure w/ reduced ejection fraction, and HTN presenting d/t increased SOB. Overnight pt was tachypneic and on/off BIPAP w/ saturation mostly in the 90s. He reports feeling acutely more short of breath this morning. States that he feels he is getting a cold but cannot elaborate why. He skipped breakfast refusing to come off the BIPAP because of the persistent tachypnea. He was able to come off only briefly to take am meds then right back on again per nurse. He doesn't have a BIPAP or TRelogy machine at home and is interested in getting one. Review of Systems Review of Systems: All systems are reviewed negative except as indicated abov e. Physical Exam Physical Exam: CONSTITUTIONAL: WNWD, vitals as above, NAD EYES: normal conjunctivae, no scleral icterus, ENT: external ear and nose normal, NECK: trachea midline, RESPIRATORY: fine crackles throughout but concentrated in bases of lungs bilaterally, increased respiratory effort at rest CARDIOVASCULAR: regular rate and rhythm, S1 and 2 heard without murmurs, gallops or rubs, no JVD, no peripheral edema CHEST: well healing incision in the right anterior chest wall GASTROINTESTINAL: soft, nontender, ND no guarding MUSCULOSKELETAL: strength 5/5 throughout, head is normocephalic and atraumatic, SKIN: warm and dry, NEUROLOGIC: CN 2-12 grossly intact, no sensory deficit, normal cognition, normal speech, no tremor PSYCHIATRIC: alert cooperative and oriented to person, place and time. Euthymic mood, makes good eye contact, language grossly intact, recent and remote memory grossly intact. Results & Data Results & Data ([facility]) Vital Signs (Past 12 Hours) Vital Signs Temp Pulse Pulse Resp BP BP Pulse Ox 07/28/22 12:01 121/56 L 07/28/22 12:00 92 H 23 95 07/28/22 11:00 80 26 H 100 07/28/22 11:00 130/64 07/28/22 10:00 82 32 H 98 07/28/22 09:30 83 21 92 07/28/22 09:29 83 30 H 89 L 07/28/22 09:29 134/79 07/28/22 09:01 110/79 07/28/22 09:00 82 26 H 92 07/28/22 08:30 87 29 H 96 07/28/22 08:00 94 H 28 H 94 07/28/22 08:00 134/87 07/28/22 07:30 96 H 28 H 98 07/28/22 07:00 91 H 24 95 07/28/22 10:05 83 30 H 96 07/28/22 08:05 07/28/22 08:00 07/28/22 08:00 92 H 07/28/22 07:30 37.1 C 95 H 27 H 130/77 97 07/28/22 07:37 92 H 38 H 90 07/28/22 07:22 92 H 24 91 07/28/22 05:00 81 26 H 94 07/28/22 05:00 115/65 07/28/22 04:30 83 27 H 85 L 07/28/22 04:00 90 31 H 96 07/28/22 04:00 132/88 07/28/22 03:30 91 H 23 90 07/28/22 03:00 87 24 94 07/28/22 03:00 116/85 07/28/22 02:30 84 28 H 92 07/28/22 02:05 81 27 H 96 07/28/22 01:30 76 23 97 07/28/22 01:01 81 23 98 07/28/22 01:01 128/76 07/28/22 01:00 83 21 87 L 07/28/22 03:40 36.5 C 07/28/22 00:57 36.6 C O2 Del Method O2 Flow Rate FiO2 07/28/22 12:01 07/28/22 12:00 07/28/22 11:00 07/28/22 11:00 07/28/22 10:00 07/28/22 09:30 07/28/22 09:29 07/28/22 09:29 07/28/22 09:01 07/28/22 09:00 07/28/22 08:30 07/28/22 08:00 07/28/22 08:00 07/28/22 07:30 07/28/22 07:00 07/28/22 10:05 35 07/28/22 08:05 BiPAP 35 07/28/22 08:00 BiPAP 35 07/28/22 08:00 07/28/22 07:30 Nasal Cannula 4 07/28/22 07:37 35 07/28/22 07:22 Nasal Cannula 4 07/28/22 05:00 07/28/22 05:00 07/28/22 04:30 07/28/22 04:00 07/28/22 04:00 07/28/22 03:30 07/28/22 03:00 07/28/22 03:00 07/28/22 02:30 07/28/22 02:05 07/28/22 01:30 07/28/22 01:01 07/28/22 01:01 07/28/22 01:00 07/28/22 03:40 07/28/22 00:57 Laboratory Results Short CBC 07/28/22 Range/Units 03:55 WBC 9.58 (4.8-10.8) K/ul Hgb 8.5 L (14.0-18.0) g/dl Hct 27.0 L (42.0-52.0) % Plt Count 224 (130-400) K/uL [facility] 07/28/22 07/28/22 03:55 09:07 Sodium 131 L 133 L Potassium 3.6 4.0 Chloride 97 L 98 Carbon Dioxide 29 30 BUN 12 13 Creatinine 0.42 L 0.43 L Glucose 94 100 H Calcium 8.1 L 8.2 L Medications Administered Current Inpatient Medications Albuterol (Albuterol 0.083% Nebu Soln 3 Ml Vial) 1.25 mg INH Q4H PRN; Protocol PRN Reason: bronchospasm Stop: 08/23/22 18:17 Last Admin: 07/28/22 07:21 Dose: 1.25 mg Albuterol (Albuterol Hfa 8 Gm Inhaler) 2 puffs INH Q4H PRN PRN Reason: Shortness Of Breath Or Wheezing Stop: 08/23/22 18:17 Amiodarone HCl (Amiodarone 200 Mg Tab) 200 mg PO DAILY [facility] Stop: 08/24/22 08:59 Last Admin: 07/28/22 09:01 Dose: 200 mg Apixaban (Apixaban 5 Mg Tablet) 5 mg PO BID [facility] Stop: 08/26/22 20:59 Last Admin: 07/28/22 09:02 Dose: 5 mg Atorvastatin Calcium (Atorvastatin 40 Mg Tab) 80 mg PO DAILY [facility] Stop: 08/24/22 08:59 Last Admin: 07/28/22 09:02 Dose: 80 mg Clopidogrel Bisulfate (Clopidogrel Bisulfate 75 Mg Tab) 75 mg PO DAILY [facility] Stop: 08/24/22 08:59 Last Admin: 07/28/22 09:02 Dose: 75 mg Fluticasone/Vilanterol (Fluticasone/Vilanterol 100/25mcg 14 Puffs/Inhaler) 1 puffs INH DAILY [facility] Stop: 08/24/22 08:59 Last Admin: 07/28/22 09:03 Dose: 1 puffs Doxycycline Hyclate 100 mg/ (Dextrose) 110 mls @ 50 mls/hr IV Q12H [facility] Stop: 08/02/22 11:59 Last Admin: 07/28/22 11:46 Dose: 50 mls/hr Miscellaneous (Icu Electrolyte Replacement Protocol) 1 each N/A BID@06,18 FRANCOIS; Protocol Stop: 08/02/22 05:59 Last Admin: 07/28/22 04:37 Dose: 1 each Pantoprazole Sodium (Pantoprazole 40 Mg Tab) 40 mg PO DAILY [facility] Stop: 08/24/22 08:59 Last Admin: 07/28/22 09:02 Dose: 40 mg Thiamine HCl (Thiamine Hcl 100 Mg Tab) 100 mg PO DAILY [facility] Stop: 08/28/22 08:59 Umeclidinium [place] (Umeclidinium [place] 62.5mcg/Blister 7 Puffs/Inhaler) 1 puffs INH DAILY [facility] Stop: 08/24/22 08:59 Last Admin: 07/28/22 09:02 Dose: 1 puffs (1) Respiratory failure with hypoxia and hypercapnia Chronicity: acute on chronic Qualified Code(s): J96.21 - Acute and chronic respiratory failure with hypoxia; J96.22 - Acute and chronic respiratory failure with hypercapnia; J96.22 - Acute and chronic respiratory failure with hypercapnia
--- NOTE | 2022-07-28 15:25 | Cardiology Progress Note ---
Date of Service July 28, 2022 Assessment & Plan (1) Acute respiratory failure with hypoxia and hypercapnia: (2) Elevated troponin: (3) COPD (chronic obstructive pulmonary disease): (4) CHF (congestive heart failure): (5) CAD (coronary artery disease): (6) Heart failure with reduced ejection fraction: Plan The patient is completely off of dobutamine and stable. He still requires intermittent BiPAP but overall is doing better and had a large diuresis again over the past 24 hours. I think he could be transferred to the PCU pending bed availability. Admission and Anticipated Discharge Date Admission Date: July 24, 2022 Subjective Patient with no new complaints. Completely off of dobutamine. Still requiring BiPAP intermittently Review of Systems Review of Systems: Not obtainable Physical Exam 2 Physical Exam: General: On BiPAP and looks comfortable Head: normocephalic, no masses, lesions, tenderness or abnormalities Eyes: conjunctiva are pink and non-injected, sclera clear Neck: supple, no adenopathy, no bruits, normal jugular venous pulse, no hepatojugular reflux Chest: normal shape and normal respiratory effort Lungs: clear to auscultation and percussion Cardiac Exam: - regular rate & rhythm, no murmurs gallops or rubs - normal S1, normal S2 Pulses: 2(+) throughout Abdomen: abdomen soft, non-tender, no abnormal masses and no hepatosplenomegaly Musculoskeletal: no gait disturbance, no joint inflammation, no deforming arthritis Extremities: no edema and no cyanosis Neuro: grossly normal exam Results & Data ([facility]) Vital Signs (Past 12 Hours) Vital Signs Temp Pulse Pulse Resp BP BP Pulse Ox 07/28/22 15:00 87 32 H 131/90 90 07/28/22 14:00 88 28 H 119/76 90 07/28/22 13:00 82 34 H 99 07/28/22 13:00 106/74 07/28/22 12:02 88 32 H 96 07/28/22 12:01 121/56 L 07/28/22 12:00 92 H 23 95 07/28/22 11:00 80 26 H 100 07/28/22 11:00 130/64 07/28/22 10:00 82 32 H 98 07/28/22 09:30 83 21 92 07/28/22 09:29 83 30 H 89 L 07/28/22 09:29 134/79 07/28/22 09:01 110/79 07/28/22 09:00 82 26 H 92 07/28/22 08:30 87 29 H 96 07/28/22 08:00 94 H 28 H 94 07/28/22 08:00 134/87 07/28/22 07:30 96 H 28 H 98 07/28/22 07:00 91 H 24 95 07/28/22 10:05 83 30 H 96 07/28/22 08:05 07/28/22 08:00 07/28/22 08:00 92 H 07/28/22 07:30 37.1 C 95 H 27 H 130/77 97 07/28/22 07:37 92 H 38 H 90 07/28/22 07:22 92 H 24 91 07/28/22 05:00 81 26 H 94 07/28/22 05:00 115/65 07/28/22 04:30 83 27 H 85 L 07/28/22 04:00 90 31 H 96 07/28/22 04:00 132/88 07/28/22 03:30 91 H 23 90 07/28/22 03:40 36.5 C O2 Del Method O2 Flow Rate FiO2 07/28/22 15:00 07/28/22 14:00 07/28/22 13:00 07/28/22 13:00 07/28/22 12:02 07/28/22 12:01 07/28/22 12:00 07/28/22 11:00 07/28/22 11:00 07/28/22 10:00 07/28/22 09:30 07/28/22 09:29 07/28/22 09:29 07/28/22 09:01 07/28/22 09:00 07/28/22 08:30 07/28/22 08:00 07/28/22 08:00 07/28/22 07:30 07/28/22 07:00 07/28/22 10:05 35 07/28/22 08:05 BiPAP 35 07/28/22 08:00 BiPAP 35 07/28/22 08:00 07/28/22 07:30 Nasal Cannula 4 07/28/22 07:37 35 07/28/22 07:22 Nasal Cannula 4 07/28/22 05:00 07/28/22 05:00 07/28/22 04:30 07/28/22 04:00 07/28/22 04:00 07/28/22 03:30 07/28/22 03:40 Laboratory Results Laboratory Results - last 24 hr 07/27/22 07/27/22 07/28/22 10:08 16:11 03:55 WBC RBC Hgb Hct MCV MCH MCHC RDW Std Deviation RDW Coeff of Gordon Plt Count MPV Immature Gran % (Auto) Neut % (Auto) Lymph % (Auto) [place] % (Auto) Eos % (Auto) Baso % (Auto) Neut # (Auto) Lymph # (Auto) [place] # (Auto) Eos # (Auto) Baso # (Auto) Immature Gran # (Auto) Peripher Smr Path Cons Sample Site R Radial POC pH 7.48 H POC pCO2 50 H POC pO2 49 L POC HCO3 37 H POC Total CO2 39 H POC Base Excess 14.0 H POC ABG O2 Sat 86.0 L Horace Test Pass O2 Delivery Device Cannula Sodium 131 L Potassium 3.6 Chloride 97 L Carbon Dioxide 29 Anion Gap 5 BUN 12 Creatinine 0.42 L Est Cr Clr Drug Dosing 120.7 Est GFR ( Amer) 139.6 Est GFR (Non-Af Amer) 120.5 BUN/Creatinine Ratio 28.6 H Glucose 94 POC Glucose 128 H Calcium 8.1 L Phosphorus 2.3 L Magnesium 2.0 Procalcitonin 07/28/22 07/28/22 07/28/22 03:55 03:55 09:07 WBC 9.58 RBC 2.83 L Hgb 8.5 L Hct 27.0 L MCV 95.4 MCH 30.0 MCHC 31.5 L RDW Std Deviation 55.2 H RDW Coeff of Gordon 15.7 H Plt Count 224 MPV 10.0 Immature Gran % (Auto) 0.5 Neut % (Auto) 84.8 Lymph % (Auto) 7.8 [place] % (Auto) 6.4 Eos % (Auto) 0.4 Baso % (Auto) 0.1 Neut # (Auto) 8.12 H Lymph # (Auto) 0.75 L [place] # (Auto) 0.61 H Eos # (Auto) 0.04 Baso # (Auto) 0.01 Immature Gran # (Auto) 0.05 Peripher Smr Path Cons Pending Sample Site POC pH POC pCO2 POC pO2 POC HCO3 POC Total CO2 POC Base Excess POC ABG O2 Sat Horace Test O2 Delivery Device Sodium 133 L Potassium 4.0 Chloride 98 Carbon Dioxide 30 Anion Gap 5 BUN 13 Creatinine 0.43 L Est Cr Clr Drug Dosing 117.9 Est GFR ( Amer) 138.3 Est GFR (Non-Af Amer) 119.3 BUN/Creatinine Ratio 30.2 H Glucose 100 H POC Glucose Calcium 8.2 L Phosphorus Magnesium Procalcitonin 07/28/22 09:07 WBC RBC Hgb Hct MCV MCH MCHC RDW Std Deviation RDW Coeff of Gordon Plt Count MPV Immature Gran % (Auto) Neut % (Auto) Lymph % (Auto) [place] % (Auto) Eos % (Auto) Baso % (Auto) Neut # (Auto) Lymph # (Auto) [place] # (Auto) Eos # (Auto) Baso # (Auto) Immature Gran # (Auto) Peripher Smr Path Cons Sample Site POC pH POC pCO2 POC pO2 POC HCO3 POC Total CO2 POC Base Excess POC ABG O2 Sat Horace Test O2 Delivery Device Sodium Potassium Chloride Carbon Dioxide Anion Gap BUN Creatinine Est Cr Clr Drug Dosing Est GFR ( Amer) Est GFR (Non-Af Amer) BUN/Creatinine Ratio Glucose POC Glucose Calcium Phosphorus Magnesium Procalcitonin 0.20 Medications Administered Current Inpatient Medications Albuterol (Albuterol 0.083% Nebu Soln 3 Ml Vial) 1.25 mg INH Q4H PRN; Protocol PRN Reason: bronchospasm Stop: 08/23/22 18:17 Last Admin: 07/28/22 07:21 Dose: 1.25 mg Albuterol (Albuterol Hfa 8 Gm Inhaler) 2 puffs INH Q4H PRN PRN Reason: Shortness Of Breath Or Wheezing Stop: 08/23/22 18:17 Amiodarone HCl (Amiodarone 200 Mg Tab) 200 mg PO DAILY [facility] Stop: 08/24/22 08:59 Last Admin: 07/28/22 09:01 Dose: 200 mg Apixaban (Apixaban 5 Mg Tablet) 5 mg PO BID [facility] Stop: 08/26/22 20:59 Last Admin: 07/28/22 09:02 Dose: 5 mg Atorvastatin Calcium (Atorvastatin 40 Mg Tab) 80 mg PO DAILY [facility] Stop: 08/24/22 08:59 Last Admin: 07/28/22 09:02 Dose: 80 mg Clopidogrel Bisulfate (Clopidogrel Bisulfate 75 Mg Tab) 75 mg PO DAILY [facility] Stop: 08/24/22 08:59 Last Admin: 07/28/22 09:02 Dose: 75 mg Fluticasone/Vilanterol (Fluticasone/Vilanterol 100/25mcg 14 Puffs/Inhaler) 1 puffs INH DAILY [facility] Stop: 08/24/22 08:59 Last Admin: 07/28/22 09:03 Dose: 1 puffs Doxycycline Hyclate 100 mg/ (Dextrose) 110 mls @ 50 mls/hr IV Q12H [facility] Stop: 08/02/22 11:59 Last Infusion: 07/28/22 14:06 Dose: Infused Miscellaneous (Icu Electrolyte Replacement Protocol) 1 each N/A BID@06,18 [facility]; Protocol Stop: 08/02/22 05:59 Last Admin: 07/28/22 04:37 Dose: 1 each Pantoprazole Sodium (Pantoprazole 40 Mg Tab) 40 mg PO DAILY [facility] Stop: 08/24/22 08:59 Last Admin: 07/28/22 09:02 Dose: 40 mg Thiamine HCl (Thiamine Hcl 100 Mg Tab) 100 mg PO DAILY [facility] Stop: 08/28/22 08:59 Umeclidinium [place] (Umeclidinium [place] 62.5mcg/Blister 7 Puffs/Inhaler) 1 puffs INH DAILY [facility] Stop: 08/24/22 08:59 Last Admin: 07/28/22 09:02 Dose: 1 puffs (1) CHF (congestive heart failure) Heart failure chronicity: acute on chronic Heart failure type: systolic Qualified Code(s): I50.23 - Acute on chronic systolic (congestive) heart failure (2) COPD (chronic obstructive pulmonary disease) COPD type: COPD with acute lower respiratory infection Qualified Code(s): J44.0 - Chronic obstructive pulmonary disease with (acute) lower respiratory infection
[2022-07-28] MEDS ORDERED: FUROSEMIDE 40 MG/4 ML VIAL IV ONE (17:30)
[2022-07-29] MEDS: DOXYCYCLINE HYCLATE 100 MG in DEXTROSE 5% 100 ML IV SCH ×3 (00:04→23:40)
[2022-07-29 04:48] LABS: Hematocrit (blood only) 26.9 % (42.0-52.0); Hemoglobin 8.5 g/dl (14.0-18.0); Mean Corpuscular Hemoglobin 29.9 pg (25.0-34.0); Mean Corpuscular Hgb Conc 31.6 g/dL (32.0-36.0); Mean Corpuscular Volume 94.7 fL (80.0-100.0); Mean Platelet Volume 9.9 fL (9.4-12.4); Platelet Count 260 K/uL (130-400); RDW Coefficient of Variation 15.6 % (11.5-14.5); RDW Standard Deviation 54.6 fL (36.4-46.3); Red Blood Count 2.84 M/uL (4.70-6.10); White Blood Count 8.06 K/ul (4.8-10.8)
[2022-07-29 05:04] LABS: Calcium 8.5 mg/dl (8.5-10.1); Magnesium 1.8 mg/dl (1.7-2.4)
[2022-07-29 05:09] LABS: BUN Creatinine Ratio 30.8 (10-20); Est GFR (African American) 143.9 ml/min; Est GFR (Non-African American) 124.2 ml/min; Phosphorus 2.2 mg/dl (2.5-4.9)
[2022-07-29] MEDS: ICU ELECTROLYTE REPLACEMENT PROTOCOL SCH ×2 (05:16→18:17)
[2022-07-29] MEDS ORDERED: SODIUM PHOSPHATE 3 MMOL/1 ML INFUSION IV STA (05:25)
[2022-07-29 05:28] LABS: Ferritin 825.9 ng/ml (8-388)
[2022-07-29] MEDS ORDERED: SODIUM PHOSPHATE 15 MMOL in SODIUM CHLORIDE 0.9% 250 ML IV ONE (05:45)
[2022-07-29] MEDS: MAGNESIUM SULFATE / D5W 1 GM/100 ML BAG IV SCH ×2 (05:50→08:02)
[2022-07-29] MEDS: FLUTICASONE/VILANTEROL 100/25MCG 14 PUFFS/INHALER INH SCH (08:05)
[2022-07-29] MEDS: THIAMINE HCL 100 MG TAB PO SCH (08:05)
[2022-07-29] MEDS: UMECLIDINIUM BROMIDE 62.5MCG/BLISTER 7 PUFFS/INHALER INH SCH (08:05)
[2022-07-29] MEDS: ATORVASTATIN 40 MG TAB PO SCH (08:06)
[2022-07-29] MEDS: CLOPIDOGREL BISULFATE 75 MG TAB PO SCH (08:06)
[2022-07-29] MEDS: AMIODARONE 200 MG TAB PO SCH (08:06)
[2022-07-29] MEDS: PANTOprazole 40 MG TAB PO SCH (08:06)
--- NOTE | 2022-07-29 09:43 | Cardiology Progress Note ---
Date of Service July 29, 2022 Assessment & Plan (1) Acute respiratory failure with hypoxia and hypercapnia: (2) Elevated troponin: (3) COPD (chronic obstructive pulmonary disease): (4) CHF (congestive heart failure): (5) CAD (coronary artery disease): (6) Heart failure with reduced ejection fraction: Plan The patient's hemoglobin today is 8.5. This is a patient that may benefit from a transfusion sooner than later. Otherwise he is status quo. Ultimately he may need long-term placement. Admission and Anticipated Discharge Date Admission Date: July 24, 2022 Subjective The patient is status quo. He is still using his BiPAP intermittently. Off of dobutamine. Review of Systems Review of Systems: Not obtainable Physical Exam Physical Exam: General: On BiPAP and looks comfortable Head: normocephalic, no masses, lesions, tenderness or abnormalities Eyes: conjunctiva are pink and non-injected, sclera clear Neck: supple, no adenopathy, no bruits, normal jugular venous pulse, no hepatojugular reflux Chest: normal shape and normal respiratory effort Lungs: clear to auscultation and percussion Cardiac Exam: - regular rate & rhythm, no murmurs gallops or rubs - normal S1, normal S2 Pulses: 2(+) throughout Abdomen: abdomen soft, non-tender, no abnormal masses and no hepatosplenomegaly Musculoskeletal: no gait disturbance, no joint inflammation, no deforming arthritis Extremities: no edema and no cyanosis Neuro: grossly normal exam Results & Data ([facility]) Vital Signs (Past 12 Hours) Vital Signs Temp Pulse Resp BP Pulse Ox O2 Del Method O2 Flow Rate 07/29/22 08:30 93 H 33 H 144/89 H 97 07/29/22 08:00 98 H 37 H 94 07/29/22 07:00 95 H 25 H 93 07/29/22 08:40 BiPAP 07/29/22 07:22 103 H 34 H 96 07/29/22 05:00 75 25 H 96 07/29/22 04:00 78 28 H 91 07/29/22 04:00 102/57 L 07/29/22 03:00 78 28 H 94 07/29/22 04:00 36.7 C 07/29/22 00:00 36.8 C 07/29/22 02:00 78 20 96 07/29/22 02:00 101/65 07/29/22 01:00 81 20 93 BiPAP 07/29/22 01:00 111/58 L 07/29/22 00:00 83 20 07/29/22 00:00 104/64 07/29/22 00:57 85 22 95 07/28/22 23:19 89 07/28/22 23:00 89 32 H 121/71 95 Nasal Cannula 4 07/28/22 22:00 83 26 H 98 FiO2 07/29/22 08:30 07/29/22 08:00 07/29/22 07:00 07/29/22 08:40 0.45 07/29/22 07:22 40 07/29/22 05:00 07/29/22 04:00 07/29/22 04:00 07/29/22 03:00 07/29/22 04:00 07/29/22 00:00 07/29/22 02:00 07/29/22 02:00 07/29/22 01:00 30 07/29/22 01:00 07/29/22 00:00 07/29/22 00:00 07/29/22 00:57 30 07/28/22 23:19 07/28/22 23:00 07/28/22 22:00 Laboratory Results Laboratory Results - last 24 hr 07/28/22 07/28/22 07/28/22 03:55 09:07 09:07 WBC RBC Hgb Hct MCV MCH MCHC RDW Std Deviation RDW Coeff of Gordon Plt Count MPV Peripher Smr Path Cons Sodium 133 L Potassium 4.0 Chloride 98 Carbon Dioxide 30 Anion Gap 5 BUN 13 Creatinine 0.43 L Est Cr Clr Drug Dosing 117.9 Est GFR ( Amer) 138.3 Est GFR (Non-Af Amer) 119.3 BUN/Creatinine Ratio 30.2 H Glucose 100 H Calcium 8.2 L Phosphorus Magnesium Iron Ferritin B-Natriuretic Peptide Vitamin B12 Folate Procalcitonin 0.20 07/29/22 07/29/22 07/29/22 04:23 04:23 04:23 WBC 8.06 RBC 2.84 L Hgb 8.5 L Hct 26.9 L MCV 94.7 MCH 29.9 MCHC 31.6 L RDW Std Deviation 54.6 H RDW Coeff of Gordon 15.6 H Plt Count 260 MPV 9.9 Peripher Smr Path Cons Sodium 135 L Potassium 4.0 Chloride 98 Carbon Dioxide 32 Anion Gap 5 BUN 12 Creatinine 0.39 L Est Cr Clr Drug Dosing 130.0 Est GFR ( Amer) 143.9 Est GFR (Non-Af Amer) 124.2 BUN/Creatinine Ratio 30.8 H Glucose 74 Calcium 8.5 Phosphorus 2.2 L Magnesium 1.8 Iron 38 Ferritin 825.9 H B-Natriuretic Peptide 2135 H Vitamin B12 Folate Procalcitonin 07/29/22 04:23 WBC RBC Hgb Hct MCV MCH MCHC RDW Std Deviation RDW Coeff of Gordon Plt Count MPV Peripher Smr Path Cons Sodium Potassium Chloride Carbon Dioxide Anion Gap BUN Creatinine Est Cr Clr Drug Dosing Est GFR ( Amer) Est GFR (Non-Af Amer) BUN/Creatinine Ratio Glucose Calcium Phosphorus Magnesium Iron Ferritin B-Natriuretic Peptide Vitamin B12 308 Folate 9.18 Procalcitonin Medications Administered Current Inpatient Medications Albuterol (Albuterol 0.083% Nebu Soln 3 Ml Vial) 1.25 mg INH Q4H PRN; Protocol PRN Reason: bronchospasm Stop: 08/23/22 18:17 Last Admin: 07/28/22 07:21 Dose: 1.25 mg Albuterol (Albuterol Hfa 8 Gm Inhaler) 2 puffs INH Q4H PRN PRN Reason: Shortness Of Breath Or Wheezing Stop: 08/23/22 18:17 Amiodarone HCl (Amiodarone 200 Mg Tab) 200 mg PO DAILY [facility] Stop: 08/24/22 08:59 Last Admin: 07/29/22 08:06 Dose: 200 mg Apixaban (Apixaban 5 Mg Tablet) 5 mg PO BID [facility] Stop: 08/26/22 20:59 Last Admin: 07/28/22 09:02 Dose: 5 mg Atorvastatin Calcium (Atorvastatin 40 Mg Tab) 80 mg PO DAILY [facility] Stop: 08/24/22 08:59 Last Admin: 07/29/22 08:06 Dose: 80 mg Clopidogrel Bisulfate (Clopidogrel Bisulfate 75 Mg Tab) 75 mg PO DAILY [facility] Stop: 08/24/22 08:59 Last Admin: 07/29/22 08:06 Dose: 75 mg Fluticasone/Vilanterol (Fluticasone/Vilanterol 100/25mcg 14 Puffs/Inhaler) 1 puffs INH DAILY [facility] Stop: 08/24/22 08:59 Last Admin: 07/29/22 08:05 Dose: 1 puffs Doxycycline Hyclate 100 mg/ (Dextrose) 110 mls @ 50 mls/hr IV Q12H [facility] Stop: 08/02/22 11:59 Last Infusion: 07/29/22 01:16 Dose: Infused Miscellaneous (Icu Electrolyte Replacement Protocol) 1 each N/A BID@06,18 [facility]; Protocol Stop: 08/02/22 05:59 Last Admin: 07/29/22 05:16 Dose: 1 each Pantoprazole Sodium (Pantoprazole 40 Mg Tab) 40 mg PO DAILY [facility] Stop: 08/24/22 08:59 Last Admin: 07/29/22 08:06 Dose: 40 mg Thiamine HCl (Thiamine Hcl 100 Mg Tab) 100 mg PO DAILY [facility] Stop: 08/28/22 08:59 Last Admin: 07/29/22 08:05 Dose: 100 mg Umeclidinium [place] (Umeclidinium [place] 62.5mcg/Blister 7 Puffs/Inhaler) 1 puffs INH DAILY [facility] Stop: 08/24/22 08:59 Last Admin: 07/29/22 08:05 Dose: 1 puffs (1) COPD (chronic obstructive pulmonary disease) COPD type: COPD with acute lower respiratory infection Qualified Code(s): J44.0 - Chronic obstructive pulmonary disease with (acute) lower respiratory infection (2) CHF (congestive heart failure) Heart failure chronicity: acute on chronic Heart failure type: systolic Qualified Code(s): I50.23 - Acute on chronic systolic (congestive) heart failure
[2022-07-29] MEDS: APIXABAN 5 MG TABLET PO SCH ×2 (10:08→19:57)
[2022-07-29] MEDS ORDERED: SODIUM CHLORIDE 0.9% 250 ML IV PRN (11:03)
--- NOTE | 2022-07-29 11:24 | XRay Report ---
XR chest 1V portable HISTORY: persistent dyspnea, hypoxia COMPARISON: Chest 07/26/2022. FINDINGS: No pneumothorax. The heart remains mildly enlarged. Calcified thoracic aorta. Moderate pulm onary edema has slightly progressed. Small bilateral pleural effusions are again noted. Patchy right lower lobe airspace opacity has progressed. This likely represents a component of the pulmonary edema . A superimposed pneumonia would be occult to exclude. Surgical clips again noted within the right up per chest. IMPRESSION: 1. Interval progression of the pulmonary edema. 2. Small bilateral pleural effusions persist. 3. Right lower lobe patchy airspace opacity has progressed and is likely due to the pulmonary edema. A superimposed pneumonia would be difficult to exclude. ACT 112: Negative or not required by law. Electronically signed by: Burak Santacruz M.D. 07/29/2022 11:23 AM
[2022-07-29] MEDS ORDERED: VALSARTAN/SACUBITRIL 26/24MG TAB PO SCH ×2 (11:30→21:00)
[2022-07-29] MEDS: EMPAGLIFLOZIN 10 MG TAB PO SCH (11:33)
[2022-07-29] MEDS: POTASSIUM CHLORIDE CRTAB 20 MEQ TABCR PO SCH (11:33)
--- NOTE | 2022-07-29 12:50 | Hospitalist Progress Note ---
Date of Service July 29, 2022 Assessment & Plan (1) Respiratory failure with hypoxia and hypercapnia: Plan: Secondary to heart failure exacerbation. Possible superimporsed developing pneumonia on CXR today vs residual from recent bout of pneumonia. Intermittent B iPAP required and remains hypoxic and tachypneic. Adding Rocephin to doxycycline again, and noted that the doxy reportedly helped him early on during the admission. Metabolic alkalosis is reolved and Home lasix was restarted, however, pulmonary edema and tachypnea still present and this will likely not be enough. Also concerning that his H//H dropped acutely with multiple recent hospital stays, procedures,phlebotomy attempts, etc. Gave 1 unit PRBCs today. He has a history of COPD on Symbicort Spiriva and albuterol at home. He was recently treated for pneumonia with cefuroxime and doxycycline. The general consensus among specialists is that his respiratory status is more likely a product of his heart failure rather than any infection. Continue pulmonary toilet and support as needed. (2) Acute on chronic heart failure with reduced ejection fraction and diastolic dysfunction: Plan: He is a history of cardiogenic shock/ NSTEMI in the last couple of months and ischemic cardiomyopathy. He is in atrial fibrillation anticoagulated on Eliquis. Cardiology is on board and he is now off the dobutamine drip. Restart home entresto and jardiance and he continues on amiodarone per home dose. (3) Metabolic alkalosis: Plan: resolved, acetazolamide stopped. Cont to hold on Lasix until cardiology feels this is appropriate. Will trend daily labs. (4) CAD (coronary artery disease): Plan: 05/31/2022: NSTEMI, cardiogenic shock. S/p cardiac cath which showed severe multivessel CAD and was transferred to [facility]. Had multivessel PCI at [facility]. On atorvastatin, Plavix. No chest pain or active ACS at this time. Continue current medication. (5) Paroxysmal atrial fibrillation: Plan: Currently in sinus rhythm, continue amiodarone Eliquis as noted above. (6) COPD (chronic obstructive pulmonary disease): Plan: Chronic, stable. Continue home inhaler therapy. (7) Anemia: Plan: H/H has fallen since Jun 2022 ( 14.4/42 --> 8.5/). No overt bleeding but has had hospitalizations and procedures which may have contributed to some acute blood loss issues through procedures and phlebotomy. This may be contributing to his shortness of breath/hypoxia to a certain extent. Transfused one unit today. DVT Prophylaxis On Eliquis Disposition ICU Full Code DO Nani Polanco hospitalist Admission and Anticipated Discharge Date Admission Date: July 24, 2022 Subjective Pt is a 66 yo male w/ PMH of multiple vessel CAD s/p stenting, COPD, DM, heart failure w/ reduced ejection fraction, and HTN presenting d/t increased SOB. some SOB this morning and per RN he was anxious and got back on BIPAP around breakfast time. He is still tachypneic at rest. Discussed blood and he was consented. Denies pain and otherwise doing well. Review of Systems Review of Systems: All systems are reviewed negative except as indicated above. Physical Exam Physical Exam: CONSTITUTIONAL: WNWD, vitals as above, NAD EYES: normal conjunctivae, no scleral icterus, ENT: external ear and nose normal, NECK: trachea midline, RESPIRATORY: fine crackles throughout but concentrated in bases of lungs bilaterally, increased respiratory effort at rest CARDIOVASCULAR: regular rate and rhythm, S1 and 2 heard without murmurs, gallops or rubs, no JVD, no peripheral edema CHEST: well healing incision in the right anterior chest wall GASTROINTESTINAL: soft, nontender, ND no guarding MUSCULOSKELETAL: strength 5/5 throughout, head is normocephalic and atraumatic, SKIN: warm and dry, NEUROLOGIC: CN 2-12 grossly intact, no sensory deficit, normal cognition, normal speech, no tremor PSYCHIATRIC: alert cooperative and oriented to person, place and time. Euthymic mood, makes good eye contact, language grossly intact, recent and remote memory grossly intact. Results & Data Results & Data ([facility]) Vital Signs (Past 12 Hours) Vital Signs Temp Pulse Resp BP Pulse Ox O2 Del Method O2 Flow Rate 07/29/22 11:21 80 30 H 98 07/29/22 12:24 36.5 C 82 28 H 95/55 L 99 4 07/29/22 08:30 93 H 33 H 144/89 H 97 07/29/22 08:00 98 H 37 H 94 07/29/22 07:00 95 H 25 H 93 07/29/22 08:40 BiPAP 07/29/22 07:22 103 H 34 H 96 07/29/22 05:00 75 25 H 96 07/29/22 04:00 78 28 H 91 07/29/22 04:00 102/57 L 07/29/22 03:00 78 28 H 94 07/29/22 04:00 36.7 C 07/29/22 02:00 78 20 96 07/29/22 02:00 101/65 07/29/22 01:00 81 20 93 BiPAP 07/29/22 01:00 111/58 L 07/29/22 00:57 85 22 95 FiO2 07/29/22 11:21 40 07/29/22 12:24 07/29/22 08:30 07/29/22 08:00 07/29/22 07:00 07/29/22 08:40 0.45 07/29/22 07:22 40 07/29/22 05:00 07/29/22 04:00 07/29/22 04:00 07/29/22 03:00 07/29/22 04:00 07/29/22 02:00 07/29/22 02:00 07/29/22 01:00 30 07/29/22 01:00 07/29/22 00:57 30 Laboratory Results Short CBC 07/29/22 Range/Units 04:23 WBC 8.06 (4.8-10.8) K/ul Hgb 8.5 L (14.0-18.0) g/dl Hct 26.9 L (42.0-52.0) % Plt Count 260 (130-400) K/uL BMP 07/29/22 04:23 Sodium 135 L Potassium 4.0 Chloride 98 Carbon Dioxide 32 BUN 12 Creatinine 0.39 L Glucose 74 Calcium 8.5 Diagnostic Findings Chest X-Ray 07/29/22 11:05 XR chest 1V portable HISTORY: persistent dyspnea, hypoxia COMPARISON: Chest 07/26/2022. FINDINGS: No pneumothorax. The heart remains mildly enlarged. Calcified thoracic aorta. Moderate pulmonary edema has slightly progressed. Small bilateral pleural effusions are again noted. Patchy right lower lobe airspace opacity has progressed. This likely represents a component of the pulmonary edema. A superimposed pneumonia would be occult to exclude. Surgical clips again noted within the right upper chest. IMPRESSION: 1. Interval progression of the pulmonary edema. 2. Small bilateral pleural effusions persist. 3. Right lower lobe patchy airspace opacity has progressed and is likely due to the pulmonary edema. A superimposed pneumonia would be difficult to exclude. ACT 112: Negative or not required by law. Electronically signed by: Burak Santacruz M.D. 07/29/2022 11:23 AM Medications Administered Current Inpatient Medications Albuterol (Albuterol 0.083% Nebu Soln 3 Ml Vial) 1.25 mg INH Q4H PRN; Protocol PRN Reason: bronchospasm Stop: 08/23/22 18:17 Last Admin: 07/28/22 07:21 Dose: 1.25 mg Albuterol (Albuterol Hfa 8 Gm Inhaler) 2 puffs INH Q4H PRN PRN Reason: Shortness Of Breath Or Wheezing Stop: 08/23/22 18:17 Amiodarone HCl (Amiodarone 200 Mg Tab) 200 mg PO DAILY [facility] Stop: 08/24/22 08:59 Last Admin: 07/29/22 08:06 Dose: 200 mg Apixaban (Apixaban 5 Mg Tablet) 5 mg PO BID [facility] Stop: 08/26/22 20:59 Last Admin: 07/29/22 10:08 Dose: 5 mg Atorvastatin Calcium (Atorvastatin 40 Mg Tab) 80 mg PO DAILY [facility] Stop: 08/24/22 08:59 Last Admin: 07/29/22 08:06 Dose: 80 mg Clopidogrel Bisulfate (Clopidogrel Bisulfate 75 Mg Tab) 75 mg PO DAILY [facility] Stop: 08/24/22 08:59 Last Admin: 07/29/22 08:06 Dose: 75 mg Empagliflozin (Empagliflozin 10 Mg Tab) 10 mg PO QAM [facility] Stop: 08/28/22 11:29 Last Admin: 07/29/22 11:33 Dose: 10 mg Fluticasone/Vilanterol (Fluticasone/Vilanterol 100/25mcg 14 Puffs/Inhaler) 1 puffs INH DAILY [facility] Stop: 08/24/22 08:59 Last Admin: 07/29/22 08:05 Dose: 1 puffs Furosemide (Furosemide 20 Mg Tab) 20 mg PO QAM [facility] Stop: 08/28/22 11:29 Doxycycline Hyclate 100 mg/ (Dextrose) 110 mls @ 50 mls/hr IV Q12H [facility] Stop: 08/02/22 11:59 Last Infusion: 07/29/22 01:16 Dose: Infused Sodium Chloride (Nss) 250 mls @ 15 mls/hr IV .[id number] PRN PRN Reason: For Transfusion Duration Stop: 07/29/22 21:03 Miscellaneous (Icu Electrolyte Replacement Protocol) 1 each N/A BID@06,18 [facility]; Protocol Stop: 08/02/22 05:59 Last Admin: 07/29/22 05:16 Dose: 1 each Pantoprazole Sodium (Pantoprazole 40 Mg Tab) 40 mg PO DAILY [facility] Stop: 08/24/22 08:59 Last Admin: 07/29/22 08:06 Dose: 40 mg Potassium Chloride (Potassium Chloride Crtab 20 Meq Tabcr) 20 meq PO DAILY [facility] Stop: 08/28/22 11:29 Last Admin: 07/29/22 11:33 Dose: 20 meq Sacubitril/Valsartan (Valsartan/Sacubitril 26/24mg Tab) 0.5 tab PO BID [facility] Stop: 08/28/22 11:29 Thiamine HCl (Thiamine Hcl 100 Mg Tab) 100 mg PO DAILY [facility] Stop: 08/28/22 08:59 Last Admin: 07/29/22 08:05 Dose: 100 mg Umeclidinium [place] (Umeclidinium [place] 62.5mcg/Blister 7 Puffs/Inhaler) 1 puffs INH DAILY [facility] Stop: 08/24/22 08:59 Last Admin: 07/29/22 08:05 Dose: 1 puffs (1) Respiratory failure with hypoxia and hypercapnia Chronicity: acute on chronic Qualified Code(s): J96.21 - Acute and chronic respiratory failure with hypoxia; J96.22 - Acute and chronic respiratory failure with hypercapnia; J96.22 - Acute and chronic respiratory failure with hypercapnia
[2022-07-29] MEDS: FUROSEMIDE 20 MG TAB PO SCH (15:25)
[2022-07-29] MEDS ORDERED: FUROSEMIDE 40 MG/4 ML VIAL IV ONE (18:03)
[2022-07-29] MEDS: cefTRIAXone SODIUM 1,000 MG in DEXTROSE 5% AD-VAN 50 ML IV SCH (19:22)
[2022-07-30] MEDS: ICU ELECTROLYTE REPLACEMENT PROTOCOL SCH ×2 (06:27→18:53)
[2022-07-30 06:28] LABS: Hematocrit (blood only) 28.9 % (42.0-52.0); Hemoglobin 9.5 g/dl (14.0-18.0); Mean Corpuscular Hgb Conc 32.9 g/dL (32.0-36.0); Mean Corpuscular Volume 91.2 fL (80.0-100.0); Mean Platelet Volume 9.8 fL (9.4-12.4); Platelet Count 251 K/uL (130-400); RDW Coefficient of Variation 15.4 % (11.5-14.5); RDW Standard Deviation 51.5 fL (36.4-46.3); Red Blood Count 3.17 M/uL (4.70-6.10); White Blood Count 7.51 K/ul (4.8-10.8)
[2022-07-30 06:43] LABS: Magnesium 1.7 mg/dl (1.7-2.4); Potassium 3.5 mmol/L (3.5-5.1)
[2022-07-30 06:49] LABS: Creatinine Clr Calc Pharmacy 121.4 ml/min; Est GFR (African American) 142.5 ml/min; Est GFR (Non-African American) 122.9 ml/min; Phosphorus 2.3 mg/dl (2.5-4.9)
[2022-07-30] MEDS: UMECLIDINIUM BROMIDE 62.5MCG/BLISTER 7 PUFFS/INHALER INH SCH (08:48)
[2022-07-30] MEDS: FLUTICASONE/VILANTEROL 100/25MCG 14 PUFFS/INHALER INH SCH (08:48)
[2022-07-30] MEDS: ATORVASTATIN 40 MG TAB PO SCH (08:49)
[2022-07-30] MEDS: PANTOprazole 40 MG TAB PO SCH (08:49)
[2022-07-30] MEDS: AMIODARONE 200 MG TAB PO SCH (08:49)
[2022-07-30] MEDS: CLOPIDOGREL BISULFATE 75 MG TAB PO SCH (08:49)
[2022-07-30] MEDS: THIAMINE HCL 100 MG TAB PO SCH (08:49)
[2022-07-30] MEDS: POTASSIUM CHLORIDE CRTAB 20 MEQ TABCR PO SCH (08:50)
[2022-07-30] MEDS: APIXABAN 5 MG TABLET PO SCH ×2 (08:50→20:21)
[2022-07-30] MEDS: EMPAGLIFLOZIN 10 MG TAB PO SCH (08:50)
[2022-07-30] MEDS: FUROSEMIDE 20 MG TAB PO SCH (08:50)
[2022-07-30] MEDS: MAGNESIUM OXIDE 400 MG TAB PO SCH ×2 (08:52→20:20)
[2022-07-30] MEDS: POT PHOSPHATE MONOBASIC W/ SOD TAB PO SCH ×4 (08:52→20:21)
--- NOTE | 2022-07-30 10:04 | Cardiology Progress Note ---
Date of Service July 30, 2022 Assessment & Plan (1) Acute on chronic heart failure with reduced ejection fraction and diastolic dysfunction: (2) Ischemic cardiomyopathy: Plan: - Most recent EKG 07/24/2022 revealed technically limited tracing due to artifact, sinus rhythm at 90 bpm, nonspecific repolarization changes. -Echocardiogram performed 07/25/2022: Report describes septal akinesis, inferior wall akinesis, moderate to severe hypokinesis of the lateral wall, LVEF 35-40%, moderate to severe mitral regurgitation, mild to moderate tricuspid regurgitation, moderate pulmonary hypertension with estimated pulmonary systolic pressure of 45-50 mmHg -Compared to previous echo 07/08/2022, ejection fraction relatively stable. Compared to prior echo 05/31/2022, LVEF 20-25% at that time. -06/10/2022, had undergone complex PCI at [facility] in setting of cardiogenic shock mechanical intubation, Impella support, drug-eluting stents to the left main, proximal LAD, circumflex. Continue therapy including amiodarone 200 mg daily (given paroxysmal atrial fibrillation) Eliquis 5 mg twice daily, clopidogrel 75 mg daily, Jardiance 10 mg daily, furosemide 20 mg p.o. daily, potassium chloride 20 mill equivalents daily, Entresto 1 tablet p.o. twice daily. -Continue ongoing treatment for suspected underlying pneumonia including doxycycline, Rocephin bronchodilators. -Received unit of packed red blood cells 07/29, hemoglobin stable. DVT prophylaxis: Anticoagulated with Eliquis. Admission and Anticipated Discharge Date Admission Date: July 24, 2022 Subjective Patient seen in cardiology follow-up. He is out of the intensive care unit and now in room 201. He utilized BiPAP overnight last night, but he is on 5 L nasal cannula this morning and feels comfortable. He is mentating well. Telemetry reveals sinus rhythm in the 80s. De La Cruz catheter reveals drainage of very dark concentrated urine. Review of Systems Review of Systems: All systems reviewed & are unremarkable except as noted in HPI & below Respiratory: + cough Physical Exam Constitutional: + ill appearing and + cachectic Respiratory: no respiratory distress and no labored breathing Auscultation: + rhonchi and + wheezes (Expiratory wheezing) Cardiovascular: Rate/Rhythm: regular rate and regular rhythm Gastrointestinal (Abdomen): normal bowel sounds, soft, nontender, no hepatosplenomegaly Musculoskeletal: Extremities: + muscle atrophy Neurologic: PERRL, EOMI, accommodation nl, no face palsy, no dysarthria Results & Data ([facility]) Vital Signs (Past 12 Hours) Vital Signs Temp Pulse Pulse Resp BP Pulse Ox O2 Del Method 07/30/22 07:58 36.6 C 85 24 99/61 L 93 Nasal Cannula 07/30/22 02:55 36.7 C 73 26 H 93/57 L 96 BiPAP 07/30/22 02:09 72 25 H 94 07/29/22 22:02 79 07/29/22 23:35 37.0 C 81 22 99/56 L 97 Nasal Cannula O2 Flow Rate FiO2 07/30/22 07:58 5 07/30/22 02:55 07/30/22 02:09 30 07/29/22 22:02 07/29/22 23:35 5.0 Laboratory Results CBC 07/30/22 Range/Units 05:45 WBC 7.51 (4.8-10.8) K/ul RBC 3.17 L (4.70-6.10) M/uL Hgb 9.5 L (14.0-18.0) g/dl Hct 28.9 L (42.0-52.0) % Plt Count 251 (130-400) K/uL Comprehensive Metabolic Panel 07/30/22 Range/Units 05:45 Sodium 136 (136-145) mmol/L Potassium 3.5 (3.5-5.1) mmol/L Chloride 99 (98-107) mmol/L Carbon Dioxide 34 H (21-32) mmol/L BUN 12 (6-23) mg/dl Creatinine 0.40 L (0.6-1.4) mg/dl Glucose 101 H (70-99(Fasting)) mg/dl Calcium 8.0 L (8.5-10.1) mg/dl Intake and Output 07/29/22 07/30/22 07/30/22 22:59 06:59 14:59 Intake Total 792 / 1652 310 / 1652 Output Total 550 / 1650 800 / 1650 Balance 242 / 2 -490 / 2 Intake: IV 515 / 725 110 / 725 Doxycycline Hyclate 100 mg In 110 / 220 110 / 220 Dextrose 5% 100 ml @ 50 mls/hr IV Q12H [facility] Rx#:[id number] Magnesium Sulfate / D5w 1 gm In 100 / 200 100 ml @ 50 mls/hr IV Q2H [facility] Rx#:[id number] Sodium Phosphate 15 mmol In 255 / 255 Sodium Chloride 0.9% 250 ml @ 88 mls/hr IV ONE ONE Rx#: [id number] cefTRIAXone SODIUM 1,000 mg In 50 / 50 Dextrose 5% Ad-Van 50 ml @ 100 mls/hr IV Q24H [facility] Rx#:[id number] Oral 200 / 650 Intake (Blood Product) Amt 277 / 277 Packed Cells, Leukoreduced 2 277 / 277 Unit [id number] Output: Urine Amount (Catheter) 550 / 1650 800 / 1650 De La Cruz/Indwelling 550 / 1650 800 / 1650 Other: Weight 47.9 kg Weight Measurement Method Built in [facility]
[2022-07-30] MEDS: DOXYCYCLINE HYCLATE 100 MG in DEXTROSE 5% 100 ML IV SCH ×2 (12:36→23:27)
--- NOTE | 2022-07-30 14:24 | Hospitalist Progress Note ---
Date of Service July 30, 2022 Assessment & Plan (1) Respiratory failure with hypoxia and hypercapnia: Plan: Secondary to heart failure exacerbation. Possible superimporsed developing pneumonia on latest CXR which may also be residual from recent bout of pneumonia . Intermittent BiPAP required and remains hypoxic and tachypneic-but this need has improved today. Only changes yesterday (07/29) were the aaddition of Rocephin and transfusing him the one unit of blood. Cont Rocpehin and doxy. Metabolic alkalosis is reolved and Home lasix was restarted, however, pulmonary edema and tachypnea still present and this will likely not be enough. Labwork this morning already reflecting worsening alkalosis. He has a history of COPD on Symbicort Spiriva and albuterol at home. He was recently treated for pneumonia with cefuroxime and doxycycline. The general consensus among specialists is that his respiratory status is more likely a product of his heart failure rather than any infection. Continue pulmonary toilet and support as needed. BIPAP as needed. (2) Acute on chronic heart failure with reduced ejection fraction and diastolic dysfunction: Plan: He is a history of cardiogenic shock/ NSTEMI in the last couple of months and ischemic cardiomyopathy. He is in atrial fibrillation anticoagulated on Eliquis. Cardiology is on board and he is now off the dobutamine drip. Restart home entresto (held again today because of relative hypotension this morning) and jardiance and he continues on amiodarone per home dose. (3) Metabolic alkalosis: Plan: resolved, acetazolamide stopped. Cont to hold on Lasix until cardiology feels this is appropriate. Will trend daily labs. (4) CAD (coronary artery disease): Plan: 05/31/2022: NSTEMI, cardiogenic shock. S/p cardiac cath which showed severe multivessel CAD and [place] [facility] [place] [facility] [place] On atorvastatin, Plavix. No chest pain or active ACS at this time. Continue current medication. (5) Paroxysmal atrial fibrillation: Plan: Currently in sinus rhythm, continue amiodarone Eliquis as noted above. (6) COPD (chronic obstructive pulmonary disease): Plan: Chronic, stable. Continue home inhaler therapy. (7) Anemia: Plan: H/H has fallen since Jun 2022 (14.4/42 --> 8.5/27). No overt bleeding but has had hospitalizations and procedures which may have contributed to some acute blood loss issues through procedures and phlebotomy. This may be contributing to his shortness of breath/hypoxia to a certain extent. Transfused one unit with improvement clinically. DVT Prophylaxis On Eliquis Disposition ICU Full Code [facility] Admission and Anticipated Discharge Date Admission Date: July 24, 2022 Subjective Pt is a 66 yo male w/ PMH of multiple vessel CAD s/p stenting, COPD, DM, heart failure w/ reduced ejection fraction, and HTN presenting d/t increased SOB. breathing appears to be improved today with respect to being able to stay off the bipap he was using intermittently over the past few days He received the blood transfusion yesterday with an appropriate response in H/H on labwork this morning. He is still tachypneic at rest but reports improvement States he was up and out of bed standing today at least twice and could have gone further if there was portable oxygen present. He is asking about a home BIPAP mask again. Review of Systems Review of Systems: All systems are reviewed negative except as indicated above. Physical Exam Physical Exam: CONSTITUTIONAL: WNWD, vitals as above, NAD EYES: normal conjunctivae, no scleral icterus, ENT: external ear and nose normal, NECK: trachea midline, RESPIRATORY: CTA throughout, increased respiratory effort at rest CARDIOVASCULAR: regular rate and rhythm, S1 and 2 heard without murmurs, gallops or rubs, no JVD, no peripheral edema CHEST: well healing incision in the right anterior chest wall GASTROINTESTINAL: soft, nontender, ND no guarding MUSCULOSKELETAL: strength 5/5 throughout, head is normocephalic and atraumatic, SKIN: warm and dry, NEUROLOGIC: CN 2-12 grossly intact, no sensory deficit, normal cognition, normal speech, no tremor PSYCHIATRIC: alert cooperative and oriented to person, place and time. Euthymic mood, makes good eye contact, language grossly intact, recent and remote memory grossly intact. Results & Data Results & Data ([facility]) Vital Signs (Past 12 Hours) Vital Signs Temp Pulse Pulse Resp BP Pulse Ox Pulse Ox 07/30/22 13:52 89 L 07/30/22 12:14 93 07/30/22 08:00 07/30/22 08:00 68 07/30/22 10:39 36.5 C 84 23 109/66 93 07/30/22 07:58 36.6 C 85 24 99/61 L 93 07/30/22 02:55 36.7 C 73 26 H 93/57 L 96 Pulse Ox Pulse Ox O2 Del Method O2 Flow Rate O2 Flow Rate O2 Flow Rate O2 Flow Rate 07/30/22 13:52 90 82 L 4 4 4 07/30/22 12:14 07/30/22 08:00 Nasal Cannula 4 07/30/22 08:00 07/30/22 10:39 Nasal Cannula 5 07/30/22 07:58 Nasal Cannula 5 07/30/22 02:55 BiPAP Laboratory Results Short CBC 07/30/22 Range/Units 05:45 WBC 7.51 (4.8-10.8) K/ul Hgb 9.5 L (14.0-18.0) g/dl Hct 28.9 L (42.0-52.0) % Plt Count 251 (130-400) K/uL BMP 07/30/22 05:45 Sodium 136 Potassium 3.5 Chloride 99 Carbon Dioxide 34 H BUN 12 Creatinine 0.40 L Glucose 101 H Calcium 8.0 L Medications Administered Current Inpatient Medications Albuterol (Albuterol 0.083% Nebu Soln 3 Ml Vial) 1.25 mg INH Q4H PRN; Protocol PRN Reason: bronchospasm Stop: 08/23/22 18:17 Last Admin: 07/28/22 07:21 Dose: 1.25 mg Albuterol (Albuterol Hfa 8 Gm Inhaler) 2 puffs INH Q4H PRN PRN Reason: Shortness Of Breath Or Wheezing Stop: 08/23/22 18:17 Amiodarone HCl (Amiodarone 200 Mg Tab) 200 mg PO DAILY [facility] Stop: 08/24/22 08:59 Last Admin: 07/30/22 08:49 Dose: 200 mg Apixaban (Apixaban 5 Mg Tablet) 5 mg PO BID [facility] Stop: 08/26/22 20:59 Last Admin: 07/30/22 08:50 Dose: 5 mg Atorvastatin Calcium (Atorvastatin 40 Mg Tab) 80 mg PO DAILY [facility] Stop: 08/24/22 08:59 Last Admin: 07/30/22 08:49 Dose: 80 mg Clopidogrel Bisulfate (Clopidogrel Bisulfate 75 Mg Tab) 75 mg PO DAILY [facility] Stop: 08/24/22 08:59 Last Admin: 07/30/22 08:49 Dose: 75 mg Empagliflozin (Empagliflozin 10 Mg Tab) 10 mg PO QAM [facility] Stop: 08/28/22 11:29 Last Admin: 07/30/22 08:50 Dose: 10 mg Fluticasone/Vilanterol (Fluticasone/Vilanterol 100/25mcg 14 Puffs/Inhaler) 1 puffs INH DAILY [facility] Stop: 08/24/22 08:59 Last Admin: 07/30/22 08:48 Dose: 1 puffs Furosemide (Furosemide 20 Mg Tab) 20 mg PO QAM [facility] Stop: 08/28/22 11:29 Last Admin: 07/30/22 08:50 Dose: 20 mg Doxycycline Hyclate 100 mg/ (Dextrose) 110 mls @ 50 mls/hr IV Q12H [facility] Stop: 08/02/22 11:59 Last Admin: 07/30/22 12:36 Dose: 50 mls/hr Ceftriaxone Sodium 1,000 mg/ (Dextrose) 50 mls @ 100 mls/hr IV Q24H [facility]; Protocol Stop: 08/05/22 18:29 Last Infusion: 07/29/22 19:57 Dose: Infused Magnesium Oxide (Magnesium Oxide 400 Mg Tab) 400 mg PO BID [facility] Stop: 08/29/22 08:59 Last Admin: 07/30/22 08:52 Dose: 400 mg Miscellaneous (Icu Electrolyte Replacement Protocol) 1 each N/A BID@06,18 [facility]; Protocol Stop: 08/02/22 05:59 Last Admin: 07/30/22 06:27 Dose: Not Given Pantoprazole Sodium (Pantoprazole 40 Mg Tab) 40 mg PO DAILY [facility] Stop: 08/24/22 08:59 Last Admin: 07/30/22 08:49 Dose: 40 mg Potassium Chloride (Potassium Chloride Crtab 20 Meq Tabcr) 20 meq PO DAILY [facility] Stop: 08/28/22 11:29 Last Admin: 07/30/22 08:50 Dose: 20 meq Potassium Phosphate (Pot Phosphate Monobasic W/ Sod Tab) 1 tab PO QID [facility] Stop: 08/01/22 08:59 Last Admin: 07/30/22 12:36 Dose: 1 tab Sacubitril/Valsartan (Valsartan/Sacubitril 26/24mg Tab) 1 tab PO BID [facility] Stop: 08/28/22 20:59 Thiamine HCl (Thiamine Hcl 100 Mg Tab) 100 mg PO DAILY [facility] Stop: 08/28/22 08:59 Last Admin: 07/30/22 08:49 Dose: 100 mg Umeclidinium [place] (Umeclidinium [place] 62.5mcg/Blister 7 Puffs/Inhaler) 1 puffs INH DAILY [facility] Stop: 08/24/22 08:59 Last Admin: 07/30/22 08:48 Dose: 1 puffs (1) Respiratory failure with hypoxia and hypercapnia Chronicity: acute on chronic Qualified Code(s): J96.21 - Acute and chronic respiratory failure with hypoxia; J96.22 - Acute and chronic respiratory failure with hypercapnia; J96.22 - Acute and chronic respiratory failure with hypercapnia
[2022-07-30] MEDS: cefTRIAXone SODIUM 1,000 MG in DEXTROSE 5% AD-VAN 50 ML IV SCH (18:30)
[2022-07-30] MEDS ORDERED: Nursing to Pharmacy Communication SCH (23:45)
[2022-07-31] MEDS: ALBUTEROL 0.083% NEBU SOLN 3 ML VIAL INH PRN (00:30)
[2022-07-31] MEDS ORDERED: OLANZapine 10 MG/2.1 ML SDV IM STA (00:45)
[2022-07-31] MEDS ORDERED: ALBUMIN 25% 12.5 GM/50 ML VIAL IV ONE (00:46)
[2022-07-31] MEDS ORDERED: FUROSEMIDE INJ 20 MG/2 ML VIAL IV ONE ×3 (00:46→02:13)
[2022-07-31] MEDS ORDERED: OLANZapine 10 MG/2.1 ML SDV IM ONE (00:50)
[2022-07-31] MEDS ORDERED: methylPREDNISolone 20 MG in SYRINGE 0 ML IV STA (00:53)
[2022-07-31 01:24] LABS: Base Excess ABG 2.6 mEq/L (-9-1.8); HCO3 ABG 33 mmol/L (19-24); Oxygen Saturation ABG 98.3 % (90-95); PCO2 ABG 83 mmHg (35-46); PO2 ABG 104 mmHg (80-95); pH ABG 7.21 (7.35-7.45)
--- NOTE | 2022-07-31 01:26 | Communication Note ---
Date of Service: July 31, 2022 Notified by RN of worsening respiratory distress on the BiPAP. Gurgling cough symptoms later noted as per RN. Increasing shortness of breath, patient denies chest pain. PPE : Anxious, chronically ill, respiratory distress BiPAP in place Decreased breath sounds, diffuse expiratory wheezes Chest x-ray as per my interpretation : Congestion, cardiomegaly, right lower lobe infiltrate noted on 07/29 x-ray AP Worsening hypoxemic respiratory failure Multifactorial: Pulmonary congestion COPD exacerbation secondary to possible aspiration pneumonia BiPAP Check ABG IV Lasix with albumin 1 dose given borderline BP Steroid course, nebs RTC for COPD exacerbation Ertapenem in place of ceftriaxone and doxycycline for possible aspiration pneumonia Aspiration precautions, swallow eval Request AM provider to update pulmonology service. CODE STATUS reviewed with patient at bedside. Patient declines intubation in the event of further clinical deterioration. Okay with CPR.
[2022-07-31] MEDS: MAGNESIUM SULFATE / D5W 1 GM/100 ML BAG IV SCH ×2 (01:31→03:21)
[2022-07-31] MEDS ORDERED: GLUCOSE 40% GEL 15 GM TUBE PO PRN (01:39)
[2022-07-31] MEDS ORDERED: LANTUS PER UNIT CHARGE SQ STA (01:39)
[2022-07-31] MEDS ORDERED: GLUCAGON FOR INJ 1 MG VIAL SQ PRN (01:39)
[2022-07-31] MEDS ORDERED: DEXTROSE 50% 50 ML SYRINGE IV PRN (01:39)
[2022-07-31] MEDS ORDERED: GLUCOSE 10 TAB/TUBE PO PRN (01:39)
[2022-07-31] MEDS ORDERED: CARBOHYDRATES FOR HYPOGLYCEMIA PO PRN (01:39)
[2022-07-31] MEDS ORDERED: INSULIN ASPART PER UNIT SC SCH (01:40)
[2022-07-31 01:41] LABS: Allen Test Pos (Pos)
[2022-07-31] MEDS: POTASSIUM CHLORIDE / WTR 10 MEQ/100 ML PLCT IV SCH ×4 (01:47→04:41)
[2022-07-31] MEDS: ERTAPENEM SODIUM 1,000 MG in SYRINGE 0 ML IV SCH (02:34)
[2022-07-31] MEDS ORDERED: ACETAMINOPHEN 1,000 MG/100 ML VIAL IV STA (02:45)
[2022-07-31 02:49] LABS: HCO3 ABG 33 mmol/L (19-24); Oxygen Saturation ABG 88.3 % (90-95); PCO2 ABG 66 mmHg (35-46); PO2 ABG 59 mmHg (80-95)
[2022-07-31 03:01] LABS: Allen Test Pos (Pos)
[2022-07-31] MEDS ORDERED: ACETAMINOPHEN 10MG/ML Custom 650 MG in EMPTY BAG 0 ML IV ONE (03:15)
[2022-07-31] MEDS: IPRATROPIUM BROMIDE NEB SOLN 0.02% 2.5 ML VIAL INH SCH ×3 (05:11→20:12)
[2022-07-31] MEDS: LEVALBUTEROL 1.25MG/0.5ML NEB INH SCH ×3 (05:11→20:12)
[2022-07-31 06:18] LABS: Hematocrit (blood only) 29.4 % (42.0-52.0); Hemoglobin 9.3 g/dl (14.0-18.0); Mean Corpuscular Hemoglobin 29.8 pg (25.0-34.0); Mean Corpuscular Hgb Conc 31.6 g/dL (32.0-36.0); Mean Corpuscular Volume 94.2 fL (80.0-100.0); Mean Platelet Volume 9.7 fL (9.4-12.4); Platelet Count 264 K/uL (130-400); RDW Coefficient of Variation 15.4 % (11.5-14.5); RDW Standard Deviation 53.3 fL (36.4-46.3); Red Blood Count 3.12 M/uL (4.70-6.10); White Blood Count 10.21 K/ul (4.8-10.8)
[2022-07-31] MEDS ORDERED: XOPENEX/ATROVENT 1.25mg/0.5MG NEB COMBO NEB SCH (07:00)
[2022-07-31 07:02] LABS: BUN Creatinine Ratio 24.6 (10-20); Creatinine Clr Calc Pharmacy 88.8 ml/min; Est GFR (African American) 123.2 ml/min; Est GFR (Non-African American) 106.3 ml/min; Potassium 4.5 mmol/L (3.5-5.1)
--- NOTE | 2022-07-31 07:33 | Hospitalist Progress Note ---
Date of Service July 31, 2022 Assessment & Plan (1) Respiratory failure with hypoxia and hypercapnia: Plan: Secondary to heart failure exacerbation. Possible superimporsed developing pneumonia on latest CXR which may also be residual from recent bout of pneumonia . No cough, fevers or chills present. Intermittent BiPAP required and remains hypoxic and tachypneic-but this need has improved today. He was switched from Rocephin/doxy to ertapenem as noted above. An issue for him is his tendency to develop metabolic alkalosis with even small doses of lasix at this point. While in the ICU he required several doses of acetazolamide and had to have diuretics held to resolve this alkalosis. With the ongoing pulmonary edema, there is need for additional Lasix as what happened overnight and his alkalosis is worsening as a result again. Holding further Lasix now until I can discuss with cardiology. He has a history of COPD on Symbicort Spiriva and albuterol at home. Wheezing was reported overnight but is not present at this time, and I don't believe this is a COPD exacerbation as much as heart failure. Stopping prednisone at this time. OK to continue with scheduled duoneb therapy for the times being. Continue pulmonary toilet and support as needed. BIPAP as needed. Pt is OK with intubation. Will need to continue to minimize background fluids for any medications given, for example, the additional 500mls of fluid overnight for IV electrolytes that we may be able to give orally instead. (2) Acute on chronic heart failure with reduced ejection fraction and diastolic dysfunction: Plan: He is a history of cardiogenic shock/ NSTEMI in the last couple of months and ischemic cardiomyopathy. PAF anticoagulated on Eliquis. Cardiology is on board and he is now off the dobutamine drip. Home entresto held again today because of relative hypotension this morning. Cont jardiance and amiodarone per home dose. (3) Metabolic alkalosis: Plan: resolved, acetazolamide stopped. Additional Lasix overnight as noted above for worsening respiratory issues with pulmonary edema. Bicarb rising again. Cont to hold on Lasix until cardiology feels this is appropriate. Will trend daily labs. (4) CAD (coronary artery disease): Plan: 05/31/2022: NSTEMI, cardiogenic shock. S/p cardiac cath which showed severe multivessel CAD and [place] [facility] [place] [facility] [place] On atorvastatin, Plavix. No chest pain or active ACS at this time. Continue current medication. (5) Paroxysmal atrial fibrillation: Plan: Currently in sinus rhythm, continue amiodarone Eliquis as noted above. (6) COPD (chronic obstructive pulmonary disease): Plan: Chronic, stable. As noted above, although wheezing was present overnight, I don't think he is having an exacerbation of COPD at this point. Steroids stopped to avoid unwanted issues with hyperglycemia and fluid retention as well as lessening the risk of hospital delirium. OK to continue scheduled bronchodilators for the time being. Continue home inhaler therapy. (7) Anemia: Plan: H/H has fallen since Jun 2022 (14.4/42 --> 8.5/). No overt bleeding but has had hospitalizations and procedures which may have contributed to some acute blood loss issues through procedures and phlebotomy. This may be contributing to his shortness of breath/hypoxia to a certain extent. Transfused one unit on 07/30 with improvement clinically. H/H currently 9.3/24. Will try to minimize phlebotomy. DVT Prophylaxis On Eliquis Disposition ICU Full Code Kyung Morris DO [facility] Hospitalist Admission and Anticipated Discharge Date Admission Date: July 24, 2022 Subjective Pt is a 66 yo male w/ PMH of multiple vessel CAD s/p stenting, COPD, DM, heart f ailure w/ reduced ejection fraction, and HTN presenting d/t increased SOB. Issues with worsening respiratory function overnight related to an ill-fitting BIPAP mask This caused him to feel more short of breath and become anxious and he felt like he couldn't catch up even when the issue was fixed. As a result, he received ertapenem with Rocephin/doxy stopped for possible aspiration pneumonia Lasix 20mg IV was given twice, along with 4 K riders (40 MEq) each in 100cc of fluid Also, 2 Mg riders each in 50cc fluid Solumedrol 20mg IV which caused his sugar to rise to 309 for which he was then given Lantus 5 unit/Novolog 7 units. He is on jardiance for heart failure but is not a diabetic and subsquently developed hypoglycemia this morning with a BSG of 47. He was given 3 OJ and his BSG nuvia to 105 Olanzapine given overnight. His BP was 83 systolic but on recheck in his upper arm over a PIV, it was 103/56. He is feeling fine this morning and is net positive 100cc on his fluid balance with crackles (no wheezes) in his lungs He denies any pain or other issues at this time. I addressed the code status change and he reports that since his kids would want him to undergo ventilation he would like to be a full code Code status was changed and RN updated. He is off the BIPAP mask and appears comfortable although still has resting tachypnea similar to previous days. Review of Systems Review of Systems: All systems are reviewed negative except as indicated above. Physical Exam Physical Exam: CONSTITUTIONAL: WNWD, vitals as above, NAD, PIV in both upper arms EYES: normal conjunctivae, no scleral icterus, ENT: external ear and nose normal, NECK: trachea midline, RESPIRATORY: CTA throughout, increased respiratory effort at rest CARDIOVASCULAR: regular rate and rhythm, S1 and 2 heard without murmurs, gallops or rubs, no JVD, no peripheral edema CHEST: well healing incision in the right anterior chest wall GASTROINTESTINAL: soft, nontender, ND no guarding MUSCULOSKELETAL: strength 5/5 throughout, head is normocephalic and atraumatic, SKIN: warm and dry, NEUROLOGIC: CN 2-12 grossly intact, no sensory deficit, normal cognition, normal speech, no tremor PSYCHIATRIC: alert cooperative and oriented to person, place and time. Euthymic mood, makes good eye contact, language grossly intact, recent and remote memory grossly intact. Results & Data Results & Data ([facility]) Vital Signs (Past 12 Hours) Vital Signs Temp Pulse Pulse Resp BP BP Pulse Ox 07/31/22 06:58 36.4 C L 69 20 84/53 L 100 07/31/22 05:11 62 20 95 07/31/22 05:11 64 16 98 07/31/22 03:24 87 20 117/98 95 07/31/22 03:13 07/31/22 02:01 99 H 31 H 97 07/31/22 01:51 100 H 28 H 139/87 97 07/31/22 00:30 99 H 22 96 07/30/22 21:57 36.4 C L 83 20 109/58 L 93 O2 Del Method O2 Flow Rate FiO2 07/31/22 06:58 BiPAP 07/31/22 05:11 80 01/29/23 05:11 BiPAP 80 07/31/22 03:24 BiPAP 80 07/31/22 03:13 80 07/31/22 02:01 50 07/31/22 01:51 BiPAP 60 07/31/22 00:30 60 07/30/22 21:57 Nasal Cannula 4 Laboratory Results Short CBC 07/31/22 Range/Units 05:32 WBC 10.21 (4.8-10.8) K/ul Hgb 9.3 L (14.0-18.0) g/dl Hct 29.4 L (42.0-52.0) % Plt Count 264 (130-400) K/uL BMP 07/31/22 05:32 Sodium 137 Potassium 4.5 D Chloride 97 L Carbon Dioxide 37 H BUN 14 Creatinine 0.57 L Glucose 45 L* Calcium 8.0 L Medications Administered Current Inpatient Medications Albuterol (Albuterol 0.083% Nebu Soln 3 Ml Vial) 1.25 mg INH Q4H PRN; Protocol PRN Reason: bronchospasm Stop: 08/23/22 18:17 Last Admin: 07/31/22 00:30 Dose: 1.25 mg Albuterol (Albuterol Hfa 8 Gm Inhaler) 2 puffs INH Q4H PRN PRN Reason: Shortness Of Breath Or Wheezing Stop: 08/23/22 18:17 Amiodarone HCl (Amiodarone 200 Mg Tab) 200 mg PO DAILY [facility] Stop: 08/24/22 08:59 Last Admin: 07/30/22 08:49 Dose: 200 mg Apixaban (Apixaban 5 Mg Tablet) 5 mg PO BID [facility] Stop: 08/26/22 20:59 Last Admin: 07/30/22 20:21 Dose: 5 mg Atorvastatin Calcium (Atorvastatin 40 Mg Tab) 80 mg PO DAILY [facility] Stop: 08/24/22 08:59 Last Admin: 07/30/22 08:49 Dose: 80 mg Clopidogrel Bisulfate (Clopidogrel Bisulfate 75 Mg Tab) 75 mg PO DAILY [facility] Stop: 08/24/22 08:59 Last Admin: 07/30/22 08:49 Dose: 75 mg Empagliflozin (Empagliflozin 10 Mg Tab) [facility] [place] [facility] [place]: 08/28/22 11:29 Last Admin: 07/30/22 08:50 Dose: 10 mg Fluticasone/Vilanterol (Fluticasone/Vilanterol 100/25mcg 14 Puffs/Inhaler) 1 puffs INH DAILY [facility] Stop: 08/24/22 08:59 Last Admin: 07/30/22 08:48 Dose: 1 puffs Furosemide (Furosemide 20 Mg Tab) 20 mg PO QAM [facility] Stop: 08/31/22 08:59 Ertapenem 1,000 mg/ Syringe 10 mls @ 2 mls/min IV Q24H [facility] Stop: 08/07/22 02:44 Last Admin: 07/31/22 02:34 Dose: 2 mls/min Ipratropium [place] (Ipratropium [place] Neb Soln 0.02% 2.5 Ml Vial) 0.5 mg INH Q6R [facility] Stop: 08/30/22 06:59 Last Admin: 07/31/22 05:11 Dose: 0.5 mg Levalbuterol HCl (Levalbuterol 1.25mg/0.5ml Neb) 1.25 mg INH Q6R [facility] Stop: 08/30/22 06:59 Last Admin: 07/31/22 05:11 Dose: 1.25 mg Magnesium Oxide (Magnesium Oxide 400 Mg Tab) 400 mg PO BID [facility] Stop: 08/29/22 08:59 Last Admin: 07/30/22 20:20 Dose: 400 mg Pantoprazole Sodium (Pantoprazole 40 Mg Tab) 40 mg PO DAILY [facility] Stop: 08/24/22 08:59 Last Admin: 07/30/22 08:49 Dose: 40 mg Potassium Phosphate (Pot Phosphate Monobasic W/ Sod Tab) 1 tab PO QID [facility] Stop: 08/01/22 08:59 Last Admin: 07/30/22 20:21 Dose: 1 tab Sacubitril/Valsartan (Valsartan/Sacubitril 26/24mg Tab) 1 tab PO BID [facility] Stop: 08/28/22 20:59 Thiamine HCl (Thiamine Hcl 100 Mg Tab) 100 mg PO DAILY [facility] Stop: 08/28/22 08:59 Last Admin: 07/30/22 08:49 Dose: 100 mg Umeclidinium [place] (Umeclidinium [place] 62.5mcg/Blister 7 Puffs/Inhaler) 1 puffs INH DAILY [facility] Stop: 08/24/22 08:59 Last Admin: 07/30/22 08:48 Dose: 1 puffs (1) Respiratory failure with hypoxia and hypercapnia Chronicity: acute on chronic Qualified Code(s): J96.21 - Acute and chronic respiratory failure with hypoxia; J96.22 - Acute and chronic respiratory failure with hypercapnia; J96.22 - Acute and chronic respiratory failure with hypercapnia
[2022-07-31] MEDS: FLUTICASONE/VILANTEROL 100/25MCG 14 PUFFS/INHALER INH SCH (08:50)
[2022-07-31] MEDS: POT PHOSPHATE MONOBASIC W/ SOD TAB PO SCH ×4 (08:50→20:56)
[2022-07-31] MEDS: APIXABAN 5 MG TABLET PO SCH ×2 (08:50→20:56)
[2022-07-31] MEDS: PANTOprazole 40 MG TAB PO SCH (08:51)
[2022-07-31] MEDS: UMECLIDINIUM BROMIDE 62.5MCG/BLISTER 7 PUFFS/INHALER INH SCH (08:51)
[2022-07-31] MEDS: AMIODARONE 200 MG TAB PO SCH (08:51)
[2022-07-31] MEDS: CLOPIDOGREL BISULFATE 75 MG TAB PO SCH (08:52)
[2022-07-31] MEDS: THIAMINE HCL 100 MG TAB PO SCH (08:52)
[2022-07-31] MEDS: EMPAGLIFLOZIN 10 MG TAB PO SCH (08:53)
[2022-07-31] MEDS: ATORVASTATIN 40 MG TAB PO SCH (08:53)
[2022-07-31] MEDS: MAGNESIUM OXIDE 400 MG TAB PO SCH ×2 (08:53→20:56)
--- NOTE | 2022-07-31 09:01 | XRay Report ---
XR chest 1V portable CLINICAL HISTORY: Shortness of breath. COMPARISON STUDY: Chest radiograph July 29, 2022. FINDINGS: Right axillary surgical clips are noted. Small bilateral pleural effusions with bibasilar o pacities persist. There is no pneumothorax. There is persistent interstitial thickening. Cardiomedias tinal silhouette is stable. Underlying emphysema. IMPRESSION: 1. Persistent pulmonary edema with small bilateral pleural effusions and associated bibasilar opaciti es which could reflect pneumonia or atelectasis. 2. Emphysema. 3. Cardiomegaly. ACT 112: Negative or not required by law. Electronically signed by: Oc Huggins M.D. 07/31/2022 8:59 AM
--- NOTE | 2022-07-31 14:25 | Cardiology Progress Note ---
Date of Service July 31, 2022 Assessment & Plan (1) Heart failure with reduced ejection fraction: (2) Ischemic cardiomyopathy: (3) Acute respiratory failure with hypoxia and hypercapnia: Plan The patient had 2 arterial blood gases performed overnight last night. Initial 1 at 109 revealed pH of 7.2, with PCO2 of 83, bicarb 33. On the second, his pH was better, 7.3, PCO2 66, PO2 59, bicarb 33. It certainly does appear that there is some degree of hypercapnia, CO2 retention contributing to his respiratory insufficiency. In addition, he has acute systolic heart failure due to ischemic cardiomyopathy. I reviewed the images obtained at the time of his recent transthoracic echo on 07/25/2022 independently. There is severe hypokinesis to akinesis of the inferolateral and anterolateral manuel. The left atrial filling pressure is high, with noted bowing of the interatrial septum toward the right atrium consistent with high left atrial filling pressure. Significant tricuspid regurgitation and mitral regurgitation present, with moderate to severe pulmonary hypertension, pulmonary artery systolic pressure estimated to be 58 mmHg. At present, furosemide and Entresto both on hold due to concerns of relative hypotension. The patient was comfortable in bed, however requiring high flow oxygen supplementation, 6 L/min, and certainly it would appear that he requires positive pressure ventilation when he sleeps or naps. Is already had a heroic PCI to the left main, LAD, circumflex performed with Impella support which seemingly stabilized him at that time, but he still has severe symptoms, and I am not sure how much there is to offer him. We had a valentina discussion with regards to my concerns about his prognosis. Admission and Anticipated Discharge Date Admission Date: July 24, 2022 Subjective Patient seen in cardiology follow-up. He apparently had difficulties through the night. Initially his BiPAP mask seal was not effective, and he went into respiratory distress and had difficulty recovering. He initially received a dose of furosemide, bronchodilators, and his antibiotic therapy was intensified. Physical Exam Constitutional: + ill appearing Respiratory: Auscultation: + diminished lung sounds, + rhonchi and + wheezes Cardiovascular: Rate/Rhythm: regular rate and regular rhythm Vessels: + JVD Extremities: no edema Gastrointestinal (Abdomen): normal bowel sounds, soft, nontender, no hepatosplenomegaly Neurologic: PERRL, EOMI, accommodation nl, no face palsy, no dysarthria Results & Data ([facility]) Vital Signs (Past 12 Hours) Vital Signs Temp Pulse Pulse Resp BP Pulse Ox O2 Del Method 07/31/22 11:06 36.5 C 85 21 104/63 95 Nasal Cannula 07/31/22 07:22 36.8 C 83 20 103/56 L 92 Nasal Cannula 07/31/22 06:58 36.4 C L 69 20 84/53 L 100 BiPAP 07/31/22 05:11 62 20 95 07/31/22 05:11 64 16 98 BiPAP 07/31/22 03:24 87 20 117/98 95 BiPAP 07/31/22 03:13 O2 Flow Rate FiO2 07/31/22 11:06 6 07/31/22 07:22 4 07/31/22 06:58 07/31/22 05:11 80 07/31/22 05:11 80 07/31/22 03:24 80 07/31/22 03:13 80 Laboratory Results CBC 07/31/22 Range/Units 05:32 WBC 10.21 (4.8-10.8) K/ul RBC 3.12 L (4.70-6.10) M/uL Hgb 9.3 L (14.0-18.0) g/dl Hct 29.4 L (42.0-52.0) % Plt Count 264 (130-400) K/uL Comprehensive Metabolic Panel 07/31/22 Range/Units 05:32 Sodium 137 (136-145) mmol/L Potassium 4.5 D (3.5-5.1) mmol/L Chloride 97 L (98-107) mmol/L Carbon Dioxide 37 H (21-32) mmol/L BUN 14 (6-23) mg/dl Creatinine 0.57 L (0.6-1.4) mg/dl Glucose 45 L* (70-99(Fasting)) mg/dl Calcium 8.0 L (8.5-10.1) mg/dl Intake and Output 07/30/22 07/31/22 07/31/22 22:59 06:59 14:59 Intake Total 50 / 1516.667 801.667 / 1516.667 Output Total 300 / 1400 800 / 1400 Balance -250 / 116.667 1.667 / 116.667 Intake: IV 50 / 961.667 801.667 / 961.667 ACETAMINOPHEN 10MG/ML Custom 65 / 65 650 mg In Empty Bag 0 ml @ 260 mls/hr IV NOW ONE Rx#:[id number] Albumin 25% 12.5 gm In 50 ml @ 50 / 50 50 mls/hr IV ONE ONE Rx#: [id number] Doxycycline Hyclate 100 mg In 110 / 220 Dextrose 5% 100 ml @ 50 mls/hr IV Q12H [facility] Rx#:[id number] Magnesium Sulfate / D5w 1 gm In 191.667 / 191.667 100 ml @ 50 mls/hr IV Q2H [facility] Rx#:[id number] Potassium Chloride / Wtr 10 meq 385.000 / 385.000 In 100 ml @ 100 mls/hr IV Q1H [facility] Rx#:[id number] cefTRIAXone SODIUM 1,000 mg In 50 / 50 Dextrose 5% Ad-Van 50 ml @ 100 mls/hr IV Q24H [facility] Rx#:[id number] Output: Urine Amount (Catheter) 300 / 1400 800 / 1400 De La Cruz/Indwelling 300 / 1400 800 / 1400 Other: Weight 49.9 kg Weight Measurement Method Built in [facility]
[2022-08-01] MEDS: ERTAPENEM SODIUM 1,000 MG in SYRINGE 0 ML IV SCH (01:04)
[2022-08-01] MEDS: IPRATROPIUM BROMIDE NEB SOLN 0.02% 2.5 ML VIAL INH SCH ×4 (04:44→20:09)
[2022-08-01] MEDS: LEVALBUTEROL 1.25MG/0.5ML NEB INH SCH ×4 (04:45→20:09)
[2022-08-01 07:19] LABS: Calcium 8.6 mg/dl (8.5-10.1); Potassium 4.5 mmol/L (3.5-5.1)
[2022-08-01 07:24] LABS: BUN Creatinine Ratio 31.5 (10-20); Creatinine Clr Calc Pharmacy 93.9 ml/min; Est GFR (African American) 125.9 ml/min; Est GFR (Non-African American) 108.6 ml/min
[2022-08-01] MEDS: APIXABAN 5 MG TABLET PO SCH ×2 (08:11→19:48)
[2022-08-01] MEDS: AMIODARONE 200 MG TAB PO SCH (08:11)
[2022-08-01] MEDS: EMPAGLIFLOZIN 10 MG TAB PO SCH (08:12)
[2022-08-01] MEDS: ATORVASTATIN 40 MG TAB PO SCH (08:12)
[2022-08-01] MEDS: CLOPIDOGREL BISULFATE 75 MG TAB PO SCH (08:12)
[2022-08-01] MEDS: THIAMINE HCL 100 MG TAB PO SCH (08:13)
[2022-08-01] MEDS: PANTOprazole 40 MG TAB PO SCH (08:13)
[2022-08-01] MEDS: UMECLIDINIUM BROMIDE 62.5MCG/BLISTER 7 PUFFS/INHALER INH SCH (08:13)
[2022-08-01] MEDS: MAGNESIUM OXIDE 400 MG TAB PO SCH ×2 (08:13→19:48)
[2022-08-01] MEDS: FLUTICASONE/VILANTEROL 100/25MCG 14 PUFFS/INHALER INH SCH (08:14)
[2022-08-01] MEDS ORDERED: FUROSEMIDE 20 MG TAB PO SCH (09:00)
[2022-08-01] MEDS ORDERED: predniSONE 20 MG TAB PO SCH (09:00)
[2022-08-01] MEDS ORDERED: FUROSEMIDE INJ 20 MG/2 ML VIAL IV ONE (09:31)
[2022-08-01] MEDS ORDERED: FORMOTEROL 20 MCG/2 ML VIAL NEB SCH (09:45)
[2022-08-01] MEDS: methylPREDNISolone 40 MG in SYRINGE 0 ML IV SCH ×2 (11:27→19:48)
--- NOTE | 2022-08-01 11:43 | Cardiology Progress Note ---
Date of Service August 01, 2022 Assessment & Plan (1) Heart failure with reduced ejection fraction: (2) Ischemic cardiomyopathy: (3) Acute respiratory failure with hypoxia and hypercapnia: Plan -Resume oral furosemide 20 mg PO daily. -Continue to hold Entresto for now. -Continue positive pressure ventilation for CO2 retention. -In SR, continue Eliquis. Admission and Anticipated Discharge Date Admission Date: July 24, 2022 Subjective Patient seen in follow up. He is on BiPap napping and is comfortable. Telemetry reveals SR in the 80s. Physical Exam Constitutional: + ill appearing and + cachectic Respiratory: no respiratory distress and no labored breathing Auscultation: + diminished lung sounds, + rhonchi and + wheezes Cardiovascular: Rate/Rhythm: regular rate and regular rhythm Vessels: + JVD Extremities: no edema Gastrointestinal (Abdomen): normal bowel sounds, soft, nontender, no hepatosplenomegaly Musculoskeletal: Extremities: + muscle atrophy Neurologic: PERRL, EOMI, accommodation nl, no face palsy, no dysarthria Results & Data ([facility]) Vital Signs (Past 12 Hours) Vital Signs Temp Pulse Pulse Resp BP Pulse Ox O2 Del Method 08/01/22 09:47 93 H 37 H 100 08/01/22 09:46 93 H 37 H 100 BiPAP 08/01/22 07:58 37.0 C 86 18 115/76 94 Nasal Cannula 08/01/22 05:12 90 Nasal Cannula 08/01/22 02:28 37.3 C 85 19 97/64 L 95 Nasal Cannula 08/01/22 01:00 95 Nasal Cannula O2 Flow Rate FiO2 08/01/22 09:47 40 08/01/22 09:46 40 08/01/22 07:58 5 08/01/22 05:12 3 08/01/22 02:28 4 08/01/22 01:00 4 Laboratory Results Comprehensive Metabolic Panel 08/01/22 Range/Units 05:56 Sodium 139 (136-145) mmol/L Potassium 4.5 (3.5-5.1) mmol/L Chloride 98 (98-107) mmol/L Carbon Dioxide 39 H (21-32) mmol/L BUN 17 (6-23) mg/dl Creatinine 0.54 L (0.6-1.4) mg/dl Glucose 94 (70-99(Fasting)) mg/dl Calcium 8.6 (8.5-10.1) mg/dl Intake and Output 07/31/22 08/01/22 08/01/22 22:59 06:59 14:59 Output Total 400 / 1050 250 / 1050 Balance -400 / -730 -250 / -730 Output: Urine Amount (Catheter) 400 / 1050 250 / 1050 De La Cruz/Indwelling 400 / 1050 250 / 1050 Other: Weight 50 kg Weight Measurement Method Built in [facility]
--- NOTE | 2022-08-01 12:13 | Hospitalist Progress Note ---
Date of Service August 01, 2022 Assessment & Plan (1) Respiratory failure with hypoxia and hypercapnia: Plan: Multifactorial; acute on chronic systolic heart failure, COPD exacerbation. History of HFrEF, COPD on inhalers X-ray done on 07/31 shows persistent pulmonary edema with small bilateral pleural effusion, emphysema On examination; decreased air entry with wheeze present. Pro-Patrick elevated Plan; Patient was given IV Lasix today morning as his blood pressure was slightly improved. We will start him on p.o. Lasix 20 mg once daily as per Cardiology reccs. BiPAP ordered until lunch due to increased work of breathing. Patient reports improvement in shortness of breath while on BiPAP. Continue on his scheduled nebs, IV methylprednisolone 40 mg twice daily ordered. Patient on ertapenem since 07/31. Complete 5-day course. Strict input and output, daily weights. (2) Acute on chronic heart failure with reduced ejection fraction and diastolic dysfunction: Plan: He is a history of cardiogenic shock/ NSTEMI in the last couple of months and ischemic cardiomyopathy. PAF anticoagulated on Eliquis. Had initially required dobutamine. Currently off it. Entresto on hold due to low blood pressure. (3) Metabolic alkalosis: Plan: resolved. He was given acetazolamide when he was admitted initially. (4) Hematuria: Plan: Patient has indwelling De La Cruz with dark red urine. On Eliquis for PAF Hemoglobin stable Obtain urine analysis. Urology consulted. (5) CAD (coronary artery disease): Plan: 05/31/2022: NSTEMI, cardiogenic shock. S/p cardiac cath which showed severe multivessel CAD and was transferred to [facility]. Had multivessel PCI at [facility]. On atorvastatin, Plavix. No chest pain or active ACS at this time. Continue current medication. (6) Paroxysmal atrial fibrillation: Plan: Currently in sinus rhythm, continue amiodarone Eliquis as noted above. (7) COPD (chronic obstructive pulmonary disease): Plan: On examination, he has decreased air entry and occasional wheeze. Continue with scheduled nebulization Continue home inhalers On IV steroid; will complete 5-day course. (8) Anemia: Plan: H/H has fallen since Jun 2022 (14.4/42 --> 8.5/27). Noticed to have hematuria. Urology consulted DVT Prophylaxis On Eliquis Disposition PCU; currently has significant respiratory distress. Continue current treatment. PT OT recommends rehab. Full Code Admission and Anticipated Discharge Date Admission Date: July 24, 2022 Subjective Patient seen and examined at bedside. He appears to be in significant respiratory distress; difficulty completing full sentences. He has a De La Cruz with red urine; is not able to tell when the De La Cruz was placed. Blood pressure is slightly improved today; Lasix 40 mg IV ordered. Patient to be placed on BiPAP. Schedule nebs, IV steroids are also ordered. Review of Systems Review of Systems: All systems reviewed & are unremarkable except as noted in Subjective Physical Exam 2 Physical Exam: Constitutional: Alert orient x3; in significant respiratory distress. Head: Normocephalic, Atraumatic Respiratory: Bilateral decreased air entry. Occasional wheeze. Cardiovascular: RRR, no murmur, no edema Vessels: no JVD or carotid bruit Chest: normal inspection of chest Abdomen: normal bowel sounds, soft, nontender, no hepatosplenomegaly. De La Cruz in place with red urine. Musculoskeletal: no cyanosis or clubbing, extremities motor strength 5/5 Skin: no rashes, warm and dry normal turgor Neurologic: PERRL, EOMI, accommodation nl, no face palsy, no dysarthria CN's II- XI intact bilaterally and moves all extremities Psychiatric: A+Ox3, euthymic affect Lymphatic: no cervical or axillary lymphadenopathy : deferred Results & Data Results & Data ([facility]) Vital Signs (Past 12 Hours) Vital Signs Temp Pulse Pulse Resp BP Pulse Ox O2 Del Method 08/01/22 11:43 36.8 C 82 18 98/71 L 98 BiPAP 08/01/22 09:47 93 H 37 H 100 08/01/22 09:46 93 H 37 H 100 BiPAP 08/01/22 07:58 37.0 C 86 18 115/76 94 Nasal Cannula 08/01/22 05:12 90 Nasal Cannula 08/01/22 02:28 37.3 C 85 19 97/64 L 95 Nasal Cannula 08/01/22 01:00 95 Nasal Cannula O2 Flow Rate FiO2 08/01/22 11:43 08/01/22 09:47 40 08/01/22 09:46 40 08/01/22 07:58 5 08/01/22 05:12 3 08/01/22 02:28 4 08/01/22 01:00 4 Laboratory Results Laboratory Results WBC 10.21 K/ul (4.8-10.8) 07/31/22 05:32 RBC 3.12 M/uL (4.70-6.10) L 07/31/22 05:32 Hgb 9.3 g/dl (14.0-18.0) L 07/31/22 05:32 POC Hgb 11.6 g/dl (14.0-18.0) L 07/24/22 12:03 Hct 29.4 % (42.0-52.0) L 07/31/22 05:32 POC Hct 34 % (42-52) L 07/24/22 12:03 MCV 94.2 fL (80.0-100.0) 07/31/22 05:32 MCH 29.8 pg (25.0-34.0) 07/31/22 05:32 MCHC 31.6 g/dL (32.0-36.0) L 07/31/22 05:32 RDW Std Deviation 53.3 fL (36.4-46.3) H 07/31/22 05:32 RDW Coeff of Gordon 15.4 % (11.5-14.5) H 07/31/22 05:32 Plt Count 264 K/uL (130-400) 07/31/22 05:32 MPV 9.7 fL (9.4-12.4) 07/31/22 05:32 Immature Gran % (Auto) 0.5 % 07/28/22 03:55 Neut % (Auto) 84.8 % 07/28/22 03:55 Lymph % (Auto) 7.8 % 07/28/22 03:55 Greenwood % (Auto) 6.4 % 07/28/22 03:55 Eos % (Auto) 0.4 % 07/28/22 03:55 Baso % (Auto) 0.1 % 07/28/22 03:55 Neut # (Auto) 8.12 K/uL (1.40-6.50) H 07/28/22 03:55 Lymph # (Auto) 0.75 K/uL (1.2-3.4) L 07/28/22 03:55 Greenwood # (Auto) 0.61 K/uL (0.11-0.59) H 07/28/22 03:55 Eos # (Auto) 0.04 K/uL (0-0.50) 07/28/22 03:55 Baso # (Auto) 0.01 K/uL (0-0.2) 07/28/22 03:55 Immature Gran # (Auto) 0.05 K/uL (0.01-0.20) 07/28/22 03:55 Peripher Smr Path Cons 07/28/22 03:55 PT 11.8 Seconds (9.0-12.0) 07/26/22 18:30 INR 1.1 (0.9-1.1) 07/26/22 18:30 APTT 57.2 Seconds (21.0-31.0) H* 07/27/22 04:48 PTT Ratio 2.1 07/27/22 04:48 Sample Site R Radial 07/27/22 10:08 POC pH 7.48 (7.35-7.45) H 07/27/22 10:08 POC pCO2 50 mmHg (35-46) H 07/27/22 10:08 POC pO2 49 mmHg (80-95) L 07/27/22 10:08 POC HCO3 37 cristian/L (19-24) H 07/27/22 10:08 POC Total CO2 39 mmol/L (24-31) H 07/27/22 10:08 POC Base Excess 14.0 cristian/L (-9-1.8) H 07/27/22 10:08 ABG pH 7.30 (7.35-7.45) L 07/31/22 02:43 ABG pCO2 66 mmHg (35-46) H 07/31/22 02:43 ABG pO2 59 mmHg (80-95) L 07/31/22 02:43 ABG HCO3 33 mmol/L (19-24) H 07/31/22 02:43 POC ABG O2 Sat 86.0 % (90-95) L 07/27/22 10:08 ABG O2 Saturation 88.3 % (90-95) L 07/31/22 02:43 ABG Base Excess 4.0 mEq/L (-9-1.8) H 07/31/22 02:43 Horace Test Pos (Pos) 07/31/22 02:43 VBG pH 7.36 (7.36-7.41) 07/26/22 09:28 VBG pCO2 83 mmHg (38-50) H 07/24/22 12:07 VBG pO2 40 mmHg 07/24/22 12:07 VBG HCO3 35 mmol/L 07/24/22 12:07 VBG O2 Saturation < 60.0 % 07/24/22 12:07 VBG Base Excess 4.4 mEq/L 07/24/22 12:07 Oxygen Given 60% FI02 07/31/22 02:43 O2 Delivery Device Cannula 07/27/22 10:08 POC Sodium 133 mmol/L (135-144) L 07/24/22 12:03 Sodium 139 mmol/L (136-145) 08/01/22 05:56 POC Potassium 4.2 mmol/L (3.3-5.0) 07/24/22 12:03 Potassium 4.5 mmol/L (3.5-5.1) 08/01/22 05:56 POC Chloride 91 mmol/L (101-112) L 07/24/22 12:03 Chloride 98 mmol/L (98-107) 08/01/22 05:56 Carbon Dioxide 39 mmol/L (21-32) H 08/01/22 05:56 POC Total CO2 36 mmol/L (24-31) H 07/24/22 12:03 Anion Gap 2 (3-11) L 08/01/22 05:56 POC Anion Gap 11.0 mmol/L (16-25) L 07/24/22 12:03 POC BUN 18 mg/dl (7-18) 07/24/22 12:03 BUN 17 mg/dl (6-23) 08/01/22 05:56 Creatinine 0.54 mg/dl (0.6-1.4) L 08/01/22 05:56 POC Creatinine 0.5 mg/dl (0.6-1.3) L 07/24/22 12:03 Est Cr Clr Drug Dosing 93.9 ml/min 08/01/22 05:56 Est GFR ( Amer) 125.9 ml/min 08/01/22 05:56 Est GFR (Non-Af Amer) 108.6 ml/min 08/01/22 05:56 BUN/Creatinine Ratio 31.5 (10-20) H 08/01/22 05:56 Glucose 94 mg/dl (70-99(Fasting)) 08/01/22 05:56 POC Glucose 121 mg/dl (70-99) H 07/31/22 16:08 POC Glucose (other) 140 mg/dl (70-99) H 07/24/22 12:03 Lactate 0.9 mmol/L (0.4-2.0) 07/26/22 17:15 Calcium 8.6 mg/dl (8.5-10.1) 08/01/22 05:56 POC Ioniz Calcium Amee 1.10 mmol/l (1.12-1.32) L 07/24/22 12:03 Phosphorus 2.3 mg/dl (2.5-4.9) L 07/30/22 05:45 Magnesium 1.7 mg/dl (1.7-2.4) 07/30/22 05:45 Iron 38 mcg/dl (35-175) 07/29/22 04:23 Unsaturated IBC 180 mcg/dl (155-355) 07/29/22 04:23 Ferritin 825.9 ng/ml (8-388) H 07/29/22 04:23 Total Bilirubin 0.7 mg/dl (0.2-1.0) D 07/26/22 04:35 Direct Bilirubin 0.4 mg/dl (0-0.2) H 07/24/22 11:50 AST 21 U/L (13-39) 07/26/22 04:35 ALT 28 U/L (7-52) 07/26/22 04:35 Alkaline Phosphatase 71 U/L (34-104) 07/26/22 04:35 Troponin I High Sens 29.5 pg/ml (0-20) H D 07/24/22 22:51 B-Natriuretic Peptide 2135 pg/ml (0-100) H 07/29/22 04:23 Total Protein 5.6 gm/dl (6.0-8.3) L 07/26/22 04:35 Albumin 3.4 gm/dl (3.4-5.0) 07/26/22 04:35 Globulin 2.2 gm/dl (2.5-4.0) L 07/26/22 04:35 Albumin/Globulin Ratio 1.5 (0.9-2) 07/26/22 04:35 Vitamin B12 308 pg/ml (180-914) 07/29/22 04:23 Folate 9.18 ng/ml (>5.38) 07/29/22 04:23 Procalcitonin 0.71 ng/ml (0-0.5) H 08/01/22 08:34 Urine Color Yellow 07/24/22 13:35 Urine Appearance Clear (Clear) 07/24/22 13:35 Urine pH 6.0 (4.5-7.5) 07/24/22 13:35 Ur Specific Martin 1.020 (1.000-1.030) 07/24/22 13:35 Urine Protein Trace (Negative) H 07/24/22 13:35 Urine Glucose (UA) 3+ (Negative) H 07/24/22 13:35 Urine Ketones Negative (Negative) 07/24/22 13:35 Urine Blood Negative (Negative) 07/24/22 13:35 Urine Nitrite Negative (Negative) 07/24/22 13:35 Urine Bilirubin Negative (Negative) 07/24/22 13:35 Urine Urobilinogen Negative (Negative) 07/24/22 13:35 Ur Leukocyte Esterase Negative (Negative) 07/24/22 13:35 Urine WBC (Auto) 1-5 /hpf (0-5) 07/24/22 13:35 Urine RBC (Auto) 0-4 /hpf (0-4) 07/24/22 13:35 U Hyaline Cast (Auto) 1-5 /lpf (0-5) 07/24/22 13:35 U Epithel Cells (Auto) 5-10 /lpf (0-5) H 07/24/22 13:35 Urine Bacteria (Auto) Negative (Negative) 07/24/22 13:35 Nasal Screen MRSA (PCR) Negative (Negative) 07/24/22 16:30 Ethyl Alcohol mg/dL < 10.0 mg/dl (<10.0) 07/24/22 12:00 Adenovirus (PCR) Not Detected (NotDetected) 07/26/22 Unknown B. pertussis DNA (PCR) Not Detected (NotDetected) 07/26/22 Unknown B.parapertussis DNA PCR Not Detected (NotDetected) 07/26/22 Unknown C. pneumoniae DNA (PCR) Not Detected (NotDetected) 07/26/22 Unknown Coronavirus OC43 (PCR) Not Detected (NotDetected) 07/26/22 Unknown Coronavirus HKU1 (PCR) Not Detected (NotDetected) 07/26/22 Unknown Coronavirus 229E (PCR) Not Detected (NotDetected) 07/26/22 Unknown SARS-CoV-2 (PCR) Not Detected (NotDetected) 07/26/22 Unknown Coronavirus NL63 (PCR) Not Detected (NotDetected) 07/26/22 Unknown Human Metapneumovir PCR Not Detected (NotDetected) 07/26/22 Unknown Influenza Type A (PCR) Not Detected (NotDetected) 07/26/22 Unknown Influenza Type B (PCR) Not Detected (NotDetected) 07/26/22 Unknown Urine Legionella Ag SEE NOTE 07/26/22 Unknown M. pneumoniae (PCR) Not Detected (NotDetected) 07/26/22 Unknown Parainfluenza 1 (PCR) Not Detected (NotDetected) 07/26/22 Unknown Parainfluenza 2 (PCR) Not Detected (NotDetected) 07/26/22 Unknown Parainfluenza 3 (PCR) Not Detected (NotDetected) 07/26/22 Unknown Parainfluenza 4 (PCR) Not Detected (NotDetected) 07/26/22 Unknown RSV (RT-PCR) Negative (Neg) 07/24/22 11:50 RSV (PCR) Not Detected (NotDetected) 07/26/22 Unknown Entero/Rhino (PCR) Not Detected (NotDetected) 07/26/22 Unknown Blood Type O Positive 07/29/22 11:12 Blood Type Recheck O Positive 07/29/22 04:22 Antibody Screen NEGATIVE 07/29/22 11:12 Crossmatch See Detail 07/29/22 11:12 Impressions Chest X-Ray 07/31/22 00:45 XR chest 1V portable CLINICAL HISTORY: Shortness of breath. COMPARISON STUDY: Chest radiograph July 29, 2022. FINDINGS: Right axillary surgical clips are noted. Small bilateral pleural effusions with bibasilar opacities persist. There is no pneumothorax. There is persistent interstitial thickening. Cardiomediastinal silhouette is stable. Underlying emphysema. IMPRESSION: 1. Persistent pulmonary edema with small bilateral pleural effusions and associated bibasilar opacities which could reflect pneumonia or atelectasis. 2. Emphysema. 3. Cardiomegaly. ACT 112: Negative or not required by law. Electronically signed by: Oc Huggins M.D. 07/31/2022 8:59 AM (1) Respiratory failure with hypoxia and hypercapnia Chronicity: acute on chronic Qualified Code(s): J96.21 - Acute and chronic respiratory failure with hypoxia; J96.22 - Acute and chronic respiratory failure with hypercapnia; J96.22 - Acute and chronic respiratory failure with hypercapnia
--- NOTE | 2022-08-01 14:31 | Nephrology Consultation ---
Date of Consultation August 01, 2022 Assessment & Plan (1) Metabolic alkalosis: compensating for respiratory acidosis, the latter which we will likely never correct only manage. K acceptable given his baseline in low to mid 30s (new this month) for bicarb, would be somewhat permissive about higher eupper limit of bicarb in diuresing > to 40 or 41 if needed -continue lasix -dose diamoxx when needed -daily bmp while in house -continue bipap as needed History of Present Illness Reason for Consultation: metabolic alkalosis Requesting Physician: Dr Morris Attending Physician: Don Cortez MD History of Present Illness 66 y/o M whom I'm asked to see for metabolic alkalosis was admitted 07/24 with acute hypoxemic and hypercapnic respiratory failure in the setting of combined systolic and diastolic HF exacerbation. 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 [place] 20[place] [facility] [place] and COPD exacerbation, cardiogenic shock and underwent multivessel PCI, intraaortic balloon pump. also hospitalized here 07/08-07/15 for acute respiratory failure and acute on chronic HF w/ PNA needing Bipap and diuresis. He was d/c home on 2L 02NC at rest and 4L w/ exertion. He has had IV lasix near daily since arrival and po lasix if no IV every day except 07/27 since admission. on that day he had 2 doses of diamoxx 250 mg po. also had chlorothiazide IV on 07/26. His bicarb has ranged from 29-39 this admission, mostly mid to high 30s. aBG as below he tells me his breathing is steady/ok, no pain, no n/v, no edema; no voiding concerns. he is on bipap at time of our interview which limits his responses somewhat. Allergies Allergy/AdvReac Type Severity Reaction Status Date / Time piperacillin [From Zosyn] Allergy Unknown ON Verified 07/08/22 02:26 [facility] tazobactam [From Zosyn] Allergy Unknown ON Verified 07/08/22 02:26 [facility] Home Medications Medication Instructions Recorded Confirmed Type albuterol sulfate 2.5 mg/3 mL 1.25 mg (1.5 mL) inhalation Q4H 07/15/22 07/24/22 Rx (0.083 %) solution for nebulization PRN bronchospasm #90 mL budesonide-formoterol HFA 80 1 inh inhalation BID #10.2 grams 07/15/22 07/24/22 Rx mcg-4.5 mcg/actuation aerosol inhaler (Symbicort) magnesium oxide 400 mg (241.3 mg 400 mg PO DAILY #30 tabs 07/15/22 07/24/22 Rx magnesium) tablet tiotropium bromide 18 mcg capsule 1 cap inhalation DAILY #30 07/15/22 07/24/22 Rx with inhalation device (Spiriva inhalations with HandiHaler) albuterol sulfate 90 mcg/actuation 2 puff inhalation Q4H PRN 07/18/22 07/24/22 Rx aerosol inhaler Shortness Of Breath Or Wheezing #8.5 grams amiodarone 200 mg tablet 200 mg PO DAILY 30 days #30 tabs 07/18/22 07/24/22 Rx apixaban 5 mg tablet (Eliquis) 5 mg PO BID #60 tabs 07/18/22 07/24/22 Rx atorvastatin 80 mg tablet 80 mg PO DAILY 30 days #30 tabs 07/18/22 07/24/22 Rx clopidogrel 75 mg tablet (Plavix) 75 mg PO DAILY 30 days #30 tabs 07/18/22 07/24/22 Rx empagliflozin 10 mg tablet 10 mg PO QAM #30 tabs 07/18/22 07/24/22 Rx (Jardiance) furosemide 20 mg tablet (Lasix) 20 mg PO QAM 30 days #30 tabs 07/18/22 07/24/22 Rx iron,carbonyl 65 mg-vitamin C 125 1 tab PO DAILY 07/24/22 07/24/22 History mg tablet,delayed release (Vitron-C) omeprazole 20 mg capsule,delayed 20 mg PO DAILY 07/24/22 07/24/22 History release potassium chloride 20 mEq 20 meq PO DAILY 07/24/22 07/24/22 History tablet,extended release(part/cryst) sacubitril 24 mg-valsartan 26 mg 1 tab PO BID 07/24/22 07/29/22 History tablet Patient History Medical History Advanced care planning/counseling discussion Alcohol use disorder CAD (coronary artery disease) Multivessel disease COPD (chronic obstructive pulmonary disease) Diabetes mellitus, type II Heart failure with reduced ejection fraction HTN (hypertension) Ischemic cardiomyopathy Lung nodule NSTEMI (non-ST elevation myocardial infarction) Palliative care encounter Paroxysmal atrial fibrillation Surgical History Hx of colonoscopy Family History Other Cancer Hypertension Social History Smoking Status: Former smoker Tobacco Type: Cigarettes Hx Alcohol Use: Yes Alcohol type: beer Alcohol type Comment: 5 beers nightly, last drink 05/30/22 Hx Substance Use: No Preferred Language: Trinidadian Communication Ability: Effective Design Inserter Required: No Beliefs That Will Affect Care: Shinto Current Living Situation: Family Other Information That Helps Us Care for You: No Feels Safe at Home: Yes Safety Concerns: Feels Safe At This Time Assistive Devices: Cane, Denture - Upper, Denture - Lower, Oxygen - Continuous and Walker Review of Systems Review of Systems: All systems reviewed & are unremarkable except as noted in HPI & below Physical Exam Constitutional: well developed, + cachectic, + frail appearing and cooperative Eyes: EOM intact bilaterally ENMT: Ears: no external ear abnormality Nose: no external nose abnormality Neck: no nuchal rigidity Respiratory: normal respiratory effort Auscultation: + diminished lung sounds, + rhonchi and + wheezes Cardiovascular: Rate/Rhythm: regular rate and regular rhythm Extremities: no edema Gastrointestinal (Abdomen): Inspection/Auscultation: normal bowel sounds Percussion/Palpation: abdomen soft; abdomen nontender Musculoskeletal: Extremities: strength 5/5 throughout Skin: no rashes, warm and dry Neurologic: morales, fluent speech, no tremor Genitourinary: dutton w/ ample urine Results & Data ([facility]) Vital Signs (Past 12 Hours) Vital Signs Temp Pulse Pulse Resp BP Pulse Ox O2 Del Method 08/01/22 13:18 84 29 H 97 08/01/22 11:43 36.8 C 82 18 98/71 L 98 BiPAP 08/01/22 09:47 93 H 37 H 100 08/01/22 09:46 93 H 37 H 100 BiPAP 08/01/22 07:58 37.0 C 86 18 115/76 94 Nasal Cannula 08/01/22 05:12 90 Nasal Cannula 08/01/22 02:28 37.3 C 85 19 97/64 L 95 Nasal Cannula O2 Flow Rate FiO2 08/01/22 13:18 40 08/01/22 11:43 08/01/22 09:47 40 08/01/22 09:46 40 08/01/22 07:58 5 08/01/22 05:12 3 08/01/22 02:28 4 Laboratory Results 07/31/22 05:32 08/01/22 05:56 07/31/22 ABGs reviewed Diagnostic Findings cxr 07/31 reviewed
--- NOTE | 2022-08-01 14:39 | Urology Consultation ---
Date of Consultation August 01, 2022 Assessment & Plan (1) Hematuria: 66-year-old male with complicated medical history admitted for acute on chronic respiratory failure and acute on chronic heart failure. Urology is consulted for evaluation of gross hematuria. He is afebrile. Lab work reviewed - creatinine 0.54, WBC 10.21, hemoglobin 9.3 (1 unit of PRBC on 07/29). UA on arrival showed 0-4 RBCs, prior UAs on chart from 05/31/22 and 07/08/22 also showed 0-4 RBCs. No pending urine culture. Blood cultures showed no growth. He is on IV ertapenem at present, also treated with Rocephin and doxycycline this admission. Hematuria may be due to presence of catheter in the setting of anticoagulation. He is on anticoagulation for recent cardiac events and a-fib. Continue anticoagulation per primary/cardiology teams. Urology will manage hematuria. It appears to be clearing. No acute urologic intervention warranted at this time. Recommend discontinue De La Cruz catheter and monitor for void. Bladder scan prn. We discussed hematuria in detail. We discussed that there can be several benign causes, however hematuria is never considered normal. We reviewed the work-up for gross hematuria, including urine culture, cytology, cystoscopy and imaging of the upper urinary tracts with a CT urogram. Hematuria work-up can be done as an outpatient. will follow. History of Present Illness Attending Physician: Don Cortez MD History of Present Illness This is a 66-year-old male with complex medical history including recent NSTEMI, CAD s/p multiple stents, CHF, cardiogenic shock, ischemic cardiomyopathy, atrial fibrillation on Eliquis, and chest wall hematoma who presented for shortness of breath and was admitted for acute respiratory failure and acute on chronic heart failure. Urology is consulted for evaluation of hematuria. Patient was admitted to [facility] 05/31/2022 for acute respiratory failure, NSTEMI, cardiogenic shock, CHF, COPD exacerbation. He had urgent cardiac cath which showed severe multivessel CAD and was transferred to [facility] [place]. He underwent multivessel PCI. Hospital course was complicated by hemorrhagic shock and cardiogenic shock. He was intubated for pulmonary edema and treated for pneumonia. Had new onset A. fib during hospitalization. He was hospitalized again at [facility] from 07/08/2022-07/15/22 for acute respiratory failure, acute on chronic CHF, pneumonia. He presented to [facility] ED on 07/24/22 with shortness of breath and hypoxic in the 70s at home. He was admitted for respiratory failure secondary to acute on chronic heart failure and COPD exacerbation. Chart review: Afebrile Labs reviewed - Creatinine - 0.54 WBC - 10.21 Hgb - 9.3 Blood cultures - no growth x 5 days UA on admission showed trace protein, 3+ glucose, 1-5 WBC, 0-4 RBC, 5-10 epithelials, negative bacteria Currently on IV Ertapenem, previously was on Rocephin and Doxycycline Per chart review, catheter was inserted on arrival to ED on 07/24. Patient seen and examined at bedside in PCU. He is resting in bed with Bipap on, in no apparent distress. He arouses to his name. De La Cruz catheter patent and draining clear light pink urine. Recently had diuretics per nursing. No dysuria. He denies prior history of hematuria. No abdominal, flank or suprapubic pain. No nausea or vomiting. No fever or chills. Per chart review, De La Cruz was placed in ER on arrival. He denies voiding difficulties at baseline. He denies history of kidney stones. No family history of malignancy. Allergies Allergy/AdvReac Type Severity Reaction Status Date / Time piperacillin [From Zosyn] Allergy Unknown ON Verified 07/08/22 02:26 [facility] tazobactam [From Zosyn] Allergy Unknown ON Verified 07/08/22 02:26 [facility] Home Medications Medication Instructions Recorded Confirmed Type albuterol sulfate 2.5 mg/3 mL 1.25 mg (1.5 mL) inhalation Q4H 07/15/22 07/24/22 Rx (0.083 %) solution for nebulization PRN bronchospasm #90 mL budesonide-formoterol HFA 80 1 inh inhalation BID #10.2 grams 07/15/22 07/24/22 Rx mcg-4.5 mcg/actuation aerosol inhaler (Symbicort) magnesium oxide 400 mg (241.3 mg 400 mg PO DAILY #30 tabs 07/15/22 07/24/22 Rx magnesium) tablet tiotropium bromide 18 mcg capsule 1 cap inhalation DAILY #30 07/15/22 07/24/22 Rx with inhalation device (Spiriva inhalations with HandiHaler) albuterol sulfate 90 mcg/actuation 2 puff inhalation Q4H PRN 07/18/22 07/24/22 Rx aerosol inhaler Shortness Of Breath Or Wheezing #8.5 grams amiodarone 200 mg tablet 200 mg PO DAILY 30 days #30 tabs 07/18/22 07/24/22 Rx apixaban 5 mg tablet (Eliquis) 5 mg PO BID #60 tabs 07/18/22 07/24/22 Rx atorvastatin 80 mg tablet 80 mg PO DAILY 30 days #30 tabs 07/18/22 07/24/22 Rx clopidogrel 75 mg tablet (Plavix) 75 mg PO DAILY 30 days #30 tabs 07/18/22 07/24/22 Rx empagliflozin 10 mg tablet 10 mg PO QAM #30 tabs 07/18/22 07/24/22 Rx (Jardiance) furosemide 20 mg tablet (Lasix) 20 mg PO QAM 30 days #30 tabs 07/18/22 07/24/22 Rx iron,carbonyl 65 mg-vitamin C 125 1 tab PO DAILY 07/24/22 07/24/22 History mg tablet,delayed release (Vitron-C) omeprazole 20 mg capsule,delayed 20 mg PO DAILY 07/24/22 07/24/22 History release potassium chloride 20 mEq 20 meq PO DAILY 07/24/22 07/24/22 History tablet,extended release(part/cryst) sacubitril 24 mg-valsartan 26 mg 1 tab PO BID 07/24/22 07/29/22 History tablet Patient History Medical History Advanced care planning/counseling discussion Alcohol use disorder CAD (coronary artery disease) Multivessel disease COPD (chronic obstructive pulmonary disease) Diabetes mellitus, type II Heart failure with reduced ejection fraction HTN (hypertension) Ischemic cardiomyopathy Lung nodule NSTEMI (non-ST elevation myocardial infarction) Palliative care encounter Paroxysmal atrial fibrillation Surgical History Hx of colonoscopy Family History Other Cancer Hypertension Social History Smoking Status: Former smoker Tobacco Type: Cigarettes Hx Alcohol Use: Yes Alcohol type: beer Alcohol type Comment: 5 beers nightly, last drink 05/30/22 Hx Substance Use: No Preferred Language: Cambodian Communication Ability: Effective [employer] Laboratory Assistant Required: No Beliefs That Will Affect Care: Adventist Current Living Situation: Family Other Information That Helps Us Care for You: No Feels Safe at Home: Yes Safety Concerns: Feels Safe At This Time Assistive Devices: Cane, Denture - Upper, Denture - Lower, Oxygen - Continuous and Walker Review of Systems Review of Systems: All systems reviewed & are unremarkable except as noted in HPI & below Physical Exam Constitutional: + ill appearing and + thin resting on arrival with Bipap in place, no acute distress Respiratory: + tachypneic; + not able to speak in complete sentence Bipap in place Cardiovascular: Extremities: no pedal edema Gastrointestinal (Abdomen): Inspection/Auscultation: abdomen normal to inspection; abdomen not distended Percussion/Palpation: abdomen soft; abdomen nontender Musculoskeletal: Head/Neck/Chest: normocephalic and head atraumatic Psychiatric: Orientation: alert and oriented x 3 Genitourinary: no CVA tenderness De La Cruz patent and draining clear light pink urine Results & Data ([facility]) Vital Signs (Past 12 Hours) Vital Signs Temp Pulse Pulse Resp BP Pulse Ox O2 Del Method 08/01/22 13:18 84 29 H 97 08/01/22 11:43 36.8 C 82 18 98/71 L 98 BiPAP 08/01/22 09:47 93 H 37 H 100 08/01/22 09:46 93 H 37 H 100 BiPAP 08/01/22 07:58 37.0 C 86 18 115/76 94 Nasal Cannula 08/01/22 05:12 90 Nasal Cannula 08/01/22 02:28 37.3 C 85 19 97/64 L 95 Nasal Cannula O2 Flow Rate FiO2 08/01/22 13:18 40 08/01/22 11:43 08/01/22 09:47 40 08/01/22 09:46 40 08/01/22 07:58 5 08/01/22 05:12 3 08/01/22 02:28 4 PG Care Time/CCT Total # of Minutes Spent Total Time Spent with Patient: Total time spent is greater than 50% in coordination of care (as documented) at patient's floor/unit and/or counseling patient: Coding Level of Care Code 41071 INT INP/OBS CARE MIN Diagnoses Hematuria R31.9
[2022-08-01] MEDS ORDERED: BUDESONIDE 0.5 MG/2 ML VIAL (PULMICORT) NEB SCH (19:00)
[2022-08-01 20:22] LABS: Appearance Urine Cloudy (Clear); Bilirubin Urine Negative (Negative); Blood Urine 2+ (Negative); Color Urine Red; Glucose Urine UA 3+ (Negative); Ketones Urine Negative (Negative); Leukocyte Esterase Urine Negative (Negative); Nitrite Urine Negative (Negative); Protein Urine 1+ (Negative); Urobilinogen Urine Negative (Negative)
[2022-08-01 20:24] LABS: Calcium Oxalate Crystals Urine Present (None Prsent); RBC Urine >30 /hpf (0-4)
[2022-08-01 20:27] LABS: Bacteria Urine Negative (Negative); Epithelial Cell Urine 0-5 /lpf (0-5); WBC Urine 0-5 /hpf (0-5)
[2022-08-02] MEDS: LEVALBUTEROL 1.25MG/0.5ML NEB INH SCH ×2 (01:31→07:15)
[2022-08-02] MEDS: IPRATROPIUM BROMIDE NEB SOLN 0.02% 2.5 ML VIAL INH SCH ×2 (01:31→07:15)
[2022-08-02] MEDS: ERTAPENEM SODIUM 1,000 MG in SYRINGE 0 ML IV SCH (02:14)
[2022-08-02 07:14] LABS: Hematocrit (blood only) 29.2 % (42.0-52.0); Hemoglobin 9.1 g/dl (14.0-18.0); Immature Granulocytes # (auto) 0.03 K/uL (0.01-0.20); Immature Granulocytes % (auto) 0.4 %; Lymphocytes # (auto) 0.61 K/uL (1.2-3.4); Lymphocytes % (auto) 8.6 %; Mean Corpuscular Hemoglobin 29.7 pg (25.0-34.0); Mean Corpuscular Hgb Conc 31.2 g/dL (32.0-36.0); Mean Corpuscular Volume 95.4 fL (80.0-100.0); Mean Platelet Volume 9.8 fL (9.4-12.4); Monocytes # (auto) 0.43 K/uL (0.11-0.59); Neutrophils # (auto) 6.06 K/uL (1.40-6.50); Platelet Count 277 K/uL (130-400); RDW Coefficient of Variation 15.3 % (11.5-14.5); RDW Standard Deviation 54.4 fL (36.4-46.3); Red Blood Count 3.06 M/uL (4.70-6.10); White Blood Count 7.13 K/ul (4.8-10.8)
[2022-08-02 07:35] LABS: BUN Creatinine Ratio 45.2 (10-20); Calcium 8.8 mg/dl (8.5-10.1); Creatinine Clr Calc Pharmacy 120.7 ml/min; Est GFR (African American) 139.6 ml/min; Est GFR (Non-African American) 120.5 ml/min; Potassium 4.8 mmol/L (3.5-5.1)
[2022-08-02] MEDS ORDERED: IPRATROPIUM BROMIDE NEB SOLN 0.02% 2.5 ML VIAL INH PRN (07:59)
[2022-08-02] MEDS ORDERED: LEVALBUTEROL 1.25MG/0.5ML NEB INH PRN (07:59)
--- NOTE | 2022-08-02 08:11 | Nephrology Progress Note ---
Date of Service August 02, 2022 Assessment & Plan (1) Metabolic alkalosis: Plan: compensating for respiratory acidosis, the latter which we will likely never correct only manage. K acceptable given his baseline in low to mid 30s (new this month) for bicarb, would be somewhat permissive about higher upper limit of bicarb in diuresing > to 40 or 41 if needed -continue lasix >> since he has a dutton, recommend lasix 10 mg IV bid for now if cardiology/primary service agree; per I/O charting, pt is >9L negative on the admission -dose diamoxx when needed > if bicarb > 40 -daily bmp while in house -continue positive pressure ventilation to control/improve chronic respiratory acidosis > recommend at least 6 hrs daily ideally to give us room for lasix dosing but defer to primary team Admission and Anticipated Discharge Date Admission Date: July 24, 2022 Subjective no c/o ; feels his pbreating improved; no sob Review of Systems Review of Systems: All systems reviewed & are unremarkable except as noted in Subjective Physical Exam Constitutional: well developed, + cachectic, + frail appearing and cooperative Eyes: EOM intact bilaterally ENMT: Ears: no external ear abnormality Nose: no external nose abnormality Neck: no nuchal rigidity Respiratory: normal respiratory effort and able to speak in complete sentences (but labored in dooing so) Auscultation: + diminished lung sounds and + crackles Cardiovascular: Rate/Rhythm: regular rate and regular rhythm Extremities: no edema Gastrointestinal (Abdomen): Inspection/Auscultation: normal bowel sounds Percussion/Palpation: abdomen soft; abdomen nontender Musculoskeletal: Extremities: strength 5/5 throughout Skin: no rashes, warm and dry Results & Data ([facility]) Vital Signs (Past 12 Hours) Vital Signs Temp Pulse Resp BP Pulse Ox O2 Del Method O2 Flow Rate 08/02/22 07:15 83 20 100 Nasal Cannula 5 08/02/22 03:55 36.6 C 79 25 H 107/62 99 Nasal Cannula 5 08/01/22 23:46 36.7 C 82 24 111/57 L 98 Nasal Cannula 5 08/01/22 22:30 Nasal Cannula, BiPAP Laboratory Results 08/02/22 06:45 08/02/22 06:45
[2022-08-02] MEDS: CLOPIDOGREL BISULFATE 75 MG TAB PO SCH (08:35)
[2022-08-02] MEDS: APIXABAN 5 MG TABLET PO SCH ×2 (08:35→19:26)
[2022-08-02] MEDS: MAGNESIUM OXIDE 400 MG TAB PO SCH ×2 (08:35→19:26)
[2022-08-02] MEDS: ATORVASTATIN 40 MG TAB PO SCH (08:35)
[2022-08-02] MEDS: PANTOprazole 40 MG TAB PO SCH (08:35)
[2022-08-02] MEDS: methylPREDNISolone 40 MG in SYRINGE 0 ML IV SCH ×2 (08:35→19:26)
[2022-08-02] MEDS: EMPAGLIFLOZIN 10 MG TAB PO SCH (08:36)
[2022-08-02] MEDS: THIAMINE HCL 100 MG TAB PO SCH (08:36)
[2022-08-02] MEDS: AMIODARONE 200 MG TAB PO SCH (08:36)
[2022-08-02] MEDS: FLUTICASONE/VILANTEROL 100/25MCG 14 PUFFS/INHALER INH SCH (08:37)
--- NOTE | 2022-08-02 08:53 | Urology Progress Note ---
Date of Service August 02, 2022 Assessment & Plan (1) Hematuria: Plan: Follow-up of hematuria. Patient subjectively doing well. Afebrile, lab work reviewed - creatinine 0.42, WBC 7.13, Hgb 9.1. De La Cruz catheter intact and draining appropriately with pink to light loco red urine. Urine culture showing pin point growth, reincubating - follow culture. He remains on Ertapenem. Can consider removal of De La Cruz catheter now or prior to discharge as it may be causing irritation/bleeding and exacerbated by anticoagulation. Recommend hematuria work-up, which can be done as an outpatient. Will arrange follow-up with our service. will sign off, contact our service with any questions or concerns. Admission and Anticipated Discharge Date Admission Date: July 24, 2022 Subjective Patient seen and examined at bedside this morning. He is awake and resting in bed, no apparent distress. De La Cruz patent and draining pink to light loco red urine. No abdominal or flank pain. No nausea or vomiting. No fever or chills. Review of Systems Constitutional: as per Subjective / HPI Gastrointestinal: as per Subjective / HPI Genitourinary: + as per Subjective / HPI Physical Exam Constitutional: + thin and comfortable; no acute distress Respiratory: no respiratory distress and no labored breathing O2 via nasal cannula Cardiovascular: Extremities: no pedal edema Gastrointestinal (Abdomen): Inspection/Auscultation: abdomen normal to inspection; abdomen not distended Musculoskeletal: Head/Neck/Chest: normocephalic and head atraumatic Psychiatric: Orientation: alert and oriented x 3 Genitourinary: De La Cruz patent and draining clear pink to light loco urine Results & Data ([facility]) Vital Signs (Past 12 Hours) Vital Signs Temp Pulse Resp BP Pulse Ox O2 Del Method O2 Flow Rate 08/02/22 08:10 36.9 C 85 20 110/59 L 91 Nasal Cannula 08/02/22 07:15 83 20 100 Nasal Cannula 08/02/22 03:55 36.6 C 79 25 H 107/62 99 Nasal Cannula 08/01/22 23:46 36.7 C 82 24 111/57 L 98 Nasal Cannula 08/01/22 22:30 Nasal Cannula, BiPAP PG Care Time/CCT Total # of Minutes Spent Total Time Spent with Patient: Total time spent is greater than 50% in coordination of care (as documented) at patient's floor/unit and/or counseling patient: Coding Level of Care Code 95761 SUB INP/OBS CARE 07/27MIN Diagnoses Hematuria R31.9
--- NOTE | 2022-08-02 10:49 | Hospitalist Progress Note ---
Date of Service August 02, 2022 Assessment & Plan (1) Respiratory failure with hypoxia and hypercapnia: Plan: Multifactorial; acute on chronic systolic heart failure, COPD exacerbation. History of HFrEF, COPD on inhalers X-ray done on 07/31 shows persistent pulmonary edema with small bilateral pleural effusion, emphysema On examination; decreased air entry with wheeze present. Pro-Patrick elevated Plan; We will give him 1 more dose of IV Lasix today afternoon if his blood pressure allows. BiPAP as needed as needed for increased work of breathing. Continue IV steroids; duo nebs as needed. Patient on ertapenem since 07/31. Complete 5-day course. Strict input and output, daily weights. (2) Acute on chronic heart failure with reduced ejection fraction and diastolic dysfunction: Plan: He is a history of cardiogenic shock/ NSTEMI in the last couple of months and ischemic cardiomyopathy. PAF anticoagulated on Eliquis. Had initially required dobutamine. Currently off it. Entresto on hold due to low blood pressure. (3) Metabolic alkalosis: Plan: resolved. He was given acetazolamide when he was admitted initially. (4) Hematuria: Plan: Patient has indwelling De La Cruz with dark red urine. On Eliquis for PAF Hemoglobin stable Urology on board; hematuria work-up to be done as outpatient. (5) CAD (coronary artery disease): Plan: 05/31/2022: NSTEMI, cardiogenic shock. S/p cardiac cath which showed severe multivessel CAD and was transferred to [facility] [place]. Had multivessel PCI at [facility] [place]. On atorvastatin, Plavix. No chest pain or active ACS at this time. Continue current medication. (6) Paroxysmal atrial fibrillation: Plan: Currently in sinus rhythm, continue amiodarone Eliquis as noted above. (7) COPD (chronic obstructive pulmonary disease): Plan: On examination, he has decreased air entry and occasional wheeze. Continue with scheduled nebulization Continue home inhalers On IV steroid; will complete 5-day course. (8) Anemia: Plan: H/H has fallen since Jun 2022 (14.4/42 --> 8.5/27). Noticed to have hematuria. Urology consulted DVT Prophylaxis On Eliquis Disposition PCU; currently has significant respiratory distress. Continue current treatment. PT OT recommends rehab. Full Code Admission and Anticipated Discharge Date Admission Date: July 24, 2022 Subjective Patient seen and examined at bedside. He reports that his shortness of breath has improved compared to yesterday. He did not require BiPAP overnight. His urine output is 600 cc in last 24 hours. Urine continues to be light pink in color. Review of Systems Review of Systems: All systems reviewed & are unremarkable except as noted in Subjective Physical Exam Physical Exam: Constitutional: Alert orient x3; in significant respiratory distress. Head: Normocephalic, Atraumatic Respiratory: Decreased air entry bilaterally; slightly improved compared to yesterday. Basilar crackles present. Cardiovascular: RRR, no murmur, no edema Vessels: no JVD or carotid bruit Chest: normal inspection of chest Abdomen: normal bowel sounds, soft, nontender, no hepatosplenomegaly. De La Cruz in place with red urine. Musculoskeletal: no cyanosis or clubbing, extremities motor strength 5/5 Skin: no rashes, warm and dry normal turgor Neurologic: PERRL, EOMI, accommodation nl, no face palsy, no dysarthria CN's II- XI intact bilaterally and moves all extremities Psychiatric: A+Ox3, euthymic affect Lymphatic: no cervical or axillary lymphadenopathy : deferred Results & Data Results & [facility] ([facility]) Vital Signs (Past 12 Hours) Vital Signs Temp Pulse Resp BP Pulse Ox O2 Del Method O2 Flow Rate 08/02/22 08:10 36.9 C 85 20 110/59 L 91 Nasal Cannula 5 08/02/22 07:15 83 20 100 Nasal Cannula 5 08/02/22 03:55 36.6 C 79 25 H 107/62 99 Nasal Cannula 5 08/01/22 23:46 36.7 C 82 24 111/57 L 98 Nasal Cannula 5 Laboratory Results Laboratory Results WBC 7.13 K/ul (4.8-10.8) 08/02/22 06:45 RBC 3.06 M/uL (4.70-6.10) L 08/02/22 06:45 Hgb 9.1 g/dl (14.0-18.0) L 08/02/22 06:45 POC Hgb 11.6 g/dl (14.0-18.0) L 07/24/22 12:03 Hct 29.2 % (42.0-52.0) L 08/02/22 06:45 POC Hct 34 % (42-52) L 07/24/22 12:03 MCV 95.4 fL (80.0-100.0) 08/02/22 06:45 MCH 29.7 pg (25.0-34.0) 08/02/22 06:45 MCHC 31.2 g/dL (32.0-36.0) L 08/02/22 06:45 RDW Std Deviation 54.4 fL (36.4-46.3) H 08/02/22 06:45 RDW Coeff of Gordon 15.3 % (11.5-14.5) H 08/02/22 06:45 Plt Count 277 K/uL (130-400) 08/02/22 06:45 MPV 9.8 fL (9.4-12.4) 08/02/22 06:45 Immature Gran % (Auto) 0.4 % 08/02/22 06:45 Neut % (Auto) 85.0 % 08/02/22 06:45 Lymph % (Auto) 8.6 % 08/02/22 06:45 [place] % (Auto) 6.0 % 08/02/22 06:45 Eos % (Auto) 0.0 % 08/02/22 06:45 Baso % (Auto) 0.0 % 08/02/22 06:45 Neut # (Auto) 6.06 K/uL (1.40-6.50) 08/02/22 06:45 Lymph # (Auto) 0.61 K/uL (1.2-3.4) L 08/02/22 06:45 [place] # (Auto) 0.43 K/uL (0.11-0.59) 08/02/22 06:45 Eos # (Auto) 0.00 K/uL (0-0.50) 08/02/22 06:45 Baso # (Auto) 0.00 K/uL (0-0.2) 08/02/22 06:45 Immature Gran # (Auto) 0.03 K/uL (0.01-0.20) 08/02/22 06:45 Peripher Smr Path Cons 07/28/22 03:55 PT 11.8 Seconds (9.0-12.0) 07/26/22 18:30 INR 1.1 (0.9-1.1) 07/26/22 18:30 APTT 57.2 Seconds (21.0-31.0) H* 07/27/22 04:48 PTT Ratio 2.1 07/27/22 04:48 Sample Site R Radial 07/27/22 10:08 POC pH 7.48 (7.35-7.45) H 07/27/22 10:08 POC pCO2 50 mmHg (35-46) H 07/27/22 10:08 POC pO2 49 mmHg (80-95) L 07/27/22 10:08 POC HCO3 37 cristian/L (19-24) H 07/27/22 10:08 POC Total CO2 39 mmol/L (24-31) H 07/27/22 10:08 POC Base Excess 14.0 cristian/L (-9-1.8) H 07/27/22 10:08 ABG pH 7.30 (7.35-7.45) L 07/31/22 02:43 ABG pCO2 66 mmHg (35-46) H 07/31/22 02:43 ABG pO2 59 mmHg (80-95) L 07/31/22 02:43 ABG HCO3 33 mmol/L (19-24) H 07/31/22 02:43 POC ABG O2 Sat 86.0 % (90-95) L 07/27/22 10:08 ABG O2 Saturation 88.3 % (90-95) L 07/31/22 02:43 ABG Base Excess 4.0 mEq/L (-9-1.8) H 07/31/22 02:43 Horace Test Pos (Pos) 07/31/22 02:43 VBG pH 7.36 (7.36-7.41) 07/26/22 09:28 VBG pCO2 83 mmHg (38-50) H 07/24/22 12:07 VBG pO2 40 mmHg 07/24/22 12:07 VBG HCO3 35 mmol/L 07/24/22 12:07 VBG O2 Saturation < 60.0 % 07/24/22 12:07 VBG Base Excess 4.4 mEq/L 07/24/22 12:07 Oxygen Given 60% FI02 07/31/22 02:43 O2 Delivery Device Cannula 07/27/22 10:08 POC Sodium 133 mmol/L (135-144) L 07/24/22 12:03 Sodium 137 mmol/L (136-145) 08/02/22 06:45 POC Potassium 4.2 mmol/L (3.3-5.0) 07/24/22 12:03 Potassium 4.8 mmol/L (3.5-5.1) 08/02/22 06:45 POC Chloride 91 mmol/L (101-112) L 07/24/22 12:03 Chloride 97 mmol/L (98-107) L 08/02/22 06:45 Carbon Dioxide 37 mmol/L (21-32) H 08/02/22 06:45 POC Total CO2 36 mmol/L (24-31) H 07/24/22 12:03 Anion Gap 3 (3-11) 08/02/22 06:45 POC Anion Gap 11.0 mmol/L (16-25) L 07/24/22 12:03 POC BUN 18 mg/dl (7-18) 07/24/22 12:03 BUN 19 mg/dl (6-23) 08/02/22 06:45 Creatinine 0.42 mg/dl (0.6-1.4) L 08/02/22 06:45 POC Creatinine 0.5 mg/dl (0.6-1.3) L 07/24/22 12:03 Est Cr Clr Drug Dosing 120.7 ml/min 08/02/22 06:45 Est GFR ( Amer) 139.6 ml/min 08/02/22 06:45 Est GFR (Non-Af Amer) 120.5 ml/min 08/02/22 06:45 BUN/Creatinine Ratio 45.2 (10-20) H 08/02/22 06:45 Glucose 122 mg/dl (70-99(Fasting)) H 08/02/22 06:45 POC Glucose 121 mg/dl (70-99) H 07/31/22 16:08 POC Glucose (other) 140 mg/dl (70-99) H 07/24/22 12:03 Lactate 0.9 mmol/L (0.4-2.0) 07/26/22 17:15 Calcium 8.8 mg/dl (8.5-10.1) 08/02/22 06:45 POC Ioniz Calcium Amee 1.10 mmol/l (1.12-1.32) L 07/24/22 12:03 Phosphorus 2.3 mg/dl (2.5-4.9) L 07/30/22 05:45 Magnesium 1.7 mg/dl (1.7-2.4) 07/30/22 05:45 Iron 38 mcg/dl (35-175) 07/29/22 04:23 Unsaturated IBC 180 mcg/dl (155-355) 07/29/22 04:23 Ferritin 825.9 ng/ml (8-388) H 07/29/22 04:23 Total Bilirubin 0.7 mg/dl (0.2-1.0) D 07/26/22 04:35 Direct Bilirubin 0.4 mg/dl (0-0.2) H 07/24/22 11:50 AST 21 U/L (13-39) 07/26/22 04:35 ALT 28 U/L (7-52) 07/26/22 04:35 Alkaline Phosphatase 71 U/L (34-104) 07/26/22 04:35 Troponin I High Sens 29.5 pg/ml (0-20) H D 07/24/22 22:51 B-Natriuretic Peptide 2135 pg/ml (0-100) H 07/29/22 04:23 Total Protein 5.6 gm/dl (6.0-8.3) L 07/26/22 04:35 Albumin 3.4 gm/dl (3.4-5.0) 07/26/22 04:35 Globulin 2.2 gm/dl (2.5-4.0) L 07/26/22 04:35 Albumin/Globulin Ratio 1.5 (0.9-2) 07/26/22 04:35 Vitamin B12 308 pg/ml (180-914) 07/29/22 04:23 Folate 9.18 ng/ml (>5.38) 07/29/22 04:23 Procalcitonin 0.71 ng/ml (0-0.5) H 08/01/22 08:34 Urine Color Red 08/01/22 20:02 Urine Appearance Cloudy (Clear) A 08/01/22 20:02 Urine pH 7.0 (4.5-7.5) 08/01/22 20:02 Ur Specific [place] 1.020 (1.000-1.030) 08/01/22 20:02 Urine Protein 1+ (Negative) H 08/01/22 20:02 Urine Glucose (UA) 3+ (Negative) H 08/01/22 20:02 Urine Ketones Negative (Negative) 08/01/22 20:02 Urine Blood 2+ (Negative) H 08/01/22 20:02 Urine Nitrite Negative (Negative) 08/01/22 20:02 Urine Bilirubin Negative (Negative) 08/01/22 20:02 Urine Urobilinogen Negative (Negative) 08/01/22 20:02 Ur Leukocyte Esterase Negative (Negative) 08/01/22 20:02 Urine WBC (Auto) 1-5 /hpf (0-5) 07/24/22 13:35 Urine RBC (Auto) 0-4 /hpf (0-4) 07/24/22 13:35 U Hyaline Cast (Auto) 1-5 /lpf (0-5) 07/24/22 13:35 U Epithel Cells (Auto) 5-10 /lpf (0-5) H 07/24/22 13:35 Urine Bacteria (Auto) Negative (Negative) 07/24/22 13:35 Urine RBC >30 /hpf (0-4) H 08/01/22 20:02 Urine WBC 0-5 /hpf (0-5) 08/01/22 20:02 Ur Epithelial Cells 0-5 /lpf (0-5) 08/01/22 20:02 Calcium Oxalate Crystal Present (None Prsent) A 08/01/22 20:02 Urine Bacteria Negative (Negative) 08/01/22 20:02 Urine Yeast Budding w/ Hyphae (None Prsent) A 08/01/22 20:02 Nasal Screen MRSA (PCR) Negative (Negative) 07/24/22 16:30 Ethyl Alcohol mg/dL < 10.0 mg/dl (<10.0) 07/24/22 12:00 Adenovirus (PCR) Not Detected (NotDetected) 07/26/22 Unknown B. pertussis DNA (PCR) Not Detected (NotDetected) 07/26/22 Unknown B.parapertussis DNA PCR Not Detected (NotDetected) 07/26/22 Unknown C. pneumoniae DNA (PCR) Not Detected (NotDetected) 07/26/22 Unknown Coronavirus OC43 (PCR) Not Detected (NotDetected) 07/26/22 Unknown Coronavirus HKU1 (PCR) Not Detected (NotDetected) 07/26/22 Unknown Coronavirus 229E (PCR) Not Detected (NotDetected) 07/26/22 Unknown SARS-CoV-2 (PCR) Not Detected (NotDetected) 07/26/22 Unknown Coronavirus NL63 (PCR) Not Detected (NotDetected) 07/26/22 Unknown Human Metapneumovir PCR Not Detected (NotDetected) 07/26/22 Unknown Influenza Type A (PCR) Not Detected (NotDetected) 07/26/22 Unknown Influenza Type B (PCR) Not Detected (NotDetected) 07/26/22 Unknown Urine Legionella Ag SEE NOTE 07/26/22 Unknown M. pneumoniae (PCR) Not Detected (NotDetected) 07/26/22 Unknown Parainfluenza 1 (PCR) Not Detected (NotDetected) 07/26/22 Unknown Parainfluenza 2 (PCR) Not Detected (NotDetected) 07/26/22 Unknown Parainfluenza 3 (PCR) Not Detected (NotDetected) 07/26/22 Unknown Parainfluenza 4 (PCR) Not Detected (NotDetected) 07/26/22 Unknown RSV (RT-PCR) Negative (Neg) 07/24/22 11:50 RSV (PCR) Not Detected (NotDetected) 07/26/22 Unknown Entero/Rhino (PCR) Not Detected (NotDetected) 07/26/22 Unknown Blood Type O Positive 07/29/22 11:12 Blood Type Recheck O Positive 07/29/22 04:22 Antibody Screen NEGATIVE 07/29/22 11:12 Crossmatch See Detail 07/29/22 11:12 Impressions Chest X-Ray 07/31/22 00:45 XR chest 1V portable CLINICAL HISTORY: Shortness of breath. COMPARISON STUDY: Chest radiograph July 29, 2022. FINDINGS: Right axillary surgical clips are noted. Small bilateral pleural effusions with bibasilar opacities persist. There is no pneumothorax. There is persistent interstitial thickening. Cardiomediastinal silhouette is stable. Underlying emphysema. IMPRESSION: 1. Persistent pulmonary edema with small bilateral pleural effusions and associated bibasilar opacities which could reflect pneumonia or atelectasis. 2. Emphysema. 3. Cardiomegaly. ACT 112: Negative or not required by law. Electronically signed by: cO Huggins M.D. 07/31/2022 8:59 AM (1) Respiratory failure with hypoxia and hypercapnia Chronicity: acute on chronic Qualified Code(s): J96.21 - Acute and chronic respiratory failure with hypoxia; J96.22 - Acute and chronic respiratory failure with hypercapnia; J96.22 - Acute and chronic respiratory failure with hypercapnia
--- NOTE | 2022-08-02 13:38 | Cardiology Progress Note ---
Date of Service August 02, 2022 Assessment & Plan (1) Heart failure with reduced ejection fraction: (2) Ischemic cardiomyopathy: (3) Acute respiratory failure with hypoxia and hypercapnia: Plan -Nephrology input noted and appreciated. -Continue positive pressure ventilation for CO2 retention. -IV steroids have allyssaley helps him from a pulmonary standpoint, as wheezing / rhonchi improved over last 2 days. -In SR, continue Eliquis. -While De La Cruz in place, change furosemide to 10 mg IV BID, next dose 1400. -Perhaps low BP in part due to autonomic insufficiency of CHF, start midodrine for BP support to allow for other medications. Will try to add back Entresto over next 1-2 days. Admission and Anticipated Discharge Date Admission Date: July 24, 2022 Subjective Patient seen in cardiology follow up. He is comfortable today. Had a restful night. De La Cruz catheter in place draining pink urine. Telemetry reveals SR in the 70s. Physical Exam Constitutional: + cachectic; not ill appearing Respiratory: Auscultation: + rhonchi (improved); no rales Cardiovascular: RRR, no murmur, no edema Gastrointestinal (Abdomen): normal bowel sounds, soft, nontender, no hepatosplenomegaly Neurologic: PERRL, EOMI, accommodation nl, no face palsy, no dysarthria Genitourinary: De La Cruz catheter in place Results & Data ([facility]) Vital Signs (Past 12 Hours) Vital Signs Temp Pulse Resp BP Pulse Ox O2 Del Method O2 Flow Rate 08/02/22 08:00 Nasal Cannula, BiPAP 4 08/02/22 11:34 36.8 C 81 20 106/67 97 Nasal Cannula 3 08/02/22 08:10 36.9 C 85 20 110/59 L 91 Nasal Cannula 5 08/02/22 07:15 83 20 100 Nasal Cannula 5 08/02/22 03:55 36.6 C 79 25 H 107/62 99 Nasal Cannula 5 Laboratory Results CBC 08/02/22 Range/Units 06:45 WBC 7.13 (4.8-10.8) K/ul RBC 3.06 L (4.70-6.10) M/uL Hgb 9.1 L (14.0-18.0) g/dl Hct 29.2 L (42.0-52.0) % Plt Count 277 (130-400) K/uL Neut # (Auto) 6.06 (1.40-6.50) K/uL Lymph # (Auto) 0.61 L (1.2-3.4) K/uL [place] # (Auto) 0.43 (0.11-0.59) K/uL Eos # (Auto) 0.00 (0-0.50) K/uL Baso # (Auto) 0.00 (0-0.2) K/uL Comprehensive Metabolic Panel 08/02/22 Range/Units 06:45 Sodium 137 (136-145) mmol/L Potassium 4.8 (3.5-5.1) mmol/L Chloride 97 L (98-107) mmol/L Carbon Dioxide 37 H (21-32) mmol/L BUN 19 (6-23) mg/dl Creatinine 0.42 L (0.6-1.4) mg/dl Glucose 122 H (70-99(Fasting)) mg/dl Calcium 8.8 (8.5-10.1) mg/dl
[2022-08-02] MEDS ORDERED: FUROSEMIDE INJ 20 MG/2 ML VIAL IV ONE (14:00)
[2022-08-02] MEDS: MIDODRINE HCL 2.5 MG TAB PO SCH (18:03)
[2022-08-03] MEDS: ERTAPENEM SODIUM 1,000 MG in SYRINGE 0 ML IV SCH (04:19)
[2022-08-03 07:37] LABS: Basophils # (auto) 0.01 K/uL (0-0.2); Basophils % (auto) 0.1 %; Hematocrit (blood only) 29.8 % (42.0-52.0); Hemoglobin 9.3 g/dl (14.0-18.0); Immature Granulocytes # (auto) 0.05 K/uL (0.01-0.20); Immature Granulocytes % (auto) 0.5 %; Lymphocytes # (auto) 0.83 K/uL (1.2-3.4); Lymphocytes % (auto) 8.1 %; Mean Corpuscular Hemoglobin 29.6 pg (25.0-34.0); Mean Corpuscular Hgb Conc 31.2 g/dL (32.0-36.0); Mean Corpuscular Volume 94.9 fL (80.0-100.0); Monocytes # (auto) 0.79 K/uL (0.11-0.59); Monocytes % (auto) 7.7 %; Neutrophils # (auto) 8.53 K/uL (1.40-6.50); Neutrophils % (auto) 83.6 %; Platelet Count 286 K/uL (130-400); RDW Coefficient of Variation 15.4 % (11.5-14.5); RDW Standard Deviation 53.3 fL (36.4-46.3); Red Blood Count 3.14 M/uL (4.70-6.10); White Blood Count 10.21 K/ul (4.8-10.8)
[2022-08-03 07:58] LABS: BUN Creatinine Ratio 49.1 (10-20); Creatinine Clr Calc Pharmacy 90.9 ml/min; Est GFR (African American) 126.9 ml/min; Est GFR (Non-African American) 109.5 ml/min; Potassium 4.6 mmol/L (3.5-5.1)
[2022-08-03] MEDS: MIDODRINE HCL 2.5 MG TAB PO SCH ×3 (08:02→17:41)
[2022-08-03] MEDS: FLUTICASONE/VILANTEROL 100/25MCG 14 PUFFS/INHALER INH SCH (08:55)
[2022-08-03] MEDS: CLOPIDOGREL BISULFATE 75 MG TAB PO SCH (08:55)
[2022-08-03] MEDS: PANTOprazole 40 MG TAB PO SCH (08:56)
[2022-08-03] MEDS: APIXABAN 5 MG TABLET PO SCH ×2 (08:56→20:13)
[2022-08-03] MEDS: MAGNESIUM OXIDE 400 MG TAB PO SCH ×2 (08:56→20:12)
[2022-08-03] MEDS: THIAMINE HCL 100 MG TAB PO SCH (08:56)
[2022-08-03] MEDS: EMPAGLIFLOZIN 10 MG TAB PO SCH (08:56)
[2022-08-03] MEDS: ATORVASTATIN 40 MG TAB PO SCH (08:56)
[2022-08-03] MEDS: methylPREDNISolone 40 MG in SYRINGE 0 ML IV SCH ×2 (08:57→20:12)
[2022-08-03] MEDS: AMIODARONE 200 MG TAB PO SCH (08:57)
[2022-08-03] MEDS: FUROSEMIDE INJ 20 MG/2 ML VIAL IV SCH ×2 (09:03→17:41)
--- NOTE | 2022-08-03 11:32 | Hospitalist Progress Note ---
Date of Service August 03, 2022 Assessment & Plan (1) Respiratory failure with hypoxia and hypercapnia: Plan: Multifactorial; acute on chronic systolic heart failure, COPD exacerbation. History of HFrEF, COPD on inhalers X-ray done on 07/31 shows persistent pulmonary edema with small bilateral pleural effusion, emphysema On examination; decreased air entry with wheeze present. Pro-Patrick elevated Plan; Currently on IV 10 mg Lasix twice daily. We will continue same if continues to tolerate it. Repeat chest x-ray tomorrow AM. Low-dose midodrine added as per cardiology. BiPAP as needed as needed for increased work of breathing. Continue IV steroids; duo nebs as needed. Patient on ertapenem since 07/31. Complete 5-day course. Strict input and output, daily weights. (2) Acute on chronic heart failure with reduced ejection fraction and diastolic dysfunction: Plan: He is a history of cardiogenic shock/ NSTEMI in the last couple of months and ischemic cardiomyopathy. PAF anticoagulated on Eliquis. Had initially required dobutamine. Currently off it. Entresto on hold due to low blood pressure. (3) Metabolic alkalosis: Plan: resolved. He was given acetazolamide when he was admitted initially. (4) Hematuria: Plan: Patient has indwelling De La Cruz with dark red urine. On Eliquis for PAF Hemoglobin stable Urology on board; hematuria work-up to be done as outpatient. (5) CAD (coronary artery disease): Plan: 05/31/2022: NSTEMI, cardiogenic shock. S/p cardiac cath which showed severe multivessel CAD and was transferred to [facility]. Had multivessel PCI at [facility]. On atorvastatin, Plavix. No chest pain or active ACS at this time. Continue current medication. (6) Paroxysmal atrial fibrillation: Plan: Currently in sinus rhythm, continue amiodarone Eliquis as noted above. (7) COPD (chronic obstructive pulmonary disease): Plan: On examination, he has decreased air entry and occasional wheeze. Continue with as needed nebulization Continue home inhalers On IV steroid; will complete 5-day course. (8) Anemia: Plan: H/H has fallen since Jun 2022 (14.4/42 --> 8.5/27). Noticed to have hematuria. Urology consulted DVT Prophylaxis On Eliquis Disposition PCU; currently has significant respiratory distress. Continue current treatment. PT OT recommends rehab. Full Code Admission and Anticipated Discharge Date Admission Date: July 24, 2022 Subjective Patient seen and examined at bedside. He reports improvement in his shortness of breath. Reports that he has been able to get out of the bed and sit in the chair. Urine looks clear compared to yesterday. Review of Systems 2 Review of Systems: All systems reviewed & are unremarkable except as noted in Subjective Physical Exam Physical Exam: Constitutional: Alert orient x3; in significant respiratory distress. Head: Normocephalic, Atraumatic Respiratory: Decreased air entry bilaterally; slight improvement. Basilar crackles present. Cardiovascular: RRR, no murmur, no edema Vessels: no JVD or carotid bruit Chest: normal inspection of chest Abdomen: normal bowel sounds, soft, nontender, no hepatosplenomegaly. De La Cruz in place with red urine. Musculoskeletal: no cyanosis or clubbing, extremities motor strength 5/5 Skin: no rashes, warm and dry normal turgor Neurologic: PERRL, EOMI, accommodation nl, no face palsy, no dysarthria CN's II- XI intact bilaterally and moves all extremities Psychiatric: A+Ox3, euthymic affect Lymphatic: no cervical or axillary lymphadenopathy : deferred Results & Data Results & Data ([facility]) Vital Signs (Past 12 Hours) Vital Signs Temp Pulse Resp BP Pulse Ox O2 Del Method O2 Flow Rate 08/03/22 10:46 36.6 C 82 18 102/58 L 90 Nasal Cannula 2 08/03/22 08:19 36.7 C 80 18 101/68 92 Nasal Cannula 2 08/03/22 04:20 36.5 C 74 16 104/62 97 Nasal Cannula 3 08/02/22 23:32 36.5 C 73 20 96/58 L 100 BiPAP Laboratory Results Laboratory Results WBC 10.21 K/ul (4.8-10.8) 08/03/22 06:47 RBC 3.14 M/uL (4.70-6.10) L 08/03/22 06:47 Hgb 9.3 g/dl (14.0-18.0) L 08/03/22 06:47 POC Hgb 11.6 g/dl (14.0-18.0) L 07/24/22 12:03 Hct 29.8 % (42.0-52.0) L 08/03/22 06:47 POC Hct 34 % (42-52) L 07/24/22 12:03 MCV 94.9 fL (80.0-100.0) 08/03/22 06:47 MCH 29.6 pg (25.0-34.0) 08/03/22 06:47 MCHC 31.2 g/dL (32.0-36.0) L 08/03/22 06:47 RDW Std Deviation 53.3 fL (36.4-46.3) H 08/03/22 06:47 RDW Coeff of Gordon 15.4 % (11.5-14.5) H 08/03/22 06:47 Plt Count 286 K/uL (130-400) 08/03/22 06:47 MPV 10.0 fL (9.4-12.4) 08/03/22 06:47 Immature Gran % (Auto) 0.5 % 08/03/22 06:47 Neut % (Auto) 83.6 % 08/03/22 06:47 Lymph % (Auto) 8.1 % 08/03/22 06:47 [place] % (Auto) 7.7 % 08/03/22 06:47 Eos % (Auto) 0.0 % 08/03/22 06:47 Baso % (Auto) 0.1 % 08/03/22 06:47 Neut # (Auto) 8.53 K/uL (1.40-6.50) H 08/03/22 06:47 Lymph # (Auto) 0.83 K/uL (1.2-3.4) L 08/03/22 06:47 [place] # (Auto) 0.79 K/uL (0.11-0.59) H 08/03/22 06:47 Eos # (Auto) 0.00 K/uL (0-0.50) 08/03/22 06:47 Baso # (Auto) 0.01 K/uL (0-0.2) 08/03/22 06:47 Immature Gran # (Auto) 0.05 K/uL (0.01-0.20) 08/03/22 06:47 Peripher Smr Path Cons 07/28/22 03:55 PT 11.8 Seconds (9.0-12.0) 07/26/22 18:30 INR 1.1 (0.9-1.1) 07/26/22 18:30 APTT 57.2 Seconds (21.0-31.0) H* 07/27/22 04:48 PTT Ratio 2.1 07/27/22 04:48 Sample Site R Radial 07/27/22 10:08 POC pH 7.48 (7.35-7.45) H 07/27/22 10:08 POC pCO2 50 mmHg (35-46) H 07/27/22 10:08 POC pO2 49 mmHg (80-95) L 07/27/22 10:08 POC HCO3 37 cristian/L (19-24) H 07/27/22 10:08 POC Total CO2 39 mmol/L (24-31) H 07/27/22 10:08 POC Base Excess 14.0 cristian/L (-9-1.8) H 07/27/22 10:08 ABG pH 7.30 (7.35-7.45) L 07/31/22 02:43 ABG pCO2 66 mmHg (35-46) H 07/31/22 02:43 ABG pO2 59 mmHg (80-95) L 07/31/22 02:43 ABG HCO3 33 mmol/L (19-24) H 07/31/22 02:43 POC ABG O2 Sat 86.0 % (90-95) L 07/27/22 10:08 ABG O2 Saturation 88.3 % (90-95) L 07/31/22 02:43 ABG Base Excess 4.0 mEq/L (-9-1.8) H 07/31/22 02:43 Horace Test Pos (Pos) 07/31/22 02:43 VBG pH 7.36 (7.36-7.41) 07/26/22 09:28 VBG pCO2 83 mmHg (38-50) H 07/24/22 12:07 VBG pO2 40 mmHg 07/24/22 12:07 VBG HCO3 35 mmol/L 07/24/22 12:07 VBG O2 Saturation < 60.0 % 07/24/22 12:07 VBG Base Excess 4.4 mEq/L 07/24/22 12:07 Oxygen Given 60% FI02 07/31/22 02:43 O2 Delivery Device Cannula 07/27/22 10:08 POC Sodium 133 mmol/L (135-144) L 07/24/22 12:03 Sodium 137 mmol/L (136-145) 08/03/22 06:47 POC Potassium 4.2 mmol/L (3.3-5.0) 07/24/22 12:03 Potassium 4.6 mmol/L (3.5-5.1) 08/03/22 06:47 POC Chloride 91 mmol/L (101-112) L 07/24/22 12:03 Chloride 96 mmol/L (98-107) L 08/03/22 06:47 Carbon Dioxide 38 mmol/L (21-32) H 08/03/22 06:47 POC Total CO2 36 mmol/L (24-31) H 07/24/22 12:03 Anion Gap 3 (3-11) 08/03/22 06:47 POC Anion Gap 11.0 mmol/L (16-25) L 07/24/22 12:03 POC BUN 18 mg/dl (7-18) 07/24/22 12:03 BUN 26 mg/dl (6-23) H 08/03/22 06:47 Creatinine 0.53 mg/dl (0.6-1.4) L 08/03/22 06:47 POC Creatinine 0.5 mg/dl (0.6-1.3) L 07/24/22 12:03 Est Cr Clr Drug Dosing 90.9 ml/min 08/03/22 06:47 Est GFR ( Amer) 126.9 ml/min 08/03/22 06:47 Est GFR (Non-Af Amer) 109.5 ml/min 08/03/22 06:47 BUN/Creatinine Ratio 49.1 (10-20) H 08/03/22 06:47 Glucose 104 mg/dl (70-99(Fasting)) H 08/03/22 06:47 POC Glucose 121 mg/dl (70-99) H 07/31/22 16:08 POC Glucose (other) 140 mg/dl (70-99) H 07/24/22 12:03 Lactate 0.9 mmol/L (0.4-2.0) 07/26/22 17:15 Calcium 9.0 mg/dl (8.5-10.1) 08/03/22 06:47 POC Ioniz Calcium Amee 1.10 mmol/l (1.12-1.32) L 07/24/22 12:03 Phosphorus 2.3 mg/dl (2.5-4.9) L 07/30/22 05:45 Magnesium 1.7 mg/dl (1.7-2.4) 07/30/22 05:45 Iron 38 mcg/dl (35-175) 07/29/22 04:23 Unsaturated IBC 180 mcg/dl (155-355) 07/29/22 04:23 Ferritin 825.9 ng/ml (8-388) H 07/29/22 04:23 Total Bilirubin 0.7 mg/dl (0.2-1.0) D 07/26/22 04:35 Direct Bilirubin 0.4 mg/dl (0-0.2) H 07/24/22 11:50 AST 21 U/L (13-39) 07/26/22 04:35 ALT 28 U/L (7-52) 07/26/22 04:35 Alkaline Phosphatase 71 U/L (34-104) 07/26/22 04:35 Troponin I High Sens 29.5 pg/ml (0-20) H D 07/24/22 22:51 B-Natriuretic Peptide 2135 pg/ml (0-100) H 07/29/22 04:23 Total Protein 5.6 gm/dl (6.0-8.3) L 07/26/22 04:35 Albumin 3.4 gm/dl (3.4-5.0) 07/26/22 04:35 Globulin 2.2 gm/dl (2.5-4.0) L 07/26/22 04:35 Albumin/Globulin Ratio 1.5 (0.9-2) 07/26/22 04:35 Vitamin B12 308 pg/ml (180-914) 07/29/22 04:23 Folate 9.18 ng/ml (>5.38) 07/29/22 04:23 Procalcitonin 0.71 ng/ml (0-0.5) H 08/01/22 08:34 Urine Color Red 08/01/22 20:02 Urine Appearance Cloudy (Clear) A 08/01/22 20:02 Urine pH 7.0 (4.5-7.5) 08/01/22 20:02 Ur Specific [place] 1.020 (1.000-1.030) 08/01/22 20:02 Urine Protein 1+ (Negative) H 08/01/22 20:02 Urine Glucose (UA) 3+ (Negative) H 08/01/22 20:02 Urine Ketones Negative (Negative) 08/01/22 20:02 Urine Blood 2+ (Negative) H 08/01/22 20:02 Urine Nitrite Negative (Negative) 08/01/22 20:02 Urine Bilirubin Negative (Negative) 08/01/22 20:02 Urine Urobilinogen Negative (Negative) 08/01/22 20:02 Ur Leukocyte Esterase Negative (Negative) 08/01/22 20:02 Urine WBC (Auto) 1-5 /hpf (0-5) 07/24/22 13:35 Urine RBC (Auto) 0-4 /hpf (0-4) 07/24/22 13:35 U Hyaline Cast (Auto) 1-5 /lpf (0-5) 07/24/22 13:35 U Epithel Cells (Auto) 5-10 /lpf (0-5) H 07/24/22 13:35 Urine Bacteria (Auto) Negative (Negative) 07/24/22 13:35 Urine RBC >30 /hpf (0-4) H 08/01/22 20:02 Urine WBC 0-5 /hpf (0-5) 08/01/22 20:02 Ur Epithelial Cells 0-5 /lpf (0-5) 08/01/22 20:02 Calcium Oxalate Crystal Present (None Prsent) A 08/01/22 20:02 Urine Bacteria Negative (Negative) 08/01/22 20:02 Urine Yeast Budding w/ Hyphae (None Prsent) A 08/01/22 20:02 Nasal Screen MRSA (PCR) Negative (Negative) 07/24/22 16:30 Ethyl Alcohol mg/dL < 10.0 mg/dl (<10.0) 07/24/22 12:00 Adenovirus (PCR) Not Detected (NotDetected) 07/26/22 Unknown B. pertussis DNA (PCR) Not Detected (NotDetected) 07/26/22 Unknown B.parapertussis DNA PCR Not Detected (NotDetected) 07/26/22 Unknown C. pneumoniae DNA (PCR) Not Detected (NotDetected) 07/26/22 Unknown Coronavirus OC43 (PCR) Not Detected (NotDetected) 07/26/22 Unknown Coronavirus HKU1 (PCR) Not Detected (NotDetected) 07/26/22 Unknown Coronavirus 229E (PCR) Not Detected (NotDetected) 07/26/22 Unknown SARS-CoV-2 (PCR) Not Detected (NotDetected) 07/26/22 Unknown Coronavirus NL63 (PCR) Not Detected (NotDetected) 07/26/22 Unknown Human Metapneumovir PCR Not Detected (NotDetected) 07/26/22 Unknown Influenza Type A (PCR) Not Detected (NotDetected) 07/26/22 Unknown Influenza Type B (PCR) Not Detected (NotDetected) 07/26/22 Unknown Urine Legionella Ag SEE NOTE 07/26/22 Unknown M. pneumoniae (PCR) Not Detected (NotDetected) 07/26/22 Unknown Parainfluenza 1 (PCR) Not Detected (NotDetected) 07/26/22 Unknown Parainfluenza 2 (PCR) Not Detected (NotDetected) 07/26/22 Unknown Parainfluenza 3 (PCR) Not Detected (NotDetected) 07/26/22 Unknown Parainfluenza 4 (PCR) Not Detected (NotDetected) 07/26/22 Unknown RSV (RT-PCR) Negative (Neg) 07/24/22 11:50 RSV (PCR) Not Detected (NotDetected) 07/26/22 Unknown Entero/Rhino (PCR) Not Detected (NotDetected) 07/26/22 Unknown Blood Type O Positive 07/29/22 11:12 Blood Type Recheck O Positive 07/29/22 04:22 Antibody Screen NEGATIVE 07/29/22 11:12 Crossmatch See Detail 07/29/22 11:12 Impressions Chest X-Ray 07/31/22 00:45 XR chest 1V portable CLINICAL HISTORY: Shortness of breath. COMPARISON STUDY: Chest radiograph July 29, 2022. FINDINGS: Right axillary surgical clips are noted. Small bilateral pleural effusions with bibasilar opacities persist. There is no pneumothorax. There is persistent interstitial thickening. Cardiomediastinal silhouette is stable. Underlying emphysema. IMPRESSION: 1. Persistent pulmonary edema with small bilateral pleural effusions and associated bibasilar opacities which could reflect pneumonia or atelectasis. 2. Emphysema. 3. Cardiomegaly. ACT 112: Negative or not required by law. Electronically signed by: Oc Huggisn M.D. 07/31/2022 8:59 AM (1) Respiratory failure with hypoxia and hypercapnia Chronicity: acute on chronic Qualified Code(s): J96.21 - Acute and chronic respiratory failure with hypoxia; J96.22 - Acute and chronic respiratory failure with hypercapnia; J96.22 - Acute and chronic respiratory failure with hyp ercapnia
--- NOTE | 2022-08-03 12:25 | Nephrology Progress Note ---
Date of Service August 03, 2022 Assessment & Plan (1) Metabolic alkalosis: Plan: compensating for respiratory acidosis, the latter which we will likely never correct only manage. K acceptable given his baseline in low to mid 30s (new this month) for bicarb, would be somewhat permissive about higher upper limit of bicarb in diuresing > to 40 or 41 if needed -cont lasix 10 mg bid17 IV -dose diamoxx when needed > if bicarb > 40 -daily bmp while in house -continue positive pressure ventilation to control/improve chronic respiratory acidosis > recommend at least 6 hrs daily ideally to give us room for lasix dosing but defer to primary team >started entresto today do will monitor renal function as med onboards Admission and Anticipated Discharge Date Admission Date: July 24, 2022 Subjective started on midodrine by cards in effort to improve BP/ get window for entresto. feels well. walkin gin room and wants to go further. ate full meal. no voiding concerns Review of Systems Review of Systems: All systems reviewed & are unremarkable except as noted in Subjective Physical Exam Constitutional: well developed, + cachectic, + frail appearing and cooperative up in chair on 02NC Eyes: EOM intact bilaterally ENMT: Ears: no external ear abnormality Nose: no external nose abnormality Neck: no nuchal rigidity Respiratory: normal respiratory effort and able to speak in complete sentences (but labored in doing so though less today) Auscultation: + diminished lung sounds and + crackles (bibasilar) Cardiovascular: Rate/Rhythm: regular rate and regular rhythm Extremities: n o edema Gastrointestinal (Abdomen): Inspection/Auscultation: normal bowel sounds Percussion/Palpation: abdomen soft; abdomen nontender Musculoskeletal: Extremities: strength 5/5 throughout Skin: no rashes, warm and dry Neurologic: morales, fluent speech, no tremor Psychiatric: Orientation: oriented x 3 Results & Data ([facility]) Vital Signs (Past 12 Hours) Vital Signs Temp Pulse Resp BP Pulse Ox O2 Del Method O2 Flow Rate 08/03/22 10:46 36.6 C 82 18 102/58 L 90 Nasal Cannula 2 08/03/22 08:19 36.7 C 80 18 101/68 92 Nasal Cannula 2 08/03/22 04:20 36.5 C 74 16 104/62 97 Nasal Cannula 3 Laboratory Results 08/03/22 06:47 08/03/22 06:47
--- NOTE | 2022-08-03 18:19 | Cardiology Progress Note ---
Date of Service August 03, 2022 Assessment & Plan (1) Heart failure with reduced ejection fraction: (2) Ischemic cardiomyopathy: (3) Acute respiratory failure with hypoxia and hypercapnia: Plan -Change diuretic from furosemide 10 mg IV twice daily back to frusemide 20 mg p.o. daily. -Continue Eliquis for stroke prophylaxis given history of paroxysmal atrial fibrillation -Continue clopidogrel given recent complex PCI -Continue midodrine for blood pressure support. -If blood pressure stable tomorrow, will consider adding back Entresto. Admission and Anticipated Discharge Date Admission Date: July 24, 2022 Subjective Patient seen in hospital follow-up. Sitting in the bedside chair. For positive pressure ventilation for 5 hours last night. De La Cruz catheter removed. Respiratory status appears stable. Telemetry reveals sinus rhythm in the 80s. His daughter and granddaughter are visiting him. Physical Exam Constitutional: + cachectic; not ill appearing Respiratory: no respiratory distress and no labored breathing Auscultation: + diminished lung sounds, + rhonchi (improved) and + wheezes; no rales Cardiovascular: RRR, no murmur, no edema Rate/Rhythm: regular rate and regular rhythm Vessels: + JVD Extremities: no edema Gastrointestinal (Abdomen): normal bowel sounds, soft, nontender, no hepatosplenomegaly Musculoskeletal: Extremities: + muscle atrophy Neurologic: PERRL, EOMI, accommodation nl, no face palsy, no dysarthria Results & Data ([facility]) Vital Signs (Past 12 Hours) Vital Signs Temp Pulse Resp BP Pulse Ox O2 Del Method O2 Flow Rate 08/03/22 08:00 Nasal Cannula 2 08/03/22 15:49 36.8 C 76 24 110/73 90 Nasal Cannula 2 08/03/22 10:46 36.6 C 82 18 102/58 L 90 Nasal Cannula 2 08/03/22 08:19 36.7 C 80 18 101/68 92 Nasal Cannula 2 Laboratory Results CBC 08/03/22 Range/Units 06:47 WBC 10.21 (4.8-10.8) K/ul RBC 3.14 L (4.70-6.10) M/uL Hgb 9.3 L (14.0-18.0) g/dl Hct 29.8 L (42.0-52.0) % Plt Count 286 (130-400) K/uL Neut # (Auto) 8.53 H (1.40-6.50) K/uL Lymph # (Auto) 0.83 L (1.2-3.4) K/uL [place] # (Auto) 0.79 H (0.11-0.59) K/uL Eos # (Auto) 0.00 (0-0.50) K/uL Baso # (Auto) 0.01 (0-0.2) K/uL Comprehensive Metabolic Panel 08/03/22 Range/Units 06:47 Sodium 137 (136-145) mmol/L Potassium 4.6 (3.5-5.1) mmol/L Chloride 96 L (98-107) mmol/L Carbon Dioxide 38 H (21-32) mmol/L BUN 26 H (6-23) mg/dl Creatinine 0.53 L (0.6-1.4) mg/dl Glucose 104 H (70-99(Fasting)) mg/dl Calcium 9.0 (8.5-10.1) mg/dl Intake and Output 08/03/22 08/03/22 08/03/22 06:59 14:59 22:59 Output Total 200 / 1050 500 / 500 Balance -200 / -750 -500 / -500 Output: Urine 200 / 700 500 / 500 Other: Weight 47.5 kg Weight Measurement Method Built in [facility]
[2022-08-04] MEDS: ERTAPENEM SODIUM 1,000 MG in SYRINGE 0 ML IV SCH (01:53)
[2022-08-04 07:49] LABS: Basophils # (auto) 0.01 K/uL (0-0.2); Basophils % (auto) 0.1 %; Hemoglobin 9.4 g/dl (14.0-18.0); Immature Granulocytes # (auto) 0.07 K/uL (0.01-0.20); Immature Granulocytes % (auto) 0.8 %; Lymphocytes # (auto) 0.57 K/uL (1.2-3.4); Lymphocytes % (auto) 6.2 %; Mean Corpuscular Hemoglobin 29.7 pg (25.0-34.0); Mean Corpuscular Hgb Conc 31.3 g/dL (32.0-36.0); Mean Corpuscular Volume 94.9 fL (80.0-100.0); Mean Platelet Volume 10.2 fL (9.4-12.4); Monocytes # (auto) 0.49 K/uL (0.11-0.59); Monocytes % (auto) 5.3 %; Neutrophils # (auto) 8.11 K/uL (1.40-6.50); Neutrophils % (auto) 87.6 %; Platelet Count 268 K/uL (130-400); RDW Coefficient of Variation 15.2 % (11.5-14.5); RDW Standard Deviation 52.6 fL (36.4-46.3); Red Blood Count 3.16 M/uL (4.70-6.10); White Blood Count 9.25 K/ul (4.8-10.8)
[2022-08-04] MEDS: MIDODRINE HCL 2.5 MG TAB PO SCH ×3 (08:41→17:20)
[2022-08-04] MEDS: ATORVASTATIN 40 MG TAB PO SCH (08:41)
[2022-08-04] MEDS: APIXABAN 5 MG TABLET PO SCH ×2 (08:43→22:48)
[2022-08-04] MEDS: AMIODARONE 200 MG TAB PO SCH (08:43)
[2022-08-04] MEDS: EMPAGLIFLOZIN 10 MG TAB PO SCH (08:44)
[2022-08-04] MEDS: CLOPIDOGREL BISULFATE 75 MG TAB PO SCH (08:44)
[2022-08-04] MEDS: FLUTICASONE/VILANTEROL 100/25MCG 14 PUFFS/INHALER INH SCH (08:44)
[2022-08-04] MEDS: MAGNESIUM OXIDE 400 MG TAB PO SCH ×2 (08:45→22:48)
[2022-08-04] MEDS: PANTOprazole 40 MG TAB PO SCH (08:46)
[2022-08-04] MEDS: THIAMINE HCL 100 MG TAB PO SCH (08:46)
[2022-08-04] MEDS: methylPREDNISolone 40 MG in SYRINGE 0 ML IV SCH (08:46)
[2022-08-04 08:55] LABS: BUN Creatinine Ratio 57.4 (10-20); Creatinine Clr Calc Pharmacy 102.5 ml/min; Est GFR (African American) 133.3 ml/min
[2022-08-04] MEDS ORDERED: FUROSEMIDE 20 MG TAB PO SCH (09:00)
--- NOTE | 2022-08-04 11:06 | Hospitalist Progress Note ---
Date of Service August 04, 2022 Assessment & Plan (1) Respiratory failure with hypoxia and hypercapnia: Plan: Multifactorial; acute on chronic systolic heart failure, COPD exacerbation. History of HFrEF, COPD on inhalers X-ray done on 07/31 shows persistent pulmonary edema with small bilateral pleural effusion, emphysema Repeat chest x-ray done on 08/04 continues to show pulmonary edema. On examination; decreased air entry with wheeze present. Pro-Patrick elevated Plan; Switched over to oral Lasix 20 mg as per cardiology. Low-dose midodrine added as per cardiology. If blood pressure improves; might be placed on Entresto as per cardiology. BiPAP as needed as needed for increased work of breathing. IV steroids changed to oral; will start tapering it off. 40 mg for 2 more days. Patient on ertapenem since 07/31. Complete 5-day course. Strict input and output, daily weights. (2) Acute on chronic heart failure with reduced ejection fraction and diastolic dysfunction: Plan: He is a history of cardiogenic shock/ NSTEMI in the last couple of months and ischemic cardiomyopathy. PAF anticoagulated on Eliquis. Had initially required dobutamine. Currently off it. Entresto on hold due to low blood pressure. (3) Metabolic alkalosis: Plan: resolved. He was given acetazolamide when he was admitted initially. (4) Hematuria: Plan: Patient had indwelling De La Cruz with dark red urine. On Eliquis for PAF Hemoglobin stable Urology on board; hematuria work-up to be done as outpatient. Successful trial of void done on 08/01; urine currently clear. (5) CAD (coronary artery disease): Plan: 05/31/2022: NSTEMI, cardiogenic shock. S/p cardiac cath which showed severe multivessel CAD and was transferred to [facility]. Had multivessel PCI at [facility]. On atorvastatin, Plavix. No chest pain or active ACS at this time. Continue current medication. (6) Paroxysmal atrial fibrillation: Plan: Currently in sinus rhythm, continue amiodarone Eliquis as noted above. (7) COPD (chronic obstructive pulmonary disease): Plan: On examination, he has decreased air entry and occasional wheeze. Continue with as needed nebulization Continue home inhalers IV steroids changed to oral. (8) Anemia: Plan: H/H has fallen since Jun 2022 (14.4/42 --> 8.5/). Noticed to have hematuria. Urology consulted; hematuria work-up as outpatient. DVT Prophylaxis On Eliquis Disposition PCU; currently has significant respiratory distress. Continue current treatment. PT OT recommends rehab. Full Code Admission and Anticipated Discharge Date Admission Date: July 24, 2022 Subjective Patient seen and examined at bedside. Is comfortably sitting up on the bed; not in any distress. Reports that his shortness of breath is improving. He is voiding well without any difficulty; urine is clear. Was on BiPAP overnight for 6 hours. Review of Systems Review of Systems: All systems reviewed & are unremarkable except as noted in Subjective Physical Exam Physical Exam: Constitutional: Alert orient x3; in significant respiratory distress. Head: Normocephalic, Atraumatic Respiratory: Decreased air entry bilaterally; slight improvement. Basilar crackles present. Cardiovascular: RRR, no murmur, no edema Vessels: no JVD or carotid bruit Chest: normal inspection of chest Abdomen: normal bowel sounds, soft, nontender, no hepatosplenomegaly. De La Cruz in place with red urine. Musculoskeletal: no cyanosis or clubbing, extremities motor strength 5/5 Skin: no rashes, warm and dry normal turgor Neurologic: PERRL, EOMI, accommodation nl, no face palsy, no dysarthria CN's II- XI intact bilaterally and moves all extremities Psychiatric: A+Ox3, euthymic affect Lymphatic: no cervical or axillary lymphadenopathy : deferred Results & Data Results & Data ([facility]) Vital Signs (Past 12 Hours) Vital Signs Temp Pulse Pulse Resp BP Pulse Ox O2 Del Method 08/04/22 10:32 83 08/04/22 07:35 36.9 C 80 22 118/62 94 Nasal Cannula 08/04/22 03:40 25 H 96 08/04/22 03:12 36.6 C 73 18 100/57 L 96 BiPAP 08/04/22 00:09 75 28 H 94 08/03/22 23:50 75 O2 Flow Rate FiO2 08/04/22 10:32 08/04/22 07:35 3.5 08/04/22 03:40 35 08/04/22 03:12 08/04/22 00:09 35 08/03/22 23:50 Laboratory Results Laboratory Results WBC 9.25 K/ul (4.8-10.8) 08/04/22 06:48 RBC 3.16 M/uL (4.70-6.10) L 08/04/22 06:48 Hgb 9.4 g/dl (14.0-18.0) L 08/04/22 06:48 POC Hgb 11.6 g/dl (14.0-18.0) L 07/24/22 12:03 Hct 30.0 % (42.0-52.0) L 08/04/22 06:48 POC Hct 34 % (42-52) L 07/24/22 12:03 MCV 94.9 fL (80.0-100.0) 08/04/22 06:48 MCH 29.7 pg (25.0-34.0) 08/04/22 06:48 MCHC 31.3 g/dL (32.0-36.0) L 08/04/22 06:48 RDW Std Deviation 52.6 fL (36.4-46.3) H 08/04/22 06:48 RDW Coeff of Gordon 15.2 % (11.5-14.5) H 08/04/22 06:48 Plt Count 268 K/uL (130-400) 08/04/22 06:48 MPV 10.2 fL (9.4-12.4) 08/04/22 06:48 Immature Gran % (Auto) 0.8 % 08/04/22 06:48 Neut % (Auto) 87.6 % 08/04/22 06:48 Lymph % (Auto) 6.2 % 08/04/22 06:48 [place] % (Auto) 5.3 % 08/04/22 06:48 Eos % (Auto) 0.0 % 08/04/22 06:48 Baso % (Auto) 0.1 % 08/04/22 06:48 Neut # (Auto) 8.11 K/uL (1.40-6.50) H 08/04/22 06:48 Lymph # (Auto) 0.57 K/uL (1.2-3.4) L 08/04/22 06:48 [place] # (Auto) 0.49 K/uL (0.11-0.59) 08/04/22 06:48 Eos # (Auto) 0.00 K/uL (0-0.50) 08/04/22 06:48 Baso # (Auto) 0.01 K/uL (0-0.2) 08/04/22 06:48 Immature Gran # (Auto) 0.07 K/uL (0.01-0.20) 08/04/22 06:48 Peripher Smr Path Cons 07/28/22 03:55 PT 11.8 Seconds (9.0-12.0) 07/26/22 18:30 INR 1.1 (0.9-1.1) 07/26/22 18:30 APTT 57.2 Seconds (21.0-31.0) H* 07/27/22 04:48 PTT Ratio 2.1 07/27/22 04:48 Sample Site R Radial 07/27/22 10:08 POC pH 7.48 (7.35-7.45) H 07/27/22 10:08 POC pCO2 50 mmHg (35-46) H 07/27/22 10:08 POC pO2 49 mmHg (80-95) L 07/27/22 10:08 POC HCO3 37 cristian/L (19-24) H 07/27/22 10:08 POC Total CO2 39 mmol/L (24-31) H 07/27/22 10:08 POC Base Excess 14.0 cristian/L (-9-1.8) H 07/27/22 10:08 ABG pH 7.30 (7.35-7.45) L 07/31/22 02:43 ABG pCO2 66 mmHg (35-46) H 07/31/22 02:43 ABG pO2 59 mmHg (80-95) L 07/31/22 02:43 ABG HCO3 33 mmol/L (19-24) H 07/31/22 02:43 POC ABG O2 Sat 86.0 % (90-95) L 07/27/22 10:08 ABG O2 Saturation 88.3 % (90-95) L 07/31/22 02:43 ABG Base Excess 4.0 mEq/L (-9-1.8) H 07/31/22 02:43 Horace Test Pos (Pos) 07/31/22 02:43 VBG pH 7.36 (7.36-7.41) 07/26/22 09:28 VBG pCO2 83 mmHg (38-50) H 07/24/22 12:07 VBG pO2 40 mmHg 07/24/22 12:07 VBG HCO3 35 mmol/L 07/24/22 12:07 VBG O2 Saturation < 60.0 % 07/24/22 12:07 VBG Base Excess 4.4 mEq/L 07/24/22 12:07 Oxygen Given 60% FI02 07/31/22 02:43 O2 Delivery Device Cannula 07/27/22 10:08 POC Sodium 133 mmol/L (135-144) L 07/24/22 12:03 Sodium 138 mmol/L (136-145) 08/04/22 06:48 POC Potassium 4.2 mmol/L (3.3-5.0) 07/24/22 12:03 Potassium 4.0 mmol/L (3.5-5.1) 08/04/22 06:48 POC Chloride 91 mmol/L (101-112) L 07/24/22 12:03 Chloride 95 mmol/L (98-107) L 08/04/22 06:48 Carbon Dioxide 39 mmol/L (21-32) H 08/04/22 06:48 POC Total CO2 36 mmol/L (24-31) H 07/24/22 12:03 Anion Gap 4 (3-11) 08/04/22 06:48 POC Anion Gap 11.0 mmol/L (16-25) L 07/24/22 12:03 POC BUN 18 mg/dl (7-18) 07/24/22 12:03 BUN 27 mg/dl (6-23) H 08/04/22 06:48 Creatinine 0.47 mg/dl (0.6-1.4) L 08/04/22 06:48 POC Creatinine 0.5 mg/dl (0.6-1.3) L 07/24/22 12:03 Est Cr Clr Drug Dosing 102.5 ml/min 08/04/22 06:48 Est GFR ( Amer) 133.3 ml/min 08/04/22 06:48 Est GFR (Non-Af Amer) 115.0 ml/min 08/04/22 06:48 BUN/Creatinine Ratio 57.4 (10-20) H 08/04/22 06:48 Glucose 110 mg/dl (70-99(Fasting)) H 08/04/22 06:48 POC Glucose 121 mg/dl (70-99) H 07/31/22 16:08 POC Glucose (other) 140 mg/dl (70-99) H 07/24/22 12:03 Lactate 0.9 mmol/L (0.4-2.0) 07/26/22 17:15 Calcium 9.0 mg/dl (8.5-10.1) 08/04/22 06:48 POC Ioniz Calcium Amee 1.10 mmol/l (1.12-1.32) L 07/24/22 12:03 Phosphorus 2.3 mg/dl (2.5-4.9) L 07/30/22 05:45 Magnesium 1.7 mg/dl (1.7-2.4) 07/30/22 05:45 Iron 38 mcg/dl (35-175) 07/29/22 04:23 Unsaturated IBC 180 mcg/dl (155-355) 07/29/22 04:23 Ferritin 825.9 ng/ml (8-388) H 07/29/22 04:23 Total Bilirubin 0.7 mg/dl (0.2-1.0) D 07/26/22 04:35 Direct Bilirubin 0.4 mg/dl (0-0.2) H 07/24/22 11:50 AST 21 U/L (13-39) 07/26/22 04:35 ALT 28 U/L (7-52) 07/26/22 04:35 Alkaline Phosphatase 71 U/L (34-104) 07/26/22 04:35 Troponin I High Sens 29.5 pg/ml (0-20) H D 07/24/22 22:51 B-Natriuretic Peptide 2135 pg/ml (0-100) H 07/29/22 04:23 Total Protein 5.6 gm/dl (6.0-8.3) L 07/26/22 04:35 Albumin 3.4 gm/dl (3.4-5.0) 07/26/22 04:35 Globulin 2.2 gm/dl (2.5-4.0) L 07/26/22 04:35 Albumin/Globulin Ratio 1.5 (0.9-2) 07/26/22 04:35 Vitamin B12 308 pg/ml (180-914) 07/29/22 04:23 Folate 9.18 ng/ml (>5.38) 07/29/22 04:23 Procalcitonin 0.71 ng/ml (0-0.5) H 08/01/22 08:34 Urine Color Red 08/01/22 20:02 Urine Appearance Cloudy (Clear) A 08/01/22 20:02 Urine pH 7.0 (4.5-7.5) 08/01/22 20:02 Ur Specific [place] 1.020 (1.000-1.030) 08/01/22 20:02 Urine Protein 1+ (Negative) H 08/01/22 20:02 Urine Glucose (UA) 3+ (Negative) H 08/01/22 20:02 Urine Ketones Negative (Negative) 08/01/22 20: Urine Blood 2+ (Negative) H 08/01/22 20:02 Urine Nitrite Negative (Negative) 08/01/22 20:02 Urine Bilirubin Negative (Negative) 08/01/22 20:02 Urine Urobilinogen Negative (Negative) 08/01/22 20:02 Ur Leukocyte Esterase Negative (Negative) 08/01/22 20:02 Urine WBC (Auto) 1-5 /hpf (0-5) 07/24/22 13:35 Urine RBC (Auto) 0-4 /hpf (0-4) 07/24/22 13:35 U Hyaline Cast (Auto) 1-5 /lpf (0-5) 07/24/22 13:35 U Epithel Cells (Auto) 5-10 /lpf (0-5) H 07/24/22 13:35 Urine Bacteria (Auto) Negative (Negative) 07/24/22 13:35 Urine RBC >30 /hpf (0-4) H 08/01/22 20:02 Urine WBC 0-5 /hpf (0-5) 08/01/22 20:02 Ur Epithelial Cells 0-5 /lpf (0-5) 08/01/22 20:02 Calcium Oxalate Crystal Present (None Prsent) A 08/01/22 20:02 Urine Bacteria Negative (Negative) 08/01/22 20:02 Urine Yeast Budding w/ Hyphae (None Prsent) A 08/01/22 20:02 Nasal Screen MRSA (PCR) Negative (Negative) 07/24/22 16:30 Ethyl Alcohol mg/dL < 10.0 mg/dl (<10.0) 07/24/22 12:00 Adenovirus (PCR) Not Detected (NotDetected) 07/26/22 Unknown B. pertussis DNA (PCR) Not Detected (NotDetected) 07/26/22 Unknown B.parapertussis DNA PCR Not Detected (NotDetected) 07/26/22 Unknown C. pneumoniae DNA (PCR) Not Detected (NotDetected) 07/26/22 Unknown Coronavirus OC43 (PCR) Not Detected (NotDetected) 07/26/22 Unknown Coronavirus HKU1 (PCR) Not Detected (NotDetected) 07/26/22 Unknown Coronavirus 229E (PCR) Not Detected (NotDetected) 07/26/22 Unknown SARS-CoV-2 (PCR) Not Detected (NotDetected) 07/26/22 Unknown Coronavirus NL63 (PCR) Not Detected (NotDetected) 07/26/22 Unknown Human Metapneumovir PCR Not Detected (NotDetected) 07/26/22 Unknown Influenza Type A (PCR) Not Detected (NotDetected) 07/26/22 Unknown Influenza Type B (PCR) Not Detected (NotDetected) 07/26/22 Unknown Urine Legionella Ag SEE NOTE 07/26/22 Unknown M. pneumoniae (PCR) Not Detected (NotDetected) 07/26/22 Unknown Parainfluenza 1 (PCR) Not Detected (NotDetected) 07/26/22 Unknown Parainfluenza 2 (PCR) Not Detected (NotDetected) 07/26/22 Unknown Parainfluenza 3 (PCR) Not Detected (NotDetected) 07/26/22 Unknown Parainfluenza 4 (PCR) Not Detected (NotDetected) 07/26/22 Unknown RSV (RT-PCR) Negative (Neg) 07/24/22 11:50 RSV (PCR) Not Detected (NotDetected) 07/26/22 Unknown Entero/Rhino (PCR) Not Detected (NotDetected) 07/26/22 Unknown Blood Type O Positive 07/29/22 11:12 Blood Type Recheck O Positive 07/29/22 04:22 Antibody Screen NEGATIVE 07/29/22 11:12 Crossmatch See Detail 07/29/22 11:12 (1) Respiratory failure with hypoxia and hypercapnia Chronicity: acute on chronic Qualified Code(s): J96.21 - Acute and chronic respiratory failure with hypoxia; J96.22 - Acute and chronic respiratory failure with hypercapnia; J96.22 - Acute and chronic respiratory failure with hypercapnia
--- NOTE | 2022-08-04 14:48 | XRay Report ---
SINGLE VIEW CHEST CLINICAL HISTORY: Pulmonary edema. FINDINGS: An AP, portable, upright chest radiograph is compared to study dated 07/31/2022 and correlat ed with chest CT dated 07/08/2022. The examination is degraded by portable technique, apical lordotic p ositioning, and patient rotation. The heart is enlarged noting atherosclerotic calcification of the thoracic aorta. There is pulmonary vascular congestion. Emphysema and chronic interstitial thickening is similar to previous. Multifocal airspace consolidation is again seen throughout both lungs, great est in the left midlung and at the right lung base. This is modestly worsened as compared to 3. There are layering pleural effusions with dependent consolidation. Postoperative scarring are seen throughout both lungs. No pneumothorax is identified. The skeletal structures are osteopenic. The amanda ny thorax is grossly intact. There is atherosclerotic calcification of the carotid bulbs. Surgical cl ips project over the right axilla. IMPRESSION: 1. Cardiomegaly and advanced emphysema with evidence of congestive failure. 2. Asymmetric multifocal airspace consolidation is again seen throughout both lungs. This has modestl y worsened as compared to 07/31/2022. This could represent pulmonary edema and/or multifocal pneumonia . Clinical correlation will be required and radiographic follow-up to resolution is recommend. 3. Small pleural effusions with dependent consolidation. ACT 112: Negative or not required by law. Electronically signed by: Song Salcido M.D. 08/04/2022 2:46 PM
--- NOTE | 2022-08-04 17:09 | Cardiology Progress Note ---
Date of Service August 04, 2022 Assessment & Plan (1) Acute on chronic heart failure with reduced ejection fraction and diastolic dysfunction: (2) Acute respiratory failure with hypoxia and hypercapnia: Plan -Tolerating recent additions of furosemide 20 mg PO daily, midodrine 2.5 mg TID. -Add back Entresto. Admission and Anticipated Discharge Date Admission Date: July 24, 2022 Subjective Pt seen in follow up. He is sitting in the bedside chair. SR in the 80s present on telemetry. Completed a session of PT in his room today. Physical Exam Constitutional: + cachectic Respiratory: no respiratory distress and no labored breathing Auscultation: + rhonchi (improving); no crackles and no rales Cardiovascular: RRR, no murmur, no edema Gastrointestinal (Abdomen): normal bowel sounds, soft, nontender, no hepatosplenomegaly Neurologic: PERRL, EOMI, accommodation nl, no face palsy, no dysarthria Genitourinary: no De La Cruz catheter in place Results & Data ([facility]) Vital Signs (Past 12 Hours) Vital Signs Temp Pulse Pulse Resp BP Pulse Ox O2 Del Method 08/04/22 15:00 36.5 C 82 20 115/74 87 L Nasal Cannula 08/04/22 13:14 Nasal Cannula 08/04/22 11:13 36.8 C 90 23 120/72 92 Nasal Cannula 08/04/22 10:32 83 08/04/22 07:35 36.9 C 80 22 118/62 94 Nasal Cannula O2 Flow Rate 08/04/22 15:00 3 08/04/22 13:14 3 08/04/22 11:13 4 08/04/22 10:32 08/04/22 07:35 3.5 Laboratory Results CBC 08/04/22 Range/Units 06:48 WBC 9.25 (4.8-10.8) K/ul RBC 3.16 L (4.70-6.10) M/uL Hgb 9.4 L (14.0-18.0) g/dl Hct 30.0 L (42.0-52.0) % Plt Count 268 (130-400) K/uL Neut # (Auto) 8.11 H (1.40-6.50) K/uL Lymph # (Auto) 0.57 L (1.2-3.4) K/uL [place] # (Auto) 0.49 (0.11-0.59) K/uL Eos # (Auto) 0.00 (0-0.50) K/uL Baso # (Auto) 0.01 (0-0.2) K/uL Comprehensive Metabolic Panel 08/04/22 Range/Units 06:48 Sodium 138 (136-145) mmol/L Potassium 4.0 (3.5-5.1) mmol/L Chloride 95 L (98-107) mmol/L Carbon Dioxide 39 H (21-32) mmol/L BUN 27 H (6-23) mg/dl Creatinine 0.47 L (0.6-1.4) mg/dl Glucose 110 H (70-99(Fasting)) mg/dl Calcium 9.0 (8.5-10.1) mg/dl Intake and Output 08/04/22 08/04/22 08/04/22 06:59 14:59 22:59 Intake Total 100 / 250 395 / 395 Output Total 300 / 1025 300 / 300 Balance -200 / -775 95 / 95 Intake: Oral 100 / 250 395 / 395 Output: Urine 300 / 1025 300 / 300 Other: Weight 47.5 kg 47.5 kg Patient Weight 08/05/22 06:59 Weight 47.5 kg
--- NOTE | 2022-08-04 20:04 | Nephrology Progress Note ---
Date of Service August 04, 2022 Assessment & Plan (1) Metabolic alkalosis: Plan: compensating for respiratory acidosis, the latter which we will likely never correct only manage. K acceptable given his baseline in low to mid 30s (new this month) for bicarb, would be somewhat permissive about higher upper limit of bicarb in diuresing > to 40 or 41 if needed -cont lasix 10 mg bid17 IV -dose diamoxx when needed > if bicarb > 40 -daily bmp while in house -continue positive pressure ventilation to control/improve chronic respiratory acidosis > recommend at least 6 hrs daily ideally to give us room for lasix dosing but defer to primary team >started entresto 08/02; cont to monitor renal function as med onboards Will follow peripherally No OP nephrology f/u needed at this time but do recommend monitoring BMP at least weekly x 3 after [facility] d/c Admission and Anticipated Discharge Date Admission Date: July 24, 2022 Subjective seen on evening rounds. notes some pedal edema this evening > was up in chair all day . tells me he did "10 or 12" laps around room. denies worsening sob, n/v, worsening weakness. Review of Systems Review of Systems: All systems reviewed & are unremarkable except as noted in Subjective Physical Exam Constitutional: well developed, + cachectic, + frail appearing and cooperative Eyes: EOM intact bilaterally ENMT: Ears: no external ear abnormality Nose: no external nose abnormality Neck: no nuchal rigidity Respiratory: normal respiratory effort and able to speak in complete sentences (but labored with longer conversation) Auscultation: + diminished lung sounds, + crackles (bibasilar), + rhonchi and + wheezes Cardiovascular: Rate/Rhythm: regular rate and regular rhythm Extremities: no edema Gastrointestinal (Abdomen): Inspection/Auscultation: normal bowel sounds Percussion/Palpation: abdomen soft; abdomen nontender Musculoskeletal: Extremities: strength 5/5 throughout Skin: no rashes, warm and dry Psychiatric: Orientation: oriented x 3 Results & Data ([facility]) Vital Signs (Past 12 Hours) Vital Signs Temp Pulse Pulse Resp BP Pulse Ox O2 Del Method 08/04/22 19:31 36.6 C 77 18 116/76 95 Nasal Cannula 08/04/22 17:55 78 08/04/22 15:00 36.5 C 82 20 115/74 87 L Nasal Cannula 08/04/22 13:14 Nasal Cannula 08/04/22 11:13 36.8 C 90 23 120/72 92 Nasal Cannula 08/04/22 10:32 83 O2 Flow Rate 08/04/22 19:31 08/04/22 17:55 08/04/22 15:00 3 08/04/22 13:14 3 08/04/22 11:13 4 08/04/22 10:32 Laboratory Results 08/04/22 06:48 08/04/22 06:48
[2022-08-04] MEDS: ALBUTEROL 0.083% NEBU SOLN 3 ML VIAL INH PRN (22:19)
[2022-08-04 23:04] LABS: iSTAT Allen Test Pass; iSTAT Art Bld Gas pCO2 Correct 91 mmHg (35-46); iSTAT Art Bld Gas pH Corrected 7.193 (7.35-7.45); iSTAT Arterial Blood Gas HCO3 35 meg/L (19-24); iSTAT Arterial Blood Gas pCO2 92 mmHg (35-46); iSTAT Arterial Blood Gas pH 7.19 (7.35-7.45); iSTAT Arterial Blood Gas pO2 95 mmHg (80-95); iSTAT Arterial Blood Gas pO2 C 94; iSTAT Carbon Dioxide 38 mmol/L (24-31); iSTAT FiO2 100 %; iSTAT Hematocrit 32 % (42-52); iSTAT Hemoglobin 10.9 g/dl (14.0-18.0); iSTAT Potassium 4.7 mmol/L (3.3-5.0); iSTAT Site R Radial; iSTAT Sodium 132 mmol/L (135-144)
[2022-08-04] MEDS ORDERED: RAPID SEQUENCE INDUCTION BAG ONE (23:40)
[2022-08-04] MEDS ORDERED: methylPREDNISolone 60 MG in SYRINGE 0 ML IV STA (23:50)
[2022-08-05] MEDS ORDERED: SODIUM BICARB 8.4% INJ 50 MEQ/50 ML SYR IV ONE (00:25)
[2022-08-05] MEDS ORDERED: RAPID SEQUENCE INDUCTION BAG ONE (00:28)
[2022-08-05] MEDS ORDERED: ETOMIDATE 2 MG/ML 20 ML VIAL IV ONE ×2 (00:48→01:08)
[2022-08-05] MEDS ORDERED: ROCURONIUM BROMIDE 10 MG/ML 5 ML VIAL IV STA (00:48)
[2022-08-05] MEDS ORDERED: SODIUM BICARB 8.4% INJ 50 MEQ/50 ML SYR IV STA (00:48)
[2022-08-05] MEDS ORDERED: fentaNYL citrate 100 MCG/2 ML VIAL IV STA (00:48)
--- NOTE | 2022-08-05 01:04 | Procedure Note ---
Procedure Note Date of Service August 05, 2022 Note INTUBATION PROCEDURE NOTE: Proceduralist: Maycol NIELSEN ([facility]) Attending: Dr. Cooley Staff Attending Dr.. Cooley present throughout the whole procedure A time-out was completed verifying correct patient, procedure, site, positioning. Patient was evaluated and required intubation for Hypercarbia Sedative agent used: Etomidate 20mg IV x1 Paralysis agent used: Rocuronium 40mg IV x1 X Emergent consent was implied given patients rapidly declining clinical status and need for airway managment secondary to hypercarbic respiratory failure and hypercarbic encephalopathy The patient was prepared in the appropriate fashion. Sedation was achieved utilizing Etomomidate and Paralysis achieved with Rocuonium, per Dr. Cooley's administration. The patient was easily ventilated using current BIPAP-mask until sedated to achieve adequate oxygenation. A 8.0 Greek endotracheal tube was placed under direct visual laryngoscopy using glide scope blade #3 to 23 cm at the gum and 25 CM at the lip. Grade I view obtained and ETT was eaily passed through the vocal chords. The stylette was removed and balloon was inflated with 10mL of air. Appropriate Colorimetric change was appreciated. Bilateral breath sounds were heard without air sounds in the abdomen. [x ]Post Intubation Chest X-ray confirms placement without pneumothorax. Patient tolerated the procedure well and there were no immediate complications and was transferred to the ICU Coding CPT Codes Resuscitation - Resuscitation: 48307 Endotracheal Intubation, emergency ([id number]) [facility] Procedure Codes ([place]) Resuscitation Resuscitation: 51483 Endotracheal Intubation, emergency
[2022-08-05] MEDS ORDERED: MIDAZOLAM HCL 125 MG/250 ML BAG IV SCH (01:05)
[2022-08-05] MEDS ORDERED: MIDAZOLAM BOLUS FROM BAG IV PRN (01:05)
[2022-08-05] MEDS ORDERED: fentaNYL citrate 100 MCG/2 ML VIAL IV PRN (01:05)
[2022-08-05] MEDS ORDERED: STAT IV Infusion **Titration per Protocol STA ×3 (01:05→01:57)
--- NOTE | 2022-08-05 01:06 | Critical Care Consultation ---
Date of Consultation August 05, 2022 Assessment & Plan (1) Metabolic alkalosis: (2) Acute respiratory failure with hypoxia and hypercapnia: (3) Elevated troponin: (4) Pneumonia: (5) COPD (chronic obstructive pulmonary disease): (6) Acute on chronic heart failure with reduced ejection fraction and diastolic dysfunction: (7) CAD (coronary artery disease): (8) Ischemic cardiomyopathy: (9) Respiratory failure with hypoxia and hypercapnia: (10) On mechanically assisted ventilation: Plan Reason Critically Ill: Patient encephalopathic and unreponsive in the setting of severe hypercarbia and acidosis. Hypotensive on arrival that improved following NAHCo3 administration. Patient required emergent intubation prior to transfer to the ICU. Patient was successfully intubated and able to wean down FIo2. Patient will be treated for his hypercarbia, continue with diuresis as needed. Unfortunatley patient may be difficult to wean from ventilator. Will provide daily sedation awakenings as well as liberation attempts when acidosis and CO2 retention are improved. Follow neurological exams closely. Neuro - Enceophalopathy/hypercarbic narcosis, Sedation for mechanical ventilation CAM ICU: Unable to be performed - Correct CO2, and Acidosis- - Fentanyl and Versed infusions- goal MARK -2 - Neurological examinations- was not hypoxic but if remains difficult to arouse following sedation holidays and normal CO2 - consider MRI Cardiac - HFrEF, ICM, Hypotension, PAF, CAD - Continue with diuretics- currently on PO lasix- if he remains on pressors can continue - Continue Entresto as long as hemodynamics remain stable and renal function stable - Continue Plavix/ASA/Apixaban - Patient likely in his state not likely to survive a cardiac arrest event and likely difficult wean from ventilator- continue to establish a goals of care Respiratory - Hypercarbic respiratory failure requiring intubation and mechanical ventilation, COPD, Pulmonary edema, Bilateral patchy air space opacities - ETT right mainstem pulled back appropriately- follow daily CXR while intubated - Previously completed course of abx course that ended on 07/30/22 - Vanco, Cefepime, Doxy/Flagyl- improving aeration following intubation - hold on further abx therapy - ARDSnet lung protective ventilation strategy- 7ml/kg, RR 26 - adjust once CO2 controlled - COPD emphysema- continue diaily steroids, continue VIVIEN add Pulmicort Respules nebs until able to extubate for ICS - Daily weaning and spont trials GI - GERD - PPI convert to PO - Enteral Feeds if able to remain of pressors RENAL/LYTES - Respiratory Acidosis with Metabolic Alkalosis Follow with diuresing - appreciate nephrology recommendations - No acute needs - De La Cruz placed while intubated ENDO - DMII poor controlled - insulin sliding scale/ICU hyperglycemia protocol HEME - Anemia - Acute on chronic- history of ETOH misuse and iron deficiency anemia- Periphal smear completed 07/30/22- multifactorial as - Continue supplementation- transfuse for symptomatic/hypotensive/active hemorrhage or HGB <8 ID - No acute needs - follow fever curve and WBC- consider obtaining PCT - as above completed course of abx for pna treatment LINES/IV ACCESS - PIV, ETT, OGT, De La Cruz cathter Continue use of theese lines DVT PROPHYLAXIS - SCD's, Apixaban DISPO: ICU while intubated and sedated/on vasopressors I have personally spent 35 minutes of critical care time in the direct management of this patient. This is a life/limb threatening event. This includes time spent evaluating patient, direct bedside care, chart review, placing orders, interpretation of diagnostic studies, discussion with consultants, patient, and family members, as well as other required patient management activities. This time is exclusive of all separately billable procedures, and teaching time and separate from and in addition to any other critical care service time. Thank you for allowing us to participate in the care of this patient. Please refer to my attending physician's documentation for any further recommendations. History of Present Illness Reason for Consultation: hypercarbic respiratory failure Requesting Physician: Migue Caicedo MD Attending Physician: Don Cortez MD History of Present Illness 66 YOM well known to the ICU service for recent admissions for NH, Cardiogenic shock, HFrEF, Hypercarbic Respiratory Failure. Patient was recently in ICU Jul and . For his most recent ICU admission he was treated for pneumonia with antibiotics on and off BiPAP for his COPD/hypercarbia as well as vasopressors and inotrope support for his HF/cardiogenic shock, as well as metabolic alkalosis in the setting of diureses and chronic hypercapnia. ICU was alerted early this morning for patient unresponsive on his BiPAP. He had CT of the head completed that was negative for any acute process. The following ABG was noted with a PH 7.031, CO2 >130 and PaO2 of 85. Upon ICU evaluation, the patient was not responsive and with myoclonus jerks likely from his CO2 Narcosis. Dr. Cooley met me immediately at the bedside. Patient was emergently intubated on the PCU prior to being safely transported to ICU. Prior to intubation the patient was given 3 amps of 8.4 % sodium bicarb (150meq). Patient was previous conditional code and was changed back to full code on 31Jul2021. For his HFrEF- Entresto has been added as well as requiring daily diuresis. he was also transfused 1 u PRBC on 22Jul2022 for anemia. Attempt to call family was made by hospitalist service with no success. Patient will be managed in ICU for his hypercarbia- will likely need vasopressor/inotrope support if he were to decompensate further. COVID- NEGATIVE Allergies Allergy/AdvReac Type Severity Reaction Status Date / Time piperacillin [From Zosyn] Allergy Unknown ON Verified 07/08/22 02:26 [facility] tazobactam [From Zosyn] Allergy Unknown ON Verified 07/08/22 02:26 [facility] Home Medications Medication Instructions Recorded Confirmed Type albuterol sulfate 2.5 mg/3 mL 1.25 mg (1.5 mL) inhalation Q4H 07/15/22 07/24/22 Rx (0.083 %) solution for nebulization PRN bronchospasm #90 mL budesonide-formoterol HFA 80 1 inh inhalation BID #10.2 grams 07/15/22 07/24/22 Rx mcg-4.5 mcg/actuation aerosol inhaler (Symbicort) magnesium oxide 400 mg (241.3 mg 400 mg PO DAILY #30 tabs 07/15/22 07/24/22 Rx magnesium) tablet tiotropium bromide 18 mcg capsule 1 cap inhalation DAILY #30 07/15/22 07/24/22 R x with inhalation device (Spiriva inhalations with HandiHaler) albuterol sulfate 90 mcg/actuation 2 puff inhalation Q4H PRN 07/18/22 07/24/22 Rx aerosol inhaler Shortness Of Breath Or Wheezing #8.5 grams amiodarone 200 mg tablet 200 mg PO DAILY 30 days #30 tabs 07/18/22 07/24/22 Rx apixaban 5 mg tablet (Eliquis) 5 mg PO BID #60 tabs 07/18/22 07/24/22 Rx atorvastatin 80 mg tablet 80 mg PO DAILY 30 days #30 tabs 07/18/22 07/24/22 Rx clopidogrel 75 mg tablet (Plavix) 75 mg PO DAILY 30 days #30 tabs 07/18/22 07/24/22 Rx empagliflozin 10 mg tablet 10 mg PO QAM #30 tabs 07/18/22 07/24/22 Rx (Jardiance) furosemide 20 mg tablet (Lasix) 20 mg PO QAM 30 days #30 tabs 07/18/22 07/24/22 Rx iron,carbonyl 65 mg-vitamin C 125 1 tab PO DAILY 07/24/22 07/24/22 History mg tablet,delayed release (Vitron-C) omeprazole 20 mg capsule,delayed 20 mg PO DAILY 07/24/22 07/24/22 History release potassium chloride 20 mEq 20 meq PO DAILY 07/24/22 07/24/22 History tablet,extended release(part/cryst) sacubitril 24 mg-valsartan 26 mg 1 tab PO BID 07/24/22 07/29/22 History tablet Patient History Medical History Advanced care planning/counseling discussion Alcohol use disorder CAD (coronary artery disease) Multivessel disease COPD (chronic obstructive pulmonary disease) Diabetes mellitus, type II Heart failure with reduced ejection fraction HTN (hypertension) Ischemic cardiomyopathy Lung nodule NSTEMI (non-ST elevation myocardial infarction) Palliative care encounter Paroxysmal atrial fibrillation Surgical History Hx of colonoscopy Family History Other Cancer Hypertension Social History Smoking Status: Former smoker Tobacco Type: Cigarettes Hx Alcohol Use: Yes Alcohol type: beer Alcohol type Comment: 5 beers nightly, last drink 05/30/22 Hx Substance Use: No Preferred Language: Swiss Communication Ability: Effective Script Reader Required: No Beliefs That Will Affect Care: Mandaeism Current Living Situation: Family Other Information That Helps Us Care for You: No Feels Safe at Home: Yes Safety Concerns: Feels Safe At This Time Assistive Devices: Cane, Denture - Upper, Denture - Lower, Oxygen - Continuous and Walker Review of Systems Review of Systems: REVIEW OF SYSTEMS: Unabel to be obtained secondary to encephalopathy from CO2 Narcosis Physical Exam Physical Exam: PHYSICAL EXAM: General: dusky color and unresponsive Head: Normocephalic, atraumatic ENT: PERRLA, mucous membranes dry Neuro:AOx0, myocolonus jerks, Chest: equal rise and fall of the chest, accessory muscle use, no heaves or thirlls, decreased air movement throughout with auscultation, on room bi-pap, Cardiac: Regular rate and rhythm, telemetry reviewed, skin warm dry, cap refill <3 seconds, peripheral pusles +2 no JVD, no murmur, no JVD, no edema GI: NABS x 4 quadrants, soft, nontender to palpation, no rebound, guarding or tenderness :De La Cruz placed Skin: Echymosis to upper arms from previous blood draws Results & Data Results & Data ([facility]) Vital Signs (Past 12 Hours) Vital Signs Temp Pulse Pulse Resp BP BP Pulse Ox 08/04/22 22:05 37 C 101 H 22 128/57 L 90 08/04/22 22:45 99 H 24 97 08/04/22 22:30 93 H 34 H 94 08/04/22 22:15 90 27 H 72 L 08/04/22 22:00 97 H 33 H 85 L 08/04/22 21:56 128/57 L 08/04/22 21:56 99 H 29 H 86 L 08/04/22 21:45 113 H 29 H 92 08/04/22 21:30 114 H 26 H 87 L 08/04/22 21:15 108 H 20 69 L 08/04/22 21:00 103 H 25 H 86 L 08/04/22 20:45 99 H 21 86 L 08/04/22 20:30 78 26 H 96 08/04/22 20:15 78 26 H 94 08/04/22 20:00 80 24 94 08/04/22 22:25 87 26 H 91 08/04/22 22:21 89 26 H 90 08/04/22 21:32 115 H 27 H 91 08/04/22 20:00 08/04/22 19:31 36.6 C 77 18 116/76 95 08/04/22 17:55 78 08/04/22 15:00 36.5 C 82 20 115/74 87 L 08/04/22 13:14 O2 Del Method O2 Flow Rate FiO2 08/04/22 22:05 BiPAP 08/04/22 22:45 08/04/22 22:30 08/04/22 22:15 08/04/22 22:00 08/04/22 21:56 08/04/22 21:56 08/04/22 21:45 08/04/22 21:30 08/04/22 21:15 08/04/22 21:00 08/04/22 20:45 08/04/22 20:30 08/04/22 20:15 08/04/22 20:00 08/04/22 22:25 BiPAP 100 08/04/22 22:21 100 08/04/22 21:32 10 08/04/22 20:00 Nasal Cannula 3 08/04/22 19:31 Nasal Cannula 08/04/22 17:55 08/04/22 15:00 Nasal Cannula 3 08/04/22 13:14 Nasal Cannula 3 Laboratory Results Abnormal lab results 08/04/22 08/04/22 08/04/22 Range/Units 06:48 06:48 22:51 RBC 3.16 L (4.70-6.10) M/uL Hgb 9.4 L (14.0-18.0) g/dl POC Hgb 10.9 L (14.0-18.0) g/dl Hct 30.0 L (42.0-52.0) % POC Hct 32 L (42-52) % MCHC 31.3 L (32.0-36.0) g/dL RDW Std Deviation 52.6 H (36.4-46.3) fL RDW Coeff of Gordon 15.2 H (11.5-14.5) % Neut # (Auto) 8.11 H (1.40-6.50) K/uL Lymph # (Auto) 0.57 L (1.2-3.4) K/uL POC pH 7.19 L* (7.35-7.45) POC pCO2 92 H (35-46) mmHg POC HCO3 35 H (19-24) cristian/L POC Total CO2 38 H (24-31) mmol/L POC Base Excess 7.0 H (-9-1.8) cristian/L ABG pH (Temp Correct) 7.193 L* (7.35-7.45) ABG pCO2 (Temp Corrct 91 H (35-46) mmHg POC Sodium 132 L (135-144) mmol/L Chloride 95 L (98-107) mmol/L Carbon Dioxide 39 H (21-32) mmol/L BUN 27 H (6-23) mg/dl Creatinine 0.47 L (0.6-1.4) mg/dl BUN/Creatinine Ratio 57.4 H (10-20) Glucose 110 H (70-99(Fasting)) mg/dl Diagnostic Findings Chest X-Ray 08/04/22 07:00 SINGLE VIEW CHEST CLINICAL HISTORY: Pulmonary edema. FINDINGS: An AP, portable, upright chest radiograph is compared to study dated 07/31/2022 and correlated with chest CT dated 07/08/2022. The examination is degraded by portable technique, apical lordotic positioning, and patient rotation. The heart is enlarged noting atherosclerotic calcification of the thoracic aorta. There is pulmonary vascular congestion. Emphysema and chronic interstitial thickening is similar to previous. Multifocal airspace consolidation is again seen throughout both lungs, greatest in the left midlung and at the right lung base. This is modestly worsened as compared to 07/31/2022. There are layering pleural effusions with dependent consolidation. Postoperative scarring are seen throughout both lungs. No pneumothorax is identified. The skeletal structures are osteopenic. The bony thorax is grossly intact. There is atherosclerotic calcification of the carotid bulbs. Surgical clips project over the right axilla. IMPRESSION: 1. Cardiomegaly and advanced emphysema with evidence of congestive failure. 2. Asymmetric multifocal airspace consolidation is again seen throughout both l ungs. This has modestly worsened as compared to 07/31/2022. This could represent pulmonary edema and/or multifocal pneumonia. Clinical correlation will be required and radiographic follow-up to resolution is recommend. 3. Small pleural effusions with dependent consolidation. ACT 112: Negative or not required by law. Electronically signed by: Song Salcido M.D. 08/04/2022 2:46 PM Medications Administered pending on ICU arrival Coding Level of Care Code Critical Care 1st 30-74 mins Diagnoses Metabolic alkalosis E87.3 Acute respiratory failure with hypoxia and hypercapnia J96.01; J96.02 Elevated troponin R77.8 Pneumonia J18.9 Laterality: bilateral Pneumonia type: due to unspecified organism COPD (chronic obstructive pulmonary disease) J44.0 COPD type: COPD with acute lower respiratory infection Acute on chronic heart failure with reduced ejection fraction and diastolic dysfunction I50.43 CAD (coronary artery disease) I25.10 Ischemic cardiomyopathy I25.5 Respiratory failure with hypoxia and hypercapnia J96.21; J96.22; J96.22 Chronicity: acute on chronic On mechanically assisted ventilation Z99.11 (1) Pneumonia Laterality: bilateral Pneumonia type: due to unspecified organism (2) COPD (chronic obstructive pulmonary disease) COPD type: COPD with acute lower respiratory infection Qualified Code(s): J44.0 - Chronic obstructive pulmonary disease with (acute) lower respiratory infection (3) Respiratory failure with hypoxia and hypercapnia Chronicity: acute on chronic Qualified Code(s): J96.21 - Acute and chronic respiratory failure with hypoxia; J96.22 - Acute and chronic respiratory failure with hypercapnia; J96.22 - Acute and chronic respiratory failure with hypercapnia
[2022-08-05] MEDS ORDERED: ROCURONIUM BROMIDE 10 MG/ML 5 ML VIAL IV ONE (01:08)
[2022-08-05] MEDS ORDERED: fentaNYL citrate 100 MCG/2 ML VIAL IV ONE (01:08)
[2022-08-05] MEDS: fentaNYL citrate 2,500 MCG/250 ML BAG IV ONE ×2 (01:25→07:03)
[2022-08-05] MEDS ORDERED: fentaNYL BOLUS from BAG IV PRN (01:30)
[2022-08-05 01:35] LABS: iSTAT Allen Test Pass; iSTAT Art Bld Gas pCO2 Correct 65 mmHg (35-46); iSTAT Art Bld Gas pH Corrected 7.459 (7.35-7.45); iSTAT Arterial Blood Gas HCO3 47 meg/L (19-24); iSTAT Arterial Blood Gas pCO2 71 mmHg (35-46); iSTAT Arterial Blood Gas pH 7.43 (7.35-7.45); iSTAT Arterial Blood Gas pO2 326 mmHg (80-95); iSTAT Arterial Blood Gas pO2 C 315; iSTAT Carbon Dioxide > 40 mmol/L (24-31); iSTAT Hematocrit 32 % (42-52); iSTAT Hemoglobin 10.9 g/dl (14.0-18.0); iSTAT Potassium 3.9 mmol/L (3.3-5.0); iSTAT Site L Radial; iSTAT Sodium 139 mmol/L (135-144)
[2022-08-05] MEDS ORDERED: NOREPINEPHRINE/D5W 4 MG/250 ML IV ONE (02:03)
[2022-08-05] MEDS: NOREPINEPHRINE/D5W 4 MG/250 ML PLCT IV SCH ×4 (02:05→19:23)
[2022-08-05] MEDS: fentaNYL citrate 2,500 MCG/250 ML BAG IV SCH ×2 (02:05→04:08)
--- NOTE | 2022-08-05 02:49 | Procedure Note ---
Procedure Note Date of Service August 05, 2022 Note ARTERIAL LINE PROCEDURE NOTE: Procedure: Arterial Line Placement with direct ultrasound visualization Proceduralist: Maycol NIELSEN ([facility]) Attending: Dr. Cooley Indication: Monitoring on Pressors Anesthesia: x Lidocaine 1% Consent was implied as emergent as full code. Patient requiring vasopressor support and frequent ABG/blood draws Allens test was performed to ensure adequate perfusion. Patients LEFT wrist was prepped and draped in the usual sterile fashion with chloraprep and sterile barrier/sterile ultrasound sleeve. Ultrasound guidance was used to directly visualize needle placement. A 20g Arrow arterial line was introduced into the LEFT RADIAL artery. Brisk blood return was noted, the wire was advanced without resistance, the catheter was threaded easily, and the needle was removed with appropriate blood return. Good waveform was observed. The patient tolerated the procedure well. Site was secured with suture and sterile dressing applied Blood Loss: Minimal Complications: No immediate complications noted Procedural Ultrasound Guidance: Procedure Date: 08/05/2022 Indication: Direct Visualization for Arterial Line Placement Proceduralist: Maycol NIELSEN ([facility]) Attending: Dr. Cooley Artery Identified: YES Direct visualization of needle in artery: YES Complications: NO immediate complications Patient tolerated procedure: WELL Coding CPT Codes Tubes, Drains, and Vasc Access - Tubes, Drains, and Vasc Access: [id number] Place Catheter In Artery ([id number]) Tubes, Drains, and Vasc Access - Tubes, Drains, and Vasc Access: [id number] Ultrasound Guidance For Vascular ([id number]) [facility] [place] Codes (Charges) Tubes, Drains, and Vasc Access Procedure 1: Tubes, Drains, and Vasc Access: [id number] Place Catheter In Artery Procedure 2: Tubes, Drains, and Vasc Access: [id number] Ultrasound Guidance For Vascular
[2022-08-05 03:59] LABS: Base Excess ABG 18.6 mEq/L (-9-1.8); Basophils # (auto) 0.02 K/uL (0-0.2); Basophils % (auto) 0.1 %; HCO3 ABG 43 mmol/L (19-24); Hematocrit (blood only) 30.5 % (42.0-52.0); Hemoglobin 9.9 g/dl (14.0-18.0); Immature Granulocytes # (auto) 0.11 K/uL (0.01-0.20); Immature Granulocytes % (auto) 0.6 %; Lymphocytes # (auto) 0.64 K/uL (1.2-3.4); Lymphocytes % (auto) 3.3 %; Mean Corpuscular Hemoglobin 30.1 pg (25.0-34.0); Mean Corpuscular Hgb Conc 32.5 g/dL (32.0-36.0); Mean Corpuscular Volume 92.7 fL (80.0-100.0); Monocytes # (auto) 1.55 K/uL (0.11-0.59); Monocytes % (auto) 8.1 %; Neutrophils # (auto) 16.79 K/uL (1.40-6.50); Neutrophils % (auto) 87.9 %; Nucleated RBC # (auto) 0.02 K/uL (0-0.12); Nucleated RBC % (auto) 0.1 %; Oxygen Saturation ABG 96.3 % (90-95); PCO2 ABG 47 mmHg (35-46); PO2 ABG 68 mmHg (80-95); Platelet Count 345 K/uL (130-400); RDW Coefficient of Variation 15.2 % (11.5-14.5); RDW Standard Deviation 51.6 fL (36.4-46.3); Red Blood Count 3.29 M/uL (4.70-6.10); White Blood Count 19.11 K/ul (4.8-10.8)
[2022-08-05 04:09] LABS: Allen Test Pos (Pos); pH ABG 7.57 (7.35-7.45)
[2022-08-05 04:30] LABS: iSTAT Art Bld Gas pCO2 Correct 46 mmHg (35-46); iSTAT Arterial Blood Gas HCO3 43 meg/L (19-24); iSTAT Arterial Blood Gas pCO2 47 mmHg (35-46); iSTAT Arterial Blood Gas pH 7.57 (7.35-7.45); iSTAT Arterial Blood Gas pO2 53 mmHg (80-95); iSTAT Arterial Blood Gas pO2 C 50; iSTAT Carbon Dioxide > 40 mmol/L (24-31); iSTAT Hematocrit 30 % (42-52); iSTAT Hemoglobin 10.2 g/dl (14.0-18.0); iSTAT Potassium 3.8 mmol/L (3.3-5.0); iSTAT Site Art Line; iSTAT Sodium 140 mmol/L (135-144)
[2022-08-05 04:35] LABS: Albumin Globulin Ratio 1.5 (0.9-2); Albumin Level 3.3 gm/dl (3.4-5.0); BUN Creatinine Ratio 44.7 (10-20); Bilirubin,Total 0.6 mg/dl (0.2-1.0); Calcium 8.8 mg/dl (8.5-10.1); Creatinine Clr Calc Pharmacy 56.7 ml/min; Est GFR (African American) 104.5 ml/min; Est GFR (Non-African American) 90.2 ml/min; Globulin 2.2 gm/dl (2.5-4.0); Magnesium 2.2 mg/dl (1.7-2.4); Total Protein 5.5 gm/dl (6.0-8.3)
[2022-08-05 05:04] LABS: iSTAT Art Bld Gas pCO2 Correct 57 mmHg (35-46); iSTAT Art Bld Gas pH Corrected 7.504 (7.35-7.45); iSTAT Arterial Blood Gas HCO3 45 meg/L (19-24); iSTAT Arterial Blood Gas pCO2 58 mmHg (35-46); iSTAT Arterial Blood Gas pO2 87 mmHg (80-95); iSTAT Arterial Blood Gas pO2 C 84; iSTAT Carbon Dioxide > 40 mmol/L (24-31); iSTAT Hematocrit 30 % (42-52); iSTAT Hemoglobin 10.2 g/dl (14.0-18.0); iSTAT Potassium 3.7 mmol/L (3.3-5.0); iSTAT Site Art Line; iSTAT Sodium 139 mmol/L (135-144)
[2022-08-05] MEDS ORDERED: STAT IV STA (06:01)
[2022-08-05] MEDS ORDERED: CALCIUM GLUCONATE 10% 2,000 MG in DEXTROSE 5% 50 ML IV STA (06:05)
--- NOTE | 2022-08-05 07:02 | CT Scan Report ---
CT OF THE HEAD WITHOUT CONTRAST CLINICAL HISTORY: Altered mental status. COMPARISON STUDY: Head CT October 02, 2015. CT DOSE: 1855.08 mGy.cm TECHNIQUE: Helical axial images of the head were obtained without IV contrast. Automated exposure con trol was utilized for the study. A dose lowering technique was utilized adhering to the principles o f ALARA. FINDINGS: No acute intracranial hemorrhage, midline shift or mass effect is present. When matter hypo density suggests small vessel disease. The ventricular system is unremarkable. The basal cisterns are patent. No extra-axial collections are present. There are no findings to suggest acute dural sinus t hrombosis or acute territorial infarct. No significant calvarial abnormalities are present. Visualize d portions of the sinuses and mastoid air cells are clear. IMPRESSION: No acute intracranial findings. ACT 112: Negative or not required by law. Electronically signed by: Oc Huggins M.D. 08/05/2022 7:01 AM
--- NOTE | 2022-08-05 07:12 | XRay Report ---
XR chest 1V portable CLINICAL HISTORY: while intubated evaluate ETT, OGT, lines COMPARISON STUDY: Chest radiograph August 05, 2022 of 1:06 AM. FINDINGS: The tip of endotracheal tube is within the proximal right mainstem bronchus. The tube shoul d be withdrawn 3 cm. Tip of nasogastric tube is at least within the proximal stomach. There is no pne umothorax. Small bilateral pleural effusions are again noted. Interstitial thickening and extensive b ilateral airspace opacities have progressed. Note is made of cardiomegaly. Right axillary surgical cl ips. IMPRESSION: 1. Tip of endotracheal tube within the proximal right mainstem bronchus. The tube should be withdrawn 3 cm. This finding will be called/faxed to the ordering provider at time of dictation. 2. Progression of interstitial thickening and extensive bilateral airspace opacities. This could refl ect pulmonary edema or pneumonia. 3. Increase in bilateral pleural effusions, left larger than right. ACT 112: Negative or not required by law. Electronically signed by: Oc Huggnis M.D. 08/05/2022 7:10 AM
[2022-08-05 07:40] LABS: iSTAT Arterial Blood Gas HCO3 47 meg/L (19-24); iSTAT Arterial Blood Gas pCO2 68 mmHg (35-46); iSTAT Arterial Blood Gas pH 7.45 (7.35-7.45); iSTAT Arterial Blood Gas pO2 85 mmHg (80-95); iSTAT Carbon Dioxide > 40 mmol/L (24-31); iSTAT Site Art Line
[2022-08-05] MEDS: methylPREDNISolone 40 MG in SYRINGE 0 ML IV SCH ×3 (07:54→23:09)
[2022-08-05] MEDS: APIXABAN 5 MG TABLET PO SCH ×2 (07:56→21:10)
[2022-08-05] MEDS: THIAMINE HCL 100 MG TAB PO SCH (07:57)
[2022-08-05] MEDS: AMIODARONE 200 MG TAB PO SCH (07:57)
[2022-08-05] MEDS: ATORVASTATIN 40 MG TAB PO SCH (07:58)
[2022-08-05] MEDS: MIDODRINE HCL 2.5 MG TAB PO SCH (07:59)
[2022-08-05] MEDS: CLOPIDOGREL BISULFATE 75 MG TAB PO SCH (07:59)
[2022-08-05] MEDS ORDERED: BUDESONIDE 0.25 MG/2 ML VIAL (PULMICORT) NEB SCH (08:00)
--- NOTE | 2022-08-05 08:03 | XRay Report ---
XR chest 1V portable HISTORY: s/p intubation COMPARISON: Chest 08/04/2022. FINDINGS: The endotracheal tube is located within the right mainstem bronchus. The nasogastric tube t erminates below the diaphragm. The tip is not included on this study. No pneumothorax. Small right pl eural effusion and patchy bilateral airspace opacities persist. IMPRESSION: 1. The endotracheal tube is located within the right mainstem bronchus and should be withdrawn by roman roximately 4 to 5 cm. This report was called/faxed to the ordering physician following dictation. 2. Extensive bilateral airspace opacities and a small right pleural effusion persist. ACT 112: Negative or not required by law. Electronically signed by: Burak Santacruz M.D. 08/05/2022 8:01 AM
--- NOTE | 2022-08-05 08:31 | Communication Note ---
Date of Service: August 05, 2022 Last night patinet was getting confused and oxygen sats dropped. On bipap satsts improved but patinet was still confused. Opens eyes on calling but not answering any questions or obeying commands. ABg and stat ct head ordered. stat ct head ok. ABG showed ph 7.2 and c02 92 repeat abg on bipap co2 was worsening and patient getting tachypneic. Notified critical care and emergently intubated and transferred to ICU. Called son and daughter and left voice mail. Daughter later came to the hospital.
[2022-08-05] MEDS ORDERED: predniSONE 20 MG TAB PO SCH (09:00)
--- NOTE | 2022-08-05 09:48 | XRay Report ---
XR chest 1V portable HISTORY: Evaluate endotracheal tube following repositioning. COMPARISON: Chest 08/05/2022. FINDINGS: Endotracheal tube has been pulled back and now resides 1.9 cm from the jewels. The nasogast byron tube terminates below the diaphragm. The tip is not included on this study. No pneumothorax. Card iomegaly, patchy bilateral airspace opacities, and small bilateral pleural effusions persist. IMPRESSION: 1. Satisfactory support line placement. 2. No change in the bilateral airspace opacities and small bilateral pleural effusions ACT 112: Negative or not required by law. Electronically signed by: Burak Santacruz M.D. 08/05/2022 9:47 AM
[2022-08-05] MEDS ORDERED: SPIRONOLACTONE 12.5 MG TAB PO ONE (10:15)
[2022-08-05] MEDS ORDERED: POTASSIUM CHLORIDE 20 MEQ/15 ML UDC PO ONE (10:15)
[2022-08-05] MEDS: acetaZOLAMIDE 500 MG in SYRINGE 0 ML IV SCH ×2 (10:34→21:10)
--- NOTE | 2022-08-05 11:35 | Hospitalist Progress Note ---
Date of Service August 05, 2022 Assessment & Plan (1) Respiratory failure with hypoxia and hypercapnia: Plan: Multifactorial; acute on chronic systolic heart failure, COPD exacerbation. History of HFrEF, COPD on inhalers Patient develop acute on chronic respiratory acidosis on the night of August 04; intubated and transferred to ICU. Currently on vasopressors; supported with mechanical ventilation. Plan; Mechanical ventilation support. Hemodynamic support with vasopressors as per ICU. Status post 5 days of ertapenem Cardiology and nephrology on board; appreciate further recommendation. (2) Acute on chronic heart failure with reduced ejection fraction and diastolic dysfunction: Plan: He is a history of cardiogenic shock/ NSTEMI in the last couple of months and ischemic cardiomyopathy. PAF anticoagulated on Eliquis. Had initially required dobutamine earlier in the hospitalization. He is currently being supported with vasopressors. (3) Hematuria: Plan: Patient had indwelling [place] with dark red urine. On Eliquis for PAF Hemoglobin stable Urology on board; hematuria work-up to be done as outpatient. (4) CAD (coronary artery disease): Plan: 05/31/2022: NSTEMI, cardiogenic shock. S/p cardiac cath which showed severe multivessel CAD and was transferred to [facility]. Had multivessel PCI at [facility]. On atorvastatin, Plavix. Continue current medication. (5) Paroxysmal atrial fibrillation: Plan: Currently in sinus rhythm, continue amiodarone Eliquis as noted above. (6) COPD (chronic obstructive pulmonary disease): Plan: Continue with as needed nebulization Continue home inhalers IV steroids (7) Anemia: Plan: H/H has fallen since Jun 2022 (14.4/42 --> 8.5/27). Noticed to have hematuria. Urology consulted; hematuria work-up as outpatient. DVT Prophylaxis On Eliquis Disposition; ICU; currently requiring mechanical and hemodynamic support. DNR/DNI Discussed with daughter at bedside. Answered questions/queries. Admission and Anticipated Discharge Date Admission Date: July 24, 2022 Subjective Overnight, patient developed progressive respiratory distress and fatigue resulting in acute on chronic respiratory acidosis. He was intubated and was transferred to ICU. He is currently requiring vasopressors. He is sedated with fentanyl and Versed. His daughter is at bedside. Review of Systems Review of Systems: All systems reviewed & are unremarkable except as noted in Subjective Physical Exam Physical Exam: Constitutional: Intubated and sedated Head: Normocephalic, Atraumatic Respiratory: Decreased air entry bilaterally. Cardiovascular: RRR, no murmur, no edema Vessels: no JVD or carotid bruit Abdomen: Soft, nontender Musculoskeletal: no cyanosis or clubbing, Skin: no rashes, warm and dry normal turgor Neurologic: Intubated and sedated Psychiatric: Sedated with fentanyl/Versed Results & Data Results & Data ([facility]) Vital Signs (Past 12 Hours) Vital Signs Temp Pulse Resp BP BP Pulse Ox O2 Del Method 08/05/22 10:10 63 18 92 08/05/22 09:21 130/47 L 08/05/22 07:25 70 18 95 08/05/22 06:45 111/58 L 08/05/22 06:45 36.8 C 72 16 95 08/05/22 06:30 37.0 C 67 16 96 08/05/22 06:30 102/58 L 08/05/22 06:15 102/55 L 08/05/22 06:15 36.9 C 67 16 96 08/05/22 06:00 36.8 C 64 16 96 08/05/22 06:00 101/57 L 08/05/22 05:45 102/56 L 08/05/22 05:45 36.7 C 65 16 96 08/05/22 05:30 104/57 L 08/05/22 05:30 36.7 C 65 19 97 08/05/22 05:15 106/57 L 08/05/22 05:15 36.6 C 66 18 96 08/05/22 05:00 36.6 C 65 18 96 08/05/22 05:00 106/59 L 08/05/22 04:45 106/58 L 08/05/22 04:45 36.5 C 65 18 96 08/05/22 04:30 105/59 L 08/05/22 04:30 36.3 C L 65 18 95 08/05/22 04:15 110/77 08/05/22 04:15 36.2 C L 79 17 95 08/05/22 05:43 Mechanical Vent 08/05/22 04:00 65 104/57 L 08/05/22 04:00 08/05/22 04:50 61 18 96 08/05/22 04:10 69 18 94 08/05/22 04:00 36.2 C L 69 26 H 90 08/05/22 04:00 109/61 08/05/22 03:45 36.1 C L 67 26 H 90 08/05/22 03:45 115/61 08/05/22 03:30 95/54 L 08/05/22 03:30 36.0 C L 65 26 H 91 08/05/22 03:15 35.8 C L 64 26 H 90 08/05/22 03:15 118/62 08/05/22 03:06 83/48 L 08/05/22 03:06 35.7 C L 63 26 H 91 08/05/22 03:00 35.7 C L 62 26 H 92 08/05/22 03:00 79/46 L 08/05/22 02:50 73/44 L 08/05/22 02:50 35.6 C L 60 23 90 08/05/22 02:45 35.5 C L 60 26 H 90 08/05/22 02:45 79/45 L 08/05/22 02:36 75/47 L 08/05/22 02:36 35.4 C L 58 L 26 H 90 08/05/22 02:30 35.4 C L 59 L 26 H 90 08/05/22 02:30 68/43 L 08/05/22 02:15 83/50 L 08/05/22 02:15 35.2 C L 61 26 H 97 08/05/22 02:00 35.1 C L 64 26 H 96 08/05/22 02:00 75/47 L 08/05/22 01:57 35.1 C L 67 26 H 99 08/05/22 01:57 83/48 L 08/05/22 01:56 81/52 L 08/05/22 01:56 35.1 C L 68 23 08/05/22 01:21 34.8 C L 78 26 H 100 08/05/22 00:37 109/71 08/05/22 00:37 103 H 16 97 08/05/22 00:36 105 H 27 H 94 08/05/22 00:36 110/74 08/05/22 00:00 82 25 H 91 08/04/22 23:42 131/95 08/04/22 23:42 85 41 H 90 08/05/22 00:00 77 08/05/22 03:30 08/05/22 01:25 08/05/22 01:20 68 26 H 100 FiO2 08/05/22 10:10 60 08/05/22 09:21 08/05/22 07:25 60 08/05/22 06:45 08/05/22 06:45 08/05/22 06:30 08/05/22 06:30 08/05/22 06:15 08/05/22 06:15 08/05/22 06:00 08/05/22 06:00 08/05/22 05:45 08/05/22 05:45 08/05/22 05:30 08/05/22 05:30 08/05/22 05:15 08/05/22 05:15 08/05/22 05:00 08/05/22 05:00 08/05/22 04:45 08/05/22 04:45 08/05/22 04:30 08/05/22 04:30 08/05/22 04:15 08/05/22 04:15 08/05/22 05:43 60 08/05/22 04:00 08/05/22 04:00 60 08/05/22 04:50 60 08/05/22 04:10 60 08/05/22 04:00 08/05/22 04:00 08/05/22 03:45 08/05/22 03:45 08/05/22 03:30 08/05/22 03:30 08/05/22 03:15 08/05/22 03:15 08/05/22 03:06 08/05/22 03:06 08/05/22 03:00 08/05/22 03:00 08/05/22 02:50 08/05/22 02:50 08/05/22 02:45 08/05/22 02:45 08/05/22 02:36 08/05/22 02:36 08/05/22 02:30 08/05/22 02:30 08/05/22 02:15 08/05/22 02:15 08/05/22 02:00 08/05/22 02:00 08/05/22 01:57 08/05/22 01:57 08/05/22 01:56 08/05/22 01:56 08/05/22 01:21 08/05/22 00:37 08/05/22 00:37 08/05/22 00:36 08/05/22 00:36 08/05/22 00:00 08/04/22 23:42 08/04/22 23:42 08/05/22 00:00 08/05/22 03:30 40 08/05/22 01:25 60 08/05/22 01:20 100 Laboratory Results Laboratory Results WBC 19.11 K/ul (4.8-10.8) H 08/05/22 03:49 RBC 3.29 M/uL (4.70-6.10) L 08/05/22 03:49 Hgb 9.9 g/dl (14.0-18.0) L 08/05/22 03:49 POC Hgb 10.2 g/dl (14.0-18.0) L 08/05/22 04:49 Hct 30.5 % (42.0-52.0) L 08/05/22 03:49 POC Hct 30 % (42-52) L 08/05/22 04:49 MCV 92.7 fL (80.0-100.0) 08/05/22 03:49 MCH 30.1 pg (25.0-34.0) 08/05/22 03:49 MCHC 32.5 g/dL (32.0-36.0) 08/05/22 03:49 RDW Std Deviation 51.6 fL (36.4-46.3) H 08/05/22 03:49 RDW Coeff of Gordon 15.2 % (11.5-14.5) H 08/05/22 03:49 Plt Count 345 K/uL (130-400) 08/05/22 03:49 MPV 10.0 fL (9.4-12.4) 08/05/22 03:49 Immature Gran % (Auto) 0.6 % 08/05/22 03:49 Neut % (Auto) 87.9 % 08/05/22 03:49 Lymph % (Auto) 3.3 % 08/05/22 03:49 [place] % (Auto) 8.1 % 08/05/22 03:49 Eos % (Auto) 0.0 % 08/05/22 03:49 Baso % (Auto) 0.1 % 08/05/22 03:49 Neut # (Auto) 16.79 K/uL (1.40-6.50) H 08/05/22 03:49 Lymph # (Auto) 0.64 K/uL (1.2-3.4) L 08/05/22 03:49 [place] # (Auto) 1.55 K/uL (0.11-0.59) H 08/05/22 03:49 Eos # (Auto) 0.00 K/uL (0-0.50) 08/05/22 03:49 Baso # (Auto) 0.02 K/uL (0-0.2) 08/05/22 03:49 Immature Gran # (Auto) 0.11 K/uL (0.01-0.20) 08/05/22 03:49 Absolute Nucleated RBC 0.02 K/uL (0-0.12) 08/05/22 03:49 Nucleated RBC % (auto) 0.1 % 08/05/22 03:49 Peripher Smr Path Cons 07/28/22 03:55 PT 11.8 Seconds (9.0-12.0) 07/26/22 18:30 INR 1.1 (0.9-1.1) 07/26/22 18:30 APTT 57.2 Seconds (21.0-31.0) H* 07/27/22 04:48 PTT Ratio 2.1 07/27/22 04:48 Sample Site Art Line 08/05/22 07:23 POC pH 7.45 (7.35-7.45) 08/05/22 07:23 POC pCO2 68 mmHg (35-46) H 08/05/22 07:23 POC pO2 85 mmHg (80-95) 08/05/22 07:23 POC HCO3 47 cristian/L (19-24) H 08/05/22 07:23 POC Total CO2 > 40 mmol/L (24-31) H* 08/05/22 07:23 POC Base Excess 23.0 cristian/L (-9-1.8) H 08/05/22 07:23 ABG pH 7.57 (7.35-7.45) H* 08/05/22 03:49 ABG pH (Temp Correct) 7.504 (7.35-7.45) H* 08/05/22 04:49 ABG pCO2 47 mmHg (35-46) H 08/05/22 03:49 ABG pCO2 (Temp Corrct 57 mmHg (35-46) H 08/05/22 04:49 ABG pO2 68 mmHg (80-95) L 08/05/22 03:49 POC ABG pO2 at Pt Temp 84 08/05/22 04:49 ABG HCO3 43 mmol/L (19-24) H 08/05/22 03:49 POC ABG O2 Sat 96.0 % (90-95) H 08/05/22 07:23 ABG O2 Saturation 96.3 % (90-95) H 08/05/22 03:49 ABG Base Excess 18.6 mEq/L (-9-1.8) H 08/05/22 03:49 Horace Test NA 08/05/22 07:23 VBG pH 7.36 (7.36-7.41) 07/26/22 09:28 VBG pCO2 83 mmHg (38-50) H 07/24/22 12:07 VBG pO2 40 mmHg 07/24/22 12:07 VBG HCO3 35 mmol/L 07/24/22 12:07 VBG O2 Saturation < 60.0 % 07/24/22 12:07 VBG Base Excess 4.4 mEq/L 07/24/22 12:07 Oxygen Given 40% 08/05/22 03:49 O2 Delivery Device Ventilator 08/05/22 07:23 POC O2 Rate 18 08/05/22 07:23 Minute Ventilation 5.4 08/05/22 07:23 POC FiO2 100 % 08/04/22 22:51 Tidal Volume 300 08/05/22 07:23 PEEP 6 08/05/22 07:23 IPAP 20 08/04/22 22:51 POC Sodium 139 mmol/L (135-144) 08/05/22 04:49 Sodium 143 mmol/L (136-145) 08/05/22 03:49 POC Potassium 3.7 mmol/L (3.3-5.0) 08/05/22 04:49 Potassium 4.0 mmol/L (3.5-5.1) 08/05/22 03:49 POC Chloride 91 mmol/L (101-112) L 07/24/22 12:03 Chloride 96 mmol/L (98-107) L 08/05/22 03:49 Carbon Dioxide 41 mmol/L (21-32) H* 08/05/22 03:49 POC Total CO2 36 mmol/L (24-31) H 07/24/22 12:03 Anion Gap 6 (3-11) 08/05/22 03:49 POC Anion Gap 11.0 mmol/L (16-25) L 07/24/22 12:03 POC BUN 18 mg/dl (7-18) 07/24/22 12:03 BUN 38 mg/dl (6-23) H 08/05/22 03:49 Creatinine 0.85 mg/dl (0.6-1.4) D 08/05/22 03:49 POC Creatinine 0.5 mg/dl (0.6-1.3) L 07/24/22 12:03 Est Cr Clr Drug Dosing 56.7 ml/min 08/05/22 03:49 Est GFR ( Amer) 104.5 ml/min 08/05/22 03:49 Est GFR (Non-Af Amer) 90.2 ml/min 08/05/22 03:49 BUN/Creatinine Ratio 44.7 (10-20) H 08/05/22 03:49 Glucose 154 mg/dl (70-99(Fasting)) H 08/05/22 03:49 POC Glucose 121 mg/dl (70-99) H 07/31/22 16:08 POC Glucose (other) 140 mg/dl (70-99) H 07/24/22 12:03 Lactate 0.9 mmol/L (0.4-2.0) 07/26/22 17:15 Calcium 8.8 mg/dl (8.5-10.1) 08/05/22 03:49 POC Ioniz Calcium Amee 1.10 mmol/l (1.12-1.32) L 07/24/22 12:03 Ionized Calcium 1.04 mmol/L (1.12-1.32) L 08/05/22 03:49 Phosphorus 2.3 mg/dl (2.5-4.9) L 07/30/22 05:45 Magnesium 2.2 mg/dl (1.7-2.4) 08/05/22 03:49 Iron 38 mcg/dl (35-175) 07/29/22 04:23 Unsaturated IBC 180 mcg/dl (155-355) 07/29/22 04:23 Ferritin 825.9 ng/ml (8-388) H 07/29/22 04:23 Total Bilirubin 0.6 mg/dl (0.2-1.0) 08/05/22 03:49 Direct Bilirubin 0.4 mg/dl (0-0.2) H 07/24/22 11:50 AST 26 U/L (13-39) 08/05/22 03:49 ALT 35 U/L (7-52) 08/05/22 03:49 Alkaline Phosphatase 87 U/L (34-104) 08/05/22 03:49 Troponin I High Sens 29.5 pg/ml (0-20) H D 07/24/22 22:51 B-Natriuretic Peptide 2135 pg/ml (0-100) H 07/29/22 04:23 Total Protein 5.5 gm/dl (6.0-8.3) L 08/05/22 03:49 Albumin 3.3 gm/dl (3.4-5.0) L 08/05/22 03:49 Globulin 2.2 gm/dl (2.5-4.0) L 08/05/22 03:49 Albumin/Globulin Ratio 1.5 (0.9-2) 08/05/22 03:49 Vitamin B12 308 pg/ml (180-914) 07/29/22 04:23 Folate 9.18 ng/ml (>5.38) 07/29/22 04:23 Procalcitonin 0.71 ng/ml (0-0.5) H 08/01/22 08:34 Urine Color Red 08/01/22 20:02 Urine Appearance Cloudy (Clear) A 08/01/22 20:02 Urine pH 7.0 (4.5-7.5) 08/01/22 20:02 Ur Specific [place] 1.020 (1.000-1.030) 08/01/22 20:02 Urine Protein 1+ (Negative) H 08/01/22 20:02 Urine Glucose (UA) 3+ (Negative) H 08/01/22 20:02 Urine Ketones Negative (Negative) 08/01/22 20:02 Urine Blood 2+ (Negative) H 08/01/22 20:02 Urine Nitrite Negative (Negative) 08/01/22 20:02 Urine Bilirubin Negative (Negative) 08/01/22 20:02 Urine Urobilinogen Negative (Negative) 08/01/22 20:02 Ur Leukocyte Esterase Negative (Negative) 08/01/22 20:02 Urine WBC (Auto) 1-5 /hpf (0-5) 07/24/22 13:35 Urine RBC (Auto) 0-4 /hpf (0-4) 07/24/22 13:35 U Hyaline Cast (Auto) 1-5 /lpf (0-5) 07/24/22 13:35 U Epithel Cells (Auto) 5-10 /lpf (0-5) H 07/24/22 13:35 Urine Bacteria (Auto) Negative (Negative) 07/24/22 13:35 Urine RBC >30 /hpf (0-4) H 08/01/22 20:02 Urine WBC 0-5 /hpf (0-5) 08/01/22 20:02 Ur Epithelial Cells 0-5 /lpf (0-5) 08/01/22 20:02 Calcium Oxalate Crystal Present (None Prsent) A 08/01/22 20:02 Urine Bacteria Negative (Negative) 08/01/22 20:02 Urine Yeast Budding w/ Hyphae (None Prsent) A 08/01/22 20:02 Nasal Screen MRSA (PCR) Negative (Negative) 07/24/22 16:30 Ethyl Alcohol mg/dL < 10.0 mg/dl (<10.0) 07/24/22 12:00 Adenovirus (PCR) Not Detected (NotDetected) 07/26/22 Unknown B. pertussis DNA (PCR) Not Detected (NotDetected) 07/26/22 Unknown B.parapertussis DNA PCR Not Detected (NotDetected) 07/26/22 Unknown C. pneumoniae DNA (PCR) Not Detected (NotDetected) 07/26/22 Unknown Coronavirus OC43 (PCR) Not Detected (NotDetected) 07/26/22 Unknown Coronavirus HKU1 (PCR) Not Detected (NotDetected) 07/26/22 Unknown Coronavirus 229E (PCR) Not Detected (NotDetected) 07/26/22 Unknown SARS-CoV-2 (PCR) Not Detected (NotDetected) 07/26/22 Unknown Coronavirus NL63 (PCR) Not Detected (NotDetected) 07/26/22 Unknown Human Metapneumovir PCR Not Detected (NotDetected) 07/26/22 Unknown Influenza Type A (PCR) Not Detected (NotDetected) 07/26/22 Unknown Influenza Type B (PCR) Not Detected (NotDetected) 07/26/22 Unknown Urine Legionella Ag SEE NOTE 07/26/22 Unknown M. pneumoniae (PCR) Not Detected (NotDetected) 07/26/22 Unknown Parainfluenza 1 (PCR) Not Detected (NotDetected) 07/26/22 Unknown Parainfluenza 2 (PCR) Not Detected (NotDetected) 07/26/22 Unknown Parainfluenza 3 (PCR) Not Detected (NotDetected) 07/26/22 Unknown Parainfluenza 4 (PCR) Not Detected (NotDetected) 07/26/22 Unknown RSV (RT-PCR) Negative (Neg) 07/24/22 11:50 RSV (PCR) Not Detected (NotDetected) 07/26/22 Unknown Entero/Rhino (PCR) Not Detected (NotDetected) 07/26/22 Unknown Blood Type O Positive 07/29/22 11:12 Blood Type Recheck O Positive 07/29/22 04:22 Antibody Screen NEGATIVE 07/29/22 11:12 Crossmatch See Detail 07/29/22 11:[address] 08/04/22 22:52 CT OF THE HEAD WITHOUT CONTRAST CLINICAL HISTORY: Altered mental status. COMPARISON STUDY: Head CT October 02, 2015. CT DOSE: 1855.08 mGy.cm TECHNIQUE: Helical axial images of the head were obtained without IV contrast. Automated exposure control was utilized for the study. A dose lowering technique was utilized adhering to the principles of ALARA. FINDINGS: No acute intracranial hemorrhage, midline shift or mass effect is present. When matter hypodensity suggests small vessel disease. The ventricular system is unremarkable. The basal cisterns are patent. No extra-axial collections are present. There are no findings to suggest acute dural sinus thrombosis or acute territorial infarct. No significant calvarial abnormalities are present. Visualized portions of the sinuses and mastoid air cells are clear. IMPRESSION: No acute intracranial findings. ACT 112: Negative or not required by law. Electronically signed by: Oc Huggins M.D. 08/05/2022 7:01 AM Chest X-Ray 08/05/22 09:09 XR chest 1V portable HISTORY: Evaluate endotracheal tube following repositioning. COMPARISON: Chest 08/05/2022. FINDINGS: Endotracheal tube has been pulled back and now resides 1.9 cm from the jewels. The nasogastric tube terminates below the diaphragm. The tip is not included on this study. No pneumothorax. Cardiomegaly, patchy bilateral airspace opacities, and small bilateral pleural effusions persist. IMPRESSION: 1. Satisfactory support line placement. 2. No change in the bilateral airspace opacities and small bilateral pleural effusions ACT 112: Negative or not required by law. Electronically signed by: Burak Santacruz M.D. 08/05/2022 9:47 AM (1) Respiratory failure with hypoxia and hypercapnia Chronicity: acute on chronic Qualified Code(s): J96.21 - Acute and chronic respiratory failure with hypoxia; J96.22 - Acute and chronic respiratory failure with hypercapnia; J96.22 - Acute and chronic respiratory failure with hypercapnia
[2022-08-05 11:58] LABS: iSTAT Arterial Blood Gas HCO3 39 meg/L (19-24); iSTAT Arterial Blood Gas pCO2 71 mmHg (35-46); iSTAT Arterial Blood Gas pH 7.35 (7.35-7.45); iSTAT Arterial Blood Gas pO2 53 mmHg (80-95); iSTAT Carbon Dioxide > 40 mmol/L (24-31); iSTAT FiO2 50 %; iSTAT Site Art Line
--- NOTE | 2022-08-05 11:59 | Electrocardiogram Report ---
Test Reason : Blood Pressure : / mmHG Vent. Rate : 079 BPM Atrial Rate : 079 BPM P-R Int : 166 ms QRS Dur : 092 ms QT Int : 456 ms P-R-T Axes : 091 109 101 degrees QTc Int : 522 ms Suspect arm lead reversal, interpretation assumes no reversal Normal sinus rhythm Possible Left atrial enlargement Rightward axis Nonspecific ST and T wave abnormality Prolonged QT Abnormal ECG When compared with ECG of 24-JUL-2022 11:48, Nonspecific T wave abnormality no longer evident in Inferior leads T wave inversion now evident in Anterior leads Confirmed by Camron Gardner ([id number]) on 08/05/2022 11:58:28 AM Referred By: REFERRED SELF Confirmed By:Camron Gardner
[2022-08-05] MEDS: ICU Protocol for HYPERglycemia SCH ×3 (12:55→23:16)
--- NOTE | 2022-08-05 17:16 | Cardiology Progress Note ---
Date of Service August 05, 2022 Assessment & Plan (1) Acute respiratory failure with hypoxia and hypercapnia: (2) Acute on chronic heart failure with reduced ejection fraction and diastolic dysfunction: Plan - Patient with recurrent hypercapnic respiratory failure. -Baseline severe underlying lung disease. -Prognosis poor. -Case discussed with Dr. Cooley of critical care who had just had a discussion with the family with regards to goals of care and CODE STATUS now DNR. -Anticipate arrival of additional family members for further discussion. Admission and Anticipated Discharge Date Admission Date: July 24, 2022 Subjective Patient seen in cardiology follow-up. Overnight events reviewed. Patient remains sedated on the ventilator. His daughter is at the bedside. CODE STATUS recently changed to DNR. Physical Exam Physical Exam: Temp Pulse Resp BP Pulse Ox O2 Del Method O2 Flow Rate 36.7 C 70 18 106/62 90 10 08/05/22 13:00 08/05/22 16:00 08/05/22 14:55 08/05/22 13:00 08/05/22 14:55 08/05/22 08:00 08/04/22 21:32 FiO2 50 08/05/22 15:20 Constitutional: + ill appearing and + cachectic Respiratory: no respiratory distress and no labored breathing Auscultation: + diminished lung sounds, + rhonchi and + wheezes; no crackles and no rales Cardiovascular: RRR, no murmur, no edema Rate/Rhythm: regular rate and regular rhythm Extremities: no edema Gastrointestinal (Abdomen): normal bowel sounds, soft, nontender, no hepatosplenomegaly Musculoskeletal: Extremities: + muscle atrophy Neurologic: PERRL, EOMI, accommodation nl, no face palsy, no dysarthria Results & Data ([facility]) Diagnostic Findings Cardiac Enzymes 08/05/22 Range/Units 03:49 AST 26 (13-39) U/L CBC 08/05/22 Range/Units 03:49 WBC 19.11 H (4.8-10.8) K/ul RBC 3.29 L (4.70-6.10) M/uL Hgb 9.9 L (14.0-18.0) g/dl Hct 30.5 L (42.0-52.0) % Plt Count 345 (130-400) K/uL Neut # (Auto) 16.79 H (1.40-6.50) K/uL Lymph # (Auto) 0.64 L (1.2-3.4) K/uL [place] # (Auto) 1.55 H (0.11-0.59) K/uL Eos # (Auto) 0.00 (0-0.50) K/uL Baso # (Auto) 0.02 (0-0.2) K/uL Comprehensive Metabolic Panel 08/05/22 Range/Units 03:49 Sodium 143 (136-145) mmol/L Potassium 4.0 (3.5-5.1) mmol/L Chloride 96 L (98-107) mmol/L Carbon Dioxide 41 H* (21-32) mmol/L BUN 38 H (6-23) mg/dl Creatinine 0.85 D (0.6-1.4) mg/dl Glucose 154 H (70-99(Fasting)) mg/dl Calcium 8.8 (8.5-10.1) mg/dl AST 26 (13-39) U/L ALT 35 (7-52) U/L Alkaline Phosphatase 87 (34-104) U/L Total Protein 5.5 L (6.0-8.3) gm/dl Albumin 3.3 L (3.4-5.0) gm/dl EKG 08/05/2019 313 9 AM: Sinus rhythm at 79 bpm, nonspecific repolarization changes. Medications Administered Current Inpatient Medications Albuterol (Albuterol 0.083% Nebu Soln 3 Ml Vial) 1.25 mg INH Q4H PRN; Protocol PRN Reason: bronchospasm Stop: 08/23/22 18:17 Last Admin: 08/04/22 22:19 Dose: 1.25 mg Albuterol (Albuterol Hfa 8 Gm Inhaler) 2 puffs INH Q4H PRN PRN Reason: Shortness Of Breath Or Wheezing Stop: 08/23/22 18:17 Amiodarone HCl (Amiodarone 200 Mg Tab) 200 mg PO DAILY [facility]ANCOIS Stop: 08/24/22 08:59 Last Admin: 08/05/22 07:57 Dose: 200 mg Apixaban (Apixaban 5 Mg Tablet) 5 mg PO BID FRANCOIS Stop: 08/26/22 20:59 Last Admin: 08/05/22 07:56 Dose: 5 mg Atorvastatin Calcium (Atorvastatin 40 Mg Tab) 80 mg PO DAILY FRANCOIS Stop: 08/24/22 08:59 Last Admin: 08/05/22 07:58 Dose: 80 mg Budesonide (Budesonide 0.25 Mg/2 Ml Vial (Pulmicort)) 0.25 mg NEB QDR [facility] Stop: 09/04/22 07:59 Last Admin: 08/05/22 07:15 Dose: 0.25 mg Clopidogrel Bisulfate (Clopidogrel Bisulfate 75 Mg Tab) 75 mg PO DAILY [facility] Stop: 08/24/22 08:59 Last Admin: 08/05/22 07:59 Dose: 75 mg Fentanyl Citrate (Fentanyl Bolus From Bag) 50 mcg IV Q60M PRN PRN Reason: Pain or Agitation Stop: 08/19/22 01:29 Last Admin: 08/05/22 07:45 Dose: 50 mcg Fluticasone/Vilanterol (Fluticasone/Vilanterol 100/25mcg 14 Puffs/Inhaler) 1 puffs INH DAILY [facility] Stop: 08/24/22 08:59 Last Admin: 08/04/22 08:44 Dose: 1 puffs Furosemide (Furosemide 20 Mg Tab) 20 mg PO QAM [facility] Stop: 09/03/22 08:59 Last Admin: 08/04/22 08:45 Dose: 20 mg Methylprednisolone 40 mg/ (Syringe) 0.64 mls @ 1.5 mls/min IV Q8H [facility] Stop: 09/04/22 07:59 Last Admin: 08/05/22 16:35 Dose: 1.5 mls/min Midazolam HCl (Versed) 125 mg in 250 mls @ 3 mls/hr IV .[id number] [facility]; Protocol Stop: 09/04/22 01:04 Last Titration: 08/05/22 07:45 Dose: 1.5 mg/hr, 3 mls/hr Fentanyl Citrate (Fentanyl Citrate) 2,500 mcg in 250 mls @ 7.5 mls/hr IV .[id number] [facility]; Protocol Stop: 08/19/22 01:29 Last Titration: 08/05/22 07:45 Dose: 75 mcg/hr, 7.5 mls/hr Norepinephrine Bitartrate (Levophed/D5w) 4 mg in 250 mls @ 8.906 mls/hr IV .Q24H [facility]; Protocol Stop: 09/04/22 01:59 Last Admin: 08/05/22 13:50 Dose: 0.25 mcg/kg/min, 44.5 mls/hr Acetazolamide 500 mg/ Syringe 5 mls @ 5 mls/min IV Q12 [facility] Stop: 08/05/22 21:00 Last Admin: 08/05/22 10:34 Dose: 5 mls/min Ipratropium [place] (Ipratropium [place] Neb Soln 0.02% 2.5 Ml Vial) 0.5 mg INH Q6R PRN PRN Reason: Wheezing Stop: 08/30/22 06:59 Levalbuterol HCl (Levalbuterol 1.25mg/0.5ml Neb) 1.25 mg INH Q6R PRN PRN Reason: Wheezing Stop: 08/30/22 06:59 Magnesium Oxide (Magnesium Oxide 400 Mg Tab) 400 mg PO BID [facility] Stop: 08/29/22 08:59 Last Admin: 08/04/22 22:48 Dose: Not Given Midazolam HCl (Midazolam Bolus From Bag) 2 mg IV Q60M PRN PRN Reason: Sedation Stop: 09/04/22 01:04 Midodrine (Midodrine Hcl 2.5 Mg Tab) 2.5 mg PO TID@0800,1200,1700 [facility] Stop: 09/01/22 16:59 Last Admin: 08/05/22 07:59 Dose: 2.5 mg Miscellaneous (Icu Protocol For Hyperglycemia) 1 each N/A Q6 [facility] Stop: 08/07/22 11:59 Last Admin: 08/05/22 12:55 Dose: Not Given Pantoprazole Sodium (Pantoprazole 40 Mg Tab) 40 mg PO DAILY [facility] Stop: 08/24/22 08:59 Last Admin: 08/04/22 08:46 Dose: 40 mg Sacubitril/Valsartan (Valsartan/Sacubitril 26/24mg Tab) 1 tab PO BID [facility] Stop: 08/28/22 20:59 Last Admin: 08/04/22 22:48 Dose: Not Given Thiamine HCl (Thiamine Hcl 100 Mg Tab) 100 mg PO DAILY [facility] Stop: 08/28/22 08:59 Last Admin: 08/05/22 07:57 Dose: 100 mg
[2022-08-06] MEDS: NOREPINEPHRINE/D5W 4 MG/250 ML PLCT IV SCH (01:35)
[2022-08-06] MEDS ORDERED: MoRPHine SULFATE 2 MG/ML CARP IV PRN (01:55)
[2022-08-06] MEDS ORDERED: LORazepam 2 MG/1 ML VIAL IV PRN ×2 (01:55)
[2022-08-06] MEDS ORDERED: GLYCOPYRROLATE 0.2 MG/ML VIAL IV PRN (01:55)
[2022-08-06] MEDS ORDERED: ONDANSETRON 4 MG OD TAB SL PRN (01:55)
[2022-08-06] MEDS ORDERED: ONDANSETRON INJ 2 MG/ML 2 ML VIAL IV PRN (01:55)
[2022-08-06] MEDS ORDERED: PROMETHAZINE HCL 12.5 MG in SODIUM CHLORIDE 0.9% 50 ML IV PRN (01:55)
--- NOTE | 2022-08-06 02:05 | Communication Note ---
Date of Service: August 06, 2022 08/06/22- Family at bedside at 12:43- family voiced no questions, but want their father to be comfortable. We discussed process of terminal/paliative extubation process and goals. Family wishes to spend time with thier dad now and not be present for the extubation process or active passing process. They wish to come back to bedside when he has . We will shut off his sedation, ensure he is overbreathing ventilator, then proceed with terminating vasopressor medications, provide morphine for pain, dyspnea and air hunger, provide ativan for anxiety/siezures, robinol for secretions. Primary service notified of terminal extubation. [id number] see note
[2022-08-06] MEDS: MoRPHine SULFATE 10 MG/0.5 ML UDP PO PRN ×2 (02:23→02:35)
--- NOTE | 2022-08-06 03:11 | Death Pronouncement Note ---
Date of Service August 06, 2022 Pronouncement Note Admission Date Admission Date: July 24, 2022 Contributing Factors (1) Acute respiratory failure with hypoxia and hypercapnia: (2) Acute on chronic heart failure with reduced ejection fraction and diastolic dysfunction: Hospital Course Hospital Course: Patient admitted 07/24/22 for hypercarbic respiratory failure and mixed shock of cardiogenic and likely septic with pneumonia. Patient completed courses of antibiotics as well as required vasopressors and inotropes. Patient continued to require BiPAP for dyspnea and hypercarbia, as well as continual diuresis- patient ultimately required emergent intubation for hypercarbic respiratory failure and placment back on vasopressor support on 08/05/22. At this time decision was made to make patient comfortable and take off life support. All family arrived in the area and patient was terminally extubated at 0200 on 08/06/22. Patient at 0257. Summary Additional details: Date: 08/06/22 Time: 0257 I was present in patient's room following paliative extubation, patients rythm of asystole occurred at 0257 and pronouncement was performed by myself Assessment: Upon assessment, the patient was found to be in a terminal state. Pupils were fixed and dilated without response. No palpable pulses appreciated and no arterial waveform was noted via his arterial line and no electrical activity on telemetry. No spontaneous breaths noted. Heart sounds were absent. No response to painful stimuli. Time of : 025 as pronounced by myself. Family present at bedside. Appropriate response to grief appreciated. Condolences provided. Questions were addressed and emotional support was provided. Patients primary service was contacted and made aware of patient demise. Pronouncement section of the Certificate was filled out and signed by myself. Cause of : Primary - Hypercarbic hypoxic respiratory failure Secondary - Acute on Chronic Systolic Heart Failure Contributing Causes of - Ischemic Cardiomyopathy Please feel free to contact me with any questions regarding the above-mentioned course. Additional Data Attending physician: Don Cortez MD
--- NOTE | 2022-08-06 12:35 | Discharge Summary ---
Date of Service August 06, 2022 Admission HPI Per Admitting Provider Patient is 66-year-old male with PMH alcohol abuse, tobacco abuse, NSTEMI, history of cardiogenic shock, ischemic cardiomyopathy, atrial fibrillation anticoagulated on Eliquis, chest wall hematoma and others listed below presented to ER with complaint of shortness of breath. History obtained from patient, patient's daughter and extensive chart review. Hospital admission at [facility] on 05/31/2022 for acute respiratory failure, NSTEMI, cardiogenic shock, CHF, COPD exacerbation. Had urgent cardiac cath which showed severe multivessel CAD and was transferred to [facility]. At [facility] placed on intra-aortic balloon pump which was later upgraded to Impella. Had multivessel PCI. Hospital course was complicated by hemorrhagic shock and cardiogenic shock. He was intubated for pulmonary edema. Treated for pneumonia. He eventually was extubated and Impella removed. Had new onset A. fib during hospitalization. Discharged on Eliquis and amiodarone. [facility] 07[facility]22. Repeat hospitalization at [facility] on 07/08/2022-07/15/22 for acute respiratory failure, acute on chronic CHF, pneumonia. Patient required BiPAP, IV diuresis. He was discharged on 2L oxygen at rest and 4L with ambulation Daughter states called patient this morning and said he was not feeling himself. She states when she got to house she noted him to be short of breath. Patient seemed a little sweaty. EMS was called. It is reported that patient was noted to be hypoxic in the 70s on his home 4 L oxygen upon EMS arrival. EMS reported patient was also agitated. Upon arrival in ER patient was placed on BiPAP. During ER course patient with improved respiratory status. Further history obtained from patient's daughter who reports patient has had nonproductive cough since prior hospitalizations, however has not noticed any increased cough. Patient sleeps with 2 pillows and that has not changed during the past couple of weeks. Denies PND recently. Daughter notes increased leg swelling bilaterally over past couple of days which seems worse today. Saw PCP on 07/22/22 and was noted to have lower BP so Entresto dose was decreased. Daughter has been helping patient with medications. Denies any noted fever/chills, N/V/D/C, HATCH, dizziness, syncope, vision changes, neck pain, CP, palpitations, hemoptysis, sore throat, otalgia, rhinorrhea, abdominal pain, increased weakness, rashes, urinary symptoms. Chart review. 05/31/2022 echo: EF: 20-25%, posterior and inferior wall akinetic, severe global hypokinesis, moderate MR, mild TR 07/08/2022 echo: EF: 45-50%, grade 2 diastolic dysfunction, moderate MR 06/09/22 CT chest/abdomen/pelvis with findings of active extravasation from the Impella insertion site into the right subclavian with associated right pectoral pseudoaneurysm and hematoma measuring 4.4 X6.6X 4.9 cm. Consolidative and tree-in-bud opacities scattered throughout the lungs, most prominent in AMIRA, concerning for multifocal pneumonia. Cavitary lesion in RUL measuring 4.5 cm may represent cavitary pneumonia or cavitating mass. 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 Small hematomas and fat stranding surrounding bilateral femoral artery access sites Admission Exam Per Admitting Provider General: acute on Chronic ill appearing, appears fairly comfortable on bipap currently, WDWN Head: normocephalic, atraumatic Eyes: conjunctiva non-injected, anicteric ENT: normal inspection external ears, nose, mucous membranes moist Neck: supple, trachea midline Lungs: +rales bases, Currently on Bipap with R:24, sats: 96% CV: Regular rhythm, rate 98, 2-3+ pretibial edema Abd: normal BS, soft, non-tender Ext: no cyanosis, no erythema, no calf tenderness Neuro: A&O x 3, no focal deficits noted, normal affect Skin: warm, dry Principal Diagnosis (1) Respiratory failure with hypoxia and hypercapnia: (2) Acute on chronic heart failure with reduced ejection fraction and diastolic dysfunction: (3) Hematuria: Discharge Exam Patient Discharge Data Allergies Allergy/AdvReac Type Severity Reaction Status Date / Time piperacillin [From Zosyn] Allergy Unknown ON Verified 07/08/22 02:26 [facility] tazobactam [From Zosyn] Allergy Unknown ON Verified 07/08/22 02:26 [facility] Consultations 07/24/22 13:03 ED Decision to Admit Stat 07/24/22 14:05 Consult Cardiology Routine 07/24/22 16:33 Consult Financial Advocate Routine 07/26/22 09:29 Consult Palliative Care Routine 07/28/22 17:49 Consult Urology Routine 07/31/22 19:36 Consult Nephrology Routine 08/05/22 01:05 Consult Financial Advocate Routine Ordered Studies 08/04/22 22:52 CT head/brain wo con Urgent Hospital Course (1) Respiratory failure with hypoxia and hypercapnia: (2) Acute on chronic heart failure with reduced ejection fraction and diastolic dysfunction: (3) Hematuria: (4) CAD (coronary artery disease): (5) Paroxysmal atrial fibrillation: (6) COPD (chronic obstructive pulmonary disease): (7) Anemia: Plan Patient is 66-year-old male with PMH alcohol abuse, tobacco abuse, NSTEMI, history of cardiogenic shock, ischemic cardiomyopathy, atrial fibrillation anticoagulated on Eliquis, chest wall hematoma and others listed below presented to ER with complaint of shortness of breath. Patient had recent hx of cardiogenic shock, ischemic cardiomyopathy requiring intra-aortic balloon pump which was later upgraded to Impella. Patient was admitted to ICU requiring BIPAP. He was supported with vasopressors. Patient improved hemodynamically and transferred to PCU. Patient had frequent episodes of acute on chronic hypercapnic respiratory failure requiring BIPAP. CT chest showed pulmonary edema and emphysema. Patient blood pressure continues to have hypotensive episodes; wasn't able to tolerate high doses of diuresis. Cardiology and Nephrology were consulted for co-management. On 08/05/2022, patient had altered mental status; ABG was concerning for acute hypercapnia. He was intubated and transferred to ICU. He required vasopressors for hemodynamic support. Discussion was done with patient's family ; decision was made to proceed with terminal/palliative extubation. Patient on 08/06/2022 at 0257. Total Time Total Time Spent Total Time Spent (In Minutes): 8 Discharge Plan Discharge Items Patient Disposition: Other Date/Time: 08/06/22 02:57
== END 2022-08-06 04:55 | disposition expired | DRG 208 ==
LOC: ED 11:39 → 1E 15:18 → SUATTDRO 15:18 → 1E 16:31 → 2E 07-29 16:01 → 1E 08-05 00:42